=== PATIENT | female | born 1970 | race Caucasian/White ===

== ENCOUNTER 2024-03-05 06:31 | Outpatient (OUT) | payer OTHER, SELFPAY ==
--- NOTE | 2024-03-05 06:43 | MM_ITS ---
Patient Name: NAIMA HERNANDEZ MR#: [id number] : 1970 Exam Date: 03/05/2024 Ordering Doctor: DR REDDY ALBA . RADIOLOGY REPORT PROCEDURE: MM TOMOSYNTHESIS SCREENING BI COMPARISON: MG MAMM SCREEN 3D RONEN CAD, 11/05/2021. MAMMO RONEN SCREEN, 07/12/2020. MG MAMM SCREEN RONEN W CAD, 05/14/2019. MG MAMM RONEN DIAG W CAD DIG, 05/12/2013. INDICATIONS: Screening Calculator Name NCI Breast Cancer Risk Assessment Tool 5 Year Breast Cancer Risk 1.80% Lifetime Breast Cancer Risk 13.50% Personal Breast Cancer No Personal Ovarian Cancer No Treatments None Family Cancers None LOCATION: [facility] BREAST COMPOSITION: There are scattered areas of fibroglandular density. FINDINGS: DIAGNOSTIC CATEGORY 1--NEGATIVE. RIGHT BREAST: No significant suspicious finding. No significant change has occurred. LEFT BREAST: No significant suspicious finding. No significant change has occurred. RECOMMENDATIONS: ROUTINE MAMMOGRAM AND CLINICAL EVALUATION IN 12 MONTHS. PLEASE NOTE: A NORMAL MAMMOGRAM DOES NOT EXCLUDE THE POSSIBILITY OF BREAST CANCER. A CLINICALLY SUSPICIOUS PALPABLE LUMP SHOULD BE BIOPSIED. Dictated by: Vikas Negron M.D. on 03/05/2024 at 11:03 Approved by: Vikas Negron M.D. on 03/05/2024 at 11:04
--- NOTE | 2024-03-05 06:43 | XR_ITS ---
The [address] [address] Patient Name: NAIMA HERNANDEZ MRN: [id number] date: 1970 Sex: F Assigned Patient Location: [facility] Current Patient Location: [facility] Accession/Order Number: [id number] Exam Date: 03/05/2024 07:00 Report Date: 03/05/2024 07:37 At the request of: REDDY ALBA Procedure: XR DEXA axial skeleton EXAMINATION: XR DEXA axial skeleton HISTORY: Menopausal, Osteoporosis Screening COMPARISON: No relevant comparison available. TECHNIQUE: Dual-energy X-ray absorptiometry (DXA) was performed. FINDINGS: SPINE ANALYSIS: Average bone mineral density is 1.257 g/cm2. T-score (standard deviation relative to young adult mean): 0.6 . HIP ANALYSIS: Lowest bone mineral density is within the right femoral neck, 0.853 g/cm2. T-score (standard deviation relative to young adult mean): -1.3 . XR/XR DEXA axial skeleton IMPRESSION: World Health Organization Classification: Osteopenia - Moderate Fracture Risk FRAX: Cannot be calculated. Pharmacologic treatment recommendations * No uniform recommendation applies to all patients. Management plans must be individualized. * Consider initiating pharmacologic treatment in postmenopausal women and men >= 50 years of age who have the following: Primary fracture prevention: * T-score <= - 2.5 at the femoral neck, total hip, lumbar spine, 33% radius (some uncertainty with existing data) by DXA. * Low bone mass (osteopenia: T-score between - 1.0 and - 2.5) at the femoral neck or total hip by DXA with a 10-year hip fracture risk >= 3% or a 10-year major osteoporosis-related fracture risk >= 20% (i.e., clinical vertebral, hip, forearm, or proximal humerus) based on the [place]-adapted FRAXregistered model. Secondary fracture prevention: * Fracture of the hip or vertebra regardless of BMD [4, 5]. * Fracture of proximal humerus, pelvis, or distal forearm in persons with low bone mass (osteopenia: T-score between - 1.0 and - 2.5). The decision to treat should be individualized in persons with a fracture of the proximal humerus, pelvis, or distal forearm who do not have osteopenia or low BMD [12, 13]. Marian MS, Grecia SL, Praveen KL, Jill EM, Nghia KG, AJ, Libra ES. The clinician's guide to prevention and treatment of osteoporosis. Osteoporos Int. 2021;33(10):6543-0347. doi: 10.1007/g74975-423-96773-f. Epub 2021Aug 23. Erratum in: Osteoporos Int. 2021Nov 22;: PMID: [id number]; PMCID: [id number]. Electronically authenticated by: MILA STARKS Date: 03/05/2024 07:37
[2024-03-05 07:16] LABS: Alanine Aminotransferase 153 U/L (14-59); Albumin Globulin Ratio 1.1; Albumin Level 3.9 g/dL (3.4-5.0); Alkaline Phosphatase 102 U/L (46-116); Anion Gap 14.3; Aspartate Amino Transferase 98 U/L (15-37); BUN Creatinine Ratio 13.3; Bilirubin Total 0.4 mg/dL (0.2-1.0); Calcium 8.4 mg/dL (8.5-10.1); Carbon Dioxide 29.7 mmol/L (21.0-32.0); Chloride 105 mmol/L (98-107); Chol HDL Ratio 4.5; Cholesterol 232 mg/dL (<=200); Estimated GFR (African America >60 (>=60 mL/min/1.73m^2); Estimated GFR (Non-African Ame 59 (>=60 mL/min/1.73m^2); Globulin 3.6 g/dL; Glucose 112 mg/dL (74-106); HDL Cholesterol 51 mg/dL (40-60); Sodium 145 mmol/L (136-145); Total Protein 7.5 g/dL (6.4-8.2); Triglycerides 296 mg/dL (<=150); VLDL CHOLESTEROL 59.2 mg/dL
== END 2024-03-05 06:32 | disposition home or self-care (01) ==
LOC: MAMMO 06:31
PROVIDERS: PCP Family Medicine; Visit Provider Family Medicine
DX: Z12.31 Encounter for screening mammogram for malignant neoplasm of breast (principal); N95.1 Menopausal and female climacteric states; Z13.820 Encounter for screening for osteoporosis; Z09 Encounter for follow-up examination after completed treatment for conditions other than malignant neoplasm; R73.02 Impaired glucose tolerance (oral); I10 Essential (primary) hypertension; E78.2 Mixed hyperlipidemia; M85.80 Other specified disorders of bone density and structure, unspecified site
CPT/HCPCS: 36415; 77063; 77067; 77080; 80053; 80061

== ENCOUNTER 2024-03-29 20:45 | Outpatient (REF) | payer OTHER, SELFPAY ==
--- OUTSIDE RECORDS SUMMARY | 2024-03-29 20:50 | XMS_ITS | CCD ---
Author Organization [facility] Care Team Providers Care Manager Assembly Name Role Phone ANJALI, DR BLAKELY Admitting Unavailable HEMEYER, DR BLAKELY Attending Unavailable HEMEYER, DR BLAKELY Consulting Unavailable HEMEYER, DR BLAKELY Primary Care Unavailable HEMEYER, DR BLAKELY Admitting Unavailable HEMEYER, DR BLAKELY Attending Unavailable HEMEYER, DR BLAKELY Consulting Unavailable HEMEYER, DR BLAKELY Primary Care Unavailable HEMEYER, DR BLAKELY Primary Care Unavailable HEMEYER, DR BLAKELY Admitting Unavailable HEMEYER, DR BLAKELY Attending Unavailable HEMEYER, DR BLAKELY Consulting Unavailable MONTRELL WU Consulting Unavailable HEMEYER, DR BLAKELY Primary Care Unavailable KARASIK, DR MOORE Attending Unavailable KARASIK, DR MOORE Admitting Unavailable KARASIK, DR MOORE Consulting Unavailable KARASIK, DR MOORE Admitting Unavailable HEMEYER, DR BLAKELY Primary Care Unavailable KARASIK, DR MOORE Attending Unavailable KARASIK, DR MOORE Consulting Unavailable WEST, DR MONTRELL Auguste Consulting Unavailable Ernie Fuller Unavailable Enrique Alba Primary Care Unavailable Ernie Fuller Attending UnavailErnie Moreno Admitting Unavailabl Ben Gooden Unavailable Elyse Floresght E Primary Care Provider UnavailTaylor Nava RD Unavailable [phone] RADHA ABDUL Referring UnavailTAYLOR Nava Attending Unavailable GIANNA, RONAK E Primary Care Unavailable RADHA ABDUL Attending Unavailabl MIKE Rogers Referring Unavailable GIANNA, RONAK E Primary Care Unavailable MARIAJOSE ASHER Attending Unavailable ELYSE FLORESGHT E Primary Care Unavailable Enrique Alba MD Primary Care Provider ENRIQUE ALBA Attending Unavailable HEMEYER, EDWARD J Attending Unavailable ENRIQUE ALBA Attending Unavailable ENRIQUE ALBA Attending Unavailable SERENA HARRIS Attending Unavailable ENRIQUE ALBA Referring Unavailable ASTRID LORENZANA Attending Unavailable ENRIQUE ALBA Referring Unavailable ASTRID LORENZANA Attending Unavailable ENRIQUE ALBA Referring Unavailable SERENA HARRIS Attending Unavailable ENRIQUE ALBA Referring Unavailable ENRIQUE ALBA Attending Unavailable NGHIA VENTURA Attending Unavailable ENRIQUE ALBA Referring Unavailable ENRIQUE ALBA Attending Unavailable Allergies Allergy Classification Reported Allergen(s) Allergy Type Date of Onset Reaction(s) Facility (12 sources) DULoxetine Drug Allergy 2 [facility] (7 sources) metFORMIN Drug Allergy 4 GI intolerance [facility] Work Phone: Medications Current Medications Medication Drug Class(es) Dates Sig (Normalized) Sig (Original) [id number] 200 actuat albuterol 0.09 mg/actuat metered dose inhaler (14 sources) beta2-Adrenergic Agonist Start: 05-14-2023 take 2 puff(s) by inhalation every six hours for wheezing albuterol HFA (ProAir HFA) 90 mcg/act inhaler Indications: Bronchitis Inhale 2 puffs every 6 (six) hours if needed for wheezing 18 g 3 05/14/2023 Active Start: 09-26-2017 take 2 puff(s) by in halation every six hours as needed albuterol HFA (PROVENTIL HFA, VENTOLIN HFA) 90 mcg/actuation inhaler Inhale 2 Puffs as instructed every 6 hours as needed. 0 09/26/2017 Active Comment on above: Inhale 2 Puffs as in structed every 6 hours as needed. diclofenac sodium 0.03 mg/mg topical gel (12 sources) Nonsteroidal Anti-inflammatory Drug Start: 07-24-19 diclofenac sodium 3 % gel Apply 1 application topically every 6 (six) hours. 07/23/2021 Active fenofibrate 160 mg oral tablet (10 sources) Peroxisome Proliferator Receptor alpha Agonist Start: 03-15-20 24 End: 09-12-19 25 take 1 tablet by mouth once daily fenofibrate (Triglide) 160 MG tablet Indications: Mixed hyperlipidemia (CMS/HCC) Take 1 tablet (160 mg) by mouth Daily 90 tablet 1 03/15/2024 09/11/2024 Active Start: 03-11-2024 End: 03-15-2024 take 1 capsule by mouth once daily Fenofibrate 150 MG capsule Indications: Mixed dyslipidemia (CMS/HCC) Take 150 mg by mouth Daily 30 capsule 03/11/2024 03/15/2024 Discontinued (Formulary change) Start: 01-29-2023 End: 02-25-2024 take 1 tablet by mouth in the morning fenofibrate (Tricor) 145 MG tablet Indications: Mixed hyperlipidemia (CMS/HCC) Take 1 tablet (145 mg) by mouth in the morning. 90 tablet 1 01/29/2023 02/25/2024 Discontinued (Therapy completed) fluconazole 150 mg oral tablet (2 sources) Azole Antifungal Start: 03-29-2024 End: 03-29-2024 take 1 tablet by mouth once fluconazole (Diflucan) 150 MG tablet Indications: Yeast infection of the skin Take 1 tablet (150 mg) by mouth 1 (one) time for 1 dose 1 tablet 03/29/2024 03/29/2024 Active melatonin 10 mg oral tablet (12 sources) take 1 tablet by mouth at bedtime melatonin 10 MG tablet Take 1 tablet by mouth at bedtime. Active 24 hr metFORMIN hydrochloride 500 mg extended release oral tablet (7 sources) Biguanide Start: 03-11-2024 End: 04-10-2024 take 1 tablet by mouth every twenty-four hours at mealtime metFORMIN XR (Glucophage-XR) 500 MG 24 hr tablet Indications: Pre-diabetes Take 1 tablet (500 mg) by mouth in the evening. Take with meals Do not crush, chew, or split. 30 tablet 03/11/2024 04/10/2024 Active rOPINIRole 0.5 mg oral tablet (14 sources) Nonergot Dopamine Agonist Start: 09-15-2023 End: 03-11-2024 rOPINIRole (Requip) 0.5 MG tablet Indications: Restless Leg Syndrome One tablet at bedtime 90 tablet 1 03/11/2024 Active Completed/Discontinued Medications Medication Drug Class(es) Dates Sig (Normalized) Sig (Original) escitalopram 5 mg oral tablet (3 sources) Serotonin Reuptake Inhibitor Start: 12-25-2023 End: 02-25-2024 take 1 tablet by mouth once daily escitalopram (Lexapro) 5 MG tablet Indications: Recurrent major depressive disorder, in partial remission (HCC) (CMS/HCC) Take 1 tablet (5 mg) by mouth Daily 30 tablet 12/25/2023 02/25/2024 Discontinued (Therapy completed) gabapentin 300 mg oral capsule (6 sources) Anti-epileptic Agent Start: 08-19-2023 End: 02-25-2024 take 1 capsule by mouth at bedtime gabapentin (Neurontin) 300 MG capsule Indications: Acute left-sided back pain with sciatica Take 1 capsule (300 mg) by mouth at bedtime 90 capsule 1 08/19/2023 02/25/2024 Discontinued Start: 07-23-2023 End: 02-25-2024 gabapentin (Neurontin) 100 M G capsule Indications: Acute left-sided back pain with sciatica 2 capsules three times daily as needed for pain 180 capsule 1 07/23/2023 02/25/2024 Discontinued liothyronine sodium 0.005 mg oral tablet (1 source) l-Triiodothyronine End: 08-01-2022 take 1 tablet by mouth once daily liothyronine (CYTOMEL) 5 mcg tablet Take 5 mcg by mouth once daily. 0 08/01/2022 Discontinued Comment on above: Take 5 mcg by mouth once daily. meloxicam 15 mg oral tablet (6 sources) Nonsteroidal Anti-inflammatory Drug Start: 08-01-2022 End: 02-25-2024 take 1 tablet by mouth once daily meloxicam (MOBIC) 15 mg tablet Indications: Erosive osteoarthritis of both hands Take 1 tablet by mouth once daily. 30 tablet 2 08/01/2022 10/30/2022 Start: 10-14-2019 End: 08-01-2022 take 1 tablet by mouth once daily meloxicam (MOBIC) 7.5 mg tablet Take 1 tablet by mouth once daily. Stop all other anti-inflammatories 30 tablet 0 10/14/2019 08/01/2022 Discontinued (Changing Therapy/Dosage Form) Comment on above: Take 1 tablet by barrington th once daily. Take 1 tablet by barrington th once daily. Stop all other anti-inflammatories metaxalone 800 mg oral tablet (1 source) End: 08-01-2022 metaxalone (METAXALL) 800 mg tablet Take 800 mg by mouth as needed. 0 08/01/2022 Discontinued Comment on above: Take 800 mg by mouth as needed. Problems Active Problems Problem Classification Problem Date Documented Date Episodic/Chronic Administrative/social admission (2 sources) Advance directive discussed with patient; 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: [Other specified counseling] 02-19-2024 Episodic Diabetes mellitus without complication (20 sources) Impaired glucose tolerance (oral); 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: [Impaired glucose tolerance] Onset: 10-12-2021 09-17-2022 Episodic Disorders of lipid metabolism (20 sources) Mixed hyperlipidemia; 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: [Mixed hyperlipidemia] Onset: 03-29-2021 Chronic Essential hypertension (19 sources) Essential (primary) hypertension; 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: [Hypertensive disorder] Onset: 10-12-2021 Chronic Genitourinary symptoms and ill-defined conditions (20 sources) Urge incontinence of urine; 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: [Urge incontinence] Onset: 09-17-2022 09-17-2022 Chronic Immunizations and screening for infectious disease (1 source) Encounter for screening for human papillomavirus (HPV); 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: [ENC SCREENING HUMAN PAPILLOMAVIRUS] Onset: 11-05-2021 Episodic Malaise and fatigue (12 sources) Fatigue; 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: [Chronic fatigue, unspecified] Onset: 09-17-2022 09-17-2022 Chronic Menopausal disorders (2 sources) Menopausal syndrome; 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: [Menopausal and female climacteric states] 02-26-2024 Chronic Miscellaneous mental health disorders (12 sources) Insomnia disorder related to another mental disorder; 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: [Insomnia due to other mental disorder] Onset: 09-17-2022 09-17-2022 Chronic Mood disorders (12 sources) Recurrent major depression in partial remission; 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: [Major depressive disorder, recurrent, in partial remission] Onset: 09-17-2022 09-17-2022 Chronic Mycoses (2 sources) Candidiasis of skin; 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: [Candidiasis of skin and nail] 03-29-2024 Episodic Osteoarthritis (20 sources) Osteoarthritis of joint of bilateral hands; 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: [Erosive (osteo)arthritis] Onset: 09-17-2022 Chronic Other aftercare (3 sources) 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; 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: [long term (current) use of non-steroidal anti-inflammatories (NSAID)] Episodic Other connective tissue disease (3 sources) History of total knee arthroplasty; 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: [Presence of unspecified artificial knee joint] Onset: 11-27-2012 11-27-2012 Chronic Other diseases of bladder and urethra (12 sources) Overactive bladder; 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: [Overactive bladder] Onset: 09-17-2022 09-17-2022 Chronic Other female genital disorders (1 source) Other specified noninflammatory disorders of vagina; 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: [OTH SPEC NONINFLAMMATORY D/O VAGINA] Onset: 11-05-2021 Episodic Other hereditary and degenerative nervous system conditions (14 sources) Restless legs; 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: [Restless legs syndrome] Onset: 08-14-2023 08-14-2023 Chronic Other liver diseases (1 source) Inflammatory liver disease, unspecified; 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: [INFLAMMATORY LIVER DISEASE UNS] Onset: 10-18-2021 Chronic Other liver diseases (17 sources) Fatty (change of) liver, not elsewhere classified; 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: [Other chronic nonalcoholic liver disease] Onset: 10-18-2021 Chronic Other liver diseases (5 sources) Steatosis of liver; 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: [Fatty (change of) liver, not elsewhere classified] Chronic Other liver diseases (12 sources) Inflammatory disease of liver; 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: [Inflammatory liver disease, unspecified] Onset: 09-17-2022 09-17-2022 Chronic Other liver diseases (3 sources) Elevated liver enzymes level; 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: [Abnormal levels of other serum enzymes] Episodic Other liver diseases (3 sources) Abnormal levels of other serum enzymes; 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: [Abnormal levels of other serum enzymes] Onset: 02-20-2022 Episodic Other nervous system disorders (12 sources) Chronic pain; 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: [Other chronic pain] Onset: 09-17-2022 09-17-2022 Chronic Other nutritional; endocrine; and metabolic disorders (2 sources) Obesity; 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: [Obesity, unspecified] Chronic Other nutritional; endocrine; and metabolic disorders (1 source) Severe obesity; 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: [Morbid (severe) obesity due to excess calories] Chronic Other nutritional; endocrine; and metabolic disorders (14 sources) Morbid obesity; 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: [Morbid (severe) obesity due to excess calories] Onset: 09-17-2022 09-17-2022 Chronic Other nutritional; endocrine; and metabolic disorders (14 sources) Body mass index 40+ - severely obese; 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: [Body mass index (BMI) 45.0-49.9, adult] Onset: 05-14-2023 05-14-2023 Chronic Other screening for suspected conditions (not mental disorders or infectious disease) (13 sources) Encounter for screening mammogram for malignant neoplasm of breast; 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: [Encounter for screening for malignant neoplasm of cervix] Onset: 11-01-2021 Episodic Residual codes; unclassified (12 sources) Dependence on enabling machine or device; 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: [Dependence on other enabling machines and devices] Onset: 09-17-2022 09-17-2022 Chronic Residual codes; unclassified (12 sources) Obstructive sleep apnea syndrome; 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: [Obstructive sleep apnea (adult) (pediatric)] Onset: 09-17-2022 09-17-2022 Chronic Residual codes; unclassified (1 source) Acquired absence of other specified parts of digestive tract; 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: [ACQ ABSENCE OTH PART DIGESTV TRACT] Onset: 10-18-2021 Episodic Unclassified (1 source) New Patient Onset: 10-30-2022 Past or Other Problems Problem Classification Problem Date Documented Da te Episodic/Chronic Other female genital disorders (12 sources) Pain in female genitalia on intercourse; 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: [Unspecified dyspareunia] Onset: 09-17-2022 Resolved: 02-25-2024 09-17-2022 Chronic Other female genital disorders (12 sources) Disorder of female genital system; 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: [Unspecified condition associated with female genital organs and menstrual cycle] Onset: 09-17-2022 Resolved: 12-11-2023 12-11-2023 Episodic Other nervous system disorders (12 sources) Left-sided piriformis syndrome; 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: [Lesion of sciatic nerve, left lower limb] Onset: 09-17-2022 Resolved: 02-25-2024 09-17-2022 Chronic Other non-traumatic joint disorders (3 sources) Pain in right knee; 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: [Pain in joint, lower leg] Onset: 08-26-2012 08-26-2012 Episodic Residual codes; unclassified (12 sources) Sleep disorder; 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: [Sleep disorder, unspecified] Onset: 09-17-2022 09-17-2022 Episodic Thyroid disorders (12 sources) Sick-euthyroid syndrome; 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: [Sick-euthyroid syndrome] Onset: 09-17-2022 09-17-2022 Episodic Results Test Name Value Interpretation Reference Range Facility ALL LIPID PROFILE (FASTING)o n 03-05-2024 CHOL HDL RATIO 4.5 [facility] Comment on above: 3.3 - 4.4 LOW RISK 4.4 - 7.1 AVERAGE RISK 7.1 - 11.0 MODERATE RISK >11.0 HIGH RISK Cholesterol [Mass/Vol] 232 mg/dL High NINF - 200 mg/dL [facility] Cholesterol in HDL [Mass/Vol] 51 mg/dL 40 - 60 mg/dL [facility] Comment on above: > or =60 mg/dl - LOW CARDIOVASCULAR RISK <40 mg/dl - HIGH CARDIOVASCULAR RISK Magnesium [Mass/Vol] 122 mg/dL [facility] Comment on above: <100 mg/dl OPTIMAL 100-129 mg/dl NEAR OR ABOVE OPTIMAL 130-159 mg/dl BORDERLINE HIGH 160-189 mg/dl HIGH >190 mg/dl VERY HIGH Magnesium [Mass/Vol] 59.2 mg/dL [facility] Triglyceride [Mass/Vol] 296 mg/dL High NINF - 150 mg/dL [facility] CMP (CMP) (FOR REMOTE FH C USE)on 03-05-2024 Albumin [Mass/Vol] 3.9 g/dL 3.4 - 5.0 g/dL [facility] ALBUMIN GLOBULIN RATIO 1.1 [facility] ALP [Catalytic activity/Vol] 102 U/L 46 - 116 U/L [facility] ALT [Catalytic activity/Vol] 153 U/L High 14 - 59 U/L [facility] Anion gap [Moles/Vol] 14.3 mmol/L [facility] AST [Catalytic activity/Vol] 98 U/L High 15 - 37 U/L [facility] Bilirubin [Mass/Vol] 0.4 mg/dL 0.2 - 1.0 mg/dL [facility] Calcium [Mass/Vol] 8.4 mg/dL Low 8.5 - 10. 1 mg/dL [facility] Chloride [Moles/Vol] 105 mmol/L 98 - 107 mmol/L [facility] CO2 [Moles/Vol] 29.7 mmol/L 21.0 - 32.0 mmol/L [facility] Creatinine [Mass/Vol] 0.98 mg/dL 0.55 - 1.02 mg/dL [facility] GFR/1.73 sq M.predicted CKD-EPI (S/P/Bld) [Vol rate/Area] >60 >=60 mL/min/1.73m 2 [facility] Globulin (S) [Mass/Vol] 3.6 g/dL [facility] Glucose [Mass/Vol] 112 mg/dL High 74 - 106 mg/dL [facility] Potassium [Moles/Vol] 4 mmol/L 3.5 - 5.1 mmol/L [facility] Protein [Mass/Vol] 7.5 g/dL 6.4 - 8.2 g/dL [facility] Sodium [Moles/Vol] 145 mmol/L 136 - 145 mmol/L [facility] TBH EGFR-NON AF BANGLADESHI 59 Low >=60 mL/min/1.73m 2 [facility] Urea nitrogen [Mass/Vol] 13 mg/dL 7.0 - 18.0 mg/dL [facility] Urea nitrogen/Creatinine [Mass ratio] 13.3 mg/mg [facility] No Panel Informationon 03-05 Interpretation and review of laboratory results Abnormal [facility] CNOVon 10-30-2022 CNOV Office Visit (GASTAV ) NAIMA RIOS ([id number]) 1970 F Date Time Provider Department 10/30/22 1:00 PM RADHA ABDUL During your visit today, we recorded the following information about you: Weight Height 120.2 kg 1.6 m Radha Richey MD 10/30/2022 2:34 PM Signed [facility]atology Clinic Mindy Richey MD, FACG, FAASLD Director, [facility] Hepatology [facility] Consult Requested By: Mike Saeed [id number] [facility] [id number] for evaluation of her fatty liver .. Thank you Dr Alba I will share my finding via in basket HPI: Follows with Dr Spears 52 yo lady with partner she has been with a BMI> 46 for years she had a fibroscan 01/2022 showing fatty liver unsure of scarring never had a liver biopsy she has abnormal liver enzymes she has dyslipidemia she has no CAD has not seen nutritonist liver US IMPRESSION: 1 liver is prominent in size measuring 18 cm. There is diffuse increased echogenicity of liver consistent with fatty infiltration of the liver. 2. Absent gallbladder. 3. The remainder the right upper quadrant was unremarkable. Electronically authenticated by: MONTRELL WU Date: 2021-10-16 07:39 never used to drink alcohol GENERAL REVIEW OF SYSTEMS: GENERAL: No unexplained weight changes or fevers. HEENT: Negative for severe headaches, negative for changes in hearing or vision. NECK: Negative for lumps, masses or pain. RESPIRATORY: Negative for coughing, wheezing or significant dyspnea. CARDIOVASCULAR: Negative for chest pain or heart palpitations. GASTROINTESTINAL: Negative for rectal bleeding or black tarry stools. GENITOURINARY: Negative for dysuria or urinary incontinence. MUSCULOSKELETAL: Negative for unexplained joint pains, dislocations or fractures. NEUROLOGIC: Negative for unexplained weakness or vertigo. SKIN: Negative for new lesions or rashes. ENDOCRINE: Negative for cold or heat intolerance . has a CPAP No family history on file. PAST MEDICAL HISTORY Diagnosis Date Bilateral knee pain 08/26/2012 OA BMI 40.0-44.9, adult (HCC) BMI 42 Mixed hyperlipidemia Hyperlipidemia PAST SURGICAL HISTORY Procedure Laterality Date ARTHRS KNE SURG W/MENISCECTOMY MED/LAT W/SHVG Bilateral DELIVERY ONLY , low transverse COLONOSCOPY FLX DX W/COLLJ SPEC WHEN PFRMD Colonoscopy EGD EXTRACTION, ERUPTED TOOTH OR EXPOSED ROOT (ELEVATION AND/OR FORCEPS REMOVAL) Social History Tobacco Use Smoking status: Never Smokeless tobacco: Never Substance Use Topics Alcohol use: No Drug use: No Current Outpatient Medications on File Prior to Visit Medication Sig albuterol HFA (PROVENTIL HFA, VENTOLIN HFA) 90 mcg/actuation inhaler Inhale 2 Puffs as instructed every 6 hours as needed. meloxicam (MOBIC) 15 mg tablet Take 1 tablet by mouth once daily. No current facility-administered medications on file prior to visit. albuterol HFA (PROVENTIL HFA, VENTOLIN HFA) 90 mcg/actuation inhaler Inhale 2 Puffs as instructed every 6 hours as needed. meloxicam (MOBIC) 15 mg tablet Take 1 tablet by mouth once daily. PHYSICAL EXAMINATION: Ht 5' 3 (1.60m) Wt 265 lb (120.2kg) LMP 03/09/2013 BMI 46.95 kg/(m2). General: well appearing no distress HEENT negative no icterus Lungs CTA ronen COR rrm- Abdomen benign Extremities no edema no spiders no palmar erythema WASHER CARCASS no asterixis , a+0 X3 Glucose Date Value Ref Range Status 03/31/2013 157 (H) 65 - 100 mg/dL Final CRP Date Value Ref Range Status 10/14/2019 0.6 <0.9 mg/dL Final TG 230 HDL 50 ast /alt 36/50 Fibroscan done 01/2022 A/p: Dear Dr Alba Naima is a 52 yo lady she has abnormal liver tests, fatty liver, and a bmi> 45, YOLI we discussed need for : nutriional referral start GLP1RA/ Wegovy start statins exercise 300 min a week plus 3 days a week strenuous patient to discuss the above with Dr Alba rtc 4-7m Radha Richey MD Consider seeing me at [facility] on a Thank you again for your kind referral. Please feel free to contact me if I can be of further assistance to you {I spent 45 minutes in the visit, with more than 50% of the total dayl-vu-sbfu time of the visit in counseling / coordination of care. Referring Provider: MIKE SAEED [[id number]] Allergies As of Date: 10/30/2022 (No Known Allergies) Date Reviewed: 10/30/2022 Reviewed by: RIVER Stuart - Fully Assessed Reason for Visit: New Patient [172] Cmt: Consult for fatty liver Primary Visit Diagnosis:Fatty liver [K76.0] Other Visit Diagnosis:Class 3 severe obesity due to excess calories in adult, unspecified BMI, unspecified whether serious comorbidity present (HCC) [E66.01] Order(s):CELIAC SCREEN WITH REFLEX [SQCELSCR] Order #: [id number] FUTURE HEPATITIS A ANTIBODY, IGG [SQAHAVG] Order #: [id number] FUTURE (more content not included)... Normal [facility] CNOVon 08-01-2022 CNOV Office Visit (VONNIEUAV ) NAIMA RIOS ([id number]) 1970 F Date Time Provider Department 08/01/22 3:00 PM MARIAJOSE ASHER During your visit today, we recorded the following information about you: Pulse Blood pressure 101/minute 177/81 Mariajose Asher MD 08/01/2022 3:52 PM Signed Rheumatology Outpatient Clinic Date of Service: 08/01/2022 Patient: Naima Rios Medical Record: [id number] Primary Care Physician: Ronak Flores Last Rheumatology visit: None at [facility] History of Present Illness Naima Rios is a 51 year old White female who presents on 08/01/2022 for an in-person visit for evaluation of New Patient (Arthritis in hands ) and Joint Pain. She is currently taking meloxicam. Naima is RF negative - 9 (10/14/2019). Her most recent ARTIE was negative (10/14/2019). HISTORY OF PRESENT ILLNESS Patient presents for evaluation of joint pain in several different joints. She states that she is have problems with the DIP joints of several of the fingers most active in her left second DIP joint. She has also had problems with her feet particular her right second and third toe have flared to the point where she thought she had a gout attack on 1 occasion in terms just to be a osteoarthritis flareup. She has some left hip pain and bilateral shoulder pain. She has had bilateral knee replacements due to her osteoarthritis. She is seen orthopedic surgery Dr. Romo in 2019 did labs that were all normal and noncontributory for her arthritis assessment. She also underwent hand x-rays that show erosive changes of osteoarthritis in the DIP joints. He had recommended occupational therapy which gave her slight improvement. She also initiated meloxicam at 7.5 mg orally once each day. She has tried this in combination with topical Voltaren gel and feels the gel has provided little additional benefit. She feels she does best when she is on consistent meloxicam. Her family doctor states that he is not comfortable with the risks associated with chronic NSAID use and recommends intermittent use. Patient feels that intermittent use is ineffective and painful. Patient-Entered Data PAIN EVALUATION 07/29/2022 0726 08/01/2022 1452 Pain Level: 7 8 Pain Location: Finger Hand-Left hands, shoulders, left hip, Description: Stiffness Stabbing;Stiffness;Ac shanelle Duration Units: Months Years Frequency: Continuous Continuous Intervention/Comfort measure: Medication;Massage;Th erapeutic techniques-CPRP Medication;Relaxation ;Heat;Exercise;Massag e Comments: Fingers, toes, left hip, shoulders -- PROMIS Assessments PROMIS Assessments 07/29/2022 Physical Health Percentile 15 % Pain Score 2 Pain Interference Percentile 5 % Fatigue Percentile 46 % Physical Function Percentile 21 % RAPID 3 [place] Activities of Daily Living 07/29/2022 7:33 AM Dress self? With SOME difficulty Get in and out of bed? With SOME difficulty Walk outdoors? With SOME difficulty Wash and dry body? With SOME difficulty Get in and out of car? With SOME difficulty RAPID 3 Disease Activity Weighed Score Levels: 0 - 1: Near Remission 1.3 - 2.0: Low Severity 2.3 - 4.0: Moderate Severity 4.3 - 10.0: High Severity RAPID-3 Weighed Score 07/29/2022 RAPID 3 Weighed Score 5.22 (High Severity (HS)) Review of Systems Review of Systems CONSTITUTION: Negative for: Fever and Recent weight change HEENT: Negative for: Nosebleeds, Mouth sores, Trouble swallowing and Dry mouth RESPIRATORY: Positive for: Shortness of breath Negative for: Cough and Pain with breathing GASTROINTESTINAL: Negative for: Melena, Diarrhea, Heartburn and Abdominal pain MUSCULOSKELETAL: Positive for: Arthralgias, Myalgias, Muscle weakness, Joint swelling and Morning Joint Stiffness NEUROLOGICAL: Positive for: Headaches Negative for: Numbness and Memory loss SKIN: Negative for: Rash, Skin changes, Hair loss and Nail changes EYES: Negative for: Eye pain, Eye redness, Eye dryness and visual disturbance CARDIOVASCULAR: Negative for: Chest pain and Leg swelling GENITOURINARY: Negative for: Dysuria and Hematuria HEMATOLOGIC/LYMPHATIC : Negative for: Swollen glandsAll other reviewed and negative other than HPI. Past Medical History PAST MEDICAL HISTORY Diagnosis Date Bilateral knee pain 08/26/2012 OA BMI 40.0-44.9, adult (HCC) BMI 42 Mixed hyperlipidemia Hyperlipidemia Past Surgical History PAST SURGICAL HISTORY Procedure Laterality Date DELIVERY ONLY , low transverse COLONOSCOP W/ OR W/O [facility] SPEC Colonoscopy EGD EXTRACTION, ERUPTED TOOTH OR EXPOSED ROOT (ELEVATION AND/OR FORCEPS REMOVAL) KNEE SCOPE,MENISECTOMY,MED OR LAT Bilateral Family History No family history on file. Social History Social History Tobacco Use Smoking status: Never Smokeless tobacco: Never Substance Use Topics Alcohol use: No Drug use: No C (more content not included)... Normal [facility] Ammoniaon 02-20-2022 Ammonia (P) [Moles/Vol] 19 umol/L Normal 11-35 [facility] Comment on above: Order Comment: Reaso n for Exam Elevated liver enzymes;Fatty liver Result Comment: PERF ORMED BY: [place] [address] PATHOLOGIST JOINT CUTTER DAGMAR CANO M.D. Performed By: #### C BC, CMP, AMM, ADAL, PT, LIPID #### [address] Complete Blood Count Auto Di ffon 02-20-2022 Basophils (Bld) [#/Vol] 0.0 10*3/uL Normal 0.0-0.2 [facility] Comment on above: Order Comment: Reaso n for Exam Elevated liver enzymes;Fatty liver Result Comment: PERF ORMED BY: [place] [address] PATHOLOGIST JOINT CUTTER DAGMAR CANO M.D. Performed By: #### C BC, CMP, AMM, ADAL, PT, LIPID #### [place] [address] [place] Basophils/100 WBC (Bld) 0.4 % Normal . [facility] Comment on above: Order Comment: Reaso n for Exam Elevated liver enzymes;Fatty liver Performed By: #### C BC, CMP, AMM, ADAL, PT, LIPID #### [facility] [address] [place] [address] [place] Eosinophils (Bld) [#/Vol] 0.1 10*3/uL Normal 0.0-0.45 [facility] Comment on above: Order Comment: Reaso n for Exam Elevated liver enzymes;Fatty liver Performed By: #### C BC, CMP, AMM, ADAL, PT, LIPID #### [facility] [address] Eosinophils/100 WBC (Bld) 1.1 % Normal . [facility] Comment on above: Order Comment: Reaso n for Exam Elevated liver enzymes;Fatty liver Performed By: #### C BC, CMP, AMM, ADAL, PT, LIPID #### [address] Erythrocyte distribution width (RBC) [Ratio] 14.6 % Normal 11.9-15.3 [facility] Comment on above: Order Comment: Reaso n for Exam Elevated liver enzymes;Fatty liver Performed By: #### C BC, CMP, AMM, ADAL, PT, LIPID #### [address] Hematocrit (Bld) [Volume fraction] 45.3 % Normal 34.0-46.4 [facility] Comment on above: Order Comment: Reaso n for Exam Elevated liver enzymes;Fatty liver Performed By: #### C BC, CMP, AMM, ADAL, PT, LIPID #### [address] Hemoglobin (Bld) [Mass/Vol] 15.2 g/dL Normal 11.8-15.4 [facility] Comment on above: Order Comment: Reaso n for Exam Elevated liver enzymes;Fatty liver Performed By: #### C BC, CMP, AMM, ADAL, PT, LIPID #### [place] [address] [place] Lymphocytes (Bld) [#/Vol] 1.6 10*3/uL Normal 1.00-4.8 [facility] Comment on above: Order Comment: Reaso n for Exam Elevated liver enzymes;Fatty liver Performed By: #### C BC, CMP, AMM, ADAL, PT, LIPID #### [place] [address] [place] Lymphocytes/100 WBC (Bld) 26.9 % Normal . [facility] Comment on above: Order Comment: Reaso n for Exam Elevated liver enzymes;Fatty liver Performed By: #### C BC, CMP, AMM, ADAL, PT, LIPID #### [facility] [address] MCH (RBC) [Entitic mass] 27.3 pg Normal 24.7-34.3 [facility] Comment on above: Order Comment: Reaso n for Exam Elevated liver enzymes;Fatty liver Performed By: #### C BC, CMP, AMM, ADAL, PT, LIPID #### [facility] [address] MCV (RBC) [Entitic vol] 81.5 fL Normal 80-100 [facility] Comment on above: Order Comment: Reaso n for Exam Elevated liver enzymes;Fatty liver Performed By: #### C BC, CMP, AMM, ADAL, PT, LIPID #### [address] Mean Corpuscular HGB Conc 33.5 g/dL Normal 32.0-35.0 [facility] Comment on above: Order Comment: Reaso n for Exam Elevated liver enzymes;Fatty liver Performed By: #### C BC, CMP, AMM, ADAL, PT, LIPID #### [address] Monocytes (Bld) [#/Vol] 0.4 10*3/uL Normal 0.0-0.8 [facility] Comment on above: Order Comment: Reaso n for Exam Elevated liver enzymes;Fatty liver Performed By: #### C BC, CMP, AMM, ADAL, PT, LIPID #### [facility] [address] [place] [address] [place] Monocytes/100 WBC (Bld) 6.3 % Normal . [facility] Comment on above: Order Comment: Reaso n for Exam Elevated liver enzymes;Fatty liver Performed By: #### C BC, CMP, AMM, ADAL, PT, LIPID #### [facility] [address] [place] [address] [place] Neutrophils (Bld) [#/Vol] 3.9 10*3/uL Normal 1.8-7.7 [facility] Comment on above: Order Comment: Reaso n for Exam Elevated liver enzymes;Fatty liver Performed By: #### C BC, CMP, AMM, ADAL, PT, LIPID #### [facility] [address] Neutrophils/100 WBC (Bld) 65.3 % Normal . [facility] Comment on above: Order Comment: Reaso n for Exam Elevated liver enzymes;Fatty liver Performed By: #### C BC, CMP, AMM, ADAL, PT, LIPID #### [facility] [address] [place] [address] [place] Nucleated RBC/100 WBC (Bld) [Ratio] 0.2 % Normal 0-0.5 [facility] Comment on above: Order Comment: Reaso n for Exam Elevated liver enzymes;Fatty liver Performed By: #### C BC, CMP, AMM, ADAL, PT, LIPID #### [facility] [address] Platelet mean volume (Bld) [Entitic vol] 8.2 fL Normal 6.3-10.7 [facility] Comment on above: Order Comment: Reaso n for Exam Elevated liver enzymes;Fatty liver Performed By: #### C BC, CMP, AMM, ADAL, PT, LIPID #### [facility] [address] [place] [address] [place] Platelets (Bld) [#/Vol] 282 10*3/uL Normal 150-450 [facility] Comment on above: Order Comment: Reaso n for Exam Elevated liver enzymes;Fatty liver Performed By: #### C BC, CMP, AMM, ADAL, PT, LIPID #### [facility] [address] [place] [address] [place] RBC (Bld) [#/Vol] 5.56 10*6/uL High 3.60-5.00 [facility] Comment on above: Order Comment: Reaso n for Exam Elevated liver enzymes;Fatty liver Performed By: #### C BC, CMP, AMM, ADAL, PT, LIPID #### [facility] [address] WBC (Bld) [#/Vol] 5.9 10*3/uL Normal 4.5-11.0 [facility] Comment on above: Order Comment: Reaso n for Exam Elevated liver enzymes;Fatty liver Performed By: #### C BC, CMP, AMM, ADAL, PT, LIPID #### [facility] [address] Comprehensive Metabolic Pane grace 02-20-2022 Albumin [Mass/Vol] 4.4 g/dL Normal 3.2-5.5 [facility] Comment on above: Order Comment: Reaso n for Exam Elevated liver enzymes;Fatty liver Performed By: #### C BC, CMP, AMM, ADAL, PT, LIPID #### [facility] [address] Albumin/Globulin [Mass ratio] 1.6 {ratio} Normal [facility] Comment on above: Order Comment: Reaso n for Exam Elevated liver enzymes;Fatty liver Performed By: #### C BC, CMP, AMM, ADAL, PT, LIPID #### [facility] [address] ALP [Catalytic activity/Vol] 75 U/L Normal 32-92 [facility] Comment on above: Order Comment: Reaso n for Exam Elevated liver enzymes;Fatty liver Performed By: #### C BC, CMP, AMM, ADAL, PT, LIPID #### [facility] [address] [place] [address] ALT [Catalytic activity/Vol] 71 U/L High 10-60 [facility] Comment on above: Order Comment: Reaso n for Exam Elevated liver enzymes;Fatty liver Performed By: #### C BC, CMP, AMM, ADAL, PT, LIPID #### [facility] [address] [place] [address] Anion gap [Moles/Vol] 11.4 mmol/L Normal 6.0-15.0 [facility] Comment on above: Order Comment: Reaso n for Exam Elevated liver enzymes;Fatty liver Performed By: #### C BC, CMP, AMM, ADAL, PT, LIPID #### [facility] [address] [place] [address] [place] AST [Catalytic activity/Vol] 51 U/L High 10-42 [facility] Comment on above: Order Comment: Reaso n for Exam Elevated liver enzymes;Fatty liver Performed By: #### C BC, CMP, AMM, ADAL, PT, LIPID #### [facility] [address] Bilirubin [Mass/Vol] 0.7 mg/dL Normal 0.3-1.2 [facility] Comment on above: Order Comment: Reaso n for Exam Elevated liver enzymes;Fatty liver Performed By: #### C BC, CMP, AMM, ADAL, PT, LIPID #### [facility] [address] Calcium [Mass/Vol] 9.3 mg/dL Normal 8.2-10.2 [facility] Comment on above: Order Comment: Reaso n for Exam Elevated liver enzymes;Fatty liver Performed By: #### C BC, CMP, AMM, ADAL, PT, LIPID #### [facility] [address] [place] [address] [place] Chloride [Moles/Vol] 102 mmol/L Normal 95-114 [facility] Comment on above: Order Comment: Reaso n for Exam Elevated liver enzymes;Fatty liver Performed By: #### C BC, CMP, AMM, ADAL, PT, LIPID #### [facility] [address] [place] [address] [place] CO2 [Moles/Vol] 25.6 mmol/L Normal 22.0-30.0 [facility] Comment on above: Order Comment: Reaso n for Exam Elevated liver enzymes;Fatty liver Performed By: #### C BC, CMP, AMM, ADAL, PT, LIPID #### [facility] [address] Creatinine [Mass/Vol] 0.78 mg/dL Normal 0.44-1.03 [facility] Comment on above: Order Comment: Reaso n for Exam Elevated liver enzymes;Fatty liver Performed By: #### C BC, CMP, AMM, ADAL, PT, LIPID #### [facility] [address] [place] [address] [place] Estimated GFR ( Daphne > 60 Normal [facility] Comment on above: Order Comment: Reaso n for Exam Elevated liver enzymes;Fatty liver Result Comment: GFR estimated reference range: According to KDOQI guidelines, <60 ml/min/1.73m2 is sufficient to diagnose a patient with chronic kidney disease. Performed By: #### C BC, CMP, AMM, ADAL, PT, LIPID #### [facility] [address] Estimated GFR (Non- Am > 60 Normal [facility] Comment on above: Order Comment: Reaso n for Exam Elevated liver enzymes;Fatty liver Performed By: #### C BC, CMP, AMM, ADAL, PT, LIPID #### [facility] [address] Globulin (S) [Mass/Vol] 2.7 g/dL Normal [facility] Comment on above: Order Comment: Reaso n for Exam Elevated liver enzymes;Fatty liver Performed By: #### C BC, CMP, AMM, ADAL, PT, LIPID #### [facility] [address] Glucose [Mass/Vol] 96 mg/dL Normal 70-100 [facility] Comment on above: Order Comment: Reaso n for Exam Elevated liver enzymes;Fatty liver Result Comment: [place] om Glucose Reference Range is dependent on time and content of last meal. Glucose of more than 200 mg/dL in a nonstressed, ambulatory subject supports the diagnosis of Diabetes Mellitus. ADA recommended reference range Performed By: #### C BC, CMP, AMM, ADAL, PT, LIPID #### [facility] [address] [place] [address] [place] Potassium [Moles/Vol] 4.0 mmol/L Normal 3.5-5.1 [facility] Comment on above: Order Comment: Reaso n for Exam Elevated liver enzymes;Fatty liver Performed By: #### C BC, CMP, AMM, ADAL, PT, LIPID #### [facility] [address] [place] [address] [place] Protein [Mass/Vol] 7.1 g/dL Normal 6.1-7.9 [facility] Comment on above: Order Comment: Reaso n for Exam Elevated liver enzymes;Fatty liver Performed By: #### C BC, CMP, AMM, ADAL, PT, LIPID #### [facility] [address] Sodium [Moles/Vol] 135 mmol/L Low 136-146 [facility] Comment on above: Order Comment: Reaso n for Exam Elevated liver enzymes;Fatty liver Performed By: #### C BC, CMP, AMM, ADAL, PT, LIPID #### [facility] [address] Urea nitrogen [Mass/Vol] 11 mg/dL Normal 9-23 [facility] Comment on above: Order Comment: Reaso n for Exam Elevated liver enzymes;Fatty liver Performed By: #### C BC, CMP, AMM, ADAL, PT, LIPID #### [facility] [address] Ferritinon 02-20-2022 Ferritin [Mass/Vol] 127.6 ng/mL Normal 11-306.8 [facility] Comment on above: Order Comment: Reaso n for Exam Elevated liver enzymes;Fatty liver Performed By: #### C BC, CMP, AMM, ADAL, PT, LIPID #### [facility] [address] [place] [id number] [facility] Lipid Panelon 02-20-2022 Cholesterol [Mass/Vol] 226 mg/dL High 140-200 [facility] Comment on above: Order Comment: Reaso n for Exam Elevated liver enzymes;Fatty liver Result Comment: Chol less than 200 mg/dl low risk Chol 201-239 mg/dl borderline risk Chol 240 mg/dl and greater high risk Performed By: #### C BC, CMP, AMM, ADAL, PT, LIPID #### [facility] [address] [place] [id number] [facility] Cholesterol in HDL [Mass/Vol] 50 mg/dL Normal 35-85 [facility] Comment on above: Order Comment: Reaso n for Exam Elevated liver enzymes;Fatty liver Result Comment: HDL CHOL ATP-III CLASSIFICATION Cardiovascular Risk HDL > or equal to 60 mg/dL LOW HDL < 40 mg/dL HIGH Performed By: #### C BC, CMP, AMM, ADAL, PT, LIPID #### [facility] [address] Cholesterol.total/C holesterol in HDL [Mass ratio] 4.5 {ratio} Normal <5.0 [facility] Comment on above: Order Comment: Reaso n for Exam Elevated liver enzymes;Fatty liver Result Comment: PERF ORMED BY: [place] [address] PATHOLOGIST JOINT CUTTER DAGMAR CANO M.D. Performed By: #### C BC, CMP, AMM, ADAL, PT, LIPID #### [address] LDL Cholesterol,Calcula john paul 138 mg/dL High 0-100 [facility] Comment on above: Order Comment: Reaso n for Exam Elevated liver enzymes;Fatty liver Result Comment: LDL ATP III CLASSIFICATION LDL less than 100 mg/dL Optimal LDL 100-129 mg/dL Near or above optimal LDL 130-159 mg/dL Borderline high LDL 160-189 mg/dL High LDL greater than 189 mg/dL Very high Performed By: #### C BC, CMP, AMM, ADAL, PT, LIPID #### [address] Triglyceride w/Reflex 188 mg/dL High 35-149 [facility] Comment on above: Order Comment: Reaso n for Exam Elevated liver enzymes;Fatty liver Result Comment: TRIG ATP III CLASSIFICATION TRIG less than 150 mg/dL Normal TRIG 150-199 mg/dL Borderline high TRIG 200-500 mg/dL High TRIG greater than 500 mg/dL Very high Standard traceable to the Center for Disease Conrtrol and Prevention (CDC) test method. Performed By: #### C BC, CMP, AMM, ADAL, PT, LIPID #### [facility] [address] VLDL CHOLESTEROL 37 mg/dL Normal [facility] Comment on above: Order Comment: Reaso n for Exam Elevated liver enzymes;Fatty liver Performed By: #### C BC, CMP, AMM, ADAL, PT, LIPID #### [facility] [address] Prothrombin Time INRon 02-20 INR Coag (PPP) [Relative time] 1.1 {INR} Normal [facility] Comment on above: Order Comment: Reaso n for Exam Elevated liver enzymes;Fatty liver Result Comment: INR Therapeutic Range A) Pre- and Peroperative OAT started two weeks before surgery. NOT HIP SURGERY: 1.5 - 2.5 HIP SURGERY: 2 - 3 B) Primary and secondary prevention of venous THROMBOSIS: 2 - 3 C) Active venous thrombosis, pulmonary embolism and prevention of recurrent venous thrombosis: 2 - 3 D) Prevention of arterial thromboembolism including patients with mechanical heart valves: 3 - 4.5 PERFORMED BY: [place] [address] PATHOLOGIST JOINT CUTTER DAGMAR CANO M.D. Performed By: #### C BC, CMP, AMM, ADAL, PT, LIPID #### [facility] [address] [place] [address] PT Coag (PPP) [Time] 12.1 s Normal 9.0-12.9 [facility] Comment on above: Order Comment: Reaso n for Exam Elevated liver enzymes;Fatty liver Performed By: #### C BC, CMP, AMM, ADAL, PT, LIPID #### [facility] [address] [place] [address] MG MAMM SCREEN 3D RONEN CADon 11-05-2021 MG MAMM SCREEN 3D RONEN CAD Patient: NAIMA RIOS Exam Date: 11/05/2021 : 1970 Gender:F Ordering : DR OSCAR NAVARRO . Admission #: [id number] Family : Order #: [id number] CLICK HERE TO VIEW EXAM RADIOLOGY REPORT PROCEDURE: MAMMOGRAM SCREENING 3D BILATERAL CAD COMPARISON: MG MAMM SCREEN RONEN W CAD, 05/14/2019. MAMMO RONEN SCREEN, 07/12/2020. INDICATIONS: Screening mammography Calculator Name NCI Breast Cancer Risk Assessment Tool 5 Year Breast Cancer Risk 1.60% Lifetime Breast Cancer Risk 14.00% Personal Breast Cancer No Personal Ovarian Cancer No Treatments None Family Cancers None LOCATION: [facility] BREAST COMPOSITION: Scattered areas fibroglandular density. FINDINGS: DIAGNOSTIC CATEGORY 2--BENIGN FINDING. NO CHANGE FROM COMPARISON. Scattered benign-appearing calcifications are present. Scattered benign-appearing lymph nodes are present. RIGHT BREAST: No significant suspicious finding. LEFT BREAST: No significant suspicious finding. RECOMMENDATIONS: ROUTINE MAMMOGRAM AND CLINICAL EVALUATION IN 12 MONTHS. PLEASE NOTE: A NORMAL MAMMOGRAM DOES NOT EXCLUDE THE POSSIBILITY OF BREAST CANCER. A CLINICALLY SUSPICIOUS PALPABLE LUMP SHOULD BE BIOPSIED. Dictated by: Montrell Romeo MD on 11/05/2021 at 10:40 Approved by: Montrell Romeo MD on 11/05/2021 at 10:43 Normal [facility] PAP ACOG PANEL 2: 30 to 65on 11-05-2021 . . Normal [facility] Comment on above: Result Comment: Perf ormed at: WB Performed By: #### [id number] #### [facility] [address] [place] [address] Dr. Peg Shelby Age Gdln ACOG Testing 30-65 Normal [facility] Comment on above: Performed By: #### [id number] #### [facility] [address] [place] [address] [address] Peg Shelby DIAGNOSIS: Comment Normal [facility] Comment on above: Result Comment: NEGA TIVE FOR INTRAEPITHELIAL LESION OR MALIGNANCY. Performed at: WB Performed By: #### [id number] #### [facility] [address] [place] [address] Dr. Peg Shelby HPV Aptima Negative Normal Negative [facility] Comment on above: Result Comment: This nucleic acid amplification test detects fourteen high-risk HPV types (16,18,31,33,35,39,45,51,52,56,58,59,66,68) without differentiation. Performed at: =G Performed By: #### [id number] #### [facility] [address] [place] [address] Dr. Peg Shelby Methodology: Comment Normal [facility] Comment on above: Result Comment: This liquid based ThinPrep(R) pap test was screened with the use of an image guided system. Performed at: WB Performed By: #### [id number] #### [facility] [address] [place] [address] Dr. Peg Shelby Note: Comment Normal [facility] Comment on above: Result Comment: The Pap smear is a screening test designed to aid in the detection of premalignant and malignant conditions of the uterine cervix. It is not a diagnostic procedure and should not be used as the sole means of detecting cervical cancer. Both false-positive and false-negative reports do occur. . Performed at: WB Performed By: #### [id number] #### [facility] [address] [place] [address] [address] Peg Shelby Performed by: Comment Normal [facility] Comment on above: Result Comment: Janey Gonzalez, Earth Moving Machine Operator (ASCP) Performed at: WB Performed By: #### [id number] #### [facility] [address] [place] [address] Dr. Peg Shelby Specimen adequacy: Comment Normal [facility] Comment on above: Result Comment: Sati sfactory for evaluation. Endocervical and/or squamous metaplastic cells (endocervical component) are present. Performed at: WB Performed By: #### [id number] #### [facility] [address] [place] [address] Dr. Peg Shelby VAGINITIS/VAGINOSIS DNA PROB Saul 11-02-2021 Sandhya species Negative Normal Negative [facility] Comment on above: Performed By: #### V AGINT #### [facility] [address] [place] [address] Dr. Peg Shelby Gardnerella vaginalis Positive Abnormal Negative [facility] Comment on above: Performed By: #### V AGINT #### [facility] [address] [place] [address] Dr. Peg Shelby Trichomonas vaginalis Negative Normal Negative [facility] Comment on above: Performed By: #### V AGINT #### [facility] [address] [place] [address] Dr. Peg Shelby US SINGLE QUAD RT UPPERon US SINGLE QUAD RT UPPER EXAM: Ultrasound of the right upper quadrant HISTORY: Essential hypertension. Abnormal lab values. COMPARISON: None. TECHNIQUE: Grayscale and color imaging was performed FINDINGS: The pancreas appears normal. Scanning of the liver demonstrates mild increased echogenicity of liver. The liver is prominent in size measuring 18 cm. Color-flow is noted in the portal and hepatic veins. Common bile duct measures 3 mm. Right kidney measures 11.5 x 5.5 x 4.8 cm. No solid renal cortical masses or hydronephrosis is noted. The gallbladder is absent. No fluid is noted in the right upper quadrant. IMPRESSION: 1 liver is prominent in size measuring 18 cm. There is diffuse increased echogenicity of liver consistent with fatty infiltration of the liver. 2. Absent gallbladder. 3. The remainder the right upper quadrant was unremarkable. Electronically authenticated by: MONTRELL UW Date: 2021-10-16 07:39 Normal [facility] LIPID PROFILEon 10-11-2021 CHOL-HDL RATIO NORM SEE BELOW Normal [facility] Comment on above: Result Comment: 3.3 - 4.4 LOW RISK 4.4 - 7.1 AVERAGE RISK 7.1 - 11.0 MODERATE RISK >11.0 HIGH RISK Performed By: #### L IPID, CMP #### [facility] [address] [place] [address] Dr. Peg Shelby Cholesterol [Mass/Vol] 235 mg/dL Critically high <=200 [facility] Comment on above: Performed By: #### L IPID, CMP #### [facility] [address] [place] [address] [address] Peg Shelby Cholesterol in HDL [Mass/Vol] 42 mg/dL Normal 40-60 [facility] Comment on above: Performed By: #### L IPID, CMP #### [facility] [address] [place] [address] [address] Peg Shelby Cholesterol in LDL [Mass/Vol] 139.8 mg/dL Normal [facility] Comment on above: Performed By: #### L IPID, CMP #### [facility] [address] [place] [address] [address] Peg Shelby Cholesterol.total/C holesterol in HDL [Mass ratio] 5.6 {ratio} Normal [facility] Comment on above: Performed By: #### L IPID, CMP #### [facility] [address] [place] [address] [address] Peg Shelby HDL NORMAL > or = 60 mg/dl - LO W CARDIOVASCULAR RISK <40 mg/dl - HIGH CARDIOVASCULAR RISK Normal [facility] Comment on above: Performed By: #### L IPID, CMP #### [facility] [address] [place] [address] [address] Peg Shelby LDL CALC NORMAL SEE BELOW Normal [facility] Comment on above: Result Comment: <100 mg/dl OPTIMAL 100 - 129 mg/dl NEAR OR ABOVE OPTIMAL 130 - 159 mg/dl BORDERLINE HIGH 160 - 189 mg/dl HIGH >190 mg/dl VERY HIGH Performed By: #### L IPID, CMP #### [facility] [address] [place] [address] Dr. Peg Shelby Triglyceride [Mass/Vol] 266 mg/dL Critically high <=150 [facility] Comment on above: Performed By: #### L IPID, CMP #### [facility] [address] [place] [address] Dr. Peg Shelby VLDL CALC 53.2 mg/dL Normal [facility] Comment on above: Performed By: #### L IPID, CMP #### [facility] [address] [place] [address] Dr. Peg Shelby PROF 14(COMP METB)on 022 Albumin [Mass/Vol] 3.9 g/dL Normal 3.4-5.0 [facility] Comment on above: Performed By: #### L IPID, CMP #### [facility] [address] [place] [address] Dr. Peg Shelby Albumin/Globulin [Mass ratio] 1.1 {ratio} Normal [facility] Comment on above: Performed By: #### L IPID, CMP #### [facility] [address] [place] [address] Dr. Peg Shelby ALP [Catalytic activity/Vol] 90 U/L Normal 46-116 [facility] Comment on above: Performed By: #### L IPID, CMP #### [facility] [address] [place] [address] Dr. Peg Shelby ALT [Catalytic activity/Vol] 131 U/L Critically high 14-59 [facility] Comment on above: Performed By: #### L IPID, CMP #### [facility] [address] [place] [address] Dr. Peg Shelby Anion gap [Moles/Vol] 10.7 mmol/L Normal [facility] Comment on above: Performed By: #### L IPID, CMP #### [facility] [address] [place] [address] Dr. Peg Shelby AST [Catalytic activity/Vol] 78 U/L Critically high 15-37 [facility] Comment on above: Performed By: #### L IPID, CMP #### [facility] [address] [place] [address] Dr. Peg Shelby Bilirubin [Mass/Vol] 0.5 mg/dL Normal 0.2-1.0 [facility] Comment on above: Performed By: #### L IPID, CMP #### [facility] [address] [place] [address] Dr. Peg Shelby Calcium [Mass/Vol] 8.6 mg/dL Normal 8.5-10.1 [facility] Comment on above: Performed By: #### L IPID, CMP #### [facility] [address] [place] [address] Dr. Peg Shelby Chloride [Moles/Vol] 104 mmol/L Normal 98-107 [facility] Comment on above: Performed By: #### L IPID, CMP #### [facility] [address] [place] [address] Dr. Peg Shelby CO2 [Moles/Vol] 29.5 mmol/L Normal 21.0-32.0 [facility] Comment on above: Performed By: #### L IPID, CMP #### [facility] [address] [place] [address] Dr. Peg Shelby Creatinine [Mass/Vol] 0.83 mg/dL Normal 0.55-1.02 [facility] Comment on above: Performed By: #### L IPID, CMP #### [facility] [address] [address] [address] Peg Shelby EGFR-AF BANGLADESHI >60 Normal >=60 [facility] Comment on above: Performed By: #### L IPID, CMP #### [facility] [address] [address] [address] Peg Shelby EGFR-NON AF BANGLADESHI >60 Normal >=60 [facility] Comment on above: Performed By: #### L IPID, CMP #### [facility] [address] [address] [address] Peg Shelby Globulin (S) [Mass/Vol] 3.4 g/dL Normal [facility] Comment on above: Performed By: #### L IPID, CMP #### [facility] [address] [place] [address] Dr. Peg Shelby Glucose [Mass/Vol] 108 mg/dL Critically high 74-106 [facility] Comment on above: Performed By: #### L IPID, CMP #### [facility] [address] [address] [address] Peg Shelby Potassium [Moles/Vol] 4.2 mmol/L Normal 3.5-5.1 [facility] Comment on above: Performed By: #### L IPID, CMP #### [facility] [address] [place] [address] Dr. Peg Shelby Protein [Mass/Vol] 7.3 g/dL Normal 6.4-8.2 [facility] Comment on above: Performed By: #### L IPID, CMP #### [facility] [address] [place] [address] Dr. Peg Shelby Sodium [Moles/Vol] 140 mmol/L Normal 136-145 [facility] Comment on above: Performed By: #### L IPID, CMP #### [facility] [address] [place] [address] Dr. Peg Shelby Urea nitrogen [Mass/Vol] 14.0 mg/dL Normal 7.0-18.0 [facility] Comment on above: Performed By: #### L IPID, CMP #### [facility] [address] [address] [address] Peg Shelby Urea nitrogen/Creatinine [Mass ratio] 16.9 mg/mg Normal [facility] Comment on above: Performed By: #### L IPID, CMP #### [facility] [address] [address] [address] Peg Shelby LIPID PROFILEon 03-20-2021 CHOL-HDL RATIO NORM SEE BELOW Normal [facility] Comment on above: Result Comment: 3.3 - 4.4 LOW RISK 4.4 - 7.1 AVERAGE RISK 7.1 - 11.0 MODERATE RISK >11.0 HIGH RISK Performed By: #### C MP, LIPID #### [facility] [address] [address] [address] Peg Shelby Cholesterol [Mass/Vol] 245 mg/dL Critically high <=200 [facility] Comment on above: Performed By: #### C MP, LIPID #### [facility] [address] [address] [address] Peg Shelby Cholesterol in HDL [Mass/Vol] 42 mg/dL Normal [facility] Comment on above: Performed By: #### C MP, LIPID #### [facility] [address] [address] [address] Peg Shelby Cholesterol in LDL [Mass/Vol] 144.8 mg/dL Normal [facility] Comment on above: Performed By: #### C MP, LIPID #### [facility] [address] [address] [address] Peg Shelby Cholesterol.total/C holesterol in HDL [Mass ratio] 5.8 {ratio} Normal [facility] Comment on above: Performed By: #### C MP, LIPID #### [facility] [address] [address] [address] Peg Shelby HDL NORMAL > or = 60 mg/dl - LO W CARDIOVASCULAR RISK <40 mg/dl - HIGH CARDIOVASCULAR RISK Normal [facility] Comment on above: Performed By: #### C MP, LIPID #### [facility] [address] [address] [address] Peg Shelby LDL CALC NORMAL SEE BELOW Normal [facility] Comment on above: Result Comment: <100 mg/dl OPTIMAL 100 - 129 mg/dl NEAR OR ABOVE OPTIMAL 130 - 159 mg/dl BORDERLINE HIGH 160 - 189 mg/dl HIGH >190 mg/dl VERY HIGH Performed By: #### C MP, LIPID #### [facility] [address] [place] [address] Dr. Peg Shelby Triglyceride [Mass/Vol] 291 mg/dL Critically high <=150 [facility] Comment on above: Performed By: #### C MP, LIPID #### [facility] [address] [place] [address] Dr. Peg Shelby VLDL CALC 58.2 mg/dL Normal [facility] Comment on above: Performed By: #### C MP, LIPID #### [facility] [address] [place] [address] Dr. Peg Shelby PROF 14(COMP METB)on 021 Albumin [Mass/Vol] 4.0 g/dL Normal 3.5-5.0 [facility] Comment on above: Performed By: #### C MP, LIPID #### [facility] [address] [place] [address] Dr. Peg Shelby Albumin/Globulin [Mass ratio] 1.1 {ratio} Normal [facility] Comment on above: Performed By: #### C MP, LIPID #### [facility] [address] [place] [address] Dr. Peg Shelby ALP [Catalytic activity/Vol] 88 U/L Normal 38-126 [facility] Comment on above: Performed By: #### C MP, LIPID #### [facility] [address] [place] [address] Dr. Peg Shelby ALT [Catalytic activity/Vol] 112 U/L Critically high 9-52 [facility] Comment on above: Performed By: #### C MP, LIPID #### [facility] [address] [place] [address] Dr. Peg Shelby Anion gap [Moles/Vol] 12.5 mmol/L Normal [facility] Comment on above: Performed By: #### C MP, LIPID #### [facility] [address] [address] [address] Peg Shelby AST [Catalytic activity/Vol] 52 U/L Critically high 14-36 [facility] Comment on above: Performed By: #### C MP, LIPID #### [facility] [address] [place] [address] Dr. Peg Shelby Bilirubin [Mass/Vol] 0.5 mg/dL Normal 0.2-1.3 [facility] Comment on above: Performed By: #### C MP, LIPID #### [facility] [address] [place] [address] Dr. Peg Shelby Calcium [Mass/Vol] 8.9 mg/dL Normal 8.4-10.2 [facility] Comment on above: Performed By: #### C MP, LIPID #### [facility] [address] [place] [address] Dr. Peg Shelby Chloride [Moles/Vol] 104 mmol/L Normal 98-107 [facility] Comment on above: Performed By: #### C MP, LIPID #### [facility] [address] [place] [address] Dr. Peg Shelby CO2 [Moles/Vol] 30.5 mmol/L Critically high 22.0-30.0 [facility] Comment on above: Performed By: #### C MP, LIPID #### [facility] [address] [place] [address] Dr. Peg Shelby Creatinine [Mass/Vol] 0.82 mg/dL Normal 0.52-1.04 [facility] Comment on above: Performed By: #### C MP, LIPID #### [facility] [address] [place] [address] Dr. Peg Shelby EGFR-AF BANGLADESHI >60 Normal >=60 [facility] Comment on above: Performed By: #### C MP, LIPID #### [facility] [address] [place] [address] Dr. Peg Shelby EGFR-NON AF BANGLADESHI >60 Normal >=60 [facility] Comment on above: Performed By: #### C MP, LIPID #### [facility] [address] [place] [address] Dr. Peg Shelby Globulin (S) [Mass/Vol] 3.7 g/dL Normal [facility] Comment on above: Performed By: #### C MP, LIPID #### [facility] [address] [place] [address] Dr. Peg Shelby Glucose [Mass/Vol] 118 mg/dL Critically high 74-106 [facility] Comment on above: Performed By: #### C MP, LIPID #### [facility] [address] [place] [address] Dr. Peg Shelby Potassium [Moles/Vol] 4.0 mmol/L Normal 3.4-5.0 [facility] Comment on above: Performed By: #### C MP, LIPID #### [facility] [address] [place] [address] Dr. Peg Shelby Protein [Mass/Vol] 7.7 g/dL Normal 6.1-8.2 [facility] Comment on above: Performed By: #### C MP, LIPID #### [facility] [address] [place] [address] Dr. Peg Shelby Sodium [Moles/Vol] 143 mmol/L Normal 137-145 [facility] Comment on above: Performed By: #### C MP, LIPID #### [facility] [address] [place] [address] Dr. Peg Shelby Urea nitrogen [Mass/Vol] 13.0 mg/dL Normal 7.0-17.0 [facility] Comment on above: Performed By: #### C MP, LIPID #### [facility] [address] [place] [address] Dr. Peg Shelby Urea nitrogen/Creatinine [Mass ratio] 15.9 mg/mg Normal [facility] Comment on above: Performed By: #### C MP, LIPID #### [facility] [address] [place] [address] Dr. Peg Shelby 2019 Novel Coronavirus (CoVI D-19), LUCINDA LCon 12-23-2019 SARS-CoV-2, LUCINDA (COVID-19) LC Detected Abnormal Not Detected [facility] Comment on above: Order Comment: [id number] Results Called To July at Dr. Alba's By JOSUE And Read Back For Confirmation On 12/23/2019 11:38:22 EDT. Result Comment: This test was developed and its performance characteristics determined by [employer]. This test has not been FDA cleared or approved. This test has been authorized by FDA under an Emergency Use Authorization (EUA). This test is only authorized for the duration of time the declaration that circumstances exist justifying the authorization of the emergency use of in vitro diagnostic tests for detection of SARS-CoV-2 virus and/or diagnosis of COVID-19 infection under section 564(b)(1) of the Act, 21 U.S.C. 360bbb-3(b)(1), unless the authorization is terminated or revoked sooner. When diagnostic testing is negative, the possibility of a false negative result should be considered in the context of a patient's recent exposures and the presence of clinical signs and symptoms consistent with COVID-19. An individual without symptoms of COVID-19 and who is not shedding SARS-CoV-2 virus would expect to have a negative (not detected) result in this assay. Performed At: [facility] [address] [place] [address] [place] [id number] Kenna Bach MD Ph:[phone] Performed By: #### [id number] #### [facility] (DEFAULT) [address] [place] [address] Coding Summaryon 12-22-2019 Coding Summary CODING DATE: 12/22/2019 [facility] STATUS: Home PAYOR: Commercial Insurance ADMIT DX: REASON FOR VISIT DX: G44.83 Primary cough headache R43.0 Anosmia R43.2 [employer] FINAL DX: PRINCIPAL: G44.83 Primary cough headache SECONDARY: R43.0 Anosmia R43.2 Par[employer]ia R50.9 Fever, unspecified PYMT PROC APC STAT DESCRIPTION DOCTOR NAME DATE NOTE: The code number assigned matches the documented diagnosis and / or procedure in the patient's chart. However, the narrative phrase printed from the coding software may appear abbreviated, or result in slightly different terminology. Coded By: Sheryl Lovett Date Saved: 12/22/2019 01:57 pm Normal [facility] Consent Formson 12-22-2019 Consent Forms [id number] [facility] Vital Signs Date Time Vital Sign Value Performing Clinician Facility 03-29-2024 11:40-0500 Body mass index (BMI) [Ratio] 36.34 kg/m2 Janey RILEY Work Phone: [facility] 03-29-2024 11:40-0500 Body weight 93.04 kg Janey Savage PA Work Phone: [facility] 03-29-2024 11:40-0500 Diastolic blood pressure 90 mm[Hg] Janey Savage PA Work Phone: [facility] 03-29-2024 11:40-0500 Systolic blood pressure 138 mm[Hg] Janey Savage PA Work Phone: [facility] 03-11-2024 14:26-0500 Body height 160 cm Enrique Alba MD Work Phone: [facility] 03-11-2024 14:26-0500 Body mass index (BMI) [Ratio] 49.6 kg/m2 Enrique Alba MD Work Phone: [facility] 03-11-2024 14:26-0500 Body weight 127.01 kg Enrique Alba MD Work Phone: [facility] 02-25-2024 15:35-0400 Body height 160 cm Enrique Alba MD Work Phone: [facility] 02-25-2024 15:35-0400 Body mass index (BMI) [Ratio] 49.6 kg/m2 Enrique Alba MD Work Phone: [facility] 02-25-2024 15:35-0400 Body weight 127.01 kg Enrique Alba MD Work Phone: [facility] 02-25-2024 15:35-0400 Diastolic blood pressure 78 mm[Hg] Enrique Alba MD Work Phone: [facility] 02-25-2024 15:35-0400 Heart rate 97 /min Enrique Alba MD Work Phone: [facility] 02-25-2024 15:35-0400 SaO2% (BldA) [Mass fraction] 99 % Enrique Alba MD Work Phone: [facility] 02-25-2024 15:35-0400 Systolic blood pressure 132 mm[Hg] Enrique Alba MD Work Phone: [facility] 12-05-2022 14:03-0400 Body height [address] Work Phone: [facility] 12-05-2022 14:03-0400 Body weight 117.[address] Work Phone: [facility] 10-30-2022 13:20-0400 Body height 160 cm Radha Rios MD Work Phone: [facility] 10-30-2022 13:20-0400 Body weight 120.2 kg Radha Rios MD Work Phone: [facility] 08-01-2022 14:50-0400 Diastolic blood pressure 81 mm[Hg] Mariajose Asher MD Work Phone: [facility] 08-01-2022 14:50-0400 Heart rate 101 /min Mariajose Asher MD Work Phone: [facility] 08-01-2022 14:50-0400 Systolic blood pressure 177 mm[Hg] Mariajose Asher MD Work Phone: [facility] 05-07-2022 14:00-0500 Body height 160.02 cm Ernie Fuller Other [facility] Other 05-07-2022 14:00-0500 Body mass index (BMI) [Ratio] 46.05 kg/m2 Ernie Fuller Other [facility] Other 05-07-2022 14:00-0500 Body weight 117.94 kg Ernie Fuller Other [facility] Other 05-07-2022 14:00-0500 Diastolic blood pressure 109 mm[Hg] Ernie Fuller Other [facility] Other 05-07-2022 14:00-0500 Systolic blood pressure 172 mm[Hg] Ernie Fuller Other [facility] Other 01-30-2022 10:45-0400 Body height 160.02 cm Ernie Fuller Other [facility] Other 01-30-2022 10:45-0400 Body mass index (BMI) [Ratio] 47.29 kg/m2 Ernie Fuller Other [facility] Other 01-30-2022 10:45-0400 Body weight 121.11 kg Ernie Fuller Other [facility] Other Encounters Encounter Date Encounter Type Care Provider Facility Start: 03-29-2024 End: 03-29-2024 Bamboo flowsheet Janey RILEY Work Phone: [facility] Start: 03-29-2024 End: 03-29-2024 Bamboo flowsheet Janey RILEY Work Phone: [facility] Start: 03-29-2024 End: 03-29-2024 Patient encounter procedure Janey RILEY Work Phone: [facility] Work Phone: Start: 03-29-2024 End: 03-29-2024 Periodic preventive med est patient 40-64yrs Janey RILEY Work Phone: [facility] Comment on above: Well woman exam with routine gynecological exam; Yeast infection of the skin Start: 03-13-2024 End: 03-15-2024 Refnedra Alba MD Work Phone: [facility] Comment on above: Mixed dyslipidemia ( CMS/HCC) Start: 03-12-2024 End: 03-13-2024 Refill Enrique Alba MD Work Phone: [facility] Comment on above: Mixed dyslipidemia ( CMS/HCC) Start: 03-11-2024 End: 03-11-2024 Office outpatient visit 25 minutes Enrique Alba MD Work Phone: [facility] Comment on above: Pre-diabetes (Primar y Dx); Restless leg syndrome; Mixed dyslipidemia (CMS/HCC) Start: 03-11-2024 End: 03-11-2024 ambulatory ENRIQUE ALBA Not Available Start: 03-11-2024 End: 03-11-2024 Bamboo flowsheet Enrique Alba MD Work Phone: [facility] Start: 03-11-2024 End: 03-11-2024 Bamboo flowsheet Enrique Alba MD Work Phone: [facility] Start: 03-05-2024 End: 03-05-2024 Clinisync Result Encounter Enrique Alba MD Work Phone: [facility] Unsolicited Start: 03-05-2024 End: 03-05-2024 Clinisync Result Encounter Enrique Alba MD Work Phone: [facility] Unsolicited Start: 02-25-2024 End: 02-25-2024 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 Enrique Alba MD Work Phone: [facility] Work Phone: Start: 02-25-2024 End: 02-25-2024 Periodic preventive med est patient 40-64yrs Enrique Alba MD Work Phone: [facility] Comment on above: Encounter for wellne ss examination in adult (Primary Dx); Advance directive discussed with patient; Morbid obesity (CMS/HCC); Adult BMI 45.0-49.9 kg/sq m (CMS/HCC); Glucose intolerance (impaired glucose tolerance); Mixed hyperlipidemia (CMS/HCC); Primary hypertension (CMS/HCC); Menopausal and female climacteric states; Osteoporosis screening; Encounter for follow-up examination after completed treatment for conditions other than malignant neoplasm; Screening mammogram for breast cancer Start: 02-25-2024 End: 02-26-2024 ambulatory ENRIQUE ALBA Not Available Start: 02-25-2024 End: 02-25-2024 Bamboo flowsoral Alba MD Work Phone: [facility] Start: 02-25-2024 End: 02-25-2024 Bamboo flowsoral Alba MD Work Phone: [facility] Start: 12-16-2023 End: 12-16-2023 ambulatory ENRIQUE ALBA Not Available Start: 07-14-2023 End: 07-14-2023 ambulatory ENRIQUE ALBA Not Available Start: 05-14-2023 End: 05-14-2023 ambulatory ENRIQUE ALBA Not Available Start: 04-08-2023 End: 04-08-2023 ambulatory SERENA HARRIS Not Available Start: 04-04-2023 End: 04-04-2023 ambulatory ASTRID LORENZANA Not Available Start: 04-02-2023 End: 04-02-2023 ambulatory ASTRID VERDUZCOY Not Available Start: 03-28-2023 End: 03-28-2023 ambulatory SERENA HARRIS Not Available Start: 03-27-2023 End: 03-27-2023 ambulatory ENRIQUE ALBA Not Available Start: 03-25-2023 End: 03-25-2023 ambulatory NGHIA VENTURA Not Available Start: 12-05-2022 End: 12-05-[address] Work Phone: [facility] Therapy Comment on above: Fatty liver Start: 12-05-2022 End: 12-05-2022 Telemedicine consultation with patient Taylor Gee RD Work Phone: [facility] Start: 10-30-2022 End: 10-30-2022 ambulatory RADHA RIOS Facility:[facility] Start: 10-30-2022 End: 10-30-2022 Patient encounter procedure Radha Rios MD Work Phone: Gastroenterology Comment on above: Fatty liver (Primary Dx); Class 3 severe obesity due to excess calories in adult, unspecified BMI, unspecified whether serious comorbidity present (HCC) Start: 08-01-2022 End: 08-01-2022 ambulatory MARIAJOSE ASHER Facility:[facility] Start: 08-01-2022 End: 08-01-2022 Patient encounter procedure Mariajose Asher MD Work Phone: Rheumatology Comment on above: 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); Primary osteoarthritis involving multiple joints; NSAID long-term use Start: 06-17-2022 End: 06-17-2022 ambulatory Ben Li Other [facility] Other Start: 06-17-2022 Telephone encounter Ben Henry [employer] Start: 05-07-2022 End: 05-07-2022 ambulatory Ernie Fuller Other [facility] Other Start: 05-07-2022 Office outpatient vi sit 25 minutes Ernie Fuller [facility] Start: 02-20-2022 End: 02-20-2022 ambulatory Enrique Alba Facility:[facility] Start: 01-30-2022 End: 01-30-2022 ambulatory Ernie Fuller Other [facility] Other Start: 01-30-2022 Office outpatient ne w 45 minutes Ernie Fluler [facility] Start: 11-05-2021 End: 11-06-[address] OSCAR NAVARRO Facility:[facility] Start: 11-01-2021 End: 11-01-[address] ENRIQUE ALBA Facility:[facility] Start: 10-16-2021 End: 10-17-[address] ENRIQUE ALBA Facility:[facility] Start: 10-11-2021 End: 10-12-[address] ENRIQUE ALBA Facility:[facility] Start: 03-20-2021 End: 03-21-[address] ENRIQUE ALBA Facility:[facility] Procedures Date Procedure Procedure Detail Performing Clinician Start: 03-05-2024 ALL LIPID PROFILE (FASTING) Enrique Alba MD Work Phone: Start: 03-05-2024 [facility] CMP (CMP) (FOR REMOTE [facility] USE) Enrique Alba MD Work Phone: Start: 03-05-2024 Mammography Enrique Alba MD Work Phone: Start: 11-01-2022 Microscopic observation [Identifier] in Cervix by Cyto stain Janey RILEY Work Phone: Start: 09-17-2022 History of operative procedure on knee Status post bilateral knee replacements Enrique Alba MD Work Phone: Start: 11-05-2021 Mammography Enrique Alba MD Work Phone: Start: 07-12-2020 Mammography Taylor Gerard MORGAN Work Phone: Plan of Treatment Date Care Activity Detail Author Start: 09-18-2026 Screening for malign ant neoplasm of colon [facility] Start: 11-01-2025 Screening for malign ant neoplasm of cervix [facility] Start: 04-04-2025 End: 04-04-2025 Patient encounter procedure 04/04/2025 3:00 PM EST Office Visit [facility] [address] [place] [address] Janey Savage PA [address] [address] [facility] Start: 03-05-2025 Screening for malign ant neoplasm of breast Mammogram [facility] Start: 03-29-2024 End: 03-29-2024 Patient encounter procedure [facility] Comment on above: Arrived Start: 03-18-2024 Screening for malign ant neoplasm of cervix [facility] Start: 02-26-2024 End: 02-25-2025 Comprehensive metabolic 2000 panel - Serum or Plasma Comprehensive metabolic panel Lab Routine Glucose intolerance (impaired glucose tolerance) Primary hypertension (CMS/HCC) Expected: 02/26/2024 (Approximate), Expires: 02/25/2025 [facility] Work Phone: Comment on above: Expected: 02/26/2024 (Approximate), Expires: 02/25/2025 Start: 02-26-2024 End: 04-27-2025 DBT Breast - bilateral screening Bilateral screening mammogram with tomosynthesis Imaging Routine Screening mammogram for breast cancer Expected: 02/26/2024 (Approximate), Expires: 04/27/2025 [facility] Comment on above: Expected: 02/26/2024 (Approximate), Expires: 04/27/2025 Start: 02-26-2024 End: 02-25-2025 DXA Skeletal system Views for bone density DEXA bone density Imaging Routine Menopausal and female climacteric states Osteoporosis screening Encounter for follow-up examination after completed treatment for conditions other than malignant neoplasm Expected: 02/26/2024 (Approximate), Expires: 02/25/2025 [facility] Comment on above: Expected: 02/26/2024 (Approximate), Expires: 02/25/2025 Start: 02-26-2024 End: 02-25-2025 Lipid 1996 panel - Serum or Plasma Lipid panel Lab Routine Mixed hyperlipidemia (CMS/HCC) Expected: 02/26/2024 (Approximate), Expires: 02/25/2025 [facility] Comment on above: Expected: 02/26/2024 (Approximate), Expires: 02/25/2025 Start: 02-25-2024 End: 02-25-2024 Patient encounter procedure 02/25/2024 3:30 PM EDT Office Visit [facility] [address] [facility] [address] [place] [id number] Enrique Alba MD [address] [facility] 100 [place] [address] (Fax) Encounter for wellness examination in adult; Advance directive discussed with patient; Morbid obesity (CMS/HCC); Adult BMI 45.0-49.9 kg/sq m (CMS/HCC) [facility] Comment on above: Encounter for wellne ss examination in adult; Advance directive discussed with patient; Morbid obesity (CMS/HCC); Adult BMI 45.0-49.9 kg/sq m (CMS/HCC) Start: 12-27-2022 Influenza vaccination INFLUENZA (#1) [facility] Start: 11-05-2022 Screening for malign ant neoplasm of breast Mammogram [facility] Start: 10-30-2022 End: 12-30-2022 CELIAC SCREEN WITH REFLEX CELIAC SCREEN WITH REFLEX Lab Routine Fatty liver Expected: 10/30/2022, Expires: 12/30/2022 [facility] Work Phone: Comment on above: Expected: 10/30/2022 , Expires: 12/30/2022 Start: 10-30-2022 End: 12-30-2022 Comprehensive metabolic 2000 panel - Serum or Plasma COMP METABOLIC PANEL Lab Routine Fatty liver Expected: 10/30/2022, Expires: 12/30/2022 [facility] Work Phone: Comment on above: Expected: 10/30/2022 , Expires: 12/30/2022 Start: 10-30-2022 End: 12-30-2022 HEPATITIS A ANTIBODY, IGG HEPATITIS A ANTIBODY, IGG Lab Routine Fatty liver Expected: 10/30/2022, Expires: 12/30/2022 [facility] Work Phone: Comment on above: Expected: 10/30/2022 , Expires: 12/30/2022 Start: 04-28-2022 DEPRESSION ASSESSMENT DEPRESSION ASS ESSMENT [facility] Start: 07-12-2021 Mammography MAMMOGRAM [facility] Start: 2020 SHINGRIX VACCINE (1 of 2) SHINGRIX VACCINE (1 of 2) [facility] Start: 03-31-2016 DIABETES SCREEN DIABETES SCREEN [facility] Start: 09-25-2015 COLOGUARD (FIT-DNA) COLOGUARD (FIT-D NA) [facility] Start: 09-25-2015 Colonoscopy COLONOSCOPY [facility] Start: 09-25-2015 COLORECTAL CANCER SCREENING COLORECTAL CANCER SCREENING [facility] Start: 09-25-[address] COLONOGRAPHY [facility] Start: 09-25-2015 FECAL OCCULT BLOOD FECAL OCCULT BLOO D [facility] Start: 09-25-2015 LIPID SCREEN LIPID SCREEN [facility] Start: 09-25-2015 SIGMOIDOSCOPY SIGMOIDOSCOPY [facility] Start: 2010 Mammography MAMMOGRAM [facility] Start: 2000 HPV TESTING HPV TESTING [facility] Start: 09-25-1991 PAP TESTING PAP TESTING [facility] Start: 09-25-1991 Screening for malign ant neoplasm of cervix Pap Smear [facility] Start: 1989 Urine microalbumin profile DTAP,TDAP,TD (1 - Tdap) [facility] Start: 1988 HEPATITIS C SCREENING HEPATITIS C SC REENING [facility] Start: 1988 HIV SCREENING HIV SCREENING [facility] Start: 1970 HEPATITIS B (1 of 3 - 3-dose series) HEPATITIS B (1 of 3 - 3-dose series) [facility] Start: 1970 Screening for malign ant neoplasm of colon [facility] THIN PREP TIS PAP AN D HR HPV DNA THIN PREP TIS PAP AND HR HPV DNA Pathology and Cytology Routine Well woman exam with routine gynecological exam Ordered: 03/29/2024 [facility] Work Phone: Comment on above: Ordered: 03/29/2024 [facility] Immunizations Immunization Date Immunization Notes Care Provider Wilfredo ismmons 01-05-2024 influenza, injectabl e, madin franci canine kidney, preservative free Enrique Alba MD Work Phone: [facility] 01-20-2023 Influenza, injectabl e, Madin Franci Canine Kidney, preservative free, quadrivalent Enrique Alba MD Work Phone: [facility] 01-15-2022 Influenza, injectabl e, Madin Franci Canine Kidney, preservative free, quadrivalent Enrique Alba MD Work Phone: [facility] 01-15-2022 SARS-COV-2 (COVID-19 ) vaccine, mRNA, spike protein, LNP, bivalent, preservative free, 30 mcg/0.3 mL dose, joyce-sucrose formulation Enrique Alba MD Work Phone: [facility] 02-10-2021 zoster vaccine recombinant Enrique Alba MD Work Phone: [facility] 01-27-2021 influenza, injectabl e, quadrivalent, preservative free Enrique Alba MD Work Phone: [facility] 12-02-2020 zoster vaccine recombinant Enrique Alba MD Work Phone: [facility] 02-02-2020 influenza, injectabl e, quadrivalent, preservative free Enrique Alba MD Work Phone: [facility] 02-01-2020 influenza, high dose seasonal, preservative-free Enrique Alba MD Work Phone: [facility] 01-30-2019 influenza, injectabl e, quadrivalent, preservative free Enrique Alba MD Work Phone: [facility] 01-21-2019 Influenza, injectabl e, Madin Nora Canine Kidney, preservative free, quadrivalent Enrique Alba MD Work Phone: [facility] 01-22-2018 Influenza, injectabl e, Madin Nora Canine Kidney, quadrivalent with preservative Enrique Alba MD Work Phone: [facility] 01-21-2018 influenza, injectabl e, quadrivalent, preservative free Enrique Alba MD Work Phone: [facility] 01-28-2017 influenza, injectabl e, quadrivalent, preservative free Enrique Alba MD Work Phone: [facility] 01-18-2017 influenza, seasonal, injectable, preservative free Enrique Alba MD Work Phone: [facility] 03-17-2016 influenza, injectabl e, quadrivalent, preservative free Enrique Alba MD Work Phone: [facility] 02-18-2015 influenza, seasonal, injectable, preservative free Enrique Alba MD Work Phone: [facility] 01-09-2015 influenza, injectabl e, quadrivalent, preservative free Enrique Alba MD Work Phone: [facility] 03-17-2013 influenza virus vacc ine, whole virus Enrique Alba MD Work Phone: [facility] Healthcare Payers Date Payer Category Payer Unknown [id number] 2022 Private Health Insurance [id number] 2022 Unknown [id number] 2.16.8 [id number] 2022 Self-pay 1970 Unknown [id number] 2.16.84 [id number] 1970 Unknown [id number] 2.16.84 [id number] 1970 Unknown [id number] 2.16.84 0.1.007395.3.579.2.593 1970 Unknown [id number] 2.16.84 0.1.381417.3.579.2.593 1970 Unknown [id number] 2.16.84 0.1.497609.3.579.2.593 1970 Unknown [id number] 2.16.84 0.1.559774.3.579.2.1259 1970 Unknown [id number] 2.16.84 0.1.933930.3.579.2.1259 1970 Unknown [id number] 2.16.84 0.1.444377.3.579.2.1259 1970 Unknown [id number] 2.16.84 0.1.930853.3.579.2.1259 1970 Unknown [id number] 2.16.84 0.1.615988.3.579.2.1259 1970 Unknown [id number] 2.16.840 .[id number] 1970 Unknown [id number] 2.16.840 .1.846685.3.579.2.1259 1970 Unknown [id number] 2.16.840 .1.047868.3.579.2.9 1970 Unknown [id number] 2.16.840 .1.873964.3.579.2.9 1970 Unknown [id number] 2.16.840 .1.324200.3.579.2.1258 1970 Unknown [id number] 2.16.840 .[id number] 1959 Unknown [id number] Unknown [id number] 2.16.8 [id number] Social History Date Type Detail Facility Unknown if ever smoked [employer] Other Start: 10-30-2022 End: 12-15-2023 Sex Assigned At [facility] Start: 10-16-2012 End: 09-19-2022 Tobacco smoking status NHIS Never smoked tobacco [facility] Work Phone: Start: 10-16-2012 End: 09-19-2022 Tobacco use and exposure Smokeless tobacco non-user [facility] Work Phone: Start: 11-08-2019 End: 10-30-2022 Alcohol intake Current non-drinker of alcohol (finding) [facility] Start: 1970 Sex Assigned At Not on file [facility] Start: 10-30-2022 End: 12-15-2023 History of Social function [facility] Adult Depression Screening Assessment 2 [facility] Start: 12-16-2023 End: 03-29-2024 Alcoholic beverage intake Lifetime non-drinker (finding) [facility] Within the last year , have you been afraid of your partner or ex-partner? No [facility] Are you now , , , , never or living with a partner? [facility] How often to you hav e a drink containing alcohol? Never [facility] Do you feel stress - tense, restless, nervous, or anxious, or unable to sleep at night because your mind is troubled all the time - these days [OSQ] Very much [facility] (I/We) worried wheth er (my/our) food would run out before (I/we) got money to buy more. Never true [facility] Start: 11-13-2022 Education 21 [facility] Start: 11-13-2022 Alcohol Comment Caffeine intak e: 2-3 cups per day [facility] Medical Equipment Procedure Code Equipment Code Equipment Origin al Text Equipment Identifier Dates Simplex P Bone Cement Radiopaque Full Dose Individual Pack - [id number] Start: 10-27-2012 Simplex P Bone Cement Radiopaque Full Dose Individual Pack - [id number] Start: 03-30-2013 Comp Fem 4 Lt Kn Cr Ivan Trthln - [id number] Start: 10-27-2012 Ins Tib 3 9mm Kn X3 Cr Trthln - [id number] Start: 03-30-2013 Comp Pat 10mm 32 mm Asym Trthln - [id number] Start: 10-27-2012 Comp Pat 10mm 32 mm Asym Trthln - [id number] Start: 03-30-2013 Baseplt Tib Trth ln 4 Prim - [id number] Start: 10-27-2012 Baseplt Tib Trth ln 3 Prim - [id number] Start: 03-30-2013 Clinical Notes 01-30-2022 to 03-29-2024 OSVALDO Wilks - 03/29/2024 11:00 AM Bhumi Alba MD - 03/11/2024 2:30 PM Bhumi Alba MD - 02/25/2024 3:[address] - 12/05/2022 2:02 PM EDT Note Date & Type Note Facility 03-29-2024 History of Present illness Narrative Reason for Appointment: Patient ID: Naima Rios is a 53 y.o. female who presents for Well Women Visit Patient presents today for Annual Exam. MEDICATIONS Current Outpatient Medications Medication Instructions albuterol HFA (ProAir HFA) 90 mcg/act inhaler 2 puffs, Inhalation, Every 6 hours PRN diclofenac sodium 3 % gel 1 application , Every 6 hours fenofibrate (TRIGLIDE) 160 mg, Oral, Daily melatonin 10 MG tablet 1 tablet, Nightly metFORMIN XR (GLUCOPHAGE-XR) 500 mg, Oral, Daily with evening meal, Do not crush, chew, or split. rOPINIRole (Requip) 0.5 MG tablet One tablet at bedtime ALLERGIES Allergies Allergen Reactions Duloxetine Hcl Other Reaction(s): severe drowsiness Metformin GI intolerance PROBLEMS Active Ambulatory Problems Diagnosis Date Noted Arthritis of left hand 09/17/2022 Arthritis of right hand 09/17/2022 Chronic fatigue 09/17/2022 Dependence on other enabling machine 09/17/2022 ESS (euthyroid sick syndrome) 09/17/2022 Fatty liver disease, nonalcoholic 09/17/2022 Glucose intolerance (impaired glucose tolerance) 09/17/2022 Hepatitis 09/17/2022 HTN (hypertension) ([facility]) 09/17/2022 Insomnia due to other mental disorder 09/17/2022 Mixed dyslipidemia ([facility]) 09/17/2022 Morbid obesity ([facility]) 09/17/2022 Obstructive sleep apnea hypopnea, moderate 09/17/2022 Osteoarthritis of joint of toe of right foot 09/17/2022 Other chronic pain 09/17/2022 Overactive bladder 09/17/2022 Primary osteoarthritis, right hand 09/17/2022 Recurrent major depressive disorder, in partial remission (HCC) ([facility]) 09/17/2022 Sleep disorder 09/17/2022 Status post bilateral knee replacements 09/17/2022 Enuresis 09/17/2022 Urinary incontinence 09/17/2022 Adult BMI 45.0-49.9 kg/sq m ([facility]) 05/14/2023 Restless leg syndrome 08/14/2023 Pre-diabetes 03/20/2024 Resolved Ambulatory Problems Diagnosis Date Noted Gynecological disease 09/17/2022 Pain in female genitalia on intercourse 09/17/2022 Piriformis syndrome of left side 09/17/2022 Past Medical History: Diagnosis Date Anxiety Arthritis Back problem Bladder infection Chest wall abscess COVID-19 11/2019 Depression (CMS/[facility]) Kidney stones Knee problem Migraine headache (CMS/[facility]) Moderate single current episode of major depressive disorder (HCC) (CMS/[facility]) Obesity PMB (postmenopausal bleeding) Post-acute sequelae of COVID-19 ([facility]) Sprain of left ankle Swelling Varicella Vision impairment HISTORY PAST MEDICAL HISTORY SOCIAL HISTORY Past Medical History: Diagnosis Date Anxiety Arthritis Back problem Bladder infection Chest wall abscess COVID-19 11/2019 Depression (CMS/HCC) ESS (euthyroid sick syndrome) HTN (hypertension) ([facility]/HCC) Kidney stones Knee problem Migraine headache (CMS/[facility]) Moderate single current episode of major depressive disorder (HCC) ([facility]) Obesity Piriformis syndrome of left side 09/17/2022 PMB (postmenopausal bleeding) Post-acute sequelae of COVID-19 ([facility]) Sprain of left ankle torn tendons 1998 and 1994 Swelling leg and foot Varicella Vision impairment Social History Tobacco Use Smoking status: Never Smokeless tobacco: Never Vaping Use Vaping status: Never Used Substance Use Topics Alcohol use: Never Comment: Caffeine intake: 2-3 cups per day Drug use: Never FAMILY HISTORY Family History Adopted: Yes Problem Relation Name Age of Onset Cancer Mother Angélica Garcia SURGICAL HISTORY Past Surgical History: Procedure Laterality Date SECTION, LOW TRANSVERSE 2006 CHOLECYSTECTOMY CYST REMOVAL chest DILATION AND CURETTAGE 04/06/2018 JOINT REPLACEMENT OTHER SURGICAL HISTORY bilateral arthroscopy [place] LAP,CHOLECYSTECTOMY 2016 TOTAL KNEE ARTHROPLASTY Bilateral 2014 WISDOM TOOTH EXTRACTION 1993 x4 REVIEW OF SYSTEMS Review of Systems: Review of Systems Constitutional: Negative. HENT: Negative. Eyes: Negative. Respiratory: Negative. Cardiovascular: Negative. Gastrointestinal: Negative. Genitourinary: Negative. Musculoskeletal: Negative. Skin: Negative. Neurological: Negative. All other systems reviewed and are negative. Hematological: Negative. Endocrine: Negative. Allergic/Immunologic: Negative. OBJECTIVE Objective: Physical Exam Constitutional: Appearance: Normal appearance. She is well-developed. Genitourinary: Vulva normal. Breasts: Breasts are soft. Right: Normal. Left: Normal. Cardiovascular: Rate and Rhythm: Normal rate and regular rhythm. Pulmonary: Effort: Pulmonary effort is normal. Breath sounds: Normal breath sounds. Abdominal: General: Bowel sounds are normal. There is no distension. Palpations: Abdomen is soft. Tenderness: There is no abdominal tenderness. There is no guarding or rebound. Musculoskeletal: General: No swelling. Normal range of motion. Right lower leg: No edema. Left lower leg: No edema. Neurological: Mental Status: She is alert and oriented to person, place, and time. Skin: General: Skin is warm and dry. Psychiatric: Mood and Affect: Mood normal. Behavior: Behavior normal. Vitals and nursing note reviewed. Exam conducted with a emr analyst present. Vitals: Estimated body mass index is 36.34 kg/m as calculated from the following: Height as of 24: 5' 3 . Weight as of this encounter: 205 lb 1.9 oz. BP: 138/90 No LMP recorded. Patient is postmenopausal. ASSESSMENT & PLAN ICD-10-CM 1. Well woman exam with routine gynecological exam Z01.419 THIN PREP TIS PAP AND HR HPV DNA Annual: Patient presents today for an annual exam. Patient states she is doing well and has complaints of hot flashes, night sweats, mood swings and rash under breasts. Rx for diflucan faxed to pharmacy. Pt given samples of veozah, if desires will call office to have script faxed to pharmacy- reviewed las with pt. Pap was obtained without difficulty and patient given mammogram order to have scheduled/obtained. No orders of the defined types were placed in this encounter. Follow Up: Patient is to return in one year for annual unless needed otherwise. Documented by Vangie Pringle LPN on behalf of: OSVALDO Wilks documented in this encounter [facility] 03-11-2024 History of Present illness Narrative Images from the original note were not included. Patient ID: Naima Rios is a 53 y.o. female who presents for: Review Results: Patient is here in the office today to review recent labs or diagnostic imaging with Dr Nathaniel Alba per his request. Based on the results they will also review treatment options. Please see labs dated March 05 2024. Review of Systems Constitutional: Negative for chills and fever. Respiratory: Negative for cough, shortness of breath and wheezing. Cardiovascular: Negative for chest pain and palpitations. Gastrointestinal: Negative for abdominal pain. Genitourinary: Negative for frequency and urgency. Objective The patient is pleasant and in no acute distress The patient does not appear to have a gross neurologic deficit. The patient has good eye contact and clear speech Visit Vitals Ht 5' 3 Wt 280 lb BMI 49.60 kg/m OB Status Postmenopausal Smoking Status Never BSA 2.38 m Allergies Allergen Reactions Duloxetine Hcl Other Reaction(s): severe drowsiness Current Outpatient Medications on File Prior to Visit Medication Sig Dispense Refill albuterol HFA (ProAir HFA) 90 mcg/act inhaler Inhale 2 puffs every 6 (six) hours if needed for wheezing 18 g 3 diclofenac sodium 3 % gel Apply 1 application topically every 6 (six) hours. melatonin 10 MG tablet Take 1 tablet by mouth at bedtime. rOPINIRole (Requip) 0.5 MG tablet One tablet at bedtime 90 tablet 1 No current facility-administered medications on file prior to visit. 1. Restless leg syndrome New, chronic problem. We discussed the problem in his pathology. We discussed the importance of stretching in the evening some time. We discussed medication options. In prescribing a new medication consideration of the following encompasses moderate decision making: the current prescriptions and supplements, the current allergies and medication intolerances, the current medical conditions, and potential drug interactions. Risks, benefits, and reason for starting their medication were discussed. The patient was given a chance to ask questions today and all questions were answered. The patient is to contact us if any other questions arise or if any problems occur with the adjustment in their medication. - rOPINIRole (Requip) 0.5 MG tablet; One tablet at bedtime Dispense: 90 tablet; Refill: 1 2. Pre-diabetes (Primary) New, chronic problem. This is progressed from just insulin resistance. She has previously tried regular release metformin and had significant diarrhea with it. We discussed the importance of lifestyle changes. We discussed that we are going to start some low-dose sustained release metformin which frequently we will not cause the diarrhea. She will call me back in about 3 weeks with an update. Otherwise we may want to consider pioglitazone. - metFORMIN XR (Glucophage-XR) 500 MG 24 hr tablet; Take 1 tablet (500 mg) by mouth in the evening. Take with meals Do not crush, chew, or split. Dispense: 30 tablet; Refill: 0 3. Mixed dyslipidemia (CMS/HCC) Chronic problem that has failed lifestyle modifications. We should be treating this is it has worsened. I did send in fenofibrate 150 mg. In the next phone note you can see the pharmacy called back and stated this was not covered but the 160 mg tablet was covered which is the exact opposite of what the electronic health record noted when I was prescribing. A new prescription for the 160 mg was sent. documented in this encounter [facility] 02-25-2024 History of Present illness Narrative Images from the original note were not included. Patient ID: Naima Rios is a 53 y.o. female who presents for: See Scanned Wellness packet Advance Directive/Living Will: No Health Care Power of Almond Paste Mixer: No Review of Systems Constitutional: Positive for appetite change. Negative for chills, fever and unexpected weight change. Breasts: Negative for breast mass and breast discharge. Respiratory: Negative for cough, shortness of breath and wheezing. Cardiovascular: Positive for leg swelling. Negative for chest pain and palpitations. Gastrointestinal: Negative for abdominal pain, constipation and diarrhea. Genitourinary: Negative for frequency and urgency. Neurological: Negative for light-headedness and headaches. Psychiatric/Behavioral: Positive for sleep disturbance. Negative for behavioral problems. The patient is not nervous/anxious. Objective The patient is pleasant and in no acute distress. The head is normocephalic and atraumatic. Both eyes appear grossly normal without obvious lid pathology or icterus. Both ears hearing is grossly intact. The neck is supple and trachea is midline. No masses are appreciated. The anterior cervical lymphatics demonstrates shoddy bilateral nontender lymphadenopathy. There is no supraclavicular lymphadenopathy. The heart is regular rate and rhythm without S3, S4. No murmur. The patient has normal respiratory pattern. The breath sounds are symmetrical without evidence of rhonchi or rales. No wheezing. The skin is warm and dry. The lower extremities have trace edema. Neurologic screening exam is nonfocal. The patient is alert. There is no overt gross evidence of cognitive impairment The patient has good eye contact and speech is clear. Appropriate affect. Visit Vitals BP 132/78 Pulse 97 Ht 5' 3 Wt 280 lb SpO2 99% BMI 49.60 kg/m OB Status Postmenopausal Smoking Status Never BSA 2.38 m Allergies Allergen Reactions Duloxetine Hcl Other Reaction(s): severe drowsiness Current Outpatient Medications on File Prior to Visit Medication Sig Dispense Refill albuterol HFA (ProAir HFA) 90 mcg/act inhaler Inhale 2 puffs every 6 (six) hours if needed for wheezing 18 g 3 diclofenac sodium 3 % gel Apply 1 application topically every 6 (six) hours. melatonin 10 MG tablet Take 1 tablet by mouth at bedtime. rOPINIRole (Requip) 0.5 MG tablet One tablet at bedtime 90 tablet 1 [DISCONTINUED] escitalopram (Lexapro) 5 MG tablet Take 1 tablet (5 mg) by mouth Daily 30 tablet 0 [DISCONTINUED] fenofibrate (Tricor) 145 MG tablet Take 1 tablet (145 mg) by mouth in the morning. 90 tablet 1 [DISCONTINUED] gabapentin (Neurontin) 100 MG capsule 2 capsules three times daily as needed for pain (Patient not taking: Reported on 02/25/2024) 180 capsule 1 [DISCONTINUED] gabapentin (Neurontin) 300 MG capsule Take 1 capsule (300 mg) by mouth at bedtime (Patient not taking: Reported on 02/25/2024) 90 capsule 1 [DISCONTINUED] meloxicam (Mobic) 15 MG tablet Take 15 mg by mouth in the morning. (Patient not taking: Reported on 02/25/2024) No current facility-administered medications on file prior to visit. 1. Encounter for wellness examination in adult (Primary) I have reviewed the patients PMShx, medications, and reconciled the problem list. Health maintenance and risk was reviewed and discussed. I also reviewed and discussed as appropriate; immunizations, colon cancer screening, breast and cervical cancer screening, recommended and any current lab evaluation. All items were brought up to date unless declined by the patient. 2. Advance directive discussed with patient Patient voluntarily agreed to discuss advance care planning at today's wellness visit. We discussed that an advance directive is a legal document that only goes into effect if the patient is incapacitated and unable to speak for themselves. This would help us to decide what care the patient would want. We discussed emergency treatments to keep the patient alive such as CPR, ventilator use and concept of comfort. We discussed how patients could make their wishes known through a living will, durable power of deputy commonwealth's attorney for healthcare, or other advanced directives. We discussed telling [place] people about their advance and a copy will be kept in the EHR. I discussed that they should also make me an emergency contact in their cell phone, and/or notify their POA that I have a copy of the advanced directives. 3. Morbid obesity (CMS/[facility]) We discussed some options medication assistance for her. She had side effects from metformin. Ultimately she is going to consider pioglitazone and will contact us back if she is interested. 4. Adult BMI 45.0-49.9 kg/sq m (CMS/HCC) Defines the morbid obesity 5. Glucose intolerance (impaired glucose tolerance) - Comprehensive metabolic panel; Future - Comprehensive metabolic panel 6. Mixed hyperlipidemia (CMS/HCC) - Lipid panel; Future - Lipid panel 7. Primary hypertension (CMS/HCC) Chronic problem, stable, to goal - Comprehensive metabolic panel; Future - Comprehensive metabolic panel 8. Menopausal and female climacteric states Her menopause was over 10 years ago. She has never had DEXA scan. She has some family history of osteoporosis. - DEXA bone density; Future 9. Osteoporosis screening - DEXA bone density; Future 10. Encounter for follow-up examination after completed treatment for conditions other than malignant neoplasm Encounter condition is her prolonged menopausal state. - DEXA bone density; Future 11. Screening mammogram for breast cancer - Bilateral screening mammogram with tomosynthesis; Future documented in this encounter [facility] 12-05-2022 Note HNO ID: [id number] Author: Taylor Gee RD Service: ? Author Type: Registered Dietitian Type: Progress Notes Filed: 12/05/2022 2:43 PM Note Text: [facility] Nutrition Therapy: Virtual Consult - Initial Assessment I have communicated my name and active licensure. The patient?s identity and physical location were verified at the time of this visit. Either the patient or their legal customer loyalty representative has been informed of the risks and benefits of -- and alternatives to -- treatment through a remote evaluation and consents to proceed with the evaluation remotely. Nutrition Diagnosis: Overweight/obesity, related to, excess energy intake and physical inactivity, as evidenced by BMI above normative standard for age and gender. RECOMMENDED MALNUTRITION DIAGNOSIS: NO MALNUTRITION IDENTIFIED NUTRITION CARE PLAN Nutrition Intervention 12/05/2022: Modify type and quantity of foods with meals and snacks Continue to follow high protein, low carbohydrate, moderate fat eating pattern. Aim for: -up to 30g carb per meal and up to 15g carb per snack -15-30g protein per meal and 5-10g protein per snack 3. Choose whole grain starches with at least 2-3g fiber per serving-diet or lite wheat bread, crackers, popcorn 4. Continue to include vegetables with lunch, dinner and snacks as desired 5. Consider protein shake as meal replacement or snack *Choose protein shake with <200 calories, at least 15g protein, <10g carbohydrate: -Premier Protein, Orgain Clean Protein, Slimfast High Protein, Atkins, [employer] Core Power, [employer] Nutrition Plan 6. Choose lean protein sources most often: Avoid-salami, sausage, pepperoni, bologna, hot dogs 7. Aim for at least 64 ounces of Zero calorie fluids per day -Aim for 2-3 cups coffee/day-try to flavor to only half AND half Exercise Goal: Start going to the gym M,W, F-walk on treadmill or bike for 30 minutes + 30 minutes on strength training machines. Nutrition Monitoring AND Evaluation: 1-2lb weight loss per week Need for Follow up: 4-5 months on same day as Dr. Rios Patient presents with fatty liver for nutrition assessment to support weight loss. PMH:dyslipidemia, YOLI on CPAP. Previous weight loss:high protein, low carb diet-lost 30lbs, but slowly regained. Started Metformin and statin 11/14/22. Stopped eating white potato, rice, pasta. Has lost 10lbs on home scale. Diet recall reveals strong compliance with high protein , low carb eating pattern; good intake of fruit, vegetables; choosing lean protein sources most often. Fluid intake is adequate. Physical activity level is inadequate to support health and weight loss. Patient's symptoms are: Weight Concerns: obesity Diet History: Wakes at 4:30am Breakfast - 7-7:30a-2 eggs +/- 1 sl diet/lite white bread Snack - 10am-salami + cheese or fruit or none Lunch - [id number] w/ chicken/ham, makenzie, onion, pepper FF ranch or meat loaf + applesauce Snack - work-sugar free pudding or fruit; home-chips w/ cheese or popcorn Dinner - meat loaf/hamburger/chicken/steak/shr imp + veg +/- sweet potato/SF baked beans Snack - carb smart ice cream; sugar free popsice/fudgesicle Beverages - coffee w/ SF cream, water, coke zero Alcohol- none Vitamins/Supplements - see med list Dislikes fish Activity: Activities of Daily Living: Active <25% of the day. 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 Resting Metabolic Rate: 1783 Malnutrition Screening Significant unintentional weight loss? No Eating less than 75% of usual intake for more than 2 weeks? No Potential Signs of Inflammation: no identifiable sources Education Materials Provided: Portion Plate Placemat READINESS TO LEARN Cognitive ability: Alert and oriented Motivation to learn: Interested Family support: Unable to assess - Family not present Instruction provided to: Patient Patient learns best by: Verbal Instruction Demonstration Factors affecting learning: None Physical limitations affecting learning: None Referred by: Anibal THOMPSON Billing Type: Initial Assess/15 min 2 units SIGNATURE: Taylor Gee RD PATIENT NAME: Naima Rios DATE: 12/05/2022 TIME: 2:05 PM PAGER: [phone] [facility] 12-05-2022 History of Present illness Narrative [facility] Nutrition Therapy: Virtual Consult - Initial Assessment I have communicated my name and active licensure. The patient s identity and physical location were verified at the time of this visit. Either the patient or their legal customer loyalty representative has been informed of the risks and benefits of -- and alternatives to -- treatment through a remote evaluation and consents to proceed with the evaluation remotely. Nutrition Diagnosis: Overweight/obesity, related to, excess energy intake and physical inactivity, as evidenced by BMI above normative standard for age and gender. RECOMMENDED MALNUTRITION DIAGNOSIS: NO MALNUTRITION IDENTIFIED NUTRITION CARE PLAN Nutrition Intervention 12/05/2022: Modify type and quantity of foods with meals and snacks Continue to follow high protein, low carbohydrate, moderate fat eating pattern. Aim for: -up to 30g carb per meal and up to 15g carb per snack -15-30g protein per meal and 5-10g protein per snack 3. Choose whole grain starches with at least 2-3g fiber per serving-diet or lite wheat bread, crackers, popcorn 4. Continue to include vegetables with lunch, dinner and snacks as desired 5. Consider protein shake as meal replacement or snack *Choose protein shake with <200 calories, at least 15g protein, <10g carbohydrate: -Premier Protein, Orgain Clean Protein, Slimfast High Protein, Atkins, [employer] Core Power, [employer] Nutrition Plan 6. Choose lean protein sources most often: Avoid-salami, sausage, pepperoni, bologna, hot dogs 7. Aim for at least 64 ounces of Zero calorie fluids per day -Aim for 2-3 cups coffee/day-try to flavor to only half & half Exercise Goal: Start going to the gym M,W, F-walk on treadmill or bike for 30 minutes + 30 minutes on strength training machines. Nutrition Monitoring & Evaluation: 1-2lb weight loss per week Need for Follow up: 4-5 months on same day as Dr. Rios Patient presents with fatty liver for nutrition assessment to support weight loss. PMH:dyslipidemia, YOLI on CPAP. Previous weight loss:high protein, low carb diet-lost 30lbs, but slowly regained. Started Metformin and statin 11/14/22. Stopped eating white potato, rice, pasta. Has lost 10lbs on home scale. Diet recall reveals strong compliance with high protein , low carb eating pattern; good intake of fruit, vegetables; choosing lean protein sources most often. Fluid intake is adequate. Physical activity level is inadequate to support health and weight loss. Patient's symptoms are: Weight Concerns: obesity Diet History: Wakes at 4:30am Breakfast - 7-7:30a-2 eggs +/- 1 sl diet/lite white bread Snack - 10am-salami + cheese or fruit or none Lunch - [id number] w/ chicken/ham, makenzie, onion, pepper FF ranch or meat loaf + applesauce Snack - work-sugar free pudding or fruit; home-chips w/ cheese or popcorn Dinner - meat loaf/hamburger/chicken/steak/shr imp + veg +/- sweet potato/SF baked beans Snack - carb smart ice cream; sugar free popsice/fudgesicle Beverages - coffee w/ SF cream, water, coke zero Alcohol- none Vitamins/Supplements - see med list Dislikes fish Activity: Activities of Daily Living: Active <25% of the day. 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 Resting Metabolic Rate: 1783 Malnutrition Screening Significant unintentional weight loss? No Eating less than 75% of usual intake for more than 2 weeks? No Potential Signs of Inflammation: no identifiable sources Education Materials Provided: Portion Plate Placemat READINESS TO LEARN Cognitive ability: Alert and oriented Motivation to learn: Interested Family support: Unable to assess - Family not present Instruction provided to: Patient Patient learns best by: Verbal Instruction Demonstration Factors affecting learning: None Physical limitations affecting learning: None Referred by: Anibal Rios MNT Billing Type: Initial Assess/15 min 2 units SIGNATURE: Taylor Gee RD PATIENT NAME: Naima Rios DATE: 12/05/2022 TIME: 2:05 PM PAGER: [phone] documented in this encounter [facility] 10-30-2022 Note HNO ID: [id number] Author: Radha Rios MD Service: ? Author Type: Physician Type: Progress Notes Filed: 10/30/2022 2:34 PM Note Text: Hepatology Clinic Mindy Richey MD, FACG, FAASLD Director, [facility] Hepatology [facility] Consult Requested By: Mike Saeed [address] [facility] [id number] for evaluation of her fatty liver .. Thank you Dr Alba I will share my finding via in basket HPI: Follows with Dr Spears 52 yo lady with partner she has been with a BMI> 46 for years she had a fibroscan 01/2022 showing fatty liver unsure of scarring never had a liver biopsy she has abnormal liver enzymes she has dyslipidemia she has no CAD has not seen nutritonist liver US IMPRESSION: 1 liver is prominent in size measuring 18 cm. There is diffuse increased echogenicity of liver consistent with fatty infiltration of the liver. 2. Absent gallbladder. 3. The remainder the right upper quadrant was unremarkable. Electronically authenticated by: MONTRELL WU Date: 2021-10-16 07:39 never used to drink alcohol GENERAL REVIEW OF SYSTEMS: GENERAL: No unexplained weight changes or fevers. HEENT: Negative for severe headaches, negative for changes in hearing or vision. NECK: Negative for lumps, masses or pain. RESPIRATORY: Negative for coughing, wheezing or significant dyspnea. CARDIOVASCULAR: Negative for chest pain or heart palpitations. GASTROINTESTINAL: Negative for rectal bleeding or black tarry stools. GENITOURINARY: Negative for dysuria or urinary incontinence. MUSCULOSKELETAL: Negative for unexplained joint pains, dislocations or fractures. NEUROLOGIC: Negative for unexplained weakness or vertigo. SKIN: Negative for new lesions or rashes. ENDOCRINE: Negative for cold or heat intolerance . has a CPAP No family history on file. PAST MEDICAL HISTORY Diagnosis Date Bilateral knee pain 08/26/2012 OA BMI 40.0-44.9, adult (HCC) BMI 42 Mixed hyperlipidemia Hyperlipidemia PAST SURGICAL HISTORY Procedure Laterality Date ARTHRS KNE SURG W/MENISCECTOMY MED/LAT W/SHVG Bilateral DELIVERY ONLY , low transverse COLONOSCOPY FLX DX W/COLLJ SPEC WHEN PFRMD Colonoscopy EGD EXTRACTION, ERUPTED TOOTH OR EXPOSED ROOT (ELEVATION AND/OR FORCEPS REMOVAL) Social History Tobacco Use Smoking status: Never Smokeless tobacco: Never Substance Use Topics Alcohol use: No Drug use: No Current Outpatient Medications on File Prior to Visit Medication Sig albuterol HFA (PROVENTIL HFA, VENTOLIN HFA) 90 mcg/actuation inhaler Inhale 2 Puffs as instructed every 6 hours as needed. meloxicam (MOBIC) 15 mg tablet Take 1 tablet by mouth once daily. No current facility-administered medications on file prior to visit. albuterol HFA (PROVENTIL HFA, VENTOLIN HFA) 90 mcg/actuation inhaler Inhale 2 Puffs as instructed every 6 hours as needed. meloxicam (MOBIC) 15 mg tablet Take 1 tablet by mouth once daily. PHYSICAL EXAMINATION: Ht 5' 3 (1.60m) Wt 265 lb (120.2kg) LMP 03/09/2013 BMI 46.95 kg/(m2). General: well appearing no distress HEENT negative no icterus Lungs CTA ronen COR rrm- Abdomen benign Extremities no edema no spiders no palmar erythema WASHER CARCASS no asterixis , a+0 X3 Glucose Date Value Ref Range Status 03/31/2013 157 (H) 65 - 100 mg/dL Final CRP Date Value Ref Range Status 10/14/2019 0.6 <0.9 mg/dL Final TG 230 HDL 50 ast /alt 36/50 Fibroscan done 01/2022 A/p: Dear Dr Alba Naima is a 52 yo lady she has abnormal liver tests, fatty liver, and a bmi> 45, YOLI we discussed need for : nutriional referral start GLP1RA/ Wegovy start statins exercise 300 min a week plus 3 days a week strenuous patient to discuss the above with Dr Alba rtc 4-7m Radha Richey MD Consider seeing me at main on a Thank you again for your kind referral. Please feel free to contact me if I can be of further assistance to you {I spent 45 minutes in the visit, with more than 50% of the total preu-wz-jwij time of the visit in counseling / coordination of care. [facility] 10-30-2022 History of Present illness Narrative Images from the original note were not included. Hepatology Clinic Mindy Richey MD, FACG, FAASLD Director, [facility] Hepatology [facility] Consult Requested By: Mike Saeed [address] [facility] [id number] for evaluation of her fatty liver .. Thank you Dr Alba I will share my finding via in basket HPI: Follows with Dr Spears 52 yo lady with partner she has been with a BMI> 46 for years she had a fibroscan 01/2022 showing fatty liver unsure of scarring never had a liver biopsy she has abnormal liver enzymes she has dyslipidemia she has no CAD has not seen nutritonist liver US IMPRESSION: 1 liver is prominent in size measuring 18 cm. There is diffuse increased echogenicity of liver consistent with fatty infiltration of the liver. 2. Absent gallbladder. 3. The remainder the right upper quadrant was unremarkable. Electronically authenticated by: MONTRELL WU Date: 2021-10-16 07:39 never used to drink alcohol GENERAL REVIEW OF SYSTEMS: GENERAL: No unexplained weight changes or fevers. HEENT: Negative for severe headaches, negative for changes in hearing or vision. NECK: Negative for lumps, masses or pain. RESPIRATORY: Negative for coughing, wheezing or significant dyspnea. CARDIOVASCULAR: Negative for chest pain or heart palpitations. GASTROINTESTINAL: Negative for rectal bleeding or black tarry stools. GENITOURINARY: Negative for dysuria or urinary incontinence. MUSCULOSKELETAL: Negative for unexplained joint pains, dislocations or fractures. NEUROLOGIC: Negative for unexplained weakness or vertigo. SKIN: Negative for new lesions or rashes. ENDOCRINE: Negative for cold or heat intolerance . has a CPAP No family history on file. PAST MEDICAL HISTORY Diagnosis Date Bilateral knee pain 08/26/2012 OA BMI 40.0-44.9, adult (HCC) BMI 42 Mixed hyperlipidemia Hyperlipidemia PAST SURGICAL HISTORY Procedure Laterality Date ARTHRS KNE SURG W/MENISCECTOMY MED/LAT W/SHVG Bilateral DELIVERY ONLY , low transverse COLONOSCOPY FLX DX W/COLLJ SPEC WHEN PFRMD Colonoscopy EGD EXTRACTION, ERUPTED TOOTH OR EXPOSED ROOT (ELEVATION AND/OR FORCEPS REMOVAL) Social History Tobacco Use Smoking status: Never Smokeless tobacco: Never Substance Use Topics Alcohol use: No Drug use: No Current Outpatient Medications on File Prior to Visit Medication Sig albuterol HFA (PROVENTIL HFA, VENTOLIN HFA) 90 mcg/actuation inhaler Inhale 2 Puffs as instructed every 6 hours as needed. meloxicam (MOBIC) 15 mg tablet Take 1 tablet by mouth once daily. No current facility-administered medications on file prior to visit. albuterol HFA (PROVENTIL HFA, VENTOLIN HFA) 90 mcg/actuation inhaler Inhale 2 Puffs as instructed every 6 hours as needed. meloxicam (MOBIC) 15 mg tablet Take 1 tablet by mouth once daily. PHYSICAL EXAMINATION: Ht 5' 3 (1.60m) Wt 265 lb (120.2kg) LMP 03/09/2013 BMI 46.95 kg/(m^2). General: well appearing no distress HEENT negative no icterus Lungs CTA ronen COR rrm- Abdomen benign Extremities no edema no spiders no palmar erythema WASHER CARCASS no asterixis , a+0 X3 Glucose Date Value Ref Range Status 03/31/2013 157 (H) 65 - 100 mg/dL Final CRP Date Value Ref Range Status 10/14/2019 0.6 <0.9 mg/dL Final TG 230 HDL 50 ast /alt 36/50 Fibroscan done 01/2022 A/p: Dear Dr Alba Naima is a 52 yo lady she has abnormal liver tests, fatty liver, and a bmi> 45, YOLI we discussed need for : nutriional referral start GLP1RA/ Wegovy start statins exercise 300 min a week plus 3 days a week strenuous patient to discuss the above with Dr Alba rtc 4-7m Radha Richey MD Consider seeing me at [facility] on a Thank you again for your kind referral. Please feel free to contact me if I can be of further assistance to you {I spent 45 minutes in the visit, with more than 50% of the total qiaz-sw-wogr time of the visit in counseling / coordination of care. documented in this encounter [facility] 08-01-2022 Note HNO ID: [id number] Author: Mariajose Asher MD Service: ? Author Type: Physician Type: Progress Notes Filed: 08/01/2022 3:52 PM Note Text: Rheumatology Outpatient Clinic Date of Service: 08/01/2022 Patient: Naima Rios Medical Record: [id number] Primary Care Physician: Ronak Flores Last Rheumatology visit: None at [facility] History of Present Illness Naima Rios is a 51 year old White female who presents on 08/01/2022 for an in-person visit for evaluation of New Patient (Arthritis in hands ) and Joint Pain. She is currently taking meloxicam. Naima is RF negative - 9 (10/14/2019). Her most recent ARTIE was negative (10/14/2019). HISTORY OF PRESENT ILLNESS Patient presents for evaluation of joint pain in several different joints. She states that she is have problems with the DIP joints of several of the fingers most active in her left second DIP joint. She has also had problems with her feet particular her right second and third toe have flared to the point where she thought she had a gout attack on 1 occasion in terms just to be a osteoarthritis flareup. She has some left hip pain and bilateral shoulder pain. She has had bilateral knee replacements due to her osteoarthritis. She is seen orthopedic surgery Dr. Romo in 2019 did labs that were all normal and noncontributory for her arthritis assessment. She also underwent hand x-rays that show erosive changes of osteoarthritis in the DIP joints. He had recommended occupational therapy which gave her slight improvement. She also initiated meloxicam at 7.5 mg orally once each day. She has tried this in combination with topical Voltaren gel and feels the gel has provided little additional benefit. She feels she does best when she is on consistent meloxicam. Her family doctor states that he is not comfortable with the risks associated with chronic NSAID use and recommends intermittent use. Patient feels that intermittent use is ineffective and painful. Patient-Entered Data PAIN EVALUATION 07/29/2022 0726 08/01/2022 1452 Pain Level: 7 8 Pain Location: Finger Hand-Left hands, shoulders, left hip, Description: Stiffness Stabbing;Stiffness;Aching Duration Units: Months Years Frequency: Continuous Continuous Intervention/Comfort measure: Medication;Massage;Therapeutic techniques-CPRP Medication;Relaxation;Heat;Exerc ise;Massage Comments: Fingers, toes, left hip, shoulders -- PROMIS Assessments PROMIS Assessments 07/29/2022 Physical Health Percentile 15 % Pain Score 2 Pain Interference Percentile 5 % Fatigue Percentile 46 % Physical Function Percentile 21 % RAPID 3 [place] Activities of Daily Living 07/29/2022 7:33 AM Dress self? With SOME difficulty Get in and out of bed? With SOME difficulty Walk outdoors? With SOME difficulty Wash and dry body? With SOME difficulty Get in and out of car? With SOME difficulty RAPID 3 Disease Activity Weighed Score Levels: 0 - 1: Near Remission 1.3 - 2.0: Low Severity 2.3 - 4.0: Moderate Severity 4.3 - 10.0: High Severity RAPID-3 Weighed Score 07/29/2022 RAPID 3 Weighed Score 5.22 (High Severity (HS)) Review of Systems Review of Systems CONSTITUTION: Negative for: Fever and Recent weight change HEENT: Negative for: Nosebleeds, Mouth sores, Trouble swallowing and Dry mouth RESPIRATORY: Positive for: Shortness of breath Negative for: Cough and Pain with breathing GASTROINTESTINAL: Negative for: Melena, Diarrhea, Heartburn and Abdominal pain MUSCULOSKELETAL: Positive for: Arthralgias, Myalgias, Muscle weakness, Joint swelling and Morning Joint Stiffness NEUROLOGICAL: Positive for: Headaches Negative for: Numbness and Memory loss SKIN: Negative for: Rash, Skin changes, Hair loss and Nail changes EYES: Negative for: Eye pain, Eye redness, Eye dryness and visual disturbance CARDIOVASCULAR: Negative for: Chest pain and Leg swelling GENITOURINARY: Negative for: Dysuria and Hematuria HEMATOLOGIC/LYMPHATIC: Negative for: Swollen glandsAll other reviewed and negative other than HPI. Past Medical History PAST MEDICAL HISTORY Diagnosis Date Bilateral knee pain 08/26/2012 OA BMI 40.0-44.9, adult (HCC) BMI 42 Mixed hyperlipidemia Hyperlipidemia Past Surgical History PAST SURGICAL HISTORY Procedure Laterality Date DELIVERY ONLY , low transverse COLONOSCOP W/ OR W/O [facility] SPEC Colonoscopy EGD EXTRACTION, ERUPTED TOOTH OR EXPOSED ROOT (ELEVATION AND/OR FORCEPS REMOVAL) KNEE SCOPE,MENISECTOMY,MED OR LAT Bilateral Family History No family history on file. Social History Social History Tobacco Use Smoking status: Never Smokeless tobacco: Never Substance Use Topics Alcohol use: No Drug use: No Current Medications Current Outpatient Medications Medication Sig liothyronine (CYTOMEL) 5 mcg tablet Take 5 mcg by mouth once daily. metaxalone (METAXALL) 800 mg tablet Take 800 mg by mouth as needed. meloxicam (more content not included)... [facility] 08-01-2022 History of Present illness Narrative Images from the original note were not included. Rheumatology Outpatient Clinic Date of Service: 08/01/2022 Patient: Naima Rios Medical Record: [id number] Primary Care Physician: Ronak Flores Last Rheumatology visit: None at [facility] History of Present Illness Naima Rios is a 51 year old White female who presents on 08/01/2022 for an in-person visit for evaluation of New Patient (Arthritis in hands ) and Joint Pain. She is currently taking meloxicam. Naima is RF negative - 9 (10/14/2019). Her most recent ARTIE was negative (10/14/2019). HISTORY OF PRESENT ILLNESS Patient presents for evaluation of joint pain in several different joints. She states that she is have problems with the DIP joints of several of the fingers most active in her left second DIP joint. She has also had problems with her feet particular her right second and third toe have flared to the point where she thought she had a gout attack on 1 occasion in terms just to be a osteoarthritis flareup. She has some left hip pain and bilateral shoulder pain. She has had bilateral knee replacements due to her osteoarthritis. She is seen orthopedic surgery Dr. Romo in 2019 did labs that were all normal and noncontributory for her arthritis assessment. She also underwent hand x-rays that show erosive changes of osteoarthritis in the DIP joints. He had recommended occupational therapy which gave her slight improvement. She also initiated meloxicam at 7.5 mg orally once each day. She has tried this in combination with topical Voltaren gel and feels the gel has provided little additional benefit. She feels she does best when she is on consistent meloxicam. Her family doctor states that he is not comfortable with the risks associated with chronic NSAID use and recommends intermittent use. Patient feels that intermittent use is ineffective and painful. Patient-Entered Data PAIN EVALUATION 07/29/2022 0726 08/01/2022 1452 Pain Level: 7 8 Pain Location: Finger Hand-Left hands, shoulders, left hip, Description: Stiffness Stabbing;Stiffness;Aching Duration Units: Months Years Frequency: Continuous Continuous Intervention/Comfort measure: Medication;Massage;Therapeutic techniques-CPRP Medication;Relaxation;Heat;Exerc ise;Massage Comments: Fingers, toes, left hip, shoulders -- PROMIS Assessments PROMIS Assessments 07/29/2022 Physical Health Percentile 15 % Pain Score 2 Pain Interference Percentile 5 % Fatigue Percentile 46 % Physical Function Percentile 21 % RAPID 3 [place] Activities of Daily Living 07/29/2022 7:33 AM Dress self? With SOME difficulty Get in and out of bed? With SOME difficulty Walk outdoors? With SOME difficulty Wash and dry body? With SOME difficulty Get in and out of car? With SOME difficulty RAPID 3 Disease Activity Weighed Score Levels: 0 - 1: Near Remission 1.3 - 2.0: Low Severity 2.3 - 4.0: Moderate Severity 4.3 - 10.0: High Severity RAPID-3 Weighed Score 07/29/2022 RAPID 3 Weighed Score 5.22 (High Severity (HS)) Review of Systems Review of Systems CONSTITUTION: Negative for: Fever and Recent weight change HEENT: Negative for: Nosebleeds, Mouth sores, Trouble swallowing and Dry mouth RESPIRATORY: Positive for: Shortness of breath Negative for: Cough and Pain with breathing GASTROINTESTINAL: Negative for: Melena, Diarrhea, Heartburn and Abdominal pain MUSCULOSKELETAL: Positive for: Arthralgias, Myalgias, Muscle weakness, Joint swelling and Morning Joint Stiffness NEUROLOGICAL: Positive for: Headaches Negative for: Numbness and Memory loss SKIN: Negative for: Rash, Skin changes, Hair loss and Nail changes EYES: Negative for: Eye pain, Eye redness, Eye dryness and visual disturbance CARDIOVASCULAR: Negative for: Chest pain and Leg swelling GENITOURINARY: Negative for: Dysuria and Hematuria HEMATOLOGIC/LYMPHATIC: Negative for: Swollen glandsAll other reviewed and negative other than HPI. Past Medical History PAST MEDICAL HISTORY Diagnosis Date Bilateral knee pain 08/26/2012 OA BMI 40.0-44.9, adult (HCC) BMI 42 Mixed hyperlipidemia Hyperlipidemia Past Surgical History PAST SURGICAL HISTORY Procedure Laterality Date DELIVERY ONLY , low transverse COLONOSCOP W/ OR W/O [facility] SPEC Colonoscopy EGD EXTRACTION, ERUPTED TOOTH OR EXPOSED ROOT (ELEVATION AND/OR FORCEPS REMOVAL) KNEE SCOPE,MENISECTOMY,MED OR LAT Bilateral Family History No family history on file. Social History Social History Tobacco Use Smoking status: Never Smokeless tobacco: Never Substance Use Topics Alcohol use: No Drug use: No Current Medications Current Outpatient Medications Medication Sig liothyronine (CYTOMEL) 5 mcg tablet Take 5 mcg by mouth once daily. metaxalone (METAXALL) 800 mg tablet Take 800 mg by mouth as needed. meloxicam (MOBIC) 15 mg tablet Take 1 tablet by mouth once daily. No current facility-administered medications for this visit. Labs CBC Latest Ref Rng & Units 03/31/2013 03/30/2013 03/30/2013 03/19/2013 WBC 3.70 - 11.00 k/uL 8.75 12.32(H) 5.11 5.41 HEMOGLOBIN 11.5 - 15.5 g/dL 11.7 13.9 9.5(L) 13.5 HEMATOCRIT 36.0 - 46.0 % 37.0 42.3 29.6(L) 41.6 PLATELETS 150 - 400 k/uL 145(L) 225 169 255 ABS NEUT (ANC) 1.45 - 7.50 k/uL - - - 3.65 ABS LYMPH 1.00 - 4.00 k/uL - - - 1.30 CMP Latest Ref Rng & Units 03/31/2013 03/30/2013 03/19/2013 10/28/2012 SODIUM 132 - 148 mmol/L 136 135 139 139 POTASSIUM 3.5 - 5.0 mmol/L 4.3 4.3 3.7 4.0 CHLORIDE 98 - 110 mmol/L 102 101 102 105 CO2 23 - 32 mmol/L 22(L) 19(L) 23 23 GLUCOSE 65 - 100 mg/dL 157(H) 108(H) 98 123(H) BUN 8 - 25 mg/dL 10 11 11 10 CREATININE 0.70 - 1.40 mg/dL 0.72 0.73 0.68(L) 0.69(L) CALCIUM, TOTAL 8.5 - 10.5 mg/dL 8.6 8.8 9.2 8.2(L) Uric Acid Latest Ref Rng & Units 10/14/2019 URIC ACID 2.5 - 6.6 mg/dL 5.8 ESR, WSR Latest Ref Rng & Units 10/14/2019 WSR 0 - 20 mm/hr 5 CRP Latest Ref Rng & Units 10/14/2019 CRP <0.9 mg/dL 0.6 RF and CCP Latest Ref Rng & Units 10/14/2019 RHEUMATOID FACTOR <16 IU/mL <10 Antibodies Latest Ref Rng & Units 10/14/2019 ARTIE BY EIA OD Ratio 0.3 ARTIE BY EIA, QUAL Negative Negative Imaging Last XR Hand/Finger - Impression Only XR HAND GENERAL 3V PA/LAT/OBL BILAT Exam End: 10/09/2019 8:17 AM (Final result) Impression: IMPRESSION: 1. There are small erosions in the distal ends of second and third digits on the RIGHT hand in the second digit of the LEFT hand. 2. There is narrowing of all interphalangeal joints. Retail Helper: MARJ Transcribe Date/Time: Oct 10 2019 10:51A... Last MRI Hand - Impression Only No resulted procedures found. Last XR Chest - Impression Only No resulted procedures found. Last XR Cervical Spine - Impression Only No resulted procedures found. Health Maintenance Current Immunizations Never Reviewed Name Date COVID-19 vaccine, bivalent ([employer]) 01/15/2022 COVID-19 vaccine, monovalent ([employer]) 07/27/2021 , 03/08/2021 , 08/04/2020 Physical Exam GENERAL APPEARANCE: Well groomed. Alert and oriented x 3. In no distress. VITAL SIGNS: BP 177/81 Pulse 101 LMP 03/09/2013 SKIN: No rash, thickening, nodules, discoloration. EYES: PERRL, EOMI. No inflammation seen. HENT: External examination and palpation of the ears and nose normal. Lips, teeth, and gums normal. Oropharynx and tongue normal. No lesions or exudate. NECK: No mass or asymmetry. RESPIRATORY: Normal respiratory effort. Clear to auscultation and percussion. CARDIOVASCULAR: Heart RRR without gallop, murmur, or rub. No bruits across chest or neck. EXTREMITIES: Normal and equal pulses in all 4 extremities. No edema. ABDOMEN: BS normal. No bruits, No tenderness, mass, or hepatosplenomegaly. NEUROLOGIC: Sensory exam normal. MUSCULOSKELETAL EXAMINATION: Soft tissue tender points: None Motor exam: Normal 5+/5+ muscle strength. Normal bulk and tone. Cervical spine: No visible abnormalities. Full ROM. No tenderness to palpation. Thoracic spine: No visible abnormalities. No tenderness to palpation. Lumbar spine: No visible abnormalities. Full ROM. No tenderness to palpation. Joint Exam 08/01/2022 Right Left Glenohumeral Tender Tender DIP 2 Tender Tender DIP 3 Tender Tender DIP 4 Tender Tender DIP 5 Tender Tender MTP 1 Tender MTP 2 Tender The following joints were examined and normal: Left Sternoclavicular, Right Sternoclavicular, Left Acromioclavicular, Right Acromioclavicular, Left Elbow, Right Elbow, Left Wrist, Right Wrist, Left MCP 1, Right MCP 1, Left MCP 2, Right MCP 2, Left MCP 3, Right MCP 3, Left MCP 4, Right MCP 4, Left MCP 5, Right MCP 5, Left IP, Right IP, Left PIP 2, Right PIP 2, Left PIP 3, Right PIP 3, Left PIP 4, Right PIP 4, Left PIP 5, Right PIP 5, Left Knee, Right Knee, Left Ankle, Right Ankle, Left MTP 1, Left MTP 2, Left MTP 3, Right MTP 3, Left MTP 4, Right MTP 4, Left MTP 5, Right MTP 5 Joint Exam Data (across time) Joint Exam 08/01/2022 Total Tender 2 Total Swollen 0 Heberden's nodes diffusely across all DIP joints. Impression Diagnoses: (M15.4) Erosive osteoarthritis of both hands (primary encounter diagnosis) (M15.9) Primary osteoarthritis involving multiple joints (Z79.1) NSAID long-term use Plan Orders this visit: Office Visit on 08/01/22 meloxicam (MOBIC) 15 mg tablet After full rheumatic examination evaluation I believe the patient has osteoarthritis with particularly erosive osteoarthritis involving the DIP joints of several of her fingers. I discussed differences between osteoarthritis and inflammatory arthritis such as rheumatoid arthritis. I also discussed the particular kind of erosive osteoarthritis that she has in her DIP joints is unique and difficult to treat. I reviewed her labs and x-rays from 2019 and I do not feel any reassessment of these would be fruitful. I discussed concepts of treatment and they are quite limited. Certainly chronic NSAID use can provide benefit long-term at but it does not provide a change in the outcome of the arthritis over time. I described to the patient the significant concern for risk of kidney disease, liver disease, coronary artery disease as well as peptic ulcer disease with the use of these meds. She fully understands these risks. We will monitor her with meloxicam and she will bump it to 15 mg once daily. I recommend we monitor labs roughly every 6 months. I sent in a supply of meloxicam 15 mg for a 30-day amount and 2 refills. She will reach out if she prefers a 90-day refill if the 15 mg meloxicam is satisfactory. Return in about 6 months (around 01/31/2023). I spent a total of 45 minutes on the date of the service which included preparing to see the patient, [id number] patient care, completing clinical documentation, obtaining and/or reviewing separately obtained history, performing a medically appropriate examination, counseling and educating the patient/family/caregiver, ordering medications, tests, or procedures, independently interpreting results (not separately reported), and communicating results to the patient/family/caregiver. Medical Decision Making: Problems: Moderate: 1+ chronic illnesses with change Data: Unique test result(s) reviewed: 3+ Risk: Moderate: Moderate risk from testing/treatment Medical Decision Making Level: 4 - Moderate Mariajose Asher MD Rheumatology Date: August 01, 2022 Time: 3:09 PM documented in this encounter [facility] 05-07-2022 Evaluation note Encounter Date Diagnosis Assessment Notes Apr, Fatty liver (ICD-10 - K76.0) LABS PATIENT ENCOURAGED WEIGHT LOSS. REFERRAL TO WEIGHT LOSS CLINIC WITH DR. LI. Apr, Elevated liver enzymes (ICD-10 - R74.8) [facility] Other 10-05-2022 Evaluation note* Encounter Date Diagnosis Assessment Notes Treatment Notes Treatment Clinical Notes Jan, Elevated liver enzymes (ICD-10 - R74.8) patient states this is usually a little elevated but this time it had tripeled we will order some testing at this time. Jan, Fatty liver (ICD-10 - K76.0) will order testing at this time encouraged weight loss with the patient patient to start vitamin e and milk thistle OTC [facility] Other Evaluation noteNo [employer] Other Evaluation note* Diagnosis Erosive osteoarthritis of both hands- Primary Primary osteoarthritis involving multiple joints NSAID long-term use Encounter for long-term (current) use of non-steroidal anti-inflammatories [facility] Diagnosis Fatty liver- Primary Other chronic nonalcoholic liver disease Class 3 severe obesity due to excess calories in adult, unspecified BMI, unspecified whether serious comorbidity present (HCC) documented [facility] this [facility]* Diagnosis Fatty liver Other chronic nonalcoholic liver disease documented in this encounter [facility] note* Diagnosis Encounter for wellness examination in adult- Primary Advance directive discussed with patient Morbid obesity (CMS/HCC) Morbid obesity Adult BMI 45.0-49.9 kg/sq m (CMS/HCC) Glucose intolerance (impaired glucose tolerance) Impaired glucose tolerance test Mixed hyperlipidemia (CMS/HCC) Mixed hyperlipidemia Primary hypertension (CMS/HCC) Unspecified essential hypertension Menopausal and female climacteric states Osteoporosis screening Special screening for osteoporosis Encounter for follow-up examination after completed treatment for conditions other than malignant neoplasm Screening mammogram for breast cancer [facility] Diagnosis Mixed dyslipidemia (CMS/HCC) [facility] Diagnosis Pre-diabetes- Primary Other abnormal glucose Restless leg syndrome Restless legs syndrome (RLS) Mixed dyslipidemia (CMS/HCC) [facility] Diagnosis Well woman exam with routine gynecological exam Routine gynecological examination Yeast infection of the skin Candidiasis of skin and nails [facility] - Reported* Type Description Date Medical History Unspecified essential hypertensi on Medical History Hypercholesterolemia Medical History Depression with anxiety Surgical History C/Section 2005 Surgical History Bilateral knee replacement 2012 Surgical History cholecystectomy Surgical History wisdom teeth Surgical History cyst removal Hospitalization History See past surgical hx [facility] Other Reason for visit NarrativePT HERE REQ OF DR. ALBA FOR ELEVATED LIVER ENZYMES, (referral note received)[facility] Other Summary Purpose Family History No Family History Records FoundNo Family History Records FoundNo Family History Records FoundNo Family History Records FoundNo Family History Records Found Advance Directives No Advanced Directives Records FoundNo Advanced Directives Records FoundNo Advanced Directives Records FoundNo Advanced Directives Records FoundNo Advanced Directives Records Found Reason for Referral Specialty Diagnoses / Procedures Referred By Contac t Referred To Contact Nutrition Diagnoses Fatty liver Procedures CONSULT TO NUTRITION THERAPY MEDICAL NUTRITION ASSMT&IVNTJ INDIV EACH 15 ND MEDICAL NUTRITION ASSMT&IVNTJ INDIV EACH 15 ND MEDICAL NUTRITION ASSMT&IVNTJ INDIV EACH 15 ND MEDICAL NUTRITION ASSMT&IVNTJ INDIV EACH 15 ND Radha Abdul MD [address] [address] Referral ID Status Reason Start Date Expiration Date Visits Requested Visits Authorized [id number] Authorized PCP Requested Referral 10/30/2022 01/28/2023 1 1 Additional Source Comments INFORMATION SOURCE (unrecogn ized section and content) DATE CREATED AUTHOR 12/24/2019 [facility] DATE CREATED AUTHOR AUTHOR'S ORGANIZ ATION 11/14/2021 [facility] DATE CREATED AUTHOR AUTHOR'S ORGANIZ ATION 03/07/2022 [facility] DATE CREATED AUTHOR AUTHOR'S ORGANIZ ATION 12/06/2022 [facility] DATE CREATED AUTHOR AUTHOR'S ORGANIZ ATION 03/14/2024 [facility] EPIC REASON FOR VISIT (unrecogniz ed section and content) Reason Comments New Patient Arthritis in hands Joint Pain Reason Comments New Patient Consult for fatty li kathy Specialty Diagnoses / Procedures Referred By Contact Referred To Contact Gastroenterology / GASTROENTEROLOGY Diagnoses Encounter for follow-up examination after completed treatment for conditions other than malignant neoplasm Fatty liver Procedures OFFICE/OUTPATIENT ESTABLISHED MOD MDM 30-39 MIN NEW DDI PATIENT Mike Saeed, DO [address] [place] [address] Radha Abdul MD [address] [place] [id number] Referral ID Status Reason Start Date Expiration Date Visits Re quested Visits Authorized [id number] Denied 10/30/2022 04/27/2023 1 0 Reason Comments Patient Education Assessment Specialty Diagnoses / Procedures Referred By Contac t Referred To Contact Nutrition Diagnoses Fatty liver Procedures CONSULT TO NUTRITION THERAPY MEDICAL NUTRITION ASSMT&IVNTJ INDIV EACH 15 ND MEDICAL NUTRITION ASSMT&IVNTJ INDIV EACH 15 ND MEDICAL NUTRITION ASSMT&IVNTJ INDIV EACH 15 ND MEDICAL NUTRITION ASSMT&IVNTJ INDIV EACH 15 ND Radha Abdul MD [address] [place] [address] Referral ID Status Reason Start Date Expiration Date V isits Requested Visits Authorized [id number] Closed PCP Requested Referral 10/30/2022 01/28/2023 1 1 Reason Comments Annual Exam Reason Comments Med Change Request Reason Comments Results Reason Comments Well Women Visit Source Comments (unrecognize d section and content) In the event this informatio n is protected by the Federal Confidentiality of Alcohol and Drug Abuse Patient Records regulations: The Federal rules restrict any use of the information to criminally investigate or prosecute any alcohol or drug abuse patient.[facility] the event this information is protected by the Federal Confidentiality of Alcohol and Drug Abuse Patient Records regulations: The Federal rules restrict any use of the information to criminally investigate or prosecute any alcohol or drug abuse patient.[facility] the event this information is protected by the Federal Confidentiality of Alcohol and Drug Abuse Patient Records regulations: The Federal rules restrict any use of the information to criminally investigate or prosecute any alcohol or drug abuse patient.[facility] Care Teams (unrecognized sec tion and content) Manager Assembly Relationship Specialty Start Date End Date Ronak Flores PCP - General Internal Medicine 08/26/12 Manager Assembly Relationship Specialty Start Date End Date Ronak Flores PCP - General Internal Medicine 08/26/12 Manager Assembly Relationship Specialty Start Date End Date Ronak Flores PCP - General Internal Medicine 08/26/[address] [place] [address] Registered Dietitian Nutrition 12/05/22 Manager Assembly Relationship Specialty Start Date End Date Enrique Alba MD (Fax) PCP - General Family Medicine 09/16/22 Manager Assembly Relationship Specialty Start Date End Date Enrique Alba MD (Fax) PCP - General Family Medicine 09/16/22 Manager Assembly Relationship Specialty Start Date End Date Enrique Alba MD (Fax) PCP - General Family [facility] 09/16/22 Manager Assembly Relationship Specialty Start Date End Date Enrique Alba MD (Fax) PCP - General Family [facility] 09/16/22 Manager Assembly Relationship Specialty Start Date End Date Enrique Alba MD (Fax) PCP - General Family [facility] 09/16/22 Manager Assembly Relationship Specialty Start Date End Date Enrique Alba MD (Fax) PCP [facility] Family [facility] 09/16/22 FOR RECORDS PERTAINING TO PATIENTS WHO ARE OR HAVE BEEN ENROLLED IN A CHEMICAL DEPENDENCY/SUBSTANCEABUSE PROGRAM, SOME INFORMATION MAY BE OMITTED. This clinical summary was aggregated from multiple sources. Caution should be exercised in using it in the provision of clinical care. This summary normalizes information from multiple sources, and as a consequence, information in this document may materially change the coding, format and clinical context of patient data. In addition, data may be omitted in some cases. CLINICAL DECISIONS SHOULD BE BASED ON THE PRIMARY CLINICAL RECORDS. [email or web address]. provides no warranty or guarantee of the accuracy or completeness of information in this document.
== END 2024-03-29 20:46 | disposition home or self-care (01) ==
LOC: LAB 20:45
PROVIDERS: PCP Family Medicine; Visit Provider Physician Assistant
DX: Z01.419 Encounter for gynecological examination (general) (routine) without abnormal findings (principal)
CPT/HCPCS: 87624; 88175

== ENCOUNTER 2024-09-03 07:55 | Outpatient (OUT) | payer OTHER, SELFPAY | END 2024-09-03 07:56 | disposition home or self-care (01) | LOC: CARD 07:57 | PROVIDERS: PCP Family Medicine; Visit Provider Family Medicine | DX: R00.2 Palpitations (principal); R00.0 Tachycardia, unspecified | CPT/HCPCS: 93242 ==

== ENCOUNTER 2024-10-27 07:08 | Outpatient (OUT) | payer OTHER, SELFPAY ==
--- OUTSIDE RECORDS SUMMARY | 2024-10-27 07:12 | XMS_ITS | Encounter Summary ---
Author Organization [facility] Address [address] [place] [address] Care Team Providers Care Hand Crown Pouncer Name Role Phone Mark Ronak Valentino Primary Care Provider Taylor Mejia RD Unavailable Source Comments In the event this information is protected by the Federal Confidentiality of Alcohol and Drug AbusePatient Records regulations: The Federal rules restrict any use of the information to criminally investigate or prosecute any alcohol or drug abuse patient.[facility] Encounter Details Date Type Department Care Team (Late st Contact Info) Description 05/18/2013 Patient Msg Medical Records [address] [place] [address] Provider, Cc RE: Appointment Cancellation Request Social History Tobacco Use Types Packs/Day Years Used Date Smoking Tobacco: Never Smokeless Tobacco: Never Alcohol Use Standard Drinks/Week Comments No 0 (1 standard drink = 0.6 oz pur e alcohol) Comments No Sex and Gender Information Value Date Recorded Sex Assigned at Not on file Legal Sex Female 8:03 AM EST Gender Identity Not on file Sexual Orientation Not on file documented as of this encounter Plan of Treatment Not on file documented as of this encounter Visit Diagnoses Not on filedocumented in this encounter Care Teams Hand Crown Pouncer Relationship Specialty Start Date End Date Ronak Flores PCP - General Internal Medicine 08/26/[address] [place] [address] [place] [id number] Registered Dietitian Nutrition 12/05/22 documented as of this encounter
--- OUTSIDE RECORDS SUMMARY | 2024-10-27 07:12 | XMS_ITS | Encounter Summary ---
Author Organization [facility] Address [address] [place] [address] Care Team Providers Care Train Attendant Name Role Phone Enrique Burgos MD Primary Care Provider Encounter Details Date Type Department Care Team (Late st Contact Info) Description 04/09/2023 Orders Only [facility] [address] [place] [address] Enrique Burgos MD [address] [place] [address] [address] [place] [address] Social History Tobacco Use Types Packs/Day Years Used Date Smoking Tobacco: Never Smokeless Tobacco: Never Alcohol Use Standard Drinks/Week Comments Never 0 (1 standard drink = 0.6 oz pure alcohol) Caffeine intake: 2-3 cups per day Humiliation, Afraid, Rape, and Kick questionnair e Answer Date Recorded Within the last year, have y ou been afraid of your partner or ex-partner? No 09/18/2022 Within the last year, have y ou been humiliated or emotionally abused in other ways by your partner or ex-partner? No Within the last year, have y ou been kicked, hit, slapped, or otherwise physically hurt by your partner or ex-partner? No 09/18/2022 Within the last year, have y ou been raped or forced to have any kind of sexual activity by your partner or ex-partner? No 09/18/2022 Social Connection and Isolat ion Panel [NHANES] Answer Date Recorded In a typical week, how many times do you talk on the phone with family, friends, or neighbors? Three times a week 09/18/2022 How often do you get togethe r with friends or relatives? Once a week 09/18/2022 How often do you attend [facility] or evangelical services? More than 4 times per year 09/18/2022 Do you belong to any clubs o r organizations such as spiritism groups, unions, fraternal or athletic groups, or school groups? No 09/18/2022 How often do you attend meet ings of the clubs or organizations you belong to? Never 09/18/2022 Are you , , di vorced, , never , or living with a partner? 09/18/2022 AUDIT-C Answer Date Recorded Q1: How often do you have a drink containing alcohol? Never 09/18/2022 Q2: How many drinks containi ng alcohol do you have on a typical day when you are drinking? Patient does not drink Q3: How often do you have si x or more drinks on one occasion? Never 09/18/2022 Overall Financial Resource Strain (CARDIA) Answe r Date Recorded How hard is it for you to pa y for the very basics like food, housing, medical care, and heating? Not hard at all 09/18/2022 PHQ-2 Answer Date Recorded Patient Health Questionnaire-2 Score 0 11/14/2022 [facility] - Occupational Stress Questionnaire Answer Date Recorded Do you feel stress - tense, restless, nervous, or anxious, or unable to sleep at night because your mind is troubled all the time - these days? Very much 09/18/2022 Exercise Vital Sign Answer Date Recorde d On average, how many days pe r week do you engage in moderate to strenuous exercise (like a brisk walk)? 3 days 09/18/2022 On average, how many minutes do you engage in exercise at this level? 30 min 09/18/2022 Hunger Vital Sign Answer Date Recorded Within the past 12 months, y ou worried that your food would run out before you got the money to buy more. Never true 09/19/19 23 Within the past 12 months, t he food you bought just didn't last and you didn't have money to get more. Never true 09/18/2022 PRAPARE - Transportation Answer Date Re corded In the past 12 months, has l ack of transportation kept you from medical appointments or from getting medications? No 08/27 In the past 12 months, has l ack of transportation kept you from meetings, work, or from getting things needed for daily living? No 09/18/2022 Housing Stability Vital Sign Answer Jules e Recorded In the last 12 months, was t here a time when you were not able to pay the mortgage or rent on time? No 09/18/2022 In the last 12 months, how many places have you lived? 1 09/18/2022 In the last 12 months, was t here a time when you did not have a steady place to sleep or slept in a halfway (including now)? No 09/18/2022 Education Answer Date Recorded What is the highest level of school you have completed or the highest degree you have received? 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 No / Unsure 04/01/2023 12:29 PM EST documented as of this encounter Plan of Treatment Upcoming Encounters Date Type Department Care Team (Late st Contact Info) Description 04/04/2025 3:00 PM EST Office Visit [facility] [address] [place] [address] Jnaey Savage PA [address] [place] [address] documented as of this encounter Visit Diagnoses Not on filedocumented in this encounter Care Teams Train Attendant Relationship Specialty Start Date End Date Enrique Burgos MD PCP - General Family Medicine 09/16/22 documented as of this encounter
--- OUTSIDE RECORDS SUMMARY | 2024-10-27 07:12 | XMS_ITS | Encounter Summary ---
Author Organization [facility] Address [address] [place] [address] Care Team Providers Care Prototype Special Build Name Role Phone Enrique Burgos MD Primary Care Provider Encounter Details Date Type Department Care Team (Late st Contact Info) Description 01/28/2023 Abstract [facility] [address] [place] [address] Enrique Burgos MD [address] [place] [address] [address] [place] [address] Social History Tobacco Use Types Packs/Day Years [...] week 09/18/2022 How often do you attend [facility] or anabaptism services? More than 4 times per year 09/18/2022 Do you belong to any clubs o r organizations such as lutheran groups, unions, fraternal or athletic groups, or [...] Recorded Patient Health Questionnaire-2 Score 0 11/14/2022 [facility] - Occupational Stress [...] place to sleep or slept in a long term (including now)? 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 No / Unsure 01/28/2023 9:37 AM EDT documented as of this encounter Plan of Treatment Upcoming Encounters Date Type Department Care Team (Late st Contact Info) Description 04/04/2025 3:00 PM EST Office Visit [facility] [address] [facility] [address] Jaeny Savage PA [address] [place] [address] documented as of this encounter Visit Diagnoses Not on filedocumented in this encounter Care Teams Prototype Special Build Relationship Specialty Start Date End Date Enrique Burgos MD PCP - General Family Medicine 09/16/22 documented as of this encounter
--- OUTSIDE RECORDS SUMMARY | 2024-10-27 07:12 | XMS_ITS | Clinical Summary ---
Author Organization [facility] Address [address] [place] [address] Care Team Providers Care Cane Loader Name Role Phone Enrique Burgos MD Primary Care Provider Allergies Active Allergy Reactions Criticality Noted Date Comments Duloxetine Hcl 10/15/2021 Other Reaction(s): severe drowsiness Metformin GI intolerance 03/11/2024 Medications diclofenac sodium 3 % gel Apply 1 application topically every 6 (six) hours. 2 Active melatonin 10 MG tablet Take 1 tablet by mouth at bedtime. Active albuterol HFA (ProAir HFA) 90 mcg/act inhalerIndicatio ns:Bronchitis Inhale 2 puffs every 6 (six) hours if needed for wheezing 18 g 3 4 Active metFORMIN XR (Glucophage-XR) 750 MG 24 hr tabletIndication s:Pre-diabetes Take 1 tablet (750 mg) by mouth in the morning and 1 tablet (750 mg) before bedtime. Do not crush, chew, or split.. 60 tablet 5 Active Additional Information Patient not taking.Reported on 09/01/2024 gabapentin (Neurontin) 300 MG capsuleIndicatio ns:Restless leg syndrome Take 1 capsule (300 mg) by mouth at bedtime 90 capsule 1 5 01/30/20 25 Active rOPINIRole (Requip) 0.5 MG tabletIndication s:Restless Leg Syndrome One tablet at bedtime 90 tablet 1 Active fenofibrate (Triglide) 160 MG tabletIndication s:Mixed dyslipidemia Take 1 tablet (160 mg) by mouth Daily 90 tablet 1 5 01/30/20 25 Active Active Problems Problem Noted Date Diagnosed Date Menopausal symptoms 05/12/2024 Hot flashes 05/12/2024 Pre-diabetes 03/20/2024 Restless leg syndrome 08/14/2023 Adult BMI 45.0-49.9 kg/sq m 05/14/2023 Arthritis of left hand 09/17/2022 Arthritis of right hand 09/17/2022 Chronic fatigue 09/17/2022 Dependence on other enabling machine 09/17/2022 ESS (euthyroid sick syndrome) 09/17/2022 Fatty liver disease, nonalcoholic 09/17/2022 Hepatitis 09/17/2022 HTN (hypertension) 09/17/2022 Insomnia due to other mental disorder 09/17/2022 Mixed dyslipidemia 09/17/2022 Morbid obesity 09/17/2022 Obstructive sleep apnea hypopnea, moderate 09/17 Osteoarthritis of joint of toe of right foot Other chronic pain 09/17/2022 Overactive bladder 09/17/2022 Primary osteoarthritis, right hand 09/17/2022 Recurrent major depressive disorder, in partial remission 09/17/2022 Sleep disorder 09/17/2022 Status post bilateral knee replacements 09/18/19 Enuresis 09/17/2022 Urinary incontinence 09/17/2022 Resolved Problems Problem Noted Date Diagnosed Date Resolved Date Glucose intolerance (impaire d glucose tolerance) 09/17/2022 08/02/2024 Gynecological disease 09/17/20222023 Pain in female genitalia on intercourse 09/17/2022 02/25/2024 Piriformis syndrome of left side 09/17/2022 02/25/2024 Encounters Date Type Department Care Team Description 09/01/2024 1:45 PM EDT Office Visit [facility] [address] [place] [address] Enrique Burgos MD Palpitations (Primary Dx); Tachycardia 09/01/2024 Bamboo flowsheet [facility] [address] [place] [address] Enrique Burgos MD 09/01/2024 Travel 08/31/2024 Travel 08/16/2024 Orders Only [facility] [address] [facility] [address] [place] [address] Rachel Imelda, MA Screening mammogram for breast cancer; Menopausal and female climacteric states; Osteoporosis screening; Encounter for follow-up examination after completed treatment for conditions other than malignant neoplasm 08/02/2024 3:30 PM EDT Office Visit [facility] [address] [facility] [address] [place] [address] Enrique Burgos MD Restless leg syndrome (Primary Dx); Other chronic pain; Insomnia due to other mental disorder; Recurrent major depressive disorder, in partial remission ; Primary hypertension ; Mixed dyslipidemia ; Pre-diabetes; Morbid obesity ([facility]); Adult BMI 45.0-49.9 kg/sq m ([facility]) 08/02/2024 Bamboo flowsheet [facility] [address] [place] [place] [address] [place] [address] Enrique Burgos MD 08/02/2024 Travel 07/28/2024 Telephone [facility] [address] [facility] [address] [place] [address] Rachel July, MA Care Coordination from Last 3 Months Immunizations Immunization Administration Dates Next Due Influenza Whole 03/17/2013 Influenza, High Dose Seasona l, Preservative Free 02/01/2020 Influenza, Injectable, MDCK, preservative free 01/05/2024 Influenza, injectable, MDCK, preservative free, quadrivalent 01/20/2023,01/15/2022,01/21/2019 Influenza, injectable, MDCK, quadrivalent 01/22/2018 Influenza, injectable, quadr ivalent, preservative free 01/27/2021,02/02/2020,01/30/2019,2017,01/28/2017,03/17/2016,01/09/2015 Influenza, seasonal, injecta ble, preservative free 01/18/2017,02/18/2015 SARS-COV-2 (COVID-19) vaccin e, mRNA, spike protein, LNP, bivalent, preservative free, 30 mcg/0.3 mL dose, joyce-sucrose formulation 01/15/2022 Zoster, Recombinant 02/10/2021,12/02/2020 Family History * Patient is adopted Medical History Relation Name Comments Cancer Mother Angélica Garcia Relation Name Status Comments Daughter Alive Father Alive Mother Angélica Garcia Social History Tobacco Use Types Packs/Day Years Used Date Smoking Tobacco: Never Smokeless Tobacco: Never Tobacco Cessation:Counseling Given: Yes Alcohol Use Standard Drinks/Week Comments Never 0 (1 standard drink = 0.6 oz pure alcohol) Caffeine intake: 2-3 cups per day B1300 Health Literacy Answer Date Recor ded How often do you need to hav e someone help you when you read instructions, pamphlets, or other written material from your doctor or pharmacy? Never 12/15/2023 Humiliation, Afraid, Rape, and Kick questionnair e [...] the phone with family, friends, or neighbors? Once a week 12/15/2023 How often do you get togethe r with friends or relatives? Once a week 12/15/2023 How often do you attend chur ch or gnosticist services? More than 4 times per year 12/15/2023 Do you belong to any clubs o r organizations such as confucianism groups, unions, fraternal or athletic groups, or school groups? No 12/15/2023 How often do you attend meet ings of the clubs or organizations you belong to? Never 12/15/2023 Are you , , di vorced, , never , or living with a partner? 12/15/2023 AUDIT-C Answer Date Recorded Q1: How often do you have a drink containing alcohol? Never 12/15/2023 Q2: How many drinks containi ng alcohol do you have on a typical day when you are drinking? Patient does not drink Q3: How often do you have si x or more drinks on one occasion? Never 12/15/2023 Overall Financial Resource Strain (CARDIA) Answe r Date Recorded How hard is it for you to pa y for the very basics like food, housing, medical care, and heating? Not hard at all 12/15/2023 PHQ-2 Answer Date Recorded Patient Health Questionnaire-2 Score 0 08/02/2024 [facility] - Occupational Stress Questionnaire Answer Date Recorded Do you feel stress - tense, restless, nervous, or anxious, or unable to sleep at night because your mind is troubled all the time - these days? Very much 12/15/2023 Exercise Vital Sign Answer Date Recorde d On average, how many days pe r week do you engage in moderate to strenuous exercise (like a brisk walk)? 0 days 12/15/2023 On average, how many minutes do you engage in exercise at this level? 0 min 12/15/2023 Hunger Vital Sign Answer Date Recorded Within the past 12 months, y ou worried that your food would run out before you got the money to buy more. Never true 12/15/19 24 Within the past 12 months, t he food you bought just didn't last and you didn't have money to get more. Never true 12/15/2023 PRAPARE - Transportation Answer Date Re corded In the past 12 months, has l ack of transportation kept you from medical appointments or from getting medications? No 11/26 In the past 12 months, has l ack of transportation kept you from meetings, work, or from getting things needed for daily living? No 12/15/2023 Housing Stability Vital Sign Answer Jules e [...] place to sleep or slept in a retirement (including now)? No 09/18/2022 Housing Stability Vital Sign Answer Jules e Recorded In the last 12 months, was t here a time when you were not able to pay the mortgage or rent on time? No 12/15/2023 In the past 12 months, how m any times have you moved where you were living? 0 12/15/2023 At any time in the past 12 m [facility], were you homeless or living in a retirement (including now)? 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 Not on file Not on file Not on file Last Filed Vital Signs Vital Sign Reading Time Taken Comments Blood Pressure 136/80 08/02/2024 3:24 PM EDT Pulse 77 09/01/2024 1:28 PM EDT Temperature 36.2 C (97.2 F) 06/15/2024 6:15 PM EST Respiratory Rate - - Oxygen Saturation 97% 09/01/2024 1:28 PM EDT Inhaled Oxygen Concentration - - Weight 125 kg (275 lb) 09/01/2024 1:28 PM EDT Height 160 cm (5' 3 ) 09/01/2024 1:28 PM EDT Body Mass Index 48.71 09/01/2024 1:28 PM EDT Plan of Treatment Upcoming Encounters Date Type Department Care Team (Late st Contact Info) Description 04/04/2025 3:00 PM EST Office Visit [facility] [address] [phone] Janey Savage PA [address] [facility] [address] [address] Health Maintenance Due Date Last Done Comments CT Colonography 1970 Colonoscopy 1970 FIT 1970 FOBT 1970 Sigmoidoscopy 1970 HPV/Cotest 03/18/2024 03/18/2019 Influenza Vaccine (#1) 2024 , 01/20/2023, 01/15/2022, Additional history exists Mammogram 03/05/2025 03/05/2024, 0704/2021, 07/12/2020, Additional history exists Colorectal Cancer Screening 09/18/2026 FIT-DNA 09/18/2026 09/19/2023 Cervical Cancer Screening 03/29/2027 Pap Smear 03/29/2027 03/29/2024, 11/01/2022 Procedures Procedure Name Priority Date/Time Associated Diagnosis Comments PAP SMEAR Routine 03/29/2024 12:00 AM EST MM TOMOSYNTHESIS SCREENING BI 03/05/2024 11:04 AM EST LAB COLOGUARD COLON CANCER SCREEN Routine 09/19/2023 12:30 PM EDT Screening for colon cancer THINPREP TIS PAP REFLEX HPV MRNA E6/E7 (80436) Routine 03/18/2019 from Last 3 Months or Most Recently Relevant to Health Maintenance Results * Pap Smear (03/29/2024 12:00 AM EST) Swab Cervical swab / Unknown Bonilla Nurse [facility] CYTOLOGY ORDERABLES Final Result EXTERNAL LAB * MM TOMOSYNTHESIS SCREENING BI (03/05/2024 11:04 AM EST) Anatomical Region Laterality Modality Other 03/05/2024 11:0 4 AM EST Narrative 03/05/2024 11:05 [place] [address] Mammography Report Signed Patient: Naima Hernandez MR#: [id number] : 1970 Acct:[id number] Age/Sex: 53 / F ADM Date: 03/05/24 Loc: MAMMO Attending Dr: ENRIQUE BURGOS Ordering Physician: ENRIQUE BURGOS Results: Date of Service: 03/05/24 Follow Up: Procedure(s): MM tomosynthesis screening BI Accession Number(s): [id number] cc: ENRIQUE BURGOS Patient Name: NAIMA HERNANDEZ MR#: [id number] : 1970 Exam Date: 03/05/2024 Ordering Doctor: DR ENRIQUE BURGOS . RADIOLOGY REPORT PROCEDURE: MM TOMOSYNTHESIS SCREENING BI COMPARISON: MG MAMM SCREEN 3D RONEN CAD, 11/05/2021. MAMMO RONEN SCREEN, 07/12/2020. MG MAMM SCREEN RONEN W CAD, 05/14/2019. MG MAMM RONEN DIAG W CAD DIG, 05/12/2013. INDICATIONS: Screening Calculator Name NCI Breast Cancer Risk Assessment Tool 5 Year Breast Cancer Risk 1.80% Lifetime Breast Cancer Risk 13.50% Personal Breast Cancer No Personal Ovarian Cancer No Treatments None Family Cancers None LOCATION: [facility] BREAST COMPOSITION: There are scattered areas of fibroglandular density. FINDINGS: DIAGNOSTIC CATEGORY 1--NEGATIVE. RIGHT BREAST: No significant suspicious finding. No significant change has occurred. LEFT BREAST: No significant suspicious finding. No significant change has occurred. RECOMMENDATIONS: ROUTINE MAMMOGRAM AND CLINICAL EVALUATION IN 12 MONTHS. PLEASE NOTE: A NORMAL MAMMOGRAM DOES NOT EXCLUDE THE POSSIBILITY OF BREAST CANCER. A CLINICALLY SUSPICIOUS PALPABLE LUMP SHOULD BE BIOPSIED. Dictated by: Vikas Negron M.D. on 03/05/2024 at 11:03 Approved by: Vikas Negron M.D. on 03/05/2024 at 11:04 Dictated By: Vikas Negron M.D. Signed By: 03/05/24 1105 DD/ 1104 TD/TT: Insulation Professional: Procedure Note Radiology, Radiologist, MD - 03/05/2024 [place] [address] Mammography Report Signed Patient: Naima Hernandez MMR#: [id number] : 1970Acct:[id number] Age/Sex: 53 / FADM Date: 03/05/24 Loc: MAMMO Attending Dr: ENRIQUE BURGOS Ordering Physician: ENRIQUE BURGOSResults: Date of Service: 03/05/24Follow Up: Procedure(s): MM tomosynthesis screening BI Accession Number(s): [id number] cc: ENRIQUE BURGOS Patient Name: NAIMA HERNANDEZ MR#: [id number] : 1970 Exam Date: 03/05/2024 Ordering Doctor: DR ENRIQUE BURGOS . RADIOLOGY REPORT PROCEDURE: MM TOMOSYNTHESIS SCREENING BI COMPARISON: MG MAMM SCREEN 3D RONEN CAD, 11/05/2021. MAMMO RONEN SCREEN, 07/12/2020. MG MAMM SCREEN RONEN W CAD, 05/14/2019. MG MAMM RONEN DIAG W CADDIG, 05/12/2013. INDICATIONS: Screening Calculator Name NCI Breast Cancer Risk Assessment Tool 5 Year Breast Cancer Risk 1.80% Lifetime Breast Cancer Risk 13.50% Personal Breast Cancer No Personal Ovarian Cancer No Treatments None Family Cancers None LOCATION: [facility] BREAST COMPOSITION: There are scattered areas of fibroglandulardensity. FINDINGS: DIAGNOSTIC CATEGORY 1--NEGATIVE. RIGHT BREAST: No significant suspicious finding. No significant changehas occurred. LEFT BREAST: No significant suspicious finding. No significant changehas occurred. RECOMMENDATIONS: ROUTINE MAMMOGRAM AND CLINICAL EVALUATION IN 12 MONTHS. PLEASE NOTE: A NORMAL MAMMOGRAM DOES NOT EXCLUDE THE POSSIBILITY OFBREAST CANCER. A CLINICALLY SUSPICIOUS PALPABLE LUMP SHOULD BE BIOPSIED. Dictated by: Vikas Negron M.D. on 03/05/2024 at 11:03 Approved by: Vikas Negron M.D. on 03/05/2024 at 11:04 Dictated By: Vikas Negron M.D. Signed By:03/05/24 1105 DD/ 03 TD/TT: Insulation Professional: Enrique Burgos MD [facility] Final Resu lt * Cologuard® colon cancer screening (09/19/2023 12:30 PM EDT) NONINV COLON CA DNA+OCC BLD SCRN STL-IMP Negative Negative 09/25/2023 9:11 AM EDT [facility] (CLIA #:[id number]) Comment: NEGATIVE TEST RESULT. A negative Cologuard result indicates a low likelihood that a colorectal cancer (CRC) or advanced adenoma (adenomatous polyps with more advanced pre-malignant features) is present. The chance that a person with a negative Cologuard test has a colorectal cancer is less than 1 in 1500 (negative predictive value >99.9%) or has an advanced adenoma is less than 5.3% (negative predictive value 94.7%). These data are based on a prospective cross-sectional study of 10,000 individuals at average risk for colorectal cancer who were screened with both Cologuard and colonoscopy. (Jonel Boyd al, N Engl J Med 2014;370(14):7422-8289) The normal value (reference range) for this assay is negative. COLOGUARD RE-SCREENING RECOMMENDATION: Periodic colorectal cancer screening is an important part of preventive healthcare for asymptomatic individuals at average risk for colorectal cancer. Following a negative Cologuard result, the [place] Cancer Society and U.S. Multi-Society Task Force screening guidelines recommend a Cologuard re-screening interval of 3 years. References: [place] Cancer Society Guideline for Colorectal Cancer Screening: https://www.cancer.org/cancer/xipcs-bujinz-skyxlx/psddigcvc-ryxbwipem-ygxxlye/ac s-rec ommendations.html.; Dave DK, [place] CR, Hernesto FelizK, Colorectal Cancer Screening: Recommendations for Physicians and Patients from the U.S. Multi-Society Task Force on Colorectal Cancer Screening , Am J Gastroenterology 2017; 112:2757-4568. TEST DESCRIPTION: Composite algorithmic analysis of stool DNA-biomarkers with hemoglobin immunoassay. Quantitative values of individual biomarkers are not reportable and are not associated with individual biomarker result reference ranges. Cologuard is intended for colorectal cancer screening of adults of either sex, 45 years or older, who are at average-risk for colorectal cancer (CRC). Cologuard has been approved for use by the U.S. FDA. The performance of Cologuard was established in a cross sectional study of average-risk adults aged 50-84. Cologuard performance in patients ages 45 to 49 years was estimated by sub-group analysis of near-age groups. Colonoscopies performed for a positive result may find as the most clinically significant lesion: colorectal cancer [4.0%], advanced adenoma (including sessile serrated polyps greater than or equal to 1cm diameter) [20%] or non- advanced adenoma [31%]; or no colorectal neoplasia [45%]. These estimates are derived from a prospective cross-sectional screening study of 10,000 individuals at average risk for colorectal cancer who were screened with both Cologuard and colonoscopy. (Jonel Boyd al, N Engl J Med 2014;370(14):1205-6174.) Cologuard may produce a false negative or false positive result (no colorectal cancer or precancerous polyp present at colonoscopy follow up). A negative Cologuard test result does not guarantee the absence of CRC or advanced adenoma (pre-cancer). The current Cologuard screening interval is every 3 years. ([place] Cancer Society and U.S. Multi-Society Task Force). Cologuard performance data in a 10,000 patient pivotal study using colonoscopy as the reference method can be accessed at the following location: www.[facility]/results. Additional description of the Cologuard test process, warnings and precautions can be found at www.[employer]. Stool specimen (specimen) 09/19/2023 12:30 PM EDT 09/20/2023 7:56 AM EDT Enrique Burgos MD LAB MOLECULAR DIAGNOSTICS OR DERABLES Final Result [facility] (CLIA #:[id number]) [address] [address], * THINPREP TIS PAP REFLEX HPV MRNA E6/E7 (16376) (03/18/2019) CLINICAL INFORMATION: None given [facility] LMP: SUNIL [facility] PRE[facility]. PAP: 02/25/18 [facility]. BX: None given [facility] SOURCE: Cervix, Endocervix [facility] STATEMENT OF ADEQUACY: SEE COMMENT [facility] Comment: Satisfactory for evaluation. Endocervical/transformation zone component present. INTERPRETATION /RESULT: Negative for intraepithelial lesion or malignancy. [facility] COMMENT: This Pap test has been evaluated with computer assisted technology. [facility] CYTOTECHNOLOGI ST: SEE COMMENT [facility] Comment: [facility], CT(ASCP) CT screening location: [facility], [address] [place] [address]. COMMENT SEE COMMENT [facility] Comment: EXPLANATORY NOTE: The Pap is a screening test for cervical cancer. It is not a diagnostic test and is subject to false negative and false positive results. It is most reliable when a satisfactory sample, regularly obtained, is submitted with relevant clinical findings and history, and when the Pap result is evaluated along with historic and current clinical information. 03/18/2019 Pat Alfred DO [facility] Final Resul t Performing Organization Address City/State/[facility] Co de Phone Number [facility] from Last 3 Months or Most Recently Relevant to Health Maintenance Insurance [employer] Care Teams Cane Loader Relationship Specialty Start Date End Date Enrique Burgos MD PCP - General Family Medicine 09/16/22
--- OUTSIDE RECORDS SUMMARY | 2024-10-27 07:12 | XMS_ITS | Encounter Summary ---
Author Organization [facility] Address [address] [place] [address] Care Team Providers Care Process Mold Technician Name Role Phone Enrique Burgos MD Primary Care Provider [phone] Encounter Details Date Type Department Care Team (Late st Contact Info) Description 08/16/2024 Orders Only [facility] [address] [place] [address] RachelJuly, Screening mammogram for breast cancer; Menopausal and female climacteric states; Osteoporosis screening; Encounter for follow-up examination after completed treatment for conditions other than malignant neoplasm Social History Tobacco Use Types Packs/Day Years [...] 12/15/2023 How often do you attend chur or hindu services? More than 4 times per year 12/15/2023 Do you belong to any clubs o r organizations such as yazidism groups, unions, fraternal or athletic groups, or [...] Recorded Patient Health Questionnaire-2 Score 0 08/02/2024 [facility] - Occupational Stress Questionnaire Answer Date [...] place to sleep or slept in a usp (including now)? No 09/18/2022 Housing Stability Vital Sign Answer Jules e Recorded In the last 12 months, was t here a time when you were not able to pay the mortgage or rent on time? No 12/15/2023 In the past 12 months, how m any times have you moved where you were living? 0 12/15/2023 At any time in the past 12 m [facility], were you homeless or living in a usp (including now)? 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 Not on file Not on file Not on file documented as of this encounter Plan of Treatment Upcoming Encounters Date Type Department Care Team (Late st Contact Info) Description 04/04/2025 3:00 PM EST Office Visit [facility] [address] [place] [address] Janey Savage PA [address] [place] [address] documented as of this encounter Visit Diagnoses Diagnosis Screening mammogram for breast cancer Menopausal and female climacteric states Osteoporosis screening Special screening for osteoporosis Encounter for follow-up examination after completed treatment for conditions other than malignant neoplasm documented in this encounter Care Teams Process Mold Technician Relationship Specialty Start Date End Date Enrique Burgos MD (Fax) PCP - General Family Medicine 09/16/22 documented as of this encounter
--- OUTSIDE RECORDS SUMMARY | 2024-10-27 07:12 | XMS_ITS | Encounter Summary ---
Author Organization [facility] Address [address] [place] [address] Care Team Providers Care Geothermal Hvac Technician Name Role Phone Enrique Burgos MD Primary Care Provider Reason for Visit * Reason Comments Med Refill Encounter Details Date Type Department Care Team (Late st Contact Info) Description 01/05/2023 Refill [facility] [address] [place] [address] Enrique Burgos MD [address] [place] [address] [address] [place] [address] Glucose intolerance (impaired glucose tolerance) Social History Tobacco Use Types Packs/Day Years [...] week 09/18/2022 How often do you attend chur or church services? More than 4 times per year 09/18/2022 Do you belong to any clubs o r organizations such as taoism groups, unions, fraternal or athletic groups, or [...] Recorded Patient Health Questionnaire-2 Score 0 11/14/2022 [facility] - Occupational Stress [...] place to sleep or slept in a residential (including now)? 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 [place] [address] documented as of this encounter Visit Diagnoses Diagnosis Glucose intolerance (impaired glucose tolerance) Impaired glucose tolerance test documented in this encounter Care Teams Geothermal Hvac Technician Relationship Specialty Start Date End Date Enrique Burgos MD PCP - General Family Medicine 09/16/22 documented as of this encounter
--- OUTSIDE RECORDS SUMMARY | 2024-10-27 07:12 | XMS_ITS | Clinical Summary ---
Author Organization [facility] tem Address [id number] [address] [place] [address] Care Team Providers Care Frame Bender Name Role Phone Enrique Burgos MD Primary Care Provider [phone] Social History Tobacco Use Types Packs/Day Years Used Date Smoking Tobacco: Never Assessed Childcare Answer Date Recorded Childcare Unknown 05/22/2020 Employment Answer Date Recorded Employment Unknown 05/22/2020 Purpose - Life Answer Date Recorded Purpose and direction in life Unknown Comments No Sex and Gender Information Value Date Recorded Sex Assigned at Not on file Legal Sex Female 6:35 PM EDT Gender Identity Not on file Sexual Orientation Not on file Last Filed Vital Signs Vital Sign Reading Time Taken Comments Blood Pressure - - Pulse - - Temperature - - Respiratory Rate - - Oxygen Saturation - - Inhaled Oxygen Concentration - - Weight 120.2 kg (265 lb) 07/12/2020 7:54 AM EDT Height 160 cm (5' 3 ) 07/12/2020 7:54 AM EDT Body Mass Index 46.94 07/12/2020 7:54 AM EDT Plan of Treatment Health Maintenance Due Date Last Done Comments Depression Screening 1982 Tobacco Screening 1982 Adult BMI Screening 1988 DTaP,Tdap and Td Vaccines (1 - Tdap) 1989 Pap Smear 09/25/1991 Zoster (Shingles) Vaccine (1 of 2) 2020 Influenza Vaccine 12/27/2024 Medical Devices Not on file Insurance [id number] Care Teams Frame Bender Relationship Specialty Start Date End Date Enrique Burgos MD PCP - General Family Medicine 07/12/20
--- OUTSIDE RECORDS SUMMARY | 2024-10-27 07:13 | XMS_ITS | Encounter Summary ---
Author Organization [facility] Address [address] [place] [address] Care Team Providers Care Transistor Tester Name Role Phone Enrique Burgos MD Primary Care Provider [phone] Encounter Details Date Type Department Care Team (Late st Contact Info) Description 03/23/2024 Orders Only [facility] OB [address] [place] [address] Charisse Elmore LPN [address] [facility] [address] [facility] [id number] Social History Tobacco Use Types Packs/Day Years [...] How often do you attend chur or tenriism services? More than 4 times per year 12/15/2023 Do you belong to any clubs o r organizations such as roman catholic groups, unions, fraternal or athletic groups, or [...] Recorded Patient Health Questionnaire-2 Score 0 11/14/2022 [facility] - Occupational Stress Questionnaire Answer Date [...] in a halfway (including now)? No 09/18/2022 Housing Stability Vital Sign Answer Jules e Recorded In the last 12 months, was t here a time when you were not able to pay the mortgage or rent on time? No 12/15/2023 In the past 12 months, how m any times have you moved where you were living? 0 12/15/2023 At any time in the past 12 m [facility], were you homeless or living in a halfway (including now)? 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 file Not on file Not on file documented as of this encounter Plan of Treatment Upcoming Encounters Date Type Department Care Team (Late st Contact Info) Description 04/04/2025 3:00 PM EST Office Visit [facility] [address] [place] [address] Janey Savage PA [address] [place] [address] documented as of this encounter Procedures Procedure Name Priority Date/Time Associated Diagnosis Comments PAP SMEAR Routine 03/29/2024 12:00 AM EST PAP SMEAR Routine 11/01/2022 12:00 AM EDT documented in this encounter Results * Pap Smear (03/29/2024 12:00 AM EST) Swab Cervical swab / Unknown Bonilla Nurse [facility] Ob LAB CYTOLOGY ORDERABLES Final Result Performing Organization Address [facility] Co de Phone Number EXTERNAL LAB * Pap Smear (11/01/2022 12:00 AM EDT) Swab Cervical swab / Unknown Bonilla Nurse [facility] Ob LAB CYTOLOGY ORDERABLES Final Result EXTERNAL LAB documented in this encounter Visit Diagnoses Not on filedocumented in this encounter Care Teams Transistor Tester Relationship Specialty Start Date End Date Enrique Burgos MD PCP - General Family Medicine 09/16/22 documented as of this encounter
--- OUTSIDE RECORDS SUMMARY | 2024-10-27 07:13 | XMS_ITS | Encounter Summary ---
Author Organization [facility] Address [address] [place] [address] Care Team Providers Care Quality Assurance Tester Name Role Phone Mark, Ronak E Primary Care Provider Taylor Mejia RD Unavailable [phone] Source Comments In the event this information is protected by the Federal Confidentiality of Alcohol and Drug AbusePatient Records regulations: The Federal rules restrict any use of the information to criminally investigate or prosecute any alcohol or drug abuse patient.[facility] Encounter Details Date Type Department Care Team (Late st Contact Info) Description 10/30/2022 Patient Msg Urology [address] [place] [address] Provider, Ccf REMINDER TO SCHEDULE APPOINTMENT Social History Tobacco Use Types Packs/Day Years Used Date Smoking Tobacco: Never Smokeless Tobacco: Never Alcohol Use Standard Drinks/Week Comments No 0 (1 standard drink = 0.6 oz pur e alcohol) PHQ-2 Answer Date Recorded PHQ-2 score 2 07/29/2022 Area Deprivation Index Answer Date Luis rded National Score (1-100), lower number is lower ri sk 87 10/30/2022 State Score (1-10), lower number is lower risk 8 10/30/2022 Data from: https://www.neighborhoodatlas.[facility].edu/. Last address used for calculation [address] [facility] 10/30/2022 Comments No Sex and Gender Information Value Date Recorded Sex Assigned at Not on file Legal Sex Female 8:03 AM EST Gender Identity Not on file Sexual Orientation Not on file documented as of this encounter Plan of Treatment Not on file documented as of this encounter Visit Diagnoses Not on filedocumented in this encounter Care Teams Quality Assurance Tester Relationship Specialty Start Date End Date Ronak Flores PCP - General Internal Medicine 08/26/[address] [place] [id number] Registered Dietitian Nutrition 12/05/22 documented as of this encounter
--- OUTSIDE RECORDS SUMMARY | 2024-10-27 07:13 | XMS_ITS | Encounter Summary ---
Author Organization [facility] Address [address] [place] [address] Care Team Providers Care Dental Assistant Name Role Phone Enrique Burgos MD Primary Care Provider [phone] Encounter Details Date Type Department Care Team (Late st Contact Info) Description 03/08/2024 Orders Only [facility] CI FM [address] [place] [address] Enrique Burgos MD [address] [facility] [address] [place] [address] Social History Tobacco Use Types Packs/Day Years [...] How often do you attend chur or catholic services? More than 4 times per year 12/15/2023 Do you belong to any clubs o r organizations such as latter-day groups, unions, fraternal or athletic groups, or [...] Recorded Patient Health Questionnaire-2 Score 0 11/14/2022 [facility] - Occupational Stress Questionnaire Answer Date [...] place to sleep or slept in a snf (including now)? No 09/18/2022 Housing Stability Vital Sign Answer Jules e Recorded In the last 12 months, was t here a time when you were not able to pay the mortgage or rent on time? No 12/15/2023 In the past 12 months, how m any times have you moved where you were living? 0 12/15/2023 At any time in the past 12 m [facility], were you homeless or living in a snf (including now)? 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
--- OUTSIDE RECORDS SUMMARY | 2024-10-27 07:13 | XMS_ITS | Encounter Summary ---
Author Organization [facility] Address [address] [place] [address] Care Team Providers Care Straddle Truck Operator Name Role Phone Enrique Alba MD Primary Care Provider [phone] Encounter Details Date Type Department Care Team (Late st Contact Info) Description 03/05/2024 Clinisync Result Encounter [facility] External Department Unsolicited Enrique Alba MD [address] [place] [address] Social History Tobacco Use Types Packs/Day Years [...] How often do you attend chur or yazidi services? More than 4 times per year 12/15/2023 Do you belong to any clubs o r organizations such as mu-ism groups, unions, fraternal or athletic groups, or [...] Recorded Patient Health Questionnaire-2 Score 0 11/14/2022 [facility] - Occupational Stress [...] place to sleep or slept in a chcf (including now)? No 09/18/2022 Housing Stability Vital Sign Answer Jules e Recorded In the last 12 months, was t here a time when you were not able to pay the mortgage or rent on time? No 12/15/2023 In the past 12 months, how m any times have you moved where you were living? 0 12/15/2023 At any time in the past 12 m [facility], were you homeless or living in a chcf (including now)? 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 on file Not on file Not on file documented as of this encounter Plan of Treatment Upcoming Encounters Date Type Department Care Team (Late st Contact Info) Description 04/04/2025 3:00 PM EST Office Visit [facility] B[facility] OB [address] [place] [address] [place] [phone] Janey Savage PA [address] [place] [address] [place] [address] documented as of this encounter Procedures Procedure Name Priority Date/Time Associated Diagnosis Comments MM TOMOSYNTHESIS SCREENING BI 03/05/2024 11:04 AM EST documented in this encounter Results * MM TOMOSYNTHESIS SCREENING BI (03/05/2024 11:04 AM EST) Anatomical Region Laterality Modality Other 03/05/2024 11:0 4 AM EST Narrative 03/05/2024 11:05 AM EST The [address] [address] Mammography Report Signed Patient: Naima Hernandez MR#: [id number] : 1970 Acct:[id number] Age/Sex: 53 / F ADM Date: 03/05/24 Loc: MAMMO Attending Dr: ENRIQUE ALBA Ordering Physician: ENRIQUE ALBA Results: Date of Service: 03/05/24 Follow Up: Procedure(s): MM tomosynthesis screening BI Accession Number(s): [id number] cc: ENRIQUE ALBA Patient Name: NAIMA HERNANDEZ MR#: [id number] : 1970 Exam Date: 03/05/2024 Ordering Doctor: DR ENRIQUE ALBA . RADIOLOGY REPORT PROCEDURE: MM TOMOSYNTHESIS SCREENING [...] Treatments None Family Cancers None LOCATION: The [facility] BREAST COMPOSITION: There are scattered areas of [...] Signed By: 03/05/24 1105 DD/ 1104 TD/TT: Oral And Maxillofacial Pathologist: Procedure Note Radiology, Radiologist, MD - 03/05/2024 [place] [address] Mammography Report Signed Patient: Naima Hernandez MMR#: [id number] : 1970Acct:[id number] Age/Sex: 53 / FADM Date: 03/05/24 Loc: MAMMO Attending Dr: ENRIQUE ALBA Ordering Physician: ENRIQUE ALBAResults: Date of Service: 03/05/24Follow Up: Procedure(s): MM tomosynthesis screening BI Accession Number(s): [id number] cc: ENRIQUE ALBA Patient Name: NAIMA HERNANDEZ MR#: [id number] : 1970 Exam Date: 03/05/2024 Ordering Doctor: DR ENRIQUE ALBA . RADIOLOGY REPORT PROCEDURE: MM TOMOSYNTHESIS SCREENING [...] Treatments None Family Cancers None LOCATION: The [facility] BREAST COMPOSITION: There are scattered areas of [...] Vikas Negron M.D. Signed By:03/05/24 1105 DD/ 1104 TD/TT: Oral And Maxillofacial Pathologist: us Enrique Alba MD [facility] Final Resu lt documented in this encounter Visit Diagnoses Not on filedocumented in this encounter Care Teams Straddle Truck Operator Relationship Specialty Start Date End Date Enrique Alba MD PCP - General Family Medicine 09/16/22 documented as of this encounter
--- OUTSIDE RECORDS SUMMARY | 2024-10-27 07:13 | XMS_ITS | Encounter Summary ---
Author Organization [facility] Address [address] [place] [address] Care Team Providers Care Buggy Loader Name Role Phone Enrique Burgso MD Primary Care Provider Encounter Details Date Type Department Care Team (Late st Contact Info) Description 03/09/2024 Abstract [facility] FM [address] [facility] [address] [place] [address] Enrique Burgos MD [address] [facility] [address] [place] [address] Social History Tobacco Use Types Packs/Day Years [...] How often do you attend chur or holiness services? 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 file Not on file Not on file documented as of this encounter Plan of Treatment Upcoming Encounters Date Type Department Care Team (Late st Contact Info) Description 04/04/2025 3:00 PM EST Office Visit [facility] B[facility] OB [address] [facility] [place] [address] Janey Savage PA [address] [facility] [place] [address] documented as of this encounter Visit Diagnoses Not on filedocumented in this encounter Care Teams Buggy Loader Relationship Specialty Start Date End Date Enrique Burgos MD PCP - General Family Medicine 09/16/22 documented as of this encounter
--- OUTSIDE RECORDS SUMMARY | 2024-10-27 07:13 | XMS_ITS | Encounter Summary ---
Author Organization [facility] Address [address] [place] [address] Care Team Providers Care Helper Animal Laboratory Name Role Phone Enrique Alba MD Primary Care Provider [phone] Encounter Details Date Type Department Care Team (Late st Contact Info) Description 03/05/2024 Clinisync Result Encounter [facility] External Department Unsolicited Enrique Alba MD [address] [place] [address] Social History Tobacco Use Types Packs/Day Years [...] How often do you attend chur or muslim services? More than 4 times per year 12/15/2023 Do you belong to any clubs o r organizations such as confucianist groups, unions, fraternal or athletic groups, or [...] Recorded Patient Health Questionnaire-2 Score 0 11/14/2022 [facility] Occup[facility] ional Health - Occupational [...] place to sleep or slept in a group home (including now)? No 09/18/2022 Housing Stability Vital Sign Answer Jules e Recorded In the last 12 months, was t here a time when you were not able to pay the mortgage or rent on time? No 12/15/2023 In the past 12 months, how m any times have you moved where you were living? 0 12/15/2023 At any time in the past 12 m [facility], were you homeless or living in a group home (including now)? 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 Not on file Not on file Not on file documented as of this encounter Plan of Treatment Upcoming Encounters Date Type Department Care Team (Late st Contact Info) Description 04/04/2025 3:00 PM EST Office Visit [facility] OB [address] [place] [address] [place] [phone] Janey Savage PA [address] [place] [address] [address] [place] [id number] documented as of this encounter Procedures Procedure Name Priority Date/Time Associated Diagnosis Comments XR DEXA AXIAL SKELETON 03/05/2024 7:37 AM EST documented in this encounter Results * XR DEXA AXIAL SKELETON (03/05/2024 7:37 AM EST) Anatomical Region Laterality Modality Other 03/05/2024 7:37 AM EST Narrative 03/05/2024 7:39 AM EST [address] [address] XRay Report Signed Patient: Naima Hernandez MR#: [id number] : 1970 Acct:[id number] Age/Sex: 53 / F ADM Date: 03/05/24 Loc: MAMMO Attending Dr: ENRIQUE ALBA Ordering Physician: ENRIQUE ALBA Date of Service: 03/05/24 Procedure(s): XR DEXA axial skeleton Accession Number(s): [id number] cc: ENRIQUE ALBA [address] [address] Patient Name: NAIMA HERNANDEZ MRN: [id number] date: 1970 Sex: F Assigned Patient Location: MAMMO Current Patient Location: MAMMO Accession/Order Number: [id number] Exam Date: 03/05/2024 07:00 Report Date: 03/05/2024 07:37 At the request of: ENRIQUE ALBA Procedure: XR DEXA axial skeleton EXAMINATION: XR DEXA axial skeleton HISTORY: Menopausal, Osteoporosis Screening COMPARISON: No relevant comparison available. TECHNIQUE: Dual-energy X-ray absorptiometry (DXA) was performed. FINDINGS: SPINE ANALYSIS: Average bone mineral density is 1.257 g/cm2. T-score (standard deviation relative to young adult mean): 0.6 . HIP ANALYSIS: Lowest bone mineral density is within the right femoral neck, 0.853 g/cm2. T-score (standard deviation relative to young adult mean): -1.3 . XR/XR DEXA axial skeleton IMPRESSION: World Health Organization Classification: Osteopenia - Moderate Fracture Risk FRAX: Cannot be calculated. Pharmacologic treatment recommendations * No uniform recommendation applies to all patients. Management plans must be individualized. * Consider initiating pharmacologic treatment in postmenopausal women and men >= 50 years of age who have the following: Primary fracture prevention: * T-score <= - 2.5 at the femoral neck, total hip, lumbar spine, 33% radius (some uncertainty with existing data) by DXA. * Low bone mass (osteopenia: T-score between - 1.0 and - 2.5) at the femoral neck or total hip by DXA with a 10-year hip fracture risk >= 3% or a 10-year major osteoporosis-related fracture risk >= 20% (i.e., clinical vertebral, hip, forearm, or proximal humerus) based on the US-adapted FRAXregistered model. Secondary fracture prevention: * Fracture of the hip or vertebra regardless of BMD [4, 5]. * Fracture of proximal humerus, pelvis, or distal forearm in persons with low bone mass (osteopenia: T-score between - 1.0 and - 2.5). The decision to treat should be individualized in persons with a fracture of the proximal humerus, pelvis, or distal forearm who do not have osteopenia or low BMD [12, 13]. Marian MS, Grecia SL, Praveen KL, Jill EM, Nghia KG, AJ, Libra ES. The clinician's guide to prevention and treatment of osteoporosis. Osteoporos Int. 2021;33(10):4215-7793. doi: 10.1007/v18571-280-14376-i. Epub 2021Aug 23. Erratum in: Osteoporos Int. 2021Nov 22;: PMID: 07226828; PMCID: [id number]. Electronically authenticated by: VIKAS NEGRON Date: 03/05/2024 07:37 Dictated By: Vikas Negron M.D. Signed By: 03/05/24 0739 DD/ TD/TT: Bookseamer Blindstitch: Procedure Note Radiology, Radiologist, - 03/05/[address] [address] XRay Report Signed Patient: Naima Hernandez MMR#: [id number] : 1970Acct:[id number] Age/Sex: 53 / FADM Date: 03/05/24 Loc: MAMMO Attending Dr: ENRIQUE ALBA Ordering Physician: ENRIQUE ALBA Date of Service: 03/05/24 Procedure(s): XR DEXA axial skeleton Accession Number(s): [id number] cc: ENRIQUE ALBA [address] [address] Patient Name: NAIMA HERNANDEZ MRN: [id number] date: 1970 Sex: F Assigned Patient Location: MAMMO Current Patient Location: [facility] Accession/Order Number: [id number] Exam Date: 03/05/2024 07:00 Report Date: 03/05/2024 07:37 At the request of: ENRIQUE ALBA Procedure: XR DEXA axial skeleton EXAMINATION: XR DEXA axial skeleton HISTORY: Menopausal, Osteoporosis Screening COMPARISON: No relevant comparison available. TECHNIQUE: Dual-energy X-ray absorptiometry (DXA) was performed. FINDINGS: SPINE ANALYSIS: Average bone mineral density is 1.257 g/cm2. T-score (standard deviation relative to young adult mean): 0.6 . HIP ANALYSIS: Lowest bone mineral density is within the right femoral neck, 0.853 g/cm2. T-score (standard deviation relative to young adult mean): -1.3 . XR/XR DEXA axial skeleton IMPRESSION: World Health Organization Classification: Osteopenia - Moderate FractureRisk FRAX: Cannot be calculated. Pharmacologic treatment recommendations * No uniform recommendation applies to all patients. Management plans mustbe individualized. * Consider initiating pharmacologic treatment in postmenopausal women andmen >= 50 years of age who have the following: Primary fracture prevention: * T-score <= - 2.5 at the femoral neck, total hip, lumbar spine, 33%radius (some uncertainty with existing data) by DXA. * Low bone mass (osteopenia: T-score between - 1.0 and - 2.5) at thefemoral neck or total hip by DXA with a 10-year hip fracture risk >= 3% or [id number] major osteoporosis-related fracture risk >= 20% (i.e., clinical vertebral, hip, forearm, or proximal humerus) based on the US-adapted FRAXregisteredmodel. Secondary fracture prevention: * Fracture of the hip or vertebra regardless of BMD [4, 5]. * Fracture of proximal humerus, pelvis, or distal forearm in persons withlow bone mass (osteopenia: T-score between - 1.0 and - 2.5). The decision totreat should be individualized in persons with a fracture of the proximalhumerus, pelvis, or distal forearm who do not have osteopenia or low BMD [12, 13]. Marian MS, Grecia SL, Praveen KL, Jill EM, Nghia KG, AJ,Libra ES. The clinician's guide to prevention and treatment of osteoporosis.Osteoporos Int. 2021;33(10):0804-4192. doi: 10.1007/s16292-820-26644-t. Ep. Erratum in: Osteoporos Int. 2021Nov 22;: PMID: 51532841; PMCID: [id number]. Electronically authenticated by: VIKAS NEGRON Date: 03/05/2024 07:37 Dictated By: Vikas Negron M.D. Signed By:03/05/2439 DD/ TD/TT: Bookseamer Blindstitch: Enrique Alba MD [facility] Final Resu lt documented in this encounter Visit Diagnoses Not on filedocumented in this encounter Care Teams Helper Animal Laboratory Relationship Specialty Start Date End Date Enrique Alba MD PCP - General Family Medicine 09/16/22 documented as of this encounter
--- OUTSIDE RECORDS SUMMARY | 2024-10-27 07:13 | XMS_ITS | Encounter Summary ---
Author Organization [facility] Address [address] [place] [address] Care Team Providers Care Relay Worker Name Role Phone Enrique Burgos MD Primary Care Provider Encounter Details Date Type Department Care Team (Late st Contact Info) Description 12/25/2023 Orders Only [facility] [address] [place] [address] Enrique Burgos MD 112 [facility] [address] [place] [address] Social History Tobacco Use Types Packs/Day Years [...] How often do you attend chur or temple services? More than 4 times per year 12/15/2023 Do you belong to any clubs o r organizations such as druze groups, unions, fraternal or athletic groups, or [...] Recorded Patient Health Questionnaire-2 Score 0 11/14/2022 [facility] - Occupational Stress Questionnaire Answer Date [...] place to sleep or slept in a fdc (including now)? No 09/18/2022 Housing Stability Vital [...] time in the past 12 m [facility], were you homeless or living in a fdc (including now)? 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
--- OUTSIDE RECORDS SUMMARY | 2024-10-27 07:13 | XMS_ITS | Clinical Summary ---
Author Organization [facility] Address [address] [place] [address] Care Team Providers Care Transfer Operator Name Role Phone Ronak Flores Primary Care Provider Taylor Mejia RD Unavailable Allergies No known active allergies Medications albuterol HFA (PROVENTIL HFA, VENTOLIN HFA) 90 mcg/actuation inhaler Inhale 2 Puffs as instructed every 6 hours as needed. 8 Active Active Problems Problem Noted Date Diagnosed Date S/P total knee arthroplasty 11/27/2012 Bilateral knee pain 08/26/2012 Social History Tobacco Use Types Packs/Day Years Used Date Smoking Tobacco: Never Smokeless Tobacco: Never Tobacco Cessation:Counseling Given: Not Answered Alcohol Use Standard Drinks/Week Comments No 0 (1 standard drink = 0.6 oz pur e alcohol) PHQ-2 Answer Date Recorded PHQ-2 score 2 07/29/2022 Area Deprivation Index Answer Date Luis rded National Score (1-100), lower number is lower ri sk 87 10/30/2022 State Score (1-10), lower number is lower risk 8 10/30/2022 Data from: https://www.neighborhoodatlas.[facility].edu/. Last address used for calculation [address] [place] [address] 10/30/2022 Comments No Sex and Gender Information Value Date Recorded Sex Assigned at Not on file Legal Sex Female 8:03 AM EST Gender Identity Not on file Sexual Orientation Not on file Last Filed Vital Signs Vital Sign Reading Time Taken Comments Blood Pressure 177/81 08/01/2022 2:50 PM EDT Pulse 101 08/01/2022 2:50 PM EDT Temperature 36.4 C (97.5 F) 04/01/2013 1:45 PM EST Respiratory Rate 18 04/01/2013 1:45 PM EST Oxygen Saturation 97% 04/01/2013 1:45 PM EST Inhaled Oxygen Concentration - - Weight 117.9 kg (260 lb) 12/05/2022 2:03 PM EDT Height 160 cm (5' 3 ) 12/05/2022 2:03 PM EDT Body Mass Index 46.06 12/05/2022 2:03 PM EDT Plan of Treatment Health Maintenance Due Date Last Done Comments Anxiety Screening 1988 Depression Screening 1988 HIV Screening 1988 Hepatitis C Screening 1988 DTaP,Tdap,Td Vaccine (1 - Tdap) 1989 Hepatitis B Vaccine (1 of 3 - 19+ 3-dose series) 1989 Cervical Cancer Screening 09/25/1991 CT Colonography 09/25/2015 Cologuard (FIT-DNA) 09/25/2015 Colonoscopy 09/25/2015 Colorectal Cancer Screening 09/25/2015 Fecal Occult Blood 09/25/2015 Lipid Screening 09/25/2015 Sigmoidoscopy 09/25/2015 Diabetes Screening 03/31/2016 03/31/2013, 1 05/31/2012, 03/19/2013, Additional history exists Pneumococcal Vaccine: 50+ (1 of 1 - PCV) 2020 Mammogram Screening 07/12/2021 07/12/2020 Covid-19 Vaccine ( - 2023-2 5 season) 2023 01/15/2022, 07/27/2021, 03/08/2021, Additional history exists Influenza Vaccine (Season Ended) 2024 01/15/2022, 01/27/2021, 02/02/2020, Additional history exists Shingrix Vaccine Completed 02/10/2021, 12/02/2020 Medical Devices Implanted Type Area Licensed Practical Vocational Nurse Device Identifier Shelf Expiration Date Model / Serial / Lot Simplex P Bone Cement Radiopaque Full Dose Individual Pack - [id number] Implanted:Qty: 1 on 10/27/2012 at [facility] Cement / Put[employer] 02/25/2015 [id number] / / [id number] Simplex P Bone Cement Radiopaque Full Dose Individual Pack - [id number] Implanted:Qty: 1 on 10/27/2012 at [facility] [employer]ement / [employer] 01/25/2014 [id number] / / [id number] Simplex P Bone Cement Radiopaque Full Dose Individual Pack - [id number] Implanted:Qty: 2 on 03/30/2013 at [facility] Cement / Put[employer] 06/26/2015 [id number] / / [id number] Ins Tib 4 13mm Kn X3 Cr Trthln - [id number] Implanted:Qty: 1 on 10/27/2012 at [facility] Joint - Knee [employer] 02/25/2017 [id number] / / [id number] Comp Fem 4 Lt Kn Cr Ivan Trthln - [id number] Implanted:Qty: 1 on 10/27/2012 at [facility] - Knee [employer] 05/20/2017 [id number] / / [id number] Comp Fem 4 Rt Kn Cr Ivan Trthln - [id number] Implanted:Qty: 1 on 03/30/2013 at [facility] Knee [employer] [employer] 11/03/2017 [id number] / / [id number] Ins Tib 3 9mm Kn X3 Cr Trthln - [id number] Implanted:Qty: 1 on 03/30/2013 at [facility] - Knee [employer] [employer] 02/23/2018 [id number] / / [id number] Comp Pat 10mm 32mm Asym Trthln - [id number] Implanted:Qty: 1 on 10/27/2012 at [facility] - Patella [employer] 09/01/2017 [id number] / / [id number] Comp Pat 10mm 32mm Asym Trthln - [id number] Implanted:Qty: 1 on 03/30/2013 at [facility] - [place] [employer] 12/30/2017 [id number] / / [id number] Baseplt Tib Trthln 4 Prim - [id number] Implanted:Qty: 1 on 10/27/2012 at [facility] Plate [employer] 08/03/2017 [id number] / / [id number] Baseplt Tib Trthln 3 Prim - [id number] Implanted:Qty: 1 on 03/30/2013 at [facility] 03/10/2018 [id number] / / [id number] Procedures Procedure Name Priority Date/Time Associated Diagnosis Comments BASIC METABOLIC PANEL Routine 03/31/2013 10:32 PM EST from Last 3 Months or Most Recently Relevant to Health Maintenance Results * (ABNORMAL) BASIC METABOLIC PNL (03/31/2013 10:32 PM EST) Glucose 157(H) 65 - 100 mg/dL [facility] BUN 10 8 - 25 mg/dL [facility] Creatinine 0.72 0.70 - 1.40 mg/dL [facility] Sodium 136 132 - 148 mmol/L [facility] Potassium 4.3 3.5 - 5.0 mmol/L [facility] Chloride 102 98 - 110 mmol/L [facility] CO2 22(L) 23 - 32 mmol/L [facility] Anion Gap 12 0 - 15 mmol/L [facility] Calcium 8.6 8.5 - 10.5 mg/dL [facility] Blood specimen (specimen) BLOOD SPECIMEN / Unknown 03/31/2013 10:32 PM EST 03/31/2013 10:33 PM EST Carlton Denny MD LABORATORY Final Result [facility] [address] [place] [address] from Last 3 Months or Most Recently Relevant to Health Maintenance [place] [address] [address] Care Teams Transfer Operator Relationship Specialty Start Date End Date Ronak Flores PCP - General Internal Medicine 08/26/[address] [place] [id number] Registered Dietitian Nutrition 12/05/22
--- OUTSIDE RECORDS SUMMARY | 2024-10-27 07:13 | XMS_ITS | Encounter Summary ---
Author Organization [facility] Address [address] [place] [address] Care Team Providers Care Engine Turner Name Role Phone Enrique Burgos MD Primary Care Provider Encounter Details Date Type Department Care Team (Late st Contact Info) Description 11/03/2023 Orders Only [facility] [address] [place] [address] Enrique Burgos MD [address] [facility] [address] [place] [address] Social History Tobacco Use Types Packs/Day Years [...] How often do you attend chur or mu-ism services? More than 4 times per year 09/18/2022 Do you belong to any clubs o r organizations such as congregational groups, unions, fraternal or athletic groups, or [...] Recorded Patient Health Questionnaire-2 Score 0 11/14[facility]2022 [facility] Answer Date [...] place to sleep or slept in a mcc (including now)? 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
--- OUTSIDE RECORDS SUMMARY | 2024-10-27 07:13 | XMS_ITS | Encounter Summary ---
Author Organization [facility] Address [address] [place] [address] Care Team Providers Care Build Manager Name Role Phone Mark, Ronak E Primary Care Provider Taylor Mejia RD Unavailable Source Comments In the event this information is protected by the Federal Confidentiality of Alcohol and Drug AbusePatient Records regulations: The Federal rules restrict any use of the information to criminally investigate or prosecute any alcohol or drug abuse patient.[facility] Encounter Details Date Type Department Care Team (Late st Contact Info) Description 12/05/2022 Patient Msg Nutrition Therapy [address] [place], [place] [id number] Provider, [facility] Nutrition Summary Social History Tobacco Use Types Packs/Day Years [...] is lower risk 8 10/30/2022 Data from: https://www.neighborhoodatlas.medicine.[facility].edu/. Last address used for calculation [address] 10/30/2022 Comments No Sex and Gender Information Value Date Recorded Sex Assigned at Not on file Legal Sex Female 8:03 AM EST Gender Identity Not on file Sexual Orientation Not on file documented as of this encounter Plan of Treatment Not on file documented as of this encounter Visit Diagnoses Not on filedocumented in this encounter Care Teams Build Manager Relationship Specialty Start Date End Date Ronak Flores PCP - General Internal Medicine 08/26/[address] [place] [address] Registered Dietitian Nutrition 12/05/22 documented as of this encounter
--- OUTSIDE RECORDS SUMMARY | 2024-10-27 07:13 | XMS_ITS | Encounter Summary ---
Author Organization [facility] Address [address] [place] [address] Care Team Providers Care Casing Tier Name Role Phone Enrique Burgos MD Primary Care Provider Encounter Details Date Type Department Care Team (Late st Contact Info) Description 03/02/2024 Orders Only [facility] [address] [place] [address] RachelJuly, Menopausal and female climacteric states; Osteoporosis screening; Encounter for follow-up examination after completed treatment for conditions other than malignant neoplasm; Screening mammogram for breast cancer Social History Tobacco Use Types Packs/Day Years [...] How often do you attend chur or congregation services? More than 4 times per year 12/15/2023 Do you belong to any clubs o r organizations such as temple groups, unions, fraternal or athletic groups, or [...] Recorded Patient Health Questionnaire-2 Score 0 11/14/2022 [facility] - Occupational Stress Questionnaire Answer Date [...] place to sleep or slept in a fci (including now)? No 09/18/2022 Housing Stability Vital Sign Answer Jules e Recorded In the last 12 months, was t here a time when you were not able to pay the mortgage or rent on time? No 12/15/2023 In the past 12 months, how m any times have you moved where you were living? 0 12/15/2023 At any time in the past 12 m [facility], were you homeless or living in a fci (including now)? 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 [address] documented as of this encounter Visit Diagnoses Diagnosis Menopausal and female climacteric states Osteoporosis screening Special screening for osteoporosis Encounter for follow-up examination after completed treatment for conditions other than malignant neoplasm Screening mammogram for breast cancer documented in this encounter Care Teams Casing Tier Relationship Specialty Start Date End Date Enrique Burgos MD (Fax) PCP - General Family Medicine 09/16/22 documented as of this encounter
--- OUTSIDE RECORDS SUMMARY | 2024-10-27 07:26 | XMS_ITS | CCD ---
Author Organization [facility] Care Team Providers Care Washer Hand Name Role Phone ANJALI, DR BLAKELY Admitting [...] UnavailErnie Moreno Admitting Unavailabl Ben Gooden Unavailable Pollo Florest E Primary Care Provider UnavailTaylor Nava RD Unavailable [phone] RADHA ABDUL Referring UnavailTAYLOR Nava Attending Unavailable ELYSE FLORESGHT E Primary Care Unavailable RADHA ABDUL Attending Unavailabl MIKE Rogers Referring Unavailable ELYSE FLORESGHT E Primary Care Unavailable MARIAJOSE ASHER Attending Unavailable ELYSE FLORESGHT E Primary Care Unavailable Enrique Alba MD Primary Care Provider [phone] Enrique Alba MD Primary Care Provider LUIS EDUARDO LEVINE Attending Unavailable LUIS EDUARDO LEVINE Referring Unavailable ENRIQUE ALBA Attending Unavailable ENRIQUE ALBA Attending Unavailable ENRIQUE ALBA Attending Unavailable ENRIQUE ALBA Attending Unavailable ENRIQUE ALBA Attending Unavailable AJNEY DAVIS Attending Unavailable ENRIQUE ALBA Attending Unavailable BEATRIZ RANKIN Attending Unavailable BEATRIZ RANKIN Referring Unavailable Allergies Allergy Classification Reported Allergen(s) Allergy Type Date of Onset Reaction(s) Facility (20 sources) DULoxetine Drug Allergy 2 [facility] Healthcare (20 sources) metFORMIN Drug Allergy 4 GI intolerance [facility] Work Phone: Medications Current Medications Medication Drug Class(es) Dates Sig (Normalized) Sig (Original) [id number] 200 actuat albuterol 0.09 mg/actuat metered dose inhaler (20 sources) beta2-Adrenergic Agonist Start: 05-14-2023 take 2 [...] in structed every 6 hours as needed. citalopram 10 mg oral tablet (3 sources) Serotonin Reuptake Inhibitor Start: 5 take 1 tablet by mouth once daily citalopram (CeleXA) 10 MG tablet Indications: Hot flashes , Menopausal symptoms Take 1 tablet (10 mg) by mouth Daily 30 tablet 3 05/12/2024 Active diclofenac sodium 0.03 mg/mg topical gel (20 sources) Nonsteroidal Anti-inflammatory Drug Start: 2 diclofenac sodium 3 % gel Apply 1 application topically every 6 (six) hours. 07/23/2021 Active fenofibrate 160 mg oral tablet (20 sources) Peroxisome Proliferator Receptor alpha Agonist Start: End: take 1 tablet by mouth once daily fenofibrate (Triglide) 160 MG tablet Indications: Mixed dyslipidemia (CMS/HCC) Take 1 tablet (160 mg) by mouth Daily 90 tablet 1 08/02/2024 01/29/2025 Active Start: 03-11-2024 End: 03-15-2024 take 1 [...] tablet 1 01/29/2023 02/25/2024 Discontinued (Therapy completed) Fezolinetant (Veozah) 45 MG tablet (5 sources) Start: 07-21-2024 End: 09-01-2024 take 1 tablet by mouth once daily Fezolinetant (Veozah) 45 MG tablet Indications: Hot flashes , Menopausal symptoms Take 45 mg by mouth Daily 30 tablet 1 07/21/2024 09/01/2024 Active Start: 07-21-2024 End: 08-20-2024 take 1 tablet by mouth once daily Fezolinetant (Veozah) 45 MG tablet Indications: Hot flashes , Menopausal symptoms Take 45 mg by mouth Daily 30 tablet 1 07/21/2024 08/20/2024 Active gabapentin 300 mg oral capsule (17 sources) Anti-epileptic Agent Start: 08-02-2024 End: 01-29-2025 take 1 capsule by mouth at bedtime gabapentin (Neurontin) 300 MG capsule Indications: Restless leg syndrome Take 1 capsule (300 mg) by mouth at bedtime 90 capsule 1 08/02/2024 01/29/2025 Active Start: 08-19-2023 End: 02-25-2024 take 1 capsule [...] pain 180 capsule 1 07/23/2023 02/25/2024 Discontinued levoFLOXacin 750 mg oral tablet (2 sources) Quinolone Antimicrobial Start: 04-05-2024 End: 04-12-2024 take 1 tablet by mouth once daily levoFLOXacin (Levaquin) 750 MG tablet Indications: Acute non-recurrent pansinusitis Take 1 tablet (750 mg) by mouth Daily for 7 days 7 tablet 04/05/2024 04/12/2024 Active magnesium oxide 400 mg oral tablet (6 sources) Start: 04-16-2024 End: 07-15-2024 take 1 tablet by mouth once daily magnesium oxide (Mag-Ox) 400 MG tablet Indications: Hot flashes Take 1 tablet (400 mg) by mouth Daily 30 tablet 2 04/16/2024 07/15/2024 Active melatonin 10 mg oral tablet (20 sources) take 1 tablet by mouth at bedtime melatonin 10 MG tablet Take 1 tablet by mouth at bedtime. Active 24 hr metFORMIN hydrochloride 750 mg extended release oral tablet (20 sources) Biguanide Start: 05-13-2024 take 1 tablet by mouth every twenty-four hours in the morning metFORMIN XR (Glucophage-XR) 750 MG 24 hr tablet Indications: Pre-diabetes Take 1 tablet (750 mg) by mouth in the morning and 1 tablet (750 mg) before bedtime. Do not crush, chew, or split.. 60 tablet 05/13/2024 Active Start: 03-11-2024 End: 04-30-2024 take 1 tablet by mouth every twenty-four hours in the morning metFORMIN XR (Glucophage-XR) 500 MG 24 hr tablet Indications: Pre-diabetes Take 1 tablet (500 mg) by mouth in the morning and 1 tablet (500 mg) in the evening. Take with meals. Do not crush, chew, or split.. 60 tablet 03/31/2024 04/30/2024 Active Start: 07-14-2023 End: 12-16-2023 take 1 tablet by mouth in the morning metFORMIN (Glucophage) 500 MG tablet Indications: Glucose intolerance (impaired glucose tolerance) Take 1 tablet (500 mg) by mouth in the morning and 1 tablet (500 mg) in the evening. Take before meals. 60 tablet 07/14/2023 12/16/2023 Discontinued (Therapy completed) Start: 07-14-2023 End: 12-16-2023 take 1 tablet by mouth in the morning metFORMIN (Glucophage) 850 MG tablet Indications: Glucose intolerance (impaired glucose tolerance) Take 1 tablet (850 mg) by mouth in the morning and 1 tablet (850 mg) in the evening. Take before meals. 60 tablet 07/14/2023 12/16/2023 Discontinued (Therapy completed) Start: 01-29-2023 End: 12-16-2023 take 1 tablet by mouth in the morning metFORMIN (Glucophage) 1000 MG tablet Indications: Glucose intolerance (impaired glucose tolerance) Take 1 tablet (1,000 mg) by mouth in the morning and 1 tablet (1,000 mg) in the evening. Take with meals. 180 tablet 1 01/29/2023 12/16/2023 Discontinued (Therapy completed) methylPREDNISolone (5 sources) Corticosteroid Start: 06-15-2024 End: 06-22-2024 methylPREDNISolone (Medrol Dospak) 4 MG tablets Indications: Left foot pain Follow schedule on package instructions 21 tablet 06/15/2024 06/22/2024 Active Start: 04-17-2024 End: 04-24-2024 methylPREDNISolone (Medrol D ospak) 4 MG tablets Indications: Acute pain of left knee Take as directed on package. 21 tablet 04/17/2024 04/24/2024 Active rOPINIRole 0.5 mg oral tablet (20 sources) Nonergot Dopamine Agonist Start: 09-15-2023 End: 08-02-2024 rOPINIRole (Requip) 0.5 MG tablet Indications: Restless Leg Syndrome One tablet at bedtime 90 tablet 1 08/02/2024 Active 24 hr venlafaxine 37.5 mg extended release oral capsule (9 sources) Serotonin and Norepinephrine Reuptake Inhibitor Start: 11-03-2023 End: 01-15-2024 take 1 capsule by mouth once daily venlafaxine XR (Effexor XR) 37.5 MG 24 hr capsule Indications: Recurrent major depressive disorder, in partial remission (HCC) (CMS/HCC) Take 1 capsule (37.5 mg) by mouth Daily Do not crush or chew. 30 capsule 12/16/2023 12/25/2023 Discontinued (Side effects) Start: 11-03-2023 End: 12-16-2023 take 1 tablet by mouth every twenty-four hours at mealtime venlafaxine XR (Effexor XR) 150 MG 24 hr tablet Indications: Recurrent major depressive disorder, in partial remission (HCC) (CMS/HCC) Take 1 tablet (150 mg) by mouth in the morning. Take with meals. Do not crush, chew, or split.. 30 tablet 11/03/2023 12/16/2023 Discontinued (Dose adjustment) Completed/Discontinued Medications Medication Drug Class(es) Dates Sig (Normalized) Sig (Original) escitalopram 5 mg oral tablet (4 sources) Serotonin Reuptake Inhibitor Start: 12-25-2023 End: 02-25-2024 take 1 tablet by mouth once daily escitalopram (Lexapro) 5 MG tablet Indications: Recurrent major depressive disorder, in partial remission (HCC) (CMS/HCC) Take 1 tablet (5 mg) by mouth Daily 30 tablet 12/25/2023 02/25/2024 Discontinued (Therapy completed) fluconazole 150 mg oral tablet (4 sources) Azole Antifungal Start: 03-29-2024 End: 04-05-2024 take 1 tablet by mouth once fluconazole (Diflucan) 150 MG tablet Indications: Yeast infection of the skin Take 1 tablet (150 mg) by mouth 1 (one) time for 1 dose 1 tablet 03/29/2024 04/05/2024 Discontinued (Therapy completed) liothyronine sodium 0.005 mg oral tablet (1 source) l-Triiodothyronine End: 08-01-2022 take 1 tablet by mouth once daily liothyronine (CYTOMEL) 5 mcg tablet Take 5 mcg by mouth once daily. 0 08/01/2022 Discontinued Comment on above: Take 5 mcg by mouth once daily. meloxicam 15 mg oral tablet (9 sources) Nonsteroidal Anti-inflammatory Drug Start: 08-01-2022 End: [...] Take 800 mg by mouth as needed. Veozah 45 MG tablet (2 sources) Start: 08-18-2024 End: 09-01-2024 take 1 tablet by mouth once daily Veozah 45 MG tablet Take 1 tablet by mouth Daily 08/18/2024 09/01/2024 Discontinued (Therapy completed) Problems Active Problems Problem Classification Problem Date Documented Date Episodic/Chronic Administrative/social admission (2 sources) Advance directive discussed with patient; 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: [Other specified counseling] 02-19-2024 Episodic Cardiac dysrhythmias (8 sources) Palpitations; 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: [Tachycardia] 09-01-2024 Episodic Disorders of lipid metabolism (20 sources) Mixed hyperlipidemia; 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: [Mixed hyperlipidemia] Onset: 03-29-2021 Chronic Essential hypertension (20 sources) Essential (primary) hypertension; 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: [Hypertensive disorder] Onset: 10-12-2021 Chronic Genitourinary symptoms and ill-defined conditions (20 sources) Urge incontinence of urine; 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: [Urge incontinence] Onset: 09-17-2022 09-17-2022 Chronic Immunizations and screening for infectious disease (1 source) Encounter for screening for human papillomavirus (HPV); 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: [ENC SCREENING HUMAN PAPILLOMAVIRUS] Onset: 11-05-2021 Episodic Malaise and fatigue (20 sources) Fatigue; 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: [Chronic fatigue, unspecified] Onset: 09-17-2022 09-17-2022 Chronic Menopausal disorders (11 sources) Menopausal syndrome; 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: [Menopausal and female climacteric states] Onset: 01-15-2025 10-31-2024 Chronic Miscellaneous mental health disorders (20 sources) Insomnia disorder related to another mental disorder; 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: [Insomnia due to other mental disorder] Onset: 09-17-2022 09-17-2022 Chronic Mood disorders (20 sources) Recurrent major depression in partial remission; 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: [Major depressive disorder, recurrent, in partial remission] Onset: 09-17-2022 09-17-2022 Chronic Mycoses (2 sources) Candidiasis of skin; 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: [Candidiasis of skin and nail] 03-29-2024 Episodic Osteoarthritis (20 sources) Osteoarthritis of joint of bilateral hands; 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: [Erosive (osteo)arthritis] Onset: 09-17-2022 Chronic Other aftercare (3 sources) 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; 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: [senior care (current) use of non-steroidal anti-inflammatories (NSAID)] Episodic Other connective tissue disease (3 sources) History of total knee arthroplasty; 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: [Presence of unspecified artificial knee joint] Onset: 11-27-2012 11-27-2012 Chronic Other connective tissue disease (2 sources) Pain in left foot; 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: [Pain in left foot] 06-15-2024 Episodic Other diseases of bladder and urethra (20 sources) Overactive bladder; 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: [Overactive bladder] Onset: 09-17-2022 09-17-2022 Chronic Other female genital disorders (1 source) Other specified noninflammatory disorders of vagina; 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: [OTH SPEC NONINFLAMMATORY D/O VAGINA] Onset: 11-05-2021 Episodic Other hereditary and degenerative nervous system conditions (20 sources) Restless legs; 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: [Restless legs syndrome] Onset: 08-14-2023 08-14-2023 Chronic Other liver diseases (1 source) Inflammatory liver disease, unspecified; 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: [INFLAMMATORY LIVER DISEASE UNS] Onset: 10-18-2021 Chronic Other liver diseases (20 sources) Fatty (change of) liver, not elsewhere classified; 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: [Other chronic nonalcoholic liver disease] Onset: 10-18-2021 Chronic Other liver diseases (5 sources) Steatosis of liver; 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: [Fatty (change of) liver, not elsewhere classified] Chronic Other liver diseases (20 sources) Inflammatory disease of liver; 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: [Inflammatory liver disease, unspecified] Onset: 09-17-2022 09-17-2022 Chronic Other liver diseases (3 sources) Elevated liver enzymes level; 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: [Abnormal levels of other serum enzymes] Episodic Other liver diseases (3 sources) Abnormal levels of other serum enzymes; 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: [Abnormal levels of other serum enzymes] Onset: 02-20-2022 Episodic Other nervous system disorders (20 sources) Chronic pain; 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: [Other chronic pain] Onset: 09-17-2022 09-17-2022 Chronic Other non-traumatic joint disorders (2 sources) Pain in left knee; 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: [Pain in joint, lower leg] 04-17-2024 Episodic Other nutritional; endocrine; and metabolic disorders (2 sources) Obesity; 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: [Obesity, unspecified] Chronic Other nutritional; endocrine; and metabolic disorders (1 source) Severe obesity; 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: [Morbid (severe) obesity due to excess calories] Chronic Other nutritional; endocrine; and metabolic disorders (20 sources) Morbid obesity; 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: [Morbid (severe) obesity due to excess calories] Onset: 09-17-2022 09-17-2022 Chronic Other nutritional; endocrine; and metabolic disorders (20 sources) Body mass index 40+ - severely obese; 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: [Body mass index (BMI) 45.0-49.9, adult] Onset: 05-14-2023 05-14-2023 Chronic Other screening for suspected conditions (not mental disorders or infectious disease) (13 sources) Encounter for screening mammogram for malignant neoplasm of breast; 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: [Encounter for screening for malignant neoplasm of cervix] Onset: 11-01-2021 Episodic Other upper respiratory infections (2 sources) Acute pansinusitis; 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: [Acute pansinusitis, unspecified] 04-05-2024 Episodic Residual codes; unclassified (20 sources) Dependence on enabling machine or device; 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: [Dependence on other enabling machines and devices] Onset: 09-17-2022 09-17-2022 Chronic Residual codes; unclassified (20 sources) Obstructive sleep apnea syndrome; 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: [Obstructive sleep apnea (adult) (pediatric)] Onset: 09-17-2022 09-17-2022 Chronic Residual codes; unclassified (1 source) Acquired absence of other specified parts of digestive tract; 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: [ACQ ABSENCE OTH PART DIGESTV TRACT] Onset: 10-18-2021 Episodic Sprains and strains (2 sources) Strain of foot; 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: [Strain of unspecified muscle and tendon at ankle and foot level, left foot, initial encounter] 06-15-2024 Episodic Unclassified (1 source) New Patient Onset: 10-30-2022 Past or Other Problems Problem Classification Problem Date Documented Da te Episodic/Chronic Diabetes mellitus without complication (20 sources) Impaired glucose tolerance (oral); 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: [Impaired glucose tolerance] Onset: 10-12-2021 Resolved: 08-02-2024 09-17-2022 Episodic Other female genital disorders (20 sources) Pain in female genitalia on intercourse; 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: [Unspecified dyspareunia] Onset: 09-17-2022 Resolved: 02-25-2024 09-17-2022 Chronic Other female genital disorders (20 sources) Disorder of female genital system; 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: [Unspecified condition associated with female genital organs and menstrual cycle] Onset: 09-17-2022 Resolved: 12-11-2023 12-11-2023 Episodic Other nervous system disorders (20 sources) Left-sided piriformis syndrome; 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: [Lesion of sciatic nerve, left lower limb] Onset: 09-17-2022 Resolved: 02-25-2024 09-17-2022 Chronic Other non-traumatic joint disorders (3 sources) Pain in right knee; 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: [Pain in joint, lower leg] Onset: 08-26-2012 08-26-2012 Episodic Residual codes; unclassified (20 sources) Sleep disorder; 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: [Sleep disorder, unspecified] Onset: 09-17-2022 09-17-2022 Episodic Residual codes; unclassified (9 sources) Flushing; 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: [Flushing] Onset: 05-12-2024 05-12-2024 Episodic Thyroid disorders (20 sources) Sick-euthyroid syndrome; 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: [Sick-euthyroid syndrome] Onset: 09-17-2022 09-17-2022 Episodic Results Test Name Value Interpretation Reference Range Facility XR Foot - left 3 [facility] EXAM: XR FOOT 3+ VIE WS LEFT HISTORY: Pain FINDINGS: There is slight narrowing of the 1st metatarsophalangeal articulation. Tarsometatarsal alignment is normal. There is mild flattening of the arch and slight midfoot arthrosis. There is a tiny plantar calcaneal enthesophyte. Slight hammertoe deformities are seen IMPRESSION: Mild flattening of the arch and slight midfoot arthrosis Small plantar calcaneal enthesophyte . Electronically Signed:Electronically signed by DA PORTER MD at 16-Jun-2024 09:39:44 AM [facility] Da Porter MD - 06/16/2024 EXAM: XR FOOT 3+ VIEWS LEFT HISTORY: [...] enthesophyte . Electronically Signed:Electronically signed by DA PORTER MD at 16-Jun-2024 09:39:44 AM [facility] XR Foot - left 3 ViewsOrdere d By: Da Porter on 06-16-2024 [facility] [employer] Work Phone: XR FOOT 3+ VIEWS LEFTon 05-29 XR FOOT 3+ VIEWS LEFT EXAM: XR FOOT 3+ VIEWS LEFT HISTORY: [...] enthesophyte . Electronically Signed:Electronically signed by DA PORTER MD at 16-Jun-2024 09:39:44 AM [facility] Normal Not Available XR Foot - left 3 [facility] Radiology Study observation (narrative) [facility] [employer] XR Knee - left 3 [facility] XR KNEE 3 VIEWS LEFT Reason for [...] signed and approved by the interpreting Radiologist. IMAGING Messi Carballo MD - 04/19/2024 XR KNEE 3 VIEWS LEFT Reason for [...] signed and approved by the interpreting Radiologist. [facility] XR Knee - left 3 ViewsOrdere d By: Messi Carballo on 04-19-2024 [facility] Work Phone: XR KNEE 3 VIEWS LEFTon 04-17 XR KNEE 3 VIEWS LEFT XR KNEE 3 VIEWS LEFT Reason for [...] signed and approved by the interpreting Radiologist. Normal Not Available XR Knee - left 3 [facility] Radiology Study observation (narrative) [facility] IGP,APTIMA HPV,AGE GDLNon AGE GDLN ACOG TESTING Note . [facility] Comment on above: TESTS RESULT FLAG UN ITS REF RANGE LAB Clinician Provided Cytology Information Source.............Cervix;Endocervix No. of containers..01 ThinPrep Vial Age Algo ACOG Annabelle... 3065 01 FLAG LEGEND: L-Low Normal,H-High Normal,LL-Alert Low,HH-Alert High <-Panic Low,>-Panic High,A-Abnormal,AA-Critical Abnormal Performed at: 01 =[address] [address] Grace Ramos MD, HPV APTIMA Negative Negative [facility] Comment on above: This nucleic acid am plification test detects fourteen high- risk HPV types (16,18,31,33,35,39,45,51,52,56,58,59,66,68) without differentiation. Performed at: =[address] [id number] Track Worker: Grace Ramos MD, Phone: [phone] Performed at: [address] [id number] Track Worker: Grace Ramos MD, Phone: [phone] IGP, APTIMA HPV, RFX 16/18,45 Note . [facility] Comment on above: TESTS RESULT FLAG UN ITS REF RANGE LAB DIAGNOSIS: 02 NEGATIVE FOR INTRAEPITHELIAL LESION OR MALIGNANCY. Specimen adequacy: 02 Satisfactory for evaluation. Endocervical and/or squamous metaplastic cells (endocervical component) are present. Performed by: Nathalia Ellis, [employer] Developer (ASCP) . 02 Note: Note 02 The Pap smear is a screening test designed to aid in the detection of premalignant and malignant conditions of the uterine cervix. It is not a diagnostic procedure and should not be used as the sole means of detecting cervical cancer. Both false-positive and false-negative reports do occur. Test Methodology: Note 02 This liquid based ThinPrep(R) pap test was screened with the use of an image guided system. HPV Genotype Reflex Note 02 Criteria not met, HPV Genotype not performed. FLAG LEGEND: L-Low Normal,H-High Normal,LL-Alert Low,HH-Alert High <-Panic Low,>-Panic High,A-Abnormal,AA-Critical Abnormal Performed at: [address] [address] Grace Ramos MD, BRUSH-SPATULA CERVIX ENDOCERVIX [facility] ALL LIPID PROFILE (FASTING)o n 03-05-2024 CHOL HDL RATIO 4.5 [facility] Comment on above: 3.3 - 4.4 LOW RISK 4.4 - 7.1 AVERAGE RISK 7.1 - 11.0 MODERATE RISK >11.0 HIGH RISK Cholesterol [Mass/Vol] 232 mg/dL High NINF - 200 mg/dL [facility] Cholesterol in HDL [Mass/Vol] 51 mg/dL 40 - 60 mg/dL [facility] Comment on above: > or =60 mg/dl - LOW CARDIOVASCULAR RISK <40 mg/dl - HIGH CARDIOVASCULAR RISK Magnesium [Mass/Vol] 122 mg/dL [facility] Comment on above: <100 mg/dl OPTIMAL 100-129 mg/dl NEAR OR ABOVE OPTIMAL 130-159 mg/dl BORDERLINE HIGH 160-189 mg/dl HIGH >190 mg/dl VERY HIGH Magnesium [Mass/Vol] 59.2 mg/dL [facility] Triglyceride [Mass/Vol] 296 mg/dL High NINF - 150 mg/dL [facility] CMP (CMP) (FOR REMOTE FH C USE)on 03-05-2024 Albumin [Mass/Vol] 3.9 g/dL 3.4 - 5.0 g/dL [facility] ALBUMIN GLOBULIN RATIO 1.1 [facility] ALP [Catalytic activity/Vol] 102 U/L 46 - 116 U/L [facility] ALT [Catalytic activity/Vol] 153 U/L High 14 - 59 U/L [facility] Anion gap [Moles/Vol] 14.3 mmol/L [facility] AST [Catalytic activity/Vol] 98 U/L High 15 - 37 U/L [facility] Bilirubin [Mass/Vol] 0.4 mg/dL 0.2 - 1.0 mg/dL [facility] Calcium [Mass/Vol] 8.4 mg/dL Low 8.5 - 10. 1 mg/dL [facility] Chloride [Moles/Vol] 105 mmol/L 98 - 107 mmol/L [facility] CO2 [Moles/Vol] 29.7 mmol/L 21.0 - 32.0 mmol/L [facility] Creatinine [Mass/Vol] 0.98 mg/dL 0.55 - 1.02 mg/dL [facility] GFR/1.73 sq M.predicted CKD-EPI (S/P/Bld) [Vol rate/Area] >60 >=60 mL/min/1.73m 2 [facility] Globulin (S) [Mass/Vol] 3.6 g/dL [facility] Glucose [Mass/Vol] 112 mg/dL High 74 - 106 mg/dL [facility] Potassium [Moles/Vol] 4 mmol/L 3.5 - 5.1 mmol/L [facility] Protein [Mass/Vol] 7.5 g/dL 6.4 - 8.2 g/dL [facility] Sodium [Moles/Vol] 145 mmol/L 136 - 145 mmol/L [facility] TBH EGFR-NON AF CHINESE 59 Low >=60 mL/min/1.73m 2 [facility] Urea nitrogen [Mass/Vol] 13 mg/dL 7.0 - 18.0 mg/dL [facility] Urea nitrogen/Creatinine [Mass ratio] 13.3 mg/mg [facility] No Panel Informationon 03-05 Interpretation and review of laboratory results Abnormal [facility] CNOVon 10-30-2022 CNOV Office Visit (GASTAV ) NAIMA RIOS ([id number]) 1970 F Date Time Provider Department 10/30/22 1:00 PM RADHA ABDUL During your visit today, we recorded the following information about you: Weight Height 120.2 kg 1.6 m Radha Richey MD 10/30/2022 2:34 PM Signed [facility] Mindy Richey MD, FACG, FAASLD Director, [facility] Hepatology [facility] Consult Requested By: Mike Saeed [address] [facility] [id number] for evaluation of her fatty liver .. [...] distress HEENT negative no icterus Lungs CTA enmanuel COR rrm- Abdomen benign Extremities no edema no spiders no palmar erythema [employer] no asterixis , a+0 X3 Glucose Date [...] with more than 50% of the total [id number] time of the visit in counseling / coordination of care. Referring Provider: MIKE SAEED [[id number]] Allergies As of Date: 10/30/2022 (No Known Allergies) Date Reviewed: 10/30/2022 Reviewed by: RIVER Stuart - Fully Assessed Reason for Visit: New Patient [172] Cmt: Consult for fatty liver Primary Visit Diagnosis:Fatty liver [K76.0] Other Visit Diagnosis:Class 3 severe obesity due to excess calories in adult, unspecified BMI, unspecified whether serious comorbidity present (HCC) [E66.01] Order(s):CELIAC SCREEN WITH REFLEX [SQCELSCR] Order #: [id number] FUTURE HEPATITIS A ANTIBODY, IGG [SQAHAVG] Order #: [id number] FUTURE (more content not included)... Normal [facility] CNOVon 08-01-2022 CNOV Office Visit (RHEMIGELV ) NAIMA RIOS ([id number]) 1970 F Date Time Provider Department 08/01/22 3:00 PM MARIAJOSE ASHER During your visit today, we recorded the following information about you: Pulse Blood pressure 101/minute 177/81 Mariajose Asher MD 08/01/2022 3:52 PM Signed [facility]ology Outpatient [facility] Date of Service: 08/01/2022 Patient: Naima Rois Medical Record: [id number] Primary Care Physician: Zeferino Flores Last Rheumatology visit: None at [facility] [...] Hand-Left hands, shoulders, left hip, Description: Stiffness Stabbing;Stiffness;Achi ng Duration Units: Months Years Frequency: Continuous Continuous Intervention/Comfort measure: Medication;Massage;Ther apeutic techniques-CPRP Medication;Relaxation;H eat;Exercise;Massage Comments: Fingers, toes, left hip, shoulders -- [...] , low transverse COLONOSCOP W/ OR W/O [facility] SPEC Colonoscopy EGD EXTRACTION, ERUPTED TOOTH OR EXPOSED ROOT (ELEVATION AND/OR FORCEPS REMOVAL) KNEE SCOPE,MENISECTOMY,MED OR LAT Bilateral Family History No family history on file. Social History Social History Tobacco Use Smoking status: Never Smokeless tobacco: Never Substance Use Topics Alcohol use: No Drug use: No C (more content not included)... Normal [facility] Ammoniaon 02-20-2022 Ammonia (P) [Moles/Vol] 19 umol/L Normal 11-35 [facility] Comment on above: Order Comment: Reaso n for Exam Elevated liver enzymes;Fatty liver Result Comment: PERF ORMED BY: [place] [address] PATHOLOGIST ELECTRICAL SERVICE TECHNICIAN DAGMAR CANO M.D. Performed By: #### C BC, CMP, AMM, ADAL, PT, LIPID #### [place] [id number] [place] Complete Blood Count Auto Di ffon 02-20-2022 Basophils (Bld) [#/Vol] 0.0 10*3/uL Normal 0.0-0.2 [facility] Comment on above: Order Comment: Reaso n for Exam Elevated liver enzymes;Fatty liver Result Comment: PERF ORMED BY: [place] [address] PATHOLOGIST ELECTRICAL SERVICE TECHNICIAN DAGMAR CANO M.D. Performed By: #### C BC, CMP, AMM, ADAL, PT, LIPID #### [facility] [address] Basophils/100 WBC (Bld) 0.4 % Normal . [facility] Comment on above: Order Comment: Reaso n for Exam Elevated liver enzymes;Fatty liver Performed By: #### C BC, CMP, AMM, ADAL, PT, LIPID #### [address] Eosinophils (Bld) [#/Vol] 0.1 10*3/uL Normal 0.0-0.45 [facility] Comment on above: Order Comment: Reaso n for Exam Elevated liver enzymes;Fatty liver Performed By: #### C BC, CMP, AMM, ADAL, PT, LIPID #### [address] Eosinophils/100 WBC (Bld) 1.1 % Normal . [facility] Comment on above: Order Comment: Reaso n for Exam Elevated liver enzymes;Fatty liver Performed By: #### C BC, CMP, AMM, ADAL, PT, LIPID #### [address] Erythrocyte distribution width (RBC) [Ratio] 14.6 % Normal 11.9-15.3 [facility] Comment on above: Order Comment: Reaso n for Exam Elevated liver enzymes;Fatty liver Performed By: #### C BC, CMP, AMM, ADAL, PT, LIPID #### [address] Hematocrit (Bld) [Volume fraction] 45.3 % Normal 34.0-46.4 [facility] Comment on above: Order Comment: Reaso n for Exam Elevated liver enzymes;Fatty liver Performed By: #### C BC, CMP, AMM, ADAL, PT, LIPID #### [facility] [address] Hemoglobin (Bld) [Mass/Vol] 15.2 g/dL Normal 11.8-15.4 [facility] Comment on above: Order Comment: Reaso n for Exam Elevated liver enzymes;Fatty liver Performed By: #### C BC, CMP, AMM, ADAL, PT, LIPID #### [facility] [address] Lymphocytes (Bld) [#/Vol] 1.6 10*3/uL Normal 1.00-4.8 [facility] Comment on above: Order Comment: Reaso n for Exam Elevated liver enzymes;Fatty liver Performed By: #### C BC, CMP, AMM, ADAL, PT, LIPID #### [facility] [address] Lymphocytes/100 WBC (Bld) 26.9 % Normal . [facility] Comment on above: Order Comment: Reaso n for Exam Elevated liver enzymes;Fatty liver Performed By: #### C BC, CMP, AMM, ADAL, PT, LIPID #### [facility] [address] MCH (RBC) [Entitic mass] 27.3 pg Normal 24.7-34.3 [facility] Comment on above: Order Comment: Reaso n for Exam Elevated liver enzymes;Fatty liver Performed By: #### C BC, CMP, AMM, ADAL, PT, LIPID #### [facility] [address] MCV (RBC) [Entitic vol] 81.5 fL Normal 80-100 [facility] Comment on above: Order Comment: Reaso n for Exam Elevated liver enzymes;Fatty liver Performed By: #### C BC, CMP, AMM, ADLA, PT, LIPID #### [facility] [address] Mean Corpuscular HGB Conc 33.5 g/dL Normal 32.0-35.0 [facility] Comment on above: Order Comment: Reaso n for Exam Elevated liver enzymes;Fatty liver Performed By: #### C BC, CMP, AMM, ADAL, PT, LIPID #### [facility] [address] Monocytes (Bld) [#/Vol] 0.4 10*3/uL Normal 0.0-0.8 [facility] Comment on above: Order Comment: Reaso n for Exam Elevated liver enzymes;Fatty liver Performed By: #### C BC, CMP, AMM, ADAL, PT, LIPID #### [facility] [address] [place] [address] [place] Monocytes/100 WBC (Bld) 6.3 % Normal . [facility] Comment on above: Order Comment: Reaso n for Exam Elevated liver enzymes;Fatty liver Performed By: #### C BC, CMP, AMM, ADAL, PT, LIPID #### [facility] [address] [place] [address] [place] Neutrophils (Bld) [#/Vol] 3.9 10*3/uL Normal 1.8-7.7 [facility] Comment on above: Order Comment: Reaso n for Exam Elevated liver enzymes;Fatty liver Performed By: #### C BC, CMP, AMM, ADAL, PT, LIPID #### [address] Neutrophils/100 WBC (Bld) 65.3 % Normal . [facility] Comment on above: Order Comment: Reaso n for Exam Elevated liver enzymes;Fatty liver Performed By: #### C BC, CMP, AMM, ADAL, PT, LIPID #### [facility] [address] [place] [address] [place] Nucleated RBC/100 WBC (Bld) [Ratio] 0.2 % Normal 0-0.5 [facility] Comment on above: Order Comment: Reaso n for Exam Elevated liver enzymes;Fatty liver Performed By: #### C BC, CMP, AMM, ADAL, PT, LIPID #### [facility] [address] [place] [address] [place] Platelet mean volume (Bld) [Entitic vol] 8.2 fL Normal 6.3-10.7 [facility] Comment on above: Order Comment: Reaso n for Exam Elevated liver enzymes;Fatty liver Performed By: #### C BC, CMP, AMM, ADAL, PT, LIPID #### [facility] [address] Platelets (Bld) [#/Vol] 282 10*3/uL Normal 150-450 [facility] Comment on above: Order Comment: Reaso n for Exam Elevated liver enzymes;Fatty liver Performed By: #### C BC, CMP, AMM, ADAL, PT, LIPID #### [facility] [address] RBC (Bld) [#/Vol] 5.56 10*6/uL High 3.60-5.00 [facility] Comment on above: Order Comment: Reaso n for Exam Elevated liver enzymes;Fatty liver Performed By: #### C BC, CMP, AMM, ADAL, PT, LIPID #### [facility] [address] [place] [address] WBC (Bld) [#/Vol] 5.9 10*3/uL Normal 4.5-11.0 [facility] Comment on above: Order Comment: Reaso n for Exam Elevated liver enzymes;Fatty liver Performed By: #### C BC, CMP, AMM, ADAL, PT, LIPID #### [facility] [address] [place] [address] Comprehensive Metabolic Pane grace 02-20-2022 Albumin [Mass/Vol] 4.4 g/dL Normal 3.2-5.5 [facility] Comment on above: Order Comment: Reaso n for Exam Elevated liver enzymes;Fatty liver Performed By: #### C BC, CMP, AMM, ADAL, PT, LIPID #### [facility] [address] Albumin/Globulin [Mass ratio] 1.6 {ratio} Normal [facility] Comment on above: Order Comment: Reaso n for Exam Elevated liver enzymes;Fatty liver Performed By: #### C BC, CMP, AMM, ADAL, PT, LIPID #### [facility] [address] [place] [address] [place] ALP [Catalytic activity/Vol] 75 U/L Normal 32-92 [facility] Comment on above: Order Comment: Reaso n for Exam Elevated liver enzymes;Fatty liver Performed By: #### C BC, CMP, AMM, ADAL, PT, LIPID #### [facility] [address] [place] [address] [place] ALT [Catalytic activity/Vol] 71 U/L High 10-60 [facility] Comment on above: Order Comment: Reaso n for Exam Elevated liver enzymes;Fatty liver Performed By: #### C BC, CMP, AMM, ADAL, PT, LIPID #### [facility] [address] Anion gap [Moles/Vol] 11.4 mmol/L Normal 6.0-15.0 [facility] Comment on above: Order Comment: Reaso n for Exam Elevated liver enzymes;Fatty liver Performed By: #### C BC, CMP, AMM, ADAL, PT, LIPID #### [facility] [address] [place] [address] [place] AST [Catalytic activity/Vol] 51 U/L High 10-42 [facility] Comment on above: Order Comment: Reaso n for Exam Elevated liver enzymes;Fatty liver Performed By: #### C BC, CMP, AMM, ADAL, PT, LIPID #### [facility] [address] [place] [id number] [place] Bilirubin [Mass/Vol] 0.7 mg/dL Normal 0.3-1.2 [facility] Comment on above: Order Comment: Reaso n for Exam Elevated liver enzymes;Fatty liver Performed By: #### C BC, CMP, AMM, ADAL, PT, LIPID #### [facility] [address] [place] [id number] [place] Calcium [Mass/Vol] 9.3 mg/dL Normal 8.2-10.2 [facility] Comment on above: Order Comment: Reaso n for Exam Elevated liver enzymes;Fatty liver Performed By: #### C BC, CMP, AMM, ADAL, PT, LIPID #### [facility] [address] Chloride [Moles/Vol] 102 mmol/L Normal 95-114 [facility] Comment on above: Order Comment: Reaso n for Exam Elevated liver enzymes;Fatty liver Performed By: #### C BC, CMP, AMM, ADAL, PT, LIPID #### [facility] [address] CO2 [Moles/Vol] 25.6 mmol/L Normal 22.0-30.0 [facility] Comment on above: Order Comment: Reaso n for Exam Elevated liver enzymes;Fatty liver Performed By: #### C BC, CMP, AMM, ADAL, PT, LIPID #### [address] Creatinine [Mass/Vol] 0.78 mg/dL Normal 0.44-1.03 [facility] Comment on above: Order Comment: Reaso n for Exam Elevated liver enzymes;Fatty liver Performed By: #### C BC, CMP, AMM, ADLA, PT, LIPID #### [address] Estimated GFR ( Daphne > 60 [facility] Comment on above: Order Comment: Reaso n for Exam Elevated liver enzymes;Fatty liver Result Comment: GFR estimated reference range: According to KDOQI guidelines, <60 ml/min/1.73m2 is sufficient to diagnose a patient with chronic kidney disease. Performed By: #### C BC, CMP, AMM, ADAL, PT, LIPID #### [facility] [address] [place] [address] Estimated GFR (Non- Am > 60 Normal [facility] Comment on above: Order Comment: Reaso n for Exam Elevated liver enzymes;Fatty liver Performed By: #### C BC, CMP, AMM, ADAL, PT, LIPID #### [facility] [address] [place] [address] Globulin (S) [Mass/Vol] 2.7 g/dL Normal [facility] Comment on above: Order Comment: Reaso n for Exam Elevated liver enzymes;Fatty liver Performed By: #### C BC, CMP, AMM, ADAL, PT, LIPID #### [facility] [address] Glucose [Mass/Vol] 96 mg/dL Normal 70-100 [facility] Comment on above: Order Comment: Reaso n for Exam Elevated liver enzymes;Fatty liver Result Comment: [facility] Glucose Reference Range is dependent on time and content of last meal. Glucose of more than 200 mg/dL in a nonstressed, ambulatory subject supports the diagnosis of Diabetes Mellitus. ADA recommended reference range Performed By: #### C BC, CMP, AMM, ADAL, PT, LIPID #### [facility] [address] Potassium [Moles/Vol] 4.0 mmol/L Normal 3.5-5.1 [facility] Comment on above: Order Comment: Reaso n for Exam Elevated liver enzymes;Fatty liver Performed By: #### C BC, CMP, AMM, ADAL, PT, LIPID #### [facility] [address] Protein [Mass/Vol] 7.1 g/dL Normal 6.1-7.9 [facility] Comment on above: Order Comment: Reaso n for Exam Elevated liver enzymes;Fatty liver Performed By: #### C BC, CMP, AMM, ADAL, PT, LIPID #### [facility] [address] Sodium [Moles/Vol] 135 mmol/L Low 136-146 [facility] Comment on above: Order Comment: Reaso n for Exam Elevated liver enzymes;Fatty liver Performed By: #### C BC, CMP, AMM, ADAL, PT, LIPID #### [facility] [address] [place] [address] [place] Urea nitrogen [Mass/Vol] 11 mg/dL Normal 9-23 [facility] Comment on above: Order Comment: Reaso n for Exam Elevated liver enzymes;Fatty liver Performed By: #### C BC, CMP, AMM, ADAL, PT, LIPID #### [facility] [address] [place] [id number] [place] Ferritinon 02-20-2022 Ferritin [Mass/Vol] 127.6 ng/mL Normal 11-306.8 [facility] Comment on above: Order Comment: Reaso n for Exam Elevated liver enzymes;Fatty liver Performed By: #### C BC, CMP, AMM, ADAL, PT, LIPID #### [facility] [address] Lipid Panelon 02-20-2022 Cholesterol [Mass/Vol] 226 mg/dL High 140-200 [facility] Comment on above: Order Comment: Reaso n for Exam Elevated liver enzymes;Fatty liver Result Comment: Chol less than 200 mg/dl low risk Chol 201-239 mg/dl borderline risk Chol 240 mg/dl and greater high risk Performed By: #### C BC, CMP, AMM, ADAL, PT, LIPID #### [facility] [address] Cholesterol in HDL [Mass/Vol] 50 mg/dL Normal 35-85 [facility] Comment on above: Order Comment: Reaso n for Exam Elevated liver enzymes;Fatty liver Result Comment: HDL CHOL ATP-III CLASSIFICATION Cardiovascular Risk HDL > or equal to 60 mg/dL LOW HDL < 40 mg/dL HIGH Performed By: #### C BC, CMP, AMM, ADAL, PT, LIPID #### [facility] [address] Cholesterol.total/C holesterol in HDL [Mass ratio] 4.5 {ratio} Normal <5.0 [facility] Comment on above: Order Comment: Reaso n for Exam Elevated liver enzymes;Fatty liver Result Comment: PERF ORMED BY: [place] [address] PATHOLOGIST ELECTRICAL SERVICE TECHNICIAN DAGMAR CANO M.D. Performed By: #### C BC, CMP, AMM, ADAL, PT, LIPID #### [facility] [address] [place] [address] [place] LDL Cholesterol,Calcula john paul 138 mg/dL High 0-100 [facility] Comment on above: Order Comment: Reaso n for Exam Elevated liver enzymes;Fatty liver Result Comment: LDL ATP III CLASSIFICATION LDL less than 100 mg/dL Optimal LDL 100-129 mg/dL Near or above optimal LDL 130-159 mg/dL Borderline high LDL 160-189 mg/dL High LDL greater than 189 mg/dL Very high Performed By: #### C BC, CMP, AMM, ADAL, PT, LIPID #### [address] Triglyceride w/Reflex 188 mg/dL High 35-149 [facility] Comment on above: Order Comment: Reaso n [...] BC, CMP, AMM, ADAL, PT, LIPID #### [address] VLDL CHOLESTEROL 37 mg/dL Normal [facility] Comment on above: Order Comment: Reaso n for Exam Elevated liver enzymes;Fatty liver Performed By: #### C BC, CMP, AMM, ADAL, PT, LIPID #### [address] Prothrombin Time INRon 02-20 INR Coag (PPP) [Relative time] 1.1 {INR} Normal [facility] Comment on above: Order Comment: Reaso n [...] heart valves: 3 - 4.5 PERFORMED BY: [place] [address] PATHOLOGIST ELECTRICAL SERVICE TECHNICIAN DAGMAR CANO M.D. Performed By: #### C BC, CMP, AMM, ADAL, PT, LIPID #### [address] PT Coag (PPP) [Time] 12.1 s Normal 9.0-12.9 [facility] Comment on above: Order Comment: Reaso n for Exam Elevated liver enzymes;Fatty liver Performed By: #### C BC, CMP, AMM, ADAL, PT, LIPID #### [facility] [address] [place] [id number] [facility] MG MAMM SCREEN 3D ENMANEUL CADon 11-05-2021 MG MAMM SCREEN 3D ENMANUEL CAD Patient: NAIMA RIOS Exam Date: 11/05/2021 : 1970 Gender:F Ordering : DR OSCAR NAVARRO . Admission #: [id number] Family : Order #: [id number] CLICK HERE TO VIEW EXAM RADIOLOGY REPORT PROCEDURE: MAMMOGRAM SCREENING 3D BILATERAL CAD COMPARISON: MG MAMM SCREEN ENMANUEL W CAD, 05/14/2019. MAMMO ENMANUEL SCREEN, 07/12/2020. INDICATIONS: Screening mammography Calculator Name NCI Breast Cancer Risk Assessment Tool 5 Year Breast Cancer Risk 1.60% Lifetime Breast Cancer Risk 14.00% Personal Breast Cancer No Personal Ovarian Cancer No Treatments None Family Cancers None LOCATION: [facility] BREAST COMPOSITION: Scattered areas fibroglandular density. FINDINGS: [...] Romeo MD on 11/05/2021 at 10:43 Normal [facility] PAP ACOG PANEL 2: 30 to 65on 11-05-2021 . . Normal [facility] Comment on above: Result Comment: Perf ormed at: WB Performed By: #### [id number] #### [facility] [address] [place] [address] [address] Peg Shelby Age Gdln ACOG Testing 30-65 Normal [facility] Comment on above: Performed By: #### [id number] #### [facility] [address] [place] [address] Dr. Peg Shelby DIAGNOSIS: Comment Normal [facility] Comment on above: Result Comment: NEGA TIVE FOR INTRAEPITHELIAL LESION OR MALIGNANCY. Performed at: WB Performed By: #### [id number] #### [facility] [address] [place] [address] Dr. Peg Shelby HPV Aptima Negative Normal Negative [facility] Comment on above: Result Comment: This nucleic acid amplification test detects fourteen high-risk HPV types (16,18,31,33,35,39,45,51,52,56,58,59,66,68) without differentiation. Performed at: =G Performed By: #### [id number] #### [facility] [address] [place] [address] Dr. Peg Shelby Methodology: Comment Normal [facility] Comment on above: Result Comment: This liquid based ThinPrep(R) pap test was screened with the use of an image guided system. Performed at: WB Performed By: #### [id number] #### [facility] [address] [place] [address] Dr. Peg Shelby Note: Comment Normal [facility] Comment on above: Result Comment: The Pap smear is a screening test designed to aid in the detection of premalignant and malignant conditions of the uterine cervix. It is not a diagnostic procedure and should not be used as the sole means of detecting cervical cancer. Both false-positive and false-negative reports do occur. . Performed at: WB Performed By: #### [id number] #### [facility] [address] [place] [address] Dr. Peg Shelby Performed by: Comment Normal [facility] Comment on above: Result Comment: Janey Gonzalez, [employer] Hrms Developer (ASCP) Performed at: WB Performed By: #### [id number] #### [facility] [address] [place] [address] Dr. Peg Shelby Specimen adequacy: Comment Normal [facility] Comment on above: Result Comment: Sati sfactory for evaluation. Endocervical and/or squamous metaplastic cells (endocervical component) are present. Performed at: WB Performed By: #### [id number] #### [facility] [address] [place] [address] [address] Peg Shelby VAGINITIS/VAGINOSIS DNA PROB Saul 11-02-2021 Sandhya species Negative Normal Negative [facility] Comment on above: Performed By: #### V AGINT #### [facility] [address] [place] [address] [address] Peg Shelby Gardnerella vaginalis Positive Abnormal Negative [facility] Comment on above: Performed By: #### V AGINT #### [facility] [address] [place] [address] [address] Peg Shelby Trichomonas vaginalis Negative Normal Negative [facility] Comment on above: Performed By: #### V AGINT #### [facility] [address] [place] [address] [address] Peg Shelby US SINGLE QUAD RT [...] authenticated by: MONTRELL WU Date: 2021-10-16 07:39 Normal [facility] LIPID PROFILEon 10-11-2021 CHOL-HDL RATIO NORM SEE BELOW Normal [facility] Comment on above: Result Comment: 3.3 - 4.4 LOW RISK 4.4 - 7.1 AVERAGE RISK 7.1 - 11.0 MODERATE RISK >11.0 HIGH RISK Performed By: #### L IPID, CMP #### [facility] [address] [place] [address] [address] Peg Shelby Cholesterol [Mass/Vol] 235 mg/dL Critically high <=200 [facility] Comment on above: Performed By: #### L IPID, CMP #### [facility] [address] [place] [address] [address] Peg Shelby Cholesterol in HDL [Mass/Vol] 42 mg/dL Normal 40-60 [facility] Comment on above: Performed By: #### L IPID, CMP #### [facility] [address] [place] [address] [address] Peg Shelby Cholesterol in LDL [Mass/Vol] 139.8 mg/dL Normal [facility] Comment on above: Performed By: #### L IPID, CMP #### [facility] [address] [place] [address] [address] Peg Shelby Cholesterol.total/C holesterol in HDL [Mass ratio] 5.6 {ratio} Normal [facility] Comment on above: Performed By: #### L IPID, CMP #### [facility] [address] [place] [address] [address] Peg Shelby HDL NORMAL > or = 60 mg/dl - LO W CARDIOVASCULAR RISK <40 mg/dl - HIGH CARDIOVASCULAR RISK Normal [facility] Comment on above: Performed By: #### L IPID, CMP #### [facility] [address] [place] [address] [address] Peg Shelby LDL CALC NORMAL SEE BELOW Normal [facility] Comment on above: Result Comment: <100 mg/dl OPTIMAL 100 - 129 mg/dl NEAR OR ABOVE OPTIMAL 130 - 159 mg/dl BORDERLINE HIGH 160 - 189 mg/dl HIGH >190 mg/dl VERY HIGH Performed By: #### L IPID, CMP #### [facility] [address] [place] [address] [address] Peg Shelby Triglyceride [Mass/Vol] 266 mg/dL Critically high <=150 [facility] Comment on above: Performed By: #### L IPID, CMP #### [facility] [address] [place] [address] [address] Peg Shelby VLDL CALC 53.2 mg/dL Normal [facility] Comment on above: Performed By: #### L IPID, CMP #### [facility] [address] [place] [address] [address] Peg Shelby PROF 14(COMP METB)on 022 Albumin [Mass/Vol] 3.9 g/dL Normal 3.4-5.0 [facility] Comment on above: Performed By: #### L IPID, CMP #### [facility] [address] [place] [address] [address] Peg Shelby Albumin/Globulin [Mass ratio] 1.1 {ratio} Normal [facility] Comment on above: Performed By: #### L IPID, CMP #### [facility] [address] [place] [address] Dr. Peg Shelby ALP [Catalytic activity/Vol] 90 U/L Normal 46-116 [facility] Comment on above: Performed By: #### L IPID, CMP #### [facility] [address] [place] [address] Dr. Peg Shelby ALT [Catalytic activity/Vol] 131 U/L Critically high 14-59 [facility] Comment on above: Performed By: #### L IPID, CMP #### [facility] [address] [place] [address] Dr. Peg Shelby Anion gap [Moles/Vol] 10.7 mmol/L Normal [facility] Comment on above: Performed By: #### L IPID, CMP #### [facility] [address] [place] [address] [address] Peg Shelby AST [Catalytic activity/Vol] 78 U/L Critically high 15-37 [facility] Comment on above: Performed By: #### L IPID, CMP #### [facility] [address] [place] [address] [address] Peg Shelby Bilirubin [Mass/Vol] 0.5 mg/dL Normal 0.2-1.0 [facility] Comment on above: Performed By: #### L IPID, CMP #### [facility] [address] [place] [address] Dr. Peg Shelby Calcium [Mass/Vol] 8.6 mg/dL Normal 8.5-10.1 [facility] Comment on above: Performed By: #### L IPID, CMP #### [facility] Laboratory [address] [place] [address] Dr. Peg Shelby Chloride [Moles/Vol] 104 mmol/L Normal 98-107 [facility] Comment on above: Performed By: #### L IPID, CMP #### [facility] [address] [place] [address] Dr. Peg Shelby CO2 [Moles/Vol] 29.5 mmol/L Normal 21.0-32.0 [facility] Comment on above: Performed By: #### L IPID, CMP #### [facility] [address] [place] [address] Dr. Peg Shelby Creatinine [Mass/Vol] 0.83 mg/dL Normal 0.55-1.02 [facility] Comment on above: Performed By: #### L IPID, CMP #### [facility] [address] [place] [address] Dr. Peg Shelby EGFR-AF CHINESE >60 Normal >=60 [facility] Comment on above: Performed By: #### L IPID, CMP #### [facility] [address] [place] [address] Dr. Peg Shelby EGFR-NON AF CHINESE >60 Normal >=60 [facility] Comment on above: Performed By: #### L IPID, CMP #### [facility] [address] [place] [address] Dr. Peg Shelby Globulin (S) [Mass/Vol] 3.4 g/dL Normal [facility] Comment on above: Performed By: #### L IPID, CMP #### [facility] [address] [place] [address] Dr. Peg Shelby Glucose [Mass/Vol] 108 mg/dL Critically high 74-106 [facility] Comment on above: Performed By: #### L IPID, CMP #### [facility] [address] [place] [address] Dr. Peg Shelby Potassium [Moles/Vol] 4.2 mmol/L Normal 3.5-5.1 [facility] Comment on above: Performed By: #### L IPID, CMP #### [facility] [address] [place] [address] Dr. Peg Shelby Protein [Mass/Vol] 7.3 g/dL Normal 6.4-8.2 [facility] Comment on above: Performed By: #### L IPID, CMP #### [facility] [address] [place] [address] Dr. Peg Shelby Sodium [Moles/Vol] 140 mmol/L Normal 136-145 [facility] Comment on above: Performed By: #### L IPID, CMP #### [facility] [address] [place] [address] Dr. Peg Shelby Urea nitrogen [Mass/Vol] 14.0 mg/dL Normal 7.0-18.0 [facility] Comment on above: Performed By: #### L IPID, CMP #### [facility] [address] [place] [address] Dr. Peg Shelby Urea nitrogen/Creatinine [Mass ratio] 16.9 mg/mg Normal [facility] Comment on above: Performed By: #### L IPID, CMP #### [facility] [address] [place] [address] Dr. Peg Shelby LIPID PROFILEon 03-20-2021 CHOL-HDL RATIO NORM SEE BELOW Normal [facility] Comment on above: Result Comment: 3.3 - 4.4 LOW RISK 4.4 - 7.1 AVERAGE RISK 7.1 - 11.0 MODERATE RISK >11.0 HIGH RISK Performed By: #### C MP, LIPID #### [facility] [address] [place] [address] Dr. Peg Shelby Cholesterol [Mass/Vol] 245 mg/dL Critically high <=200 [facility] Comment on above: Performed By: #### C MP, LIPID #### [facility] [address] [place] [address] Dr. Peg Shelby Cholesterol in HDL [Mass/Vol] 42 mg/dL Normal [facility] Comment on above: Performed By: #### C MP, LIPID #### [facility] [address] [address] [address] Peg Shelby Cholesterol in LDL [Mass/Vol] 144.8 mg/dL Normal [facility] Comment on above: Performed By: #### C MP, LIPID #### [facility] [address] [address] [address] Peg Shelby Cholesterol.total/C holesterol in HDL [Mass ratio] 5.8 {ratio} Normal [facility] Comment on above: Performed By: #### C MP, LIPID #### [facility] [address] [address] [address] Peg Shelby HDL NORMAL > or = 60 mg/dl - LO W CARDIOVASCULAR RISK <40 mg/dl - HIGH CARDIOVASCULAR RISK Normal [facility] Comment on above: Performed By: #### C MP, LIPID #### [facility] [address] [address] [address] Peg Shelby LDL CALC NORMAL SEE BELOW Normal [facility] Comment on above: Result Comment: <100 mg/dl OPTIMAL 100 - 129 mg/dl NEAR OR ABOVE OPTIMAL 130 - 159 mg/dl BORDERLINE HIGH 160 - 189 mg/dl HIGH >190 mg/dl VERY HIGH Performed By: #### C MP, LIPID #### [facility] [address] [place] [address] Dr. Peg Shelby Triglyceride [Mass/Vol] 291 mg/dL Critically high <=150 [facility] Comment on above: Performed By: #### C MP, LIPID #### [facility] [address] [address] [address] Peg Shelby VLDL CALC 58.2 mg/dL Normal [facility] Comment on above: Performed By: #### C MP, LIPID #### [facility] [address] [place] [address] Dr. Peg Shebly PROF 14(COMP METB)on 021 Albumin [Mass/Vol] 4.0 g/dL Normal 3.5-5.0 [facility] Comment on above: Performed By: #### C MP, LIPID #### [facility] [address] [address] [address] Peg Shelby Albumin/Globulin [Mass ratio] 1.1 {ratio} Normal [facility] Comment on above: Performed By: #### C MP, LIPID #### [facility] [address] [address] [address] Peg Shelby ALP [Catalytic activity/Vol] 88 U/L Normal 38-126 [facility] Comment on above: Performed By: #### C MP, LIPID #### [facility] [address] [place] [address] Dr. Peg Shelby ALT [Catalytic activity/Vol] 112 U/L Critically high 9-52 [facility] Comment on above: Performed By: #### C MP, LIPID #### [facility] [address] [place] [address] Dr. Peg Shelby Anion gap [Moles/Vol] 12.5 mmol/L Normal [facility] Comment on above: Performed By: #### C MP, LIPID #### [facility] [address] [place] [address] Dr. Peg Shelby AST [Catalytic activity/Vol] 52 U/L Critically high 14-36 [facility] Comment on above: Performed By: #### C MP, LIPID #### [facility] [address] [place] [address] Dr. Peg Shelby Bilirubin [Mass/Vol] 0.5 mg/dL Normal 0.2-1.3 [facility] Comment on above: Performed By: #### C MP, LIPID #### [facility] [address] [place] [address] Dr. Peg Shelby Calcium [Mass/Vol] 8.9 mg/dL Normal 8.4-10.2 [facility] Comment on above: Performed By: #### C MP, LIPID #### [facility] [address] [place] [address] Dr. Peg Shelby Chloride [Moles/Vol] 104 mmol/L Normal 98-107 [facility] Comment on above: Performed By: #### C MP, LIPID #### [facility] [address] [place] [address] Dr. Peg Shelby CO2 [Moles/Vol] 30.5 mmol/L Critically high 22.0-30.0 [facility] Comment on above: Performed By: #### C MP, LIPID #### [facility] [address] [place] [address] Dr. Peg Shelby Creatinine [Mass/Vol] 0.82 mg/dL Normal 0.52-1.04 [facility] Comment on above: Performed By: #### C MP, LIPID #### [facility] [address] [address] [address] Peg Shelby EGFR-AF CHINESE >60 Normal >=60 [facility] Comment on above: Performed By: #### C MP, LIPID #### [facility] [address] [place] [address] Dr. Peg Shelby EGFR-NON AF CHINESE >60 Normal >=60 [facility] Comment on above: Performed By: #### C MP, LIPID #### [facility] [address] [address] [address] Peg Shelby Globulin (S) [Mass/Vol] 3.7 g/dL Normal [facility] Comment on above: Performed By: #### C MP, LIPID #### [facility] [address] [address] [address] Peg Shelby Glucose [Mass/Vol] 118 mg/dL Critically high 74-106 [facility] Comment on above: Performed By: #### C MP, LIPID #### [facility] [address] [address] [address] Peg Shelby Potassium [Moles/Vol] 4.0 mmol/L Normal 3.4-5.0 [facility] Comment on above: Performed By: #### C MP, LIPID #### [facility] [address] [address] [address] Peg Shelby Protein [Mass/Vol] 7.7 g/dL Normal 6.1-8.2 [facility] Comment on above: Performed By: #### C MP, LIPID #### [facility] [address] [place] [address] Dr. Peg Shelby Sodium [Moles/Vol] 143 mmol/L Normal 137-145 [facility] Comment on above: Performed By: #### C MP, LIPID #### [facility] [address] [address] [address] Peg Shelby Urea nitrogen [Mass/Vol] 13.0 mg/dL Normal 7.0-17.0 [facility] Comment on above: Performed By: #### C MP, LIPID #### [facility] [address] [address] [address] Peg Shelby Urea nitrogen/Creatinine [Mass ratio] 15.9 mg/mg Normal [facility] Comment on above: Performed By: #### C MP, LIPID #### [facility] [address] [address] [address] Peg Shelby 2019 Novel Coronavirus (CoVI D-19), LUCINDA LCon 12-23-2019 SARS-CoV-2, LUCINDA (COVID-19) LC Detected Abnormal Not Detected [facility] Comment on above: Order Comment: [id number] Results Called To July at Dr. Alba's By JOSUE And Read Back For Confirmation On 12/23/2019 11:38:22 EDT. Result Comment: This test was developed and its performance characteristics determined by [employer]. This test has not been FDA cleared [...] detected) result in this assay. Performed At: [facility] [address] [place] [id number] Kenna Bach MD Ph:[phone] Performed By: #### [id number] #### [facility] (DEFAULT) [address] [place], [place] [id number] Coding Summaryon 12-22-2019 Coding Summary CODING DATE: 020 [facility] STATUS: Home PAYOR: Commercial Insurance ADMIT DX: [...] Sheryl Lovett Date Saved: 12/22/2019 01:57 pm [facility] Consent Formson 12-22-2019 Consent Forms [id number] TGTIFF [facility] Vital Signs Date Time Vital Sign Value Performing Clinician Facility 09-01-2024 13:28-0400 Body height 160 cm Enrique Alba MD Work Phone: [facility] 09-01-2024 13:28-0400 Body mass index (BMI) [Ratio] 48.71 kg/m2 Enrique Alba MD Work Phone: [facility] 09-01-2024 13:28-040 Body weight 124.74 kg Enrique Alba MD Work Phone: [facility] 09-01-2024 13:28-040 Heart rate 77 /min Enrique Alba MD Work Phone: [facility] 09-01-2024 13:28-0400 SaO2% (BldA) [Mass fraction] 97 % Enrique Alba MD Work Phone: [facility] 08-02-2024 15:24-0400 Body height 160 cm Enrique Alba MD Work Phone: [facility] 08-02-2024 15:24-0400 Body mass index (BMI) [Ratio] 48.71 kg/m2 Enrique Alba MD Work Phone: [facility] 08-02-2024 15:24-0400 Body weight 124.74 kg Enrique Alba MD Work Phone: [facility] 08-02-2024 15:24-0400 Diastolic blood pressure 80 mm[Hg] Enirque Alba MD Work Phone: [facility] 08-02-2024 15:24-0400 Heart rate 90 /min Enrique Alba MD Work Phone: [facility] 08-02-2024 15:24-0400 SaO2% (BldA) [Mass fraction] 97 % Enrique Alba MD Work Phone: [facility] 08-02-2024 15:24-0400 Systolic blood pressure 136 mm[Hg] Enrique Alba MD Work Phone: [facility] 06-15-2024 18:15-0500 Body temperature 97.2 [degF] Luis Eduardo Levine [employer] Work Phone: [facility] 06-15-2024 18:15-0500 Diastolic blood pressure 90 mm[Hg] Luis Eduardoregi Levine [employer] FI[employer] SPECIALIST Work Phone: [facility] 06-15-2024 18:15-0500 Heart rate 88 /min Luis Eduardo Levine [employer] FI[employer] SPECIALIST Work Phone: [facility] 06-15-2024 18:15-0500 SaO2% (BldA) [Mass fraction] 98 % Luis Eduardo Julián [employer] FI[employer]IST Work Phone: [facility] 06-15-2024 18:15-0500 Systolic blood pressure 138 mm[Hg] Luis Eduardo Levine [employer] FI[employer] SPECIALIST Work Phone: [facility] 04-17-2024 10:20-0500 Body mass index (BMI) [Ratio] 48.86 kg/m2 Beatriz Rankin [employer] FI[employer]IST Work Phone: [facility] 04-17-2024 10:20-0500 Body temperature 97.59 [degF] Beatriz Rankin [employer] FI[employer] SPECIALIST Work Phone: [facility] 04-17-2024 10:20-0500 Body weight 125.1 kg Beatriz Rankin [employer] FI[employer] SPECIALIST Work Phone: [facility] 04-17-2024 10:20-0500 Diastolic blood pressure 84 mm[Hg] Beatriz Rankin [employer] FI[employer]IST Work Phone: [facility] 04-17-2024 10:20-0500 Heart rate 100 /min Beatriz Rankin [employer] FI[employer] SPECIALIST Work Phone: [facility] 04-17-2024 10:20-0500 SaO2% (BldA) [Mass fraction] 97 % Beatriz Rankin [employer] FI[employer] SPECIALIST Work Phone: [facility] 04-17-2024 10:20-0500 Systolic blood pressure 138 mm[Hg] Beatriz Rankin [employer] FI[employer] SPECIALIST Work Phone: [facility] 04-05-2024 13:48-0500 Body height 160 cm Enrique Alba MD Work Phone: [facility] 04-05-2024 13:48-0500 Body mass index (BMI) [Ratio] 36.31 kg/m2 Enrique Alba MD Work Phone: [facility] 04-05-2024 13:48-0500 Body weight 92.99 kg Enrique Alba MD Work Phone: [facility] 04-05-2024 13:48-0500 Heart rate 93 /min Enrique Alba MD Work Phone: [facility] 04-05-2024 13:48-0500 SaO2% (BldA) [Mass fraction] 95 % Enrique Alba MD Work Phone: [facility] 03-29-2024 11:40-0500 Body mass index (BMI) [Ratio] 36.34 kg/m2 Janey Schenectady PA Work Phone: [facility] 03-29-2024 11:40-0500 Body weight 93.04 kg Janey Trejoey PA Work Phone: [facility] 03-29-2024 11:40-0500 Diastolic blood pressure 90 mm[Hg] Janey Davis PA Work Phone: [facility] 03-29-2024 11:40-0500 Systolic blood pressure 138 mm[Hg] Janey Davis PA Work Phone: [facility] 03-11-2024 14:26-0500 Body height 160 cm Enrique Alba MD Work Phone: [facility] 03-11-2024 14:26-0500 Body mass index (BMI) [Ratio] 49.6 kg/m2 Enrique Alba MD Work Phone: [facility] 03-11-2024 14:26-0500 Body weight 127.01 kg Enrique Alba MD Work Phone: [facility] 02-25-2024 15:35-0400 Body height 160 cm Enrique Alba MD Work Phone: [facility] 02-25-2024 15:35-0400 Body mass index (BMI) [Ratio] 49.6 kg/m2 Enrique Alba MD Work Phone: [facility] 02-25-2024 15:35-0400 Body weight 127.01 kg Enrique Alba MD Work Phone: [facility] 02-25-2024 15:35-0400 Diastolic blood pressure 78 mm[Hg] Enrique Alba MD Work Phone: [facility] 02-25-2024 15:35-0400 Heart rate 97 /min Enrique Alba MD Work Phone: [facility] 02-25-2024 15:35-0400 SaO2% (BldA) [Mass fraction] 99 % Enrique Alba MD Work Phone: [facility] 02-25-2024 15:35-0400 Systolic blood pressure 132 mm[Hg] Enrique Alba MD Work Phone: [facility] 12-16-2023 16:24-0400 Body height 160 cm Enrique Alba MD Work Phone: [facility] 12-16-2023 16:24-0400 Body mass index (BMI) [Ratio] 46.06 kg/m2 Enrique Alba MD Work Phone: [facility] 12-16-2023 16:24-0400 Body weight 117.94 kg Enrique Alba MD Work Phone: [facility] 12-05-2022 14:03-0400 Body height 160 cm Taylor [...] Body height 160.02 cm Ernie Fuller Other [facility] 05-07-2022 14:00-0500 Body mass index (BMI) [Ratio] 46.05 kg/m2 Ernie Fuller Other [facility] 05-07-2022 14:00-0500 Body weight 117.94 kg Ernie Fuller Other [facility] 05-07-2022 14:00-0500 Diastolic blood pressure 109 mm[Hg] Ernie Fuller Other [facility] 05-07-2022 14:00-0500 Systolic blood pressure 172 mm[Hg] Ernie uFller Other [facility] Other 01-30-2022 10:45-0400 Body height 160.02 cm Ernie Fuller Other [facility] Other 01-30-2022 10:45-0400 Body mass index (BMI) [Ratio] 47.29 kg/m2 Ernie Fuller Other [facility] Other 01-30-2022 10:45-0400 Body weight 121.11 kg Ernie Fuller Other [facility] Other Encounters Encounter Date Encounter Type Care Provider Facility Start: 09-01-2024 End: 09-01-2024 Bamboo flowsoral Alba MD Work Phone: [facility] Start: 09-01-2024 End: 09-01-2024 Bamboo flowsheet Enrique Alba MD Work Phone: [facility] Start: 09-01-2024 End: 09-01-2024 Office outpatient visit 25 minutes Enrique Alba MD Work Phone: [facility] Comment on above: Palpitations (Primar y Dx); Tachycardia Start: 09-01-2024 End: 09-01-2024 ambulatory ENRIQUE ALBA Not Available Start: 08-02-2024 End: 08-02-2024 Office outpatient visit 25 minutes Enrique Alba MD Work Phone: [facility] Comment on above: Restless leg syndrom e (Primary Dx); Other chronic pain; Insomnia due to other mental disorder; Recurrent major depressive disorder, in partial remission (HCC) ([facility]); Primary hypertension ([facility]); Mixed dyslipidemia ([facility]); Pre-diabetes; Morbid obesity ([facility]); Adult BMI 45.0-49.9 kg/sq m ([facility]/HCC) Start: 08-02-2024 End: 08-02-2024 ambulatory ENRIQUE ALBA Not Available Start: 08-02-2024 End: 08-02-2024 Bamboo flowsheet Enrique Alba MD Work Phone: [facility] Start: 08-02-2024 End: 08-02-2024 Bamboo flowsheet Enrique Alba MD Work Phone: [facility] Start: 06-16-2024 End: 06-16-2024 Telephone encounter Luis Eduardo Levine [employer]IST Work Phone: [facility] Start: 06-15-2024 End: 06-15-2024 Office outpatient visit 25 minutes Luis Eduardo Levine [employer]IST Work Phone: [facility] Comment on above: Left foot pain (Prim bennie Dx); Strain of left foot, initial encounter Start: 06-15-2024 End: 06-15-2024 ambulatory LUIS EDUARDO LEVINE Not Available Start: 05-09-2024 End: 05-11-2024 Refill Enrique Alba MD Work Phone: [facility] Comment on above: Pre-diabetes Start: 04-17-2024 End: 04-17-2024 ambulatory BEATRIZ RANKIN Not Available Start: 04-17-2024 End: 04-17-2024 Office outpatient visit 25 minutes Beatriz Rankin [employer]IST Work Phone: [facility] Comment on above: Acute pain of left k nee (Primary Dx) Start: 04-05-2024 End: 04-05-2024 Bamboo flowsheet Enrique Alba MD Work Phone: [facility] Start: 04-05-2024 End: 04-05-2024 Bamboo flowsheet Enrique Alba MD Work Phone: [facility] Start: 04-05-2024 End: 04-05-2024 ambulatory ENRIQUE ALBA Not Available Start: 04-05-2024 End: 04-05-2024 Office outpatient visit 15 minutes Enrique Alba MD Work Phone: [facility] Comment on above: Acute non-recurrent pansinusitis (Primary Dx) Start: 03-31-2024 End: 03-31-2024 Orders Only Enrique Alba MD Work Phone: [facility] Comment on above: Pre-diabetes Start: 03-29-2024 End: 03-29-2024 Bamboo flowsheet Janey RILEY Work Phone: [facility] Start: 03-29-2024 End: 04-03-2024 Bamboo flowsheet Janey RILEY Work Phone: [facility] Start: 03-29-2024 End: 04-03-2024 Clinisync Result Encounter Generic External Data Provider [facility] External Department Unsolicited Start: 03-29-2024 End: 03-29-2024 Patient encounter procedure Janey RILEY Work Phone: [facility] Work Phone: Start: 03-29-2024 End: 03-29-2024 Periodic preventive med est patient 40-64yrs Janey RILEY Work Phone: [facility] Comment on above: Well woman exam with routine gynecological exam; Yeast infection of the skin Start: 03-29-2024 End: 03-29-2024 ambulatory JANEY DAVIS Not Available Start: 03-13-2024 End: 03-15-2024 Refill Enrique Alba MD Work Phone: [facility] [...] Not Available Start: 02-25-2024 End: 02-25-2024 Bamboo flowsheet Enrique Alba MD Work Phone: [facility] Start: 02-25-2024 End: 02-25-2024 Bamboo flowsheet Enrique Alba MD Work Phone: [facility] Start: 12-25-2023 End: 12-25-2023 Telephone encounter Enrique Alba MD Work Phone: [facility] Start: 12-16-2023 End: 12-16-2023 ambulatory ENRIQUE ALBA Not Available Start: 12-16-2023 End: 12-16-2023 Office outpatient visit 15 minutes Enrique Alba MD Work Phone: [facility] Comment on above: Insomnia due to othe r mental disorder; Recurrent major depressive disorder, in partial remission (HCC) (CMS/HCC); Morbid obesity (CMS/HCC); Adult BMI 45.0-49.9 kg/sq m (CMS/HCC) Start: 12-05-2022 End: 12-05-[address] Work Phone: Nutrition Therapy Comment on above: Fatty liver Start: 12-05-2022 End: 12-05-2022 Telemedicine consultation with patient Taylor Gee RD Work Phone: [facility] Start: 10-30-2022 End: 10-30-2022 ambulatory RADHA RIOS Facility:[facility] Start: 10-30-2022 End: 10-30-2022 Patient encounter procedure Radha Rios MD Work Phone: Gastroenterology Comment on above: Fatty liver (Primary Dx); Class 3 severe obesity due to excess calories in adult, unspecified BMI, unspecified whether serious comorbidity present (HCC) Start: 08-01-2022 End: 08-01-2022 ambulatory MARIAJOSE ASHER Facility:[facility] Start: 08-01-2022 End: 08-01-2022 Patient encounter procedure Mariajose Asher MD Work Phone: Rheumatology Comment on above: 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); Primary osteoarthritis involving multiple joints; NSAID long-term use Start: 06-17-2022 End: 06-17-2022 ambulatory Ben Li Other [facility] Other Start: 06-17-2022 Telephone encounter Ben Henry [facility] Start: 05-07-2022 End: 05-07-2022 ambulatory Ernie Fuller Other [facility] Other Start: 05-07-2022 Office outpatient vi sit 25 minutes Ernie Fuller [facility] Start: 02-20-2022 End: 02-20-2022 ambulatory Enrique Alba Facility:[facility] Start: 01-30-2022 End: 01-30-2022 ambulatory Ernie Fuller Other [facility] Other Start: 01-30-2022 Office outpatient ne w 45 minutes Ernie Fuller [facility] Start: 11-05-2021 End: 11-06-[address] OSCAR NAVARRO Facility:[facility] Start: 11-01-2021 End: 11-01-[address] ENRIQUE ALBA Facility:[facility] Start: 10-16-2021 End: 10-17-[address] ENRIQUE ALBA Facility:[facility] Start: 10-11-2021 End: 10-12-[address] ENRIQUE ALBA Facility:[facility] Start: 03-20-2021 End: 03-21-[address] ENRIQUE ALBA Facility:[facility] Procedures Date Procedure Procedure Detail Performing Clinician Start: 04-17-2024 Radiologic examination knee 3 views Beatriz Rankin [employer] Work Phone: Start: 03-29-2024 IGP,APTIMA HPV,AGE GDLN Janey RILEY Work Phone: Start: 03-29-2024 Microscopic observation [Identifier] in Cervix by Cyto stain Enrique Alba MD Work Phone: Start: 03-05-2024 ALL LIPID PROFILE (FASTING) Enrique Alba MD Work Phone: Start: 03-05-2024 [facility] CMP (CMP) (FOR [facility] USE) Enrique Alba MD Work Phone: Start: 03-05-2024 Mammography Enrique Alba MD Work Phone: Start: 11-01-2022 Microscopic observation [Identifier] in Cervix by Cyto stain Janey RILEY Work Phone: Start: 09-17-2022 History of operative procedure on knee Status post bilateral knee replacements Enrique Alba MD Work Phone: Start: 11-05-2021 Mammography Enrique Alba MD Work Phone: Start: 07-12-[address] Work Phone: Plan of Treatment Date Care Activity Detail Author Start: 03-29-2027 Screening for malign ant neoplasm of cervix [facility] Start: 09-18-2026 Screening for malign ant neoplasm of colon [facility] Start: 11-01-2025 Screening for malign ant neoplasm of cervix [facility] Start: 04-04-2025 End: 04-04-2025 Patient encounter procedure 04/04/2025 3:00 PM EST Office Visit [facility] [address] [place] [address] Janey Davis PA [address] [place] [place] [address] [facility] Start: 03-05-2025 Screening for malign ant neoplasm of breast Mammogram [facility] Start: 09-01-2024 End: 09-01-2025 Holter monitor study Holter monitor Imaging Routine Palpitations Tachycardia Expected: 09/01/2024 (Approximate), Expires: 09/01/2025 [facility] Work Phone: Comment on above: Expected: 09/01/2024 (Approximate), Expires: 09/01/2025 Start: 09-01-2024 End: 09-01-2024 Patient encounter procedure 09/01/2024 1:45 PM EDT Office Visit [facility] [address] [place] [address] Enrique Alba MD [address] [place] [address] Arrived [facility] Comment on above: Arrived Start: 08-02-2024 End: 08-02-2024 Patient encounter procedure 08/02/2024 3:30 PM EDT Office Visit [facility] [address] [place] [address] Enrique Alba MD [address] [place] [address] Primary hypertension (CMS/HCC); Mixed dyslipidemia (CMS/HCC); Pre-diabetes; Glucose intolerance (impaired glucose tolerance); Recurrent major depressive disorder, in partial remission (HCC) (CMS/HCC); Insomnia due to other mental disorder; Morbid obesity (CMS/HCC); Adult BMI 45.0-49.9 kg/sq m (CMS/HCC) [facility] Comment on above: Primary hypertension (CMS/HCC); Mixed dyslipidemia (CMS/HCC); Pre-diabetes; Glucose intolerance (impaired glucose tolerance); Recurrent major depressive disorder, in partial remission (HCC) (CMS/HCC); Insomnia due to other mental disorder; Morbid obesity (CMS/HCC); Adult BMI 45.0-49.9 kg/sq m (CMS/HCC) Start: 08-02-2024 End: 08-02-2025 CBC W Auto Differential panel - Blood CBC and differential Lab Routine Restless leg syndrome Expected: 08/02/2024 (Approximate), Expires: 08/02/2025 [facility] Work Phone: Comment on above: Expected: 08/02/2024 (Approximate), Expires: 08/02/2025 Start: 08-02-2024 End: 08-02-2025 Iron and Iron binding capacity panel - Serum or Plasma Iron and TIBC Lab Routine Restless leg syndrome Expected: 08/02/2024 (Approximate), Expires: 08/02/2025 [facility] Comment on above: Expected: 08/02/2024 (Approximate), Expires: 08/02/2025 Start: 03-29-2024 End: 03-29-2024 Patient encounter procedure [facility] Comment on above: Arrived Start: 03-18-2024 Screening for malign ant neoplasm of cervix [facility] Start: 02-26-2024 End: 02-25-2025 Comprehensive metabolic 2000 panel - Serum or Plasma Comprehensive metabolic panel Lab Routine Glucose intolerance (impaired glucose tolerance) Primary hypertension (CMS/HCC) Expected: 02/26/2024 (Approximate), Expires: 02/25/2025 [facility] Work Phone: Comment on above: Expected: 02/26/2024 (Approximate), Expires: 02/25/2025 Start: 02-26-2024 End: 04-27-2025 DBT Breast - bilateral screening Bilateral screening mammogram with tomosynthesis Imaging Routine Screening mammogram for breast cancer Expected: 02/26/2024 (Approximate), Expires: 04/27/2025 [facility] Comment on above: Expected: 02/26/2024 (Approximate), Expires: 04/27/2025 Start: 02-26-2024 End: 02-25-2025 DXA Skeletal system Views for bone density DEXA bone density Imaging Routine Menopausal and female climacteric states Osteoporosis screening Encounter for follow-up examination after completed treatment for conditions other than malignant neoplasm Expected: 02/26/2024 (Approximate), Expires: 02/25/2025 [facility] Comment on above: Expected: 02/26/2024 (Approximate), Expires: 02/25/2025 Start: 02-26-2024 End: 02-25-2025 Lipid 1996 panel - Serum or Plasma Lipid panel Lab Routine Mixed hyperlipidemia (CMS/HCC) Expected: 02/26/2024 (Approximate), Expires: 02/25/2025 [facility] Comment on above: Expected: 02/26/2024 (Approximate), Expires: 02/25/2025 Start: 02-25-2024 End: 02-25-2024 Patient encounter procedure 02/25/2024 3:30 PM EDT Office Visit [facility] [address] [facility] [address] [place] [address] Enrique Alba MD [address] [facility] [address] [place] [address] Encounter for wellness examination in adult; Advance directive discussed with patient; Morbid obesity (CMS/HCC); Adult BMI 45.0-49.9 kg/sq m (CMS/HCC) [facility] Comment on above: Encounter for wellne ss examination in adult; Advance directive discussed with patient; Morbid obesity (CMS/HCC); Adult BMI 45.0-49.9 kg/sq m (CMS/HCC) Start: 12-28-2023 Influenza vaccination Influenza Vacc ine (#1) [facility] Start: 12-27-2022 Influenza vaccination INFLUENZA (#1) [facility] Start: 11-05-2022 Screening for malign ant neoplasm of breast Mammogram [facility] Start: 10-30-2022 End: 12-30-2022 CELIAC SCREEN WITH REFLEX CELIAC SCREEN WITH REFLEX Lab Routine Fatty liver Expected: 10/30/2022, Expires: 12/30/2022 [facility] Work Phone: Comment on above: Expected: 10/30/2022 , Expires: 12/30/2022 Start: 10-30-2022 End: 12-30-2022 Comprehensive metabolic 2000 panel - Serum or Plasma COMP METABOLIC PANEL Lab Routine Fatty liver Expected: 10/30/2022, Expires: 12/30/2022 [facility] Work Phone: Comment on above: Expected: 10/30/2022 , Expires: 12/30/2022 Start: 10-30-2022 End: 12-30-2022 HEPATITIS A ANTIBODY, IGG HEPATITIS A ANTIBODY, IGG Lab Routine Fatty liver Expected: 10/30/2022, Expires: 12/30/2022 [facility] Work Phone: Comment on above: Expected: 10/30/2022 , Expires: 12/30/2022 Start: 04-28-2022 DEPRESSION ASSESSMENT DEPRESSION ASS ESSMENT [facility] Start: 07-12-2021 Mammography MAMMOGRAM [facility] Start: 2020 SHINGRIX VACCINE (1 of 2) SHINGRIX VACCINE (1 of 2) [facility] Start: 03-31-2016 DIABETES SCREEN DIABETES SCREEN [facility] Start: 09-25-2015 COLOGUARD (FIT-DNA) COLOGUARD (FIT-D NA) [facility] Start: 09-25-2015 Colonoscopy COLONOSCOPY [facility] Start: 09-25-2015 COLORECTAL CANCER SCREENING COLORECTAL CANCER SCREENING [facility] Start: 09-25-[address] COLONOGRAPHY [facility] Start: 09-25-2015 FECAL OCCULT BLOOD FECAL OCCULT BLOO D [facility] Start: 09-25-2015 LIPID SCREEN LIPID SCREEN [facility] Start: 09-25-2015 SIGMOIDOSCOPY SIGMOIDOSCOPY [facility] Start: 2010 Mammography MAMMOGRAM [facility] Start: 2000 HPV TESTING HPV TESTING [facility] Start: 09-25-1991 PAP TESTING PAP TESTING [facility] Start: 09-25-1991 Screening for malign ant neoplasm of cervix Pap Smear [facility] Start: 1989 Urine microalbumin profile DTAP,TDAP,TD (1 - Tdap) [facility] Start: 1988 HEPATITIS C SCREENING HEPATITIS C SC MARISELNING [facility] Start: 1988 HIV SCREENING HIV SCREENING [facility] Start: 1970 HEPATITIS B (1 of 3 - 3-dose series) HEPATITIS B (1 of 3 - 3-dose series) [facility] Start: 1970 Screening for malign ant neoplasm of colon [facility] THIN PREP TIS PAP AN D HR HPV DNA THIN PREP TIS PAP AND HR HPV DNA Pathology and Cytology Routine Well woman exam with routine gynecological exam Ordered: 03/29/2024 [facility] Work Phone: Comment on above: Ordered: 03/29/2024 [facility] Immunizations Immunization Date Immunization Notes Care Provider Wilfredo simmons 01-05-2024 influenza, injectabl e, madin francesca canine kidney, preservative free Enrique Alba MD Work Phone: [facility] 01-20-2023 Influenza, injectabl e, Madin Francesca Canine Kidney, preservative free, quadrivalent Enrique Alba MD Work Phone: [facility] 01-20-2023 influenza virus vacc ine, unspecified formulation Enrique Alba MD Work Phone: [facility] 01-15-2022 Influenza, injectabl e, Madin Francesca Canine Kidney, preservative free, quadrivalent Enrique Alba MD Work Phone: [facility] 01-15-2022 SARS-COV-2 (COVID-19 ) vaccine, mRNA, spike protein, LNP, bivalent, preservative free, 30 mcg/0.3 mL dose, joyce-sucrose formulation Enrique Alba MD Work Phone: [facility] 02-10-2021 zoster vaccine recombinant Enrique Alba MD Work Phone: [facility] 01-27-2021 influenza, injectabl e, quadrivalent, preservative free Enrique Alba MD Work Phone: [facility] 12-02-2020 zoster vaccine recombinant Enrique Alba MD Work Phone: [facility] 02-02-2020 influenza, injectabl e, quadrivalent, preservative free Enrique Alba MD Work Phone: [facility] 02-01-2020 influenza, high dose seasonal, preservative-free Enrique Alba MD Work Phone: [facility] 01-30-2019 influenza, injectabl e, quadrivalent, preservative free Enrique Alba MD Work Phone: [facility] 01-21-2019 Influenza, injectabl e, Madin Francesca Canine Kidney, preservative free, quadrivalent Enrique Alba MD Work Phone: [facility] 01-22-2018 Influenza, injectabl e, Madin Francesca Canine Kidney, quadrivalent with preservative Enrique Alba MD Work Phone: [facility] 01-21-2018 influenza, injectabl e, quadrivalent, preservative free Enrique Alba MD Work Phone: [facility] 01-28-2017 influenza, injectabl e, quadrivalent, preservative free Enrique Alba MD Work Phone: [facility] 01-18-2017 influenza, seasonal, injectable, preservative free Enrique Alba MD Work Phone: [facility] 03-17-2016 influenza, injectabl e, quadrivalent, preservative free Enrique Alba MD Work Phone: [facility] 02-18-2015 influenza, seasonal, injectable, preservative free Enrique Alba MD Work Phone: [facility] 01-09-2015 influenza, injectabl e, quadrivalent, preservative free Enrique Alba MD Work Phone: [facility] 03-17-2013 influenza virus vacc ine, whole virus Enrique Alba MD Work Phone: [facility] Payers Date Payer Category Payer Unknown [employer] [id number] 2022-Present [phone] [address] [address] [place] [address] [id number] 2022 Unknown [id number] 2022 Private Health Insurance [id number] 2022 Unknown [id number] [id number] 2022 Self-pay 1970 Unknown [id number] 2.16.840.1.374778.3.579. 2.593 1970 Unknown [id number] 2.16.840.1.412998.3.579. 2.59 1970 Unknown [id number] 2.16.840.1.188273.3.579. 2. 1970 Unknown [id number] 2.16.840.1.861976.3.579. 2.59 1970 Unknown [id number] 2.16.840.1.573858.3.579. 2. 1970 Unknown [id number] 2.16.840.1.363946.3.579. 2.1258 1970 Unknown [id number] 2.16840.1.420587.3.579. 2.1258 1970 Unknown [id number] 2.840.1.047450.3.579. 2.1258 1970 Unknown [id number] 2.840.1.696046.3.579. 2.1258 1970 Unknown [id number] 2.16840.1.398346.3.579. 2.1258 1970 Unknown [id number] 2.16840.1.503149.3.579. 2.1258 1970 Unknown [id number] 2.16840.1.732596.3.579. 2.1258 1970 Unknown [id number] 2.16840.1.222796.3.579. 2.1258 1970 Unknown [id number] 2.16.840.1.269778.3.579. 2.1258 1970 Unknown [id number] 2.16.840.1.750828.3.579. 2.1258 1970 Unknown [id number] 2.16.840.1.274179.3.579. 2.125 1959 Unknown [id number] Unknown [id number] 2.16.840.1.340455.3.579. 2.531 Social History Date Type Detail Facility Unknown if ever smoked [facility] Start: 10-30-2022 End: 12-15-2023 Sex Assigned [...] Sex Assigned At Not on file [facility] Start: 10-30-2022 End: 12-15-2023 History of Social function [facility] Adult Depression Screening Assessment 2 [facility] Start: 12-16-2023 End: 09-01-2024 Alcoholic beverage intake Lifetime non-drinker (finding) [facility] [...] [OSQ] Very much [facility] (I/We) worried kevyn er (my/our) food would run out before (I/we) got money to buy more. Never true [facility] Start: 11-13-2022 Education 21 [facility] Start: 11-13-2022 Alcohol Comment Caffeine intak e: 2-3 cups per day [facility] Medical Equipment Procedure Code Equipment Code Equipment Origin al Text Equipment Identifier Dates Simplex P Bone Cement Radiopaque Full Dose Individual Pack - [id number] Start: 10-27-2012 Simplex P Bone Cement Radiopaque Full Dose Individual Pack - [id number] Start: 03-30-2013 Comp Fem 4 Lt Kn Cr Ivan Trthln - [id number] Start: 10-27-2012 Ins Tib 3 9mm Kn X3 Cr Trthln - [id number] Start: 03-30-2013 Comp Pat 10mm 32 mm Asym Trthln - [id number] Start: 10-27-2012 Comp Pat 10mm 32 mm Asym Trthln - [id number] Start: 03-30-2013 Baseplt Tib Trth ln 4 Prim - [id number] Start: 10-27-2012 Baseplt Tib Trth ln 3 Prim - [id number] Start: 03-30-2013 Clinical Notes 01-30-2022 to 09-01-2024 Enrique Alba MD - 09/01/2024 1:45 PM Tigist Alba MD - 08/02/2024 3:30 PM EDTTelephone Encounter - Luis Eduardo Levine NP - 06/16/2024 3:00 PM OSVALDO Argueta - 03/29/2024 11:00 AM EST Note Date & Type Note Facility 09-01-2024 History of Present illness Narrative Images from the original note were not included. Patient ID: Naima Rios is a 53 y.o. female who presents for: Palpitations Patient complains of palpitations and shortness of breath. The symptoms are mild, occur intermittent , and last 10-15 minutes per episode. Cardiac risk factors include: dyslipidemia, hypertension, obesity (BMI >= 30 kg/m2), and sedentary lifestyle. Aggravating factors: started at [employer] [facility] [employer] and intermittently she has it while she is at work . Alleviating factors: none. Associated symptoms: she calls it stopping breathing , she describes it as taking a huge breath every once in a while. Her description sounds like air hunger . She also notes that she has tract her heart rate in sometimes when she feels the palpitations it is beating at about 130 beats per minute. No specific complaints of chest pain or diaphoresis. She does have a history of getting an albuterol inhaler due to some bronchitis and wheezing. She even tried that when she was feeling short of breath it did not improve her breathing. GI review of systems is negative. Objective The patient is pleasant and in no acute distress. The neck is supple and trachea is midline. No masses are appreciated. The heart is regular rate and rhythm without S3, S4. No murmur. The patient has normal respiratory pattern. The breath sounds are symmetrical without evidence of rhonchi or rales. No wheezing. The skin is warm and dry. The lower extremities have trace edema. The patient has good eye contact and speech is clear. Appropriate affect. Visit Vitals Pulse 77 Ht 5' 3 Wt 275 lb SpO2 97% BMI 48.71 kg/m OB Status Postmenopausal Smoking Status Never BSA 2.36 m Allergies Allergen Reactions Duloxetine Hcl Other Reaction(s): severe drowsiness Metformin GI intolerance Current Outpatient Medications on File Prior to Visit Medication Sig Dispense Refill albuterol HFA (ProAir HFA) 90 mcg/act inhaler Inhale 2 puffs every 6 (six) hours if needed for wheezing 18 g 3 diclofenac sodium 3 % gel Apply 1 application topically every 6 (six) hours. fenofibrate (Triglide) 160 MG tablet Take 1 tablet (160 mg) by mouth Daily 90 tablet 1 Fezolinetant (Veozah) 45 MG tablet Take 45 mg by mouth Daily 30 tablet 1 gabapentin (Neurontin) 300 MG capsule Take 1 capsule (300 mg) by mouth at bedtime 90 capsule 1 melatonin 10 MG tablet Take 1 tablet by mouth at bedtime. rOPINIRole (Requip) 0.5 MG tablet One tablet at bedtime 90 tablet 1 [DISCONTINUED] Veozah 45 MG tablet Take 1 tablet by mouth Daily metFORMIN XR (Glucophage-XR) 750 MG 24 hr tablet Take 1 tablet (750 mg) by mouth in the morning and 1 tablet (750 mg) before bedtime. Do not crush, chew, or split.. (Patient not taking: Reported on 09/01/2024) 60 tablet 0 No current facility-administered medications on file prior to visit. 1. Palpitations (Primary) Newer problem that has been going on since No cause is established today. The 1st thing we will be to evaluate a rhythm based problem with Holter monitoring. I did discuss with the patient and she may ultimately need some stress testing and/or an echocardiogram. I have asked her to start taking an 81 mg enteric-coated aspirin daily until we arrive at a diagnosis and treatment plan, In case of the possibility of coronary artery disease. We also discussed signs and symptoms to present to the emergency room. - Holter monitor; Future - Holter monitor 2. Tachycardia As above - Holter monitor; Future - Holter monitor documented in this encounter [facility] 08-02-2024 History of Present illness Narrative Images from the original note were not included. Patient ID: Naima Rios is a 53 y.o. female who presents for: Hypertension Patient is here for follow-up of elevated blood pressure. She is not exercising and is adherent to a low-salt diet. Blood pressure is not checking bp at home. Cardiac symptoms: headaches . Patient denies chest pain, dyspnea, irregular heart beat, lower extremity edema, and palpitations. Cardiovascular risk factors: dyslipidemia, hypertension, obesity (BMI >= 30 kg/m2), and sedentary lifestyle. Use of agents associated with hypertension: none. History of target organ damage: none. Hyperlipidemia Pt who presents for follow-up of dyslipidemia. A repeat fasting lipid profile was not done. The patient does not use medications that may worsen dyslipidemias (corticosteroids, progestins, anabolic steroids, diuretics, beta-blockers, amiodarone, cyclosporine, olanzapine). Exercise: rarely. Insulin Resistance: Pt is on Metformin for her/his glucose intolerance and/or insulin resistance and has been for many years. She/He denies any side effects and will be in need of a refill today. Anxiety Patient is here for evaluation of anxiety. He/She has the following anxiety symptoms: difficulty concentrating, feelings of losing control, insomnia, irritable. Onset of symptoms was approximately several years ago. Symptoms have been stable since that time. He/She denies current suicidal and homicidal ideation. Family history significant for no psychiatric illness.Possible organic causes contributing are: none. Previous treatment includes medication none right now . He/She complains of the following medication side effects: none. Sleep Disorder: Onset of symptoms has been several years. How many hours of sleep is patient getting on average night: 5-6 How long does it take patient to get to sleep each night: 30 minutes Does he/she have trouble falling asleep: no Does he/she have trouble maintaining sleep: no Does patient have good sleep hygiene: yes Review of Systems Constitutional: Negative for activity change and fatigue. Respiratory: Negative for cough, shortness of breath and wheezing. Cardiovascular: Negative for chest pain, palpitations and leg swelling. Neurological: Negative for light-headedness and headaches. Objective Appearance: Well-groomed, in no acute distress Abnormal body movements: None Affect: Appropriate and appears to be full range Attention: Good Attitude: Cooperative Degree of awareness of surroundings: Grossly within normal limits Impulse control: Appears to be good Insight: Appears to be good Fund of knowledge; adequate Judgment: Appears to be adequate Perceptual disorders: No perceptual disorders noted Psychomotor activity: Within normal range Speech: Clear, normal variability and rate Thought content: Unremarkable Visit Vitals BP 136/80 Pulse 90 Ht 5' 3 Wt 275 lb SpO2 97% BMI 48.71 kg/m OB Status Postmenopausal Smoking Status Never BSA 2.36 m Allergies Allergen Reactions Duloxetine Hcl Other Reaction(s): severe drowsiness Metformin GI intolerance Current Outpatient Medications on File Prior to Visit Medication Sig Dispense Refill albuterol HFA (ProAir HFA) 90 mcg/act inhaler Inhale 2 puffs every 6 (six) hours if needed for wheezing 18 g 3 diclofenac sodium 3 % gel Apply 1 application topically every 6 (six) hours. Fezolinetant (Veozah) 45 MG tablet Take 45 mg by mouth Daily 30 tablet 1 melatonin 10 MG tablet Take 1 tablet by mouth at bedtime. [DISCONTINUED] fenofibrate (Triglide) 160 MG tablet Take 1 tablet (160 mg) by mouth Daily 90 tablet 1 [DISCONTINUED] rOPINIRole (Requip) 0.5 MG tablet One tablet at bedtime 90 tablet 1 metFORMIN XR (Glucophage-XR) 750 MG 24 hr tablet Take 1 tablet (750 mg) by mouth in the morning and 1 tablet (750 mg) before bedtime. Do not crush, chew, or split.. (Patient not taking: Reported on 08/02/2024) 60 tablet 0 No current facility-administered medications on file prior to visit. 1. Restless leg syndrome (Primary) Chronic problem that is worsening with symptoms. She is describing that is worsening in the evenings by the time she gets home. It then feels like she has to move around and she just can not get comfortable in it interferes with her ability to fall asleep. She does get it when she is stuck sitting for prolonged like the time such as in a vehicle. She also specifically notes when she has used gabapentin for her chronic pain it does tend to help. We discussed increasing the ropinirole or adding the gabapentin back in. Since she has a component of chronic pain I would consider the gabapentin since it has also helped with her sleep previously. In prescribing a renewal to their current medication, consideration of the following encompasses moderate decision making; the current prescriptions and supplements, the current allergies and medication intolerances, current medical conditions, and potential drug interactions. Any changes to risks, benefits, and reason for renewing their current medication due to the above were discussed. The patient was given a chance to ask questions today and all questions were answered. The patient is to contact us if any other questions arise or if any problems occur. (Utilizing the original 1994/1996 guidelines or the 2020 office/outpatient code guidelines for selecting the level of E/M service, In both sets of guidelines, prescription drug management appears in the moderate medical decision making (MDM) row. Neither the original guidelines nor the new guidelines state that a new prescription or change is needed in order to credit prescription drug management) - gabapentin (Neurontin) 300 MG capsule; Take 1 capsule (300 mg) by mouth at bedtime Dispense: 90 capsule; Refill: 1 - rOPINIRole (Requip) 0.5 MG tablet; One tablet at bedtime Dispense: 90 tablet; Refill: 1 - CBC and differential; Future - Iron and TIBC; Future - CBC and differential - Iron and TIBC 2. Other chronic pain As above 3. Insomnia due to other mental disorder As above 4. Recurrent major depressive disorder, in partial remission (HCC) (CMS/HCC) Chronic problem that is stable. She is off of her medications. She admits she is in struggling a little bit but her daughters ill and does not have a diagnosis yet and it is hard not to worry about her illness. Permission giving. I agree for right now we can sort of hold off on the medications and try and get her sleep better which may help. 5. Primary hypertension (CMS/HCC) Chronic problem, stable, to goal off of medications. 6. Mixed dyslipidemia (CMS/HCC) Renew prescription - fenofibrate (Triglide) 160 MG tablet; Take 1 tablet (160 mg) by mouth Daily Dispense: 90 tablet; Refill: 1 7. Pre-diabetes Encouraged avoidance of sugar and simple carbohydrates. Discussed and she could do some walking since she has had her surgery and everything is healing and/or bicycle and this would also potentially help her stress and depression anxiety. 8. Morbid obesity ([facility]) Lifestyle changes as note 9. Adult BMI 45.0-49.9 kg/sq m ([facility]) Defines a morbid obesity documented in this encounter [facility] 06-16-2024 Miscellaneous Notes Please notify patient that negative for acute fracture. Mild flattening of her arch. Does report small plantar enthesophyte which is a bony growth AKA heel spur. This is doubtful to be the cause of her pain. Follow up with PCP as she may need a Podiatry referral. Thanks. FINDINGS: There is slight narrowing of the 1st metatarsophalangeal articulation. Tarsometatarsal alignment is normal. There is mild flattening of the arch and slight midfoot arthrosis. There is a tiny plantar calcaneal enthesophyte. Slight hammertoe deformities are seen IMPRESSION: Mild flattening of the arch and slight midfoot arthrosis Small plantar calcaneal enthesophyte documented in this encounter [facility] 06-16-2024 Telephone encounter Note Please notify patient that negative for acute fracture. Mild flattening of her arch. Does report small plantar enthesophyte which is a bony growth AKA heel spur. This is doubtful to be the cause of her pain. Follow up with PCP as she may need a Podiatry referral. Thanks. FINDINGS: There is slight narrowing of the 1st metatarsophalangeal articulation. Tarsometatarsal alignment is normal. There is mild flattening of the arch and slight midfoot arthrosis. There is a tiny plantar calcaneal enthesophyte. Slight hammertoe deformities are seen IMPRESSION: Mild flattening of the arch and slight midfoot arthrosis Small plantar calcaneal enthesophyte [facility] 06-15-2024 History of Present illness Narrative HPI: Historian of HPI: patient and significant other Naima Rios is a 53 y.o. female who presents today to the Urgent Care with the following complaints and denials due left foot pain which has been off and on for a few months. Pt states I would put a brace on it and the pressure would feel better, but the last two days the pain has been horrible. I have a hard bump on the top of my foot. Even just touching my foot hurts. C/O Denies Symptom Comments [x] [] swelling [x] [] ecchymosis [x] [] erythema [] [x] tingling [] [x] numbness [x] [] Pain [] [x] Weakness [] [x] Decreased ROM [] [x] Trauma Additional Comments: pt has taken tylenol, motrin OTC medication without relief Pt denies heat application to the affected area Pt denies cold application to the affected area ROS: A complete system ROS was performed and negative aside from the pertinent positives noted in the HPI and PE. Visit Vitals BP 138/90 Pulse 88 Temp 97.2 F (Temporal) SpO2 98% OB Status Postmenopausal Smoking Status Never Physical Exam Vitals reviewed. Constitutional: General: She is not in acute distress. Appearance: Normal appearance. HENT: Head: Normocephalic and atraumatic. Nose: Nose normal. Mouth/Throat: Mouth: Mucous membranes are moist. Pharynx: Oropharynx is clear. Eyes: Extraocular Movements: Extraocular movements intact. Conjunctiva/sclera: Conjunctivae normal. Pupils: Pupils are equal, round, and reactive to light. Cardiovascular: Rate and Rhythm: Normal rate and regular rhythm. Pulses: Normal pulses. Heart sounds: Normal heart sounds. Pulmonary: Effort: Pulmonary effort is normal. No respiratory distress. Breath sounds: No wheezing, rhonchi or rales. Musculoskeletal: Left foot: Decreased range of motion. Normal capillary refill. Swelling and tenderness present. Normal pulse. Skin: General: Skin is warm and dry. Capillary Refill: Capillary refill takes less than 2 seconds. Findings: No rash. Neurological: General: No focal deficit present. Mental Status: She is alert and oriented to person, place, and time. Psychiatric: Mood and Affect: Mood normal. 1. Left foot pain (Primary) Presents today for evaluation of left foot pain. This has been ongoing for several months with no injury or known cause. She reports pain is located on top of foot and does not radiate. She does have a foot brace that usually helps, but over this past weekend the pain got worse . There is mild swelling. No open areas. Obtain x ray. She is aware we will call with results. - XR foot 3+ views left; Future - methylPREDNISolone (Medrol Dospak) 4 MG tablets; Follow schedule on package instructions Dispense: 21 tablet; Refill: 0 2. Strain of left foot, initial encounter Dx and tx discussed. RICE protocol. Complete full course of Medrol dose pack and follow up with PCP if no improvement in symptoms for further evaluation. FINDINGS: There is slight narrowing of the 1st metatarsophalangeal articulation. Tarsometatarsal alignment is normal. There is mild flattening of the arch and slight midfoot arthrosis. There is a tiny plantar calcaneal enthesophyte. Slight hammertoe deformities are seen IMPRESSION: Mild flattening of the arch and slight midfoot arthrosis Small plantar calcaneal enthesophyte See telephone encounter. documented in this encounter [facility] 04-17-2024 History of Present illness Narrative HPI: Historian of HPI: patient is present Naima Rios is a 53 y.o. female who presents today to the Urgent Care with the following complaints and denials due left knee pain which has been present for 1 month(s). Pt states that her left knee has been hurting for a couple of weeks. Pt states that her knee locked up the other day. Pt states that she had her left knee replaced back in 2012. Pt denies falling, hitting, or having any type of trauma to the knee. C/O Denies Symptom Comments [x] [] swelling [] [x] ecchymosis [] [x] erythema [] [x] tingling [] [x] numbness [x] [] Pain radiation Down left leg [x] [] Weakness [x] [] Decreased ROM Stairs [] [x] Trauma Additional Comments: pt has taken Tylenol OTC medication without relief Pt admits to cold application to the affected area Pt denies heat application to the affected area Visit Vitals BP 138/84 (BP Location: Left arm, Patient Position: Sitting, BP Cuff Size: Large adult) Pulse 100 Temp 97.6 F (Temporal) Wt 275 lb 12.8 oz SpO2 97% BMI 48.86 kg/m OB Status Postmenopausal Smoking Status Never BSA 2.36 m ROS: A complete system ROS was performed and negative aside from the pertinent positives noted in the HPI and PE. Physical Exam Constitutional: Appearance: Normal appearance. HENT: Head: Normocephalic. Eyes: Pupils: Pupils are equal, round, and reactive to light. Cardiovascular: Rate and Rhythm: Normal rate. Pulmonary: Effort: Pulmonary effort is normal. Musculoskeletal: Left knee: Effusion present. No erythema. Decreased range of motion. Tenderness present. Skin: General: Skin is warm and dry. Neurological: Mental Status: She is alert and oriented to person, place, and time. Psychiatric: Mood and Affect: Mood normal. Assessment/Plan 1. Acute pain of left knee (Primary) Reviewed prelim x-ray results with patient. Advised we will call with final read when available. Patient will start Medrol Dosepak as directed. Continue with ice to the area. May use compression as needed. Follow with PCP Friday. - XR knee 3 views left - methylPREDNISolone (Medrol Dospak) 4 MG tablets; Take as directed on package. Dispense: 21 tablet; Refill: 0 Follow up if symptoms worsen or fail to improve. Beatriz Rankin NP documented in this encounter [facility] 04-05-2024 History of Present illness Narrative Images from the original note were not included. Patient ID: Naima Rios is a 53 y.o. female who presents for: Upper Respiratory Infection Patient complains of symptoms of a URI. Symptoms include bilateral ear pressure/pain, nasal congestion, non productive cough, sore throat, vertigo, and wheezing. Onset of symptoms was 1 week ago, and has been gradually worsening since that time. Treatment to date: none. Covid test at home negative. Review of Systems Constitutional: Negative for chills and fever. Respiratory: Positive for cough and wheezing. Negative for shortness of breath. Cardiovascular: Negative for chest pain and palpitations. Gastrointestinal: Negative for abdominal pain. Genitourinary: Negative for frequency and urgency. Objective In general the patient is pleasant and in no acute distress. Bilateral ears, canals are within normal limits. Right TM is transparent and somewhat retracted. Left TM is transparent and somewhat retracted. No fluid layer. Bilateral nares demonstrate inflamed mucosa. Oropharynx has moist mucosa there is no specific evidence of thrush. There is mild erythema of the pharynx. Shoddy bilateral anterior cervical adenopathy. No signs of respiratory distress. Patient is speaking full sentences. There are symmetrical breath sounds. No rhonchi or rales are appreciated. No wheezes. Skin is warm and dry Visit Vitals Pulse 93 Ht 5' 3 Wt 205 lb SpO2 95% BMI 36.31 kg/m OB Status Postmenopausal Smoking Status Never BSA 2.03 m Allergies Allergen Reactions Duloxetine Hcl Other Reaction(s): severe drowsiness Metformin GI intolerance Current Outpatient Medications on File Prior to Visit Medication Sig Dispense Refill albuterol HFA (ProAir HFA) 90 mcg/act inhaler Inhale 2 puffs every 6 (six) hours if needed for wheezing 18 g 3 diclofenac sodium 3 % gel Apply 1 application topically every 6 (six) hours. fenofibrate (Triglide) 160 MG tablet Take 1 tablet (160 mg) by mouth Daily 90 tablet 1 melatonin 10 MG tablet Take 1 tablet by mouth at bedtime. metFORMIN XR (Glucophage-XR) 500 MG 24 hr tablet Take 1 tablet (500 mg) by mouth in the morning and 1 tablet (500 mg) in the evening. Take with meals. Do not crush, chew, or split.. 60 tablet 0 rOPINIRole (Requip) 0.5 MG tablet One tablet at bedtime 90 tablet 1 [DISCONTINUED] fluconazole (Diflucan) 150 MG tablet Take 1 tablet (150 mg) by mouth 1 (one) time for 1 dose 1 tablet 0 [DISCONTINUED] metFORMIN XR (Glucophage-XR) 500 MG 24 hr tablet Take 1 tablet (500 mg) by mouth in the evening. Take with meals Do not crush, chew, or split. 30 tablet 0 No current facility-administered medications on file prior to visit. 1. Acute non-recurrent pansinusitis (Primary) Acute problem that has been going on for several weeks. We did discuss the health advisory the mycoplasma is significantly in the area. We have mutually agreed to empirically treat with levofloxacin. In prescribing a new medication consideration of [...] with the adjustment in their medication. - levoFLOXacin (Levaquin) 750 MG tablet; Take 1 tablet (750 mg) by mouth Daily for 7 days Dispense: 7 tablet; Refill: 0 documented in this encounter [facility] 03-29-2024 History of Present illness Narrative Reason [...] glucose tolerance) 09/17/2022 Hepatitis 09/17/2022 HTN (hypertension) (CMS/HCC) 09/17/2022 Insomnia due to other mental disorder 09/17/2022 Mixed dyslipidemia (CMS/HCC) 09/17/2022 Morbid obesity ([facility]) 09/17/2022 Obstructive sleep apnea hypopnea, moderate 09/17/2022 Osteoarthritis of joint of toe of right foot 09/17/2022 Other chronic pain 09/17/2022 Overactive bladder 09/17/2022 Primary osteoarthritis, right hand 09/17/2022 Recurrent major depressive disorder, in partial remission (HCC) ([facility]) 09/17/2022 Sleep disorder 09/17/2022 Status post bilateral knee replacements 09/17/2022 Enuresis 09/17/2022 Urinary incontinence 09/17/2022 Adult BMI 45.0-49.9 kg/sq m ([facility]) 05/14/2023 Restless leg syndrome 08/14/2023 Pre-diabetes 03/20/2024 Resolved Ambulatory Problems Diagnosis Date Noted Gynecological disease 09/17/2022 Pain in female genitalia on intercourse 09/17/2022 Piriformis syndrome of left side 09/17/2022 Past Medical History: Diagnosis Date Anxiety Arthritis Back problem Bladder infection Chest wall abscess COVID-19 11/2019 Depression ([facility]) Kidney stones Knee problem Migraine headache ([facility]) Moderate single current episode of major depressive disorder (HCC) ([facility]) Obesity PMB (postmenopausal bleeding) Post-acute sequelae of COVID-19 ([facility]) Sprain of left ankle Swelling Varicella Vision impairment HISTORY PAST MEDICAL HISTORY SOCIAL HISTORY Past Medical History: Diagnosis Date Anxiety Arthritis Back problem Bladder infection Chest wall abscess COVID-19 11/2019 Depression ([facility]) ESS (euthyroid sick syndrome) HTN (hypertension) ([facility]) Kidney stones Knee problem Migraine headache ([facility]) Moderate single current episode of major depressive disorder (HCC) ([facility]) Obesity Piriformis syndrome of left side 09/17/2022 [...] JOINT REPLACEMENT OTHER SURGICAL HISTORY bilateral arthroscopy AL LAP,CHOLECYSTECTOMY 2016 TOTAL KNEE ARTHROPLASTY Bilateral 2014 [...] nursing note reviewed. Exam conducted with a kosher dietary service manager present. Vitals: Estimated body mass index is 36.34 kg/m as calculated from the following: Height as of 03/11/24: 5' 3 . Weight as of this [...] of: OSVALDO Wilks documented in this encounter [facility] 03-11-2024 History of Present illness Narrative Images [...] mg was sent. documented in this encounter [facility] 02-25-2024 History of Present illness Narrative Images from the original note were not included. Patient ID: Naima Rios is a 53 y.o. female who presents for: See Scanned Wellness packet Advance Directive/Living Will: No Health Care Power of Risk And Insurance Manager: No Review of Systems Constitutional: Positive for [...] through a living will, durable power of state attorney for healthcare, or other advanced directives. We discussed telling [facility] people about their advance and a copy will be kept in the EHR. I discussed that they should also make me an emergency contact in their cell phone, and/or notify their POA that I have a copy of the advanced directives. 3. Morbid obesity (CMS/HCC) We discussed some options medication assistance for [...] with tomosynthesis; Future documented in this encounter [facility] 12-25-2023 Telephone encounter Note Rx sent [facility] 12-25-2023 Miscellaneous Notes Rx sent documented in this encounter [facility] 12-16-2023 History of Present illness Narrative Images from the original note were not included. Patient ID: Naima Rios is a 53 y.o. female who presents for: Anxiety Patient is here for evaluation of anxiety. He/She has the following anxiety symptoms: difficulty concentrating, feelings of losing control, insomnia, irritable. Onset of symptoms was approximately several years ago. Symptoms have been unchanged since that time. He/She denies current suicidal and homicidal ideation. Family history significant for no psychiatric illness.Possible organic causes contributing are: none. Previous treatment includes medication Effexor. He/She complains of the following medication side effects: drowsiness. Review of Systems Constitutional: Negative for appetite change and fatigue. Psychiatric/Behavioral: Positive for sleep disturbance. Negative for agitation, behavioral problems and suicidal ideas. The patient is nervous/anxious. Objective Appearance: Well-groomed, in no acute distress Abnormal body movements: None Affect: Appropriate and appears to be full range Attention: Good Attitude: Cooperative Degree of awareness of surroundings: Grossly within normal limits Impulse control: Appears to be good Insight: Appears to be good Fund of knowledge; adequate Judgment: Appears to be adequate Perceptual disorders: No perceptual disorders noted Psychomotor activity: Within normal range Speech: Clear, normal variability and rate Thought content: Unremarkable Visit Vitals Ht 5' 3 Wt 260 lb BMI 46.06 kg/m OB Status Postmenopausal Smoking Status Never BSA 2.29 m Allergies Allergen Reactions Duloxetine Hcl Other Reaction(s): severe drowsiness Current Outpatient Medications on File Prior to Visit Medication Sig Dispense Refill albuterol HFA (ProAir HFA) 90 mcg/act inhaler Inhale 2 puffs every 6 (six) hours if needed for wheezing 18 g 3 diclofenac sodium 3 % gel Apply 1 application topically every 6 (six) hours. fenofibrate (Tricor) 145 MG tablet Take 1 tablet (145 mg) by mouth in the morning. 90 tablet 1 gabapentin (Neurontin) 100 MG capsule 2 capsules three times daily as needed for pain 180 capsule 1 gabapentin (Neurontin) 300 MG capsule Take 1 capsule (300 mg) by mouth at bedtime 90 capsule 1 melatonin 10 MG tablet Take 1 tablet by mouth at bedtime. rOPINIRole (Requip) 0.5 MG tablet One tablet at bedtime 90 tablet 1 venlafaxine XR (Effexor XR) 37.5 MG 24 hr capsule Take 37.5 mg by mouth Daily Do not crush or chew. meloxicam (Mobic) 15 MG tablet Take 15 mg by mouth in the morning. venlafaxine XR (Effexor XR) 150 MG 24 hr tablet Take 1 tablet (150 mg) by mouth in the morning. Take with meals. Do not crush, chew, or split.. (Patient not taking: Reported on 12/16/2023) 30 tablet 0 [DISCONTINUED] metFORMIN (Glucophage) 1000 MG tablet Take 1 tablet (1,000 mg) by mouth in the morning and 1 tablet (1,000 mg) in the evening. Take with meals. 180 tablet 1 [DISCONTINUED] metFORMIN (Glucophage) 500 MG tablet Take 1 tablet (500 mg) by mouth in the morning and 1 tablet (500 mg) in the evening. Take before meals. 60 tablet 0 [DISCONTINUED] metFORMIN (Glucophage) 850 MG tablet Take 1 tablet (850 mg) by mouth in the morning and 1 tablet (850 mg) in the evening. Take before meals. 60 tablet 0 [DISCONTINUED] venlafaxine XR (Effexor XR) 37.5 MG 24 hr capsule Titrate from 1 tablet in the morning daily for 2 weeks, to 2 tablets daily in the morning for 2 more weeks. Do not crush or chew. 45 capsule 0 No current facility-administered medications on file prior to visit. 1. Insomnia due to other mental disorder Chronic problem that is stable. The gabapentin overall helps. The ropinirole over helps with the restless legs which then improves her sleep. 2. Recurrent major depressive disorder, in partial remission (HCC) (CMS/HCC) Chronic problem, stable, overall doing well. In prescribing a renewal to their current medication, consideration of the following encompasses moderate decision making; the current prescriptions and supplements, the current allergies and medication intolerances, current medical conditions, and potential drug interactions. Any changes to risks, benefits, and reason for renewing their current medication due to the above were discussed. The patient was given a chance to ask questions today and all questions were answered. The patient is to contact us if any other questions arise or if any problems occur. (Utilizing the original guidelines or the 2020 office/outpatient code guidelines for selecting the level of E/M service, In both sets of guidelines, prescription drug management appears in the moderate medical decision making (MDM) row. Neither the original guidelines nor the new guidelines state that a new prescription or change is needed in order to credit prescription drug management) - venlafaxine XR (Effexor XR) 37.5 MG 24 hr capsule; Take 1 capsule (37.5 mg) by mouth Daily Do not crush or chew. Dispense: 30 capsule; Refill: 0 3. Morbid obesity (CMS/HCC) 4. Adult BMI 45.0-49.9 kg/sq m (CMS/HCC) documented in this encounter [facility] 12-05-2022 Note HNO ID: [id number] Author: Taylor Gee RD Service: ? Author Type: Registered Dietitian Type: Progress Notes Filed: 12/05/2022 2:43 PM Note Text: [facility] Nutrition Therapy: Virtual Consult - Initial Assessment I have communicated my name and active licensure. The patient?s identity and physical location were verified at the time of this visit. Either the patient or their legal help desk representative has been informed of the risks [...] Slimfast High Protein, Atkins, Fairlife Core Power, 1DayMakeover Nutrition Plan 6. Choose lean protein sources [...] cheese or fruit or none Lunch - [id number] w/ chicken/ham, makenzie, onion, pepper FF ranch or meat loaf + applesauce Snack - work-sugar free pudding or fruit; home-chips w/ cheese or popcorn Dinner - meat loaf/hamburger/chicken/steak/magali mp + veg +/- sweet potato/SF baked beans [...] affecting learning: None Referred by: Anibal Rios MNMelisa Billing Type: Initial Assess/15 min 2 units SIGNATURE: Taylor Gee RD PATIENT NAME: Naima Rios DATE: 12/05/2022 TIME: 2:05 PM PAGER: [phone] [facility] 12-05-2022 History of Present illness Narrative [facility] Nutrition Therapy: Virtual Consult - Initial Assessment I have communicated my name and active licensure. The patient s identity and physical location were verified at the time of this visit. Either the patient or their legal help desk representative has been informed of the risks [...] Slimfast High Protein, Atkins, Fairlife Core Power, 1DayMakeover Nutrition Plan 6. Choose lean protein sources [...] cheese or fruit or none Lunch - [id number] w/ chicken/ham, makenzie, onion, pepper FF ranch or meat loaf + applesauce Snack - work-sugar free pudding or fruit; home-chips w/ cheese or popcorn Dinner - meat loaf/hamburger/chicken/steak/magali mp + veg +/- sweet potato/SF baked beans [...] Rios DATE: 12/05/2022 TIME: 2:05 PM PAGER: [phone] documented in this encounter [facility] 10-30-2022 Note HNO ID: [id number] Author: Radha Rios MD Service: ? Author Type: Physician Type: Progress Notes Filed: 10/30/2022 2:34 PM Note Text: Hepatology Clinic Mindy Richey MD, FACG, FAASLD Director, [facility] Hepatology [facility] Consult Requested By: Mkie Saeed [id number] [facility] [id number] for evaluation of her fatty liver .. 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 Please feel free to contact me if I can be of further assistance to you {I spent 45 minutes in the visit, with more than 50% of the total [id number] time of the visit in counseling / coordination of care. [facility] 10-30-2022 History of Present illness Narrative Images from the original note were not included. Hepatology Clinic Mindy Richey MD, FACG, FAASLD Director, [facility] Hepatology [facility] Consult Requested By: Mike Saeed [id number] [facility] [id number] for evaluation of her fatty liver .. 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 Please feel free to contact me if I can be of further assistance to you {I spent 45 minutes in the visit, with more than 50% of the total [id number] time of the visit in counseling / coordination of care. documented in this encounter [facility] 08-01-2022 Note HNO ID: [id number] Author: Mariajose Asher MD Service: ? Author Type: Physician Type: Progress Notes Filed: 08/01/2022 3:52 PM Note Text: Rheumatology Outpatient Clinic Date of Service: 08/01/2022 Patient: Naima Rios Medical Record: [id number] Primary Care Physician: Zeferino Flores Last Rheumatology visit: [facility] at [facility] [...] Frequency: Continuous Continuous Intervention/Comfort measure: Medication;Massage;Therapeutic techniques-CPRP Medication;Relaxation;Heat;Exerci se;Massage Comments: Fingers, toes, left hip, shoulders -- PROMIS Assessments PROMIS Assessments 07/29/2022 Physical Health Percentile 15 % Pain Score 2 Pain Interference Percentile 5 % Fatigue Percentile 46 % Physical Function Percentile 21 % 3 [place] Activities of Daily Living 07/29/2022 [...] , low transverse COLONOSCOP W/ OR W/O [facility] SPEC Colonoscopy EGD EXTRACTION, ERUPTED TOOTH OR [...] as needed. meloxicam (more content not included)... [facility] 08-01-2022 History of Present illness Narrative Images from the original note were not included. Rheumatology Outpatient Clinic Date of Service: 08/01/2022 Patient: Naima Rios Medical Record: [id number] Primary Care Physician: Zeferino Flores Last Rheumatology visit: None at Barney [...] Frequency: Continuous Continuous Intervention/Comfort measure: Medication;Massage;Therapeutic techniques-CPRP Medication;Relaxation;Heat;Exerci se;Massage Comments: Fingers, toes, left hip, shoulders -- [...] , low transverse COLONOSCOP W/ OR W/O [facility] SPEC Colonoscopy EGD EXTRACTION, ERUPTED TOOTH OR [...] There is narrowing of all interphalangeal joints. Automatic Mold Sander: MARJ Transcribe Date/Time: Oct 10 2019 10:51A... Last MRI Hand - Impression Only No resulted procedures found. Last XR Chest - Impression Only No resulted procedures found. Last XR Cervical Spine - Impression Only No resulted procedures found. Health Maintenance Current Immunizations Never Reviewed Name Date COVID-19 vaccine, bivalent (P[employer]ER[employer]ION[employer]ek [employer]ore) 01/15/2022 COVID-19 vaccine, monovalent (PFIZER-BIONTECH) 07/27/2021 , 03/08/2021 , 08/04/2020 Physical Exam [...] which included preparing to see the patient, urbo-ej-ixss patient care, completing clinical documentation, obtaining and/or [...] Apr, Elevated liver enzymes (ICD-10 - R74.8) Whistle Other 10-05-2022 Evaluation note* Encounter Date Diagnosis [...] start vitamin e and milk thistle OTC Whistle Other Evaluation noteNo InformationNort [employer] Other Evaluation note* Diagnosis Erosive osteoarthritis of both hands- Primary Primary osteoarthritis involving multiple joints NSAID long-term use Encounter for long-term (current) use of non-steroidal anti-inflammatories documented in this [facility] Diagnosis Fatty liver- Primary Other chronic nonalcoholic liver disease Class 3 severe obesity due to excess calories in adult, unspecified BMI, unspecified whether serious comorbidity present (HCC) [facility] Diagnosis Fatty liver Other chronic nonalcoholic liver disease [facility] Encounter for wellness examination in adult- Primary Advance directive discussed with patient Morbid obesity ([facility]/HCC) Morbid obesity Adult BMI 45.0-49.9 kg/sq m ([facility]/HCC) Glucose intolerance (impaired glucose tolerance) Impaired glucose tolerance test Mixed hyperlipidemia ([facility]/HCC) Mixed hyperlipidemia Primary hypertension ([facility]/HCC) Unspecified essential hypertension Menopausal and female climacteric states Osteoporosis screening Special screening for osteoporosis Encounter for follow-up examination after completed treatment for conditions other than malignant neoplasm Screening mammogram for breast cancer documented in this encounter [facility]* Diagnosis Mixed dyslipidemia ([facility]/HCC) [facility] Diagnosis Pre-diabetes- Primary Other abnormal glucose Restless leg syndrome Restless legs syndrome (RLS) Mixed dyslipidemia ([facility]/HCC) documented in this encounter [facility]* Diagnosis Well woman exam with routine gynecological exam Routine gynecological examination Yeast infection of the skin Candidiasis of skin and nails documented in this encounter [facility]* Diagnosis Pre-diabetes Other abnormal glucose documented in this encounter [facility]* Diagnosis Acute non-recurrent pansinusitis- Primary documented in this encounter [facility]* Diagnosis Insomnia due to other mental disorder Recurrent major depressive disorder, in partial remission (HCC) ([facility]) Morbid obesity ([facility]) Morbid obesity Adult BMI 45.0-49.9 kg/sq m ([facility]) documented in this encounter [facility]* Diagnosis Recurrent major depressive disorder, in partial remission (HCC) ([facility])- Primary [facility] Diagnosis Acute pain of left knee- Primary [facility] Diagnosis Pre-diabetes Other abnormal glucose [facility] Diagnosis Left foot pain- Primary Pain in soft tissues of limb Strain of left foot, initial encounter Left foot pain Pain in soft tissues of limb [facility] Diagnosis Restless leg syndrome- Primary Restless legs syndrome (RLS) Other chronic pain Insomnia due to other mental disorder Recurrent major depressive disorder, in partial remission (HCC) ([facility]) Primary hypertension ([facility]/HCC) Unspecified essential hypertension Mixed dyslipidemia ([facility]/HCC) Pre-diabetes Other abnormal glucose Morbid obesity (CMS/HCC) Morbid obesity Adult BMI 45.0-49.9 kg/sq m (CMS/HCC) [facility] Diagnosis Palpitations- Primary Tachycardia Unspecified tachycardia [facility] - Reported* Type Description Date Medical History Unspecified essential hypertensi on Medical History Hypercholesterolemia Medical History Depression with anxiety Surgical History C/Section 2006 Surgical History Bilateral knee replacement 2012 Surgical History cholecystectomy Surgical History wisdom teeth Surgical History cyst removal Hospitalization History See past surgical hx Whistle Other Reason for visit NarrativePT HERE REQ OF DR. ALBA FOR ELEVATED LIVER ENZYMES, (referral note received)Whistle Other Summary Purpose Family History No Family [...] THERAPY MEDICAL NUTRITION ASSMT&IVNTJ INDIV EACH 15 [place] MEDICAL NUTRITION ASSMT&IVNTJ INDIV EACH 15 [place] MED[place] N[place] ASS[place]&IVNTJ INDIV EACH 15 [place] ASS[place]&IVNTJ INDIV EACH 15 [place] Radha Abdul MD [address] [place] [address] Referral ID Status Reason Start Date Expiration Date Visits Requested Visits Authorized [id number] Authorized PCP Requested Referral 10/30/2022 01/28/2023 1 1 Additional Source Comments INFORMATION SOURCE (unrecogn ized section and content) DATE CREATED AUTHOR 12/24/2019 [facility] DATE CREATED AUTHOR AUTHOR'S ORGANIZ ATION [facility] DATE CREATED AUTHOR AUTHOR'S ORGANIZ ATION 03/07/2022 [facility] DATE CREATED AUTHOR AUTHOR'S ORGANIZ ATION 12/06/2022 [facility] DATE CREATED AUTHOR AUTHOR'S ORGANIZ ATION 09/04/2024 [facility] EPIC REASON FOR VISIT (unrecogniz ed section and content) Reason Comments New Patient Arthritis in hands Joint Pain Reason Comments New Patient Consult for fatty li kathy Specialty Diagnoses / Procedures Referred By Contact Referred To Contact Gastroenterology / GASTROENTEROLOGY Diagnoses Encounter for follow-up examination after completed treatment for conditions other than malignant neoplasm Fatty liver Procedures OFFICE/OUTPATIENT ESTABLISHED MOD [facility] 30-39 MIN NEW DDI PATIENT Mike SaeedDO [address] [place] [address] Radha Abdul MD [address] [place] [id number] Referral ID Status Reason Start Date Expiration Date Visits Re quested Visits Authorized [id number] Denied 10/30/2022 04/27/2023 1 0 Reason Comments Patient Education Assessment Specialty Diagnoses / Procedures Referred By Contac t Referred To Contact Nutrition Diagnoses Fatty liver Procedures CONSULT TO NUTRITION THERAPY MEDICAL NUTRITION ASSMT&IVNTJ INDIV EACH 15 [place] MEDICAL NUTRITION ASSMT&IVNTJ INDIV EACH 15 [place] MEDICAL NUTRITION ASSMT&IVNTJ INDIV EACH 15 [place] MEDICAL NUTRITION ASSMT&IVNTJ INDIV EACH 15 [place] Radha Abdul MD [address] [place] [address] Referral ID Status Reason Start Date Expiration Date V isits Requested Visits Authorized [id number] Closed PCP Requested Referral 10/30/2022 01/28/2023 1 1 Reason Comments Annual Exam Reason Comments Med Change Request Reason Comments Results Reason Comments Well Women Visit Reason Comments URI Reason Comments Anxiety Reason Comments Med Refill Reason Comments Hypertension Hyperlipidemia Anxiety Sleeping Problem Reason Comments Palpitations Source Comments (unrecognize d section and content) [...] Care Teams (unrecognized sec tion and content) Washer Hand Relationship Specialty Start Date End Date Zeferino Flores PCP - General Internal Medicine 08/26/12 Washer Hand Relationship Specialty Start Date End Date Zeferino Flores PCP - General Internal Medicine 08/26/12 Washer Hand Relationship Specialty Start Date End Date Zeferino Flores PCP - General Internal Medicine 08/26/[address] [facility] [address] [place] [address] Registered Dietitian Nutrition 12/05/22 Washer Hand Relationship Specialty Start Date End Date Enrique Alba MD (Fax) PCP - General Family Medicine 09/16/22 Washer Hand Relationship Specialty Start Date End Date Enrique Alba MD (Fax) PCP - General Family Medicine 09/16/22 Washer Hand Relationship Specialty Start Date End Date Enrique Alba MD (Fax) PCP - General Family Medicine 09/16/22 Washer Hand Relationship Specialty Start Date End Date Enrique Alba MD (Fax) PCP - General Family Medicine 09/16/22 Washer Hand Relationship Specialty Start Date End Date Enrique Alba MD (Fax) PCP - General Family Medicine 09/16/22 Washer Hand Relationship Specialty Start Date End Date Enrique Alba MD (Fax) PCP - General Family Medicine 09/16/22 Washer Hand Relationship Specialty Start Date End Date Enrique Alba MD (Fax) PCP - General Family Medicine 09/16/22 Washer Hand Relationship Specialty Start Date End Date Enrique Alba MD (Fax) PCP - General Family Medicine 09/16/22 Washer Hand Relationship Specialty Start Date End Date Enrique Alba MD [address] [place] [address] PCP - General Family Medicine 09/16/22 Washer Hand Relationship Specialty Start Date End Date Enrique Alba MD [address] [place] [address] PCP - General Family Medicine 09/16/22 Washer Hand Relationship Specialty Start Date End Date Enrique Alba MD (Fax) PCP - General Family Medicine 09/16/22 Washer Hand Relationship Specialty Start Date End Date Enrique Alba MD (Fax) PCP - General Family Medicine 09/16/22 Washer Hand Relationship Specialty Start Date End Date Enrique Alba MD (Fax) PCP - General Family Medicine 09/16/22 Washer Hand Relationship Specialty Start Date End Date Enrique Alba MD (Fax) PCP - General Family [facility] 09/16/22 Washer Hand Relationship Specialty Start Date End Date Enrique Alba MD (Fax) PCP - [facility] Family Medicine 09/16/22 FOR RECORDS PERTAINING TO PATIENTS WHO [...] BE BASED ON THE PRIMARY CLINICAL RECORDS. [facility]. provides no warranty or guarantee of the accuracy or completeness of information in this document.
[2024-10-27 07:48] LABS: Hematocrit 43.9 % (36.0-48.0); Hemoglobin 14.8 g/dL (12.0-16.0); Immature Granulocytes Abs Auto 0.02 10^3/uL (0.00-0.03); Immature Granulocytes Pct Auto 0.4 % (0.0-0.5); Lymphocytes Absolute Auto 1.4 10^3/uL (1.2-3.8); Mean Corpuscular HGB Conc 33.7 g/dL (29.9-35.2); Mean Corpuscular Hemoglobin 28.1 pg (26.7-34.0); Mean Corpuscular Volume 83.3 fL (81.0-99.0); Platelet Count 199 10^3/uL (150-450); Red Blood Count 5.27 10^6/uL (4.20-5.40); White Blood Count 5.1 10^3/uL (4.0-11.0)
[2024-10-27 08:34] LABS: Iron 65.0 ug/dL (50.0-170.0); Percent Iron Saturation 21.7 %; Total Iron Binding Capacity 299.0 ug/dL (250.0-450.0)
== END 2024-10-27 07:09 | disposition home or self-care (01) ==
LOC: LAB 07:10
PROVIDERS: PCP Family Medicine; Visit Provider Family Medicine
DX: G25.81 Restless legs syndrome (principal)
CPT/HCPCS: 36415; 83540; 83550; 85025

== ENCOUNTER 2024-10-30 08:06 | Outpatient (OUT) | payer OTHER, SELFPAY ==
--- OUTSIDE RECORDS SUMMARY | 2024-10-30 08:11 | XMS_ITS | Encounter Summary ---
Author Organization [facility] Address [address] [place] [address] Care Team Providers Care Route Contractor Name Role Phone Enrique Burgos MD Primary Care Provider Encounter Details Date Type Department Care Team (Late st Contact Info) Description 03/02/2024 Orders Only [facility] [address] [place] [address] RachelJuly, Menopausal and female climacteric states; Osteoporosis [...] How often do you attend chur or voodoo services? More than 4 times per year 12/15/2023 Do you belong to any clubs o r organizations such as episcopal groups, unions, fraternal or athletic groups, or [...] Recorded Patient Health Questionnaire-2 Score 0 11/14/2022 [facility] Health - Occupational Stress Questionnaire Answer Date [...] place to sleep or slept in a senior care (including now)? No 09/18/2022 Housing Stability Vital Sign Answer Jules e Recorded In the last 12 months, was t here a time when you were not able to pay the mortgage or rent on time? No 12/15/2023 In the past 12 months, how m any times have you moved where you were living? 0 12/15/2023 At any time in the past 12 m [facility], were you homeless or living in a senior care (including now)? 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 file Not on file Not on file documented as of this encounter Plan of Treatment Upcoming Encounters Date Type Department Care Team (Late st Contact Info) Description 04/04/2025 3:00 PM EST Office Visit [facility] [address] [place] [address] Janey Savage PA [address] [place] [address] documented as of this encounter Visit Diagnoses Diagnosis Menopausal and female climacteric states Osteoporosis screening Special screening for osteoporosis Encounter for follow-up examination after completed treatment for conditions other than malignant neoplasm Screening mammogram for breast cancer documented in this encounter Care Teams Route Contractor Relationship Specialty Start Date End Date Enrique Burgos MD (Fax) PCP - General Family Medicine 09/16/22 documented as of this encounter
--- OUTSIDE RECORDS SUMMARY | 2024-10-30 08:11 | XMS_ITS | Encounter Summary ---
Author Organization [facility] Address [address] [place] [address] Care Team Providers Care Protocol Manager Name Role Phone Enrique Burgos MD Primary Care Provider [phone] Reason for Visit * Reason Comments Med Refill Encounter Details Date Type Department Care Team (Late st Contact Info) Description 01/05/2023 Refill [facility] [address] [place] [address] Enrique Burgos MD [address] [place] [address] [address] [place] [address] Glucose intolerance (impaired glucose tolerance) Social History [...] any clubs o r organizations such as shinto groups, unions, fraternal or athletic groups, or [...] Recorded Patient Health Questionnaire-2 Score 0 11/14/2022 [facility] ional Health - Occupational [...] place to sleep or slept in a intermediate (including now)? 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 on file Not on file Not on file documented as of this encounter Plan of Treatment Upcoming Encounters Date Type Department Care Team (Late st Contact Info) Description 04/04/2025 3:00 PM EST Office Visit [facility] [address] [facility] [facility] [address] Janey Savage PA [address] [facility] [place] [address] documented as of this encounter Visit Diagnoses Diagnosis Glucose intolerance (impaired glucose tolerance) Impaired glucose tolerance test documented in this encounter Care Teams Protocol Manager Relationship Specialty Start Date End Date Enrique Burgos MD PCP - General Family Medicine 09/16/22 documented as of this encounter
--- OUTSIDE RECORDS SUMMARY | 2024-10-30 08:11 | XMS_ITS | Clinical Summary ---
Author Organization [facility] Address [address] [place] [address] Care Team Providers Care Medical Research Assistant Name Role Phone Enrique Alba MD Primary Care Provider Allergies Active Allergy [...] Encounters Date Type Department Care Team Description 10/27/2024 Telephone [facility] [address] [place] [address] Enrique Alba MD Care Coordination 10/27/2024 Orders Only [facility] [address] [place] [address] Enrique Alba MD 10/27/2024 Clinisync Result Encounter NOMS External Department Unsolicited Enrique Alba MD 09/01/2024 1:45 PM EDT Office Visit [facility] [address] [place] [address] Enrique Alba MD Palpitations (Primary Dx); Tachycardia 09/01/2024 Bamboo flowsheet [facility] [address] [place] [address] Enrique Alba MD 09/01/2024 Travel 08/31/2024 Travel 08/16/2024 Orders Only [facility] [address] [place] [address] Imelda Ramos, MA Screening mammogram for breast cancer; Menopausal and female climacteric states; Osteoporosis screening; Encounter for follow-up examination after completed treatment for conditions other than malignant neoplasm 08/02/2024 3:30 PM EDT Office Visit [facility] [address] [place] [address] Enrique Alba MD Restless leg syndrome (Primary Dx); Other chronic pain; Insomnia due to other mental disorder; Recurrent major depressive disorder, in partial remission ; Primary hypertension ; Mixed dyslipidemia ; Pre-diabetes; Morbid obesity ([facility]); Adult BMI 45.0-49.9 kg/sq m ([facility]) 08/02/2024 Bamboo flowsheet [facility] [address] [place] [address] Enrique Alba MD 08/02/2024 Travel from Last 3 Months Immunizations Immunization Administration [...] often do you attend chur ch or restorationism services? More than 4 times per year 12/15/2023 Do you belong to any clubs o r organizations such as sikhism groups, unions, fraternal or athletic groups, or [...] Recorded Patient Health Questionnaire-2 Score 0 08/02/2024 [facility] - [...] medical appointments or from getting medications? No 08/1 12/2023 In the past 12 months, has l [...] place to sleep or slept in a long-term (including now)? No 09/18/2022 Housing Stability Vital Sign Answer Jules e Recorded In the last 12 months, was t here a time when you were not able to pay the mortgage or rent on time? No 12/15/2023 In the past 12 months, how m any times have you moved where you were living? 0 12/15/2023 At any time in the past 12 m [facility], were you homeless or living in a long-term (including now)? 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 on file Not on file Not [...] EST Office Visit [facility] [address] [place] [address] Janey Savage PA [address] [facility] [address] [place], [place] [id number] Health Maintenance Due Date Last Done Comments CT Colonography 1970 Colonoscopy 1970 FIT 1970 FOBT 1970 Sigmoidoscopy 1970 HPV/Cotest 03/18/2024 03/18/2019 Influenza Vaccine (#1) 2024 , 01/20/2023, 01/15/2022, Additional history exists Mammogram 03/05/2025 03/05/2024, 10/26, 07/12/2020, Additional history exists Colorectal Cancer Screening 09/18/2026 FIT-DNA 09/18/2026 09/19/2023 Cervical Cancer Screening 03/29/2027 Pap Smear 03/29/2027 03/29/2024, 11/01/2022 Procedures Procedure Name Priority Date/Time Associated Diagnosis Comments HOLTER MONITOR Routine 10/27/2024 10:53 AM EDT Palpitations Tachycardia METRO IRON AND TIBC Routine 10/27/2024 7 :21 AM EDT ALL CBC WITH AUTO DIFF Routine 7:21 AM EDT PAP SMEAR Routine 03/29/2024 12:00 AM EST MM TOMOSYNTHESIS SCREENING BI 03/05/2024 11:04 AM EST LAB COLOGUARD COLON CANCER SCREEN Routine 09/19/2023 12:30 PM EDT Screening for colon cancer THINPREP TIS PAP REFLEX HPV MRNA E6/E7 (17939) Routine 03/18/2019 from Last 3 Months or Most Recently Relevant to Health Maintenance Results * Holter monitor (10/27/2024 10:53 AM EDT) us Enrique Alba MD CV CARDIAC SERVICES PROCEDUR ES Final Result [facility] [place] [address], * METRO IRON AND TIBC (10/27/2024 7:21 AM EDT) TBH IRON 65.0 50.0 - 170.0 ug/dL TBH TBH TOTAL IRON BINDING CAPACITY 299.0 250.0 - 450.0 ug/dL TBH TBH PERCENT IRON SATURATION 21.7 % TBH 10/27/2024 7:21 AM EDT 10/27/2024 7:37 AM EDT Narrative [facility] - 10/27/2024 8:36 AM EDT Enrique Alba MD CLINISYNC Final Result [facility] TB * ALL CBC WITH AUTO DIFF (10/27/2024 7:21 AM EDT) TBH WBC 5.1 4.0 - 11.0 10 3/uL TBH TBH RBC 5.27 4.20 - 5.40 10 6/uL TBH TBH HGB 14.8 12.0 - 16.0 g/dL TBH TBH HCT 43.9 36.0 - 48.0 % TBH TBH MCV 83.3 81.0 - 99.0 fL TBH TBH MCH 28.1 26.7 - 34.0 pg TBH TBH MCHC 33.7 29.9 - 35.2 g/dL TBH TBH RDW 13.7 11.0 - 15.0 % TBH TBH PLT 199 150 - 450 10 3/uL TBH TBH MPV 10.0 9.5 - 13.5 fL TBH NEUTROPHILS PERCENT AUTO 64.7 43.0 - 75.0 % TBH LYMPHOCYTES PERCENT AUTO 26.3 20.5 - 60.0 % TBH MONOCYTES PERCENT AUTO 6.2 1.7 - 12.0 % TBH TBH EO % 1.8 0.9 - 7.0 % TBH BASOPHILS PERCENT AUTO 0.6 0.2 - 2.0 % TBH IMMATURE GRANULOCYTES PCT AUTO 0.4 0.0 - 0.5 % TBH NEUTROPHILS ABSOLUTE AUTO 3.3 1.4 - 6.5 10 3/uL TBH LYMPHOCYTES ABSOLUTE AUTO 1.4 1.2 - 3.8 10 3/uL TBH MONOCYTES ABSOLUTE AUTO 0.3 0.3 - 0.8 10 3/uL TBH TBH EO # 0.1 0.0 - 0.7 10 3/uL TBH BASOPHILS ABSOLUTE AUTO 0.0 0.0 - 0.1 10 3/uL TBH IMMATURE GRANULOCYTES ABS AUTO 0.02 0.00 - 0.03 10 3/uL TBH 10/27/2024 7:21 AM EDT 10/27/2024 7:37 AM EDT Narrative CLINISYNC - 10/27/2024 7:50 AM EDT Enrique Alba MD CLINISYNC Final Result Performing Organization Address City/[facility] Co de Phone Number CLINISYNC TBH * Pap Smear (03/29/2024 12:00 AM EST) Swab Cervical swab / Unknown Bonilla Page [facility] Ob LAB CYTOLOGY ORDERABLES Final Result Performing Organization Address City/[facility] Co de Phone Number EXTERNAL LAB * MM TOMOSYNTHESIS SCREENING BI (03/05/2024 11:04 AM EST) Anatomical Region Laterality Modality Other 03/05/2024 11:0 4 AM EST Narrative 03/05/2024 11:05 AM EST [address] [address] Mammography Report Signed Patient: Naima Rios MR#: [id number] : 1970 Acct:[id number] Age/Sex: 53 / F ADM Date: 03/05/24 Loc: MAMMO Attending Dr: ENRIQUE ALBA Ordering Physician: ENRIQUE ALBA Results: Date of Service: 03/05/24 Follow Up: Procedure(s): MM tomosynthesis screening BI Accession Number(s): [id number] cc: ENRIQUE ALBA Patient Name: NAIMA RIOS MR#: [id number] : 1970 Exam Date: 03/05/2024 Ordering Doctor: DR ENRIQUE ALBA . RADIOLOGY REPORT PROCEDURE: MM TOMOSYNTHESIS SCREENING BI COMPARISON: MG MAMM SCREEN 3D RONEN CAD, 11/05/2021. MAMMO RONEN SCREEN, 07/12/2020. MG MAMM SCREEN RONEN W CAD, 05/14/2019. MG MAMM RONEN DIAG W CAD DIG, 05/12/2013. INDICATIONS: Screening Calculator Name [facility] Breast Cancer Risk Assessment Tool 5 Year Breast Cancer Risk 1.80% Lifetime Breast Cancer Risk 13.50% Personal Breast Cancer No Personal Ovarian Cancer No Treatments None Family Cancers None LOCATION: [facility] BREAST COMPOSITION: There are scattered areas of [...] Signed By: 03/05/24 1105 DD/ 1104 TD/TT: Cash Register Servicer: Procedure Note Radiology, Radiologist, MD - 03/05/2024 [facility] [place] [id number] Mammography Report Signed Patient: Naima Rios MMR#: [id number] : 1970Acct:[id number] Age/Sex: 53 / FADM Date: 03/05/24 Loc: MAMMO Attending Dr: ENRIQUE ALBA Ordering Physician: ENRIQUE ALBAResults: Date of Service: 03/05/24Follow Up: Procedure(s): MM tomosynthesis screening BI Accession Number(s): [id number] cc: ENRIQUE ALBA Patient Name: NAIMA RIOS MR#: [id number] : 1970 Exam Date: 03/05/2024 Ordering Doctor: [...] Treatments None Family Cancers None LOCATION: [facility] BREAST COMPOSITION: There are scattered areas of [...] M.D. Signed By:03/05/24 1105 DD/ 1104 TD/TT: Cash Register Servicer: Enrique Alba MD CLINISYNC IMAGING Final Resu lt * Cologuard® colon cancer screening (09/19/2023 12:30 PM EDT) NONINV COLON CA DNA+OCC BLD SCRN STL-IMP Negative Negative 09/25/2023 9:11 AM EDT [facility] (CLIA #:[id number]) Comment: NEGATIVE TEST RESULT. A negative Cologuard [...] (Jonel Boyd al, N Engl J Med 2014;370(14):2679-3214) The normal value (reference range) for this assay is negative. COLOGUARD RE-SCREENING RECOMMENDATION: Periodic colorectal cancer screening is an important part of preventive healthcare for asymptomatic individuals at average risk for colorectal cancer. Following a negative Cologuard result, the [place] [employer] and U.S. Multi-Society Task Force screening guidelines recommend a Cologuard re-screening interval of 3 years. References: [place] [employer] Guideline for Colorectal Cancer Screening: https://www.cancer.org/cancer/ogmgn-jlpjrj-qemink/gzizwbkwj-oiwvnfizd-olueuzc/ac s-rec ommendations.html.; Dave MENDOSA, [place] MARK, Hernesto FelizK, Colorectal Cancer Screening: Recommendations for Physicians and Patients from the U.S. Multi-Society Task Force on Colorectal Cancer Screening , Am J Gastroenterology 2017; 112:7227-2110. TEST DESCRIPTION: Composite algorithmic analysis of stool [...] screened with both Cologuard and colonoscopy. (Jonel Welch et al, N Engl J Med 2014;370(14):0976-1312.) Cologuard may produce a false negative or false positive result (no colorectal cancer or precancerous polyp present at colonoscopy follow up). A negative Cologuard test result does not guarantee the absence of CRC or advanced adenoma (pre-cancer). The current Cologuard screening interval is every 3 years. ([place] [employer] Society and U.S. Multi-Society Task Force). Cologuard performance data in a 10,000 patient pivotal study using colonoscopy as the reference method can be accessed at the following location: www.[facility]/results. Additional description of the Cologuard test process, warnings and precautions can be found at www.[facility]MedBook[facility].Innohat. Stool specimen (specimen) 09/19/2023 12:30 PM EDT 09/20/2023 7:56 AM EDT Enrique Alba MD LAB MOLECULAR DIAGNOSTICS OR DERABLES Final Result [facility] (CLIA #:[id number]) [address] [place] [address], * THINPREP TIS PAP REFLEX HPV MRNA E6/E7 (70911) (03/18/2019) CLINICAL INFORMATION: None given [facility] [...] LAB Comment: [facility], CT(ASCP) CT screening location: [facility], [address] [place] [address], [place] [address]. COMMENT SEE COMMENT [facility] EXTERNAL [...] with historic and current clinical information. 03/18/2019 us Pat Alfred DO [facility] Final Resul t [facility] EX[facility] from Last 3 Months or Most Recently Relevant to Health Maintenance Insurance [employer] Care Teams Medical Research Assistant Relationship Specialty Start Date End Date Enrique Alba MD (Fax) PCP - General Family Medicine 09/16/22
--- OUTSIDE RECORDS SUMMARY | 2024-10-30 08:11 | XMS_ITS | Encounter Summary ---
Author Organization [facility] Address [address] [place] [address] Care Team Providers Care Claim Approver Name Role Phone Enrique Burgos MD Primary Care Provider [phone] Encounter Details Date Type Department Care Team (Late st Contact Info) Description 10/27/2024 Clinisync Result Encounter NOMS External Department Unsolicited Enrique Burgos MD [address] [place] [address] Social History Tobacco Use Types Packs/Day Years [...] How often do you attend chur or baptism services? More than 4 times per year 12/15/2023 Do you belong to any clubs o r organizations such as christian groups, unions, fraternal or athletic groups, or [...] Recorded Patient Health Questionnaire-2 Score 0 08/02/2024 [facility] Occupat ional Health - [...] to sleep or slept in a senior living (including now)? No 09/18/2022 Housing Stability Vital Sign Answer Jules e Recorded In the last 12 months, was t here a time when you were not able to pay the mortgage or rent on time? No 12/15/2023 In the past 12 months, how m any times have you moved where you were living? 0 12/15/2023 At any time in the past 12 m [facility], were you homeless or living in a senior living (including now)? 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 Not on file Not on file documented as of this encounter Plan of Treatment Upcoming Encounters Date Type Department Care Team (Late st Contact Info) Description 04/04/2025 3:00 PM EST Office Visit [facility] OB [address] [place] [address] [place] [address] Janey Savage PA [address] [place] [address] [place] [address] documented as of this encounter Procedures Procedure Name Priority Date/Time Associated Diagnosis Comments METRO IRON AND TIBC Routine 10/27/2024 7 :21 AM EDT ALL CBC WITH AUTO DIFF Routine 10/27/2024 7:21 AM EDT documented in this encounter Results * METRO IRON AND TIBC (10/27/2024 7:21 AM EDT) TBH IRON 65.0 50.0 - 170.0 ug/dL TBH TBH TOTAL IRON BINDING CAPACITY 299.0 250.0 - 450.0 ug/dL TBH TBH PERCENT IRON SATURATION 21.7 % TBH 10/27/2024 7:21 AM EDT 10/27/2024 7:37 AM EDT Narrative CLINISYNC - 10/27/2024 8:36 AM EDT Enrique Burgos MD CLINISYNC Final Result [facility] * ALL CBC WITH AUTO DIFF (10/27/2024 [...] CLINISYNC - 10/27/2024 7:50 AM EDT Enrique Burgos MD [facility] documented in this encounter Visit Diagnoses Not on filedocumented in this encounter Care Teams Claim Approver Relationship Specialty Start Date End Date Enrique Burgos MD PCP - General Family Medicine 09/16/22 documented as of this encounter
--- OUTSIDE RECORDS SUMMARY | 2024-10-30 08:11 | XMS_ITS | Encounter Summary ---
Author Organization [facility] Address [address] [place] [address] Care Team Providers Care Vending Mechanic Name Role Phone Enrique Burgos MD Primary Care Provider Encounter Details Date Type Department Care Team (Late st Contact Info) Description 01/28/2023 Abstract [facility] FM [address] [place] [address] Enrique Burgos MD [address] [place] [address] [address] [place] [address] Social History Tobacco Use Types [...] week 09/18/2022 How often do you attend [facility] or restorationism services? More than 4 times [...] Recorded Patient Health Questionnaire-2 Score 0 11/14/2022 [facility] Occupat ional Health - Occupational Stress [...] in a retirement (including now)? No 09/18/2022 Education Answer Date [...] [address] [place] [address] Janey Savage PA [address] [place] [address] documented as of this encounter Visit Diagnoses Not on filedocumented in this encounter Care Teams Vending Mechanic Relationship Specialty Start Date End Date Enrique Burgos MD PCP - General Family Medicine 09/16/22 documented as of this encounter
--- OUTSIDE RECORDS SUMMARY | 2024-10-30 08:11 | XMS_ITS | Encounter Summary ---
Author Organization [facility] Address [address] [place] [address] Care Team Providers Care Chief Technical Officer Name Role Phone Enrique Burgos MD Primary Care Provider Encounter Details Date Type Department Care Team (Late st Contact Info) Description 03/09/2024 Abstract [facility] [address] [facility] [address] [place] [address] Enrique Burgos MD [address] [facility] [address] [place] [address] Social History Tobacco Use Types Packs/Day Years [...] How often do you attend chur or adventist services? More than 4 times per year 12/15/2023 Do you belong to any clubs o r organizations such as rastafarian groups, unions, fraternal or athletic groups, or [...] Recorded Patient Health Questionnaire-2 Score 0 11/14/2022 [facility] ion[facility] Health - Occupational Stress Questionnaire Answer Date [...] place to sleep or slept in a jail (including now)? No 09/18/2022 Housing Stability Vital Sign Answer Jules e Recorded In the last 12 months, was t here a time when you were not able to pay the mortgage or rent on time? No 12/15/2023 In the past 12 months, how m any times have you moved where you were living? 0 12/15/2023 At any time in the past 12 m [facility], were you homeless or living in a jail (including now)? 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
--- OUTSIDE RECORDS SUMMARY | 2024-10-30 08:11 | XMS_ITS | Encounter Summary ---
Author Organization [facility] Address [address] [place] [address] Care Team Providers Care Fish And Wildlife Warden Name Role Phone Enrique Burgos MD Primary Care Provider [phone] Encounter Details Date Type Department Care Team (Late st Contact Info) Description 04/09/2023 Orders Only [facility] FM [address] [place] [address] Enrique Burgos MD [address] [place] [address] [address] [place] [address] Social History Tobacco Use Types Packs/Day Years [...] 09/18/2022 How often do you attend [facility] or sikhism services? More than 4 times per year 09/18/2022 Do you belong to any clubs o r organizations such as uatsdin groups, unions, fraternal or athletic groups, or [...] Recorded Patient Health Questionnaire-2 Score 0 11/14/2022 [facility] of Occupat ional Health - Occupational Stress [...] a senior care (including now)? 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
--- OUTSIDE RECORDS SUMMARY | 2024-10-30 08:11 | XMS_ITS | Encounter Summary ---
Author Organization [facility] Address [address] [place] [address] Care Team Providers Care Resource Room Teacher Name Role Phone Mark, Ronak E Primary Care Provider Taylor Mejia RD Unavailable Source Comments In the event this information is protected by the Federal Confidentiality of Alcohol and Drug AbusePatient Records regulations: The Federal rules restrict any use of the information to criminally investigate or prosecute any alcohol or drug abuse patient.[facility] Encounter Details Date Type Department Care Team (Late st Contact Info) Description 10/30/2022 Patient Msg Urology [address] [place] [address] Provider, Ccf REMINDER TO SCHEDULE [...] is lower risk 8 10/30/2022 Data from: https://www.neighborhoodatlas.[facility].edu/. Last address used for calculation [address] [facility] 10/30/2022 Comments No Sex and Gender Information Value Date Recorded Sex Assigned at Not on file Legal Sex Female 8:03 AM EST Gender Identity Not on file Sexual Orientation Not on file documented as of this encounter Plan of Treatment Not on file documented as of this encounter Visit Diagnoses Not on filedocumented in this encounter Care Teams Resource Room Teacher Relationship Specialty Start Date End Date Ronak Flores PCP - General Internal Medicine 08/26/[address] [place] [id number] Registered Dietitian Nutrition 12/05/22 documented as of this encounter
--- OUTSIDE RECORDS SUMMARY | 2024-10-30 08:11 | XMS_ITS | Encounter Summary ---
Author Organization [facility] Address [address] [place] [address] Care Team Providers Care Scrum Master Name Role Phone Enrique Burgos MD Primary Care Provider Encounter Details Date Type Department Care Team (Late st Contact Info) Description 10/27/2024 Orders Only [facility] [address] [place] [address] Enrique Burgos MD [address] [facility] [address] [place] [address] Social History Tobacco Use Types Packs/Day Years [...] How often do you attend chur or roman catholic services? More than 4 times per year 12/15/2023 Do you belong to any clubs o r organizations such as sabianist groups, unions, fraternal or athletic groups, or [...] Recorded Patient Health Questionnaire-2 Score 0 08/02/2024 [facility] of Occupat ionmo Health - Occupational Stress [...] place to sleep or slept in a alf (including now)? No 09/18/2022 Housing Stability Vital Sign Answer Jules e Recorded In the last 12 months, was t here a time when you were not able to pay the mortgage or rent on time? No 12/15/2023 In the past 12 months, how m any times have you moved where you were living? 0 12/15/2023 At any time in the past 12 m [facility], were you homeless or living in a alf (including now)? 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
--- OUTSIDE RECORDS SUMMARY | 2024-10-30 08:11 | XMS_ITS | Encounter Summary ---
Author Organization [facility] Address [address] [place] [address] Care Team Providers Care Work Order Clerk Name Role Phone Mark, Ronak E Primary Care Provider Taylor Mejia RD Unavailable Source Comments In the event this information is protected by the Federal Confidentiality of Alcohol and Drug AbusePatient Records regulations: The Federal rules restrict any use of the information to criminally investigate or prosecute any alcohol or drug abuse patient.[facility] Encounter Details Date Type Department Care Team (Late st Contact Info) Description 12/05/2022 Patient Msg Nutrition Therapy [address] [place], [place] [id number] Provider, Ccf Nutrition Summary Social History Tobacco [...] is lower risk 8 10/30/2022 Data from: https://www.neighborhoodatlas.medicine.[facility].edu/. Last address used for calculation [address] [facility] 10/30/2022 Comments No Sex and Gender Information Value Date Recorded Sex Assigned at Not on file Legal Sex Female 8:03 AM EST Gender Identity Not on file Sexual Orientation Not on file documented as of this encounter Plan of Treatment Not on file documented as of this encounter Visit Diagnoses Not on filedocumented in this encounter Care Teams Work Order Clerk Relationship Specialty Start Date End Date Ronak Flores PCP - General Internal Medicine 08/26/[address] [place] [address] Registered Dietitian Nutrition 12/05/22 documented as of this encounter
--- OUTSIDE RECORDS SUMMARY | 2024-10-30 08:11 | XMS_ITS | Encounter Summary ---
Author Organization [facility] Address [address] [place] [address] Care Team Providers Care Graphic Designer Name Role Phone Enrique Burgos MD Primary Care Provider [phone] Reason for Referral * Imaging (Routine) - Authorized Specialty Diagnoses / Procedures Referred By Contac t Referred To Contact Diagnoses Anginal equivalent Sinus tachycardia Multifocal PVCs with pairing Status post bilateral knee replacements Limited mobility Other chronic pain Morbid obesity (CMS-HCC) Mixed dyslipidemia Primary hypertension Procedures STRESS TEST Enrique Wilcox MD 112 [facility] 100 [place] [address] Phone: tel: fax: Referral ID Status Reason Start Date Expiration Date V isits Requested Visits Authorized [id number] Authorized 10/27/2024 04/25/2025 1 1 Reason for Visit * Reason Onset Date Comments Care Coordination 10/27/2024 Encounter Details Date Type Department Care Team (Late st Contact Info) Description 10/27/2024 Telephone [facility] [address] [facility] [address] [place] [address] Enrique Burgos MD 112 [facility] 100 [place] [address] (Fax) Care Coordination Social History Tobacco Use Types Packs/Day Years [...] How often do you attend chur or pentecostalism services? More than 4 times per year [...] Recorded Patient Health Questionnaire-2 Score 0 08/02/2024 [facility] [place] of Occupat ional Health - Occupational Stress [...] place to sleep or slept in a custodial (including now)? No 09/18/2022 Housing Stability Vital Sign Answer Jules e Recorded In the last 12 months, was t here a time when you were not able to pay the mortgage or rent on time? No 12/15/2023 In the past 12 months, how m any times have you moved where you were living? 0 12/15/2023 At any time in the past 12 m [facility], were you homeless or living in a custodial (including now)? 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 He/She knows to contact office with any further questions. * Telephone Encounter - Enrique Burgos MD - 10/27/2024 12:29 PM EDT Patient with primary complaint of dyspnea intermittently, I suspect this is an anginal equivalent. She also notes palpitations and occasionally her watch records her heart rate greater than 130 beatsper minute. She is also fatigued. I reviewed the Holter report as well as the raw data itself. She does have episodes of sinus tachycardia. She had 9 triggered events the majority of those were sinus tachycardia. She also has multifocal PVCs and at least 1 documented multifocal couplet. There were some PACs noted also. Cardiac risk factors include: dyslipidemia, hypertension, Morbid obesity (BMI >= 48.7 kg/m2), and sedentary lifestyle. She has bilateral knee replacements limiting her mobility along with the chronic pain, the obesity,and the sedentary lifestyle preventing standard treadmill testing. Recommend Continue aspirin Lexiscan stress test documented in this encounter Plan of Treatment Upcoming Encounters Date Type Department Care Team (Late st Contact Info) Description 04/04/2025 3:00 PM EST Office Visit [facility] OB [address] [place] [address] [place] [address] Janey Savage PA [address] [facility] [place] [address] Scheduled Orders Name Type Priority Associated Diagnoses Orde r Schedule STRESS TEST LEXISCAN Imaging Routine Anginal equivalent Sinus tachycardia Multifocal PVCs with pairing Status post bilateral knee replacements Limited mobility Other chronic pain Morbid obesity (CMS-HCC) Mixed dyslipidemia Primary hypertension Expected: 10/27/2024 (Approximate), Expires: 10/27/2025 documented as of this encounter Visit Diagnoses Diagnosis Anginal equivalent- Primary Sinus tachycardia Other specified cardiac dysrhythmias Multifocal PVCs with pairing Status post bilateral knee replacements Limited mobility Other chronic pain Morbid obesity (CMS-HCC) Morbid obesity Mixed dyslipidemia Primary hypertension Unspecified essential hypertension documented in this encounter Care Teams Graphic Designer Relationship Specialty Start Date End Date Enrique Burgos MD (Fax) PCP - General Family Medicine 09/16/22 documented as of this encounter
--- OUTSIDE RECORDS SUMMARY | 2024-10-30 08:11 | XMS_ITS | Encounter Summary ---
Author Organization [facility] Address [address] [place] [address] Care Team Providers Care Legal Clerk Name Role Phone Enrique Alba MD Primary Care Provider [phone] Encounter Details Date Type Department Care Team (Late st Contact Info) Description 03/05/2024 Clinisync Result Encounter [facility] External Department Unsolicited Enrique Alba MD [address] [place] [address] Social History Tobacco Use Types Packs/Day Years [...] How often do you attend chur or scientologist services? More than 4 times per year 12/15/2023 Do you belong to any clubs o r organizations such as restorationist groups, unions, fraternal or athletic groups, or [...] Recorded Patient Health Questionnaire-2 Score 0 11/14/2022 [facility] of Occupat ional Health - [...] place to sleep or slept in a longterm (including now)? No 09/18/2022 Housing Stability Vital Sign Answer Jules e Recorded In the last 12 months, was t here a time when you were not able to pay the mortgage or rent on time? No 12/15/2023 In the past 12 months, how m any times have you moved where you were living? 0 12/15/2023 At any time in the past 12 m [facility], were you homeless or living in a longterm (including now)? 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 Not on file Not on file documented as of this encounter Plan of Treatment Upcoming Encounters Date Type Department Care Team (Late st Contact Info) Description 04/04/2025 3:00 PM EST Office Visit [facility] OB [address] [place] [address] [place] [phone] Janey Savage PA [address] [place] [address] [place] [address] documented as of this encounter Procedures Procedure Name Priority Date/Time Associated Diagnosis Comments MM TOMOSYNTHESIS SCREENING BI 03/05/2024 11:04 AM EST documented in this encounter Results * MM TOMOSYNTHESIS SCREENING BI (03/05/2024 11:04 AM EST) Anatomical Region Laterality Modality Other 03/05/2024 11:0 4 AM EST Narrative 03/05/2024 11:05 AM EST The [address] [address] Mammography Report Signed Patient: Naima Hernandez MR#: [id number] : 1970 Acct:[id number] Age/Sex: 53 / F ADM Date: 03/05/24 Loc: MAMMO Attending Dr: ENRIQUE ALBA Ordering Physician: ENRIQUE ALBA Results: Date of Service: 03/05/24 Follow Up: Procedure(s): MM tomosynthesis screening BI Accession Number(s): [id number] cc: ENRIQUE ALBA Patient Name: NAIMA HERNANDEZ MR#: [id number] : 1970 Exam Date: 03/05/2024 Ordering Doctor: [...] Treatments None Family Cancers None LOCATION: [facility] BREAST COMPOSITION: There are scattered areas [...] Signed By: 03/05/24 1105 DD/ 1104 TD/TT: Capacity Planning Manager: Procedure Note Radiology, Radiologist, MD - 03/05/2024 [place] [address] Mammography Report Signed Patient: Naima Hernandez MMR#: [id number] : 1970Acct:[id number] Age/Sex: 53 / FADM Date: 03/05/24 Loc: MAMMO Attending Dr: ENRIQUE ALBA Ordering Physician: ENRIQUE ALBAResults: Date of Service: 03/05/24Follow Up: Procedure(s): MM tomosynthesis screening BI Accession Number(s): [id number] cc: ENRIQUE ALBA Patient Name: NAIMA HERNANDEZ MR#: [id number] : 1970 Exam Date: 03/05/2024 Ordering Doctor: [...] Treatments None Family Cancers None LOCATION: [facility] BREAST COMPOSITION: There are scattered areas [...] M.D. Signed By:03/05/24 1105 DD/ 1104 TD/TT: Capacity Planning Manager: us Enrique Alba MD [facility] Final Resu lt documented in this encounter Visit Diagnoses Not on filedocumented in this encounter Care Teams Legal Clerk Relationship Specialty Start Date End Date Enrique Alba MD PCP - General Family Medicine 09/16/22 documented as of this encounter
--- OUTSIDE RECORDS SUMMARY | 2024-10-30 08:11 | XMS_ITS | Encounter Summary ---
Author Organization [facility] Address [address] [place] [address] Care Team Providers Care Director Business Development Name Role Phone Enrique Burgos MD Primary Care Provider Encounter Details Date Type Department Care Team (Late st Contact Info) Description 03/08/2024 Orders Only [facility] FM [address] [place] [address] Enrique Burgos MD 112 [facility] [address] [place] [address] Social History Tobacco Use Types Packs/Day Years [...] How often do you attend chur or christian services? More than 4 times per year 12/15/2023 Do you belong to any clubs o r organizations such as denominational groups, unions, fraternal or athletic groups, or [...] [facility] of Occupat ionok Health - Occupational Stress Questionnaire Answer Date [...] in a mcc (including now)? No 09/18/2022 Housing Stability Vital Sign Answer Jules e Recorded In the last 12 months, was t here a time when you were not able to pay the mortgage or rent on time? No 12/15/2023 In the past 12 months, how m any times have you moved where you were living? 0 12/15/2023 At any time in the past 12 m [facility], were you homeless or living in a mcc (including now)? 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
--- OUTSIDE RECORDS SUMMARY | 2024-10-30 08:11 | XMS_ITS | Encounter Summary ---
Author Organization [facility] Address [address] [place] [address] Care Team Providers Care Cash Register Operator Name Role Phone Mark Ronak Valentino Primary Care Provider Taylor Mejia RD Unavailable Source Comments In the event this information is protected by the Federal Confidentiality of Alcohol and Drug AbusePatient Records regulations: The Federal rules restrict any use of the information to criminally investigate or prosecute any alcohol or drug abuse patient.[facility] Encounter Details Date Type Department Care Team (Late st Contact Info) Description 05/18/2013 Patient Msg Medical Records [address] [place] [address] Provider, Cc RE: Appointment Cancellation Request Social [...] on filedocumented in this encounter Care Teams Cash Register Operator Relationship Specialty Start Date End Date Ronak Flores PCP - General Internal Medicine 08/26/[address] [place] [address] [place] [phone] Registered Dietitian Nutrition 12/05/22 documented as of this encounter
--- OUTSIDE RECORDS SUMMARY | 2024-10-30 08:11 | XMS_ITS | Encounter Summary ---
Author Organization [facility] Address [address] [place] [address] Care Team Providers Care Casing Builder Name Role Phone Enrique Burgos MD Primary Care Provider [phone] Encounter Details Date Type Department Care Team (Late st Contact Info) Description 08/16/2024 Orders Only [facility] [address] [place] [address] RachelJuly, Screening mammogram for breast cancer; Menopausal [...] How often do you attend chur or mormon services? More than 4 times per year 12/15/2023 Do you belong to any clubs o r organizations such as hinduism groups, unions, fraternal or athletic groups, or [...] Recorded Patient Health Questionnaire-2 Score 0 08/02/2024 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 Not on file Not on file Not on file documented as of this encounter Plan of Treatment Upcoming Encounters Date Type Department Care Team (Late st Contact Info) Description 04/04/2025 3:00 PM EST Office Visit [facility] OB [address] [place] [address] Janey Savage PA 102 [facility] [place] [address] documented as of this encounter Visit Diagnoses Diagnosis Screening mammogram for breast cancer Menopausal and female climacteric states Osteoporosis screening Special screening for osteoporosis Encounter for follow-up examination after completed treatment for conditions other than malignant neoplasm documented in this encounter Care Teams Casing Builder Relationship Specialty Start Date End Date Enrique Burgos MD (Fax) PCP - General Family Medicine 09/16/22 documented as of this encounter
--- OUTSIDE RECORDS SUMMARY | 2024-10-30 08:11 | XMS_ITS | Encounter Summary ---
Author Organization [facility] Address [address] [place] [address] Care Team Providers Care Sustainability Project Coordinator Name Role Phone Enrique Burgos MD Primary Care Provider [phone] Encounter Details Date Type Department Care Team (Late st Contact Info) Description 03/23/2024 Orders Only [facility] OB [address] [place] [address] Charisse Elmore LPN [address] [facility] [address] [facility] [place] [id number] Social History Tobacco Use Types Packs/Day Years [...] How often do you attend chur or caodaism services? More than 4 times per year 12/15/2023 Do you belong to any clubs o r organizations such as restoration groups, unions, fraternal or athletic groups, or [...] Questionnaire-2 Score 0 11/14/2022 [facility] - Occupational Stress Questionnaire Answer Date [...] a long term (including now)? No 09/18/2022 Housing Stability Vital [...] time in the past 12 m [facility], were you homeless or living in a long term (including now)? 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 file Not on file Not on file documented as of this encounter Plan of Treatment Upcoming Encounters Date Type Department Care Team (Late st Contact Info) Description 04/04/2025 3:00 PM EST Office Visit [facility] OB [address] [place] [address] Janey Savage PA [address] [facility] [place] [address] documented as of this encounter Procedures Procedure Name Priority Date/Time Associated Diagnosis Comments PAP SMEAR Routine 03/29/2024 12:00 AM EST PAP SMEAR Routine 11/01/2022 12:00 AM EDT documented in this encounter Results * Pap Smear (03/29/2024 12:00 AM EST) Swab Cervical swab / Unknown Bonilla Nurse [facility] Ob LAB CYTOLOGY ORDERABLES Final Result Performing Organization Address [facility] Co de Phone Number EXTERNAL LAB * Pap Smear (11/01/2022 12:00 AM EDT) Swab Cervical swab / Unknown Bonilla Nurse [facility] Ob LAB CYTOLOGY ORDERABLES Final Result EXTERNAL LAB documented in this encounter Visit Diagnoses Not on filedocumented in this encounter Care Teams Sustainability Project Coordinator Relationship Specialty Start Date End Date Enrique Burgos MD PCP - General Family Medicine 09/16/22 documented as of this encounter
--- OUTSIDE RECORDS SUMMARY | 2024-10-30 08:11 | XMS_ITS | Encounter Summary ---
Author Organization [facility] Address [address] [place] [address] Care Team Providers Care Structural Steel Engineer Name Role Phone Enrique Burgos MD Primary Care Provider Encounter Details Date Type Department Care Team (Late st Contact Info) Description 12/25/2023 Orders Only [facility] [address] [place] [address] Enrique Burgos MD 112 [facility] [address] [place] [address] Social History Tobacco Use Types Packs/Day Years [...] How often do you attend chur or worship services? More than 4 times per year [...] Health Questionnaire-2 Score 0 11/14/2022 [facility] of Occupat ionak Health - Occupational Stress Questionnaire Answer Date [...] place to sleep or slept in a fpc (including now)? No 09/18/2022 Housing Stability Vital [...] were you homeless or living in a fpc (including now)? 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
--- OUTSIDE RECORDS SUMMARY | 2024-10-30 08:11 | XMS_ITS | Clinical Summary ---
Author Organization [employer] tem Address [id number] [address] [place] [address] Care Team Providers Care Payroll Tax Specialist Name Role Phone Enrique Burgos MD Primary Care Provider [phone] Social History Tobacco Use Types Packs/Day Years [...] 12/27/2024 [employer] Not on file Insurance [id number] PLAN Care Teams Payroll Tax Specialist Relationship Specialty Start Date End Date Enrique Burgos MD PCP - General Family Medicine 07/12/20
--- OUTSIDE RECORDS SUMMARY | 2024-10-30 08:11 | XMS_ITS | Clinical Summary ---
Author Organization [facility] Address [address] [place] [address] Care Team Providers Care Legal Support Manager Name Role Phone Ronak Flores Primary Care Provider Taylor Mejia RD Unavailable [phone] Allergies No known active allergies Medications albuterol [...] is lower risk 8 10/30/2022 Data from: https://[email or web address].edu/. Last address used for calculation [address] [place] [address] 10/30/2022 Comments No Sex and Gender Information [...] 07/27/2021, 03/08/2021, Additional history exists Influenza Vaccine (#1) 2024 , 01/27/2021, 02/02/2020, Additional history exists Shingrix Vaccine Completed 02/10/2021, 12/02/2020 Medical Devices Implanted Type Area Tunnel Elastic Operator Chainstitch Device Identifier Shelf Expiration Date Model / Serial / Lot Simplex P Bone Cement Radiopaque Full Dose Individual Pack - [id number] Implanted:Qty: 1 on 10/27/2012 at [facility] Cement / Putty [employer] 02/25/2015 [id number] / / [id number] Simplex P Bone Cement Radiopaque Full Dose Individual Pack - [id number] Implanted:Qty: 1 on 10/27/2012 at [facility] Cement / Putty [employer] 01/25/2014 [id number] / / [id number] Simplex P Bone Cement Radiopaque Full Dose Individual Pack - [id number] Implanted:Qty: 2 on 03/30/2013 at [facility] Cement / Putty [employer] 06/26/2015 [id number] / / [id number] Ins Tib 4 13mm Kn X3 Cr Trthln - [id number] Implanted:Qty: 1 on 10/27/2012 at [facility] Joint - Knee [employer] 02/25/2017 [id number] / / [id number] Comp Fem 4 Lt Kn Cr Ivan Trthln - [id number] Implanted:Qty: 1 on 10/27/2012 at [facility] Joint - Knee [employer] [employer] 05/20/2017 [id number] / / [id number] Comp Fem 4 Rt Kn Cr Ivan Trthln - [id number] Implanted:Qty: 1 on 03/30/2013 at [facility] Joint - Knee [employer] [employer] 11/03/2017 [id number] / / [id number] Ins Tib 3 9mm Kn X3 Cr Trthln - [id number] Implanted:Qty: 1 on 03/30/2013 at [facility] Joint - Knee [employer] [employer] 02/23/2018 [id number] / / [id number] Comp Pat 10mm 32mm Asym Trthln - [id number] Implanted:Qty: 1 on 10/27/2012 at [facility] Joint - Patella [employer] 09/01/2017 [id number] / / [id number] Comp Pat 10mm 32mm Asym Trthln - [id number] Implanted:Qty: 1 on 03/30/2013 at [facility] Joint - Patella [employer] 12/30/2017 [id number] / / [id number] Baseplt Tib Trthln 4 Prim - [id number] Implanted:Qty: 1 on 10/27/2012 at [facility] Plate [employer] 08/03/2017 [id number] / / [id number] Baseplt Tib Trthln 3 Prim - [id number] Implanted:Qty: 1 on 03/30/2013 at [facility] [employer] 03/10/2018 [id number] / / [id number] Procedures Procedure Name Priority Date/Time Associated Diagnosis Comments BASIC METABOLIC PANEL Routine 03/31/2013 10:32 PM EST from Last 3 Months or Most Recently Relevant to Health Maintenance Results * (ABNORMAL) BASIC METABOLIC PNL (03/31/2013 10:32 PM EST) Glucose 157(H) 65 - 100 mg/dL [facility] BUN 10 8 - 25 mg/dL [facility] Creatinine 0.72 0.70 - 1.40 mg/dL [facility] Sodium 136 132 - 148 mmol/L [facility] Potassium 4.3 3.5 - 5.0 mmol/L [facility] Chloride 102 98 - 110 mmol/L [facility] CO2 22(L) 23 - 32 mmol/L [facility] Anion Gap 12 0 - 15 mmol/L [facility] Calcium 8.6 8.5 - 10.5 mg/dL [facility] Blood specimen (specimen) BLOOD SPECIMEN / Unknown 03/31/2013 10:32 PM EST 03/31/2013 10:33 PM EST Carlton Denny MD LABORATORY Final Result [facility] [address] [place] [address] from Last 3 Months or Most Recently Relevant to Health Maintenance [place] [place] [address] Care Teams Legal Support Manager Relationship Specialty Start Date End Date Ronak Flores PCP - General Internal Medicine 08/26/[address] [place] [phone] Registered Dietitian Nutrition 12/05/22
--- OUTSIDE RECORDS SUMMARY | 2024-10-30 08:11 | XMS_ITS | Encounter Summary ---
Author Organization [facility] Address [address] [place] [address] Care Team Providers Care Fire Control System Installer Name Role Phone Enrique Alba MD Primary Care Provider [phone] Encounter Details Date Type Department Care Team (Late st Contact Info) Description 03/05/2024 Clinisync Result Encounter [facility] External Department Unsolicited Enrique Alba MD [address] [place] [address] Social History Tobacco Use Types Packs/Day Years [...] How often do you attend chur or mandaen services? More than 4 times per year 12/15/2023 Do you belong to any clubs o r organizations such as zoroastrianism groups, unions, fraternal or athletic groups, or [...] Recorded Patient Health Questionnaire-2 Score 0 11/14/2022 [facility] - Occupational [...] any time in the past 12 m [facility], were you homeless or living in a [...] PM EST Office Visit [facility] [address] [place] [address] [place] [id number] Janey Savage PA [address] [place] [address] Dr [place] [id number] documented as of this encounter Procedures Procedure Name Priority Date/Time Associated Diagnosis Comments XR DEXA AXIAL SKELETON 03/05/2024 7:37 AM EST documented in this encounter Results * XR DEXA AXIAL SKELETON (03/05/2024 7:37 AM EST) Anatomical Region Laterality Modality Other 03/05/2024 7:37 AM EST Narrative 03/05/2024 7:39 AM EST [address] [address] XRay Report Signed Patient: Naima Hernandez MR#: [id number] : 1970 Acct:[id number] Age/Sex: 53 / F ADM Date: 03/05/24 Loc: MAMMO Attending Dr: ENRIQUE ALBA Ordering Physician: ENRIQUE ALBA Date of Service: 03/05/24 Procedure(s): XR DEXA axial skeleton Accession Number(s): [id number] cc: ENRIQUE ALBA [address] [address] Patient Name: NAIMA HERNANDEZ MRN: [id number] date: 1970 Sex: F Assigned Patient Location: MAMMO Current Patient Location: MAMMO Accession/Order Number: [id number] Exam Date: 03/05/2024 07:00 Report Date: 03/05/2024 [...] prevention and treatment of osteoporosis. Osteoporos Int. 2021;33(10):0805-7844. doi: 10.1007/l97335-181-63043-b. Epub 2021Aug 23. Erratum in: Osteoporos Int. 2021Nov 22;: PMID: [id number]; PMCID: [id number]. Electronically authenticated by: VIKAS NEGRON Date: 03/05/2024 07:37 Dictated By: Vikas Negron M.D. Signed By: 03/05/24 0739 DD/ TD/TT: Retail Store Assistant: Procedure Note Radiology, Radiologist, - 03/05/[address] [address] XRay Report Signed Patient: Naima Hernandez MMR#: [id number] : 1970Acct:[id number] Age/Sex: 53 / FADM Date: 03/05/24 Loc: MAMMO Attending Dr: ENRIQUE ALBA Ordering Physician: ENRIQUE ALBA Date of Service: 03/05/24 Procedure(s): XR DEXA axial skeleton Accession Number(s): [id number] cc: ENRIQUE ALBA [address] [address] Patient Name: NAIMA HERNANDEZ MRN: [id number] date: 1970 Sex: F Assigned Patient Location: MAMMO Current Patient Location: [facility] Accession/Order Number: [id number] Exam Date: 03/05/2024 07:00 Report Date: 03/05/2024 [...] 10-year hip fracture risk >= 3% or [id number] major osteoporosis-related fracture risk >= 20% (i.e., [...] to prevention and treatment of osteoporosis.Osteoporos Int. 2021;33(10):1808-0050. doi: 10.1007/t36567-838-87446-y. Ep. Erratum in: Osteoporos Int. 2021Nov 22;: PMID: [id number]; PMCID: [id number]. Electronically authenticated by: VIKAS NEGRON Date: 03/05/2024 07:37 Dictated By: Vikas Negron M.D. Signed By:03/05/2439 DD/ TD/TT: Retail Store Assistant: Enrique Alba MD [facility] Final Resu lt documented in this encounter Visit Diagnoses Not on filedocumented in this encounter Care Teams Fire Control System Installer Relationship Specialty Start Date End Date Enrique Alba MD PCP - General Family Medicine 09/16/22 documented as of this encounter
--- OUTSIDE RECORDS SUMMARY | 2024-10-30 08:12 | XMS_ITS | Encounter Summary ---
Author Organization [facility] Address [address] [place] [address] Care Team Providers Care Branch Examiner Name Role Phone Enrique Burgos MD Primary Care Provider Encounter Details Date Type Department Care Team (Late st Contact Info) Description 11/03/2023 Orders Only [facility] [address] [place] [address] Enrique Burgos MD [address] [facility] [address] [place] [address] Social History Tobacco Use Types Packs/Day Years [...] How often do you attend chur or pentecostal services? More than 4 times per year [...] Recorded Patient Health Questionnaire-2 Score 0 [facility] Answer Date [...] place to sleep or slept in a [facility] (including now)? No 09/18/2022 Education Answer Date [...] EST Office Visit [facility] [address] [facility] [place] [address] Janey Savage PA [address] [facility] [place] [address] documented as of this encounter Visit Diagnoses Not on filedocumented in this encounter Care Teams Branch Examiner Relationship Specialty Start Date End Date Enrique Burgos MD PCP - General Family Medicine 09/16/22 documented as of this encounter
--- OUTSIDE RECORDS SUMMARY | 2024-10-30 08:12 | XMS_ITS | CCD ---
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 Name Role Phone ANJALI, DR BLAKELY Admitting [...] MONTRELL [employer] Unavailable Ernie Fuller Unavailable [phone] Enrique Alba Primary Care Unavailable Ernie Fuller Attending UnavailErnie Moreno Admitting Unavailabl Ben Gooden Unavailable Pollo Florest E Primary Care Provider UnavailTaylor Nava RD Unavailable [phone] RADHA ABDUL Referring UnavailTAYLOR Nava Attending Unavailable ELYSE FLORESGHT E Primary Care Unavailable RADHA ABDUL Attending Unavailabl MIKE Rogers Referring Unavailable ELYSE FLORESGHT E Primary Care Unavailable MARIAJOSE ASHER Attending Unavailable ELYSE FLORESGHT E Primary Care Unavailable Enrique Alba MD Primary Care Provider Enrique Alba MD Primary Care Provider LUIS EDUARDO LEVINE Attending Unavailable LUIS EDUARDO LEVNIE Referring Unavailable ENRIQUE ALBA Attending Unavailable ENRIQUE ALBA Attending Unavailable ENRIQUE ALBA Attending Unavailable ENRIQUE ALBA Attending Unavailable ENRIQUE ALBA Attending Unavailable JANEY DAVIS Attending Unavailable ENRIQUE ALBA Attending Unavailable BEATRIZ RANKIN Attending Unavailable BEATRIZ RANKIN Referring Unavailable Allergies Allergy Classification Reported Allergen(s) Allergy Type Date of Onset Reaction(s) Facility (20 sources) DULoxetine Drug Allergy 2 [facility] (20 sources) metFORMIN Drug Allergy 4 GI intolerance [facility] Work Phone: Medications Current Medications Medication Drug Class(es) Dates Sig (Normalized) Sig (Original) [id number] 200 actuat albuterol 0.09 mg/actuat metered dose [...] (Triglide) 160 MG tablet Indications: Mixed dyslipidemia Take 1 tablet (160 mg) by [...] 08/20/2024 Active gabapentin 300 mg oral capsule (18 sources) Anti-epileptic Agent Start: 08-02-2024 End: 01-29-2025 [...] unspecified] Onset: 09-17-2022 09-17-2022 Chronic Menopausal disorders (12 sources) Menopausal syndrome; 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: [Menopausal and female climacteric states] Onset: 05-12-2024 02-26-2024 Chronic Miscellaneous mental health disorders (20 sources) [...] Onset: 09-17-2022 09-17-2022 Episodic Residual codes; unclassified (10 sources) Flushing; 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: [Flushing] Onset: 05-12-2024 05-12-2024 Episodic Thyroid disorders (20 sources) Sick-euthyroid syndrome; 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: [Sick-euthyroid syndrome] Onset: 09-17-2022 09-17-2022 Episodic Results Test Name Value Interpretation Reference Range Facility ALL CBC WITH AUTO DIFFon BASOPHILS ABSOLUTE AUTO 0 [facility] Basophils/100 WBC (Bld) 0.6 % 0.2 - 2.0 % [facility] Eosinophils/100 WBC (Bld) 1.8 % 0.9 - 7.0 % [facility] Erythrocyte distribution width (RBC) [Ratio] 13.7 % 11.0 - 15.0 % [facility] Hematocrit (Bld) [Volume fraction] 43.9 % 36.0 - 48.0 % [facility] Hemoglobin (Bld) [Mass/Vol] 14.8 g/dL 12.0 - 16.0 g/dL [facility] IMMATURE GRANULOCYTES ABS AUTO 0.02 [facility] Immature granulocytes/100 WBC (Bld) 0.4 % 0.0 - 0.5 % [facility] LYMPHOCYTES ABSOLUTE AUTO 1.4 [facility] Lymphocytes/100 WBC (Bld) 26.3 % 20.5 - 60.0 % [facility] MCH (RBC) [Entitic mass] 28.1 pg 26.7 - 34.0 pg [facility] MCHC (RBC) [Mass/Vol] 33.7 g/dL 29.9 - 35.2 g/dL [facility] MCV (RBC) [Entitic vol] 83.3 fL 81.0 - 99.0 fL [facility] MONOCYTES ABSOLUTE AUTO 0.3 [facility] Monocytes/100 WBC (Bld) 6.2 % 1.7 - 12.0 % [facility] NEUTROPHILS ABSOLUTE AUTO 3.3 [facility] Neutrophils/100 WBC (Bld) 64.7 % 43.0 - 75.0 % [facility] Platelet mean volume (Bld) [Entitic vol] 10 fL 9.5 - 13.5 fL [facility] EO # 0.1 [facility] PLT 199 [facility] RBC 5.27 [facility] WBC 5.1 [facility] XR Foot - left 3 [employer] EXAM: [...] DA PORTER MD at 16-Jun-2024 09:39:44 AM [facility] IMAGING Da Porter MD - 06/16/2024 EXAM: [...] DA PORTER MD at 16-Jun-2024 09:39:44 AM [employer] [facility] [employer] XR Foot - left 3 ViewsOrdere d By: Da Porter on 06-16-2024 [facility] [employer] Work Phone: XR FOOT 3+ VIEWS LEFTon [...] DA PORTER MD at 16-Jun-2024 09:39:44 AM [employer] Normal Not Available XR Foot - left 3 [facility] Radiology Study observation (narrative) [facility] [employer] XR Knee - left 3 [employer] XR [...] signed and approved by the interpreting Radiologist. Messi Donohue MD - 04/19/2024 XR KNEE 3 VIEWS [...] signed and approved by the interpreting Radiologist. [facility] XR Knee - left 3 ViewsOrdere d By: Messi Carballo on 04-19-2024 [facility] Work Phone: XR KNEE 3 VIEWS LEFTon [...] left 3 [facility] Radiology Study observation (narrative) [facility] IGP,APTIMA HPV,AGE GDLNon AGE GDLN ACOG TESTING Note . [facility] Comment on above: TESTS RESULT FLAG UN ITS REF RANGE LAB Clinician Provided Cytology Information Source.............Cervix;Endocervix No. of containers..01 ThinPrep Vial Age Algo ACOG Annabelle... FLAG LEGEND: L-Low Normal,H-High Normal,LL-Alert Low,HH-Alert High <-Panic Low,>-Panic High,A-Abnormal,AA-Critical Abnormal Performed at: 01 =[address] [address] Grace Ramos MD, HPV APTIMA Negative Negative [facility] Comment on above: This nucleic acid am plification test detects fourteen high- risk HPV types (16,18,31,33,35,39,45,51,52,56,58,59,66,68) without differentiation. Performed at: =[address] [id number] Pit Shoveler: Grace Ramos MD, Phone: [phone] Performed at: [address] [id number] Pit Shoveler: Grace Ramos MD, Phone: [phone] IGP, APTIMA HPV, RFX 16/18,45 Note . [facility] Comment on above: TESTS RESULT FLAG UN ITS REF RANGE LAB DIAGNOSIS: 02 NEGATIVE FOR INTRAEPITHELIAL LESION OR MALIGNANCY. Specimen adequacy: 02 Satisfactory for evaluation. Endocervical and/or squamous metaplastic cells (endocervical component) are present. Performed by: Nathalia Ellis, Arboriculture Teacher (ASCP) . 02 Note: Note 02 The [...] <-Panic Low,>-Panic High,A-Abnormal,AA-Critical Abnormal Performed at: 02 [facility] [address] [place] [address] Grace Ramos MD, BRUSH-SPATULA CERVIX ENDOCERVIX [facility] ALL LIPID PROFILE (FASTING)o n 03-05-2024 CHOL HDL RATIO 4.5 [facility] Comment on above: 3.3 - 4.4 LOW RISK 4.4 - 7.1 AVERAGE RISK 7.1 - 11.0 MODERATE RISK >11.0 HIGH RISK Cholesterol [Mass/Vol] 232 mg/dL High NINF - 200 mg/dL [facility] Cholesterol in HDL [Mass/Vol] 51 mg/dL 40 - 60 mg/dL [facility] Comment on above: > or =60 mg/dl - LOW CARDIOVASCULAR RISK <40 mg/dl - HIGH CARDIOVASCULAR RISK Magnesium [Mass/Vol] 122 mg/dL [facility] Comment on above: <100 mg/dl OPTIMAL 100-129 mg/dl NEAR OR ABOVE OPTIMAL 130-159 mg/dl BORDERLINE HIGH 160-189 mg/dl HIGH >190 mg/dl VERY HIGH Magnesium [Mass/Vol] 59.2 mg/dL [facility] Triglyceride [Mass/Vol] 296 mg/dL High NINF - 150 mg/dL [facility] CMP (CMP) (FOR REMOTE FH C USE)on 03-05-2024 Albumin [Mass/Vol] 3.9 g/dL 3.4 - 5.0 g/dL [facility] ALBUMIN GLOBULIN RATIO 1.1 [facility] ALP [Catalytic activity/Vol] 102 U/L 46 - 116 U/L [facility] ALT [Catalytic activity/Vol] 153 U/L High 14 - 59 U/L [facility] Anion gap [Moles/Vol] 14.3 mmol/L [facility] AST [Catalytic activity/Vol] 98 U/L High 15 - 37 U/L [facility] Bilirubin [Mass/Vol] 0.4 mg/dL 0.2 - 1.0 mg/dL [facility] Calcium [Mass/Vol] 8.4 mg/dL Low 8.5 - 10. 1 mg/dL [facility] Chloride [Moles/Vol] 105 mmol/L 98 - 107 mmol/L [facility] CO2 [Moles/Vol] 29.7 mmol/L 21.0 - 32.0 mmol/L [facility] Creatinine [Mass/Vol] 0.98 mg/dL 0.55 - 1.02 mg/dL [facility] GFR/1.73 sq M.predicted CKD-EPI (S/P/Bld) [Vol rate/Area] >60 >=60 mL/min/1.73m 2 [facility] Globulin (S) [Mass/Vol] 3.6 g/dL [facility] Glucose [Mass/Vol] 112 mg/dL High 74 - 106 mg/dL [facility] Potassium [Moles/Vol] 4 mmol/L 3.5 - 5.1 mmol/L [facility] Protein [Mass/Vol] 7.5 g/dL 6.4 - 8.2 g/dL [facility] Sodium [Moles/Vol] 145 mmol/L 136 - 145 mmol/L [facility] TBH EGFR-NON AF TAIWANESE 59 Low >=60 mL/min/1.73m 2 [facility] Urea nitrogen [Mass/Vol] 13 mg/dL 7.0 - 18.0 mg/dL [facility] Urea nitrogen/Creatinine [Mass ratio] 13.3 mg/mg [facility] No Panel Informationon 03-05 Interpretation and review of laboratory results Abnormal [facility] CNOVon 10-30-2022 CNOV Office Visit (GASTAV ) NAIMA RIOS ([id number]) 1970 F Date Time Provider Department 10/30/22 1:00 PM RADHA ABDUL During your visit today, we recorded the following information about you: Weight Height 120.2 kg 1.6 m Radha Richey MD 10/30/2022 2:34 PM Signed [facility] Mindy Richey MD, FACG, FAASLD Director, [facility] Hep[facility] Consult Requested By: Mike Saeed [address] [facility] [address] for evaluation of her fatty liver .. 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 Referring Provider: MIKE SAEED [[id number]] Allergies As of Date: 10/30/2022 (No Known Allergies) Date Reviewed: 10/30/2022 Reviewed by: RIVER Stuart - Fully Assessed Reason for Visit: New Patient [172] Cmt: Consult for fatty liver Primary Visit Diagnosis:Fatty liver [K76.0] Other Visit Diagnosis:Class 3 severe obesity due to excess calories in adult, unspecified BMI, unspecified whether serious comorbidity present (HCC) [E66.01] Order(s):CELIAC SCREEN WITH REFLEX [SQCELSCR] Order #: [id number] FUTURE HEPATITIS A ANTIBODY, IGG [SQAHAVG] Order #: [id number] FUTURE (more content not included)... Normal [facility] CNOVon 08-01-2022 CNOV Office Visit (VIDAL ) NAIMA RIOS ([id number]) 1970 F Date Time Provider Department 08/01/22 3:00 PM MARIAJOSE ASHER During your visit today, we recorded the following information about you: Pulse Blood pressure 101/minute 177/81 Mariajose Asher MD 08/01/2022 3:52 PM Signed Rheumatology Outpatient Clinic Date of Service: 08/01/2022 Patient: Naima Rios Medical Record: [id number] Primary Care Physician: Zeferino Flores Last Rheumatology visit: None at [facility] History of Present Illness Naima Rios is [...] 46 % Physical Function Percentile 21 % [place] Activities of Daily Living 07/29/2022 7:33 [...] , low transverse COLONOSCOP W/ OR W/O [facility] SPEC Colonoscopy EGD EXTRACTION, ERUPTED TOOTH OR EXPOSED ROOT (ELEVATION AND/OR FORCEPS REMOVAL) KNEE SCOPE,MENISECTOMY,MED OR LAT Bilateral Family History No family history on file. Social History Social History Tobacco Use Smoking status: Never Smokeless tobacco: Never Substance Use Topics Alcohol use: No Drug use: No C (more content not included)... Normal [facility] Ammoniaon 02-20-2022 Ammonia (P) [Moles/Vol] 19 umol/L Normal 11-35 [facility] Comment on above: Order Comment: Reaso n for Exam Elevated liver enzymes;Fatty liver Result Comment: PERF ORMED BY: [place] [address] PATHOLOGIST BIODIESEL OPERATIONS MANAGER DAGMAR CANO M.D. Performed By: #### C BC, CMP, AMM, ADAL, PT, LIPID #### [address] Complete Blood Count Auto Di ffon 02-20-2022 Basophils (Bld) [#/Vol] 0.0 10*3/uL Normal 0.0-0.2 [facility] Comment on above: Order Comment: Reaso n for Exam Elevated liver enzymes;Fatty liver Result Comment: PERF ORMED BY: [place] [address] PATHOLOGIST BIODIESEL OPERATIONS MANAGER DAGMAR CANO M.D. Performed By: #### C BC, CMP, AMM, ADAL, PT, LIPID #### [address] Basophils/100 WBC (Bld) 0.4 % Normal . [facility] Comment on above: Order Comment: Reaso n for Exam Elevated liver enzymes;Fatty liver Performed By: #### C BC, CMP, AMM, ADAL, PT, LIPID #### [facility] [address] Eosinophils (Bld) [#/Vol] 0.1 10*3/uL Normal 0.0-0.45 [facility] Comment on above: Order Comment: Reaso n for Exam Elevated liver enzymes;Fatty liver Performed By: #### C BC, CMP, AMM, ADAL, PT, LIPID #### [address] Eosinophils/100 WBC (Bld) 1.1 % Normal . [facility] Comment on above: Order Comment: Reaso n for Exam Elevated liver enzymes;Fatty liver Performed By: #### C BC, CMP, AMM, ADAL, PT, LIPID #### [address] Erythrocyte distribution width (RBC) [Ratio] 14.6 % Normal 11.9-15.3 [facility] Comment on above: Order Comment: Reaso n for Exam Elevated liver enzymes;Fatty liver Performed By: #### C BC, CMP, AMM, ADAL, PT, LIPID #### [address] Hematocrit (Bld) [Volume fraction] 45.3 % Normal 34.0-46.4 [facility] Comment on above: Order Comment: Reaso n for Exam Elevated liver enzymes;Fatty liver Performed By: #### C BC, CMP, AMM, ADAL, PT, LIPID #### [address] Hemoglobin (Bld) [Mass/Vol] 15.2 g/dL Normal 11.8-15.4 [facility] Comment on above: Order Comment: Reaso n for Exam Elevated liver enzymes;Fatty liver Performed By: #### C BC, CMP, AMM, ADAL, PT, LIPID #### [address] Lymphocytes (Bld) [#/Vol] 1.6 10*3/uL Normal 1.00-4.8 [facility] Comment on above: Order Comment: Reaso n for Exam Elevated liver enzymes;Fatty liver Performed By: #### C BC, CMP, AMM, ADAL, PT, LIPID #### [address] Lymphocytes/100 WBC (Bld) 26.9 % Normal . [facility] Comment on above: Order Comment: Reaso n for Exam Elevated liver enzymes;Fatty liver Performed By: #### C BC, CMP, AMM, ADAL, PT, LIPID #### [address] MCH (RBC) [Entitic mass] 27.3 pg Normal 24.7-34.3 [facility] Comment on above: Order Comment: Reaso n for Exam Elevated liver enzymes;Fatty liver Performed By: #### C BC, CMP, AMM, ADAL, PT, LIPID #### [address] MCV (RBC) [Entitic vol] 81.5 fL Normal 80-100 [facility] Comment on above: Order Comment: Reaso n for Exam Elevated liver enzymes;Fatty liver Performed By: #### C BC, CMP, AMM, ADAL, PT, LIPID #### [address] Mean Corpuscular HGB Conc 33.5 g/dL Normal 32.0-35.0 [facility] Comment on above: Order Comment: Reaso n for Exam Elevated liver enzymes;Fatty liver Performed By: #### C BC, CMP, AMM, ADAL, PT, LIPID #### [address] Monocytes (Bld) [#/Vol] 0.4 10*3/uL Normal 0.0-0.8 [facility] Comment on above: Order Comment: Reaso n for Exam Elevated liver enzymes;Fatty liver Performed By: #### C BC, CMP, AMM, ADAL, PT, LIPID #### [facility] [address] [place] [address] [place] Monocytes/100 WBC (Bld) 6.3 % Normal . [facility] Comment on above: Order Comment: Reaso n for Exam Elevated liver enzymes;Fatty liver Performed By: #### C BC, CMP, AMM, ADAL, PT, LIPID #### [facility] [address] [place] [address] [place] Neutrophils (Bld) [#/Vol] 3.9 10*3/uL Normal 1.8-7.7 [facility] Comment on above: Order Comment: Reaso n for Exam Elevated liver enzymes;Fatty liver Performed By: #### C BC, CMP, AMM, ADAL, PT, LIPID #### [facility] [address] [place] [address] [place] Neutrophils/100 WBC (Bld) 65.3 % Normal . [facility] Comment on above: Order Comment: Reaso n for Exam Elevated liver enzymes;Fatty liver Performed By: #### C BC, CMP, AMM, ADAL, PT, LIPID #### [facility] [address] [place] [address] [place] Nucleated RBC/100 WBC (Bld) [Ratio] 0.2 % Normal 0-0.5 [facility] Comment on above: Order Comment: Reaso n for Exam Elevated liver enzymes;Fatty liver Performed By: #### C BC, CMP, AMM, ADAL, PT, LIPID #### [facility] [address] [place] [address] [place] Platelet mean volume (Bld) [Entitic vol] 8.2 fL Normal 6.3-10.7 [facility] Comment on above: Order Comment: Reaso n for Exam Elevated liver enzymes;Fatty liver Performed By: #### C BC, CMP, AMM, ADAL, PT, LIPID #### [facility] [address] [place] [address] [place] Platelets (Bld) [#/Vol] 282 10*3/uL Normal 150-450 [facility] Comment on above: Order Comment: Reaso n for Exam Elevated liver enzymes;Fatty liver Performed By: #### C BC, CMP, AMM, ADAL, PT, LIPID #### [facility] [address] RBC (Bld) [#/Vol] 5.56 10*6/uL High 3.60-5.00 [facility] Comment on above: Order Comment: Reaso n for Exam Elevated liver enzymes;Fatty liver Performed By: #### C BC, CMP, AMM, ADAL, PT, LIPID #### [facility] [address] WBC (Bld) [#/Vol] 5.9 10*3/uL Normal 4.5-11.0 [facility] Comment on above: Order Comment: Reaso n for Exam Elevated liver enzymes;Fatty liver Performed By: #### C BC, CMP, AMM, ADAL, PT, LIPID #### [facility] [address] Comprehensive Metabolic Pane grace 02-20-2022 Albumin [Mass/Vol] 4.4 g/dL Normal 3.2-5.5 [facility] Comment on above: Order Comment: Reaso n for Exam Elevated liver enzymes;Fatty liver Performed By: #### C BC, CMP, AMM, ADAL, PT, LIPID #### [facility] [address] Albumin/Globulin [Mass ratio] 1.6 {ratio} Normal [facility] Comment on above: Order Comment: Reaso n for Exam Elevated liver enzymes;Fatty liver Performed By: #### C BC, CMP, AMM, ADAL, PT, LIPID #### [facility] [address] ALP [Catalytic activity/Vol] 75 U/L Normal 32-92 [facility] Comment on above: Order Comment: Reaso n for Exam Elevated liver enzymes;Fatty liver Performed By: #### C BC, CMP, AMM, ADAL, PT, LIPID #### [facility] [address] [place] [id number] [place] ALT [Catalytic activity/Vol] 71 U/L High 10-60 [facility] Comment on above: Order Comment: Reaso n for Exam Elevated liver enzymes;Fatty liver Performed By: #### C BC, CMP, AMM, ADAL, PT, LIPID #### [facility] [address] [place] [id number] [place] Anion gap [Moles/Vol] 11.4 mmol/L Normal 6.0-15.0 [facility] Comment on above: Order Comment: Reaso n for Exam Elevated liver enzymes;Fatty liver Performed By: #### C BC, CMP, AMM, ADAL, PT, LIPID #### [facility] [address] AST [Catalytic activity/Vol] 51 U/L High 10-42 [facility] Comment on above: Order Comment: Reaso n for Exam Elevated liver enzymes;Fatty liver Performed By: #### C BC, CMP, AMM, ADAL, PT, LIPID #### [facility] [address] [place] [address] [place] Bilirubin [Mass/Vol] 0.7 mg/dL Normal 0.3-1.2 [facility] Comment on above: Order Comment: Reaso n for Exam Elevated liver enzymes;Fatty liver Performed By: #### C BC, CMP, AMM, ADAL, PT, LIPID #### [facility] [address] [place] [address] [place] Calcium [Mass/Vol] 9.3 mg/dL Normal 8.2-10.2 [facility] Comment on above: Order Comment: Reaso n for Exam Elevated liver enzymes;Fatty liver Performed By: #### C BC, CMP, AMM, ADAL, PT, LIPID #### [facility] [address] [place] [id number] [place] Chloride [Moles/Vol] 102 mmol/L Normal 95-114 [facility] Comment on above: Order Comment: Reaso n for Exam Elevated liver enzymes;Fatty liver Performed By: #### C BC, CMP, AMM, ADAL, PT, LIPID #### [facility] [address] [place] [address] CO2 [Moles/Vol] 25.6 mmol/L Normal 22.0-30.0 [facility] Comment on above: Order Comment: Reaso n for Exam Elevated liver enzymes;Fatty liver Performed By: #### C BC, CMP, AMM, ADAL, PT, LIPID #### [address] Creatinine [Mass/Vol] 0.78 mg/dL Normal 0.44-1.03 [facility] Comment on above: Order Comment: Reaso n for Exam Elevated liver enzymes;Fatty liver Performed By: #### C BC, CMP, AMM, ADAL, PT, LIPID #### [address] Estimated GFR ( Daphne > 60 [facility] Comment on above: Order Comment: Reaso n for Exam Elevated liver enzymes;Fatty liver Result Comment: GFR estimated reference range: According to KDOQI guidelines, <60 ml/min/1.73m2 is sufficient to diagnose a patient with chronic kidney disease. Performed By: #### C BC, CMP, AMM, ADAL, PT, LIPID #### [facility] [address] [place] [address] Estimated GFR (Non- Am > 60 Normal [facility] Comment on above: Order Comment: Reaso n for Exam Elevated liver enzymes;Fatty liver Performed By: #### C BC, CMP, AMM, ADAL, PT, LIPID #### [facility] [address] [place] [address] Globulin (S) [Mass/Vol] 2.7 g/dL Normal [facility] Comment on above: Order Comment: Reaso n for Exam Elevated liver enzymes;Fatty liver Performed By: #### C BC, CMP, AMM, ADAL, PT, LIPID #### [address] Glucose [Mass/Vol] 96 mg/dL Normal 70-100 [facility] Comment on above: Order Comment: Reaso n for Exam Elevated liver enzymes;Fatty liver Result Comment: Varney om Glucose Reference Range is dependent on time and content of last meal. Glucose of more than 200 mg/dL in a nonstressed, ambulatory subject supports the diagnosis of Diabetes Mellitus. ADA recommended reference range Performed By: #### C BC, CMP, AMM, ADAL, PT, LIPID #### [facility] [address] Potassium [Moles/Vol] 4.0 mmol/L Normal 3.5-5.1 [facility] Comment on above: Order Comment: Reaso n for Exam Elevated liver enzymes;Fatty liver Performed By: #### C BC, CMP, AMM, ADAL, PT, LIPID #### [facility] [address] Protein [Mass/Vol] 7.1 g/dL Normal 6.1-7.9 [facility] Comment on above: Order Comment: Reaso n for Exam Elevated liver enzymes;Fatty liver Performed By: #### C BC, CMP, AMM, ADAL, PT, LIPID #### [facility] [address] Sodium [Moles/Vol] 135 mmol/L Low 136-146 [facility] Comment on above: Order Comment: Reaso n for Exam Elevated liver enzymes;Fatty liver Performed By: #### C BC, CMP, AMM, ADAL, PT, LIPID #### [facility] [address] Urea nitrogen [Mass/Vol] 11 mg/dL Normal 9-23 [facility] Comment on above: Order Comment: Reaso n for Exam Elevated liver enzymes;Fatty liver Performed By: #### C BC, CMP, AMM, ADAL, PT, LIPID #### [facility] [address] [place] [id number] [facility] Ferritinon 02-20-2022 Ferritin [Mass/Vol] 127.6 ng/mL Normal 11-306.8 [facility] Comment on above: Order Comment: Reaso n for Exam Elevated liver enzymes;Fatty liver Performed By: #### C BC, CMP, AMM, ADAL, PT, LIPID #### [facility] [address] Lipid Panelon 02-20-2022 Cholesterol [Mass/Vol] 226 mg/dL High 140-200 [facility] Comment on above: Order Comment: Reaso n for Exam Elevated liver enzymes;Fatty liver Result Comment: Chol less than 200 mg/dl low risk Chol 201-239 mg/dl borderline risk Chol 240 mg/dl and greater high risk Performed By: #### C BC, CMP, AMM, ADAL, PT, LIPID #### [facility] [address] [place] [address] [place] Cholesterol in HDL [Mass/Vol] 50 mg/dL Normal 35-85 [facility] Comment on above: Order Comment: Reaso n for Exam Elevated liver enzymes;Fatty liver Result Comment: HDL CHOL ATP-III CLASSIFICATION Cardiovascular Risk HDL > or equal to 60 mg/dL LOW HDL < 40 mg/dL HIGH Performed By: #### C BC, CMP, AMM, ADAL, PT, LIPID #### [facility] [address] [address] Cholesterol.total/C holesterol in HDL [Mass ratio] 4.5 {ratio} Normal <5.0 [facility] Comment on above: Order Comment: Reaso n for Exam Elevated liver enzymes;Fatty liver Result Comment: PERF ORMED BY: [place] [address] PATHOLOGIST BIODIESEL OPERATIONS MANAGER DAGMAR CANO M.D. Performed By: #### C BC, CMP, AMM, ADAL, PT, LIPID #### [facility] [address] LDL Cholesterol,Calcula john paul 138 mg/dL High 0-100 [facility] Comment on above: Order Comment: Reaso n for Exam Elevated liver enzymes;Fatty liver Result Comment: LDL ATP III CLASSIFICATION LDL less than 100 mg/dL Optimal LDL 100-129 mg/dL Near or above optimal LDL 130-159 mg/dL Borderline high LDL 160-189 mg/dL High LDL greater than 189 mg/dL Very high Performed By: #### C BC, CMP, AMM, ADAL, PT, LIPID #### [facility] [address] [place] [address] [place] Triglyceride w/Reflex 188 mg/dL High 35-149 [facility] Comment on above: Order Comment: Reaso n [...] BC, CMP, AMM, ADAL, PT, LIPID #### [facility] [address] [place] [address] VLDL CHOLESTEROL 37 mg/dL Normal [facility] Comment on above: Order Comment: Reaso n for Exam Elevated liver enzymes;Fatty liver Performed By: #### C BC, CMP, AMM, ADAL, PT, LIPID #### [address] Prothrombin Time INRon 02-20 INR Coag (PPP) [Relative time] 1.1 {INR} Normal [facility] Comment on above: Order Comment: Reaso n [...] heart valves: 3 - 4.5 PERFORMED BY: [place] [address] PATHOLOGIST BIODIESEL OPERATIONS MANAGER DAGMAR CANO M.D. Performed By: #### C BC, CMP, AMM, ADAL, PT, LIPID #### [address] PT Coag (PPP) [Time] 12.1 s Normal 9.0-12.9 [facility] Comment on above: Order Comment: Reaso n for Exam Elevated liver enzymes;Fatty liver Performed By: #### C BC, CMP, AMM, ADAL, PT, LIPID #### [address] MG MAMM SCREEN 3D ENMANUEL CADon 11-05-2021 MG MAMM SCREEN 3D ENMANUEL CAD Patient: NAIMA RIOS Exam Date: 11/05/2021 : 1970 Gender:F Ordering : DR OSCAR NAVARRO . Admission #: [id number] Family : Order #: [id number] CLICK HERE TO VIEW EXAM RADIOLOGY REPORT PROCEDURE: MAMMOGRAM SCREENING 3D BILATERAL CAD COMPARISON: MG MAMM SCREEN ENMANUEL W CAD, 05/14/2019. MAMMO ENMANUEL SCREEN, 07/12/2020. INDICATIONS: Screening mammography Calculator Name NCI Breast Cancer Risk Assessment Tool 5 Year Breast Cancer Risk 1.60% Lifetime Breast Cancer Risk 14.00% Personal Breast Cancer No Personal Ovarian Cancer No Treatments None Family Cancers None LOCATION: [facility] BREAST COMPOSITION: Scattered areas fibroglandular density. [...] Romeo MD on 11/05/2021 at 10:43 Normal [facility] PAP ACOG PANEL 2: 30 to 65on 11-05-2021 . . Normal [facility] Comment on above: Result Comment: Perf ormed at: WB Performed By: #### [id number] #### [facility] [address] [address] [address] Peg Shelby Age Gdln ACOG Testing 30-65 Normal [facility] Comment on above: Performed By: #### [id number] #### [facility] [address] [address] [address] Peg Shelby DIAGNOSIS: Comment Normal [facility] Comment on above: Result Comment: NEGA TIVE FOR INTRAEPITHELIAL LESION OR MALIGNANCY. Performed at: WB Performed By: #### [id number] #### [facility] [address] [address] [address] Peg Shelby HPV Aptima Negative Normal Negative [facility] Comment on above: Result Comment: This nucleic acid amplification test detects fourteen high-risk HPV types (16,18,31,33,35,39,45,51,52,56,58,59,66,68) without differentiation. Performed at: =G Performed By: #### [id number] #### [facility] [address] [place] [address] Dr. Peg Shelby Methodology: Comment Normal [facility] Comment on above: Result Comment: This liquid based ThinPrep(R) pap test was screened with the use of an image guided system. Performed at: WB Performed By: #### [id number] #### [facility] [address] [place] [address] Dr. Peg Shelby Note: Comment Normal [facility] Comment on above: Result Comment: The Pap smear is a screening test designed to aid in the detection of premalignant and malignant conditions of the uterine cervix. It is not a diagnostic procedure and should not be used as the sole means of detecting cervical cancer. Both false-positive and false-negative reports do occur. . Performed at: WB Performed By: #### [id number] #### [facility] [address] [place] [address] Dr. Peg Shelby Performed by: Comment Normal [facility] Comment on above: Result Comment: Janey Gonzalez, Arboriculture Teacher (ASCP) Performed at: WB Performed By: #### [id number] #### [facility] [address] [place] [address] Dr. Peg Shelby Specimen adequacy: Comment Normal [facility] Comment on above: Result Comment: Sati sfactory for evaluation. Endocervical and/or squamous metaplastic cells (endocervical component) are present. Performed at: WB Performed By: #### 4 [id number] #### [facility] [address] [place] [address] Dr. Peg Shelby VAGINITIS/VAGINOSIS DNA PROB Saul 11-02-2021 Sandhya species Negative Normal Negative [facility] Comment on above: Performed By: #### V AGINT #### [facility] [address] [place], [place] [id number] Dr. Peg Shelby Gardnerella vaginalis Positive Abnormal Negative [facility] Comment on above: Performed By: #### V AGINT #### [facility] [address] [address] [address] Peg Shelby Trichomonas vaginalis Negative Normal Negative [facility] Comment on above: Performed By: #### V AGINT #### [facility] [address] [address] [address] Peg Shelby US SINGLE QUAD RT [...] by: MONTRELL WU Date: 2021-10-16 07:39 Normal [facility] LIPID PROFILEon 10-11-2021 CHOL-HDL RATIO NORM SEE BELOW Normal [facility] Comment on above: Result Comment: 3.3 - 4.4 LOW RISK 4.4 - 7.1 AVERAGE RISK 7.1 - 11.0 MODERATE RISK >11.0 HIGH RISK Performed By: #### L IPID, CMP #### [facility] [address] [address] [address] Peg Shelby Cholesterol [Mass/Vol] 235 mg/dL Critically high <=[address] [facility] Comment on above: Performed By: #### L IPID, CMP #### [facility] [address] [address] [address] Peg Shelby Cholesterol in HDL [Mass/Vol] 42 mg/dL Normal 40-60 [facility] Comment on above: Performed By: #### L IPID, CMP #### [facility] [address] [address] [address] Peg Shelby Cholesterol in LDL [Mass/Vol] 139.8 mg/dL Normal [facility] Comment on above: Performed By: #### L IPID, CMP #### [facility] [address] [address] [address] Peg Shelby Cholesterol.total/C holesterol in HDL [Mass ratio] 5.6 {ratio} Normal [facility] Comment on above: Performed By: #### L IPID, CMP #### [facility] [address] [address] [address] Peg Shelby HDL NORMAL > or = 60 mg/dl - LO W CARDIOVASCULAR RISK <40 mg/dl - HIGH CARDIOVASCULAR RISK Normal [facility] Comment on above: Performed By: #### L IPID, CMP #### [facility] [address] [address] [address] Peg Shelby LDL CALC NORMAL SEE BELOW Normal [facility] Comment on above: Result Comment: <100 mg/dl OPTIMAL 100 - 129 mg/dl NEAR OR ABOVE OPTIMAL 130 - 159 mg/dl BORDERLINE HIGH 160 - 189 mg/dl HIGH >190 mg/dl VERY HIGH Performed By: #### L IPID, CMP #### [facility] [address] [place] [address] Dr. Peg Shelby Triglyceride [Mass/Vol] 266 mg/dL Critically high <=[address] [facility] Comment on above: Performed By: #### L IPID, CMP #### [facility] [address] [address] [address] Peg Shelby VLDL CALC 53.2 mg/dL Normal [facility] Comment on above: Performed By: #### L IPID, CMP #### [facility] [address] [place] [address] Dr. Peg Shelby PROF 14(COMP METB)on 022 Albumin [Mass/Vol] 3.9 g/dL Normal 3.4-5.0 [facility] Comment on above: Performed By: #### L IPID, CMP #### [facility] [address] [address] [address] Peg Shelby Albumin/Globulin [Mass ratio] 1.1 {ratio} Normal [facility] Comment on above: Performed By: #### L IPID, CMP #### [facility] [address] [address] [address] Peg Shelby ALP [Catalytic activity/Vol] 90 U/L Normal 46-116 [facility] Comment on above: Performed By: #### L IPID, CMP #### [facility] [address] [address] [address] Peg Shelby ALT [Catalytic activity/Vol] 131 U/L Critically high 14-59 [facility] Comment on above: Performed By: #### L IPID, CMP #### [facility] [address] [address] [address] Peg Shelby Anion gap [Moles/Vol] 10.7 mmol/L Normal [facility] Comment on above: Performed By: #### L IPID, CMP #### [facility] [address] [address] [address] Peg Shelby AST [Catalytic activity/Vol] 78 U/L Critically high 15-37 [facility] Comment on above: Performed By: #### L IPID, CMP #### [facility] [address] [address] [address] Peg Shelby Bilirubin [Mass/Vol] 0.5 mg/dL Normal 0.2-1.0 [facility] Comment on above: Performed By: #### L IPID, CMP #### [facility] [address] [address] [address] Peg Shelby Calcium [Mass/Vol] 8.6 mg/dL Normal 8.5-10.1 [facility] Comment on above: Performed By: #### L IPID, CMP #### [facility] [address] [address] [address] Peg Shelby Chloride [Moles/Vol] 104 mmol/L Normal 98-107 [facility] Comment on above: Performed By: #### L IPID, CMP #### [facility] [address] [address] [address] Peg Shelby CO2 [Moles/Vol] 29.5 mmol/L Normal 21.0-32.0 [facility] Comment on above: Performed By: #### L IPID, CMP #### [facility] [address] [address] [address] Peg Shelby Creatinine [Mass/Vol] 0.83 mg/dL Normal 0.55-1.02 [facility] Comment on above: Performed By: #### L IPID, CMP #### [facility] [address] [address] [address] Peg Shelby EGFR-AF TAIWANESE >60 Normal >=60 [facility] Comment on above: Performed By: #### L IPID, CMP #### [facility] [address] [address] [address] Peg Shelby EGFR-NON AF TAIWANESE >60 Normal >=60 [facility] Comment on above: Performed By: #### L IPID, CMP #### [facility] [address] [address] [address] Peg Shelby Globulin (S) [Mass/Vol] 3.4 g/dL Normal [facility] Comment on above: Performed By: #### L IPID, CMP #### [facility] [address] [address] [address] Peg Shelby Glucose [Mass/Vol] 108 mg/dL Critically high 74-106 [facility] Comment on above: Performed By: #### L IPID, CMP #### [facility] [address] [address] [address] Peg Shelby Potassium [Moles/Vol] 4.2 mmol/L Normal 3.5-5.1 [facility] Comment on above: Performed By: #### L IPID, CMP #### [facility] [address] [address] [address] Peg Shelby Protein [Mass/Vol] 7.3 g/dL Normal 6.4-8.2 [facility] Comment on above: Performed By: #### L IPID, CMP #### [facility] [address] [address] [address] Peg Shelby Sodium [Moles/Vol] 140 mmol/L Normal 136-145 [facility] Comment on above: Performed By: #### L IPID, CMP #### [facility] [address] [address] [address] Peg Shelby Urea nitrogen [Mass/Vol] 14.0 mg/dL Normal 7.0-18.0 [facility] Comment on above: Performed By: #### L IPID, CMP #### [facility] [address] [address] [address] Peg Shelby Urea nitrogen/Creatinine [Mass ratio] 16.9 mg/mg Normal [facility] Comment on above: Performed By: #### L IPID, CMP #### [facility] [address] [place] [address] Dr. Peg Shelby LIPID PROFILEon 03-20-2021 CHOL-HDL RATIO NORM SEE BELOW Normal [facility] Comment on above: Result Comment: 3.3 - 4.4 LOW RISK 4.4 - 7.1 AVERAGE RISK 7.1 - 11.0 MODERATE RISK >11.0 HIGH RISK Performed By: #### C MP, LIPID #### [facility] [address] [place] [address] Dr. Peg Shelby Cholesterol [Mass/Vol] 245 mg/dL Critically high <=200 [facility] Comment on above: Performed By: #### C MP, LIPID #### [facility] [address] [place] [address] Dr. Peg Shelby Cholesterol in HDL [Mass/Vol] 42 mg/dL Normal [facility] Comment on above: Performed By: #### C MP, LIPID #### [facility] [address] [place] [address] Dr. Peg Shelby Cholesterol in LDL [Mass/Vol] 144.8 mg/dL Normal [facility] Comment on above: Performed By: #### C MP, LIPID #### [facility] [address] [place] [address] Dr. Peg Shelby Cholesterol.total/C holesterol in HDL [Mass ratio] 5.8 {ratio} Normal [facility] Comment on above: Performed By: #### C MP, LIPID #### [facility] [address] [address] [address] Peg Sehlby HDL NORMAL > or = 60 mg/dl - LO W CARDIOVASCULAR RISK <40 mg/dl - HIGH CARDIOVASCULAR RISK Normal [facility] Comment on above: Performed By: #### C MP, LIPID #### [facility] [address] [address] [address] Peg Shelby LDL CALC NORMAL SEE BELOW Normal [facility] Comment on above: Result Comment: <100 mg/dl OPTIMAL 100 - 129 mg/dl NEAR OR ABOVE OPTIMAL 130 - 159 mg/dl BORDERLINE HIGH 160 - 189 mg/dl HIGH >190 mg/dl VERY HIGH Performed By: #### C MP, LIPID #### [facility] [address] [address] [address] Peg Shelby Triglyceride [Mass/Vol] 291 mg/dL Critically high <=150 [facility] Comment on above: Performed By: #### C MP, LIPID #### [facility] [address] [address] [address] Peg Shelby VLDL CALC 58.2 mg/dL Normal [facility] Comment on above: Performed By: #### C MP, LIPID #### [facility] [address] [address] [address] Peg Shelby PROF 14(COMP METB)on 021 Albumin [Mass/Vol] 4.0 g/dL Normal 3.5-5.0 [facility] Comment on above: Performed By: #### C MP, LIPID #### [facility] [address] [address] [address] Peg Shelby Albumin/Globulin [Mass ratio] 1.1 {ratio} Normal [facility] Comment on above: Performed By: #### C MP, LIPID #### [facility] [address] [address] [address] Peg Shelby ALP [Catalytic activity/Vol] 88 U/L Normal 38-126 [facility] Comment on above: Performed By: #### C MP, LIPID #### [facility] [address] [address] [address] Peg Shelby ALT [Catalytic activity/Vol] 112 U/L Critically high 9-52 [facility] Comment on above: Performed By: #### C MP, LIPID #### [facility] [address] [address] [address] Peg Shelby Anion gap [Moles/Vol] 12.5 mmol/L Normal [facility] Comment on above: Performed By: #### C MP, LIPID #### [facility] [address] [address] [address] Peg Shelby AST [Catalytic activity/Vol] 52 U/L Critically high 14-36 [facility] Comment on above: Performed By: #### C MP, LIPID #### [facility] [address] [address] [address] Peg Shelby Bilirubin [Mass/Vol] 0.5 mg/dL Normal 0.2-1.3 [facility] Comment on above: Performed By: #### C MP, LIPID #### [facility] [address] [address] [address] Peg Shelby Calcium [Mass/Vol] 8.9 mg/dL Normal 8.4-10.2 [facility] Comment on above: Performed By: #### C MP, LIPID #### [facility] [address] [address] [address] Peg Shelby Chloride [Moles/Vol] 104 mmol/L Normal 98-107 [facility] Comment on above: Performed By: #### C MP, LIPID #### [facility] [address] [address] [address] Peg Shelby CO2 [Moles/Vol] 30.5 mmol/L Critically high 22.0-30.0 [facility] Comment on above: Performed By: #### C MP, LIPID #### [facility] [address] [address] [address] Peg Shelby Creatinine [Mass/Vol] 0.82 mg/dL Normal 0.52-1.04 [facility] Comment on above: Performed By: #### C MP, LIPID #### [facility] [address] [address] [address] Peg Shelby EGFR-AF TAIWANESE >60 Normal >=60 [facility] Comment on above: Performed By: #### C MP, LIPID #### [facility] [address] [address] [address] Peg Shelby EGFR-NON AF TAIWANESE >60 Normal >=60 [facility] Comment on above: Performed By: #### C MP, LIPID #### [facility] [address] [address] [address] Peg Shelby Globulin (S) [Mass/Vol] 3.7 g/dL Normal [facility] Comment on above: Performed By: #### C MP, LIPID #### [facility] [address] [place] [address] Dr. Peg Shelby Glucose [Mass/Vol] 118 mg/dL Critically high 74-106 [facility] Comment on above: Performed By: #### C MP, LIPID #### [facility] [address] [address] [address] Peg Shelby Potassium [Moles/Vol] 4.0 mmol/L Normal 3.4-5.0 [facility] Comment on above: Performed By: #### C MP, LIPID #### [facility] [address] [address] [address] Peg Shelby Protein [Mass/Vol] 7.7 g/dL Normal 6.1-8.2 [facility] Comment on above: Performed By: #### C MP, LIPID #### [facility] [address] [address] [address] Peg Shelby Sodium [Moles/Vol] 143 mmol/L Normal 137-145 [facility] Comment on above: Performed By: #### C MP, LIPID #### [facility] [address] [address] [address] Peg Shelby Urea nitrogen [Mass/Vol] 13.0 mg/dL Normal 7.0-17.0 [facility] Comment on above: Performed By: #### C MP, LIPID #### [facility] [address] [place], [place] [address] Dr. Peg Shelby Urea nitrogen/Creatinine [Mass ratio] 15.9 mg/mg Normal [facility] Comment on above: Performed By: #### C MP, LIPID #### [facility] [address] [place], [place] [address] Dr. Peg Shelby 2019 Novel Coronavirus (CoVI D-19), LUCINDA LCon 12-23-2019 SARS-CoV-2, LUCINDA (COVID-19) LC Detected Abnormal Not Detected [facility] Comment on above: Order Comment: [id number] Results Called To Imelda at Dr. Alba's By JOSUE And Read Back For Confirmation On 12/23/2019 11:38:22 EDT. Result Comment: This test was developed and its performance characteristics determined by [employer]. This test has not been FDA cleared [...] detected) result in this assay. Performed At: [facility] [address] [facility], [place] [id number] Kenna Bach MD Ph:[phone] Performed By: #### 6 [id number] #### [facility] (DEFAULT) [address] [place] [address] Coding Summaryon 12-22-2019 Coding Summary CODING DATE: 020 FINAL [facility] STATUS: Home PAYOR: Commercial Insurance ADMIT [...] Sheryl Lovett Date Saved: 12/22/2019 01:57 pm [facility] Consent Formson 12-22-2019 Consent Forms [id number] [facility] Vital Signs Date Time Vital Sign Value Performing Clinician Facility 09-01-2024 13:28-0400 Body height 160 cm Enrique Alba MD Work Phone: [facility] 09-01-2024 13:28-0400 Body mass index (BMI) [Ratio] 48.71 kg/m2 Enrique Alba MD Work Phone: [facility] 09-01-2024 13:28-0400 Body weight 124.74 kg Enrique Alba MD Work Phone: [facility] 09-01-2024 13:28-0400 Heart rate 77 /min Enrique Alba MD Work Phone: [facility] 09-01-2024 13:28-0400 SaO2% (BldA) [Mass fraction] 97 % Enrique Alba MD Work Phone: [facility] 08-02-2024 15:24-0400 Body height 160 cm Enrique Alba MD Work Phone: [facility] 08-02-2024 15:24-0400 Body mass index (BMI) [Ratio] 48.71 kg/m2 Enrique Alba MD Work Phone: [facility] 08-02-2024 15:24-0400 Body weight 124.74 kg Enrique Alba MD Work Phone: [facility] 08-02-2024 15:24-0400 Diastolic blood pressure 80 mm[Hg] Enrique Alba MD Work Phone: [facility] 08-02-2024 15:24-0400 Heart rate 90 /min Enrique Alba MD Work Phone: [facility] 08-02-2024 15:24-0400 SaO2% (BldA) [Mass fraction] 97 % Enrique Alba MD Work Phone: [facility] 08-02-2024 15:24-0400 Systolic blood pressure 136 mm[Hg] Enrique Alba MD Work Phone: [facility] 06-15-2024 18:15-0500 Body temperature 97.2 [degF] Luis Eduardo Julián FAMILY SERVICES WORKER Work Phone: [facility] 06-15-2024 18:15-0500 Diastolic blood pressure 90 mm[Hg] Luis Eduardo Levine FAMILY SERVICES WORKER Work Phone: [facility] 06-15-2024 18:15-0500 Heart rate 88 /min Luis Eduardo Levine FAMILY SERVICES WORKER Work Phone: [facility] 06-15-2024 18:15-0500 SaO2% (BldA) [Mass fraction] 98 % Luis Eduardo Levine FAMILY SERVICES WORKER Work Phone: [facility] 06-15-2024 18:15-0500 Systolic blood pressure 138 mm[Hg] Luis Eduardo Julián FAMILY SERVICES WORKER Work Phone: [facility] 04-17-2024 10:20-0500 Body mass index (BMI) [Ratio] 48.86 kg/m2 Beatriz Rankin FAMILY SERVICES WORKER Work Phone: [facility] 04-17-2024 10:20-0500 Body temperature 97.59 [degF] Beatriz Rankin FAMILY SERVICES WORKER Work Phone: [facility] 04-17-2024 10:20-0500 Body weight 125.1 kg Beatriz Rankin FAMILY SERVICES WORKER Work Phone: [facility] 04-17-2024 10:20-0500 Diastolic blood pressure 84 mm[Hg] Beatriz Rankin FAMILY SERVICES WORKER Work Phone: [facility] 04-17-2024 10:20-0500 Heart rate 100 /min Beatriz Rankin FAMILY SERVICES WORKER Work Phone: [facility] 04-17-2024 10:20-0500 SaO2% (BldA) [Mass fraction] 97 % Beatriz Rankin FAMILY SERVICES WORKER Work Phone: [facility] 04-17-2024 10:20-0500 Systolic blood pressure 138 mm[Hg] Beatriz Rankin FAMILY SERVICES WORKER Work Phone: [facility] 04-05-2024 13:48-0500 Body height 160 cm Enrique Alba MD Work Phone: [facility] 04-05-2024 13:48-0500 Body mass index (BMI) [Ratio] 36.31 kg/m2 Enrique Alba MD Work Phone: [facility] 04-05-2024 13:48-0500 Body weight 92.99 kg Enrique Alba MD Work Phone: [facility] 04-05-2024 13:48-0500 Heart rate 93 /min Enrique Alba MD Work Phone: [facility] 04-05-2024 13:48-0500 SaO2% (BldA) [Mass fraction] 95 % Enrique Alba MD Work Phone: [facility] 03-29-2024 11:40-0500 Body mass index (BMI) [Ratio] 36.34 kg/m2 Janey RILEY Work Phone: [facility] 03-29-2024 11:40-0500 Body weight 93.04 kg Janey RILEY Work Phone: [facility] 03-29-2024 11:40-0500 Diastolic blood pressure 90 mm[Hg] Janey RILEY Work Phone: [facility] 03-29-2024 11:40-0500 Systolic blood pressure 138 mm[Hg] Janey RILEY Work Phone: [facility] 03-11-2024 14:26-0500 Body height 160 cm Enrique Alba MD Work Phone: [facility] 03-11-2024 14:26-0500 Body mass index (BMI) [Ratio] 49.6 kg/m2 Enrique Alba MD Work Phone: [facility] 03-11-2024 14:26-0500 Body weight 127.01 kg Enrique Alba MD Work Phone: [facility] 02-25-2024 15:35-0400 Body height 160 cm Enrique Alba MD Work Phone: [facility] 02-25-2024 15:35-0400 Body mass index (BMI) [Ratio] 49.6 kg/m2 Enrique Alba MD Work Phone: [facility] 02-25-2024 15:35-0400 Body weight 127.01 kg Enrique Alba MD Work Phone: [facility] 02-25-2024 15:35-0400 Diastolic blood pressure 78 mm[Hg] Enrique Alba MD Work Phone: [facility] 02-25-2024 15:35-0400 Heart rate 97 /min Enrique Alba MD Work Phone: [facility] 02-25-2024 15:35-0400 SaO2% (BldA) [Mass fraction] 99 % Enrique Alba MD Work Phone: [facility] 02-25-2024 15:35-0400 Systolic blood pressure 132 mm[Hg] Enrique Alba MD Work Phone: [facility] 12-16-2023 16:24-0400 Body height 160 cm Enrique Alba MD Work Phone: [facility] 12-16-2023 16:24-0400 Body mass index (BMI) [Ratio] 46.06 kg/m2 Enrique Alba MD Work Phone: [facility] 12-16-2023 16:24-0400 Body weight 117.94 kg Enrique lAba MD Work Phone: [facility] 12-05-2022 14:03-0400 Body height [address] Work Phone: [facility] 12-05-2022 14:03-0400 Body weight 117.[address] Work Phone: [facility] 10-30-2022 13:20-0400 Body height 160 cm Radha Rios MD Work Phone: [facility] 10-30-2022 13:20-0400 Body weight 120.2 kg Radha Rios MD Work Phone: [facility] 08-01-2022 14:50-0400 Diastolic blood pressure 81 mm[Hg] Mariajose Asher MD Work Phone: [facility] 08-01-2022 14:50-0400 Heart rate 101 /min Mariajose Asher MD Work Phone: [facility] 08-01-2022 14:50-0400 Systolic blood pressure 177 mm[Hg] Mariajose Asher MD Work Phone: [facility] 05-07-2022 14:00-0500 Body height 160.02 cm Ernie Fuller Other [facility] Other 05-07-2022 14:00-0500 Body mass index (BMI) [Ratio] 46.05 kg/m2 Ernie Fuller Other [facility] Other 05-07-2022 14:00-0500 Body weight 117.94 kg Ernie Fuller Other [facility] Other 05-07-2022 14:00-0500 Diastolic blood pressure 109 mm[Hg] Ernie Fuller Other [facility] Other 05-07-2022 14:00-0500 Systolic blood pressure 172 mm[Hg] Ernie Fuller Other [facility] Other 01-30-2022 10:45-0400 Body height 160.02 cm Ernie Fuller Other [facility] Other 01-30-2022 10:45-0400 Body mass index (BMI) [Ratio] 47.29 kg/m2 Ernie Fuller Other [facility] Other 01-30-2022 10:45-0400 Body weight 121.11 kg Ernie Fuller Other [facility] Other Encounters Encounter Date Encounter Type Care Provider Facility Start: 10-27-2024 End: 10-27-2024 Clinisync Result Encounter Enrique Alba MD Work Phone: [facility] Unsolicited Start: 10-27-2024 End: 10-27-2024 Clinisync Result Encounter Enrique Alba MD Work Phone: [facility] Unsolicited Start: 09-01-2024 End: 09-01-2024 Bamboo flowsheet Enrique [...] major depressive disorder, in partial remission (HCC) ([facility]); Primary hypertension ([facility]); Mixed dyslipidemia ([facility]); Pre-diabetes; Morbid obesity ([facility]); Adult BMI 45.0-49.9 kg/sq m ([facility]/HCC) Start: 08-02-2024 End: 08-02-2024 ambulatory ENRIQUE ALBA Not Available Start: 08-02-2024 End: 08-02-2024 Bamboo flowsheet Enrique Alba MD Work Phone: [facility] Start: 08-02-2024 End: 08-02-2024 Bamboo flowsheet Enrique Alba MD Work Phone: [facility] Start: 06-16-2024 End: 06-16-2024 Telephone encounter Luis Eduardo Levine FAMILY SERVICES WORKER Work Phone: [facility] Start: 06-15-2024 End: 06-15-2024 Office outpatient visit 25 minutes Luis Eduardo Levine FAMILY SERVICES WORKER Work Phone: [facility] Comment on [...] Office outpatient visit 25 minutes Beatriz Rankin FAMILY SERVICES WORKER Work Phone: [facility] Comment on [...] Taylor Gee RD Work Phone: [facility] Start: 10-30-2022 End: 10-30-2022 ambulatory RADHA RIOS Facility:[facility] Start: 10-30-2022 End: 10-30-2022 Patient encounter procedure Radha Rios MD Work Phone: Gastroenterology Comment on above: Fatty liver (Primary Dx); Class 3 severe obesity due to excess calories in adult, unspecified BMI, unspecified whether serious comorbidity present (HCC) Start: 08-01-2022 End: 08-01-2022 ambulatory MARIAJOSE ASHER Facility:[facility] Start: 08-01-2022 End: 08-01-2022 Patient encounter procedure Mariajose Asher MD Work Phone: Rheumatology Comment on above: 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); Primary osteoarthritis involving multiple joints; NSAID long-term use Start: 06-17-2022 End: 06-17-2022 ambulatory Ben Li Other [facility] Other Start: 06-17-2022 Telephone encounter Ben Henry [facility] [employer] Operators Supervisor Start: 05-07-2022 End: 05-07-2022 ambulatory Ernie Fuller Other [facility] Other Start: 05-07-2022 Office outpatient vi sit 25 minutes Ernie Fuller [facility] Start: 02-20-2022 End: 02-20-2022 ambulatory Enrique Alba Facility:[facility] Start: 01-30-2022 End: 01-30-2022 ambulatory Ernie Fuller Other [facility] Other Start: 01-30-2022 Office outpatient ne w [...] Date Procedure Procedure Detail Performing Clinician Start: 10-27-2024 ALL CBC WITH AUTO DIFF Edward J Hemeyer MD Work Phone: Start: 04-17-2024 Radiologic examination knee 3 views Beatriz Rankin FAMILY SERVICES WORKER Work Phone: Start: 03-29-2024 IGP,APTIMA HPV,AGE GDLN Janey RILEY Work Phone: Start: 03-29-2024 Microscopic observation [Identifier] in Cervix by Cyto stain Enrique Alba MD Work Phone: Start: 03-05-2024 ALL LIPID PROFILE (FASTING) Enrique Alba MD Work Phone: Start: 03-05-2024 [facility] CMP (CMP) (FOR REMOTE [facility] USE) Enrique Alba MD Work Phone: [...] Screening for malign ant neoplasm of cervix [facility] Start: 09-18-2026 Screening for malign ant neoplasm of colon [facility] Start: 11-01-2025 Screening for malign ant neoplasm of cervix [facility] Start: 04-04-2025 End: 04-04-2025 Patient encounter procedure 04/04/2025 3:00 PM EST Office Visit [facility] [address] [place] [address] Janey Davis PA [address] [place] [address] [facility] Start: 03-05-2025 Screening for malign ant neoplasm of breast Mammogram [facility] Start: 12-27-2024 Influenza vaccination Influenza Vacc ine (#1) [facility] Start: 09-01-2024 End: 09-01-2025 Holter monitor study Holter monitor Imaging Routine Palpitations Tachycardia Expected: 09/01/2024 (Approximate), Expires: 09/01/2025 [facility] Work Phone: Comment on above: Expected: 09/01/2024 (Approximate), Expires: 09/01/2025 Start: 09-01-2024 End: 09-01-2024 Patient encounter procedure 09/01/2024 1:45 PM EDT Office Visit [facility] [address] [place] [address] Enrique Alba MD [address] [place] [address] (Fax) Arrived [facility] Comment on above: Arrived Start: 08-02-2024 End: 08-02-2024 Patient encounter procedure 08/02/2024 3:30 PM EDT Office Visit [facility] [address] [place] [address] Enrique Alba MD [address] [place] [address] (Fax) Primary hypertension ([facility]/HCC); Mixed dyslipidemia (CMS/HCC); Pre-diabetes; Glucose intolerance (impaired [...] leg syndrome Expected: 08/02/2024 (Approximate), Expires: 08/02/2025 [facility] Work Phone: Comment on above: Expected: 08/02/2024 (Approximate), Expires: 08/02/2025 Start: 08-02-2024 End: 08-02-2025 Iron and Iron binding capacity panel - Serum or Plasma Iron and TIBC Lab Routine Restless leg syndrome Expected: 08/02/2024 (Approximate), Expires: 08/02/2025 [facility] Comment on above: Expected: 08/02/2024 (Approximate), Expires: 08/02/2025 Start: 03-29-2024 End: 03-29-2024 Patient encounter procedure [facility] Comment on above: Arrived Start: 03-18-2024 Screening for malign ant neoplasm of cervix [facility] Start: 02-26-2024 End: 02-25-2025 Comprehensive metabolic 2000 panel - Serum or Plasma Comprehensive metabolic panel Lab Routine Glucose intolerance (impaired glucose tolerance) Primary hypertension ([facility]) Expected: 02/26/2024 (Approximate), Expires: 02/25/2025 [facility] Work Phone: Comment on above: Expected: 02/26/2024 (Approximate), Expires: 02/25/2025 Start: 02-26-2024 End: 04-27-2025 DBT Breast - bilateral screening Bilateral screening mammogram with tomosynthesis Imaging Routine Screening mammogram for breast cancer Expected: 02/26/2024 (Approximate), Expires: 04/27/2025 [facility] Comment on above: Expected: 02/26/2024 (Approximate), Expires: 04/27/2025 Start: 02-26-2024 End: 02-25-2025 DXA Skeletal system Views for bone density DEXA bone density Imaging Routine Menopausal and female climacteric states Osteoporosis screening Encounter for follow-up examination after completed treatment for conditions other than malignant neoplasm Expected: 02/26/2024 (Approximate), Expires: 02/25/2025 [facility] Comment on above: Expected: 02/26/2024 (Approximate), Expires: 02/25/2025 Start: 02-26-2024 End: 02-25-2025 Lipid 1996 panel - Serum or Plasma Lipid panel Lab Routine Mixed hyperlipidemia (CMS/HCC) Expected: 02/26/2024 (Approximate), Expires: 02/25/2025 [facility] Comment on above: Expected: 02/26/2024 (Approximate), Expires: 02/25/2025 Start: 02-25-2024 End: 02-25-2024 Patient encounter procedure 02/25/2024 3:30 PM EDT Office Visit [facility] [address] [place] [address] Enrique Alba MD [address] [facility] [address] [place] [address] Encounter for wellness examination in adult; Advance directive discussed with patient; Morbid obesity (CMS/HCC); Adult BMI 45.0-49.9 kg/sq m (CMS/HCC) [facility] Comment on above: Encounter for wellne ss examination in adult; Advance directive discussed with patient; Morbid obesity (CMS/HCC); Adult BMI 45.0-49.9 kg/sq m (CMS/HCC) Start: 12-28-2023 Influenza vaccination Influenza Vacc ine (#1) [facility] Start: 12-27-2022 Influenza vaccination INFLUENZA (#1) [facility] Start: 11-05-2022 Screening for malign ant neoplasm of breast Mammogram [facility] Start: 10-30-2022 End: 12-30-2022 CELIAC SCREEN WITH REFLEX CELIAC SCREEN WITH REFLEX Lab Routine Fatty liver Expected: 10/30/2022, Expires: 12/30/2022 [facility] Work Phone: Comment on above: Expected: 10/30/2022 , Expires: 12/30/2022 Start: 10-30-2022 End: 12-30-2022 Comprehensive metabolic 2000 panel - Serum or Plasma COMP METABOLIC PANEL Lab Routine Fatty liver Expected: 10/30/2022, Expires: 12/30/2022 [facility] Work Phone: Comment on above: Expected: 10/30/2022 , Expires: 12/30/2022 Start: 10-30-2022 End: 12-30-2022 HEPATITIS A ANTIBODY, IGG HEPATITIS A ANTIBODY, IGG Lab Routine Fatty liver Expected: 10/30/2022, Expires: 12/30/2022 [facility] Work Phone: Comment on above: Expected: 10/30/2022 , Expires: 12/30/2022 Start: 04-28-2022 DEPRESSION ASSESSMENT DEPRESSION ASS ESSMENT [facility] Start: 07-12-2021 Mammography MAMMOGRAM [facility] Start: 2020 SHINGRIX VACCINE (1 of 2) SHINGRIX VACCINE (1 of 2) [facility] Start: 03-31-2016 DIABETES SCREEN DIABETES SCREEN [facility] Start: 09-25-2015 COLOGUARD (FIT-DNA) COLOGUARD (FIT-D NA) [facility] Start: 09-25-2015 Colonoscopy COLONOSCOPY [facility] Start: 09-25-2015 COLORECTAL CANCER SCREENING COLORECTAL CANCER SCREENING [facility] Start: 09-25-[address] COLONOGRAPHY [facility] Start: 09-25-2015 FECAL OCCULT BLOOD FECAL OCCULT BLOO D [facility] Start: 09-25-2015 LIPID SCREEN LIPID SCREEN [facility] Start: 09-25-2015 SIGMOIDOSCOPY SIGMOIDOSCOPY [facility] Start: 2010 Mammography MAMMOGRAM [facility] Start: 2000 HPV TESTING HPV TESTING [facility] Start: 09-25-1991 PAP TESTING PAP TESTING [facility] Start: 09-25-1991 Screening for malign ant neoplasm of cervix Pap Smear [facility] Start: 1989 Urine microalbumin profile DTAP,TDAP,TD (1 - Tdap) [facility] Start: 1988 HEPATITIS C SCREENING HEPATITIS C SC REENING [facility] Start: 1988 HIV SCREENING HIV SCREENING [facility] Start: 1970 HEPATITIS B (1 of 3 - 3-dose series) HEPATITIS B (1 of 3 - 3-dose series) [facility] Start: 1970 Screening for malign ant neoplasm of colon [facility] THIN PREP TIS PAP AN D HR HPV DNA THIN PREP TIS PAP AND HR HPV DNA Pathology and Cytology Routine Well woman exam with routine gynecological exam Ordered: 03/29/2024 [facility] Work Phone: Comment on above: Ordered: 03/29/2024 [facility] Immunizations Immunization Date Immunization Notes Care Provider Wilfredo simmons 01-05-2024 influenza, injectabl e, madin francesca canine kidney, preservative free Enrique Alba MD Work Phone: [facility] 01-05-2024 influenza virus vacc ine, unspecified formulation Enrique Alba MD Work Phone: [facility] 01-20-2023 Influenza, injectabl e, Madin Peebles Canine Kidney, preservative free, quadrivalent Ernique Alba MD Work Phone: [facility] 01-20-2023 influenza virus vacc ine, unspecified formulation Enrique Alba MD Work Phone: [facility] 01-15-2022 Influenza, injectabl e, Madin Francesca Canine Kidney, preservative free, quadrivalent Enrique Alba MD Work Phone: [facility] 01-15-2022 SARS-COV-2 (COVID-19 ) vaccine, mRNA, spike protein, LNP, bivalent, preservative free, 30 mcg/0.3 mL dose, joyce-sucrose formulation Enrique Alba MD Work Phone: [facility] 02-10-2021 zoster vaccine recombinant Enrique Alba MD Work Phone: [facility] 01-27-2021 influenza, injectabl e, quadrivalent, preservative free Enrique Alba MD Work Phone: [facility] 12-02-2020 zoster vaccine recombinant Enrique Alba MD Work Phone: [facility] 02-02-2020 influenza, injectabl e, quadrivalent, preservative free Enrique Alba MD Work Phone: [facility] 02-01-2020 influenza, high dose seasonal, preservative-free Enrique Alba MD Work Phone: [facility] 01-30-2019 influenza, injectabl e, quadrivalent, preservative free Enrique Alba MD Work Phone: [facility] 01-21-2019 Influenza, injectabl e, Madin Francesca Canine Kidney, preservative free, quadrivalent Enrique Alba MD Work Phone: [facility] 01-22-2018 Influenza, injectabl e, Madin Francesca Canine Kidney, quadrivalent with preservative Enrique Alba MD Work Phone: [facility] 01-21-2018 influenza, injectabl e, quadrivalent, preservative free Enrique Alba MD Work Phone: [facility] 01-28-2017 influenza, injectabl e, quadrivalent, preservative free Enrique Alba MD Work Phone: [facility] 01-18-2017 influenza, seasonal, injectable, preservative free Enrique Alba MD Work Phone: [facility] 03-17-2016 influenza, injectabl e, quadrivalent, preservative free Enrique Alba MD Work Phone: [facility] 02-18-2015 influenza, seasonal, injectable, preservative free Enrique Alba MD Work Phone: [facility] 01-09-2015 influenza, injectabl e, quadrivalent, preservative free Enrique Alba MD Work Phone: [facility] 03-17-2013 influenza virus vacc ine, whole virus Enrique Alba MD Work Phone: [facility] Payers Date Payer Category Payer Unknown [employer] [id number] 2022-Present [phone] [address] [address] [place] [address] [id number] 2022 Unknown [id number] 2022 Private Health Insurance [id number] 2022 Unknown [id number] 2022 Self-pay 1970 Unknown [id number] 2.16.840.1.759094.3.579. 2.593 1970 Unknown [id number] 2.16.840.1.043904.3.579. 2.59 1970 Unknown [id number] 2.16.840.1.241445.3.579. 2.59 1970 Unknown [id number] 2.16.840.1.841473.3.579. 2. 1970 Unknown [id number] 2.16.840.1.906122.3.579. 2. 1970 Unknown [id number] 2.16.840.1.059914.3.579. 2.1258 1970 Unknown [id number] 2.16.840.1.373586.3.579. 2.1258 1970 Unknown [id number] 2.16.840.1.195684.3.579. 2.1258 1970 Unknown [id number] 2.16.840.1.564220.3.579. 2.1258 1970 Unknown [id number] 2.16.840.1.642230.3.579. 2.1258 1970 Unknown [id number] 2.16.840.1.146576.3.579. 2.1258 1970 Unknown [id number] 2.16.840.1.194521.3.579. 2.1258 1970 Unknown [id number] 2.16.840.1.580384.3.579. 2.1258 1970 Unknown [id number] 2.16.840.1.301875.3.579. 2.1259 1970 Unknown [id number] 2.16.840.1.506607.3.579. 2.1259 1970 Unknown [id number] 2.16.840.1.895466.3.579. 2.1259 1959 Unknown [id number] Unknown [id number] 2.16.840.1.898343.3.579. 2.531 Social History Date Type Detail Facility Unknown if ever smoked [facility] Other Start: 10-30-2022 End: 12-15-2023 Sex Assigned At [facility] Start: 10-16-2012 End: 09-19-2022 Tobacco smoking status HIIS Never smoked tobacco [facility] Work Phone: Start: 10-16-2012 End: 09-19-2022 Tobacco use and exposure Smokeless tobacco non-user [facility] Work Phone: Start: 11-08-2019 End: 10-30-2022 Alcohol intake Current non-drinker of alcohol (finding) [facility] Start: 1970 Sex Assigned At Not on file [facility] Start: 10-30-2022 End: 12-15-2023 History of Social function [facility] Adult Depression Screening Assessment 2 [facility] Start: 12-16-2023 End: 09-01-2024 Alcoholic beverage intake [...] Cement Radiopaque Full Dose Individual Pack - [id number] Start: 10-27-2012 Simplex P Bone Cement Radiopaque Full Dose Individual Pack - [id number] Start: 03-30-2013 Comp Fem 4 Lt Kn Cr Ivan Trthln - [id number] Start: 10-27-2012 Ins Tib 3 9mm Kn X3 Cr Trthln - [id number] Start: 03-30-2013 Comp Pat 10mm 32 mm Asym Trthln - [id number] Start: 10-27-2012 Comp Pat 10mm 32 mm Asym Trthln - [id number] Start: 03-30-2013 Baseplt Tib Trth ln 4 Prim - [id number] Start: 10-27-2012 Baseplt Tib Trth ln 3 Prim - [id number] Start: 03-30-2013 Clinical Notes 01-30-2022 to 09-01-2024 Enrique Alba MD - 09/01/2024 1:45 PM Tigist Alba MD - 08/02/2024 3:30 PM EDTTelephone Encounter - Luis Eduardo Levine NP - 06/16/2024 3:00 PM OSVALDO Argueta - 03/29/2024 11:00 AM EST Ginny Date & Type Note Facility 09-01-2024 History [...] lifestyle. Aggravating factors: started [facility] and intermittently she has it while she [...] problem that has been going on since [facility] No cause is established today. The 1st [...] - Holter monitor documented in this encounter [facility] 08-02-2024 History of Present illness Narrative Images [...] stress and depression anxiety. 8. Morbid obesity (CMS/HCC) Lifestyle changes as note 9. Adult BMI 45.0-49.9 kg/sq m (CMS/HCC) Defines a morbid obesity documented in this encounter [facility] 06-16-2024 Miscellaneous Notes Please notify patient that [...] plantar calcaneal enthesophyte documented in this encounter [facility] 06-16-2024 Telephone encounter Note Please notify patient [...] midfoot arthrosis Small plantar calcaneal enthesophyte [facility] 06-15-2024 History of Present illness Narrative [...] See telephone encounter. documented in this encounter [facility] 04-17-2024 History of Present illness Narrative HPI: [...] Beatriz Rankin NP documented in this encounter [facility] 04-05-2024 History of Present illness Narrative Images [...] tablet; Refill: 0 documented in this encounter [facility] 03-29-2024 History of Present illness Narrative Reason [...] glucose tolerance) 09/17/2022 Hepatitis 09/17/2022 HTN (hypertension) ([facility]/HCC) 09/17/2022 Insomnia due to other mental disorder 09/17/2022 Mixed dyslipidemia ([facility]/HCC) 09/17/2022 Morbid obesity ([facility]/HCC) 09/17/2022 Obstructive sleep apnea hypopnea, moderate 09/17/2022 Osteoarthritis of joint of toe of right foot 09/17/2022 Other chronic pain 09/17/2022 Overactive bladder 09/17/2022 Primary osteoarthritis, right hand 09/17/2022 Recurrent major depressive disorder, in partial remission (HCC) ([facility]) 09/17/2022 Sleep disorder 09/17/2022 Status post bilateral knee replacements 09/17/2022 Enuresis 09/17/2022 Urinary incontinence 09/17/2022 Adult BMI 45.0-49.9 kg/sq m ([facility]) 05/14/2023 Restless leg syndrome 08/14/2023 Pre-diabetes 03/20/2024 Resolved Ambulatory Problems Diagnosis Date Noted Gynecological disease 09/17/2022 Pain in female genitalia on intercourse 09/17/2022 Piriformis syndrome of left side 09/17/2022 Past Medical History: Diagnosis Date Anxiety Arthritis Back problem Bladder infection Chest wall abscess COVID-19 11/2019 Depression (CMS/HCC) Kidney stones Knee problem Migraine headache ([facility]) Moderate single current episode of major depressive disorder (HCC) ([facility]/HCC) Obesity PMB (postmenopausal bleeding) Post-acute sequelae of COVID-19 ([facility]) Sprain of left ankle Swelling Varicella Vision impairment HISTORY PAST MEDICAL HISTORY SOCIAL HISTORY Past Medical History: Diagnosis Date Anxiety Arthritis Back problem Bladder infection Chest wall abscess COVID-19 11/2019 Depression ([facility]/HCC) ESS (euthyroid sick syndrome) HTN (hypertension) ([facility]) Kidney stones Knee problem Migraine headache ([facility]/HCC) Moderate single current episode of major depressive disorder (HCC) ([facility]/HCC) Obesity Piriformis syndrome of left side 09/17/2022 [...] JOINT REPLACEMENT OTHER SURGICAL HISTORY bilateral arthroscopy [place] LAP,CHOLECYSTECTOMY 2016 TOTAL KNEE ARTHROPLASTY Bilateral 2014 [...] nursing note reviewed. Exam conducted with a engagement executive present. Vitals: Estimated body mass index is [...] of: OSVALDO Wilks documented in this encounter [facility] 03-11-2024 History of Present illness Narrative Images [...] mg was sent. documented in this encounter [facility] 02-25-2024 History of Present illness Narrative Images from the original note were not included. Patient ID: Naima Rios is a 53 y.o. female who presents for: See Scanned Wellness packet Advance Directive/Living Will: No Health Care Power of Business Analyst Consultant: No Review of Systems Constitutional: Positive for [...] through a living will, durable power of erisa attorney for healthcare, or other advanced directives. [...] with tomosynthesis; Future documented in this encounter [facility] 12-25-2023 Telephone encounter Note Rx sent [facility] 12-25-2023 Miscellaneous Notes Rx sent documented in this encounter [facility] 12-16-2023 History of Present illness Narrative Images [...] major depressive disorder, in partial remission (HCC) ([facility]) Chronic problem, stable, overall doing well. In [...] 30 capsule; Refill: 0 3. Morbid obesity ([facility]) 4. Adult BMI 45.0-49.9 kg/sq m ([facility]) documented in this encounter [facility] 12-05-2022 Note HNO ID: [id number] Author: Taylor Gee RD Service: ? Author Type: Registered Dietitian Type: Progress Notes Filed: 12/05/2022 2:43 PM Note Text: [facility] Nutrition Therapy: Virtual Consult - Initial Assessment I have communicated my name and active licensure. The patient?s identity and physical location were verified at the time of this visit. Either the patient or their legal sales representative rural power has been informed of the risks and [...] cheese or fruit or none Lunch - [id number] w/ chicken/ham, makenzie, onion, pepper FF ranch [...] Rios DATE: 12/05/2022 TIME: 2:05 PM PAGER: [phone] [facility] 12-05-2022 History of Present illness Narrative [facility] Nutrition Therapy: Virtual Consult - Initial Assessment I have communicated my name and active licensure. The patient s identity and physical location were verified at the time of this visit. Either the patient or their legal sales representative rural power has been informed of the risks and [...] cheese or fruit or none Lunch - [id number] w/ chicken/ham, makenzie, onion, pepper FF ranch [...] Rios DATE: 12/05/2022 TIME: 2:05 PM PAGER: [phone] documented in this encounter [facility] 10-30-2022 Note HNO ID: [id number] Author: Radha Rios MD Service: ? Author Type: Physician Type: Progress Notes Filed: 10/30/2022 2:34 PM Note Text: Hepatology Clinic Mindy Richey MD, FACG, FAASLD Director, [facility] Hepatology [facility] Consult Requested By: Mike David Saeed [address] [facility] [id number] for evaluation of her fatty liver .. 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 Please feel free to contact me if I can be of further assistance to you {I spent 45 minutes in the visit, with more than 50% of the total lcsc-iv-muss time of the visit in counseling / coordination of care. [facility] 10-30-2022 History of Present illness Narrative Images from the original note were not included. Hepatology Clinic Mindy Richey MD, FACG, FAASLD Director, [facility] Hepatology [facility] Consult Requested By: Mike Saeed [address] [facility] [address] for evaluation of her fatty liver .. 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 , a+0 X3 Glucose Date Value Ref Range Status 03/31/2013 157 (H) 65 - 100 mg/dL Final CRP Date Value Ref Range Status 10/14/2019 0.6 <0.9 mg/dL Final TG 230 HDL 50 ast /alt 36/50 Fibroscan done 01/2022 A/p: Dear Dr Anjali Holden is a 52 yo lady she has abnormal liver tests, fatty liver, and a bmi> 45, YOLI we discussed need for : nutriional referral start GLP1RA/ Wegovy start statins exercise 300 min a week plus 3 days a week strenuous patient to discuss the above with Dr Alba rtc 4-7m Radha Richey MD Consider seeing me at [facility] on a Thank you again for your kind referral. Please feel free to contact me if I can be of further assistance to you {I spent 45 minutes in the visit, with more than 50% of the total bjdc-pz-thpp time of the visit in counseling / coordination of care. documented in this encounter [facility] 08-01-2022 Note HNO ID: [id number] Author: Mariajose Asher MD Service: ? Author Type: Physician Type: Progress Notes Filed: 08/01/2022 3:52 PM Note Text: Rheumatology Outpatient Clinic Date of Service: 08/01/2022 Patient: Naima Rios Medical Record: [id number] Primary Care Physician: Zeferino Flores Last Rheumatology visit: None at [facility] History of Present Illness Naima Rios is [...] , low transverse COLONOSCOP W/ OR W/O [facility] SPEC Colonoscopy EGD EXTRACTION, ERUPTED TOOTH OR [...] as needed. meloxicam (more content not included)... [facility] 08-01-2022 History of Present illness Narrative Images from the original note were not included. Rheumatology Outpatient Clinic Date of Service: 08/01/2022 Patient: Naima Rios Medical Record: [id number] Primary Care Physician: Zeferino Flores Last Rheumatology visit: None at [facility] History of Present Illness Naima Rios is [...] , low transverse COLONOSCOP W/ OR W/O [facility] SPEC Colonoscopy EGD EXTRACTION, ERUPTED TOOTH OR [...] There is narrowing of all interphalangeal joints. Woodworking Machine Offbearer: MARJ Transcribe Date/Time: Oct 10 2019 10:51A... Last MRI Hand - Impression Only No resulted procedures found. Last XR Chest - Impression Only No resulted procedures found. Last XR Cervical Spine - Impression Only No resulted procedures found. Health Maintenance Current Immunizations Never Reviewed Name Date COVID-19 vaccine, bivalent ([employer]) 01/15/2022 COVID-19 vaccine, monovalent ([employer]) 07/27/2021 , 03/08/2021 , 08/04/2020 Physical Exam [...] which included preparing to see the patient, ibto-pf-wgmu patient care, completing clinical documentation, obtaining and/or [...] Time: 3:09 PM documented in this encounter [facility] 05-07-2022 Evaluation note Encounter Date Diagnosis Assessment Notes Apr, Fatty liver (ICD-10 - K76.0) LABS PATIENT ENCOURAGED WEIGHT LOSS. REFERRAL TO WEIGHT LOSS CLINIC WITH DR. LI. Apr, Elevated liver enzymes (ICD-10 - R74.8) [facility] Other 10-05-2022 Evaluation note* Encounter Date Diagnosis [...] start vitamin e and milk thistle OTC [facility] Other Evaluation noteNo InformationNortTask Messenger Other Evaluation note* Diagnosis Erosive osteoarthritis of both hands- Primary Primary osteoarthritis involving multiple joints NSAID long-term use Encounter for long-term (current) use of non-steroidal anti-inflammatories [facility] Fatty liver- Primary Other chronic nonalcoholic liver disease Class 3 severe obesity due to excess calories in adult, unspecified BMI, unspecified whether serious comorbidity present (HCC) [facility] Diagnosis Fatty liver Other chronic nonalcoholic liver disease [facility] Diagnosis Encounter for wellness examination in [...] for breast cancer documented in this encounter [facility]* Diagnosis Mixed dyslipidemia (CMS/HCC) documented in this encounter [facility]* Diagnosis Pre-diabetes- Primary Other abnormal glucose Restless leg syndrome Restless legs syndrome (RLS) Mixed dyslipidemia (CMS/HCC) documented in this encounter [facility] Healthcare[facility] note* Diagnosis Well woman exam with routine gynecological exam Routine gynecological examination Yeast infection of the skin Candidiasis of skin and nails documented in this encounter [facility] HealthcareEvaluation note* Diagnosis Pre-diabetes Other abnormal glucose documented in this encounter [facility]Evaluation note* Diagnosis Acute non-recurrent pansinusitis- Primary documented in this encounter [facility] note* Diagnosis Insomnia due to other mental disorder Recurrent major depressive disorder, in partial remission (HCC) (CMS/HCC) Morbid obesity (CMS/HCC) Morbid obesity Adult BMI 45.0-49.9 kg/sq m (CMS/HCC) documented in this encounter [facility] HealthcareEvaluation note* Diagnosis Recurrent major depressive disorder, in partial remission (HCC) (CMS/HCC)- Primary documented in this encounter [facility] HealthcareEvaluation note* Diagnosis Acute pain of left knee- Primary documented in this encounter [facility] note* Diagnosis Pre-diabetes Other abnormal glucose [...] depressive disorder, in partial remission (HCC) (CMS/HCC) Primary hypertension (CMS/HCC) Unspecified essential hypertension Mixed dyslipidemia (CMS/HCC) Pre-diabetes Other abnormal glucose Morbid obesity (CMS/HCC) [...] removal Hospitalization History See past surgical hx [facility] Other Reason for visit NarrativePT HERE REQ OF DR. ALBA FOR ELEVATED LIVER ENZYMES, (referral note received)[facility] Other Summary Purpose Family History No Family [...] THERAPY MEDICAL NUTRITION ASSMT&IVNTJ INDIV EACH 15 [place] MEDICAL NUTRITION ASSMT&IVNTJ INDIV EACH 15 [place] MEDICAL NUTRITION ASSMT&IVNTJ INDIV EACH 15 [place] MEDICAL NUTRITION ASSMT&IVNTJ INDIV EACH 15 [place] Radha Abdul MD [address] [facility] [address] [place] [address] Referral ID Status Reason Start Date Expiration Date Visits Requested Visits Authorized [id number] Authorized PCP Requested Referral 10/30/2022 01/28/2023 1 1 Additional Source Comments INFORMATION SOURCE (unrecogn ized section and content) DATE CREATED AUTHOR 12/24/2019 [facility] DATE CREATED AUTHOR AUTHOR'S ORGANIZ ATION 11/14/2021 [facility] DATE CREATED AUTHOR AUTHOR'S ORGANIZ ATION 03/07/2022 [facility] DATE CREATED AUTHOR AUTHOR'S ORGANIZ ATION 12/06/2022 [facility] DATE CREATED AUTHOR AUTHOR'S ORGANIZ ATION 09/04/2024 [facility] EPIC REASON FOR VISIT (unrecogniz ed section and content) Reason Comments New Patient Arthritis in hands Joint Pain Reason Comments New Patient Consult for fatty li kahty Specialty Diagnoses / Procedures Referred By Contact Referred To Contact Gastroenterology / GASTROENTEROLOGY Diagnoses Encounter for follow-up examination after completed treatment for conditions other than malignant neoplasm Fatty liver Procedures OFFICE/OUTPATIENT ESTABLISHED MOD MDM 30-39 MIN NEW DDI PATIENT Mike Saeed DO [address] [place] [id number] Radha Abdul MD [address] [place] [id number] Referral ID Status Reason Start Date Expiration Date Visits Re quested Visits Authorized [id number] Denied 10/30/2022 04/27/2023 1 0 Reason Comments Patient Education Assessment Specialty Diagnoses / Procedures Referred By Contac t Referred To Contact Nutrition Diagnoses Fatty liver Procedures CONSULT TO NUTRITION THERAPY MEDICAL NUTRITION ASSMT&IVNTJ INDIV EACH 15 KS MEDICAL NUTRITION ASSMT&IVNTJ INDIV EACH 15 [place] MEDICAL NUTRITION ASSMT&IVNTJ INDIV EACH 15 [place] MEDICAL NUTRITION ASSMT&IVNTJ INDIV EACH 15 [place] Radha Abdul MD [address] [place] [address] Referral ID Status Reason Start Date Expiration Date V isits Requested Visits Authorized [id number] Closed PCP Requested Referral 10/30/2022 01/28/2023 1 [...] or prosecute any alcohol or drug abuse patient.[facility] the event this information is protected by the Federal Confidentiality of Alcohol and Drug Abuse Patient Records regulations: The Federal rules restrict any use of the information to criminally investigate or prosecute any alcohol or drug abuse patient.[facility] the event this information is protected by the Federal Confidentiality of Alcohol and Drug Abuse Patient Records regulations: The Federal rules restrict any use of the information to criminally investigate or prosecute any alcohol or drug abuse patient.[facility] Care Teams (unrecognized sec tion and content) High School Band Teacher Relationship Specialty Start Date End Date Zeferino Flores PCP - General Internal Medicine 08/26/12 High School Band Teacher Relationship Specialty Start Date End Date Zeferino Flores PCP - General Internal Medicine 08/26/12 High School Band Teacher Relationship Specialty Start Date End Date Zeferino Flores PCP - General Internal Medicine 08/26/[address] [facility] [address] [place] [address] Registered Dietitian Nutrition 12/05/22 High School Band Teacher Relationship Specialty Start Date End Date Enrique Alba MD (Fax) PCP - General Family Medicine 09/16/22 High School Band Teacher Relationship Specialty Start Date End Date Enrique Alba MD (Fax) PCP - General Family Medicine 09/16/22 High School Band Teacher Relationship Specialty Start Date End Date Enrique Alba MD (Fax) PCP - General Family Medicine 09/16/22 High School Band Teacher Relationship Specialty Start Date End Date Enrique Alba MD (Fax) PCP - General Family Medicine 09/16/22 High School Band Teacher Relationship Specialty Start Date End Date Enrique Alba MD (Fax) PCP - General Family Medicine 09/16/22 High School Band Teacher Relationship Specialty Start Date End Date Enrique Alba MD (Fax) PCP - General Family Medicine 09/16/22 High School Band Teacher Relationship Specialty Start Date End Date Enrique Alba MD (Fax) PCP - General Family Medicine 09/16/22 High School Band Teacher Relationship Specialty Start Date End Date Enrique Alba MD (Fax) PCP - General Family Medicine 09/16/22 High School Band Teacher Relationship Specialty Start Date End Date Enrique Alba MD [address] [place] [address] PCP - General Family Medicine 09/16/22 High School Band Teacher Relationship Specialty Start Date End Date Enrique Alba MD [address] [place] [address] PCP - General Family Medicine 09/16/22 High School Band Teacher Relationship Specialty Start Date End Date Enrique Alba MD (Fax) PCP - General Family Medicine 09/16/22 High School Band Teacher Relationship Specialty Start Date End Date Enrique Alba MD (Fax) PCP - General Family Medicine 09/16/22 High School Band Teacher Relationship Specialty Start Date End Date Enrique Alba MD (Fax) PCP - General Family Medicine 09/16/22 High School Band Teacher Relationship Specialty Start Date End Date Enrique Alba MD (Fax) PCP - General Family Medicine 09/16/22 High School Band Teacher Relationship Specialty Start Date End Date Enrique Alba MD (Fax) PCP - General Family Medicine 09/16/22 High School Band Teacher Relationship Specialty Start Date End Date Enrique Alba MD (Fax) PCP - General Family Medicine 09/16/22 FOR RECORDS PERTAINING TO [...] BE BASED ON THE PRIMARY CLINICAL RECORDS. [facility]. provides no warranty or guarantee of the accuracy or completeness of information in this document.
== END 2024-10-30 08:07 | disposition home or self-care (01) ==
PROVIDERS: PCP Family Medicine
DX: E66.9 Obesity, unspecified (principal)
CPT/HCPCS: 36415; 83036

== ENCOUNTER 2024-11-03 07:30 | Outpatient (OUT) | payer OTHER, SELFPAY ==
--- OUTSIDE RECORDS SUMMARY | 2024-09-01 13:22 | XMS_ITS ---
Author Name Auto Generated Organization [facility] Care Team Providers Care Autocad Draftsman Name Role Phone LUIS EDUARDO LEVINE Attending Unavailable LUIS EDUARDO LEVINE Referring Unavailable REDDY ALBA Attending Unavailable REDDY ALBA Attending Unavailable REDDY ALBA Attending Unavailable REDDY ALBA Attending Unavailable REDDY ABLA Attending Unavailable BENITA DAVIS Attending Unavailable REDDY ALBA Attending Unavailable DEMARCUS RANKIN Attending Unavailable DEMARCUS RANKIN Referring Unavailable PROBLEMS No Problem Records Found PROCEDURES No Procedure Records Found RESULTS XR FOOT 3+ VIEWS LEFT Observed: 06/15/19 25 6:34 PM Status: F Source: [facility] EXAM: XR FOOT 3+ VIEWS LEFT HISTORY: Pain FINDINGS: There is slight narrowing of the 1st metatarsophalangeal articulation. Tarsometatarsal alignment is normal. There is mild flattening of the arch and slight midfoot arthrosis. There is a tiny plantar calcaneal enthesophyte. Slight hammertoe deformities are seen IMPRESSION: Mild flattening of the arch and slight midfoot arthrosis Small plantar calcaneal enthesophyte . Electronically Signed:Electronically signed by DA VAUGHN MD at 16-Jun-2024 09:39:44 AM [facility] XR KNEE 3 VIEWS LEFT Observed: 4 12:00 AM Status: F Source: [facility] XR KNEE 3 VIEWS LEFT Reason for exam: Left knee pain anterior/medial for two weeks, no injury Views: 3 Findings: A total knee arthroplasty shows normal alignment. There is no evidence of fracture and no abnormal lucency around the hardware. No bone lesions are identified. IMPRESSION: Unremarkable postop appearance. Dictated on: 04/19/2024 1:30 PM This report has been electronically signed and approved by the interpreting Radiologist. ALLERGIES No Allergies Records Found ENCOUNTERS ADMIT/DISCHARGE ACCOUNT NUMBER ADMITTING ENCOUNTER CLASS LOCATION SOURCE 09/01/2024/ 5 [id number] Ambulatory Building:[address] [facility] 08/02/2024/ 5 [id number] Ambulatory Building:[address] [facility] 06/15/2024/ 5 [id number] Ambulatory Building:[facility] 06/15/2024/ 5 [id number] Ambulatory Building:[facility] S SWS [facility] 04/17/2024/ 4 [id number] Ambulatory Building:[facility] 04/17/2024/ 4 [id number] Ambulatory Building:[facility] 04/05/2024/ 4 [id number] Ambulatory Building:[facility] [id number] [facility] 03/29/2024/ 4 [id number] Ambulatory Building:[facility] S BCP OB [facility] 03/11/2024/ 4 [id number] Ambulatory Building:[facility] [id number] [facility] 02/25/2024/ 4 [id number] Ambulatory Building:[facility] [id number] [facility] 12/16/2023/ 4 [id number] Ambulatory Building:[facility] [id number] [facility] PAYERS ENCOUNTER GUARANTOR PAYER SUBSCRIBER SOURCE 09/01/2024 NAIMA CHRIS: [place] [id number]: (HP) Primary Insurance:HEALTH SCOPEPolicy Number: [id number] e Date:2023-04-28 RACHELE CHRIS: [id number] [place] [id number] [facility] 08/02/2024 NAIMA [place]RIS: [place] [address]Odi: (HP) Primary Insurance:HEALTH SCOPEPolicy Number: [id number] e Date:2023-04-28 RACHELE CHRIS: [id number] [place] [address] [facility] 06/15/2024 NAIMA CHRIS: [place] [address]Fqy: (HP) Primary Insurance:HEALTH SCOPEPolicy Number: [id number] e Date:2023-04-28 RACHELE CHRIS: [id number] [place] [address] [facility] 06/15/2024 NAIMA CHRIS: [place] [address]Irp: (HP) Primary Insurance:HEALTH SCOPEPolicy Number: [id number] e Date:2023-04-28 RACHELE CHRIS: [id number] [place] [address] [facility] 04/17/2024 NAIMA CHRIS: [place] [address]Hfw: (HP) Primary Insurance:HEALTH SCOPEPolicy Number: [id number] e Date:2023-04-28 RACHELE CHRIS: [id number] [place] [address] [facility] 04/17/2024 NAIMA [place]RIS: [place] [address]Fvz: (HP) Primary Insurance:HEALTH SCOPEPolicy Number: [id number] e Date:2023-04-28 RACHELE CHRIS: [id number] [place] [address] [facility] 04/05/2024 NAIMA [place]RIS: [place] [address]Pum: (HP) Primary Insurance:HEALTH SCOPEPolicy Number: [id number] e Date:2023-04-28 RACHELE CHRIS: [id number] [place] [address] [facility] 03/29/2024 NAIMA [place]RIS: [place] [address]Mbr: (HP) Primary Insurance:HEALTH SCOPEPolicy Number: [id number] e Date:2023-04-28 RACHELE CHRIS: [id number] [place] [address] [facility] 03/11/2024 NAIMA [place]RIS: [place] [address]Uip: (HP) Primary Insurance:HEALTH SCOPEPolicy Number: [id number] e Date:2023-04-28 RACHELE CHRIS: [id number] [place] [address] [facility] 02/25/2024 NAIMA ALLENB: [place] [address]Uzt: (HP) Primary Insurance:HEALTH SCOPEPolicy Number: [id number] e Date:2023-04-28 RACHELE ALLENB: [id number] [place] [address] [facility] 12/16/2023 NAIMA [place]RIS: [place] [address]Cis: (HP) Primary Insurance:HEALTH SCOPEPolicy Number: [id number] Date:2022-08-26 RACHELE CHRIS: [id number] [place] [address] [facility] EP[facility]
--- NOTE | 2024-11-03 06:45 | NM_ITS ---
Patient Name: NAIMA HERNANDEZ MR#: [id number] : 1970 Exam Date: 11/03/2024 Ordering Doctor: DR REDDY ALBA . RADIOLOGY REPORT PROCEDURE: NM KIMBERLYN PERF SPECT REST STR COMPARISON: None. INDICATIONS: ANGINAL EQUIVALENT, SINUS TACHYCARDIA, MULTIFOCAL PVC'S TECHNIQUE: Exam Description: Stress/Rest two-day protocol gated SPECT Rest Imagin.8 mCi Tc-99m Cardiolite IV on 11/03/2024 Stress Imaging 25.5 mCi Tc-99m Cardiolite IV on 11/04/2024 Exercise Protocol: 0.4 mg Lexiscan given IV Heart Rate (bpm): Rest: 100 Max: 110 PMHR: 66 Blood Pressure: Rest: 146/80 Max: 146/86 Symptoms: Rest and peak stress ECG findings were pending, and the exercise portion of the study was pending per attending physician [facility]. For more details, please see separate cardiac stress test report. FINDINGS: QUALITY OF STUDY: Good PERFUSION DEFECT: LOCATION: N/A SIZE: N/A SEVERITY: N/A TYPE: N/A WALL MOTION: Normal wall motion LV SIZE: 108 mL. TID / TCD: 1.0 LVEF: Calculated EF 57%. SUMMARY: Myocardial perfusion imaging study is normal CONCLUSION: 1. Myocardial perfusion study is normal with soft tissue attenuation 2. Global left ventricular systolic function is normal 3. No evidence of significant transient ischemic dilatation Dictated by: Vianney Johnston M.D. on 11/04/2024 at 16:10 Approved by: Vianney Johnston M.D. on 11/04/2024 at 16:13
== END 2024-11-03 07:31 | disposition home or self-care (01) ==
LOC: NM 07:30
PROVIDERS: PCP Family Medicine; Visit Provider Family Medicine
DX: I20.89 Other forms of angina pectoris (principal); R00.0 Tachycardia, unspecified; I49.3 Ventricular premature depolarization; Z96.653 Presence of artificial knee joint, bilateral; Z74.09 Other reduced mobility; G89.29 Other chronic pain; E66.01 Morbid (severe) obesity due to excess calories; E78.2 Mixed hyperlipidemia; I10 Essential (primary) hypertension
CPT/HCPCS: 78452; A9500

== ENCOUNTER 2024-11-04 08:44 | Outpatient (OUT) | payer OTHER, SELFPAY ==
--- OUTSIDE RECORDS SUMMARY | 2024-11-04 08:47 | XMS_ITS | Encounter Summary ---
Author Organization [facility] Address [address] [place] [address] Care Team Providers Care Crocheter Hand Name Role Phone Enrique Burgos MD Primary Care Provider [phone] Encounter Details Date Type Department Care Team (Late st Contact Info) Description 03/09/2024 Abstract [facility] [address] 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
--- OUTSIDE RECORDS SUMMARY | 2024-11-04 08:47 | XMS_ITS | Encounter Summary ---
Author Organization [facility] Address [address] [place] [address] Care Team Providers Care Seismograph Supervisor Name Role Phone Enrique Burgos MD Primary Care Provider Encounter Details Date Type Department Care Team (Late st Contact Info) Description 04/09/2023 Orders Only [facility] FM [address] [place] [address] Enrique Burgos MD [address] [place] [address] [address] [place] [address] Social History Tobacco Use Types Packs/Day Years [...] week 09/18/2022 How often do you attend [facility] or cheondoism services? More than 4 times per year [...] Recorded Patient Health Questionnaire-2 Score 0 11/14/2022 [facility] Occup[facility] ional Health - Occupational [...] Office Visit [facility] [address] [place] [address] Janey Savage PA [address] [facility] [place] [address] documented as of this encounter Visit Diagnoses Not on filedocumented in this encounter Care Teams Seismograph Supervisor Relationship Specialty Start Date End Date Enrique Burgos MD PCP - General Family Medicine 09/16/22 documented as of this encounter
--- OUTSIDE RECORDS SUMMARY | 2024-11-04 08:47 | XMS_ITS | Encounter Summary ---
Author Organization [facility] Address [address] [place] [address] Care Team Providers Care Mica Miner Name Role Phone Enrique Burgos MD Primary Care Provider Encounter Details Date Type Department Care Team (Late st Contact Info) Description 03/02/2024 Orders Only [facility] [address] [place] [address] RachelJuly, Menopausal and female climacteric states; Osteoporosis [...] Recorded Patient Health Questionnaire-2 Score 0 11/14/2022 [facility] - Occupational Stress [...] time in the past 12 m [facility], were you homeless or living in a [...] Date 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, 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 Not on file Not on file documented as of this encounter Plan of Treatment Upcoming Encounters Date Type Department Care Team (Late st Contact Info) Description 04/04/2025 3:00 PM EST Office Visit [facility] [address] [place] [address] Janey Savage PA [address] [facility] [address] documented as of this encounter Visit Diagnoses Diagnosis Menopausal and female climacteric states Osteoporosis screening Special screening for osteoporosis Encounter for follow-up examination after completed treatment for conditions other than malignant neoplasm Screening mammogram for breast cancer documented in this encounter Care Teams Mica Miner Relationship Specialty Start Date End Date Enrique Burgos MD (Fax) PCP - General Family Medicine 09/16/22 documented as of this encounter
--- OUTSIDE RECORDS SUMMARY | 2024-11-04 08:47 | XMS_ITS | Encounter Summary ---
Author Organization [facility] Address [address] [place] [address] Care Team Providers Care Digital Court Reporter Name Role Phone Enrique Burgos MD Primary Care Provider [phone] Reason for Visit * Reason Comments Med Refill Encounter Details Date Type Department Care Team (Late st Contact Info) Description 01/05/2023 Refill [facility] [address] [place] [address] Enrique Burgos MD [address] [place] [address] [address] [place] [address] Glucose intolerance (impaired glucose tolerance) Social History [...] How often do you attend chur or judaism services? More than 4 times per year 09/18/2022 Do you belong to any clubs o r organizations such as buddhist groups, unions, fraternal or athletic groups, or [...] Patient Health Questionnaire-2 Score 0 11/14/2022 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 Not on file Not on file documented as of this encounter Plan of Treatment Upcoming Encounters Date Type Department Care Team (Late st Contact Info) Description 04/04/2025 3:00 PM EST Office Visit [facility] [address] [facility] [place] [address] Janey Savage PA [address] [facility] [place] [address] documented as of this encounter Visit Diagnoses Diagnosis Glucose intolerance (impaired glucose tolerance) Impaired glucose tolerance test documented in this encounter Care Teams Digital Court Reporter Relationship Specialty Start Date End Date Enrique Burgos MD PCP - General Family Medicine 09/16/22 documented as of this encounter
--- OUTSIDE RECORDS SUMMARY | 2024-11-04 08:47 | XMS_ITS | Encounter Summary ---
Author Organization [facility] Address [address] [place] [address] Care Team Providers Care Glaze Supervisor Name Role Phone Enrique Burgos MD Primary Care Provider [phone] Encounter Details Date Type Department Care Team (Late st Contact Info) Description 10/30/2024 Clinisync Result Encounter [facility] External Department Unsolicited Provider, Generic External Data Social History Tobacco Use Types Packs/Day Years [...] Recorded Patient Health Questionnaire-2 Score 0 08/02/2024 [facility] - Occupational Stress Questionnaire Answer Date [...] place to sleep or slept in a assisted (including now)? No 09/18/2022 Housing Stability Vital Sign Answer Jules e Recorded In the last 12 months, was t here a time when you were not able to pay the mortgage or rent on time? No 12/15/2023 In the past 12 months, how m any times have you moved where you were living? 0 12/15/2023 At any time in the past 12 m [facility], were you homeless or living in a assisted (including now)? 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 Not on file Not on file documented as of this encounter Plan of Treatment Upcoming Encounters Date Type Department Care Team (Late st Contact Info) Description 04/04/2025 3:00 PM EST Office Visit [facility] [address] [facility] [place] [address] Janey Savage PA [address] [facility] [place] [address] documented as of this encounter Procedures Procedure Name Priority Date/Time Associated Diagnosis Comments MLR HEMOGLOBIN A1C Routine 10/30/2024 8: 17 AM EDT documented in this encounter Results * (ABNORMAL) MLR HEMOGLOBIN A1C (10/30/2024 8:17 AM EDT) GLYCOHEMOGLOBIN A1C 7.4(H) 4.5 - 6.2 % TB Comment: ADA RECOMMENDED LIMIT 4.0 - 6.0 ADA THERAPEUTIC TARGET < 7.0 ACTION SUGGESTED > 7.0 ESTIMATED AVERAGE GLUCOSE 166 mg/dL TB 10/30/2024 8:17 AM EDT 10/30/2024 8:18 AM EDT Narrative [facility] - 10/30/2024 8:40 AM EDT us Generic External Data Provider [facility] documented in this encounter Visit Diagnoses Not on filedocumented in this encounter Care Teams Glaze Supervisor Relationship Specialty Start Date End Date Enrique Burgos MD PCP - General Family Medicine 09/16/22 documented as of this encounter
--- OUTSIDE RECORDS SUMMARY | 2024-11-04 08:47 | XMS_ITS | Encounter Summary ---
Author Organization [facility] Address [address] [place] [address] Care Team Providers Care Route Service Representative Name Role Phone Enrique Burgos MD Primary Care Provider Encounter Details Date Type Department Care Team (Late st Contact Info) Description 10/27/2024 Orders Only [facility] [address] [place] [address] Enrique Burgos MD 112 [facility] [address] [place] [address] Social History Tobacco Use Types Packs/Day Years [...] How often do you attend chur or hinduism services? More than 4 times per year 12/15/2023 Do you belong to any clubs o r organizations such as nondenominational groups, unions, fraternal or athletic groups, or [...] Recorded Patient Health Questionnaire-2 Score 0 08/02/2024 [facility] of Occupat ionid Health - Occupational Stress Questionnaire Answer Date [...] place to sleep or slept in a detention (including now)? No 09/18/2022 Housing Stability Vital Sign Answer Jules e Recorded In the last 12 months, was t here a time when you were not able to pay the mortgage or rent on time? No 12/15/2023 In the past 12 months, how m any times have you moved where you were living? 0 12/15/2023 At any time in the past 12 m [facility], were you homeless or living in a detention (including now)? 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
--- OUTSIDE RECORDS SUMMARY | 2024-11-04 08:47 | XMS_ITS | Encounter Summary ---
Author Organization [facility] Address [address] [place] [address] Care Team Providers Care Senior Hr Business Partner Name Role Phone Enrique Burgos MD Primary Care Provider Encounter Details Date Type Department Care Team (Late st Contact Info) Description 03/08/2024 Orders Only [facility] [address] [place] [address] Enrique Burgos MD 112 [facility] [address] [place] [address] Social History Tobacco Use Types Packs/Day Years [...] How often do you attend chur or yazdanism services? 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
--- OUTSIDE RECORDS SUMMARY | 2024-11-04 08:47 | XMS_ITS | Encounter Summary ---
Author Organization [facility] Address [address] [place] [address] Care Team Providers Care Die Designer Apprentice Name Role Phone Enrique Burgos MD Primary Care Provider [phone] Encounter Details Date Type Department Care Team (Late st Contact Info) Description 11/03/2023 Orders Only [facility] [address] [place] [address] Enrique Burgos MD 112 [facility] [address] [place] [address] Social History Tobacco Use Types Packs/Day Years [...] How often do you attend chur or sabianism services? More than 4 times per year 09/18/2022 Do you belong to any clubs o r organizations such as bahai groups, unions, fraternal or athletic groups, or [...] Recorded Patient Health Questionnaire-2 Score 0 11/14/2022 [facility] Questionnaire Answer Date [...] place to sleep or slept in a correction (including now)? 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 [address] documented as of this encounter Visit Diagnoses Not on filedocumented in this encounter Care Teams Die Designer Apprentice Relationship Specialty Start Date End Date Enrique Burgos MD PCP - General Family Medicine 09/16/22 documented as of this encounter
--- OUTSIDE RECORDS SUMMARY | 2024-11-04 08:47 | XMS_ITS | Encounter Summary ---
Author Organization [facility] Address [address] [place] [address] Care Team Providers Care Fruit Packer Name Role Phone Enrique Burgos MD Primary Care Provider Encounter Details Date Type Department Care Team (Late st Contact Info) Description 01/28/2023 Abstract [facility] FM [address] [place] [address] Enrique Burgos MD [address] [place] [address] [address] [place] [address] Social History Tobacco Use Types [...] week 09/18/2022 How often do you attend [facility]? 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
--- OUTSIDE RECORDS SUMMARY | 2024-11-04 08:47 | XMS_ITS | Encounter Summary ---
Author Organization [facility] Address [address] [place] [address] Care Team Providers Care Cable Tv Installer Name Role Phone Enrique Burgos MD Primary Care Provider [phone] Encounter Details Date Type Department Care Team (Late st Contact Info) Description 03/23/2024 Orders Only [facility] [address] [place] [address] Charisse Elmore LPN [address] [facility] [place] [place] [id number] Social History Tobacco Use Types Packs/Day Years [...] How often do you attend chur or nondenominational services? More than 4 times per year 12/15/2023 Do you belong to any clubs o r organizations such as yarsanism groups, unions, fraternal or athletic groups, or [...] Score 0 11/14/2022 [facility] - Occupational Stress Questionnaire Answer Date [...] place to sleep or slept in a [place] health care facility (including now)? No 09/18/2022 Housing Stability Vital Sign Answer Jules e Recorded In the last 12 months, was t here a time when you were not able to pay the mortgage or rent on time? No 12/15/2023 In the past 12 months, how m any times have you moved where you were living? 0 12/15/2023 At any time in the past 12 m [facility], were you homeless or living in a [place] health care facility (including now)? 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 file Not on file Not on file documented as of this encounter Plan of Treatment Upcoming Encounters Date Type Department Care Team (Late st Contact Info) Description 04/04/2025 3:00 PM EST Office Visit [facility] [address] [place] [address] Janey Savage PA [address] [facility] [place] [address] documented as of this encounter Procedures Procedure Name Priority Date/Time Associated Diagnosis Comments PAP SMEAR Routine 03/29/2024 12:00 AM EST PAP SMEAR Routine 11/01/2022 12:00 AM EDT documented in this encounter Results * Pap Smear (03/29/2024 12:00 AM EST) Swab Cervical swab / Unknown Bonilla Nurse [facility] Ob LAB CYTOLOGY ORDERABLES Final Result Performing Organization Address [facility] Co de Phone Number EXTERNAL LAB * Pap Smear (11/01/2022 12:00 AM EDT) Swab Cervical swab / Unknown Bonilla Nurse [facility] Ob LAB CYTOLOGY ORDERABLES Final Result EXTERNAL LAB documented in this encounter Visit Diagnoses Not on filedocumented in this encounter Care Teams Cable Tv Installer Relationship Specialty Start Date End Date Enrique Burgos MD PCP - General Family Medicine 09/16/22 documented as of this encounter
--- OUTSIDE RECORDS SUMMARY | 2024-11-04 08:47 | XMS_ITS | Encounter Summary ---
Author Organization [facility] Address [address] [place] [address] Care Team Providers Care Fitter Machinist Name Role Phone Enrique Burgos MD Primary Care Provider [phone] Encounter Details Date Type Department Care Team (Late st Contact Info) Description 08/16/2024 Orders Only [facility] [address] [place] [address] RachelJuly, Screening mammogram for breast cancer; Menopausal [...] Recorded Patient Health Questionnaire-2 Score 0 08/02/2024 [facility] of Occupat iontn Health - Occupational Stress Questionnaire Answer Date [...] any time in the past 12 m [facility], were you homeless or living in [...] 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, 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 Not on file Not on file documented as of this encounter Plan of Treatment Upcoming Encounters Date Type Department Care Team (Late st Contact Info) Description 04/04/2025 3:00 PM EST Office Visit [facility] OB [address] [place] [address] Janey Savage PA [address] [facility] [place] [address] documented as of this encounter Visit Diagnoses Diagnosis Screening mammogram for breast cancer Menopausal and female climacteric states Osteoporosis screening Special screening for osteoporosis Encounter for follow-up examination after completed treatment for conditions other than malignant neoplasm documented in this encounter Care Teams Fitter Machinist Relationship Specialty Start Date End Date Enrique Burgos MD (Fax) PCP - General Family Medicine 09/16/22 documented as of this encounter
--- OUTSIDE RECORDS SUMMARY | 2024-11-04 08:47 | XMS_ITS | Encounter Summary ---
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 Limited mobility Other chronic pain Morbid obesity (CMS-HCC) Mixed dyslipidemia Primary hypertension Procedures STRESS TEST Enrique Wilcox MD 112 [facility] [address] [place] [address] Phone: tel: fax: Referral ID Status Reason Start Date Expiration Date V isits Requested Visits Authorized [id number] Authorized 10/27/2024 04/25/2025 1 1 Reason for Visit * Reason Onset Date Comments Care Coordination 10/27/2024 Encounter Details Date Type Department Care Team (Late st Contact Info) Description 10/27/2024 Telephone [facility] FM [address] [facility] [address] [place] [address] Enrique Burgos MD 112 [facility] 100 [place] [address] (Fax) Care Coordination Social History Tobacco Use [...] How often do you attend chur or anabaptist services? More than 4 times per year 12/15/2023 Do you belong to any clubs o r organizations such as yarsani groups, unions, fraternal or athletic groups, or [...] Recorded Patient Health Questionnaire-2 Score 0 08/02/2024 [facility] [place] of Occupat ional Health - Occupational Stress [...] place to sleep or slept in a nursing home (including now)? No 09/18/2022 Housing Stability [...] any time in the past 12 m [facility], were you homeless or living in a nursing home (including now)? No 12/15/2023 Education Answer [...] PM EST Office Visit [facility] OB [address] [place] [address] [place] [address] Janey Savage PA [address] [facility] [place] [address] Scheduled Orders Name Type Priority Associated Diagnoses [...] hypertension documented in this encounter Care Teams Systems Consultant Relationship Specialty Start Date End Date Enrique Burgos MD (Fax) PCP - General Family Medicine 09/16/22 documented as of this encounter
--- OUTSIDE RECORDS SUMMARY | 2024-11-04 08:47 | XMS_ITS | Encounter Summary ---
Author Organization [facility] Address [address] [place] [address] Care Team Providers Care Derrick Engineer Name Role Phone Enrique Burgos MD Primary Care Provider Encounter Details Date Type Department Care Team (Late st Contact Info) Description 12/25/2023 Orders Only [facility] [address] [place] [address] Enrique Burgos MD 112 [facility] [address] [place] [address] Social History Tobacco Use Types Packs/Day Years [...] How often do you attend chur or anabaptism services? 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
--- OUTSIDE RECORDS SUMMARY | 2024-11-04 08:47 | XMS_ITS | Clinical Summary ---
Author Organization [facility] Address [address] [place] [address] Care Team Providers Care Wastewater Plant Operator Name Role Phone Enrique Burgos MD Primary [...] Encounters Date Type Department Care Team Description 10/30/2024 Clinisync Result Encounter [facility] External Department Unsolicited Provider, Generic External Data 10/27/2024 Telephone [facility] [address] [phone] Enrique Burgos MD Care Coordination 10/27/2024 Orders Only [facility] [address] [place] [address] Enrique Burgos MD 10/27/2024 Clinisync Result Encounter NOMS External Department Unsolicited Enrique Burgos MD 09/01/2024 1:45 PM EDT Office Visit [facility] [address] [place] [address] Enrique Burgos MD Palpitations (Primary Dx); Tachycardia 09/01/2024 Bamboo flowsheet [facility] [address] [place] [address] Enrique Burgos MD 09/01/2024 Travel 08/31/2024 Travel 08/16/2024 Orders Only [facility] [address] [place] [address] Rachel July, MA Screening mammogram for breast cancer; Menopausal and female climacteric states; Osteoporosis screening; Encounter for follow-up examination after completed treatment for conditions other than malignant neoplasm from Last 3 Months Immunizations Immunization Administration [...] any clubs o r organizations such as latter day groups, unions, fraternal or athletic groups, or [...] Recorded Patient Health Questionnaire-2 Score 0 08/02/2024 [facility] of Occupat ional Health - [...] any time in the past 12 m [facility], were you homeless or living in a [...] 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, 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 on file Not on file Not [...] EST Office Visit [facility] OB [address] [facility] [place] [address] Janey Savage PA [address] [facility] [place] [address] Health Maintenance Due Date Last Done Comments CT Colonography 1970 Colonoscopy 1970 FIT 1970 FOBT 1970 Sigmoidoscopy 1970 HPV/Cotest 03/18/2024 03/18/2019 Influenza Vaccine (#1) 2024 4, 01/20/2023, 01/15/2022, Additional history exists Mammogram 03/05/2025 03/05/2024, 10/26, 07/12/2020, Additional history exists Colorectal Cancer Screening 09/18/2026 FIT-DNA 09/18/2026 09/19/2023 Cervical Cancer Screening 03/29/2027 Pap Smear 03/29/2027 03/29/2024, 11/01/2022 Procedures Procedure Name Priority Date/Time Associated Diagnosis Comments MLR HEMOGLOBIN A1C Routine 10/30/2024 8: 17 AM EDT HOLTER MONITOR Routine 10/27/2024 10:53 AM EDT [...] THINPREP TIS PAP REFLEX HPV MRNA E6/E7 (59180) Routine 03/18/2019 from Last 3 Months or Most Recently Relevant to Health Maintenance Results * (ABNORMAL) MLR HEMOGLOBIN A1C (10/30/2024 [...] External Data Provider [facility] F inal Result [facility] * Holter monitor (10/27/2024 10:53 AM EDT) Enrique Burgos MD CV CARDIAC SERVICES PROCEDUR ES Final Result Performing Organization Address City/[facility]/ZIP Co de Phone Number [facility] [address] [place] [address], * METRO IRON AND TIBC (10/27/2024 7:21 AM EDT) [facility] IRON 65.0 50.0 - 170.0 ug/dL [facility] TOTAL IRON BINDING CAPACITY 299.0 250.0 - 450.0 ug/dL [facility] PERCENT IRON SATURATION 21.7 % [facility] 10/27/2024 7:21 AM EDT 10/27/2024 7:37 AM EDT Narrative [facility] - 10/27/2024 8:36 AM EDT Enrique Burgos MD [facility] Final Result Performing Organization Address [facility] Co de Phone Number [facility] * ALL CBC WITH AUTO DIFF (10/27/2024 [...] EDT Enrique Burgos MD [facility] Final Result Performing Organization Address City/[facility] Co de Phone Number [facility] TB * Pap Smear (03/29/2024 12:00 AM EST) Swab Cervical swab / Unknown Bonilla Page [facility] Ob LAB CYTOLOGY ORDERABLES Final Result Performing Organization Address City/State/[facility] Co de Phone Number EXTERNAL LAB * MM TOMOSYNTHESIS SCREENING BI (03/05/2024 11:04 AM EST) Anatomical Region Laterality Modality Other 03/05/2024 11:0 4 AM EST Narrative 03/05/2024 11:05 AM EST The [address] [address] Mammography Report Signed Patient: Naima Hernandez MR#: [id number] : 1970 Acct:[id number] Age/Sex: 53 / F ADM Date: 03/05/24 Loc: MAMMO Attending Dr: ENRIQUE BURGOS Ordering Physician: ENRIQUE BURGOS Results: Date of Service: 03/05/24 Follow Up: Procedure(s): MM tomosynthesis screening BI Accession Number(s): [id number] cc: ENRIQUE BURGOS Patient Name: NAIMA HERNANEDZ MR#: [id number] : 1970 Exam Date: 03/05/2024 Ordering Doctor: [...] Treatments None Family Cancers None LOCATION: The [facility] BREAST COMPOSITION: There are scattered areas [...] Signed By: 03/05/24 1105 DD/ 1104 TD/TT: Head Knitting Machine Fixer: Procedure Note Radiology, Radiologist, MD - 03/05/2024 [place] [address] Mammography Report Signed Patient: Naima Hernandez MMR#: [id number] : 1970Acct:[id number] Age/Sex: 53 / FADM Date: 03/05/24 Loc: MAMMO Attending Dr: ENRIQUE BURGOS Ordering Physician: ENRIQUE BURGOSResults: Date of Service: 03/05/24Follow Up: Procedure(s): MM tomosynthesis screening BI Accession Number(s): [id number] cc: ENRIQUE BURGOS Patient Name: NAIMA HERNANDEZ MR#: [id number] : 1970 Exam Date: 03/05/2024 Ordering Doctor: [...] Treatments None Family Cancers None LOCATION: [facility] BREAST COMPOSITION: There are scattered areas [...] M.D. Signed By:03/05/24 1105 DD/ 1104 TD/TT: Head Knitting Machine Fixer: Enrique Burgos MD [facility] IMAGING Final Resu lt * Cologuard?? colon cancer screening (09/19/2023 12:30 PM EDT) NONINV COLON CA DNA+OCC BLD SCRN STL-IMP Negative Negative 09/25/2023 9:11 AM EDT [facility] (CLIA #:[id number]) Comment: NEGATIVE TEST RESULT. A negative Cologuard [...] screened with both Cologuard and colonoscopy. (Jonel Vincent. et al, N Engl J Med 2014;370(14):7964-0628) The normal value (reference range) for this [...] Cancer Society Guideline for Colorectal Cancer Screening: https://www.cancer.org/cancer/nbqps-cdnikx-gtkirl/voyvcdwbj-srrwacebu-fnzgpdq/ac s-rec ommendations.html.; Dave MENDOSA, [place] MARK, Hernesto FelizK, Colorectal Cancer Screening: Recommendations for Physicians and Patients from the U.S. Multi-Society Task Force on Colorectal Cancer Screening , Am J Gastroenterology 2017; 112:0610-5563. TEST DESCRIPTION: Composite algorithmic analysis of stool [...] screened with both Cologuard and colonoscopy. (Jonel Vincent. et al, N Engl J Med 2014;370(14):7936-2108.) Cologuard may produce a false negative or [...] can be accessed at the following location: www.[employer]/results. Additional description of the Cologuard test process, warnings and precautions can be found at www.[employer].com. Stool specimen (specimen) 09/19/2023 12:30 PM EDT 09/20/2023 7:56 AM EDT Enrique Burgos MD LAB MOLECULAR DIAGNOSTICS OR DERABLES Final Result [facility] (CLIA #:[id number]) [place] [place] [address], * THINPREP TIS PAP REFLEX HPV MRNA E6/E7 (87217) (03/18/2019) CLINICAL INFORMATION: None given [facility] [...] LAB Comment: [facility], CT(ASCP) CT screening location: [facility], [address] [place] [address], [place] [address]. COMMENT SEE COMMENT [facility] LEG ACY EXTERNAL [...] LABS Final Resul t Performing Organization Address City/State/[facility] Co de Phone Number [facility] EXTERNAL LAB from Last 3 Months or Most Recently Relevant to Health Maintenance Insurance [employer] Care Teams Wastewater Plant Operator Relationship Specialty Start Date End Date Enrique Burgos MD (Fax) PCP - General Family Medicine 09/16/22
--- OUTSIDE RECORDS SUMMARY | 2024-11-04 08:47 | XMS_ITS | Encounter Summary ---
Author Organization [facility] Address [address] [place] [address] Care Team Providers Care Collections Assistant Name Role Phone Enrique Alba MD Primary Care Provider [phone]- [phone] Encounter Details Date Type Department Care Team (Late st Contact Info) Description 03/05/2024 Clinisync Result Encounter [facility] External Department Unsolicited Enrique Alba MD [address] [place] [address] Social History Tobacco Use Types Packs/Day Years [...] any clubs o r organizations such as sabianism groups, unions, fraternal or athletic groups, or [...] place to sleep or slept in a care home (including now)? No 09/18/2022 Housing Stability [...] any time in the past 12 m [facility], were you homeless or living in a care home (including now)? 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 Not on file Not on file documented as of this encounter Plan of Treatment Upcoming Encounters Date Type Department Care Team (Late st Contact Info) Description 04/04/2025 3:00 PM EST Office Visit [facility] [address] [place] [address] [place] [phone] Janey Savage PA [address] [place] [address] Dr [place] [id number] documented as of this encounter Procedures Procedure Name Priority Date/Time Associated Diagnosis Comments XR DEXA AXIAL SKELETON 03/05/2024 7:37 AM EST documented in this encounter Results * XR DEXA AXIAL SKELETON (03/05/2024 7:37 AM EST) Anatomical Region Laterality Modality Other 03/05/2024 7:37 AM EST Narrative 03/05/2024 7:39 AM EST [address] [address] XRay Report Signed Patient: Naima Hernandez MR#: [id number] : 1970 Acct:[id number] Age/Sex: 53 / F ADM Date: 03/05/24 Loc: MAMMO Attending Dr: ENRIQUE ALBA Ordering Physician: ENRIQUE ALBA Date of Service: 03/05/24 Procedure(s): XR DEXA axial skeleton Accession Number(s): [id number] cc: NERIQUE ALBA [address] [address] Patient Name: NAIMA HERNANDEZ MRN: [id number] date: 1970 Sex: F Assigned Patient Location: MAMMO Current Patient Location: MAMMO Accession/Order Number: [id number] Exam Date: 03/05/2024 07:00 Report Date: 03/05/2024 [...] prevention and treatment of osteoporosis. Osteoporos Int. 2021;33(10):6233-8979. doi: 10.1007/q83533-786-44850-h. Epub 2021Aug 23. Erratum in: Osteoporos Int. 2021Nov 22;: PMID: [id number]; PMCID: [id number]. Electronically authenticated by: VIKAS NEGRON Date: 03/05/2024 07:37 Dictated By: Vikas Negron M.D. Signed By: 03/05/24 0739 DD/ TD/TT: Layout Man: Procedure Note Radiology, Radiologist, - 03/05/[address] [address] XRay Report Signed Patient: Naima Hernandez MMR#: [id number] : 1970Acct:[id number] Age/Sex: 53 / FADM Date: 03/05/24 Loc: MAMMO Attending Dr: ENRQIUE ALBA Ordering Physician: ENRIQUE ALBA Date of Service: 03/05/24 Procedure(s): XR DEXA axial skeleton Accession Number(s): [id number] cc: ENRIQUE ALBA [address] [address] Patient Name: NAIMA HERNANDEZ MRN: [id number] date: 1970 Sex: F Assigned Patient Location: MAMMO Current Patient Location: [facility] Accession/Order Number: [id number] Exam Date: 03/05/2024 07:00 Report Date: 03/05/2024 [...] 10-year hip fracture risk >= 3% or [id number] major osteoporosis-related fracture risk >= 20% (i.e., [...] to prevention and treatment of osteoporosis.Osteoporos Int. 2021;33(10):7945-7897. doi: 10.1007/k58936-034-00069-h. Ep. Erratum in: Osteoporos Int. 2021Nov 22;: PMID: [id number]; PMCID: [id number]. Electronically authenticated by: VIKAS NEGRON Date: 03/05/2024 07:37 Dictated By: Vikas Negron M.D. Signed By:03/05/2439 DD/ TD/TT: Layout Man: Enrique Alba MD [facility] Final Resu lt documented in this encounter Visit Diagnoses Not on filedocumented in this encounter Care Teams Collections Assistant Relationship Specialty Start Date End Date Enrique Alba MD PCP - General Family Medicine 09/16/22 documented as of this encounter
--- OUTSIDE RECORDS SUMMARY | 2024-11-04 08:47 | XMS_ITS | Encounter Summary ---
Author Organization [facility] Address [address] [place] [address] Care Team Providers Care Parachute Panel Joiner Name Role Phone Enrique Alba MD Primary Care Provider [phone]- [phone] Encounter Details Date Type Department Care Team (Late st Contact Info) Description 03/05/2024 Clinisync Result Encounter [facility] External Department Unsolicited Enrique Alba MD [address] [place] [address] Social History Tobacco Use Types Packs/Day Years [...] How often do you attend chur or jewish services? More than 4 times per year [...] Recorded Patient Health Questionnaire-2 Score 0 11/14/2022 [facility] - Occupational [...] any time in the past 12 m 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 Not on file Not on file documented as of this encounter Plan of Treatment Upcoming Encounters Date Type Department Care Team (Late st Contact Info) Description 04/04/2025 3:00 PM EST Office Visit [facility] [address] [place] [address] [place] [phone] Janey Savage PA [address] [place] [address] [place] [address] documented as of this encounter Procedures Procedure Name Priority Date/Time Associated Diagnosis Comments MM TOMOSYNTHESIS SCREENING BI 03/05/2024 11:04 AM EST documented in this encounter Results * MM TOMOSYNTHESIS SCREENING BI (03/05/2024 11:04 AM EST) Anatomical Region Laterality Modality Other 03/05/2024 11:0 4 AM EST Narrative 03/05/2024 11:05 AM EST The [address] [address] Mammography Report Signed Patient: Naima Hernandez MR#: [id number] : 1970 Acct:[id number] Age/Sex: 53 / F ADM Date: 03/05/24 Loc: MAMMO Attending Dr: ENRIQUE ALBA Ordering Physician: ENRIQUE ALBA Results: Date of Service: 03/05/24 Follow Up: Procedure(s): MM tomosynthesis screening BI Accession Number(s): [id number] cc: ENRIQUE ALBA Patient Name: NAIMA HERNANDEZ MR#: [id number] : 1970 Exam Date: 03/05/2024 Ordering Doctor: [...] Treatments None Family Cancers None LOCATION: The [facility] BREAST COMPOSITION: There are scattered areas [...] Signed By: 03/05/24 1105 DD/ 1104 TD/TT: Burr Machine Operator: Procedure Note Radiology, Radiologist, MD - 03/05/2024 [place] [address] Mammography Report Signed Patient: Naima Hernandez MMR#: [id number] : 1970Acct:[id number] Age/Sex: 53 / FADM Date: 03/05/24 Loc: MAMMO Attending Dr: ENRIQUE ALBA Ordering Physician: ENRIQUE ALBAResults: Date of Service: 03/05/24Follow Up: Procedure(s): MM tomosynthesis screening BI Accession Number(s): [id number] cc: ENRIQUE ALBA Patient Name: NAIMA HERNANDEZ MR#: [id number] : 1970 Exam Date: 03/05/2024 Ordering Doctor: [...] Treatments None Family Cancers None LOCATION: The [facility] BREAST COMPOSITION: There are scattered areas [...] M.D. Signed By:03/05/24 1105 DD/ 1104 TD/TT: Burr Machine Operator: us Enrique Alba MD [facility] Final Resu lt documented in this encounter Visit Diagnoses Not on filedocumented in this encounter Care Teams Parachute Panel Joiner Relationship Specialty Start Date End Date Enrique Alba MD PCP - General Family Medicine 09/16/22 documented as of this encounter
--- OUTSIDE RECORDS SUMMARY | 2024-11-04 08:47 | XMS_ITS | Encounter Summary ---
Author Organization [facility] Address [address] [place] [address] Care Team Providers Care Boarder Hand Name Role Phone Enrique Burgos MD Primary Care Provider [phone]- [phone] Encounter Details Date Type Department Care Team (Late st Contact Info) Description 10/27/2024 Clinisync Result Encounter [facility] External Department Unsolicited Enrique Burgos MD [address] [place] [address] Social History Tobacco Use Types Packs/Day Years [...] How often do you attend chur or sikhism services? More than 4 times [...] Patient Health Questionnaire-2 Score 0 08/02/2024 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 Not on file Not on file documented as of this encounter Plan of Treatment Upcoming Encounters Date Type Department Care Team (Late st Contact Info) Description 04/04/2025 3:00 PM EST Office Visit [facility] [address] [place] [address] [place] [address] Janye Savage PA [address] [place] [address] [place] [address] documented as of this encounter Procedures Procedure [...] Enrique Burgos MD [facility] Final Result [facility] * ALL CBC WITH AUTO DIFF [...] EDT Enrique Burgos MD [facility] documented in this encounter Visit Diagnoses Not on filedocumented in this encounter Care Teams Boarder Hand Relationship Specialty Start Date End Date Enrique Burgos MD PCP - General Family Medicine 09/16/22 documented as of this encounter
--- OUTSIDE RECORDS SUMMARY | 2024-11-04 09:08 | XMS_ITS | CCD ---
Author Organization [facility] Care Team Providers Care Trap Operator Name Role Phone ANJALI, DR BLAKELY Admitting [...] MONTRELL [employer] Unavailable Ernie Fuller Unavailable [phone] Enrique Alba Primary Care Unavailable Ernie Fuller Attending UnavailErnie Moreno Admitting Unavailabl Ben Gooden Unavailable Pollo Florest E Primary Care Provider UnavailTaylor Nava RD Unavailable [phone] RADHA ABDUL Referring UnavailTAYLOR Nava Attending Unavailable ELYSE FLORESGHT E Primary Care Unavailable RADHA ABDUL Attending Unavailabl MIKE Rogers Referring Unavailable ELYSE FLORESGHT E Primary Care Unavailable MARIAJOSE ASHER Attending Unavailable ELYSE FLORESGHT E Primary Care Unavailable Enrique Alba MD Primary Care Provider [phone] Enrique Alba MD Primary Care Provider LUIS [...] Facility (20 sources) DULoxetine Drug Allergy 2 [facility] Healthcare (20 sources) metFORMIN Drug Allergy 4 GI intolerance [facility] Healthcare Work Phone: Medications Current Medications Medication Drug Class(es) Dates Sig (Normalized) Sig (Original) [id number] 200 actuat albuterol 0.09 mg/actuat metered dose [...] 08/20/2024 Active gabapentin 300 mg oral capsule (19 sources) Anti-epileptic Agent Start: 08-02-2024 End: 01-29-2025 [...] unspecified] Onset: 09-17-2022 09-17-2022 Chronic Menopausal disorders (13 sources) Menopausal syndrome; 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: [Menopausal and female [...] aftercare (3 sources) 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; 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: [FPC (current) use of non-steroidal anti-inflammatories (NSAID)] Episodic [...] Onset: 09-17-2022 09-17-2022 Episodic Residual codes; unclassified (11 sources) Flushing; 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: [Flushing] Onset: 05-12-2024 05-12-2024 Episodic Thyroid disorders (20 sources) Sick-euthyroid syndrome; 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: [Sick-euthyroid syndrome] Onset: 09-17-2022 09-17-2022 Episodic Results Test Name Value Interpretation Reference Range Facility [facility] HEMOGLOBIN A1Con 025 Glucose [Mass/Vol] 166 mg/dL [facility] HbA1c (Bld) [Mass fraction] 7.4 % High 4.5 - 6.2 % [facility] Comment on above: ADA RECOMMENDED LIMI T 4.0 - 6.0 ADA THERAPEUTIC TARGET < 7.0 ACTION SUGGESTED > 7.0 Interpretation and review of laboratory results Abnormal [facility] ALL CBC WITH AUTO DIFFon BASOPHILS ABSOLUTE AUTO 0 [facility] Basophils/100 WBC (Bld) 0.6 % 0.2 - 2.0 % [facility] Eosinophils/100 WBC (Bld) 1.8 % 0.9 - 7.0 % [facility] Erythrocyte distribution width (RBC) [Ratio] 13.7 % 11.0 - 15.0 % [facility] Hematocrit (Bld) [Volume fraction] 43.9 % 36.0 - 48.0 % [facility] Hemoglobin (Bld) [Mass/Vol] 14.8 g/dL 12.0 - 16.0 g/dL [facility] IMMATURE GRANULOCYTES ABS AUTO 0.02 [facility] Immature granulocytes/100 WBC (Bld) 0.4 % 0.0 - 0.5 % [facility] LYMPHOCYTES ABSOLUTE AUTO 1.4 [facility] Lymphocytes/100 WBC (Bld) 26.3 % 20.5 - 60.0 % [facility] MCH (RBC) [Entitic mass] 28.1 pg 26.7 - 34.0 pg [facility] MCHC (RBC) [Mass/Vol] 33.7 g/dL 29.9 - 35.2 g/dL [facility] MCV (RBC) [Entitic vol] 83.3 fL 81.0 - 99.0 fL [facility] MONOCYTES ABSOLUTE AUTO 0.3 [facility] Monocytes/100 WBC (Bld) 6.2 % 1.7 - 12.0 % [facility] NEUTROPHILS ABSOLUTE AUTO 3.3 [facility] Neutrophils/100 WBC (Bld) 64.7 % 43.0 - 75.0 % [facility] Platelet mean volume (Bld) [Entitic vol] 10 fL 9.5 - 13.5 fL [facility] EO # 0.1 [facility] PLT 199 [facility] RBC 5.27 [facility] WBC 5.1 [facility] XR Foot - left 3 Viewson [...] DA PORTER MD at 16-Jun-2024 09:39:44 AM [facility] Da Porter MD - 06/16/2024 EXAM: [...] DA PORTER MD at 16-Jun-2024 09:39:44 AM [facility] XR Foot - left 3 ViewsOrdere d By: Da Porter on 06-16-2024 [facility] Work Phone: XR FOOT 3+ VIEWS LEFTon [...] DA PORTER MD at 16-Jun-2024 09:39:44 AM [facility] Normal Not Available XR Foot - left 3 [facility] Study observation (narrative) [facility] XR Knee - left 3 [facility]son XR [...] signed and approved by the interpreting Radiologist. [facility] XR Knee - left 3 ViewsOrdere d By: Messi Carballo on 04-19-2024 [facility] Work Phone: XR KNEE 3 VIEWS [...] left 3 [facility] Study observation (narrative) [facility] IGP,APTIMA HPV,AGE GDLNon AGE GDLN ACOG TESTING Note . [facility] Comment on above: TESTS RESULT FLAG UN ITS REF RANGE LAB Clinician Provided Cytology Information Source.............Cervix;Endocervix No. of containers..01 ThinPrep Vial Age Algo ACOG Annabelle... 30-65 FLAG LEGEND: L-Low Normal,H-High Normal,LL-Alert Low,HH-Alert High <-Panic Low,>-Panic High,A-Abnormal,AA-Critical Abnormal Performed at: 01 =[address] [place] [address] Grace Ramos MD, HPV APTIMA Negative Negative [facility] Comment on above: This nucleic acid am plification test detects fourteen high- risk HPV types (16,18,31,33,35,39,45,51,52,56,58,59,66,68) without differentiation. Performed at: =[address] [id number] Paralegal Legal Secretary: Grace Ramos MD, Phone: [phone] Performed at: [address] [id number] Paralegal Legal Secretary: Grace Ramos MD, Phone: [phone] IGP, APTIMA HPV, RFX 16/18,45 Note . [facility] Comment on above: TESTS RESULT FLAG UN ITS REF RANGE LAB DIAGNOSIS: 02 NEGATIVE FOR INTRAEPITHELIAL LESION OR MALIGNANCY. Specimen adequacy: 02 Satisfactory for evaluation. Endocervical and/or squamous metaplastic cells (endocervical component) are present. Performed by: Nathalia Ellis, College Specialist (ASCP) . 02 Note: Note 02 The [...] <-Panic Low,>-Panic High,A-Abnormal,AA-Critical Abnormal Performed at: [address] [address] Grace Ramos MD, BRUSH-SPATULA CERVIX ENDOCERVIX [facility] ALL LIPID PROFILE (FASTING)o n 03-05-2024 CHOL HDL RATIO 4.5 [facility] Comment on above: 3.3 - 4.4 LOW RISK 4.4 - 7.1 AVERAGE RISK 7.1 - 11.0 MODERATE RISK >11.0 HIGH RISK Cholesterol [Mass/Vol] 232 mg/dL High NINF - 200 mg/dL [facility] Cholesterol in HDL [Mass/Vol] 51 mg/dL 40 - 60 mg/dL [facility] Comment on above: > or =60 mg/dl - LOW CARDIOVASCULAR RISK <40 mg/dl - HIGH CARDIOVASCULAR RISK Magnesium [Mass/Vol] 122 mg/dL [facility] Comment on above: <100 mg/dl OPTIMAL 100-129 mg/dl NEAR OR ABOVE OPTIMAL 130-159 mg/dl BORDERLINE HIGH 160-189 mg/dl HIGH >190 mg/dl VERY HIGH Magnesium [Mass/Vol] 59.2 mg/dL [facility] Triglyceride [Mass/Vol] 296 mg/dL High NINF - 150 mg/dL [facility]CF CMP (CMP) (FOR REMOTE FH C USE)on 03-05-2024 Albumin [Mass/Vol] 3.9 g/dL 3.4 - 5.0 g/dL [facility] ALBUMIN GLOBULIN RATIO 1.1 [facility] ALP [Catalytic activity/Vol] 102 U/L 46 - 116 U/L [facility] ALT [Catalytic activity/Vol] 153 U/L High 14 - 59 U/L [facility] Anion gap [Moles/Vol] 14.3 mmol/L [facility] AST [Catalytic activity/Vol] 98 U/L High 15 - 37 U/L [facility] Bilirubin [Mass/Vol] 0.4 mg/dL 0.2 - 1.0 mg/dL [facility] Calcium [Mass/Vol] 8.4 mg/dL Low 8.5 - 10. 1 mg/dL [facility] Chloride [Moles/Vol] 105 mmol/L 98 - 107 mmol/L [facility] CO2 [Moles/Vol] 29.7 mmol/L 21.0 - 32.0 mmol/L [facility] Creatinine [Mass/Vol] 0.98 mg/dL 0.55 - 1.02 mg/dL [facility] GFR/1.73 sq M.predicted CKD-EPI (S/P/Bld) [Vol rate/Area] >60 >=60 mL/min/1.73m 2 [facility] Globulin (S) [Mass/Vol] 3.6 g/dL [facility] Glucose [Mass/Vol] 112 mg/dL High 74 - 106 mg/dL [facility] Potassium [Moles/Vol] 4 mmol/L 3.5 - 5.1 mmol/L [facility] Protein [Mass/Vol] 7.5 g/dL 6.4 - 8.2 g/dL [facility] Sodium [Moles/Vol] 145 mmol/L 136 - 145 mmol/L [facility] TBH EGFR-NON AF BERMUDIAN 59 Low >=60 mL/min/1.73m 2 [facility] Urea nitrogen [Mass/Vol] 13 mg/dL 7.0 - 18.0 mg/dL [facility] Urea nitrogen/Creatinine [Mass ratio] 13.3 mg/mg [facility] No Panel Informationon 03-05 Interpretation and review of laboratory results Abnormal [facility] CNOVon 10-30-2022 CNOV Office Visit (GASTAV ) NAIMA RIOS ([id number]) 1970 F Date Time Provider Department 10/30/22 1:00 PM RADHA ABDUL During your visit today, we recorded the following information about you: Weight Height 120.2 kg 1.6 m Radha Richey MD 10/30/2022 2:34 PM Signed [facility] Mindy Richey MD, FACG, FAASLD Director, [facility] Hepatology [facility] Consult Requested By: Mike Saeed [address] [facility] [address] for evaluation of her fatty liver .. 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 Please feel free to contact me if I can be of further assistance to you {I spent 45 minutes in the visit, with more than 50% of the total [id number] time of the visit in counseling / coordination of care. Referring Provider: MIKE SAEED [[id number]] Allergies As of Date: 10/30/2022 (No Known Allergies) Date Reviewed: 10/30/2022 Reviewed by: RIVER Stuart - Fully Assessed Reason for Visit: New Patient [172] Cmt: Consult for fatty liver Primary Visit Diagnosis:Fatty liver [K76.0] Other Visit Diagnosis:Class 3 severe obesity due to excess calories in adult, unspecified BMI, unspecified whether serious comorbidity present (HCC) [E66.01] Order(s):CELIAC SCREEN WITH REFLEX [SQCELSCR] Order #: [id number] FUTURE HEPATITIS A ANTIBODY, IGG [SQAHAVG] Order #: [id number] FUTURE (more content not included)... Normal [facility] CNOVon 08-01-2022 CNOV Office Visit (RHEUAV ) NAIMA RIOS ([id number]) 1970 F Date Time Provider Department 08/01/22 3:00 PM MARIAJOSE ASHER During your visit today, we recorded the following information about you: Pulse Blood pressure 101/minute 177/81 Mariajose Asher MD 08/01/2022 3:52 PM Signed Rhe[facility]ology Outpatient Clinic Date of Service: 08/01/2022 Patient: Naima Rios Medical Record: [id number] Primary Care Physician: Zeferino Flores Last Rheumatology visit: None at [facility] History of Present Illness Naima Rios [...] , low transverse COLONOSCOP W/ OR W/O [facility] SPEC Colonoscopy EGD EXTRACTION, ERUPTED TOOTH OR EXPOSED ROOT (ELEVATION AND/OR FORCEPS REMOVAL) KNEE SCOPE,MENISECTOMY,MED OR LAT Bilateral Family History No family history on file. Social History Social History Tobacco Use Smoking status: Never Smokeless tobacco: Never Substance Use Topics Alcohol use: No Drug use: No C (more content not included)... Normal [facility] Ammoniaon 02-20-2022 Ammonia (P) [Moles/Vol] 19 umol/L Normal 11-[address] [facility] Comment on above: Order Comment: Reaso n for Exam Elevated liver enzymes;Fatty liver Result Comment: PERF ORMED BY: [address] [address] PATHOLOGIST STATION AGENT DAGMAR CANO M.D. Performed By: #### C BC, CMP, AMM, ADAL, PT, LIPID #### [address] [place] [address] [place] Complete Blood Count Auto Di ffon 02-20-2022 Basophils (Bld) [#/Vol] 0.0 10*3/uL Normal 0.0-0.[address] [facility] Comment on above: Order Comment: Reaso n for Exam Elevated liver enzymes;Fatty liver Result Comment: PERF ORMED BY: [place] [address] PATHOLOGIST STATION AGENT DAGMAR CANO M.D. Performed By: #### C BC, CMP, AMM, ADAL, PT, LIPID #### [address] Basophils/100 WBC (Bld) 0.4 % Normal . [facility] Comment on above: Order Comment: Reaso n for Exam Elevated liver enzymes;Fatty liver Performed By: #### C BC, CMP, AMM, ADAL, PT, LIPID #### [address] Eosinophils (Bld) [#/Vol] 0.1 10*3/uL Normal 0.0-0.[address] [facility] Comment on above: Order Comment: Reaso n for Exam Elevated liver enzymes;Fatty liver Performed By: #### C BC, CMP, AMM, ADAL, PT, LIPID #### [address] Eosinophils/100 WBC (Bld) 1.1 % Normal . [facility] Comment on above: Order Comment: Reaso n for Exam Elevated liver enzymes;Fatty liver Performed By: #### C BC, CMP, AMM, ADAL, PT, LIPID #### [address] Erythrocyte distribution width (RBC) [Ratio] 14.6 % Normal 11.9-15.[address] [facility] Comment on above: Order Comment: Reaso n for Exam Elevated liver enzymes;Fatty liver Performed By: #### C BC, CMP, AMM, ADAL, PT, LIPID #### [address] Hematocrit (Bld) [Volume fraction] 45.3 % Normal 34.0-46.[address] [facility] Comment on above: Order Comment: Reaso n for Exam Elevated liver enzymes;Fatty liver Performed By: #### C BC, CMP, AMM, ADAL, PT, LIPID #### [facility] [address] Hemoglobin (Bld) [Mass/Vol] 15.2 g/dL Normal 11.8-15.[address] [facility] Comment on above: Order Comment: Reaso n for Exam Elevated liver enzymes;Fatty liver Performed By: #### C BC, CMP, AMM, ADAL, PT, LIPID #### [address] Lymphocytes (Bld) [#/Vol] 1.6 10*3/uL Normal 1.00-4.[address] [facility] Comment on above: Order Comment: Reaso n for Exam Elevated liver enzymes;Fatty liver Performed By: #### C BC, CMP, AMM, ADAL, PT, LIPID #### [address] Lymphocytes/100 WBC (Bld) 26.9 % Normal . [facility] Comment on above: Order Comment: Reaso n for Exam Elevated liver enzymes;Fatty liver Performed By: #### C BC, CMP, AMM, ADAL, PT, LIPID #### [address] MCH (RBC) [Entitic mass] 27.3 pg Normal 24.7-34.[address] [facility] Comment on above: Order Comment: Reaso n for Exam Elevated liver enzymes;Fatty liver Performed By: #### C BC, CMP, AMM, ADAL, PT, LIPID #### [address] MCV (RBC) [Entitic vol] 81.5 fL Normal 80-[address] [facility] Comment on above: Order Comment: Reaso n for Exam Elevated liver enzymes;Fatty liver Performed By: #### C BC, CMP, AMM, ADAL, PT, LIPID #### [address] Mean Corpuscular HGB Conc 33.5 g/dL Normal 32.0-35.[address] [facility] Comment on above: Order Comment: Reaso n for Exam Elevated liver enzymes;Fatty liver Performed By: #### C BC, CMP, AMM, ADAL, PT, LIPID #### [facility] [address] Monocytes (Bld) [#/Vol] 0.4 10*3/uL Normal 0.0-0.[address] [facility] Comment on above: Order Comment: Reaso n for Exam Elevated liver enzymes;Fatty liver Performed By: #### C BC, CMP, AMM, ADAL, PT, LIPID #### [facility] [address] [place] [address] [place] Monocytes/100 WBC (Bld) 6.3 % Normal . [facility] Comment on above: Order Comment: Reaso n for Exam Elevated liver enzymes;Fatty liver Performed By: #### C BC, CMP, AMM, ADAL, PT, LIPID #### [place] [address] [place] Neutrophils (Bld) [#/Vol] 3.9 10*3/uL Normal 1.8-7.[address] [facility] Comment on above: Order Comment: Reaso n for Exam Elevated liver enzymes;Fatty liver Performed By: #### C BC, CMP, AMM, ADAL, PT, LIPID #### [address] Neutrophils/100 WBC (Bld) 65.3 % Normal . [facility] Comment on above: Order Comment: Reaso n for Exam Elevated liver enzymes;Fatty liver Performed By: #### C BC, CMP, AMM, ADAL, PT, LIPID #### [facility] [address] [place] [address] [place] Nucleated RBC/100 WBC (Bld) [Ratio] 0.2 % Normal 0-0.[address] [facility] Comment on above: Order Comment: Reaso n for Exam Elevated liver enzymes;Fatty liver Performed By: #### C BC, CMP, AMM, ADAL, PT, LIPID #### [place] [address] [place] Platelet mean volume (Bld) [Entitic vol] 8.2 fL Normal 6.3-10.[address] [facility] Comment on above: Order Comment: Reaso n for Exam Elevated liver enzymes;Fatty liver Performed By: #### C BC, CMP, AMM, ADAL, PT, LIPID #### [facility] [address] Platelets (Bld) [#/Vol] 282 10*3/uL Normal 150-[address] [facility] Comment on above: Order Comment: Reaso n for Exam Elevated liver enzymes;Fatty liver Performed By: #### C BC, CMP, AMM, ADAL, PT, LIPID #### [facility] [address] RBC (Bld) [#/Vol] 5.56 10*6/uL High 3.60-5.00 [facility] Comment on above: Order Comment: Reaso n for Exam Elevated liver enzymes;Fatty liver Performed By: #### C BC, CMP, AMM, ADAL, PT, LIPID #### [facility] [address] WBC (Bld) [#/Vol] 5.9 10*3/uL Normal 4.5-11.0 [facility] Comment on above: Order Comment: Reaso n for Exam Elevated liver enzymes;Fatty liver Performed By: #### C BC, CMP, AMM, ADAL, PT, LIPID #### [facility] [address] Comprehensive Metabolic Pane grace 02-20-2022 Albumin [Mass/Vol] 4.4 g/dL Normal 3.2-5.5 [facility] Comment on above: Order Comment: Reaso n for Exam Elevated liver enzymes;Fatty liver Performed By: #### C BC, CMP, AMM, ADAL, PT, LIPID #### [facility] [address] Albumin/Globulin [Mass ratio] 1.6 {ratio} Normal [facility] Comment on above: Order Comment: Reaso n for Exam Elevated liver enzymes;Fatty liver Performed By: #### C BC, CMP, AMM, ADAL, PT, LIPID #### [facility] [address] [place] [address] [place] ALP [Catalytic activity/Vol] 75 U/L Normal 32-[address] [facility] Comment on above: Order Comment: Reaso n for Exam Elevated liver enzymes;Fatty liver Performed By: #### C BC, CMP, AMM, ADAL, PT, LIPID #### [facility] [address] [place] [address] [place] ALT [Catalytic activity/Vol] 71 U/L High 10-[address] [facility] Comment on above: Order Comment: Reaso n for Exam Elevated liver enzymes;Fatty liver Performed By: #### C BC, CMP, AMM, ADAL, PT, LIPID #### [facility] [address] [place] [id number] [facility] Anion gap [Moles/Vol] 11.4 mmol/L Normal 6.0-15.[address] [facility] Comment on above: Order Comment: Reaso n for Exam Elevated liver enzymes;Fatty liver Performed By: #### C BC, CMP, AMM, ADAL, PT, LIPID #### [facility] [address] [place] [address] [place] AST [Catalytic activity/Vol] 51 U/L High 10-[address] [facility] Comment on above: Order Comment: Reaso n for Exam Elevated liver enzymes;Fatty liver Performed By: #### C BC, CMP, AMM, ADAL, PT, LIPID #### [facility] [address] [place] [id number] [place] Bilirubin [Mass/Vol] 0.7 mg/dL Normal 0.3-1.[address] [facility] Comment on above: Order Comment: Reaso n for Exam Elevated liver enzymes;Fatty liver Performed By: #### C BC, CMP, AMM, ADAL, PT, LIPID #### [facility] [address] [place] [address] [place] Calcium [Mass/Vol] 9.3 mg/dL Normal 8.2-10.2 [facility] Comment on above: Order Comment: Reaso n for Exam Elevated liver enzymes;Fatty liver Performed By: #### C BC, CMP, AMM, ADAL, PT, LIPID #### [facility] [address] Chloride [Moles/Vol] 102 mmol/L Normal 95-[address] [facility] Comment on above: Order Comment: Reaso n for Exam Elevated liver enzymes;Fatty liver Performed By: #### C BC, CMP, AMM, ADAL, PT, LIPID #### [facility] [address] CO2 [Moles/Vol] 25.6 mmol/L Normal 22.0-30.0 [facility] Comment on above: Order Comment: Reaso n for Exam Elevated liver enzymes;Fatty liver Performed By: #### C BC, CMP, AMM, ADAL, PT, LIPID #### [address] Creatinine [Mass/Vol] 0.78 mg/dL Normal 0.44-1.[address] [facility] Comment on above: Order Comment: Reaso n for Exam Elevated liver enzymes;Fatty liver Performed By: #### C BC, CMP, AMM, ADAL, PT, LIPID #### [address] Estimated GFR ( Daphne > 60 [facility] Comment on above: Order Comment: Reaso n for Exam Elevated liver enzymes;Fatty liver Result Comment: GFR estimated reference range: According to KDOQI guidelines, <60 ml/min/1.73m2 is sufficient to diagnose a patient with chronic kidney disease. Performed By: #### C BC, CMP, AMM, ADAL, PT, LIPID #### [facility] [address] Estimated GFR (Non- Am > [address] [facility] Comment on above: Order Comment: Reaso n for Exam Elevated liver enzymes;Fatty liver Performed By: #### C BC, CMP, AMM, ADAL, PT, LIPID #### [facility] [address] [place] [address] Globulin (S) [Mass/Vol] 2.7 g/dL Normal [facility] Comment on above: Order Comment: Reaso n for Exam Elevated liver enzymes;Fatty liver Performed By: #### C BC, CMP, AMM, ADAL, PT, LIPID #### [facility] [address] Glucose [Mass/Vol] 96 mg/dL Normal 70-100 [facility] Comment on above: Order Comment: Reaso n for Exam Elevated liver enzymes;Fatty liver Result Comment: [facility] Glucose Reference Range is dependent on time and content of last meal. Glucose of more than 200 mg/dL in a nonstressed, ambulatory subject supports the diagnosis of Diabetes Mellitus. ADA recommended reference range Performed By: #### C BC, CMP, AMM, ADAL, PT, LIPID #### [facility] [address] Potassium [Moles/Vol] 4.0 mmol/L Normal 3.5-5.[address] [facility] Comment on above: Order Comment: Reaso n for Exam Elevated liver enzymes;Fatty liver Performed By: #### C BC, CMP, AMM, ADAL, PT, LIPID #### [facility] [address] Protein [Mass/Vol] 7.1 g/dL Normal 6.1-7.9 [facility] Comment on above: Order Comment: Reaso n for Exam Elevated liver enzymes;Fatty liver Performed By: #### C BC, CMP, AMM, ADAL, PT, LIPID #### [facility] [address] Sodium [Moles/Vol] 135 mmol/L Low 136-146 [facility] Comment on above: Order Comment: Reaso n for Exam Elevated liver enzymes;Fatty liver Performed By: #### C BC, CMP, AMM, ADAL, PT, LIPID #### [facility] [address] [place] [address] [place] Urea nitrogen [Mass/Vol] 11 mg/dL Normal 9-[address] [facility] Comment on above: Order Comment: Reaso n for Exam Elevated liver enzymes;Fatty liver Performed By: #### C BC, CMP, AMM, ADAL, PT, LIPID #### [facility] [address] [place] [id number] [place] Ferritinon 02-20-2022 Ferritin [Mass/Vol] 127.6 ng/mL Normal 11-306.8 [facility] Comment on above: Order Comment: Reaso n for Exam Elevated liver enzymes;Fatty liver Performed By: #### C BC, CMP, AMM, ADAL, PT, LIPID #### [facility] [address] Lipid Panelon 02-20-2022 Cholesterol [Mass/Vol] 226 mg/dL High 140-[address] [facility] Comment on above: Order Comment: Reaso n for Exam Elevated liver enzymes;Fatty liver Result Comment: Chol less than 200 mg/dl low risk Chol 201-239 mg/dl borderline risk Chol 240 mg/dl and greater high risk Performed By: #### C BC, CMP, AMM, ADAL, PT, LIPID #### [facility] [address] Cholesterol in HDL [Mass/Vol] 50 mg/dL Normal 35-[address] [facility] Comment on above: Order Comment: Reaso n for Exam Elevated liver enzymes;Fatty liver Result Comment: HDL CHOL ATP-III CLASSIFICATION Cardiovascular Risk HDL > or equal to 60 mg/dL LOW HDL < 40 mg/dL HIGH Performed By: #### C BC, CMP, AMM, ADAL, PT, LIPID #### [facility] [address] Cholesterol.total/C holesterol in HDL [Mass ratio] 4.5 {ratio} Normal <5.[address] [facility] Comment on above: Order Comment: Reaso n for Exam Elevated liver enzymes;Fatty liver Result Comment: PERF ORMED BY: [place] [address] PATHOLOGIST STATION AGENT DAGMAR CANO M.D. Performed By: #### C BC, CMP, AMM, ADAL, PT, LIPID #### [facility] [address] LDL Cholesterol,Calcula john paul 138 mg/dL High 0-[address] [facility] Comment on above: Order Comment: Reaso n for Exam Elevated liver enzymes;Fatty liver Result Comment: LDL ATP III CLASSIFICATION LDL less than 100 mg/dL Optimal LDL 100-129 mg/dL Near or above optimal LDL 130-159 mg/dL Borderline high LDL 160-189 mg/dL High LDL greater than 189 mg/dL Very high Performed By: #### C BC, CMP, AMM, ADAL, PT, LIPID #### [address] Triglyceride w/Reflex 188 mg/dL High 35-[address] [facility] Comment on above: Order Comment: [...] BC, CMP, AMM, ADLA, PT, LIPID #### [address] VLDL CHOLESTEROL 37 mg/dL Normal [facility] Comment on above: Order Comment: Reaso n for Exam Elevated liver enzymes;Fatty liver Performed By: #### C BC, CMP, AMM, ADAL, PT, LIPID #### [address] Prothrombin Time INRon 02-20 INR Coag (PPP) [Relative time] 1.1 {INR} Normal [facility] Comment on above: Order Comment: [...] heart valves: 3 - 4.5 PERFORMED BY: [place] [address] PATHOLOGIST STATION AGENT DAGMAR CANO M.D. Performed By: #### C BC, CMP, AMM, ADAL, PT, LIPID #### [address] PT Coag (PPP) [Time] 12.1 s Normal 9.0-12.[address] [facility] Comment on above: Order Comment: Reaso n for Exam Elevated liver enzymes;Fatty liver Performed By: #### C BC, CMP, AMM, ADAL, PT, LIPID #### [facility] [address] [id number] [facility] MG MAMM SCREEN 3D ENMANUEL CADon 11-05-2021 MG MAMM SCREEN 3D ENMANUEL CAD Patient: NAIMA RIOS Exam Date: 11/05/2021 : 1970 Gender:F Ordering : DR OSCAR NAVARRO . Admission #: [id number] Family : Order #: [id number] CLICK HERE TO VIEW EXAM RADIOLOGY REPORT PROCEDURE: MAMMOGRAM SCREENING 3D BILATERAL CAD COMPARISON: MG MAMM SCREEN ENMANUEL W CAD, 05/14/2019. MAMMO ENMANUEL SCREEN, 07/12/2020. INDICATIONS: Screening mammography Calculator Name NCI Breast Cancer Risk Assessment Tool 5 Year Breast Cancer Risk 1.60% Lifetime Breast Cancer Risk 14.00% Personal Breast Cancer No Personal Ovarian Cancer No Treatments None Family Cancers None LOCATION: [facility] BREAST COMPOSITION: Scattered areas fibroglandular density. [...] Romeo MD on 11/05/2021 at 10:43 Normal [facility] PAP ACOG PANEL 2: 30 to 65on 11-05-2021 . . Normal [facility] Comment on above: Result Comment: Perf ormed at: WB Performed By: #### [id number] #### [facility] [address] [place] [address] Dr. Peg Shelby Age Gdln ACOG Testing 30-65 Normal [facility] Comment on above: Performed By: #### [id number] #### [facility] [address] [address] [address] Peg Shelby DIAGNOSIS: Comment Normal [facility] Comment on above: Result Comment: NEGA TIVE FOR INTRAEPITHELIAL LESION OR MALIGNANCY. Performed at: WB Performed By: #### [id number] #### [facility] [address] [address] [address] Peg Shelby HPV Aptima Negative Normal Negative [facility] Comment on above: Result Comment: This nucleic acid amplification test detects fourteen high-risk HPV types (16,18,31,33,35,39,45,51,52,56,58,59,66,68) without differentiation. Performed at: =G Performed By: #### [id number] #### [facility] [address] [place] [address] Dr. Peg Shelby Methodology: Comment Normal [facility] Comment on above: Result Comment: This liquid based ThinPrep(R) pap test was screened with the use of an image guided system. Performed at: WB Performed By: #### [id number] #### [facility] [address] [place] [address] Dr. Peg Shelby Note: Comment Normal [facility] Comment on above: Result Comment: The Pap smear is a screening test designed to aid in the detection of premalignant and malignant conditions of the uterine cervix. It is not a diagnostic procedure and should not be used as the sole means of detecting cervical cancer. Both false-positive and false-negative reports do occur. . Performed at: WB Performed By: #### [id number] #### [facility] [address] [place] [address] Dr. Peg Shelby Performed by: Comment Normal [facility] Comment on above: Result Comment: Janey Gonzalez, College Specialist (ASCP) Performed at: WB Performed By: #### [id number] #### [facility] [address] [place] [address] Dr. Peg Shelby Specimen adequacy: Comment Normal [facility] Comment on above: Result Comment: Sati sfactory for evaluation. Endocervical and/or squamous metaplastic cells (endocervical component) are present. Performed at: WB Performed By: #### [id number] #### [facility] [address] [address] [address] Peg Shelby VAGINITIS/VAGINOSIS DNA PROB Saul 11-02-2021 Sandhya species Negative Normal Negative [facility] Comment on above: Performed By: #### V AGINT #### [facility] [address] [address] [address] Peg Shelby Gardnerella vaginalis Positive Abnormal Negative [facility] Comment on above: Performed By: #### V AGINT #### [facility] [address] [address] [address] Peg Shelby Trichomonas vaginalis Negative Normal Negative [facility] Comment on above: Performed By: #### V AGINT #### [facility] [address] [address] [address] Peg Shelby US SINGLE QUAD RT [...] MONTRELL WU Date: 2021-10-16 07:39 Normal [facility] LIPID PROFILEon 10-11-2021 CHOL-HDL RATIO NORM SEE BELOW Normal [facility] Comment on above: Result Comment: 3.3 - 4.4 LOW RISK 4.4 - 7.1 AVERAGE RISK 7.1 - 11.0 MODERATE RISK >11.0 HIGH RISK Performed By: #### L IPID, CMP #### [facility] [address] [address] [address] Peg Shelby Cholesterol [Mass/Vol] 235 mg/dL Critically high <=200 [facility] Comment on above: Performed By: #### L IPID, CMP #### [facility] [address] [address] [address] Peg Shelby Cholesterol in HDL [Mass/Vol] 42 mg/dL Normal 40-60 [facility] Comment on above: Performed By: #### L IPID, CMP #### [facility] [address] [address] [address] Peg Shelby Cholesterol in LDL [Mass/Vol] 139.8 mg/dL Normal [facility] Comment on above: Performed By: #### L IPID, CMP #### [facility] [address] [address] [address] Peg Shelby Cholesterol.total/C holesterol in HDL [Mass ratio] 5.6 {ratio} Normal [facility] Comment on above: Performed By: #### L IPID, CMP #### [facility] [address] [address] [address] Peg Shelby HDL NORMAL > or = 60 mg/dl - LO W CARDIOVASCULAR RISK <40 mg/dl - HIGH CARDIOVASCULAR RISK Normal [facility] Comment on above: Performed By: #### L IPID, CMP #### [facility] [address] [address] [address] Peg Shelby LDL CALC NORMAL SEE BELOW Normal [facility] Comment on above: Result Comment: <100 mg/dl OPTIMAL 100 - 129 mg/dl NEAR OR ABOVE OPTIMAL 130 - 159 mg/dl BORDERLINE HIGH 160 - 189 mg/dl HIGH >190 mg/dl VERY HIGH Performed By: #### L IPID, CMP #### [facility] [address] [address] [address] Peg Shelby Triglyceride [Mass/Vol] 266 mg/dL Critically high <=150 [facility] Comment on above: Performed By: #### L IPID, CMP #### [facility] [address] [address] [address] Peg Shelby VLDL CALC 53.2 mg/dL Normal [facility] Comment on above: Performed By: #### L IPID, CMP #### [facility] [address] [address] [address] Peg Shelby PROF 14(COMP METB)on 022 Albumin [Mass/Vol] 3.9 g/dL Normal 3.4-5.0 [facility] Comment on above: Performed By: #### L IPID, CMP #### [facility] [address] [address] [address] Peg Shelby Albumin/Globulin [Mass ratio] 1.1 {ratio} Normal [facility] Comment on above: Performed By: #### L IPID, CMP #### [facility] [address] [place] [address] Dr. Peg Shelby ALP [Catalytic activity/Vol] 90 U/L Normal 46-116 [facility] Comment on above: Performed By: #### L IPID, CMP #### [facility] [address] [place] [address] Dr. Peg Shelby ALT [Catalytic activity/Vol] 131 U/L Critically high 14-59 [facility] Comment on above: Performed By: #### L IPID, CMP #### [facility] [address] [place] [address] Dr. Peg Shelby Anion gap [Moles/Vol] 10.7 mmol/L Normal [facility] Comment on above: Performed By: #### L IPID, CMP #### [facility] [address] [address] [address] Peg Shelby AST [Catalytic activity/Vol] 78 U/L Critically high 15-37 [facility] Comment on above: Performed By: #### L IPID, CMP #### [facility] [address] [place] [address] Dr. Peg Shelby Bilirubin [Mass/Vol] 0.5 mg/dL Normal 0.2-1.0 [facility] Comment on above: Performed By: #### L IPID, CMP #### [facility] [address] [place] [address] Dr. Peg Shelby Calcium [Mass/Vol] 8.6 mg/dL Normal 8.5-10.1 [facility] Comment on above: Performed By: #### L IPID, CMP #### [facility] [address] [place] [address] Dr. Peg Shelby Chloride [Moles/Vol] 104 mmol/L Normal 98-107 [facility] Comment on above: Performed By: #### L IPID, CMP #### [facility] [address] [place] [address] Dr. Peg Shelby CO2 [Moles/Vol] 29.5 mmol/L Normal 21.0-32.0 [facility] Comment on above: Performed By: #### L IPID, CMP #### [facility] [address] [place] [address] Dr. Peg Shelby Creatinine [Mass/Vol] 0.83 mg/dL Normal 0.55-1.02 [facility] Comment on above: Performed By: #### L IPID, CMP #### [facility] [address] [place] [address] Dr. Peg Shelby EGFR-AF BERMUDIAN >60 Normal >=60 [facility] Comment on above: Performed By: #### L IPID, CMP #### [facility] [address] [place] [address] Dr. Peg Shelby EGFR-NON AF BERMUDIAN >60 Normal >=60 [facility] Comment on above: Performed By: #### L IPID, CMP #### [facility] [address] [place] [address] Dr. Peg Shelby Globulin (S) [Mass/Vol] 3.4 g/dL Normal [facility] Comment on above: Performed By: #### L IPID, CMP #### [facility] [address] [place] [address] Dr. Peg Shelby Glucose [Mass/Vol] 108 mg/dL Critically high 74-[address] [facility] Comment on above: Performed By: #### L IPID, CMP #### [facility] [address] [place] [address] Dr. Peg Shelby Potassium [Moles/Vol] 4.2 mmol/L Normal 3.5-5.1 [facility] Comment on above: Performed By: #### L IPID, CMP #### [facility] [address] [place] [address] Dr. Peg Shelby Protein [Mass/Vol] 7.3 g/dL Normal 6.4-8.2 [facility] Comment on above: Performed By: #### L IPID, CMP #### [facility] [address] [place] [address] Dr. Peg Shelby Sodium [Moles/Vol] 140 mmol/L Normal 136-145 [facility] Comment on above: Performed By: #### L IPID, CMP #### [facility] [address] [place] [address] Dr. Peg Shelby Urea nitrogen [Mass/Vol] 14.0 mg/dL Normal 7.0-18.0 [facility] Comment on above: Performed By: #### L IPID, CMP #### [facility] [address] [place] [address] Dr. Pge Shelby Urea nitrogen/Creatinine [Mass ratio] 16.9 mg/mg Normal [facility] Comment on above: Performed By: #### L IPID, CMP #### [facility] [address] [place] [address] Dr. Peg Shelby LIPID PROFILEon 03-20-2021 CHOL-HDL RATIO NORM SEE BELOW Normal [facility] Comment on above: Result Comment: 3.3 - 4.4 LOW RISK 4.4 - 7.1 AVERAGE RISK 7.1 - 11.0 MODERATE RISK >11.0 HIGH RISK Performed By: #### C MP, LIPID #### [facility] [address] [place] [address] Dr. Peg Shelby Cholesterol [Mass/Vol] 245 mg/dL Critically high <=200 [facility] Comment on above: Performed By: #### C MP, LIPID #### [facility] [address] [place] [address] Dr. Peg Shelby Cholesterol in HDL [Mass/Vol] 42 mg/dL Normal [facility] Comment on above: Performed By: #### C MP, LIPID #### [facility] [address] [address] [address] Peg Shelby Cholesterol in LDL [Mass/Vol] 144.8 mg/dL Normal [facility] Comment on above: Performed By: #### C MP, LIPID #### [facility] [address] [address] [address] Peg Shelby Cholesterol.total/C holesterol in HDL [Mass ratio] 5.8 {ratio} Normal [facility] Comment on above: Performed By: #### C MP, LIPID #### [facility] [address] [address] [address] Peg Shelby HDL NORMAL > or = 60 mg/dl - LO W CARDIOVASCULAR RISK <40 mg/dl - HIGH CARDIOVASCULAR RISK Normal [facility] Comment on above: Performed By: #### C MP, LIPID #### [facility] [address] [address] [address] Peg Shelby LDL CALC NORMAL SEE BELOW Normal [facility] Comment on above: Result Comment: <100 mg/dl OPTIMAL 100 - 129 mg/dl NEAR OR ABOVE OPTIMAL 130 - 159 mg/dl BORDERLINE HIGH 160 - 189 mg/dl HIGH >190 mg/dl VERY HIGH Performed By: #### C MP, LIPID #### [facility] [address] [address] [address] Peg Shelby Triglyceride [Mass/Vol] 291 mg/dL Critically high <=150 [facility] Comment on above: Performed By: #### C MP, LIPID #### [facility] [address] [address] [address] Peg Shelby VLDL CALC 58.2 mg/dL Normal [facility] Comment on above: Performed By: #### C MP, LIPID #### [facility] [address] [address] [address] Peg Shelby PROF 14(COMP METB)on 021 Albumin [Mass/Vol] 4.0 g/dL Normal 3.5-5.0 [facility] Comment on above: Performed By: #### C MP, LIPID #### [facility] [address] [address] [address] Peg Shelby Albumin/Globulin [Mass ratio] 1.1 {ratio} Normal [facility] Comment on above: Performed By: #### C MP, LIPID #### [facility] [address] [address] [address] Peg Shelby ALP [Catalytic activity/Vol] 88 U/L Normal 38-126 [facility] Comment on above: Performed By: #### C MP, LIPID #### [facility] [address] [place] [address] Dr. Peg Shelby ALT [Catalytic activity/Vol] 112 U/L Critically high 9-52 [facility] Comment on above: Performed By: #### C MP, LIPID #### [facility] [address] [place] [address] Dr. Peg Shelby Anion gap [Moles/Vol] 12.5 mmol/L Normal [facility] Comment on above: Performed By: #### C MP, LIPID #### [facility] [address] [place] [address] Dr. Peg Shelby AST [Catalytic activity/Vol] 52 U/L Critically high 14-36 [facility] Comment on above: Performed By: #### C MP, LIPID #### [facility] [address] [place] [address] Dr. Peg Shelby Bilirubin [Mass/Vol] 0.5 mg/dL Normal 0.2-1.3 [facility] Comment on above: Performed By: #### C MP, LIPID #### [facility] [address] [place] [address] Dr. Peg Shelby Calcium [Mass/Vol] 8.9 mg/dL Normal 8.4-10.2 [facility] Comment on above: Performed By: #### C MP, LIPID #### [facility] [address] [place] [address] Dr. Peg Shelby Chloride [Moles/Vol] 104 mmol/L Normal 98-107 [facility] Comment on above: Performed By: #### C MP, LIPID #### [facility] [address] [address] [address] Peg Shelby CO2 [Moles/Vol] 30.5 mmol/L Critically high 22.0-30.0 [facility] Comment on above: Performed By: #### C MP, LIPID #### [facility] [address] [place] [address] Dr. Peg Shelby Creatinine [Mass/Vol] 0.82 mg/dL Normal 0.52-1.04 [facility] Comment on above: Performed By: #### C MP, LIPID #### [facility] [address] [place] [address] Dr. Peg Shelby EGFR-AF BERMUDIAN >60 Normal >=60 [facility] Comment on above: Performed By: #### C MP, LIPID #### [facility] [address] [place] [address] Dr. Peg Shelby EGFR-NON AF BERMUDIAN >60 Normal >=60 [facility] Comment on above: Performed By: #### C MP, LIPID #### [facility] [address] [place] [address] Dr. Peg Shelby Globulin (S) [Mass/Vol] 3.7 g/dL Normal [facility] Comment on above: Performed By: #### C MP, LIPID #### [facility] [address] [place] [address] Dr. Peg Shelby Glucose [Mass/Vol] 118 mg/dL Critically high 74-106 [facility] Comment on above: Performed By: #### C MP, LIPID #### [facility] [address] [place] [address] Dr. Peg Shelby Potassium [Moles/Vol] 4.0 mmol/L Normal 3.4-5.0 [facility] Comment on above: Performed By: #### C MP, LIPID #### [facility] [address] [place] [address] Dr. Peg Shelby Protein [Mass/Vol] 7.7 g/dL Normal 6.1-8.2 [facility] Comment on above: Performed By: #### C MP, LIPID #### [facility] [address] [place] [address] Dr. Peg Shelby Sodium [Moles/Vol] 143 mmol/L Normal 137-145 [facility] Comment on above: Performed By: #### C MP, LIPID #### [facility] [address] [address] [address] Peg Shelby Urea nitrogen [Mass/Vol] 13.0 mg/dL Normal 7.0-17.0 [facility] Comment on above: Performed By: #### C MP, LIPID #### [facility] [address] [address] [address] Peg Shelby Urea nitrogen/Creatinine [Mass ratio] 15.9 mg/mg Normal [facility] Comment on above: Performed By: #### C MP, LIPID #### [facility] [address] [address] [address] Peg Shelby 2019 Novel Coronavirus (CoVI D-19), LUCINDA LCon 12-23-2019 SARS-CoV-2, LUCINDA (COVID-19) LC Detected Abnormal Not Detected [facility] Comment on above: Order Comment: [id number] Results Called To July at Dr. Alba's By JOSUE And Read Back For Confirmation On 12/23/2019 11:38:22 EDT. Result Comment: This test was developed and its performance characteristics determined by [employer]. This test has not been FDA cleared [...] detected) result in this assay. Performed At: [facility] [address] [facility] [place] [id number] Kenna Bach MD Ph:[phone] Performed By: #### [id number] #### [facility] (DEFAULT) [address] [place] [id number] Coding Summaryon 12-22-2019 Coding Summary CODING DATE: [address] [facility] STATUS: Home PAYOR: Commercial Insurance [...] Sheryl Lovett Date Saved: 12/22/2019 01:57 pm [facility] Consent Formson 12-22-2019 Consent Forms [id number] [email or web address] [facility] Vital Signs Date Time Vital Sign Value Performing Clinician Facility 09-01-2024 13:28-0400 Body height 160 cm Enrique Alba MD Work Phone: [facility] 09-01-2024 13:28-0400 Body mass index (BMI) [Ratio] 48.71 kg/m2 Enrique Alba MD Work Phone: [facility] 09-01-2024 13:28-0400 Body weight 124.74 kg Enrique Alba MD Work Phone: [facility] 09-01-2024 13:28-0400 Heart rate 77 /min Enrique Alba MD Work Phone: [facility] 09-01-2024 13:28-0400 SaO2% (BldA) [Mass fraction] 97 % Enrique Alba MD Work Phone: [facility] 08-02-2024 15:24-0400 Body height 160 cm Enrique Alba MD Work Phone: [facility] 08-02-2024 15:24-0400 Body mass index (BMI) [Ratio] 48.71 kg/m2 Enrique Alba MD Work Phone: [facility] 08-02-2024 15:24-0400 Body weight 124.74 kg Enrique Alba MD Work Phone: [facility] 08-02-2024 15:24-0400 Diastolic blood pressure 80 mm[Hg] Enrique Alba MD Work Phone: [facility] 08-02-2024 15:24-0400 Heart rate 90 /min Enrique Alba MD Work Phone: [facility] 08-02-2024 15:24-0400 SaO2% (BldA) [Mass fraction] 97 % Enrique Alba MD Work Phone: [facility] 08-02-2024 15:24-0400 Systolic blood pressure 136 mm[Hg] Enrique Alba MD Work Phone: [facility] 06-15-2024 18:15-0500 Body temperature 97.2 [degF] Luis Eduardo Levine [employer] Work Phone: [facility] 06-15-2024 18:15-0500 Diastolic blood pressure 90 mm[Hg] Luis Eduardo Levine [employer] Work Phone: [facility] 06-15-2024 18:15-0500 Heart rate 88 /min Luis Eduardo Julián [employer] Work Phone: [facility] 06-15-2024 18:15-0500 SaO2% (BldA) [Mass fraction] 98 % Luis Eduardoregi Levine [employer] Work Phone: [facility] 06-15-2024 18:15-0500 Systolic blood pressure 138 mm[Hg] Luis Eduardo Julián [employer] Work Phone: [facility] 04-17-2024 10:20-0500 Body mass index (BMI) [Ratio] 48.86 kg/m2 Beatriz Rankin [employer] Work Phone: [facility] 04-17-2024 10:20-0500 Body temperature 97.59 [degF] Beatriz Rankin [employer] Work Phone: [facility] 04-17-2024 10:20-0500 Body weight 125.1 kg Beatriz Rankin [employer] Work Phone: [facility] 04-17-2024 10:20-0500 Diastolic blood pressure 84 mm[Hg] Beatriz Rankin [employer] Work Phone: [facility] 04-17-2024 10:20-0500 Heart rate 100 /min Beatriz Rankin [employer] Work Phone: [facility] 04-17-2024 10:20-0500 SaO2% (BldA) [Mass fraction] 97 % Beatriz Rankin [employer] Work Phone: [facility] 04-17-2024 10:20-0500 Systolic blood pressure 138 mm[Hg] Beatriz Rankin [employer] Work Phone: [facility] 04-05-2024 13:48-0500 Body height 160 cm Enrique Alba MD Work Phone: [facility] 04-05-2024 13:48-0500 Body mass index (BMI) [Ratio] 36.31 kg/m2 Enrique Alba MD Work Phone: [facility] 04-05-2024 13:48-0500 Body weight 92.99 kg Enrique Alba MD Work Phone: [facility] 04-05-2024 13:48-0500 Heart rate 93 /min Enrique Alba MD Work Phone: [facility] 04-05-2024 13:48-0500 SaO2% (BldA) [Mass fraction] 95 % Enrique Alba MD Work Phone: [facility] 03-29-2024 11:40-0500 Body mass index (BMI) [Ratio] 36.34 kg/m2 Janey Davis PA Work Phone: [facility] 03-29-2024 11:40-0500 Body weight 93.04 kg Janey Davis PA Work Phone: [facility] 03-29-2024 11:40-0500 Diastolic blood pressure 90 mm[Hg] Janey Davis PA Work Phone: [facility] 03-29-2024 11:40-0500 Systolic blood pressure 138 mm[Hg] Janey Davis PA Work Phone: [facility] 03-11-2024 14:26-0500 Body height 160 cm Enrique Alba MD Work Phone: [facility] 03-11-2024 14:26-0500 Body mass index (BMI) [Ratio] 49.6 kg/m2 Enrique Alba MD Work Phone: [facility] 03-11-2024 14:26-0500 Body weight 127.01 kg Enrique Alba MD Work Phone: [facility] 02-25-2024 15:35-0400 Body height 160 cm Enrique Alba MD Work Phone: [facility] 02-25-2024 15:35-0400 Body mass index (BMI) [Ratio] 49.6 kg/m2 Enrique Alba MD Work Phone: [facility] 02-25-2024 15:35-0400 Body weight 127.01 kg Enrique Alba MD Work Phone: [facility] 02-25-2024 15:35-0400 Diastolic blood pressure 78 mm[Hg] Enrique Alba MD Work Phone: [facility] 02-25-2024 15:35-0400 Heart rate 97 /min Enrique Alba MD Work Phone: [facility] 02-25-2024 15:35-0400 SaO2% (BldA) [Mass fraction] 99 % Enrique Alba MD Work Phone: [facility] 02-25-2024 15:35-0400 Systolic blood pressure 132 mm[Hg] Enrique Alba MD Work Phone: [facility] 12-16-2023 16:24-0400 Body height 160 cm Enrique Alba MD Work Phone: [facility] 12-16-2023 16:24-0400 Body mass index (BMI) [Ratio] 46.06 kg/m2 Enrique Alba MD Work Phone: [facility] 12-16-2023 16:24-0400 Body weight 117.94 kg Enrique Alba MD Work Phone: [facility] 12-05-2022 14:03-0400 Body height [address] Work Phone: [facility] 12-05-2022 14:03-0400 Body weight 117.[address] Work Phone: [facility] 10-30-2022 13:20-0400 Body height 160 cm Radha Rios MD Work Phone: [facility] 10-30-2022 13:20-0400 Body weight 120.2 kg Radha Rios MD Work Phone: [facility] 08-01-2022 14:50-0400 Diastolic blood pressure 81 mm[Hg] Mariajose Asher MD Work Phone: [facility] 08-01-2022 14:50-0400 Heart rate 101 /min Mariajose Asher MD Work Phone: [facility] 08-01-2022 14:50-0400 Systolic blood pressure 177 mm[Hg] Mariajose Asher MD Work Phone: [facility] 05-07-2022 14:00-0500 Body height 160.02 cm Ernie Fuller Other [employer] Other 05-07-2022 14:00-0500 Body mass index (BMI) [Ratio] 46.05 kg/m2 Ernie Fuller Other [employer] Other 05-07-2022 14:00-0500 Body weight 117.94 kg Ernie Fuller Other [employer] Other 05-07-2022 14:00-0500 Diastolic blood pressure 109 mm[Hg] Ernie Fuller Other [employer] Other 05-07-2022 14:00-0500 Systolic blood pressure 172 mm[Hg] Ernie Fuller Other [employer] Other 01-30-2022 10:45-0400 Body height 160.02 cm Ernie Fuller Other [employer] Other 01-30-2022 10:45-0400 Body mass index (BMI) [Ratio] 47.29 kg/m2 Ernie Fuller Other [employer] Other 01-30-2022 10:45-0400 Body weight 121.11 kg Ernie Fuller Other [employer] Other Encounters Encounter Date Encounter Type Care Provider Facility Start: 10-30-2024 End: 10-30-2024 Clinisync Result Encounter Generic External Data Provider [facility] External Department Unsolicited Start: 10-30-2024 End: 10-30-2024 Clinisync Result Encounter Generic External Data Provider [facility] External Department Unsolicited Start: 10-27-2024 End: [...] depressive disorder, in partial remission (HCC) (CMS/HCC); Primary hypertension (CMS/HCC); Mixed dyslipidemia (CMS/HCC); Pre-diabetes; Morbid obesity (CMS/HCC); Adult BMI 45.0-49.9 kg/sq m (CMS/HCC) Start: 08-02-2024 End: 08-02-2024 ambulatory ENRIQUE ALBA Not Available Start: 08-02-2024 End: 08-02-2024 Bamboo flowsheet Enrique Alba MD Work Phone: [facility] Start: 08-02-2024 End: 08-02-2024 Bamboo flowsheet Enrique Alba MD Work Phone: [facility] Start: 06-16-2024 End: 06-16-2024 Telephone encounter Luis Eduardo Levine [employer] Work Phone: [facility] Start: 06-15-2024 End: 06-15-2024 Office outpatient visit 25 minutes Luis Eduardo Levine [employer] Work Phone: [facility] Comment on [...] End: 04-17-2024 Office outpatient visit 25 minutes Beatrizhong Rankin [employer] Work Phone: [facility] Comment on [...] 03-29-2024 End: 03-29-2024 Patient encounter procedure Janey Davis PA Work Phone: [facility] Work Phone: Start: 03-29-2024 End: 03-29-2024 Periodic preventive med est patient 40-64yrs Janey Janette RILEY Work Phone: [facility] Comment on above: Well woman exam with routine gynecological exam; Yeast infection of the skin Start: 03-29-2024 End: 03-29-2024 ambulatory JANEY HAYDENEY Not Available Start: 03-13-2024 End: 03-15-2024 Refill [...] (CMS/HCC) Start: 12-05-2022 End: 12-05-2022 [address] Work Phone: Nutrition Therapy Comment on above: Fatty liver Start: 12-05-2022 End: 12-05-2022 Telemedicine consultation with patient Taylor Gee RD Work Phone: [facility] Start: 10-30-2022 End: 10-30-2022 ambulatory RADHA RIOS Facility:[facility] Start: 10-30-2022 End: 10-30-2022 Patient encounter procedure Radha Rios MD Work Phone: Gastroenterology Comment on above: Fatty liver (Primary Dx); Class 3 severe obesity due to excess calories in adult, unspecified BMI, unspecified whether serious comorbidity present (HCC) Start: 08-01-2022 End: 08-01-2022 ambulatory MARIAJOSE ASHER Facility:[facility] Start: 08-01-2022 End: 08-01-2022 Patient encounter procedure Mariajose Asher MD Work Phone: Rheumatology Comment on above: 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 Start: 01-30-2022 End: 01-30-2022 ambulatory Ernie Fuller Other [employer] Other Start: 01-30-2022 Office outpatient ne w [...] Date Procedure Procedure Detail Performing Clinician Start: 10-30-2024 MLR HEMOGLOBIN A1C Generic External Jules a Provider Start: 10-27-2024 ALL CBC WITH AUTO DIFF Enrique Alba MD Work Phone: Start: 04-17-2024 Radiologic examination knee 3 views Beatriz Rankin [employer] Work Phone: Start: 03-29-2024 IGP,APTIMA HPV,AGE GDLN Janey RILEY Work Phone: Start: 03-29-2024 Microscopic observation [Identifier] in Cervix by Cyto stain Enrique Alba MD Work Phone: Start: 03-05-2024 ALL LIPID PROFILE (FASTING) Enrique Alba MD Work Phone: Start: 03-05-2024 [facility] CMP (CMP) (FOR REMOTE [facility] USE) Enrique Alba MD Work Phone: Start: [...] Screening for malign ant neoplasm of cervix [facility] Start: 09-18-2026 Screening for malign ant neoplasm of colon [facility] Start: 11-01-2025 Screening for malign ant neoplasm of cervix [facility] Start: 04-04-2025 End: 04-04-2025 Patient encounter procedure 04/04/2025 3:00 PM EST Office Visit [facility] [address] [place] [address] Janey Davis PA [address] [place] [place] [address] [facility] Start: 03-05-2025 Screening for malign ant neoplasm of breast Mammogram [facility] Start: 12-27-2024 Influenza vaccination Influenza Vacc ine (#1) [facility] Start: 09-01-2024 End: 09-01-2025 Holter monitor study Holter monitor Imaging Routine Palpitations Tachycardia Expected: 09/01/2024 (Approximate), Expires: 09/01/2025 [facility] Work Phone: Comment on above: Expected: 09/01/2024 (Approximate), Expires: 09/01/2025 Start: 09-01-2024 End: 09-01-2024 Patient encounter procedure 09/01/2024 1:45 PM EDT Office Visit [facility] [address] [facility] [place] [address] Enrique Alba MD [address] [place] [address] (Fax) Arrived [facility] Comment on above: Arrived Start: 08-02-2024 End: 08-02-2024 Patient encounter procedure 08/02/2024 3:30 PM EDT Office Visit [facility] [address] [place] [address] Enrique Alba MD [address] [place] [address] Primary hypertension (CMS/HCC); Mixed dyslipidemia (CMS/HCC); Pre-diabetes; Glucose intolerance (impaired glucose tolerance); Recurrent major depressive disorder, in partial remission (HCC) (CMS/HCC); Insomnia due to other mental disorder; Morbid obesity (CMS/HCC); Adult BMI 45.0-49.9 kg/sq m (CMS/HCC) [facility] Comment on above: Primary [...] leg syndrome Expected: 08/02/2024 (Approximate), Expires: 08/02/2025 [facility] Work Phone: Comment on above: Expected: 08/02/2024 (Approximate), Expires: 08/02/2025 Start: 08-02-2024 End: 08-02-2025 Iron and Iron binding capacity panel - Serum or Plasma Iron and TIBC Lab Routine Restless leg syndrome Expected: 08/02/2024 (Approximate), Expires: 08/02/2025 [facility] Comment on above: Expected: 08/02/2024 (Approximate), Expires: 08/02/2025 Start: 03-29-2024 End: 03-29-2024 Patient encounter procedure [facility] Comment on above: Arrived Start: 03-18-2024 Screening for malign ant neoplasm of cervix [facility] Start: 02-26-2024 End: 02-25-2025 Comprehensive metabolic 2000 panel - Serum or Plasma Comprehensive metabolic panel Lab Routine Glucose intolerance (impaired glucose tolerance) Primary hypertension (CMS/HCC) Expected: 02/26/2024 (Approximate), Expires: 02/25/2025 [facility] Work Phone: Comment on above: Expected: 02/26/2024 (Approximate), Expires: 02/25/2025 Start: 02-26-2024 End: 04-27-2025 DBT Breast - bilateral screening Bilateral screening mammogram with tomosynthesis Imaging Routine Screening mammogram for breast cancer Expected: 02/26/2024 (Approximate), Expires: 04/27/2025 [facility] Comment on above: Expected: 02/26/2024 (Approximate), Expires: 04/27/2025 Start: 02-26-2024 End: 02-25-2025 DXA Skeletal system Views for bone density DEXA bone density Imaging Routine Menopausal and female climacteric states Osteoporosis screening Encounter for follow-up examination after completed treatment for conditions other than malignant neoplasm Expected: 02/26/2024 (Approximate), Expires: 02/25/2025 [facility] Comment on above: Expected: 02/26/2024 (Approximate), Expires: 02/25/2025 Start: 02-26-2024 End: 02-25-2025 Lipid 1996 panel - Serum or Plasma Lipid panel Lab Routine Mixed hyperlipidemia (CMS/HCC) Expected: 02/26/2024 (Approximate), Expires: 02/25/2025 [facility] Comment on above: Expected: 02/26/2024 (Approximate), Expires: 02/25/2025 Start: 02-25-2024 End: 02-25-2024 Patient encounter procedure 02/25/2024 3:30 PM EDT Office Visit [facility] [address] [address] Enrique Alba MD [address] [address] Encounter for wellness examination in adult; Advance directive discussed with patient; Morbid obesity (CMS/HCC); Adult BMI 45.0-49.9 kg/sq m (CMS/HCC) [facility] Comment on above: Encounter for wellne ss examination in adult; Advance directive discussed with patient; Morbid obesity (CMS/HCC); Adult BMI 45.0-49.9 kg/sq m (CMS/HCC) Start: 12-28-2023 Influenza vaccination Influenza Vacc ine (#1) [facility] Start: 12-27-2022 Influenza vaccination INFLUENZA (#1) [facility] Start: 11-05-2022 Screening for malign ant neoplasm of breast Mammogram [facility] Start: 10-30-2022 End: 12-30-2022 CELIAC SCREEN WITH REFLEX CELIAC SCREEN WITH REFLEX Lab Routine Fatty liver Expected: 10/30/2022, Expires: 12/30/2022 [facility] Work Phone: Comment on above: Expected: 10/30/2022 , Expires: 12/30/2022 Start: 10-30-2022 End: 12-30-2022 Comprehensive metabolic 2000 panel - Serum or Plasma COMP METABOLIC PANEL Lab Routine Fatty liver Expected: 10/30/2022, Expires: 12/30/2022 [facility] Work Phone: Comment on above: Expected: 10/30/2022 , Expires: 12/30/2022 Start: 10-30-2022 End: 12-30-2022 HEPATITIS A ANTIBODY, IGG HEPATITIS A ANTIBODY, IGG Lab Routine Fatty liver Expected: 10/30/2022, Expires: 12/30/2022 [facility] Work Phone: Comment on above: Expected: 10/30/2022 , Expires: 12/30/2022 Start: 04-28-2022 DEPRESSION ASSESSMENT DEPRESSION ASS ESSMENT [facility] Start: 07-12-2021 Mammography MAMMOGRAM [facility] Start: 2020 SHINGRIX VACCINE (1 of 2) SHINGRIX VACCINE (1 of 2) [facility] Start: 03-31-2016 DIABETES SCREEN DIABETES SCREEN [facility] Start: 09-25-2015 COLOGUARD (FIT-DNA) COLOGUARD (FIT-D NA) [facility] Start: 09-25-2015 Colonoscopy COLONOSCOPY [facility] Start: 09-25-2015 COLORECTAL CANCER SCREENING COLORECTAL CANCER SCREENING [facility] Start: 09-25-[address] COLONOGRAPHY [facility] Start: 09-25-2015 FECAL OCCULT BLOOD FECAL OCCULT BLOO D [facility] Start: 09-25-2015 LIPID SCREEN LIPID SCREEN [facility] Start: 09-25-2015 SIGMOIDOSCOPY SIGMOIDOSCOPY [facility] Start: 2010 Mammography MAMMOGRAM [facility] Start: 2000 HPV TESTING HPV TESTING [facility] Start: 09-25-1991 PAP TESTING PAP TESTING [facility] Start: 09-25-1991 Screening for malign ant neoplasm of cervix Pap Smear [facility] Start: 1989 Urine microalbumin profile DTAP,TDAP,TD (1 - Tdap) [facility] Start: 1988 HEPATITIS C SCREENING HEPATITIS C SC REENING [facility] Start: 1988 HIV SCREENING HIV SCREENING [facility] Start: 1970 HEPATITIS B (1 of 3 - 3-dose series) HEPATITIS B (1 of 3 - 3-dose series) [facility] Start: 1970 Screening for malign ant neoplasm of colon [facility] THIN PREP TIS PAP AN D HR HPV DNA THIN PREP TIS PAP AND HR HPV DNA Pathology and Cytology Routine Well woman exam with routine gynecological exam Ordered: 03/29/2024 [facility] Work Phone: Comment on above: Ordered: 03/29/2024 [facility] Immunizations Immunization Date Immunization Notes Care Provider Fa [facility] 01-05-2024 influenza, injectabl e, madin francesca canine kidney, preservative free Enrique Alba MD Work Phone: [facility] 01-05-2024 influenza virus vacc ine, unspecified formulation Enrique Alba MD Work Phone: [facility] 01-20-2023 Influenza, injectabl e, Madin Hudson Canine Kidney, preservative free, quadrivalent Enrique Alba MD Work Phone: [facility] 01-20-2023 influenza virus vacc ine, unspecified formulation Enrique Alba MD Work Phone: [facility] 01-15-2022 Influenza, injectabl e, Madin Francesca Canine Kidney, preservative free, quadrivalent Enrique Alba MD Work Phone: [facility] 01-15-2022 SARS-COV-2 (COVID-19 ) vaccine, mRNA, spike protein, LNP, bivalent, preservative free, 30 mcg/0.3 mL dose, joyce-sucrose formulation Enrique Alba MD Work Phone: [facility] 02-10-2021 zoster vaccine recombinant Enrique Alba MD Work Phone: [facility] 01-27-2021 influenza, injectabl e, quadrivalent, preservative free Enrique Alba MD Work Phone: [facility] 12-02-2020 zoster vaccine recombinant Enrique Alba MD Work Phone: [facility] 02-02-2020 influenza, injectabl e, quadrivalent, preservative free Enrique Alba MD Work Phone: [facility] 02-01-2020 influenza, high dose seasonal, preservative-free Enrique Alba MD Work Phone: [facility] 01-30-2019 influenza, injectabl e, quadrivalent, preservative free Enrique Alba MD Work Phone: [facility] 01-21-2019 Influenza, injectabl e, Madin Hudson Canine Kidney, preservative free, quadrivalent Enrique Alba MD Work Phone: [facility] 01-22-2018 Influenza, injectabl e, Madin Francesca Canine Kidney, quadrivalent with preservative Enrique Alba MD Work Phone: [facility] 01-21-2018 influenza, injectabl e, quadrivalent, preservative free Enrique Alba MD Work Phone: [facility] 01-28-2017 influenza, injectabl e, quadrivalent, preservative free Enrique Alba MD Work Phone: [facility] 01-18-2017 influenza, seasonal, injectable, preservative free Enrique Alba MD Work Phone: [facility] 03-17-2016 influenza, injectabl e, quadrivalent, preservative free Enrique Alba MD Work Phone: [facility] 02-18-2015 influenza, seasonal, injectable, preservative free Enrique Alba MD Work Phone: [facility] 01-09-2015 influenza, injectabl e, quadrivalent, preservative free Enrique Alba MD Work Phone: [facility] 03-17-2013 influenza virus vacc ine, whole virus Enrique Alba MD Work Phone: [facility] Payers Date Payer Category Payer Unknown [employer] [id number] 2022-Present [phone] [address] [address] [place] [address] [id number] 2022 Unknown [id number] 2022 Private Health Insurance [id number] 2022 Unknown [id number] 2022 Self-pay 1970 Unknown [id number] 2.16.840.1.624714.3.579. 2.593 1970 Unknown [id number] 2.16.840.1.029956.3.579. 2.593 1970 Unknown [id number] 2.16.840.1.590433.3.579. 2.593 1970 Unknown [id number] 2.16.840.1.034337.3.579. 2.593 1970 Unknown [id number] 2.16.840.1.946719.3.579. 2.593 1970 Unknown [id number] 2.16.840.1.667867.3.579. 2.1259 1970 Unknown [id number] 2.16.840.1.297642.3.579. 2.1259 1970 Unknown [id number] 2.16.840.1.153671.3.579. 2.1259 1970 Unknown [id number] 2.16.840.1.179146.3.579. 2.9 1970 Unknown [id number] 2.16.840.1.142758.3.579. 2.1258 1970 Unknown [id number] 2.16.840.1.348145.3.579. 2.1258 1970 Unknown [id number] 2.16.840.1.916751.3.579. 2.1258 1970 Unknown [id number] 2.16.840.1.483706.3.579. 2.1258 1970 Unknown [id number] 2.16.840.1.495887.3.579. 2.1258 1970 Unknown [id number] 2.16.840.1.987138.3.579. 2.1258 1970 Unknown [id number] 2.16.840.1.629253.3.579. 2.9 1959 Unknown [id number] Unknown [id number] 2.16.840.1.604112.3.579. 2.531 Social History Date Type Detail Facility Unknown if ever smoked [employer] Other Start: 10-30-2022 End: 12-15-2023 Sex Assigned At [facility] Start: 10-16-2012 End: 09-19-2022 Tobacco smoking status NHIS Never smoked tobacco [facility] Work Phone: Start: 10-16-2012 End: 09-19-2022 Tobacco use and exposure Smokeless tobacco non-user [facility] Work Phone: Start: 11-08-2019 End: 10-30-2022 Alcohol intake Current non-drinker of alcohol (finding) [facility] Start: 1970 Sex Assigned At Not on file [facility] Start: 10-30-2022 End: 12-15-2023 History of Social function [facility] Adult Depression Screening Assessment 2 [facility] Start: 12-16-2023 End: 09-01-2024 Alcoholic beverage [...] Cement Radiopaque Full Dose Individual Pack - [id number] Start: 10-27-2012 Simplex P Bone Cement Radiopaque Full Dose Individual Pack - [id number] Start: 03-30-2013 Comp Fem 4 Lt Kn Cr Ivan Trthln - [id number] Start: 10-27-2012 Ins Tib 3 9mm Kn X3 Cr Trthln - [id number] Start: 03-30-2013 Comp Pat 10mm 32 mm Asym Trthln - [id number] Start: 10-27-2012 Comp Pat 10mm 32 mm Asym Trthln - [id number] Start: 03-30-2013 Baseplt Tib Trth ln 4 Prim - [id number] Start: 10-27-2012 Baseplt Tib Trth ln 3 Prim - [id number] Start: 03-30-2013 Clinical Notes 01-30-2022 to [...] lifestyle. Aggravating factors: [facility] and intermittently she has it while she [...] - Holter monitor documented in this encounter [facility] 08-02-2024 History of Present illness Narrative [...] note 9. Adult BMI 45.0-49.9 kg/sq m ([facility]/HCC) Defines a morbid obesity documented in this encounter [facility] 06-16-2024 Miscellaneous Notes Please notify patient [...] plantar calcaneal enthesophyte documented in this encounter [facility] 06-16-2024 Telephone encounter Note Please notify [...] slight midfoot arthrosis Small plantar calcaneal enthesophyte [facility] 06-15-2024 History of Present illness Narrative [...] See telephone encounter. documented in this encounter [facility] 04-17-2024 History of Present illness Narrative [...] Beatriz Rankin NP documented in this encounter [facility] 04-05-2024 History of Present illness Narrative [...] tablet; Refill: 0 documented in this encounter [facility] 03-29-2024 History of Present illness Narrative [...] glucose tolerance) 09/17/2022 Hepatitis 09/17/2022 HTN (hypertension) ([facility] 09/17/2022 Insomnia due to other mental disorder 09/17/2022 Mixed dyslipidemia ([facility]) 09/17/2022 Morbid obesity ([facility]) 09/17/2022 Obstructive sleep apnea hypopnea, moderate 09/17/2022 Osteoarthritis of joint of toe of right foot 09/17/2022 Other chronic pain 09/17/2022 Overactive bladder 09/17/2022 Primary osteoarthritis, right hand 09/17/2022 Recurrent major depressive disorder, in partial remission (HCC) ([facility]) 09/17/2022 Sleep disorder 09/17/2022 Status post bilateral knee replacements 09/17/2022 Enuresis 09/17/2022 Urinary incontinence 09/17/2022 Adult BMI 45.0-49.9 kg/sq m ([facility]) 05/14/2023 Restless leg syndrome 08/14/2023 Pre-diabetes 03/20/2024 Resolved Ambulatory Problems Diagnosis Date Noted Gynecological disease 09/17/2022 Pain in female genitalia on intercourse 09/17/2022 Piriformis syndrome of left side 09/17/2022 Past Medical History: Diagnosis Date Anxiety Arthritis Back problem Bladder infection Chest wall abscess COVID-19 11/2019 Depression (CMS/HCC) Kidney stones Knee problem Migraine headache (CMS/HCC) Moderate single current episode of major depressive disorder (HCC) (CMS/HCC) Obesity PMB (postmenopausal bleeding) Post-acute sequelae of COVID-19 ([facility]) Sprain of left ankle Swelling Varicella Vision impairment HISTORY PAST MEDICAL HISTORY SOCIAL HISTORY Past Medical History: Diagnosis Date Anxiety Arthritis Back problem Bladder infection Chest wall abscess COVID-19 11/2019 Depression (CMS/HCC) ESS (euthyroid sick syndrome) HTN (hypertension) (CMS/HCC) Kidney stones Knee problem Migraine headache (CMS/HCC) Moderate single current episode of major depressive disorder (HCC) (CMS/HCC) Obesity Piriformis syndrome of left side 09/17/2022 [...] JOINT REPLACEMENT OTHER SURGICAL HISTORY bilateral arthroscopy [place] LAP,CHOLECYSTECTOMY 2016 TOTAL KNEE ARTHROPLASTY Bilateral 2014 [...] nursing note reviewed. Exam conducted with a mental telepathist present. Vitals: Estimated body mass index is [...] of: OSVALDO Wilks documented in this encounter [facility] 03-11-2024 History of Present illness Narrative [...] mg was sent. documented in this encounter [facility] 02-25-2024 History of Present illness Narrative Images from the original note were not included. Patient ID: Naima Rios is a 53 y.o. female who presents for: See Scanned Wellness packet Advance Directive/Living Will: No Health Care Power of Canvas Baster Jumpbasting: No Review of Systems Constitutional: Positive for [...] through a living will, durable power of claim attorney for healthcare, or other advanced directives. [...] with tomosynthesis; Future documented in this encounter [facility] 12-25-2023 Telephone encounter Note Rx sent [facility] 12-25-2023 Miscellaneous Notes Rx sent documented in this encounter [facility] 12-16-2023 History of Present illness Narrative [...] major depressive disorder, in partial remission (HCC) ([facility]) Chronic problem, stable, overall doing well. In [...] (CMS/HCC) 4. Adult BMI 45.0-49.9 kg/sq m ([facility]/HCC) documented in this encounter [facility] 12-05-2022 Note HNO ID: [id number] Author: Taylor Gee RD Service: ? Author Type: Registered Dietitian Type: Progress Notes Filed: 12/05/2022 2:43 PM Note Text: [facility] Nutrition Therapy: Virtual Consult - Initial Assessment I have communicated my name and active licensure. The patient?s identity and physical location were verified at the time of this visit. Either the patient or their legal medical billing representative has been informed of the risks [...] cheese or fruit or none Lunch - [id number] w/ chicken/ham, makenzie, onion, pepper FF ranch [...] Activity: Sedentary (Little or no exercise: <1x/week) -Previously-Jajim -Belongs to gym Anthropometrics: Height: Last 1 [...] Rios DATE: 12/05/2022 TIME: 2:05 PM PAGER: [phone] [facility] 12-05-2022 History of Present illness Narrative [facility] Nutrition Therapy: Virtual Consult - Initial Assessment I have communicated my name and active licensure. The patient s identity and physical location were verified at the time of this visit. Either the patient or their legal medical billing representative has been informed of the risks [...] cheese or fruit or none Lunch - [id number] w/ chicken/ham, makenzie, onion, pepper FF ranch [...] Rios DATE: 12/05/2022 TIME: 2:05 PM PAGER: [phone] documented in this encounter [facility] 10-30-2022 Note HNO ID: [id number] Author: Radha Rios MD Service: ? Author Type: Physician Type: Progress Notes Filed: 10/30/2022 2:34 PM Note Text: Hepatology Clinic Mindy Rcihey MD, FACG, FAASLD Director, [facility] Hepatology [facility] Consult Requested By: Mike Saeed [address] [facility] [id number] for evaluation of her fatty liver .. 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 Please feel free to contact me if I can be of further assistance to you {I spent 45 minutes in the visit, with more than 50% of the total xltv-jq-paww time of the visit in counseling / coordination of care. [facility] 10-30-2022 History of Present illness Narrative Images from the original note were not included. Hepatology Clinic Mindy Richey MD, FACG, FAASLD Director, [facility] Hepatology [facility] Consult Requested By: Mike Saeed [address] [facility] [id number] for evaluation of her fatty liver .. 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 Please feel free to contact me if I can be of further assistance to you {I spent 45 minutes in the visit, with more than 50% of the total dwnz-ly-zxlt time of the visit in counseling / coordination of care. documented in this encounter [facility] 08-01-2022 Note HNO ID: [id number] Author: Mariajose Asher MD Service: ? Author Type: Physician Type: Progress Notes Filed: 08/01/2022 3:52 PM Note Text: Rheumatology Outpatient Clinic Date of Service: 08/01/2022 Patient: Naima Rios Medical Record: [id number] Primary Care Physician: Zeferino Flores Last Rheumatology visit: None at [facility] History of Present Illness Naima Rios [...] , low transverse COLONOSCOP W/ OR W/O [facility] SPEC Colonoscopy EGD EXTRACTION, ERUPTED TOOTH [...] as needed. meloxicam (more content not included)... [facility] 08-01-2022 History of Present illness Narrative Images from the original note were not included. Rheumatology Outpatient Clinic Date of Service: 08/01/2022 Patient: Naima Rios Medical Record: [id number] Primary Care Physician: Zeferino Flores Last Rheumatology visit: None at [facility] History of Present Illness Naima Rios [...] , low transverse COLONOSCOP W/ OR W/O [facility] SPEC Colonoscopy EGD EXTRACTION, ERUPTED TOOTH [...] There is narrowing of all interphalangeal joints. 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 Last MRI Hand - Impression Only No resulted procedures found. Last XR Chest - Impression Only No resulted procedures found. Last XR Cervical Spine - Impression Only No resulted procedures found. Health Maintenance Current Immunizations Never Reviewed Name Date COVID-19 vaccine, bivalent (PFIZER-BIONTECH) 01/15/2022 COVID-19 vaccine, monovalent (PFIZER-BIONTECH) 07/27/2021 , [...] which included preparing to see the patient, [id number]-dg-[id number] patient care, completing clinical documentation, obtaining and/or [...] Time: 3:09 PM documented in this encounter [facility] 05-07-2022 Evaluation note Encounter Date Diagnosis Assessment Notes Apr, Fatty liver (ICD-10 - K76.0) LABS PATIENT ENCOURAGED WEIGHT LOSS. REFERRAL TO WEIGHT LOSS CLINIC WITH DR. LI. Apr, Elevated liver enzymes (ICD-10 - R74.8) [employer] Other 10-05-2022 Evaluation note* Encounter Date Diagnosis [...] start vitamin e and milk thistle OTC [employer] Other Evaluation noteNo [facility] [employer] Other Evaluation note* Diagnosis Erosive osteoarthritis of both hands- Primary Primary osteoarthritis involving multiple joints NSAID long-term use Encounter for long-term (current) use of non-steroidal anti-inflammatories [facility] Fatty liver- Primary Other chronic nonalcoholic liver disease Class 3 severe obesity due to excess calories in adult, unspecified BMI, unspecified whether serious comorbidity present (HCC) [facility] Fatty liver Other chronic nonalcoholic liver disease [facility] Encounter for wellness examination [...] for breast cancer documented in this encounter [facility]* Diagnosis Mixed dyslipidemia (CMS/HCC) documented in this encounter [facility]* Diagnosis Pre-diabetes- Primary Other abnormal glucose Restless leg syndrome Restless legs syndrome (RLS) Mixed dyslipidemia (CMS/HCC) documented in this encounter [facility]* Diagnosis Well woman exam with routine gynecological exam Routine gynecological examination Yeast infection of the skin Candidiasis of skin and nails documented in this encounter [facility]* Diagnosis Pre-diabetes Other abnormal glucose documented in this encounter [facility] note* Diagnosis Acute non-recurrent pansinusitis- Primary documented in this encounter [facility]* Diagnosis Insomnia due to other mental disorder Recurrent major depressive disorder, in partial remission (HCC) ([facility]) Morbid obesity ([facility]) Morbid obesity Adult BMI 45.0-49.9 kg/sq m ([facility]/HCC) documented [facility]* Diagnosis Recurrent major depressive disorder, in partial remission (HCC) ([facility])- Primary documented in this encounter [facility] [...] major depressive disorder, in partial remission (HCC) ([facility]) Primary hypertension ([facility]) Unspecified essential hypertension Mixed dyslipidemia ([facility]) Pre-diabetes Other abnormal glucose Morbid obesity ([facility]) Morbid obesity Adult BMI 45.0-49.9 kg/sq m ([facility]) documented in this encounter [facility]* Diagnosis Palpitations- Primary Tachycardia Unspecified tachycardia documented [facility] Narrative - Reported* Type Description Date Medical History Unspecified essential hypertensi on Medical History Hypercholesterolemia Medical History Depression with anxiety Surgical History C/Section 2005 Surgical History Bilateral knee replacement 2012 Surgical History cholecystectomy Surgical History wisdom teeth Surgical History cyst removal Hospitalization History See past surgical hx [employer] Other Reason for visit NarrativePT HERE REQ OF DR. ALBA FOR ELEVATED LIVER ENZYMES, (referral note received)[employer] Other Summary Purpose Family History No Family History Records FoundNo Family History Records FoundNo Family History Records FoundNo Family History Records FoundNo Family History Records Found Advance Directives No Advanced Directives Records FoundNo Advanced Directives Records FoundNo Advanced Directives Records FoundNo Advanced Directives Records FoundNo Advanced Directives Records Found Reason for Referral Specialty Diagnoses / Procedures Referred By Bessie t Referred To Contact Nutrition Diagnoses Fatty liver Procedures CONSULT TO NUTRITION THERAPY MEDICAL NUTRITION ASSMT&IVNTJ INDIV EACH [place] MEDICAL NUTRITION ASSMT&IVNTJ INDIV EACH [place] MEDICAL NUTRITION ASSMT&IVNTJ INDIV EACH [place] NUTRITION ASS[place]&IVNTJ INDIV EACH 15 [place] Radha Abdul MD [address] [place] [address] Referral ID Status Reason Start Date Expiration Date Visits Requested Visits Authorized [id number] Authorized PCP Requested Referral 10/30/2022 01/28/2023 1 1 Additional Source Comments INFORMATION SOURCE (unrecogn ized section and content) DATE CREATED AUTHOR 12/24/2019 [facility] DATE CREATED AUTHOR AUTHOR'S ORGANIZ ATION 11/14/2021 [facility] DATE CREATED AUTHOR AUTHOR'S ORGANIZ ATION 03/07/2022 [facility] DATE CREATED AUTHOR AUTHOR'S ORGANIZ ATION 12/06/2022 [facility] DATE CREATED AUTHOR AUTHOR'S ORGANIZ ATION 09/04/2024 [facility] Specialists EPIC REASON FOR VISIT [...] NEW DDI PATIENT Mike Saeed DO [address] [place] [id number] Radha Abdul MD [address] [place] [id number] Referral ID Status Reason Start Date Expiration Date Visits Re quested Visits Authorized [id number] Denied 10/30/2022 04/27/2023 1 0 Reason Comments [...] Radha Abdul MD [address] [place] [address] Referral ID Status Reason Start Date Expiration Date V isits Requested Visits Authorized [id number] Closed PCP Requested Referral 10/30/2022 01/28/2023 1 [...] or prosecute any alcohol or drug abuse patient.[facility] the event this information is protected by the Federal Confidentiality of Alcohol and Drug Abuse Patient Records regulations: The Federal rules restrict any use of the information to criminally investigate or prosecute any alcohol or drug abuse patient.[facility] the event this information is protected by the Federal Confidentiality of Alcohol and Drug Abuse Patient Records regulations: The Federal rules restrict any use of the information to criminally investigate or prosecute any alcohol or drug abuse patient.[facility] Care Teams (unrecognized sec tion and content) Trap Operator Relationship Specialty Start Date End Date Zeferino Flores PCP - General Internal Medicine 08/26/12 Trap Operator Relationship Specialty Start Date End Date Zeferino Flores PCP - General Internal Medicine 08/26/12 Trap Operator Relationship Specialty Start Date End Date Zeferino Flores PCP - General Internal Medicine 08/26/[address] [facility] [address] [place] [address] Registered Dietitian Nutrition 12/05/22 Trap Operator Relationship Specialty Start Date End Date Enrique Alba MD (Fax) PCP - General Family Medicine 09/16/22 Trap Operator Relationship Specialty Start Date End Date Enrique Alba MD (Fax) PCP - General Family Medicine 09/16/22 Trap Operator Relationship Specialty Start Date End Date Enrique Alba MD (Fax) PCP - General Family Medicine 09/16/22 Trap Operator Relationship Specialty Start Date End Date Enrique Alba MD (Fax) PCP - General Family Medicine 09/16/22 Trap Operator Relationship Specialty Start Date End Date Enrique Alba MD (Fax) PCP - General Family Medicine 09/16/22 Trap Operator Relationship Specialty Start Date End Date Enrique Alba MD (Fax) PCP - General Family Medicine 09/16/22 Trap Operator Relationship Specialty Start Date End Date Enrique Alba MD (Fax) PCP - General Family Medicine 09/16/22 Trap Operator Relationship Specialty Start Date End Date Enrique Alba MD (Fax) PCP - General Family Medicine 09/16/22 Trap Operator Relationship Specialty Start Date End Date Enrique Alba MD [address] [place] [address] PCP - General Family Medicine 09/16/22 Trap Operator Relationship Specialty Start Date End Date Enrique Alba MD [address] [place] [id number] PCP - General Family Medicine 09/16/22 Trap Operator Relationship Specialty Start Date End Date Enrique Alba MD (Fax) PCP - General Family Medicine 09/16/22 Trap Operator Relationship Specialty Start Date End Date Enrique Alba MD (Fax) PCP - General Family Medicine 09/16/22 Trap Operator Relationship Specialty Start Date End Date Enrique Alba MD (Fax) PCP - General Family Medicine 09/16/22 Trap Operator Relationship Specialty Start Date End Date Enrique Alba MD (Fax) PCP - General Family Medicine 09/16/22 Trap Operator Relationship Specialty Start Date End Date Enrique Alba MD (Fax) PCP - General Family Medicine 09/16/22 Trap Operator Relationship Specialty Start Date End Date Enrique Alba MD PCP - General Family Medicine 09/16/22 FOR [...] BE BASED ON THE PRIMARY CLINICAL RECORDS. [employer] [facility]. provides no warranty or guarantee of the accuracy or completeness of information in this document.
[2024-11-04] MEDS: REGADENOSON 0.4 MG/5 ML SYRINGE IV (09:40)
--- NOTE | 2024-11-04 09:42 | PC.NURSE ---
Nursing Note Cardiac Stress Test Reviewed: Medication, allergies and patient history reviewed. Stress Test: [x ] Patient tolerated stress test well. [ ] Patient unable to tolerate walking on treadmill. Switched to Lexiscan stress test. [x ] No chest pain noted per patient [ ] Chest pain that resolved prior to leaving stress lab. [ x] No dyspnea noted. [ ] Dyspnea that resolved prior to leaving stress lab. [ x] Patient left stress lab asymptomatic and hemodynamically stable. [ ] Patient taken to the Emergency Room due to non-resolving symptoms following stress test. [ ] Patient achieved target heart rate. [ ] Patient unable to achieve target heart rate. [ ] Aminophylline administered as reversal agent to Lexiscan (Regadenoson). [ ] Nitro administered. Nursing Comments:
--- NOTE | 2024-11-04 12:35 | PM.STRESS ---
Stress Test Stress Test Requesting physician: REDDY ALBA Procedure: Lexiscan pharmacological stress test General Information: Reason for Stress Test: [Shortness of breath, premature ventricular contractions, tachycardia] Cardiac History and Risk Factors: [AT, diabetes mellitus, dyslipidemia] Resting 12 - Lead Electrocardiogram: Normal sinus rhythm Normal ECG Stress Test: Protocol: [Lexiscan stress test] Exercise Capacity: [N/A] Blood Pressure Response: [Resting blood pressure was 150/70 with lowest blood pressure of 146/80] Rhythm: [Sinus, infrequent premature ventricular contractions and premature supraventricular contractions] ST - Response: [No significant ST-T wave abnormalities] Patient Response: [Shortness of breath after Lexiscan, resolved prior to leaving] Interpretation: 1. No ischemic EKG changes on Lexiscan pharmacological stress test 2. Infrequent ventricular and supraventricular contractions 3. Shortened ID interval after during recovery; consider a 30-day event monitor particularly given the arrhythmias 4. Nuclear images are to be read, interpreted, and reported separately
== END 2024-11-04 08:45 | disposition home or self-care (01) ==
LOC: CARD 08:45
PROVIDERS: PCP Family Medicine; Visit Provider Family Medicine
DX: I20.89 Other forms of angina pectoris (principal); R00.0 Tachycardia, unspecified; I49.3 Ventricular premature depolarization; Z96.653 Presence of artificial knee joint, bilateral; Z74.09 Other reduced mobility; G89.29 Other chronic pain; E66.01 Morbid (severe) obesity due to excess calories; E78.2 Mixed hyperlipidemia; I10 Essential (primary) hypertension
CPT/HCPCS: 93017; J2785

== ENCOUNTER 2024-11-30 14:15 | Outpatient (OUT) | payer OTHER, SELFPAY | END 2024-11-30 14:16 | disposition home or self-care (01) | LOC: CARD 14:16 | PROVIDERS: PCP Family Medicine; Visit Provider Family Medicine | DX: I20.89 Other forms of angina pectoris (principal); I49.3 Ventricular premature depolarization; R00.0 Tachycardia, unspecified; R00.2 Palpitations | CPT/HCPCS: 93270 ==

== ENCOUNTER 2025-03-07 07:18 | Outpatient (OUT) | payer OTHER, SELFPAY ==
--- OUTSIDE RECORDS SUMMARY | 2025-03-02 04:51 | XMS_ITS | Continuity of Care Document ---
Author Organization [facility] Address [address] [place] [id number] Phone Care Team Providers Care Admitting Coordinator Name Role Phone Maribeth Galvez APRN Primary Care Provider Maribeth Galvez APRN Attending Provider Care Teams Patient Care Team Team Status: Active Member Role/Relationship Status Dates Maribeth Galvez APRN REFRACTORY WORKER-C Primary Care Provider Active Visit Care Team Team Status: Inactive Member Role/Relationship Status Dates Maribeth Galvez APRN REFRACTORY WORKER-C Primary Care Provider Active Start: February 02, 2025 End: February 02, 2025Maribeth Galvez APRN REFRACTORY WORKER-CAttending ProviderActive Start: February 02, 2025 End: February 02, 2025 Patient Care Team Team Status: Inactive Member Role/Relationship Status Dates Maribeth Galvez APRN REFRACTORY WORKER-C Primary Care Provider Active Start: February End: March 02, 2025Maribeth Galvez APRN REFRACTORY WORKER-CAttending ProviderActive Start: March 02, 2025 End: March 02, 2025 Chief Complaint and Reason for Visit Chief Complaint Admit Date Est Care February 02, 2025 8: 46am 4 WK F/U March 02, 2025 8 :20am Reason for Visit Admit Date Depression with anxiety February 02 8:46am Hypercholesterolemia February 02, 2025 8 :46am Low back pain February 02, 2025 8: 46am Restless leg February 02, 2025 8: 46am Type 2 diabetes mellitus February 02 8:46am Anxiety March 02, 2025 8 :20am Type 2 diabetes mellitus March 02, 025 8:20am Allergies, Adverse Reactions, Alerts Allergen Type Severity Reaction Last Updated Verified Status No Known Allergies Allergy Unknown March 02, 2025 8:30amYesActive Social History Smoking Status Status Start Date End Date Date of Observa tion Never smoked tobacco (finding) February 02, 2025 9:00am Observation Status Observation Response Date of Response Legal Sex Female (finding) [facility] 1970 Family History Relationship Condition Age at Onset Recorded Date/T prema family member Adopted Unknown motherMalignant neoplasmUnknownDeceasedUnknown Problems Active Problems Problem Diagnosis/Recorded Date Onset Date Stat us Depression with anxiety February 02, 2025 7:47am Unkno wn Active Low back pain February 03, 2025 7:19pm Unknown Ac tive Fatty liver February 02, 2025 7:47am Unknown Act holden Type 2 diabetes mellitus February 03, 2025 7:14pm Unkn own Active Anxiety March 02, 2025 8:48am Unknown Ac tive Hypercholesterolemia February 02, 2025 7:47am Unknown Active Restless leg February 03, 2025 7:19pm Unknown Act holden Medications Medication Status Dose Units Route Directions Qty Days Refills S tart Date Stop Date End Date Reason(s) Instructions Adherence Lisinopril 20 mg tablet Active 20 MG PO Daily February 20, 2025 11:00pmComplies with drug therapyAtorvastatin 20 mg tablet Qybbeqtkvqow27LPJBPwrwc at bedtimeMarch 30, 2018 [facility] 7:58amhyperlipidemiaSertraline 100 mg gytyvvRmigmtjvahdy407RMCJYpwga at bedtime March 30, 2018 [facility] 20[facility] 7:59amLosartan 100 mg tablet Kgnlynkbpigs836ZLAHHvmhm at bedtimeMarch 30, 2018 12:00[facility] 2024 7:59amhtnDocusate Sodium (Colace) 100 mg iqcguvmRkkthevywcni819ENKNYjbpd daily as needed for xarjunpoeepe455Krauceip 10th, 2018 9:46[facility] 2024 7:58am Ibuprofen 600 mg byizugYkdpiwypqjlk941LGDWQ2J as needed for huqz054Byiatkvw 10th 2018 12:00amOctober 2024 7:59amBuspirone 5 mg zrxbdmXgghsf8PZNOEziga prttw16067Qksezsby 5th, 2025 12:00amAnxiety Anxiety disorder, unspecifiedComplies with drug therapyTirzepatide (Mounjaro) 2.5 mg/0.5 mL pen injectorActive2.5MGSUBCUTevery week2.5300March 02, 2025 12:00amType 2 diabetes mellitus Type 2 diabetes mellitus without complicationsfor 4 weeksComplies with drug therapyBlood-Glucose,Glove Turner And Former,Cont (Dexcom G7 Glove Turner And Former) miscActive0.Route10 March 02, 2025 12:00amCheck blood sugar dailyBlood-Glucose Sensor (Dexcom G6 Sensor) deviceActive0.Nyhrm34RhzavtspMarch 02, 2025 12:00amTo check blood sugar dailyRopinirole 1 mg hfmdpxSviugq0BFIVIhncv at bedtimeOct2024 11:00pm administer 1-3 hours before bedtimeComplies with drug therapyGabapentin 100 mg ltsilngIgaoaf037OWGSWfbfm times daily as neededOct2024 11:00pmComplies with drug therapySemaglutide (Ozempic) 0.25 mg or 0.5 mg(2 mg/1.5 mL) pen injectorDiscontinued0.25MGSUBCUTevery weekOct2024 11:00pmOct2024 7:15pmfor 4 weeksSertraline (Zoloft) 25 mg iaopumAbmseefdecei04RSFNYpqhl01 300October 2024 11:00pmMarch 02, 2025 8:48amAnxiety with depression Other specified anxiety disordersSemaglutide (Ozempic) 0.25 mg or 0.5 mg(2 mg/1.5 mL) pen injectorDiscontinued0.25MGSUBCUTevery week1.50Oct2024 7:14pmMarch 02, 2025 8:52amType 2 diabetes mellitus Type 2 diabetes mellitus without complicationsfor 4 weeks Immunizations Immunization Event Date Not Given Reason Dose Number Production Controller Lot Number Reason(s) Given Vaccine Information Statement (VIS) Detail Administration Location Influenza, seasonal, injectable, pf February [id number] [facility] Relevant Diagnostic Tests and/or Laboratory Data Laboratory Results Test Collection Date/Time Result Date/Time Result Interpretation Reference Range Result Comment Performing Site Bedside Hemoglobin A1c March 02, 2025 9:18am Novem 2024 9:19am 6.5 % Vital Signs Vital Reading Result Reference Range Collection Date/Time Height 63 [in_i] February 02, 2025 7:64heIyqxsz066.92 kgOctober 2024 7:54amBody Temperature 97.7 [degF]97.6-99.0October 2024 7:54amHeart Ipma288 /vfn75-180Oexkela 2024 7:54amOxygen saturation by Pulse xssmxuko75 %95-100Oct2024 7:54amBP Fyoepfld570 mm[Hg]100-140October 2024 7:54amBP Ywhenruvr49 mm[Hg] 60-100October 2024 7:54amBMI (Body Mass Index)47.9 kg/l8Lnutpon 2024 7:87yfZrsadq25 [in_i]March 02, 2025 8:50ltXtyzqs219.10 kgNovember 2024 8:27amHeart Wyky823 /pmy31-617Tyxlxwxv 5th, 2025 8:27amRespiratory rate14 /min 12-24Nov2024 8:27amOxygen saturation by Pulse bqitqfsl13 %95-100 March 02, 2025 8:27amBP Ojgprbfg874 mm[Hg]100-140Nov2024 8:27amBP Hzyppmcgd281 mm[Hg]60-100Nov2024 8:27amBMI (Body Mass Index)47.2 kg/h4Nisjnhsa2024 8:27am Advance Directives Advance Directive Response Recorded Date/ Time Advance Directives No February 4:41pm Insurance Providers Guarantor Javed Cuadra Address [address] [facility] [address]Ocxcgir Info.Home Phone: Payer Group Member ID Coverage Type Subscriber Relationship to Subscriber Effective Date Expiration Date [employer] Id: [id number] B Fleming , D Id: [id number] [address] [facility] [address] Home Phone: Encounters Encounter Location(s) Arrival/Admit Date Discharge/Departure Date Discharge/Departure Disposition Provider(s) Departed Physician/ Provider Office Visit -[facility] February 02, 2025 8:46am February 02, 2025 9:46am Discharged to home care or self care (routine discharge) Maribeth Galvez APRN CNP Departed Physician/ Provider Office Visit -[facility] March 02, 2025 8:20am March 02, 2025 9:47am Discharged to home care or self care (routine discharge) Maribeth Galvez APRN CNP Recent Diagnosis Onset Date Admit Date Depression with anxiety Unknown February 02, 2025 8:46am Hypercholesterolemia Unknown January 8:46am Low back pain Unknown February 02 8:46am Restless leg Unknown February 02 8:46am Type 2 diabetes mellitus Unknown February 02, 2025 8:46am Anxiety Unknown March 02 8:20am Type 2 diabetes mellitus Unknown 2024 8:20am Assessments Diagnosis Onset Date Resolution Status Admit Date Depression with anxiety acuteOctober 2024 8:46amHypercholesterolemiaacuteOctober 2024 8:46am Low back painacuteOctober 2024 8:46amRestless legacuteOctober 2024 8:46amType 2 diabetes mellitusacuteOctober 2024 8:46amAnxietyacuteNovember 2024 8:20amType 2 diabetes mellitusacuteNovember 2024 8:20am Plan of Treatment Author Maribeth Galvez [facility] InchoredOctober 2024 7:33ohO4t 7.4 Continue Ozempic ??Prior to your visit today we reviewed your chart and outlined the testing and treatment needed for your care. We discussed possible complications of diabetes including risk of heart disease, stroke, and kidney disease. Your goal is to keep your HgA1C below 7 (preferably <6.5) and your blood pressure less than 130/85 (and preferably < 120/80) and maintaining a healthy weight with a BMI less than 26. We are working together to achieve these goals with the following plan; healthier diet, understanding your medications, and your compliance. Barriers to these goals have been discussed. Patient is not suicidal or homicidal at this time. Discussed treatment options with patient today. It was decided in collaboration with the patient to start daily for management with sertraline depression/anxiety. Medication profile and possible SE reviewed with patient today. Patient to take medication as directed and prescribed. Do not skip/miss doses and do not stop abruptly. Patient is not interested in counseling at this time. Warning s/s reviewed with patient today. Patient to go immediately to the ER should patient experience any of these. Follow up in 4 weeks to assess symptoms and medication effectiveness. Patient verbalizes understanding and agrees to treatment plan. Will obtain labs and records. Continue Ropinirole. Beneficial for symptoms Uses Gabapentin as needed when has flare of back pain sciatica. Does not need refills today. Future Tests Future scheduled test information is unavailable Pending Tests Pending diagnostic test information is unavailable Future Visits Future appointment information is unavailable Future Procedures Future procedure information is unavailable Future Medications Future medication information is unavailable Patient Instructions Instruction Admit Date Low back pain in adults February 02 8:46am
--- OUTSIDE RECORDS SUMMARY | 2025-03-07 07:20 | XMS_ITS | Clinical Summary ---
Author Organization [facility] Address [address] [place] [address] Care Team Providers Care Azure Principal Solution Specialist Name Role Phone Maribeth Galvez NP Primary Care Provider [phone] Allergies Active AllergyReactionsCriticalityNoted DateCommentsDuloxetine HclUnknown 10/15/2021 Other Reaction(s): severe drowsiness MetforminGI qmnoopgadsb55/14/2024 Medications MedicationSigDispense QuantityRefillsLast FilledStart DateEnd DateStatus albuterol 90 mcg/actuation inhaler Inhale 2 puffs every 6 (six) hours if needed.09/26/2017Active sertraline (Zoloft) 25 mg tablet Take 25 mg by mouth in the morning.5Active gabapentin (Neurontin) 300 mg capsule Take 300 mg by mouth at bedtime.Active rOPINIRole (Requip) 1 mg tablet Take 1 mg by mouth at bedtime.Active Ozempic 0.25 mg or 0.5 mg (2 mg/3 mL) pen injector Inject 0.25 mg under the skin every 7 (seven) days.5Active lisinopril 20 mg tablet Indications:Primary hypertension,Diabetes mellitus type II, non insulin dependent (CMS/HCC)Take 1 tablet (20 mg) by mouth in the morning. 30 tablet 111ctive Active Problems ProblemNoted DateDiagnosed DateDepression with spnzccw9102/15/2025 Ofhrbbfsqisxripthiei93/21/2025Hot chbvqbo7905/12/2024Menopausal jlicdbvw64/15/2025 Pre-oqzcdutb69/23/2024estless leg /18/2024dult BMI 45.0-49.9 kg/sq m 05/14/2023rthritis of left hand05/23/2023Chronic bhbhfjl5809/17/2022ependence on other enabling faytaaq9009/17/20220354Vqmcjyis63/23/2023ESS (euthyroid sick syndrome) 09/17/2022Fatty liver disease, lkjvzmgdjenu26/23/4652Xjnfnramx20/23/2023HTN (hypertension)09/17/2022Insomnia due to other mental lyhkbtle98/23/2023Mixed zoyxmbcndjvh43/23/2023Morbid zlvmfoa0009/17/2022Obstructive sleep apnea hypopnea, ljtgiujz21/23/2023Osteoarthritis of joint of toe of right foot09/17/2022Other chronic pain09/17/2022Overactive kdywdfk4909/17/2022rimary osteoarthritis, right hand09/17/2022Recurrent major depressive disorder, in partial remission 09/17/2022Status post bilateral knee rxtwjpovmhih03/23/2023Sleep disorder 09/17/2022S/P total knee hrybhbgumgkw17/02/2013ilateral knee pain08/26/2012 Primary localized osteoarthrosis, lower leg02/06/2005 Encounters DateTypeDepartmentCare YxsvWrwhyicpqxt33/23/2025Orders Only [facility] [address] [place] [address] Glenny Brooke MA LVH (left ventricular hypertrophy) (Primary Dx); Shortness of rlupvy7402/16/2025 3:40 PM EDTOffice Visit [facility] [address] [place] [address] Leonides Gillette MD Shortness of breath (Primary Dx); Tachycardia; Primary hypertension; Diabetes mellitus type II, non insulin dependent (CMS/HCC)from Last 3 Months Family History * Patient is adopted Medical HistoryRelationNameCommentsNo Known ProblemsFatherNo Known Problems MotherRelationNameStatusCommentsFatherMother Social History Tobacco UseTypesPacks/DayYears UsedDateSmoking Tobacco: NeverSmokeless Tobacco: Never Tobacco Cessation:Counseling Given: Not Answered Alcohol UseStandard Drinks/WeekCommentsNot Currently0 (1 standard drink = 0.6 oz pure alcohol)CommentsUnknownSex and Gender InformationValueDate Recorded Sex Assigned at FujglKljxvq85/22/2025 1:53 PM EDTLegal DilCccdnc89/05/2025 2:36 PM EDTGender JzszlgkaYqyros82/22/2025 1:53 PM EDTSexual OrientationHeterosexual or Ljsdtnei06/22/2025 1:53 PM EDT Last Filed Vital Signs Vital SignReadingTime TakenCommentsBlood Lzkogrvm921/9902/16/2025 3:27 PM EDT Txyob872802/16/2025 3:27 PM EDTTemperature--Respiratory Rate--Oxygen Pujufbyjya27% 02/16/2025 3:27 PM EDTInhaled Oxygen Concentration--Rsgymz569 kg (270 lb) 02/16/2025 3:27 PM XPXWmrula924 cm (5' 3 )02/16/2025 3:27 PM EDTBody Mass Index 47.8302/16/2025 3:27 PM EDT Plan of Treatment DateTypeDepartmentCare Team (Latest Contact Info)Pztrrjqgqjl69/01/2025 9:00 AM ESTOffice Visit [facility] [address] [place] [address] Leonides Gillette MD [address] [place] [phone] Health MaintenanceDue DateLast DoneCommentsCT Gzaephurjudu62/30/1971Colonoscopy 1970Diabetes: Hemoglobin A1C1970FOBT1970Sigmoidoscopy 1970Diabetes: Retinopathy Yyaspkbkk02/30/1981Depression Screening 1982Diabetes: Urine Protein Rckuorbgd00/30/1990Hepatitis B Vaccines (1 of 3 - 19+ 3-dose series)1989Pneumococcal Vaccine: Pediatrics (0 to 5 Years) and At-Risk Patients (6 to 64 Years) (1 of 2 - PCV)1989Adult Tetanus 1992HPV/Qgdezv1709/24/20006825Yicdvchdq16/17/202303/3546OEP1409/18/2024 09/19/2023OVID-19 Vaccine ( season)/12/2023, 01/20/2023, 01/15/2022, Additional history existsInfluenza Vaccine (#1)/12/2023, 01/20/2023, 01/15/2022, Additional history existsColorectal Cancer Screening 09/18/2026FIT-DNA/ervical Cancer Crrkkzniz68/02/2027Pap Smear/05/2023Zoster GwoenuawNvftegcfw12/16/2021, 12/02/2020HIB VaccinesAged OutNo longer eligible based on patient's age to complete this topic HPV VaccinesAged OutNo longer eligible based on patient's age to complete this topicIPV VaccinesAged OutNo longer eligible based on patient's age to complete this topicMeningococcal B VaccineAged OutNo longer eligible based on patient's age to complete this topicMeningococcal VaccineAged OutNo longer eligible based on patient's age to complete this topicRotavirus VaccinesAged OutNo longer eligible based on patient's age to complete this topic Insurance Care Teams Team MemberRelationshipSpecialtyStart DateEnd Date Maribeth Galvez NP [address] [place] [address] [facility] - [facility] Xqtyecfw44/22/25
--- OUTSIDE RECORDS SUMMARY | 2025-03-07 07:20 | XMS_ITS | Clinical Summary ---
Author Organization [facility] Address [address] [place] [address] Care Team Providers Care Paper Supervisor Name Role Phone Enrique Alba MD Primary Care Provider Allergies Active AllergyReactionsCriticalityNoted DateCommentsDuloxetine Hcl10/15/2021 Other Reaction(s): severe drowsiness MetforminGI oaqitmbipgp04/14/2024 Medications MedicationSigDispense QuantityRefillsLast FilledStart DateEnd DateStatus diclofenac sodium 3 % gel Apply 1 application topically every 6 (six) hours.2Active melatonin 10 MG tablet Take 1 tablet by mouth at bedtime.Active albuterol HFA (ProAir HFA) 90 mcg/act inhaler Indications:BronchitisInhale 2 puffs every 6 (six) hours if needed for wheezing 18 g 4Active metFORMIN XR (Glucophage-XR) 750 MG 24 hr tablet Indications:Pre-diabetesTake 1 tablet (750 mg) by mouth in the morning and 1 tablet (750 mg) before bedtime. Do not crush, chew, or split.. 60 tablet 5Active Additional Information Patient not taking.Reported on 09/01/2024 gabapentin (Neurontin) 300 MG capsule Indications:Restless leg syndromeTake 1 capsule (300 mg) by mouth at bedtime 90 capsule 5Active fenofibrate (Triglide) 160 MG tablet Indications:Mixed dyslipidemiaTake 1 tablet (160 mg) by mouth Daily 90 tablet 104/07/2025Active gabapentin (Neurontin) 100 MG capsule Indications:Bilateral hip painTake 1 capsule (100 mg) by mouth 3 (three) times a day as needed (hip pain) 90 capsule 50506Active nebivolol (Bystolic) 5 MG tablet Indications:PalpitationsTake 1 tablet (5 mg) by mouth Daily 30 tablet 5Active rOPINIRole (Requip) 1 MG tablet Indications:Restless Leg SyndromeOne tablet at bedtime 90 tablet 5Active Ozempic, 0.25 or 0.5 MG/DOSE, 2 MG/3ML solution pen-injector INJECT 0.5 MG UNDER THE SKIN BTDEKF485Active lisinopril 20 MG tablet Take 20 mg by mouth in the morning.6Active sertraline (Zoloft) 25 MG tablet Take 25 mg by mouth in the morning.5Active Active Problems ProblemNoted DateDiagnosed DateMenopausal /15/2025Hot flashes 05/12/2024Pre-wtbyxfbu81/23/2024estless leg tnvhoanl63/18/2024dult BMI 45.0- 49.9 kg/sq m04Arthritis of left hand09/17/2022rthritis of right hand 09/17/2022hronic lwuiyqg8509/17/2022ependence on other enabling machine 09/17/2022ESS (euthyroid sick syndrome)09/17/2022Fatty liver disease, bodhpepuxoov64/23/6216Maxamslnc56/23/2023HTN (hypertension)09/17/2022Insomnia due to other mental /23/2023Mixed jzjaucedjbet44/23/2023Morbid obesity 09/17/2022Obstructive sleep apnea hypopnea, kedezkcc68/23/2023Osteoarthritis of joint of toe of right foot09/17/2022Other chronic pain09/17/2022Overactive xckdbdq6109/17/2022rimary osteoarthritis, right hand09/17/2022Recurrent major depressive disorder, in partial dlwjohnks24/23/2023Sleep /23/2023 Status post bilateral knee vitgjkjmoqcm49/23/7795Onszirwq22/23/2023Urinary hobmemfpsyvk89/23/2023 Resolved Problems ProblemNoted DateDiagnosed DateResolved DateGlucose intolerance (impaired glucose tolerance)/10/2024Gynecological ytmyyex03/ Pain in female genitalia on tnypkjdyvkn34/23/202310/iriformis syndrome of left side/ Encounters DateTypeDepartmentCare IufrWfmfyyrjzlh28/28/2025Orders Only [facility] [address] [facility] [address] [place] [address] Imelda Ramos MA 02/01/2025Telephone [facility] [address] [facility] [address] [place] [address] Fátima Burgos RN Bpwsmhp6601/27/2025Telephone [facility] [address] [place] [address] [place] [address] Nubia Martinez IA from Last 3 Months Immunizations ImmunizationAdministration DatesNext DueInfluenza Whole03/17/2013Influenza, High Dose Seasonal, Preservative Free02/01/2020Influenza, Injectable, MDCK, preservative free01/05/2024Influenza, injectable, MDCK, preservative free, taovspltyltc21/25/2023,01/15/2022,01/21/2019Influenza, injectable, MDCK, vxhrhiqsuldx34/27/2018Influenza, injectable, quadrivalent, preservative free 01/27/2021,02/02/2020,01/30/2019,01/21/2018,01/28/2017,03/17/2016,01/09/2015 Influenza, seasonal, injectable, preservative free01/18/2017,02/18/2015 SARS-COV-2 (COVID-19) vaccine, mRNA, spike protein, LNP, bivalent, preservative free, 30 mcg/0.3 mLdose, joyce-sucrose qvzsltqewcy11/20/2022Zoster, Recombinant 02/10/2021,12/02/2020 Family History * Patient is adopted Medical HistoryRelationNameCommentsCancerMotherMila Debra BeckmangsRelationNameStatus CommentsDaughterAliveFatherAliveMotherMila Debra BeckmangsDeceased Social History Tobacco UseTypesPacks/DayYears UsedDateSmoking Tobacco: NeverSmokeless Tobacco: Never Tobacco Cessation:Counseling Given: Yes Alcohol UseStandard Drinks/WeekCommentsNever0 (1 standard drink = 0.6 oz pure alcohol)Caffeine intake: 2-3 cups per [id number] Health LiteracyAnswerDate RecordedHow often do you need to have someone help you when you read instructions, pamphlets, or other written material from your doctor or pharmacy? Never12/15/2023Humiliation, Afraid, Rape, and Kick questionnaireAnswerDate RecordedWithin the last year, have you been afraid of your partner or ex-partner?No09/18/2022Within the last year, have you been humiliated or emotionally abused in other ways by your partner or ex-partner?No09/18/2022 Within the last year, have you been kicked, hit, slapped, or otherwise physically hurt by your partner or ex-partner?No09/18/2022Within the last year, have you been raped or forced to have any kind of sexual activity by your part ner or ex-partner?No09/18/2022Social Connection and Isolation PanelAnswerDate RecordedIn a typical week, how many times do you talk on the phone with family, friends, or neighbors?Once a week12/15/2023How often do you get together with friends or relatives?Once a week12/15/2023How often do you attend adventism or episcopalian services?More than 4 times per year12/15/2023o you belong to any clubs or organizations such as adventism groups, unions, fraternal or athletic desirae ups, or school groups?No12/15/2023How often do you attend meetings of the clubs or organizations you belong to?Never12/15/2023re you , , , , never , or living with a partner?Bazjmtx3212/15/2023 AUDIT-CAnswerDate RecordedQ1: How often do you have a drink containing alcohol? Never12/15/2023Q2: How many drinks containing alcohol do you have on a typical day when you are drinking?Patient does not drink12/15/2023Q3: How often do you have six or more drinks on one occasion?Never12/15/2023Overall Financial Resource Strain (CARDIA)AnswerDate RecordedHow hard is it for you to pay for the very basics like food, housing, medical care, and heating?Not hard at all 12/15/2023HQ-2AnswerDate RecordedPatient Health Questionnaire-2 Score0 08/02/2024[facility] Occupational Health - Occupational Stress QuestionnaireAnswerDate RecordedDo you feel stress - tense, restless, nervous, or anxious, or unable to sleep at night because yourmind is troubled all the time - these days?Very much12/15/2023Exercise Vital SignAnswerDate RecordedOn average, how many days per week do you engage in moderate to strenuous exercise (like a brisk walk)?0 days12/15/2023On average, how many minutes do you engage in exercise at this level?0 min12/15/2023Hunger Vital SignAnswerDate Recorded Within the past 12 months, you worried that your food would run out before you got the money to buymore.Never true12/15/2023Within the past 12 months, the food you bought just didn't last and you didn't have money to get more.Never true 12/15/2023RAPARE - TransportationAnswerDate RecordedIn the past 12 months, has lack of transportation kept you from medical appointments or from getting medications?No12/15/2023In the past 12 months, has lack of transportation kept you from meetings, work, or from getting things needed for daily living?No 12/15/2023Housing Stability Vital SignAnswerDate RecordedIn the last 12 months, was there a time when you were not able to pay the mortgage or rent on time?No 09/18/2022In the last 12 months, how many places have you lived?In the last 12 months, was there a time when you did not have a steady place to sleep or slept in ashelter (including now)?No09/18/2022Housing Stability Vital SignAnswerDate RecordedIn the last 12 months, was there a time when you were not able to pay the mortgage or rent on time?No12/15/2023In the past 12 months, how many times have you moved where you were living?t any time in the past 12 months, were you homeless or living in a jail (including now)?No 12/15/2023EducationAnswerDate RecordedWhat is the highest level of school you have completed or the highest degree you have received?Some college, no degree 11/13/2022CommentsNoSex and Gender InformationValueDate RecordedSex Assigned at BirthNot on fileLegal IsxAyvdsp46/15/2023 7:24 PM EDTGender Identity Not on fileSexual OrientationNot on fileOccupationIndustryJob Start DateJob End DateWorks, full timeNot on fileNot on fileNot on file Last Filed Vital Signs Vital SignReadingTime TakenCommentsBlood Zelslegn284/8004 3:24 PM EDT Qybsl209909/01/2024 1:28 PM VVNKsoodyszixx03.2 ??C (97.2 ??F)06/15/2024 6:15 PM ESTRespiratory Rate--Oxygen Dsngyjwwme92%09/01/2024 1:28 PM EDTInhaled Oxygen Concentration--Evzgge521 kg (275 lb)09/01/2024 1:28 PM OCZGmfxep080 cm (5' 3 ) 09/01/2024 1:28 PM EDTBody Mass Index48.71009/01/2024 1:28 PM EDT Plan of Treatment DateTypeDepartmentCare Team (Latest Contact Info)Xlacgwihqhe46/08/2025 3:00 PM ESTOffice Visit [facility] [address] [facility] [place] [phone] Janey Savage PA [address] [facility] [address] [place], [place] [phone] Health MaintenanceDue DateLast DoneCommentsCT Vnbizyshiknj62/30/1971Colonoscopy 1970FIT1970FOBT1970 0142Ouiypvfeinafc04/30/1971HPV/Yymsqn5003/18/2024 03/18/2019COVID-19 Vaccine ( season)/12/2023, 01/20/2023, 07/27/2021, Additional history existsInfluenza Vaccine (#1)509/12/2023, 01/20/2023, 01/15/2022, Additional history tglvdfUhbsabuym44/08/202511/11/2023, 11/05/2021, 07/12/2020, Additional history existsColorectal Cancer Screening 09/18/2026FIT-DNA/ervical Cancer Ltlhaenht67/02/2027Pap Smear, 3Pneumococcal Vaccine: Pediatrics (0 to 5 Years) and At-Risk Patients (6 to 64 Years)Aged OutNo longer eligible based on patient's age to complete this topic Procedures Procedure NamePriorityDate/TimeAssociated DiagnosisCommentsPAP SMEARRoutine 03/29/2024 12:00 AM ESTMM TOMOSYNTHESIS SCREENING BI03/05/2024 11:04 AM EST LAB COLOGUARD?? COLON CANCER OOBXECHronuci60/24/2024 12:30 PM EDT Screening for colon cancer THINPREP TIS PAP REFLEX HPV MRNA E6/E7 (97612)Bhezdme5903/18/2019 from Last 3 Months or Most Recently Relevant to Health Maintenance Results * Pap Smear (03/29/2024 12:00 AM EST)Specimen (Source)Anatomical Location / LateralityCollection Method / VolumeCollection TimeReceived TimeSwabCervical swab / Unknown Narrative Authorizing ProviderResult TypeResult StatusFazio Nurse [facility] ObLAB CYTOLOGY ORDERABLESFinal ResultPerforming OrganizationAddressCity/State/ZIP CodePhone Number EXTERNAL LAB * MM TOMOSYNTHESIS SCREENING BI (03/05/2024 11:04 AM EST)Anatomical Region LateralityModalityOtherSpecimen (Source)Anatomical Location / Laterality Collection Method / VolumeCollection TimeReceived Time03/05/2024 11:04 AM EST Narrative 03/05/2024 11:05 AM EST [facility] ?[address] ? [place] [address] ? Mammography Report ? Signed ? Patient: Naima Rios ? MR#: [id number] ?? : 1970 ?Acct:[id number] ?? Age/Sex: 53 / F ?ADM Date: 03/05/24 ?? Loc: MAMMO ? Attending Dr: ENRIQUE ALBA ? Ordering Physician: ENRIQUE ALBA ? Results: ? Date of Service: 03/05/24 ?Follow Up: ? Procedure(s): MM tomosynthesis screening BI ?? Accession Number(s): [id number] ? cc: ENRIQUE ALBA ? Patient Name: ? NAIMA RIOS ? MR#: [id number] ? : 1970 ? Exam Date: 03/05/2024 ?? Ordering Doctor: DR ENRIQUE ALBA . ? RADIOLOGY REPORT ? PROCEDURE: ? MM TOMOSYNTHESIS SCREENING BI ? COMPARISON: ? MG MAMM SCREEN 3D RONEN CAD, 11/05/2021. ??MAMMO RONEN SCREEN, ?? 07/12/2020. ??MG MAMM SCREEN RONEN W CAD, 05/14/2019. ??MG MAMM RONEN DIAG W CAD DIG, ?? 05/12/2013. ? INDICATIONS: ? Screening ? Calculator Name ? NCI Breast Cancer Risk Assessment Tool ?? 5 Year Breast Cancer Risk ? 1.80% ?? Lifetime Breast Cancer Risk ? 13.50% ?? Personal Breast Cancer ?No ?? Personal Ovarian Cancer ? No ?? Treatments ? None ?? Family Cancers ? None ? LOCATION: ? [facility] ? BREAST COMPOSITION: ? There are scattered areas of fibroglandular density. ? FINDINGS: ? DIAGNOSTIC CATEGORY 1--NEGATIVE. ? RIGHT BREAST: ??No significant suspicious finding. ??No significant change has ?? occurred. ? LEFT BREAST: ??No significant suspicious finding. ??No significant change has ?? occurred. ? RECOMMENDATIONS: ? ROUTINE MAMMOGRAM AND CLINICAL EVALUATION IN 12 MONTHS. ? PLEASE NOTE: ??A NORMAL MAMMOGRAM DOES NOT EXCLUDE THE POSSIBILITY OF BREAST ?? CANCER. ??A CLINICALLY SUSPICIOUS PALPABLE LUMP SHOULD BE BIOPSIED. ? Dictated by: Vikas Negron M.D. on 03/05/2024 at 11:03 ? Approved by: Vikas eNgron M.D. on 03/05/2024 at 11:04 ? Dictated By: ?Vikas Negron M.D. ? Signed By: ?03/05/24 1105 ? DD/ 1104 ? TD/TT: ? Bottom Finisher: Procedure Note Radiology, Radiologist, - 03/05/2024 [place] [address] Mammography Report Signed Patient: Naima Rios [facility]#: [id number] : 1970Acct:[id number] Age/Sex: 53 / FADM Date: 03/05/24 Loc: MAMMO Attending Dr: ENRIQUE ALBA Ordering Physician: ENRIQUE ALBAResults: Date of Service: 03/05/24Follow Up: Procedure(s): MM tomosynthesis screening BI Accession Number(s): [id number] cc: ENRIQUE ALBA Patient Name: NAIMA RIOS MR#: [id number] : 1970 Exam Date: 03/05/2024 Ordering Doctor: [...] None Family Cancers None LOCATION: [facility] BREAST COMPOSITION: There are scattered areas [...] M.D. Signed By:03/05/24 1105 DD/ 1104 TD/TT: Bottom Finisher: Authorizing ProviderResult TypeResult StatusEdellie Alba MDCLINISYNC IMAGING Final Result * Cologuard?? colon cancer screening (09/19/2023 12:30 PM EDT)ComponentValueRef RangeTest MethodAnalysis TimePerformed AtPathologist SignatureNONINV COLON CA DNA+OCC BLD SCRN STL-FFZIfnykzvcUfugujmh78/30/2024 9:11 AM EDTEXGraviton (CLIA #:[id number])Comment: NEGATIVE TEST RESULT. A negative Cologuard result indicates a low likelihood that a colorectal cancer (CRC) or advanced adenoma (adenomatous polyps with more advanced pre-malignant features) ??is present. The chance that a person with a negative Cologuard test has a colorectal cancer is less than 1in 1500 (negative predictive value >99.9%) or has an advanced adenoma is less than 5.3% (negative predictive value 94.7%). These data are based on a prospective cross-sectional study of 10,000individuals at average risk for colorectal cancer who were screened with both Cologuard and colonoscopy. (Jonel Welch et al, N Engl J Med 2014;370(14):4186-7736) The normal value (reference range) for this assay is negative. COLOGUARD RE-SCREENING RECOMMENDATION: Periodic colorectal cancer screening is an important part ofpreventive healthcare for asymptomatic individuals at average risk for colorectal cancer. ??Following a negative Cologuard result, the [place] Cancer Society and U.S. Multi-Society Task Force screening guidelines recommend a Cologuard re-screening interval of 3 years. References: [place] [employer] Society Guideline for Colorectal Cancer Screening: https://www.cancer.or g/cancer/rsmml-zijmkz-jgtojc/ijuvtkbst-fgqxcqire-qkcaphq/acs-recommendations.htm l.; Dave MENDOSA, [place] MARK, Hernesto FelizK, Colorectal Cancer Screening: Recommendations for Physicians and Patients from the U.S. Multi-Society Task Force on Colorectal Cancer Screening , Am J Gastroenterology 2017; 112:0975-0416. TEST DESCRIPTION: Composite algorithmic analysis of stool DNA-biomarkers with hemoglobin immunoassay. ?? Quantitative values of individual biomarkers are not reportable and are not associated with individual biomarker result reference ranges. Cologuard is intended for colorectal cancer screening ofadults of either sex, 45 years or older, [...] (Jonel Boyd al, N Engl J Med 2014;370(14):6179-2946.) Cologuard may produce a false negative or false positive result (no colorectal cancer or precancerous polyp present at colonoscopy follow up). A negative Cologuard test result does not guarantee the absence of CRC or advanced adenoma (pre-cancer). The current Cologuard screening interval is every 3 years. ([place] [employer] Society and U.S. Multi-Society Task Force). Cologuard performance data in a 10,000 patient pivotal study using colonoscopy as the reference method can be accessed at the following location: www.[employer]/results. Additional description of the Cologuard test process, warnings and precautions can be found at www.cologuard.com. Specimen (Source)Anatomical Location / LateralityCollection Method / Volume Collection TimeReceived TimeStool specimen (specimen)09/19/2023 12:30 PM EDT 09/20/2023 7:56 AM EDT Narrative Authorizing ProviderResult TypeResult StatusEnrique ENAMORADO [facility]NO[facility] ORDERABLESFinal ResultPerforming OrganizationAddressCity/State/ZIP CodePhone Number [facility] (CLIA #:[id number]) [place] [address], * THINPREP TIS PAP REFLEX HPV MRNA E6/E7 (49641) (03/18/2019)ComponentValueRef RangeTest MethodAnalysis TimePerformed AtPathologist SignatureCLINICAL INFORMATION:None givenNOMS LEGACY EXTERNAL LABLMP:MENONOMS [facility] EXTER[facility] LAB PREV. PAP:02/25/18[facility] EXTER[facility] LABPREV. BX:None givenNOMS LEGACY EXTERNAL LABSOURCE:Cervix, EndocervixNOMS LEGACY EXTERNAL LABSTATEMENT OF ADEQUACY:SEE COMMENTNOMS LEGACY EXTERNAL LABComment: Satisfactory for evaluation. Endocervical/transformation zone component present. INTERPRETATION/RESULT:Negative for intraepithelial lesion or malignancy.[facility] EXTER[facility] LABCOMMENT:This Pap test has been evaluated with computer assisted technology.[facility] LABCYTOTECHNOLOGIST:SEE COMMENTNOMS LEGACY EXTERNAL LABComment: DAO, CT(ASCP) CT screening location: [facility], [address] [place] [address], [place] [address]. COMMENTSEE COMMENTNOMS LEGACY EXTERNAL LABComment: EXPLANATORY NOTE: The Pap is a screening test for cervical cancer. It is not a diagnostic test and is subject to false negative and false positive results. It is most reliable when a satisfactory sample, regularly obtained, is submitted with relevant clinical findings and history, and when the Pap result is evaluated along with historic and current clinical information. Specimen (Source)Anatomical Location / LateralityCollection Method / Volume Collection TimeReceived Time03/18/2019 Narrative Authorizing ProviderResult TypeResult StatusKatalexandre BALLARD LABSFinal ResultPerforming OrganizationAddressCity/State/ZIP CodePhone Number [facility] from Last 3 Months or Most Recently Relevant to Health Maintenance Insurance Care Teams Team MemberRelationshipSpecialtyStart DateEnd Enrique Alba MD PCP - GeneralFamily Medicine09/16/22
--- OUTSIDE RECORDS SUMMARY | 2025-03-07 07:20 | XMS_ITS | Clinical Summary ---
Author Organization [employer] s [employer] Address [id number] [address] [place] [address] Care Team Providers Care Production Laborer Name Role Phone Enrique Burgos MD Primary Care Provider + [phone] Social History Tobacco UseTypesPacks/DayYears UsedDateSmoking Tobacco: Never AssessedChildcare AnswerDate JtqpyaogInuhdadmjTybalva52/25/2021EmploymentAnswerDate Recorded CvsgnocpzvBiixmyu32/25/2021Purpose - LifeAnswerDate RecordedPurpose and direction in tnauQmhnsrn80/25/2021CommentsNoSex and Gender Information ValueDate RecordedSex Assigned at BirthNot on fileLegal OnlNsvxgw64/04/2015 6:35 PM EDTGender IdentityNot on fileSexual OrientationNot on file Last Filed Vital Signs Vital SignReadingTime TakenCommentsBlood Pressure--Pulse--Temperature-- Respiratory Rate--Oxygen Saturation--Inhaled Oxygen Concentration--Pawacp553.2 kg (265 lb)07/12/2020 7:54 AM UJRJnidtu513 cm (5' 3 )07/12/2020 7:54 AM EDTBody Mass Index46.9407/12/2020 7:54 AM EDT Plan of Treatment Health MaintenanceDue DateLast DoneCommentsDepression Yelbtgfuf83/30/1983Tobacco Vcwfumyfn55/30/1983Adult BMI Kwmfbjqyk38/30/1989DTaP,Tdap and Td Vaccines (1 - Tdap)1989Pap Smear09/25/1991Zoster (Shingles) Vaccine (1 of 2)2020 Influenza Dydyous7312/27/2024 Medical Devices Not on file Insurance Care Teams Team MemberRelationshipSpecialtyStart DateEnd Enrique Burgos MD PCP - GeneralFamily Medicine07/12/20
--- OUTSIDE RECORDS SUMMARY | 2025-03-07 07:20 | XMS_ITS | Clinical Summary ---
Author Organization [facility] Address [address] [place] [address] Care Team Providers Care Senior Quality Assurance Analyst Name Role Phone Ronak Flores Primary Care Provider Taylor Mejia RD Unavailable Allergies No known active allergies Medications MedicationSigDispense QuantityRefillsLast FilledStart DateEnd DateStatus albuterol HFA (PROVENTIL HFA, VENTOLIN HFA) 90 mcg/actuation inhaler Inhale 2 Puffs as instructed every 6 hours as needed.09/26/2017Active Active Problems ProblemNoted DateDiagnosed DateS/P total knee /02/2013ilateral knee pain08/26/2012 Social History Tobacco UseTypesPacks/DayYears UsedDateSmoking Tobacco: NeverSmokeless Tobacco: Never Tobacco Cessation:Counseling Given: Not Answered Alcohol UseStandard Drinks/WeekCommentsNo0 (1 standard drink = 0.6 oz pure alcohol)PHQ-2AnswerDate RecordedPHQ-2 fzlua413rea Deprivation Index AnswerDate RecordedNational Score (1-100), lower number is lower risk87 10/30/2022State Score (1-10), lower number is lower fguw20610/30/2022ata from: https://www.neighborhoodatlas.medicine.[facility].edu/. Last address used for fa[address]10/30/2022CommentsNoSex and Gender InformationValueDate RecordedSex Assigned at BirthNot on fileLegal SexFemale 03/29/2012 8:03 AM ESTGender IdentityNot on fileSexual OrientationNot on file Last Filed Vital Signs Vital SignReadingTime TakenCommentsBlood Ghvkbxhv210/8104/09/2022 2:50 PM EDT Xzjph21932/06/2023 2:50 PM CWWKdeafmukcic90.4 ??C (97.5 ??F)04/01/2013 1:45 PM ESTRespiratory Jfin715406/02/2012 1:45 PM ESTOxygen Mmkakfmdfy74%04/01/2013 1:45 PM ESTInhaled Oxygen Concentration--Vfglmz632.9 kg (260 lb)12/05/2022 2:03 PM ESWZbdclh374 cm (5' 3 )12/05/2022 2:03 PM EDTBody Mass Index46.0612/05/2022 2:03 PM EDT Plan of Treatment Health MaintenanceDue DateLast DoneCommentsAnxiety Eezueziab96/30/1989Depression Jummpufmq84/30/1989HIV Bubobbpsb45/30/1989Hepatitis C Yunubofcz68/30/1989 DTaP,Tdap,Td Vaccine (1 - Tdap)1989Hepatitis B Vaccine (1 of 3 - 19+ 3- dose series)1989Cervical Cancer Yuchyxstm46/30/1992CT Colonography 09/25/2015Cologuard (FIT-DNA)09/25/20152703Aqfiutaxhub71/30/2016Colorectal Cancer Hbyqjbvvl08/30/2016Fecal Occult Blood09/25/2015Lipid Qyvbejwgu59/30/2016 Znemaczbfxtrv37/30/2016Diabetes Vierzpijy38, 03/30/2013, 03/19/2013, Additional history existsPneumococcal Vaccine: 50+ (1 of 1 - PCV) 2020Mammogram Njcogslxp24/ovid-19 Vaccine ( - 2024- season)509/, 07/27/2021, 03/08/2021, Additional history exists Influenza Vaccine (#1)509/, 01/27/2021, 02/02/2020, Additional history existsShingrix NtcomizYgaenesvg60/16/2021, 12/02/2020 Medical Devices ImplantedTypeAreaManufacturerDevice [facility] Expiration DateModel / Serial / LotSimplex P Bone Cement Radiopaque Full Dose Individual Pack - [id number] Implanted:Qty: 1 on 10/27/2012 at [facility] 02/25/[id number] / / [id number] P Bone Cement Radiopaque Full Dose Individual Pack - [id number] Implanted:Qty: 1 on 10/27/2012 at [facility] 01/25/[id number] / / [id number] P Bone Cement Radiopaque Full Dose Individual Pack - [id number] Implanted:Qty: 2 on 03/30/2013 at [facility] /[id number] / / [id number] Tib 4 13mm Kn X3 Cr Trthln - [id number] Implanted:Qty: 1 on 10/27/2012 at [facility] WYKLYDBANSZ46/31/[id number] / / [id number] Fem 4 Lt Kn Cr Ivan Trthln - [id number] Implanted:Qty: 1 on 10/27/2012 at [facility] NDJTZUHUVTK32/23/[id number] / / [id number] Fem 4 Rt Kn Cr Ivan Trthln - [id number] Implanted:Qty: 1 on 03/30/2013 at [facility] XCLKHPOVAUY58/09/[id number] / / [id number] Tib 3 9mm Kn X3 Cr Trthln - [id number] Implanted:Qty: 1 on 03/30/2013 at [facility] WWAYGSCTOFA77/29/[id number] / / MMPJMWComp Pat 10mm 32mm Asym Trthln - [id number] Implanted:Qty: 1 on 10/27/2012 at [facility] RQCFZTGGDMZ31/07/[id number] / / [id number] Pat 10mm 32mm Asym Trthln - [id number] Implanted:Qty: 1 [facility] 03/30/2013 [facility] VQXLAAUIAKV17/04/[id number] / / [id number] Tib Trthln 4 Prim - [id number] Implanted:Qty: 1 on 10/27/2012 at [facility] 08/03/[id number] / / HMKGABaseplt Tib Trthln 3 Prim - [id number] Implanted:Qty: 1 on 03/30/2013 at [facility] 03/10/[id number] / / [id number] Procedures Procedure NamePriorityDate/TimeAssociated DiagnosisCommentsBASIC METABOLIC PANEL Gaqjvox7703/31/2013 10:32 PM EST from Last 3 Months or Most Recently Relevant to Health Maintenance Results * (ABNORMAL) BASIC METABOLIC PNL (03/31/2013 10:32 PM EST)ComponentValueRef RangeTest MethodAnalysis TimePerformed AtPathologist PlmzpohhcWoqvyqj544(H)65 - 100 mg/dLLAKEHE[facility] LYTUXFATGJNEQ620 - 25 mg/dLLAKEHEALTH [facility]INT [facility] LABORATORYCreatinine0.720.70 - 1.40 mg/dLLAKEHEALTH [facility]IP[facility]INT [facility] LABORATORY Nulrte132307 - 148 mmol/LCTRIN[facility] LABORATORYPotassium4.33.5 - 5.0 mmol/LCTRINITY [facility] XQGOANKXUVXfhquyuh16781 - 110 mmol/LCTRINITY [facility] GDJOXKISUKYX935(L)23 - 32 mmol/LCTRIN[facility]ORY Anion Hun020 - 15 mmol/LCTRINITY [facility] LABORATORYCalcium8.68.5 - 10.5 mg/dLLAKEHEALTH [facility] LABORATORYSpecimen (Source)Anatomical Location / LateralityCollection Method / VolumeCollection TimeReceived TimeBlood specimen (specimen)BLOOD SPECIMEN / Vkjgxwn7003/31/2013 10:32 PM EST03/31/2013 10:33 PM EST Narrative Authorizing ProviderResult TypeResult StatusCarlton Denny MDLABORATORYFinal ResultPerforming OrganizationAddressCity/State/ZIP CodePhone Number [facility] [address] [place] [address] from Last 3 Months or Most Recently Relevant to Health Maintenance Insurance Care Teams Team MemberRelationshipSpecialtyStart DateEnd Date Ronak Flores PCP - GeneralInternal Medicine08/26/12 Taylor Gee, [place] [id number] [facility] [place], [place] [id number] Registered DietitianNutrition12/05/22
--- OUTSIDE RECORDS SUMMARY | 2025-03-07 07:20 | XMS_ITS | Encounter Summary ---
Author Organization [facility] Address [address] [place] [address] Care Team Providers Care Quilting Machine Operator Name Role Phone Enrique Alba MD Primary Care Provider [phone] Encounter Details DateTypeDepartmentCare Team (Latest Contact Info)Yortxdjzyvy98/08/2024Clinisync Result Encounter [facility] External Department Unsolicited Enrique Alba MD [address] [place] [address] Social History Tobacco UseTypesPacks/DayYears UsedDateSmoking Tobacco: NeverSmokeless Tobacco: NeverAlcohol UseStandard Drinks/WeekCommentsNever0 (1 standard drink = 0.6 oz pure alcohol)Caffeine intake: 2-3 cups per ukqV9703 Health LiteracyAnswerDate RecordedHow often do you need [...] sexual activity by your part ner or ex-partner?09/18/2022Social Connection and Isolation PanelAnswerDate RecordedIn a typical week, how many times do you talk on the phone with family, friends, or neighbors?Once a week12/15/2023How often do you get together with friends or relatives?Once a week12/15/2023How often do you attend mandaeism or tenriism services?More than 4 times per year12/15/2023o you belong to any clubs or organizations such as mandaeism groups, unions, fraCloudary or athletic desirae ups, or school groups?No12/15/2023How often do you attend meetings of the clubs or organizations you belong to?Never12/15/2023re you , , , , never , or living with a partner?Ybneoxe0712/15/2023 AUDIT-CAnswerDate RecordedQ1: How often do you have [...] at all 12/15/2023HQ-2AnswerDate RecordedPatient Health Questionnaire-2 Score0 08/02/2024[facility] [place] of Occupational Health - Occupational Stress QuestionnaireAnswerDate [...] steady place to sleep or slept in [facility] (including now)?No09/18/2022Housing Stability Vital SignAnswerDate RecordedIn the last 12 months, was there a time when you were not able to pay the mortgage or rent on time?No12/15/2023In the past 12 months, how many times have you moved where you were living?t any time in the past 12 months, were you homeless or living in a snf (including now)?No 12/15/2023EducationAnswerDate RecordedWhat is the highest level of school you have completed or the highest degree you have received?Some college, no degree 11/13/2022CommentsNoSex and Gender InformationValueDate RecordedSex Assigned at BirthNot on fileLegal KpjMxfxse45/15/2023 7:24 PM EDTGender Identity Not on fileSexual OrientationNot on fileOccupationIndustryJob Start DateJob End DateWorks, full timeNot on fileNot on fileNot on filedocumented as of this encounter Functional Status * Over the past 2 weeks, how often have you been bothered by any of the following problems?QuestionAnswerDate of AssessmentAuthorLittle interest or pleasure in doing thingsNot at all08/02/2024 3:27 PM Imelda Ann MA Feeling down, depressed, or hopelessNot at all08/02/2024 3:27 PM Imelda Ann MAPatient Health Questionnaire-2 Oqbki215 3:27 PM Imelda Ann MA documented as of this encounter Plan of Treatment DateTypeDepartmentCare Team (Latest Contact Info)Fpxxspqhiqd69/08/2025 3:00 PM ESTOffice Visit [facility] [place] OBRYAN [address] [address] Janey Savage PA [address] [place] [address] documented as of this encounter Procedures Procedure NamePriorityDate/TimeAssociated DiagnosisCommentsMM TOMOSYNTHESIS SCREENING BI03/05/2024 11:04 AM EST documented in this encounter Results * MM TOMOSYNTHESIS SCREENING BI (03/05/2024 11:04 AM EST)Anatomical Region LateralityModalityOtherSpecimen (Source)Anatomical Location / Laterality Collection Method / VolumeCollection TimeReceived Time03/05/2024 11:04 AM EST Narrative 03/05/2024 11:05 AM EST [facility] ?[address] ? [place] [address] ? Mammography Report ? Signed ? Patient: Hernandez,Naima M ? MR#: [id number] ?? : 1970 ?Acct:[id number] ?? Age/Sex: 53 / F ?ADM Date: 03/05/24 ?? Loc: MAMMO ? Attending Dr: ENRIQUE ALBA ? Ordering Physician: ANJALI,EDWARD ? Results: ? Date of Service: 03/05/24 ?Follow Up: ? Procedure(s): MM tomosynthesis screening BI ?? Accession Number(s): [id number] ? cc: ANJALI,ENRIQUE ? Patient Name: ? NAIMA HERNANDEZ ? MR#: [id number] ? : 1970 ? Exam Date: 03/05/2024 [...] Cancers ? None ? LOCATION: ? [facility] ? BREAST COMPOSITION: ? There are scattered [...] 03/05/2024 at 11:03 ? Approved by: Vikas Negron M.D. on 03/05/2024 at 11:04 ? Dictated By: ?Vikas Negron M.D. ? Signed By: ?24 1105 ? DD/ 1104 ? TD/TT: ? Drafter Civil (Cad): Procedure Note Radiology, Radiologist, MD - 03/05/2024 [facility] [place] [id number] Mammography Report Signed Patient: Naima Hernandez MMR#: [id number] : 1970Acct:[id number] Age/Sex: 53 / FADM Date: 03/05/24 Loc: MAMMO Attending Dr: ENRIQUE ALBA Ordering Physician: ENRIQUE ALBAResults: Date of Service: 03/05/24Follow Up: Procedure(s): MM tomosynthesis screening BI Accession Number(s): [id number] cc: ENRIQUE ALBA Patient Name: NAIMA HERNANDEZ MR#: [id number] : 1970 Exam Date: 03/05/2024 Ordering Doctor: [...] Family Cancers None LOCATION: [facility] BREAST COMPOSITION: There are scattered areas of [...] M.D. Signed By:03/05/24 1105 DD/ 1104 TD/TT: Drafter Civil (Cad): Authorizing ProviderResult TypeResult StatusEdellie Alba MDCLINISYNC IMAGING Final Result documented in this encounter Visit Diagnoses Not on filedocumented in this encounter Care Teams Team MemberRelationshipSpecialtyStart DateEnd Date Enrique Alba MD PCP - GeneralFamily Medicine09/16/22documented as of this encounter
--- OUTSIDE RECORDS SUMMARY | 2025-03-07 07:20 | XMS_ITS | Encounter Summary ---
Author Organization [facility] Address [address] [place] [address] Care Team Providers Care Medical Review Coordinator Name Role Phone Enrique Burgos MD Primary Care Provider [phone] Encounter Details DateTypeDepartmentCare Team (Latest Contact Info)Jbpribyvucf18/28/2025Orders Only [facility] [address] [address] Rachel, July, SENDY Social History Tobacco UseTypesPacks/DayYears UsedDateSmoking Tobacco: NeverSmokeless Tobacco: NeverAlcohol UseStandard Drinks/WeekCommentsNever0 (1 standard drink = 0.6 oz pure alcohol)Caffeine intake: 2-3 cups per ppaT6757 Health LiteracyAnswerDate RecordedHow often do you need [...] otherwise physically hurt by your partner or ex-partner?No3Within the last year, have you been raped or forced to have any kind of sexual activity by your part ner or ex-partner?09/18/2022Social Connection and Isolation PanelAnswerDate RecordedIn a typical week, how many times do you talk on the phone with family, friends, or neighbors?Once a week12/15/2023How often do you get together with friends or relatives?Once a week12/15/2023How often do you attend confucianist or anglican services?More than 4 times per year12/15/2023o you belong to any clubs or organizations such as confucianist groups, unions, fraScutum or athletic desirae ups, or school groups?No12/15/2023How often do you attend meetings of the clubs or organizations you belong to?Never12/15/2023re you , , , , never , or living with a partner?Ualonmj6312/15/2023 AUDIT-CAnswerDate RecordedQ1: How often do you have [...] at all 12/15/2023HQ-2AnswerDate RecordedPatient Health Questionnaire-2 Score0 08/02/2024[facility] [place] of Occupational Health - Occupational Stress QuestionnaireAnswerDate [...] steady place to sleep or slept in [facility] (including now)?No09/18/2022Housing Stability Vital SignAnswerDate RecordedIn the last 12 months, was there a time when you were not able to pay the mortgage or rent on time?No12/15/2023In the past 12 months, how many times have you moved where you were living?t any time in the past 12 months, were you homeless or living in a fci (including now)?No 12/15/2023EducationAnswerDate RecordedWhat is the highest level of school you have completed or the highest degree you have received?Some college, no degree 11/13/2022CommentsNoSex and Gender InformationValueDate RecordedSex Assigned at BirthNot on fileLegal EagEvbpfe65/15/2023 7:24 PM EDTGender Identity Not on fileSexual OrientationNot on fileOccupationIndustryJob Start DateJob End DateWorks, full timeNot on fileNot on fileNot on filedocumented as of this encounter Plan of Treatment DateTypeDepartmentCare Team (Latest Contact Info)Ixxcipweqom40/08/2025 3:00 PM ESTOffice Visit [facility] [place] BHAKTA [address] [place] [address] [place] [address] Janey Savage PA [address] [place] [address] documented as of this encounter Visit Diagnoses Not on filedocumented in this encounter Care Teams Team MemberRelationshipSpecialtyStart DateEnd Date Enrique Burgos MD PCP - GeneralFamily Medicine09/16/22documented as of this encounter
--- OUTSIDE RECORDS SUMMARY | 2025-03-07 07:20 | XMS_ITS | Encounter Summary ---
Author Organization [facility] Address [address] [place] [address] Care Team Providers Care Table Saw Operator Name Role Phone Enrique Alba MD Primary Care Provider [phone] Encounter Details DateTypeDepartmentCare Team (Latest Contact Info)Oxxxmejdlzc03/08/2024Clinisync Result Encounter [facility] External Department Unsolicited Enrique Alba MD [address] [place] [address] Social History Tobacco UseTypesPacks/DayYears UsedDateSmoking Tobacco: NeverSmokeless Tobacco: NeverAlcohol UseStandard Drinks/WeekCommentsNever0 (1 standard drink = 0.6 oz pure alcohol)Caffeine intake: 2-3 cups per ywjY0364 Health LiteracyAnswerDate RecordedHow often do you need [...] relatives?Once a week12/15/2023How often do you attend yazdanism or uatsdin services?More than 4 times per year12/15/2023o you belong to any clubs or organizations such as yazdanism groups, unions, fraPriceAdvice or athletic desirae ups, or school groups?No12/15/2023How often do you attend meetings of the clubs or organizations you belong to?Never12/15/2023re you , , , , never , or living with a partner?Gwzfxbt7412/15/2023 AUDIT-CAnswerDate RecordedQ1: How often do you have [...] at all 12/15/2023HQ-2AnswerDate RecordedPatient Health Questionnaire-2 Score0 08/02/2024[facility] [place] of Occupational Health - Occupational Stress QuestionnaireAnswerDate [...] steady place to sleep or slept in [facility] (including now)?No09/18/2022Housing Stability Vital SignAnswerDate RecordedIn the last 12 months, was there a time when you were not able to pay the mortgage or rent on time?No12/15/2023In the past 12 months, how many times have you moved where you were living?t any time in the past 12 months, were you homeless or living in a penitentiary (including now)?No 12/15/2023EducationAnswerDate RecordedWhat is the highest level of school you have completed or the highest degree you have received?Some college, no degree 11/13/2022CommentsNoSex and Gender InformationValueDate RecordedSex Assigned at BirthNot on fileLegal FymBgmpxw62/15/2023 7:24 PM EDTGender Identity Not on fileSexual [...] 3:27 PM Imelda Ann MAPatient Health Questionnaire-2 Whwen761 3:27 PM Imelda Ann MA documented as of this encounter Plan of Treatment DateTypeDepartmentCare Team (Latest Contact Info)Odjayhytmaj07/08/2025 3:00 PM ESTOffice Visit [facility] [place] OBGYKatrin [address] [address] Janey Savage PA [address] [place] [address] documented as of this encounter Procedures Procedure NamePriorityDate/TimeAssociated DiagnosisCommentsXR DEXA AXIAL FTURCJHM24/08/2024 7:37 AM EST documented in this encounter Results * XR DEXA AXIAL SKELETON (03/05/2024 7:37 AM EST)Anatomical RegionLaterality ModalityOtherSpecimen (Source)Anatomical Location / LateralityCollection Method / VolumeCollection TimeReceived Time03/05/2024 7:37 AM EST Narrative 03/05/2024 7:39 AM EST [facility] ?[address] ? [place] [address] ?XRay Report ? Signed ? Patient: Naima Hernandez ? MR#: [id number] ?? : 1970 ?Acct:[id number] ?? Age/Sex: 53 / F ?ADM Date: 03/05/24 ?? Loc: MAMMO ? Attending Dr: ENRIQUE ALBA ? Ordering Physician: ENRIQUE ALBA ?? Date of Service: 03/05/24 ?? Procedure(s): XR DEXA axial skeleton ?? Accession Number(s): [id number] ? cc: ENRIQUE ALBA ? [facility] ? [address] ? [place] [address] ? Patient Name: ?? NAIMA HERNANDEZ ? MRN: [facility]:[id number] ? date: 1970 ?Sex: F ?? Assigned Patient Location: MAMMO ?? Current Patient Location: MAMMO ?? Accession/Order Number: [id number] ?? Exam Date: 03/05/2024 ??07:00 ?Report Date: 03/05/2024 ??07:37 ? At the request of: ?? ENRIQUE ??DOMINGUEZYER ? Procedure: ??XR DEXA axial skeleton ? EXAMINATION: XR DEXA axial skeleton ? HISTORY: Menopausal, Osteoporosis Screening ? COMPARISON: No relevant comparison available. ? TECHNIQUE: Dual-energy X-ray absorptiometry (DXA) was performed. ? FINDINGS: ?? SPINE ANALYSIS: ?? Average bone mineral density is 1.257 g/cm2. ?? T-score (standard deviation relative to young adult mean): 0.6 . ? HIP ANALYSIS: ?? Lowest bone mineral density is within the right femoral neck, 0.853 g/cm2. ?? T-score (standard deviation relative to young adult mean): -1.3 . ? XR/XR DEXA axial skeleton ?? IMPRESSION: ? World Health Organization Classification: Osteopenia - Moderate Fracture Risk ?? FRAX: Cannot be calculated. ? Pharmacologic treatment recommendations ?? * No uniform recommendation applies to all patients. Management plans must be ?? individualized. ?? * Consider initiating pharmacologic treatment in postmenopausal women and men ?? >= 50 years of age who have the following: Primary fracture prevention: ?? * T-score <= - 2.5 at the femoral neck, total hip, lumbar spine, 33% radius (some uncertainty with existing data) by DXA. ?? * Low bone mass (osteopenia: T-score between - 1.0 and - 2.5) at the femoral ?? neck or total hip by DXA with a 10-year hip fracture risk >= 3% or a 10-year major osteoporosis-related fracture risk >= 20% (i.e., clinical vertebral, hip, ?? forearm, or proximal humerus) based on the US-adapted FRAXregistered model. ?? Secondary fracture prevention: ?? * Fracture of the hip or vertebra regardless of BMD [4, 5]. ?? * Fracture of proximal humerus, pelvis, or distal forearm in persons with low ?? bone mass (osteopenia: T-score between - 1.0 and - 2.5). The decision to treat ? should be individualized in persons with a fracture of the proximal humerus, ?? pelvis, or distal forearm who do not have osteopenia or low BMD [12, 13]. ?? Marian MS, Grecia SL, Praveen KL, Jill EM, Nghia KG, AJ, Libra ?? ES. ?? The clinician's guide to prevention and treatment of osteoporosis. Osteoporos ?? Int. 2021;33(10):0535-2514. doi: 10.1007/e46050-517-15664-q. Ep2021 ? 28. Erratum in: Osteoporos Int. 2021Nov 22;: PMID: 10316944; PMCID: ?? [id number]. ? Electronically authenticated by: VIKAS ??TEREZA ?? Date: 03/05/2024 ??07:37 ? Dictated By: ?Vikas Negron M.D. ? Signed By: ?03/05/2439 ? DD/ 0737 ? TD/TT: ? Parker: Procedure Note Radiology, Radiologist, - 03/05/2024 [facility] [place] [id number] XRay Report Signed Patient: Naima Hernandez MMR#: [id number] : 1970Acct:[id number] Age/Sex: 53 / FADM Date: 03/05/24 Loc: MAMMO Attending Dr: ENRIQUE ALBA Ordering Physician: ENRIQUE ALBA Date of Service: 03/05/24 Procedure(s): XR DEXA axial skeleton Accession Number(s): [id number] cc: ENRIQUE ALBA [facility] [place] [id number] Patient Name: NAIMA HERNANDEZ MRN: [facility]:[id number] date: 1970 Sex: F Assigned Patient Location: MAMMO Current Patient Location: MAMMO Accession/Order Number: [id number] Exam Date: 03/05/2024 07:00 Report Date: 03/05/2024 [...] 10-year hip fracture risk >= 3% or c65-ajja major osteoporosis-related fracture risk >= 20% (i.e., [...] to prevention and treatment of osteoporosis.Osteoporos Int. 2021;33(10):5877-5898. doi: 10.1007/m97284-159-44124-b. Epub . Erratum in: Osteoporos Int. 2021Nov 22;: PMID: 71074021; PMCID: [id number]. Electronically authenticated by: VIKAS NEGRON Date: 03/05/2024 07:37 Dictated By: Vikas Negron M.D. Signed By:03/05/24738 DD/ 6 TD/TT: Parker: Authorizing ProviderResult TypeResult Ayala Alba MDCLINISYNC IMAGING Final Result documented in this encounter Visit Diagnoses Not on filedocumented in this encounter Care Teams Team MemberRelationshipSpecialtyStart DateEnd Date Enrique Alba MD PCP - GeneralFamily Medicine09/16/22documented as of this encounter
--- OUTSIDE RECORDS SUMMARY | 2025-03-07 07:20 | XMS_ITS | Clinical Summary ---
Author Organization [facility] Address [address] [facility] [address] [place] [address] Care Team Providers Care Central Supply Tech Name Role Phone Unavailable Primary Care Provider Unavailabl e Source Comments The following information is NOT included in Care Everywhere downloads:Psychiatric notes, ECG results, Cardiac Rehab notes, Pulmonary Function notes, data from [employer] (includes but not limited toPregnancy data,audiograms, eye exams, pre-surgical evaluation notes, well-child exam data).[facility] Allergies No known active allergies Active Problems ProblemNoted DateDiagnosed DatePrimary localized osteoarthrosis, lower leg 02/06/2005Tear of medial cartilage or meniscus of knee, mqxhucv9102/06/2005 Social History Tobacco UseTypesPacks/DayYears UsedDateSmoking Tobacco: Never Assessed CommentsNoSex and Gender InformationValueDate RecordedSex Assigned at BirthNot on fileLegal AatHwykag41/04/2012 12:09 PM ESTGender IdentityNot on fileSexual OrientationNot on file Plan of Treatment Health MaintenanceDue DateLast HcbkLqktatstOaxjpksrqyx35/30/1971HIV Test 1985Hepatitis C Ehrdvzrw37/30/1989Tdap Czilfiz4309/24/1988Hepatitis A (HAV) Vaccine (optional start 19+ years)1989Hepatitis B (HBV) Vaccine (1 of 3 - 19+ 3-dose series)1989Tetanus (Td or Tdap) Umdixns1609/24/1989Pap Smear 09/25/19912811Uprbisnpzlj01/30/2011CRC Xjyjhnada59/30/2149Ywuekorshjp25/30/2016 Cologuard (Stool DNA)09/25/2015FIT09/25/2015Pneumococcal Vaccine(s) (50+ yrs) (1 of 1 - PCV)1Shingles (RZV) Vaccine (1 of 2)1COVID-19 Vaccine (1 - 2024- season)2024Influenza Vaccine (#1)2024 Insurance [facility] Address: [address] [place] [address]
--- OUTSIDE RECORDS SUMMARY | 2025-03-07 07:21 | XMS_ITS | CCD ---
Author Organization [facility] Care Team Providers Care Radiologist Name Role Phone ANJALI, DR BLAKELY Admitting [...] HEMEYER, DR BLAKELY Consulting Unavailable MONTRELL WU Unavailable HEMEYER, DR BLAKELY Primary Care Unavailable KARASIK, DR MOORE Attending Unavailable KARASIK, DR MOORE Admitting Unavailable KARASIK, DR MOORE Consulting Unavailable KARASIK, DR MOORE Admitting Unavailable HEMEYER, DR BLAKELY Primary Care Unavailable KARASIK, DR MOORE Attending Unavailable KARASIK, DR MOORE Consulting Unavailable WEST, DR MONTRELL Auguste Consulting Unavailable Ernie Fuller Unavailable [phone] Enrique Alba Primary Care Unavailable Ernie Fuller Attending UnavailErnie Moreno Admitting UnavailBen Sandhu Unavailable Zeferino Flores Primary Care Provider UnavailTaylor Puckett RD Unavailable [phone] RADHA ABDUL Referring UnavailTAYLOR Puckett Attending Unavailable ZEFERINO FLORES E Primary Care Unavailable RADHA ABDUL Attending UnavailMIKE Mayo Referring Unavailable JUNIE FLOREST E Primary Care Unavailable MARIAJOSE STALLWORTH Attending Unavailable ZEFERINO FLORES Primary Care Unavailable Enrique Alba MD Primary Care Provider [phone] Enrique Alba MD Primary Care Provider LUIS EDUARDO LEVINE Attending Unavailable LUIS EDUARDO LEVINE Referring Unavailable ENRIQUE ALBA Attending Unavailable ENRIQUE ALBA Attending Unavailable ENRIQUE ALBA Attending Unavailable ENRIQUE ALBA Attending Unavailable ENRIQUE ALBA Attending Unavailable JANEY SAVAGE Attending Unavailable ENRIQUE ALBA Attending Unavailable BEATRIZ CHAVIS Attending Unavailable BEATRIZ CHAVIS Referring Unavailable Maribeth Galvez APRN Primary Care Provider Maribeth Galvez APRN Attending Provider SOURAV SALDANA Attending Unavailable Maribeth Galvez APRN Primary Care Provider Maribeth Galvez APRN Attending Provider [phone] Allergies Allergy ClassificationReported Allergen(s)Allergy TypeDate of OnsetReaction(s) Facility (20 sources)DULoxetine; 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: [DULOXETINE HCL]Drug Tdltkvu86-07-9420CY[facility] (20 sources)metFORMIN; 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: [METFORMIN]Drug Vzfyklv19-57-9288IMNemours Foundation Work Phone: Medications Current Medications MedicationDrug Class(es)DatesSig (Normalized)Sig (Original)[id number] 200 actuat albuterol 0.09 mg/actuat metered dose inhaler (20 sources)beta2-Adrenergic AgonistStart: 62-20-1811efgs 2 puff(s) by inhalation every six hours for wheezingalbuterol HFA (ProAir HFA) 90 mcg/act inhaler Indications: Bronchitis Inhale 2 puffs every 6 (six) hours if needed for wheezing 18 g 3 05/14/2023 ActiveStart: 93-58-9101krir 2 puff(s) by inhalation every six hours as neededalbuterol HFA (PROVENTIL HFA, VENTOLIN HFA) 90 mcg/actuation inhaler Inhale 2 Puffs as instructed every 6 hours as needed. 0 09/26/2017 ActiveComment on above:Inhale 2 Puffs as instructed every 6 hours as needed.Blood-Glucose Sensor (Dexcom G6 Sensor) device (1 source)Start: 60-87-9455Cerjk-Glucose Sensor (Dexcom G6 Sensor) device Active 0 .Route 3 March 02, 2025 12:00am To check blood sugar dailyBlood- Glucose,Hotel Or Motel Manager,Cont (Dexcom G7 Hotel Or Motel Manager) misc (1 source)Start: 35-24-2430Csbyh-Glucose,Hotel Or Motel Manager,Cont (Dexcom G7 Hotel Or Motel Manager) misc Active 0 .Route 1 March 02, 2025 12:00am Check blood sugar dailybusPIRone hydrochloride 5 mg oral tablet (1 source)Start: 84-90-7497attg 1 tablet by mouth twice dailyBuspirone 5 mg tablet Active 5 MG PO Twice daily 60 30 March 02, 2025 12:00am Anxiety Anxietydisorder, unspecified Complies with drug therapycitalopram 10 mg oral tablet (3 sources)Serotonin Reuptake InhibitorStart: 68-76-6212sjim 1 tablet by mouth once dailycitalopram (CeleXA) 10 MG tablet Indications: Hot flashes , Menopausal symptoms Take 1 tablet (10 mg) by mouth Daily 30 tablet 3 05/12/2024 Active diclofenac sodium 0.03 mg/mg topical gel (20 sources)Nonsteroidal Anti-inflammatory DrugStart: 13-89-1473pzbqdpilhg sodium 3 % gel Apply 1 application topically every 6 (six) hours. 07/23/2021 Activefenofibrate 160 mg oral tablet (20 sources)Peroxisome Proliferator Receptor alpha AgonistStart: 03-15-2024 End: 36-19-8622wcjr 1 tablet by mouth once dailyfenofibrate (Triglide) 160 MG tablet Indications: Mixed dyslipidemia Take 1 tablet (160 mg) by mouth Daily 90 tablet 1 08/02/2024 01/29/2025 ActiveStart: 03-11-2024 End: 93-72-2521igff 1 capsule by mouth once dailyFenofibrate 150 MG capsule Indications: Mixed dyslipidemia (CMS/HCC) Take 150 mg by mouth Daily 30 capsule 03/11/2024 03/15/2024 Discontinued (Formulary change)Start: 01-29-2023 End: 09-36-9214jqgp 1 tablet by mouth in the morningfenofibrate (Tricor) 145 MG tablet Indications: Mixed hyperlipidemia (CMS/HCC) Take 1 tablet (145 mg) by mouth in the morning. 90 tablet 1 01/29/2023 02/25/2024 Discontinued (Therapy completed)Fezolinetant (Veozah) 45 MG tablet (5 sources)Start: 07-21-2024 End: 94-05-5951lwzy 1 tablet by mouth once dailyFezolinetant (Veozah) 45 MG tablet Indications: Hot flashes , Menopausal symptoms Take 45 mg by mouth Daily 30 tablet 1 07/21/2024 09/01/2024 ActiveStart: 07-21-2024 End: 99-63-6731djsl 1 tablet by mouth once dailyFezolinetant (Veozah) 45 MG tablet Indications: Hot flashes , Menopausal symptoms Take 45 mg by mouth Daily 30 tablet 1 07/21/2024 08/20/2024 Activegabapentin 100 mg oral capsule (20 sources)Anti-epileptic AgentStart: 11-09-2024 End: 11-85-4035sgso 1 capsule by mouth three times daily as neededGabapentin 100 mg capsule Active 100 MG PO Three times daily as needed February 01, 2025 11:00pm Complies with drug therapyStart: 08-02-2024 End: 17-84-7309jble 1 capsule by mouth at bedtimegabapentin (Neurontin) 300 MG capsule Indications: Restless leg syndrome Take 1 capsule (300 mg) bymouth at bedtime 90 capsule 1 08/02/2024 01/29/2025 ActiveStart: 08-19-2023 End: 54-42-6007mtbk 1 capsule by mouth at bedtimegabapentin (Neurontin) 300 MG capsule Indications: Acute left-sided back pain with sciatica Take 1 capsule (300 mg) by mouth at bedtime 90 capsule 1 08/19/2023 02/25/2024 Discontinued Start: 07-23-2023 End: 73-30-0362zhguwwrjzx (Neurontin) 100 MG capsule Indications: Acute left- sided back pain with sciatica 2 capsules three times daily as needed for pain 180 capsule 1 07/23/2023 02/25/2024 DiscontinuedlevoFLOXacin 750 mg oral tablet (2 sources)Quinolone AntimicrobialStart: 04-05-2024 End: 91-57-3957ucsq 1 tablet by mouth once dailylevoFLOXacin (Levaquin) 750 MG tablet Indications: Acute non-recurrent pansinusitis Take 1 tablet (750 mg) by mouth Daily for 7 days 7 tablet 04/05/2024 04/12/2024 Activelisinopril 20 mg oral tablet (1 source)Angiotensin Converting Enzyme InhibitorStart: 35-35-6272jhqn 1 tablet by mouth once dailyLisinopril 20 mg tablet Active 20 MG PO Daily February 20, 2025 11:00pm Complies with drug therapymagnesium oxide 400 mg oral tablet (6 sources)Start: 04-16-2024 End: 23-02-8069clfg 1 tablet by mouth once dailymagnesium oxide (Mag-Ox) 400 MG tablet Indications: Hot flashes Take 1 tablet (400 mg) by mouth Daily 30 tablet 2 04/16/2024 07/15/2024 Activemelatonin 10 mg oral tablet (20 sources)take 1 tablet by mouth at bedtimemelatonin 10 MG tablet Take 1 tablet by mouth at bedtime. Jihqdq31 hr metFORMIN hydrochloride 750 mg extended release oral tablet (20 sources)BiguanideStart: 11-39-4756pzhc 1 tablet by mouth every twenty-four hours in the morningmetFORMIN XR (Glucophage-XR) 750 MG 24 hr tablet Indications: Pre-diabetes Take 1 tablet (750 mg) by mouth in the morning and 1 tablet (750 mg) before bedtime. Do not crush, chew, or split.. 60 tablet 05/13/2024 ActiveStart: 03-11-2024 End: 04-42-8200shzm 1 tablet by mouth every twenty-four hours in the morning metFORMIN XR (Glucophage-XR) 500 MG 24 hr tablet Indications: Pre-diabetes Take 1 tablet (500 mg) by mouth in the morning and 1 tablet (500 mg) in the evening. Take with meals. Do not crush, chew, orsplit.. 60 tablet 03/31/2024 04/30/2024 ActiveStart: 07-14-2023 End: 60-83-4294cqne 1 tablet by mouth in the morningmetFORMIN (Glucophage) 500 MG tablet Indications: Glucose intolerance (impaired glucose tolerance) Take 1 tablet (500 mg) by mouth in the morning and 1 tablet (500 mg) in the evening. Take before meals. 60 tablet 07/14/2023 12/16/2023 Discontinued (Therapy completed)Start: 07-14-2023 End: 69-37-5994wxrq 1 tablet by mouth in the morningmetFORMIN (Glucophage) 850 MG tablet Indications: Glucose intolerance (impaired glucose tolerance) Take 1 tablet (850 mg) by mouth in the morning and 1 tablet (850 mg) in the evening. Take before meals. 60 tablet 07/14/2023 12/16/2023 Discontinued (Therapy completed)Start: 01-29-2023 End: 86-39-6063jmca 1 tablet by mouth in the morningmetFORMIN (Glucophage) 1000 MG tablet Indications: Glucose intolerance (impaired glucose tolerance)Take 1 tablet (1,000 mg) by mouth in the morning and 1 tablet (1,000 mg) in the evening. Take with meals. 180 tablet 1 01/29/2023 12/16/2023 Discontinued (Therapy completed)methylPREDNISolone (5 sources)CorticosteroidStart: 06-15-2024 End: 90-55-4609tgjfenNOYKKKEnskuq (Medrol Dospak) 4 MG tablets Indications: Left foot pain Follow schedule on package instructions 21 tablet 06/15/2024 06/22/2024 ActiveStart: 04-17-2024 End: 24-65-4959xuvdmgIBKEYWHtfyro (Medrol Dospak) 4 MG tablets Indications: Acute pain of left knee Take as directed on package. 21 tablet 04/17/2024 04/24/2024 Activenebivolol 5 mg oral tablet (1 source)Start: 11-09-2024 End: 85-56-1168dnur 1 tablet by mouth once dailynebivolol (Bystolic) 5 MG tablet Indications: Palpitations Take 1 tablet (5 mg) by mouth Daily 30 tablet 11/09/2024 12/09/2024 ActiverOPINIRole 1 mg oral tablet (20 sources)Nonergot Dopamine AgonistStart: 75-04-1185aeqh 1 tablet by mouth once daily at bedtimeRopinirole 1 mg tablet Active 1 MG PO Daily at bedtime February 01, 2025 11:00pm administer 1-3 hours before bedtime Complies with drug therapyStart: 50-41-9842fXWEESJcls (Requip) 1 MG tablet Indications: Restless Leg Syndrome One tablet at bedtime 30 tablet 11/09/2024 ActiveStart: 09-15-2023 End: 22-81-7656gBFSCDAwwx (Requip) 0.5 MG tablet Indications: Restless Leg Syndrome One tablet at bedtime 90 tablet 1 08/02/2024 ActiveTirzepatide (1 source)Start: 22-56-0460Owamcmjdgcp (Mounjaro) 2.5 mg/0.5 mL pen injector Active 2.5 MG SUBCUT every week 2.5 30 0 2024 12:00am Type 2 diabetes mellitus Type 2 diabetes mellitus without complications for 4 weeks Complies with drug nahnaiy48 hr venlafaxine 37.5 mg extended release oral capsule (9 sources)Serotonin and Norepinephrine Reuptake InhibitorStart: 11-03-2023 End: 19-78-6707ejrv 1 capsule by mouth once dailyvenlafaxine XR (Effexor XR) 37.5 MG 24 hr capsule Indications: Recurrent major depressive disorder,in partial remission (HCC) (CMS/HCC) Take 1 capsule (37.5 mg) by mouth Daily Do not crush or chew. 30 capsule 12/16/2023 12/25/2023 Discontinued (Side effects) Start: 11-03-2023 End: 25-78-5311tejc 1 tablet by mouth every twenty-four hours at mealtime venlafaxine XR (Effexor XR) 150 MG 24 hr tablet Indications: Recurrent major depressive disorder, in partial remission (HCC) (CMS/HCC) Take 1 tablet (150 mg) by mouth in the morning. Take with meals.Do not crush, chew, or split.. 30 tablet 11/03/2023 12/16/2023 Discontinued (Dose adjustment) Completed/Discontinued Medications MedicationDrug Class(es)DatesSig (Normalized)Sig (Original)atorvastatin 20 mg oral tablet (2 sources)HMG-CoA Reductase InhibitorStart: 03-30-2018 End: 42-17-5875upfm 1 tablet by mouth once daily at bedtimeAtorvastatin 20 mg tablet Discontinued 20 MG PO Daily at bedtime March 30, 2018 12:00am February 02, 2025 7:58am hyperlipidemiadocusate sodium 100 mg oral capsule (2 sources)Start: 04-06-2018 End: 01-05-6004yqaw 1 capsule by mouth twice daily as needed for constipation Docusate Sodium (Colace) 100 mg capsule Discontinued 100 MG PO Twice daily as needed for constipation 60 1 April 06, 2018 9:46am February 02, 2025 7:58am escitalopram 5 mg oral tablet (4 sources)Serotonin Reuptake InhibitorStart: 12-25-2023 End: 99-28-8424kboi 1 tablet by mouth once dailyescitalopram (Lexapro) 5 MG tablet Indications: Recurrent major depressive disorder, in partial remission (HCC) (CMS/HCC) Take 1 tablet (5 mg) by mouth Daily 30 tablet 12/25/2023 02/25/2024 Discontinued (Therapy completed)fluconazole 150 mg oral tablet (4 sources)Azole AntifungalStart: 03-29-2024 End: 25-74-1872hnqz 1 tablet by mouth oncefluconazole (Diflucan) 150 MG tablet Indications: Yeast infection of the skin Take 1 tablet (150 mg) by mouth 1 (one) time for 1 dose 1 tablet 03/29/2024 04/05/2024 Discontinued (Therapy completed) ibuprofen 600 mg oral tablet (2 sources)Nonsteroidal Anti-inflammatory DrugStart: 04-06-2018 End: 50-93-8295xelp 1 tablet by mouth every six hours as needed for pain Ibuprofen 600 mg tablet Discontinued 600 MG PO Q6H as needed for pain 30 April 06, 2018 12:00am February 02, 2025 7:59amliothyronine sodium 0.005 mg oral tablet (1 source)l-Triiodothyronine End: 26-03-7361jfgb 1 tablet by mouth once dailyliothyronine (CYTOMEL) 5 mcg tablet Take 5 mcg by mouth once daily. 0 08/01/2022 DiscontinuedComment on above:Take 5 mcg by mouth once daily.losartan potassium 100 mg oral tablet (2 sources)Angiotensin 2 Receptor BlockerStart: 03-30-2018 End: 97-79-3132obtg 1 tablet by mouth once daily at bedtimeLosartan 100 mg tablet Discontinued 100 MG PO Daily at bedtime March 30, 2018 12:00am February 02, 2025 7:59am htnmeloxicam 15 mg oral tablet (9 sources)Nonsteroidal Anti-inflammatory DrugStart: 08-01-2022 End: 87-11-6845nloc 1 tablet by mouth once dailymeloxicam (MOBIC) 15 mg tablet Indications: Erosive osteoarthritis of both hands Take 1 tablet by mouth once daily. 30 tablet 2 08/01/2022 10/30/2022 ExpiredStart: 10-14-2019 End: 83-81-7488ecth 1 tablet by mouth once dailymeloxicam (MOBIC) 7.5 mg tablet Take 1 tablet by mouth once daily. Stop all other anti-inflammatories 30 tablet 0 10/14/2019 08/01/2022 Discontinued (Changing Therapy/Dosage Form)Comment on above:Take 1 tablet by mouth once daily.Take 1 tablet by mouth once daily. Stop all other anti-inflammatoriesmetaxalone 800 mg oral tablet (1 source) End: 27-06-8409vighibqicj (METAXALL) 800 mg tablet Take 800 mg by mouth as needed. 0 08/01/2022 DiscontinuedComment on above:Take 800 mg by mouth as needed.0.25 mg, 0.5 mg dose 1.5 ml semaglutide 1.34 mg/ml pen injector (3 sources)Start: 02-02-2025 End: 41-43-9901Uzndsepeieu (Ozempic) 0.25 mg or 0.5 mg(2 mg/1.5 mL) pen injector Discontinued 0.25 MG SUBCUT everyweek 1.5 0 February 03, 2025 7:14pm March 02, 2025 8:52am Type 2 diabetes mellitus Type 2 diabetes mellitus without complications for 4 weekssertraline 25 mg oral tablet (4 sources)Serotonin Reuptake InhibitorStart: 02-02-2025 End: 50-24-1850ackf 1 tablet by mouth once dailySertraline (Zoloft) 25 mg tablet Discontinued 25 MG PO Daily 30 30 0 February 01, 2025 11:00pm March 02, 2025 8:48am Anxiety with depression Other specified anxiety disordersStart: 03-30-2018 End: 31-16-1068txcc 1 tablet by mouth once daily at bedtimeSertraline 100 mg tablet Discontinued 100 MG PO Daily at bedtime March 30, 2018 12:00am 2024 7:59amVeozah 45 MG tablet (2 sources)Start: 08-18-2024 End: 15-78-7882jjom 1 tablet by mouth once dailyVeozah 45 MG tablet Take 1 tablet by mouth Daily 08/18/2024 09/01/2024 Discontinued (Therapy completed) Problems Active Problems Problem ClassificationProblemDateDocumented DateEpisodic/Chronic Administrative/social admission (2 sources)Advance directive discussed with patient; 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: [Other specified counseling]21-72-0236NhpcjesgUiiphkc disorders (6 sources)Mixed anxiety and depressive disorder; 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: [Other specified anxiety disorders]86-55-1624JbrxatbVfixlnf dysrhythmias (11 sources)Palpitations; 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: [Tachycardia]Onset: EpisodicDiabetes mellitus without complication (5 sources)Type 2 diabetes mellitus without complications; 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: [Type 2 diabetes mellitus]Onset: 87-95-6361XxswcneNzsgppiws of lipid metabolism (20 sources)Mixed hyperlipidemia; 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: [Mixed hyperlipidemia]Onset: 94-11-8949MdvyajxSoiqdrijm hypertension (20 sources)Essential (primary) hypertension; 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: [Hypertensive disorder]Onset: 62-43-4187OzdcwddAclyrnkuoldcp symptoms and ill-defined conditions (20 sources)Urge incontinence of urine; 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: [Urge incontinence]Onset: 036373-11-4583LnknibaHcrblwlkamhxz and screening for infectious disease (1 source)Encounter for screening for human papillomavirus (HPV); 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: [ENC SCREENING HUMAN PAPILLOMAVIRUS]Onset: 59-84-0528MujrygwpCsijwdg and fatigue (20 sources)Fatigue; 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: [Chronic fatigue, unspecified]Onset: 521393-22-3735XirasjyUmewgwarcf disorders (17 sources)Menopausal syndrome; 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: [Menopausal and female climacteric states]Onset: 992571-87-3854IouzeoaYmkzgsofivnzg mental health disorders (20 sources)Insomnia disorder related to another mental disorder; 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: [Insomnia due to other mental disorder]Onset: 932502-31-4905WqmiehyIsnq disorders (20 sources)Recurrent major depression in partial remission; 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: [Major depressive disorder, recurrent, in partial remission]Onset: 09-17-2022 79-25-9962YbqaawhSwegnht (2 sources)Candidiasis of skin; 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: [Candidiasis of skin and nail] 68-11-6276ZkwdejrqUqddchlghvwrxq (20 sources)Osteoarthritis of joint of bilateral hands; 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: [Erosive (osteo)arthritis]Onset: 63-62-0384CnvdilbSvxww aftercare (3 sources)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; 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-inflammatories (NSAID)]EpisodicOther connective tissue disease (3 sources)History of total knee arthroplasty; 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: [Presence of unspecified artificial knee joint]Onset: 781580-86-6089QfrtgfmXcdev connective tissue disease (2 sources)Pain in left foot; 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: [Pain in left foot]06-15-2024 EpisodicOther diseases of bladder and urethra (20 sources)Overactive bladder; 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: [Overactive bladder]Onset: 266613-82-0361JbmtjeqWmahi female genital disorders (1 source)Other specified noninflammatory disorders of vagina; 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: [OTH SPEC NONINFLAMMATORY D/O VAGINA]Onset: 47-81-9849LphprvzcIvyvh hereditary and degenerative nervous system conditions (20 sources)Restless legs; 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: [Restless legs syndrome]Onset: 648293-45-9710NwxyhrnFtmdg liver diseases (1 source)Inflammatory liver disease, unspecified; 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: [INFLAMMATORY LIVER DISEASE UNS]Onset: 68-02-7820VskamphQacyy liver diseases (20 sources)Fatty (change of) liver, not elsewhere classified; 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: [Other chronic nonalcoholic liver disease]Onset: 72-35-5718AmbefzkEhlvp liver diseases (7 sources)Steatosis of liver; 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: [Fatty (change of) liver, not elsewhere classified]ChronicOther liver diseases (20 sources)Inflammatory disease of liver; 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: [Inflammatory liver disease, unspecified]Onset: 462229-77-6680YxwvvauQxzby liver diseases (3 sources)Elevated liver enzymes level; 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: [Abnormal levels of other serum enzymes]EpisodicOther liver diseases (3 sources)Abnormal levels of other serum enzymes; 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: [Abnormal levels of other serum enzymes]Onset: 26-09-5697PwtzowlsLjugm lower respiratory disease (2 sources)Shortness of breath; 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: [Shortness of breath]Onset: 76-27-7077LhsbgdjbVcvfy nervous system disorders (20 sources)Chronic pain; 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: [Other chronic pain]Onset: 09-17-2022 65-67-8762MpppcokLshvi non-traumatic joint disorders (2 sources)Pain in left knee; 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: [Pain in joint, lower leg]04-17-2024 EpisodicOther non-traumatic joint disorders (1 source)Hip pain; 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: [Pain in right hip]35-52-3703LonqvcjqOvfmu nutritional; endocrine; and metabolic disorders (2 sources)Obesity; 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: [Obesity, unspecified]ChronicOther nutritional; endocrine; and metabolic disorders (1 source)Severe obesity; 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: [Morbid (severe) obesity due to excess calories]ChronicOther nutritional; endocrine; and metabolic disorders (20 sources)Morbid obesity; 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: [Morbid (severe) obesity due to excess calories]Onset: 197598-07-9154IfuwezdBdixd nutritional; endocrine; and metabolic disorders (20 sources)Body mass index 40+ - severely obese; 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: [Body mass index (BMI) 45.0-49.9, adult]Onset: 421308-98-6137DzbpakkHkass screening for suspected conditions (not mental disorders or infectious disease) (13 sources)Encounter for screening mammogram for malignant neoplasm of breast; 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: [Encounter for screening for malignant neoplasm of cervix]Onset: 38-45-3913GtlnbltyCriva upper respiratory infections (2 sources)Acute pansinusitis; 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: [Acute pansinusitis, unspecified] 35-62-7596BvltzutmMtdbgtxq codes; unclassified (20 sources)Dependence on enabling machine or device; 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: [Dependence on other enabling machines and devices]Onset: hronic Residual codes; unclassified (20 sources)Obstructive sleep apnea syndrome; 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: [Obstructive sleep apnea (adult) (pediatric)]Onset: 685497-16-9301GsojjrwVtofffrd codes; unclassified (1 source)Acquired absence of other specified parts of digestive tract; 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: [ACQ ABSENCE OTH PART DIGESTV TRACT]Onset: 03-05-8999Kbxcmldy Spondylosis; intervertebral disc disorders; other back problems (2 sources)Low back pain; 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: [Low back pain]06-03-8423ZlpsylxbLzmpszm and strains (2 sources)Strain of foot; 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: [Strain of unspecified muscle and tendon at ankle and foot level, left foot, initial encounter]78-51-1948Lpvbuxcv Unclassified (1 source)New PatientOnset: 10-30-2022 Past or Other Problems Problem ClassificationProblemDateDocumented DateEpisodic/ChronicDiabetes mellitus without complication (20 sources)Impaired glucose tolerance (oral); 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: [Impaired glucose tolerance]Onset: 10-12-2021 Resolved: 344856-67-2059GvjevbyhRfdmx female genital disorders (20 sources)Pain in female genitalia on intercourse; 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: [Unspecified dyspareunia]Onset: 09-17-2022 Resolved: 927747-68-2109LooqdkaAylux female genital disorders (20 sources)Disorder of female genital system; 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: [Unspecified condition associated with female genital organs and menstrual cycle]Onset: 09-17-2022 Resolved: 601366-49-0625DagrnikhCrwkp nervous system disorders (20 sources)Left-sided piriformis syndrome; 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: [Lesion of sciatic nerve, left lower limb]Onset: 09-17-2022 Resolved: 297352-53-4007KkpcfzaQswpp non-traumatic joint disorders (3 sources)Pain in right knee; 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: [Pain in joint, lower leg]Onset: 523991-09-0730IspwxfhtNahhfkid codes; unclassified (20 sources)Sleep disorder; 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: [Sleep disorder, unspecified]Onset: 287319-12-1189ZbsgyckbRselwcdo codes; unclassified (15 sources)Flushing; 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: [Flushing]Onset: EpisodicThyroid disorders (20 sources)Sick-euthyroid syndrome; 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: [Sick-euthyroid syndrome] Onset: 598685-89-0767Bymwpzsm Results Test NameValueInterpretationReference HvtrvQofjhorlVvU7j HPLC (Bld) [Mass fraction]Ordered By: Maribeth Galvez on 84-07-9732VjL0t (Bld) [Mass fraction]6.5 %[facility]Office [facility] 59-17-8746Bitpsj- up [id number] Naima Hernandez 1970 F Date Provider Department Center 02/16/2025 245-SOURAV SALDANA [facility] Family History Adopted: Yes Problem Relation Age of Onset No Known Problems Mother No Known Problems Father Family Status - Relation Status Age at Mother Father Level of Service:39299 [place] OFFICE/OUTPATIENT NEW HIGH MDM 60 MINUTES Reason for Visit and Comments: New Patient [632] - Patient is here today to establish care with cardiology. Patient states she recently had a 30 day holter and a 72 hour holter, along with a stress test. Patient denies chest pain, Hypertension [624710] Hyperlipidemia [182] Shortness of Breath [] - Sob/duarte with and without activity Palpitations [] - Racing heart Fatigue [46] Dizziness [] - Dizziness/lightheaded with position changesNormalUniversity of Dallas Regional Medical CenterNM KIMBERLYN PERF SPECT REST STRon 85-90-6175[place]uu[place] [address] Nuclear Medicine Report Signed Patient: NAIMA HERNANDEZ MR#: [id number] : 1970 Acct:[id number] Age/Sex: 54 / F ADM Date: 11/03/24 Loc: NM Attending Dr: ENRIQUE ALBA Ordering Physician: ENRIQUE ALBA Date of Service: 11/03/24 Procedure(s): NM kimberlyn perf SPECT rest str Accession Number(s): [id number] cc: ENRIQUE ALBA Patient Name: NAIMA HERNANDEZ MR#: [id number] : 1970 Exam Date: 11/03/2024 Ordering Doctor: DR ENRIQUE ALBA . RADIOLOGY REPORT PROCEDURE: NM KIMBERLYN PERF SPECT REST STR COMPARISON: None. INDICATIONS: ANGINAL EQUIVALENT, SINUS TACHYCARDIA, MULTIFOCAL PVC'S TECHNIQUE: Exam Description: Stress/Rest two-day protocol gated SPECT Rest Imagin.8 mCi Tc-99m Cardiolite IV on 11/03/2024 Stress Imaging 25.5 mCi Tc-99m Cardiolite IV on 11/04/2024 Exercise Protocol: 0.4 mg Lexiscan given IV Heart Rate (bpm): Rest: 100 Max: 110 PMHR: 66 Blood Pressure: Rest: 146/80 Max: 146/86 Symptoms: Rest and peak stress ECG findings were pending, and the exercise portion of the study was pending per attending physician [facility]. For more details, please see separate cardiac stress test report. FINDINGS: QUALITY OF STUDY: Good PERFUSION DEFECT: LOCATION: N/A SIZE: N/A SEVERITY: N/A TYPE: N/A WALL MOTION: Normal wall motion LV SIZE: 108 mL. TID / TCD: 1.0 LVEF: Calculated EF 57%. SUMMARY: Myocardial perfusion imaging study is normal CONCLUSION: 1. Myocardial perfusion study is normal with soft tissue attenuation 2. Global left ventricular systolic function is normal 3. No evidence of significant transient ischemic dilatation Dictated by: Vianney Johnston M.D. on 11/04/2024 at 16:10 Approved by: Vianney Johnston M.D. on 11/04/2024 at 16:13 Dictated By: Vianney Johnston M.D. Signed By: 11/04/24 1615 DD/ 1614 TD/TT: Public Relations Professional:TBHRadiology, Radiologist, MD - 11/04/2024 [place] [address] Nuclear Medicine Report Signed Patient: NAIMA HERNANDEZ MR#: [id number] : 1970 Acct:[id number] Age/Sex: 54 / F ADM Date: 11/03/24 Loc: NM Attending Dr: ENRIQUE ALBA Ordering Physician: ENRIQUE ALBA Date of Service: 11/03/24 Procedure(s): NM kimberlyn perf SPECT rest str Accession Number(s): [id number] cc: ENRIQUE ALBA Patient Name: NAIMA HERNANDEZ MR#: [id number] : 1970 Exam Date: 11/03/2024 Ordering Doctor: DR ENRIQUE ALBA . RADIOLOGY REPORT PROCEDURE: NM KIMBERLYN PERF SPECT REST STR COMPARISON: None. INDICATIONS: ANGINAL EQUIVALENT, SINUS TACHYCARDIA, MULTIFOCAL PVC'S TECHNIQUE: Exam Description: Stress/Rest two-day protocol gated SPECT Rest Imagin.8 mCi Tc-99m Cardiolite IV on 11/03/2024 Stress Imaging 25.5 mCi Tc-99m Cardiolite IV on 11/04/2024 Exercise Protocol: 0.4 mg Lexiscan given IV Heart Rate (bpm): Rest: 100 Max: 110 PMHR: 66 Blood Pressure: Rest: 146/80 Max: 146/86 Symptoms: Rest and peak stress ECG findings were pending, and the exercise portion of the study was pending per attending physician [facility]. For more details, please see separate cardiac stress test report. FINDINGS: QUALITY OF STUDY: Good PERFUSION DEFECT: LOCATION: N/A SIZE: N/A SEVERITY: N/A TYPE: N/A WALL MOTION: Normal wall motion LV SIZE: 108 mL. TID / TCD: 1.0 LVEF: Calculated EF 57%. SUMMARY: Myocardial perfusion imaging study is normal CONCLUSION: 1. Myocardial perfusion study is normal with soft tissue attenuation 2. Global left ventricular systolic function is normal 3. No evidence of significant transient ischemic dilatation Dictated by: Vianney Johnston M.D. on 11/04/2024 at 16:10 Approved by: Vianney Johnston M.D. on 11/04/2024 at 16:13 Dictated By: Vianney Johnston M.D. Signed By: 11/04/24 1615 DD/ 13 TD/TT: Public Relations Professional: MARII [facility] HospitalRadiology Study observation (narrative)[facility] KIMBERLYN PERF SPECT REST STROrdered By: Radiologist Radiology on 75-72-5505FNQQCox [facility] Lawn Work Phone: MLR HEMOGLOBIN A1Con 09-58-8399Zewxnmf [Mass/Vol]166 mg/dLCox Walnut LawnHbA1c (Bld) [Mass fraction]7.4 %High4.5 - 6.2 %[facility] Walnut LawnComment on above:ADA RECOMMENDED LIMIT 4.0 - 6.0 ADA THERAPEUTIC TARGET < 7.0 ACTION SUGGESTED > 7.0 Interpretation and review of laboratory resultsAbnormalNOResearch Belton HospitalCLINISYNC [facility] LawnALL CBC WITH AUTO DIFFon 27-69-2195NJRNTXHXB ABSOLUTE HFSL2TKQXResearch Belton HospitalBasophils/100 WBC (Bld)0.6 %0.2 - 2.0 %NOMPhelps HealthEosinophils/100 WBC (Bld)1.8 %0.9 - 7.0 %[facility] Walnut LawnErythrocyte distribution width (RBC) [Ratio]13.7 %11.0 - 15.0 %[facility] LawnHematocrit (Bld) [Volume fraction]43.9 %36.0 - 48.0 %[facility] LawnHemoglobin (Bld) [Mass/Vol]14.8 g/dL12.0 - 16.0 g/dLCox Walnut LawnIMMATURE GRANULOCYTES ABS AUTO0.02NOResearch Belton HospitalImmature granulocytes/100 WBC (Bld)0.4 %0.0 - 0.5 %[facility] Wal[facility] LawnLYMPHOCYTES ABSOLUTE AUTO1.4NOResearch Belton HospitalLymphocytes/100 WBC (Bld)26.3 %20.5 - 60.0 %[facility] CenterH (RBC) [Entitic mass]28.1 pg26.7 - 34.0 pgSaint Mary's Health Center (RBC) [Mass/Vol]33.7 g/dL29.9 - 35.2 g/dLCox Walnut LawnMCV (RBC) [Entitic vol]83.3 fL 81.0 - 99.0 fLCox Walnut LawnMONOCYTES ABSOLUTE AUTO0.3[facility] Monocytes/100 WBC (Bld)6.2 %1.7 - 12.0 %[facility] LawnNEUTROPHILS ABSOLUTE AUTO 3.3NOMS Fort Hamilton HospitalNeutrophils/100 WBC (Bld)64.7 %43.0 - 75.0 %[facility] Platelet mean volume (Bld) [Entitic vol]10 fL9.5 - 13.5 fLCox Walnut LawnTB EO #0.1NOMS Fort Hamilton HospitalTB BLP148DSQZWashington University Medical Center RBC5.27NOWashington University Medical Center WBC5.1 [facility] LawnCLINISYNCNOMS HealthcareXR Foot - left 3 Viewson 06-09-7346SAUM: XR FOOT 3+ VIEWS LEFT HISTORY: Pain FINDINGS: There is slight narrowing of the 1st metatarsophalangeal articulation. Tarsometatarsal alignment isnormal. There is mild flattening of the arch and slight midfoot arthrosis. There is a tiny plantar calcaneal enthesophyte. Slight hammertoe deformities are seen IMPRESSION: Mild flattening of the arch and slight midfoot arthrosis Small plantar calcaneal enthesophyte . Electronically Signed:Electronically signed by DA PORTER MD at 16-Jun-2024 09:39:44 AM [facility] Da Vargas MD - 06/16/2024 EXAM: XR FOOT 3+ VIEWS LEFT HISTORY: Pain FINDINGS: There is slight narrowing of the 1st metatarsophalangeal articulation. Tarsometatarsal alignment isnormal. There is mild flattening of the arch and slight midfoot arthrosis. There is a tiny plantar calcaneal enthesophyte. Slight hammertoe deformities are seen IMPRESSION: Mild flattening of the arch and slight midfoot arthrosis Small plantar calcaneal enthesophyte . Electronically Signed:Electronically signed by DA PORTER MD at 16-Jun-2024 09:39:44 AM [facility] NOMS HealthcareXR Foot - left 3 ViewsOrdered By: Da Porter on 80-18-1713TSYCCox Walnut Lawn Work Phone: XR FOOT 3+ VIEWS LEFTon 81-15-0333SI FOOT 3+ VIEWS LEFTEXAM: XR FOOT 3+ VIEWS LEFT HISTORY: Pain FINDINGS: There is slight narrowing of the 1st metatarsophalangeal articulation. Tarsometatarsal alignment isnormal. There is mild flattening of the arch and slight midfoot arthrosis. There is a tiny plantar calcaneal enthesophyte. Slight hammertoe deformities are seen IMPRESSION: Mild flattening of the arch and slight midfoot arthrosis Small plantar calcaneal enthesophyte . Electronically Signed:Electronically signed by DA PORTER MD at 16-Jun-2024 09:39:44 AM [facility] TeleradiologyNormalNot AvailableXR Foot - left 3 Viewson 06-15-2024 Radiology Study observation (narrative)NOMS HealthcareXR Knee - left 3 Viewson 69-89-1623QQ KNEE 3 VIEWS LEFT Reason for exam: Left knee pain anterior/medial for two weeks, no injury Views: 3 Findings: A total knee arthroplasty shows normal alignment. There is no evidence of fracture and noabnormal lucency around the hardware. No bone lesions are identified. IMPRESSION: Unremarkable postop appearance. Dictated on: 04/19/2024 1:30 PM This report has been electronically signed and approved by the interpreting Radiologist. Messi Medrano MD - 04/19/2024 XR KNEE 3 VIEWS LEFT Reason for exam: Left knee pain anterior/medial for two weeks, no injury Views: 3 Findings: A total knee arthroplasty shows normal alignment. There is no evidence of fracture and noabnormal lucency around the hardware. No bone lesions are identified. IMPRESSION: Unremarkable postop appearance. Dictated on: 04/19/2024 1:30 PM This report has been electronically signed and approved by the interpreting Radiologist. [facility] HealthcareXR Knee - left 3 ViewsOrdered By: Messi Carballo on 35-43-2071SFIKCox Walnut Lawn Work Phone: XR KNEE 3 VIEWS LEFTon 19-33-8751EX KNEE 3 VIEWS LEFT XR KNEE 3 VIEWS LEFT Reason for exam: Left knee pain anterior/medial for two weeks, no injury Views: 3 Findings: A total knee arthroplasty shows normal alignment. There is no evidence of fracture and noabnormal lucency around the hardware. No bone lesions are identified. IMPRESSION: Unremarkable postop appearance. Dictated on: 04/19/2024 1:30 PM This report has been electronically signed and approved by the interpreting Radiologist.NormalNot AvailableXR Knee - left 3 Viewson 05-98-5710Woauctliw Study observation (narrative)NOEL NazarioIMA HPV,AGE GDLNon 04-03-2024 AGE GDLN ACOG TESTINGNote.[facility] HealthcareComment on above:TESTS RESULT FLAG UNITS REF RANGE LAB Clinician Provided Cytology Information Source.............Cervix;Endocervix No. of containers..01 ThinPrep Vial Age Algo ACOG Annabelle... FLAG LEGEND: L-Low Normal,H-High Normal,LL-Alert Low,HH-Alert High <-Panic Low,>-Panic High,A-Abnormal,AA-Critical Abnormal Performed at: 01 =[address] [address] Grace Ramos MD, HPV APTIMANegativeNegativeNOMS HealthcareComment on above:This nucleic acid amplification test detects fourteen high- risk HPV types (16,18,31,33,35,39,45,51,52,56,58,59,66,68) without differentiation. Performed at: =[address] [id number] Technician Automated Equipment: Grace Ramos MD, Phone: [phone] Performed at: [address] [id number] Technician Automated Equipment: Grace Ramos MD, Phone: [phone] IGP, APTIMA HPV, RFX 16/18,45Note.NOMS HealthcareComment on above:TESTS RESULT FLAG UNITS REF RANGE LAB DIAGNOSIS: 02 NEGATIVE FOR INTRAEPITHELIAL LESION OR MALIGNANCY. Specimen adequacy: 02 Satisfactory for evaluation. Endocervical and/or squamous metaplastic cells (endocervical component) are present. Performed by: Nathalia Ellis, Electrical Electronics Engineers (ASCP) . 02 Note: Note 02 The [...] High,A-Abnormal,AA-Critical Abnormal Performed at: 02 [address] [facility] [address] [address] Grace Ramos MD, BRUSH-SPATULA CERVIX ENDOCERVIX CLINISYNCNOUT HealthcareALL LIPID PROFILE (FASTING)on 00-56-2154LLRV HDL RATIO 4.5NOUT HealthcareComment on above:3.3 - 4.4 LOW RISK 4.4 - 7.1 AVERAGE RISK 7.1 - 11.0 MODERATE RISK >11.0 HIGH RISK Cholesterol [Mass/Vol]232 mg/dLHighNINF - 200 mg/dLNOResearch Belton HospitalCholesterol in HDL [Mass/Vol]51 mg/dL40 - 60 mg/dLNOUT HealthcareComment on above:> or =60 mg/dl - LOW CARDIOVASCULAR RISK <40 mg/dl - HIGH CARDIOVASCULAR RISK Magnesium [Mass/Vol]122 mg/dLNOUT HealthcareComment on above:<100 mg/dl OPTIMAL 100-129 mg/dl NEAR OR ABOVE OPTIMAL 130-159 mg/dl BORDERLINE HIGH 160-189 mg/dl HIGH >190 mg/dl VERY HIGH Magnesium [Mass/Vol]59.2 mg/dLNOUT HealthcareTriglyceride [Mass/Vol]296 mg/dL HighNINF - 150 mg/dLNOResearch Belton HospitalCCF CMP (CMP) (FOR REMOTE COUNTS INCLUDE [facility] AT THE [facility] USE)on 98-92-2435Ptiadye [Mass/Vol]3.9 g/dL3.4 - 5.0 g/dLNOUT HealthcareALBUMIN GLOBULIN RATIO1.1NOMS HealthcareALP [Catalytic activity/Vol]102 U/L46 - 116 U/L NOMS HealthcareALT [Catalytic activity/Vol]153 U/LHigh14 - 59 U/LNOMS Healthcare Anion gap [Moles/Vol]14.3 mmol/LNOMS HealthcareAST [Catalytic activity/Vol]98 U/LHigh15 - 37 U/LNOMS HealthcareBilirubin [Mass/Vol]0.4 mg/dL0.2 - 1.0 mg/dL [facility] HealthcareCalcium [Mass/Vol]8.4 mg/dLLow8.5 - 10.1 mg/dLNOUT Healthcare Chloride [Moles/Vol]105 mmol/L98 - 107 mmol/LNOMS HealthcareCO2 [Moles/Vol]29.7 mmol/L21.0 - 32.0 mmol/LNOMS HealthcareCreatinine [Mass/Vol]0.98 mg/dL0.55 - 1.02 mg/dLNOUT HealthcareGFR/1.73 sq M.predicted CKD-EPI (S/P/Bld) [Vol rate/Area]>60>=60 mL/min/1.73m 2NOMS HealthcareGlobulin (S) [Mass/Vol]3.6 g/dL [facility] HealthcareGlucose [Mass/Vol]112 mg/yUFakf62 - 106 mg/dLNOResearch Belton Hospital Potassium [Moles/Vol]4 mmol/L3.5 - 5.1 mmol/LNOMS HealthcareProtein [Mass/Vol] 7.5 g/dL6.4 - 8.2 g/dLNOResearch Belton HospitalSodium [Moles/Vol]145 mmol/L136 - 145 mmol/LNOMS HealthcareTBH EGFR-NON AF INZHTLNX08Mpn>=60 mL/min/1.73m 2NOMS HealthcareUrea nitrogen [Mass/Vol]13 mg/dL7.0 - 18.0 mg/dLNOResearch Belton HospitalUrea nitrogen/Creatinine [Mass ratio]13.3 mg/mgNOResearch Belton HospitalMM TOMOSYNTHESIS SCREENING BIon 79-34-8292[place] [address] Mammography Report Signed Patient: Naima Hernandez MR#: [id number] : 1970 Acct:[id number] Age/Sex: 53 / F ADM Date: 03/05/24 Loc: MAMMO Attending Dr: ENRIQUE ALBA Ordering Physician: ENRIQUE ALBA Results: Date of Service: 03/05/24 Follow Up: Procedure(s): MM tomosynthesis screening BI Accession Number(s): [id number] cc: ENRIQUE ALBA Patient Name: NAIMA HERNANDEZ MR#: [id number] : 1970 Exam Date: 03/05/2024 Ordering Doctor: DR ENRIQUE ALBA . RADIOLOGY REPORT PROCEDURE: MM TOMOSYNTHESIS SCREENING BI COMPARISON: MG MAMM SCREEN 3D ENMANUEL CAD, 11/05/2021. MAMMO ENMANUEL SCREEN, 07/12/2020. MG MAMM SCREEN ENMANUEL W CAD, 05/14/2019. MG MAMM ENMANUEL DIAG W CAD DIG, 05/12/2013. INDICATIONS: Screening Calculator Name NCI Breast Cancer Risk Assessment Tool 5 Year Breast Cancer Risk 1.80% Lifetime Breast Cancer Risk 13.50% Personal Breast Cancer No Personal Ovarian Cancer No Treatments None Family Cancers None LOCATION: [facility] BREAST COMPOSITION: There are scattered areas of [...] PALPABLE LUMP SHOULD BE BIOPSIED. Dictated by: Mila Starks M.D. on 03/05/2024 at 11:03 Approved by: Mila Starks M.D. on 03/05/2024 at 11:04 Dictated By: Mila Starks M.D. Signed By: 03/05/24 1105 DD/ 1104 TD/TT: Public Relations Professional:TBHRadiology, Radiologist, MD - 03/05/2024 [place] [address] Mammography Report Signed Patient: Naima Hernandez MR#: [id number] : 1970 Acct:[id number] Age/Sex: 53 / F ADM Date: 03/05/24 Loc: MAMMO Attending Dr: ENRIQUE ALBA Ordering Physician: ENRIQUE ALBA Results: Date of Service: 03/05/24 Follow Up: Procedure(s): MM tomosynthesis screening BI Accession Number(s): [id number] cc: ENRIQUE ALBA Patient Name: NAIMA HERNANDEZ MR#: [id number] : 1970 Exam Date: 03/05/2024 Ordering Doctor: DR ENRIQUE ALBA . RADIOLOGY REPORT PROCEDURE: MM TOMOSYNTHESIS SCREENING BI COMPARISON: MG MAMM SCREEN 3D ENMANUEL CAD, 11/05/2021. MAMMO ENMANUEL SCREEN, 07/12/2020. MG MAMM SCREEN ENMANUEL W CAD, 05/14/2019. MG MAMM ENMANUEL DIAG W CAD DIG, 05/12/2013. INDICATIONS: Screening Calculator Name NCI Breast Cancer Risk Assessment Tool 5 Year Breast Cancer Risk 1.80% Lifetime Breast Cancer Risk 13.50% Personal Breast Cancer No Personal Ovarian Cancer No Treatments None Family Cancers None LOCATION: [facility] BREAST COMPOSITION: There are scattered areas of [...] PALPABLE LUMP SHOULD BE BIOPSIED. Dictated by: Mila Starks M.D. on 03/05/2024 at 11:03 Approved by: Mila Starks M.D. on 03/05/2024 at 11:04 Dictated By: Mila Starks M.D. Signed By: 03/05/24 1105 DD/ 1104 TD/TT: Public Relations Professional: MARII [facility] HospitalRadiology Study observation (narrative)[facility] TOMOSYNTHESIS SCREENING BIOrdered By: Radiologist Radiology on 03-89-4035RSASCox Walnut Lawn Work Phone: No Panel Informationon 98-79-7870Ngeppxfmnjohgl and review of laboratory resultsAbnormalNOResearch Belton HospitalCLINISYNCNALLIANCEHEALTH [facility]ONCA [facility] [place] HealthcareXR DEXA AXIAL SKELETONon 62-80-8765L[address] [address] XRay Report Signed Patient: Naima Hernandez MR#: [id number] : 1970 Acct:[id number] Age/Sex: 53 / F ADM Date: 03/05/24 Loc: MAMMO Attending Dr: ENRIQUE ALBA Ordering Physician: ENRIQUE ALBA Date of Service: 03/05/24 Procedure(s): XR DEXA axial skeleton Accession Number(s): [id number] cc: ENRIQUE ALBA [address] [address] Patient Name: NAIMA HERNANDEZ MRN: [id number] date: 1970 Sex: F Assigned Patient Location: MAMMO Current Patient Location: [facility] Accession/Order Number: [id number] Exam Date: 03/05/2024 07:00 Report Date: 03/05/2024 [...] prevention and treatment of osteoporosis. Osteoporos Int. 2021;33(10):7337-1260. doi: 10.1007/a82598-934-75970-e. Epub 2021Aug 23. Erratum in: Osteoporos Int. 2021Nov 22;: PMID: 88033372; PMCID: [id number]. Electronically authenticated by: MILA STARKS Date: 03/05/2024 07:37 Dictated By: Mila Starks M.D. Signed By: 03/05/24 0739 DD/ 0737 TD/TT: Public Relations Professional:TBHRadiology, Radiologist, - 03/05/2024 [place] [address] XRay Report Signed Patient: Naima Hernandez MR#: [id number] : 1970 Acct:[id number] Age/Sex: 53 / F ADM Date: 03/05/24 Loc: MAMMO Attending Dr: ENRIQUE ALBA Ordering Physician: ENRIQUE ALBA Date of Service: 03/05/24 Procedure(s): XR DEXA axial skeleton Accession Number(s): [id number] cc: ENRIQUE ALBA [place] [address] Patient Name: NAIMA HERNANDEZ MRN: [facility]:[id number] date: 1970 Sex: F Assigned Patient Location: [facility] Current Patient Location: [facility] Accession/Order Number: [id number] Exam Date: 03/05/2024 07:00 Report Date: 03/05/2024 [...] prevention and treatment of osteoporosis. Osteoporos Int. 2021;33(10):9128-7839. doi: 10.1007/j40015-189-14997-u. Epub 2021Aug 23. Erratum in: Osteoporos Int. 2021Nov 22;: PMID: 26137099; PMCID: [id number]. Electronically authenticated by: MILA STARKS Date: 03/05/2024 07:37 Dictated By: Mila Starks M.D. Signed By: 03/05/24738 DD/ 6 TD/TT: Public Relations Professional: MARII HealthcareRadiology Study observation (narrative)Cox Walnut LawnXR DEXA AXIAL SKELETONOrdered By: Radiologist Radiology on 67-46-9962[facility] [place] Work Phone: cNOVon [phone] Visit (GASTAV) NAIMA HERNANDEZ ([id number]) 1970 F Date Time Provider Department 10/30/22 1:00 PM RADHA ABDUL During your visit today, we recorded the following information about you: Weight Height 120.2 kg 1.6 m Radha Richey MD 10/30/2022 2:34 PM Signed [facility] Mindy Richey MD, FACG, FAASLD Director, [facility] Consult Requested By: Mike Salgado [address] [facility] [address] for evaluation of her fatty liver .. 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 Please feel free to contact me if I can be of further assistance to you {I spent 45 minutes in the visit, with more than 50% of the total hpbw-jk-kxyq time of the visit in counseling / coordination of care. Referring Provider: MIKE SALGADO [[id number]] Allergies As of Date: 10/30/2022 (No Known Allergies) Date Reviewed: 10/30/2022 Reviewed by: RIVER Stuart - Fully Assessed Reason for Visit: New Patient [172] Cmt: Consult for fatty liver Primary Visit Diagnosis:Fatty liver [K76.0] Other Visit Diagnosis:Class 3 severe obesity due to excess calories in adult, unspecified BMI, unspecified whether serious comorbidity present (HCC) [E66.01] Order(s):CELIAC SCREEN WITH REFLEX [SQCELSCR] Order #: [id number] FUTURE HEPATITIS A ANTIBODY, IGG [SQAHAVG] Order #: [id number] FUTURE (more content not included)...NormalOur Lady of Mercy Hospital - AndersonOVon 36-22-9539OYITBicqfr Visit (RHEUAV) NAIMA HERNANDEZ ([id number]) 1970 F Date Time Provider Department 08/01/22 3:00 PM MARIAJOSE STALLWORTH During your visit today, we recorded the following information about you: Pulse Blood pressure 101/minute 177/81 Mariajose Stallworth MD 08/01/2022 3:52 PM Signed Rheumatology Outpatient Clinic Date of Service: 08/01/2022 Patient: Naima Hernandez Medical Record: [id number] Primary Care Physician: Zeferino Flores Last Rheumatology visit: None at [facility] History of Present Illness Naima Hernandez is a 51 year old White female [...] Frequency: Continuous Continuous Intervention/Comfort measure: Medication;Massage;Therapeutic techniques-CPRP Medication;Relaxation;Heat;Exercise;Massage Comments: Fingers, toes, left hip, shoulders -- [...] , low transverse COLONOSCOP W/ OR W/O [facility] SPEC Colonoscopy EGD EXTRACTION, ERUPTED TOOTH OR EXPOSED ROOT (ELEVATION AND/OR FORCEPS REMOVAL) KNEE SCOPE,MENISECTOMY,MED OR LAT Bilateral Family History No family history on file. Social History Social History Tobacco Use Smoking status: Never Smokeless tobacco: Never Substance Use Topics Alcohol use: No Drug use: No C (more content not included)...NormalMckitrick Hospital [place] clinicAmmoniaon 66-07-3804Ktrcfzh (P) [Moles/Vol]19 umol/JIypvdp64-60YewizcsqnCincinnati Va Medical CenterComment on above:Order Comment: Reason for Exam Elevated liver enzymes;Fatty liverResult Comment: PERFORMED BY: [place] [address] PATHOLOGIST MEAT PACKAGER DAGMAR CANO M.D.Performed By: #### CBC, CMP, AMM, ADAL, PT, LIPID #### [place] [address] USAComplete Blood Count Auto Diffon 07-06-8523Lagcelikr (Bld) [#/Vol]0.0 10*3/uLNormal0.0-0.2FSalem City HospitalComment on above:Order Comment: Reason for Exam Elevated liver enzymes;Fatty liverResult Comment: PERFORMED BY: [place] [address] PATHOLOGIST MEAT PACKAGER DAGMAR CANO M.D.Performed By: #### CBC, CMP, AMM, ADAL, PT, LIPID #### [facility] [address] [place] [address] USABasophils/100 WBC (Bld)0.4 %Normal.[facility] Va Medical CenterComment on above:Order Comment: Reason for Exam Elevated liver enzymes;Fatty liverPerformed By: #### CBC, CMP, AMM, ADAL, PT, LIPID #### [address] [address] USAEosinophils (Bld) [#/Vol]0.1 10*3/uLNormal0.0-0.45 [facility] Medical CenterComment on above:Order Comment: Reason for Exam Elevated liver enzymes;Fatty liverPerformed By: #### CBC, CMP, AMM, ADAL, PT, LIPID #### [facility] [address] [place] [address] USAEosinophils/100 WBC (Bld)1.1 %Normal.[facility] Va Medical CenterComment on above:Order Comment: Reason for Exam Elevated liver enzymes;Fatty liverPerformed By: #### CBC, CMP, AMM, ADAL, PT, LIPID #### [facility] [address] [place] [address] USAErythrocyte distribution width (RBC) [Ratio]14.6 %Normal 11.9-15.3FSalem City HospitalComment on above:Order Comment: Reason for Exam Elevated liver enzymes;Fatty liverPerformed By: #### CBC, CMP, AMM, ADAL, PT, LIPID #### [place] [address] USAHematocrit (Bld) [Volume fraction]45.3 %Brcrql22.0-46.4 [facility] Medical CenterComment on above:Order Comment: Reason for Exam Elevated liver enzymes;Fatty liverPerformed By: #### CBC, CMP, AMM, ADAL, PT, LIPID #### [place] [address] USAHemoglobin (Bld) [Mass/Vol]15.2 g/qRWvkyxo20.8-15.4 [facility] Medical CenterComment on above:Order Comment: Reason for Exam Elevated liver enzymes;Fatty liverPerformed By: #### CBC, CMP, AMM, ADAL, PT, LIPID #### [facility] [address] [place] [address] USALymphocytes (Bld) [#/Vol]1.6 10*3/uLNormal1.00-4.8 [facility] Medical CenterComment on above:Order Comment: Reason for Exam Elevated liver enzymes;Fatty liverPerformed By: #### CBC, CMP, AMM, ADAL, PT, LIPID #### [facility] [address] [place] [address] USALymphocytes/100 WBC (Bld)26.9 %Normal.[facility] Va Medical CenterComment on above:Order Comment: Reason for Exam Elevated liver enzymes;Fatty liverPerformed By: #### CBC, CMP, AMM, ADAL, PT, LIPID #### [facility] [address]H (RBC) [Entitic mass]27.3 vdNdepnj12.7-34.3FSalem City HospitalComment on above:Order Comment: Reason for Exam Elevated liver enzymes;Fatty liverPerformed By: #### CBC, CMP, AMM, ADAL, PT, LIPID #### [address]V (RBC) [Entitic vol]81.5 fHSgdloe43-574IhbiouiimCincinnati Va Medical CenterComment on above:Order Comment: Reason for Exam Elevated liver enzymes;Fatty liverPerformed By: #### CBC, CMP, AMM, ADAL, PT, LIPID #### [place] [address] USAMean Corpuscular HGB Conc33.5 g/eUMcryam53.0-35.0C[facility] CenterComment on above:Order Comment: Reason for Exam Elevated liver enzymes;Fatty liverPerformed By: #### CBC, CMP, AMM, ADAL, PT, LIPID #### [place] [address] USAMonocytes (Bld) [#/Vol]0.4 10*3/uLNormal0.0-0.8C[facility] Va Medical CenterComment on above:Order Comment: Reason for Exam Elevated liver enzymes;Fatty liverPerformed By: #### CBC, CMP, AMM, ADAL, PT, LIPID #### [place] [address] USAMonocytes/100 WBC (Bld)6.3 %Normal.[facility] Va Medical CenterComment on above:Order Comment: Reason for Exam Elevated liver enzymes;Fatty liverPerformed By: #### CBC, CMP, AMM, ADAL, PT, LIPID #### [facility] [address] [place] [id number] USANeutrophils (Bld) [#/Vol]3.9 10*3/uLNormal1.8-7.7FSalem City HospitalComment on above:Order Comment: Reason for Exam Elevated liver enzymes;Fatty liverPerformed By: #### CBC, CMP, AMM, ADAL, PT, LIPID #### [facility] [address] [place] [address] USANeutrophils/100 WBC (Bld)65.3 %Normal.[facility] Medical CenterComment on above:Order Comment: Reason for Exam Elevated liver enzymes;Fatty liverPerformed By: #### CBC, CMP, AMM, ADAL, PT, LIPID #### [facility] [address] [place] [address] USANucleated RBC/100 WBC (Bld) [Ratio]0.2 %Normal0-0.5 [facility] CenterComaspirus iron river hospital on above:Order Comment: Reason for Exam Elevated liver enzymes;Fatty liverPerformed By: #### CBC, CMP, AMM, ADAL, PT, LIPID #### [facility] [address] [place] [address] USAPlatelet mean volume (Bld) [Entitic vol]8.2 fLNormal 6.3-10.7FSalem City HospitalComaspirus iron river hospital on above:Order Comment: Reason for Exam Elevated liver enzymes;Fatty liverPerformed By: #### CBC, CMP, AMM, ADAL, PT, LIPID #### [facility] [address] [place] [address] USAPlatelets (Bld) [#/Vol]282 10*3/jRHjzryv045-418ZyixstlivCincinnati Va Medical CenterComaspirus iron river hospital on above:Order Comment: Reason for Exam Elevated liver enzymes;Fatty liverPerformed By: #### CBC, CMP, AMM, ADAL, PT, LIPID #### [facility] [address] [place] [address] USARBC (Bld) [#/Vol]5.56 10*6/uLHigh3.60-5.00C[facility] CenterComment on above:Order Comment: Reason for Exam Elevated liver enzymes;Fatty liverPerformed By: #### CBC, CMP, AMM, ADAL, PT, LIPID #### [facility] [address] [place] [address] USAWBC (Bld) [#/Vol]5.9 10*3/uLNormal4.5-11.0[facility] Medical CenterComment on above:Order Comment: Reason for Exam Elevated liver enzymes;Fatty liverPerformed By: #### CBC, CMP, AMM, ADAL, PT, LIPID #### [facility] [address] [place] [address] USAComprehensive Metabolic Panelon [id number] [Mass/Vol]4.4 g/dLNormal3.2-5.5FSalem City HospitalComment on above:Order Comment: Reason for Exam Elevated liver enzymes;Fatty liverPerformed By: #### CBC, CMP, AMM, ADAL, PT, LIPID #### [place] [address] USAAlbumin/Globulin [Mass ratio]1.6 {ratio}NormalCincinnati Va Medical CenterComment on above:Order Comment: Reason for Exam Elevated liver enzymes;Fatty liverPerformed By: #### CBC, CMP, AMM, ADAL, PT, LIPID #### [facility] [address] [place] [address] USAALP [Catalytic activity/Vol]75 U/EOqmdyq00-89EpiiyftgzCincinnati Va Medical CenterComment on above:Order Comment: Reason for Exam Elevated liver enzymes;Fatty liverPerformed By: #### CBC, CMP, AMM, ADAL, PT, LIPID #### [facility] [address] [place] [address] USAALT [Catalytic activity/Vol]71 U/PDqvr07-41MwtxrubcoCincinnati Va Medical CenterComment on above:Order Comment: Reason for Exam Elevated liver enzymes;Fatty liverPerformed By: #### CBC, CMP, AMM, ADAL, PT, LIPID #### [facility] [address] [place] [address] USAAnion gap [Moles/Vol]11.4 mmol/LNormal6.0-15.0C[facility] Medical CenterComment on above:Order Comment: Reason for Exam Elevated liver enzymes;Fatty liverPerformed By: #### CBC, CMP, AMM, ADAL, PT, LIPID #### [facility] [address] [place] [address] USAAST [Catalytic activity/Vol]51 U/MOwhj97-45CvwotvwpfCincinnati Va Medical CenterComment on above:Order Comment: Reason for Exam Elevated liver enzymes;Fatty liverPerformed By: #### CBC, CMP, AMM, ADAL, PT, LIPID #### [facility] [address] [place] [address] USABilirubin [Mass/Vol]0.7 mg/dLNormal0.3-1.2FSalem City HospitalComment on above:Order Comment: Reason for Exam Elevated liver enzymes;Fatty liverPerformed By: #### CBC, CMP, AMM, ADAL, PT, LIPID #### [facility] [address] [place] [address] USACalcium [Mass/Vol]9.3 mg/dLNormal8.2-10.2FSalem City HospitalComment on above:Order Comment: Reason for Exam Elevated liver enzymes;Fatty liverPerformed By: #### CBC, CMP, AMM, ADAL, PT, LIPID #### [facility] [address] [place] [address] USAChloride [Moles/Vol]102 mmol/NFbyink21-817BdcyxkvpuCincinnati Va Medical CenterComment on above:Order Comment: Reason for Exam Elevated liver enzymes;Fatty liverPerformed By: #### CBC, CMP, AMM, ADAL, PT, LIPID #### [facility] [address] [place] [address] USACO2 [Moles/Vol]25.6 mmol/YKbxfzg78.0-30.0C[facility] Medical CenterComment on above:Order Comment: Reason for Exam Elevated liver enzymes;Fatty liverPerformed By: #### CBC, CMP, AMM, ADAL, PT, LIPID #### [facility] [address] [place] [address] USACreatinine [Mass/Vol]0.78 mg/dLNormal0.44-1.03C[facility] Va Medical CenterComment on above:Order Comment: Reason for Exam Elevated liver enzymes;Fatty liverPerformed By: #### CBC, CMP, AMM, ADAL, PT, LIPID #### [facility] [address] [place] [id number] USAEstimated GFR ( Daphne> 60NormMercy Health West HospitalComment on above:Order Comment: Reason for Exam Elevated liver enzymes;Fatty liverResult Comment: GFR estimated reference range: According to KDOQI guidelines, <60 ml/min/1.73m2 is sufficient to diagnose a patient with chronic kidney disease.Performed By: #### CBC, CMP, AMM, ADAL, PT, LIPID #### [facility] [address] [place] [id number] USAEstimated GFR (Non- Am> 60NoMercy Health Lorain HospitalComment on above:Order Comment: Reason for Exam Elevated liver enzymes;Fatty liverPerformed By: #### CBC, CMP, AMM, ADAL, PT, LIPID #### [facility] [address] [place] [id number] USAGlobulin (S) [Mass/Vol]2.7 g/dLNoMercy Health Lorain HospitalComment on above:Order Comment: Reason for Exam Elevated liver enzymes;Fatty liverPerformed By: #### CBC, CMP, AMM, ADAL, PT, LIPID #### [facility] [address] [place] [id number] USAGlucose [Mass/Vol]96 mg/cSCpxxjc41-356SwwkvltrnCincinnati Va Medical CenterComment on above:Order Comment: Reason for Exam Elevated liver enzymes;Fatty liverResult Comment: Random Glucose Reference Range is dependent on time and content of last meal. Glucose of more than 200 mg/dL in a nonstressed, ambulatory subject supports the diagnosis of Diabetes Mellitus. ADA recommended reference rangePerformed By: #### CBC, CMP, AMM, ADAL, PT, LIPID #### [facility] [address] [id number] USAPotassium [Moles/Vol]4.0 mmol/LNormal3.5-5.1FSalem City HospitalComment on above:Order Comment: Reason for Exam Elevated liver enzymes;Fatty liverPerformed By: #### CBC, CMP, AMM, ADAL, PT, LIPID #### [facility] [address] [place] [address] USAProtein [Mass/Vol]7.1 g/dLNormal6.1-7.9C[facility] Medical CenterComment on above:Order Comment: Reason for Exam Elevated liver enzymes;Fatty liverPerformed By: #### CBC, CMP, AMM, ADAL, PT, LIPID #### [facility] [address] [place] [address] USASodium [Moles/Vol]135 mmol/WRao037-725DocvjyrkhCincinnati Va Medical CenterComment on above:Order Comment: Reason for Exam Elevated liver enzymes;Fatty liverPerformed By: #### CBC, CMP, AMM, ADAL, PT, LIPID #### [facility] [address] [place] [address] USAUrea nitrogen [Mass/Vol]11 mg/dLNormal9-23C[facility] Medical CenterComment on above:Order Comment: Reason for Exam Elevated liver enzymes;Fatty liverPerformed By: #### CBC, CMP, AMM, ADAL, PT, LIPID #### [facility] [address] [place] [address] USAFerritinon [id number] [Mass/Vol]127.6 ng/mLNormal 11-306.8C[facility] Medical CenterComment on above:Order Comment: Reason for Exam Elevated liver enzymes;Fatty liverPerformed By: #### CBC, CMP, AMM, ADAL, PT, LIPID #### [facility] [address] [place] [address] USALipid Panelon [id number] [Mass/Vol]226 mg/dL Txjh106-281HjiihfecdCincinnati Va Medical CenterComment on above:Order Comment: Reason for Exam Elevated liver enzymes;Fatty liverResult Comment: Chol less than 200 mg/dl low risk Chol 201-239 mg/dl borderline risk Chol 240 mg/dl and greater high riskPerformed By: #### CBC, CMP, AMM, ADAL, PT, LIPID #### [facility] [address] [place] [address] USACholesterol in HDL [Mass/Vol]50 mg/aOKogkdd15-57RpwpqxuijCincinnati Va Medical CenterComment on above:Order Comment: Reason for Exam Elevated liver enzymes;Fatty liverResult Comment: HDL CHOL ATP-III CLASSIFICATION Cardiovascular Risk HDL > or equal to 60 mg/dL LOW HDL < 40 mg/dL HIGHPerformed By: #### CBC, CMP, AMM, ADAL, PT, LIPID #### [facility] [address] [place] [address] USACholesterol.total/Cholesterol in HDL [Mass ratio]4.5 {ratio}Normal<5.0C[facility] Va Medical CenterComment on above:Order Comment: Reason for Exam Elevated liver enzymes;Fatty liverResult Comment: PERFORMED BY: [place] [address] PATHOLOGIST MEAT PACKAGER DAGMAR CANO M.D.Performed By: #### CBC, CMP, AMM, ADAL, PT, LIPID #### [facility] [address] [place] [address] USALDL Cholesterol,Evxfvpeynf629 mg/dLHigh0-100C[facility] Medical CenterComment on above:Order Comment: Reason for Exam Elevated liver enzymes;Fatty liverResult Comment: LDL ATP III CLASSIFICATION LDL less than 100 mg/dL Optimal LDL 100-129 mg/dL Near or above optimal LDL 130-159 mg/dL Borderline high LDL 160-189 mg/dL High LDL greater than 189 mg/dL Very highPerformed By: #### CBC, CMP, AMM, ADAL, PT, LIPID #### [facility] [address] [place] [address] USATriglyceride w/Teahdx821 mg/bTQiux56-508DuhhipltqCincinnati Va Medical CenterComment on above:Order Comment: Reason for Exam Elevated liver enzymes;Fatty liverResult Comment: TRIG ATP III CLASSIFICATION TRIG less than 150 mg/dL Normal TRIG 150-199 mg/dL Borderline high TRIG 200-500 mg/dL High TRIG greater than 500 mg/dL Very high Standard traceable to the Center for Disease Conrtrol and Prevention (CDC) test method.Performed By: #### CBC, CMP, AMM, ADAL, PT, LIPID #### [facility] [address] [place] [address] USAVLDL KMFVIJZZKHK51 mg/dLNormalCincinnati Va Medical CenterComment on above:Order Comment: Reason for Exam Elevated liver enzymes;Fatty liverPerformed By: #### CBC, CMP, AMM, ADAL, PT, LIPID #### [facility] [address] [place] [address] USAProthrombin Time INRon [id number] Coag (PPP) [Relative time]1.1 {INR}NormalCincinnati Va Medical CenterComment on above:Order Comment: Reason for Exam Elevated liver enzymes;Fatty liverResult Comment: INR Therapeutic Range A) Pre- and [...] heart valves: 3 - 4.5 PERFORMED BY: [place] [address] PATHOLOGIST MEAT PACKAGER DAGMAR CANO M.D.Performed By: #### CBC, CMP, AMM, ADAL, PT, LIPID #### [facility] [address] [place] [address] USAPT Coag (PPP) [Time]12.1 sNormal9.0-12.9C[facility] Va Medical CenterComment on above:Order Comment: Reason for Exam Elevated liver enzymes;Fatty liverPerformed By: #### CBC, CMP, AMM, ADAL, PT, LIPID #### [facility] [address] [place] [address] USAMG MAMM SCREEN 3D ENMANUEL CADon [id number] MAMM SCREEN 3D ENMANUEL CADPatient: HERNANDEZNAIMA Exam Date: 11/05/2021 : 1970 Gender:F Ordering : DR OSCAR NAVARRO . Admission #: [id number] Family : Order #: [id number] CLICK HERE TO VIEW EXAM RADIOLOGY REPORT [...] LOCATION: [facility] BREAST COMPOSITION: Scattered areas fibroglandular density. FINDINGS: [...] by: Montrell Romeo MD on 11/05/2021 at 10:43Peoples HospitalOG PANEL 2: 30 to 65on 11-05-2021..NormalThe [facility] YoungstownComaspirus iron river hospital on above:Result Comment: Performed at: WBPerformed By: #### [id number] #### [facility] [address] [place] [address] Dr. Peg Alexander Gdln ACOG Kqmyemj92-11OtqycfFcoAshtabula County Medical CenterComment on above:Performed By: #### [id number] #### [facility] [address] [place] [address] Dr. Peg ShelbyDIAGNOSIS:CommentSamaritan North Health Center on above: Result Comment: NEGATIVE FOR INTRAEPITHELIAL LESION OR MALIGNANCY. Performed at: WBPerformed By: #### [id number] #### [facility] [address] [place] [address] Dr. Peg ShelbyHPV AptimaNegativeNormalNegativeOhiohealth Riverside Methodist HospitalComaspirus iron river hospital on above:Result Comment: This nucleic acid amplification test detects fourteen high-risk HPV types (16,18,31,33,35,39,45,51,52,56,58,59,66,68) without differentiation. Performed at: =GPerformed By: #### [id number] #### [facility] [address] [place] [address] Dr. Peg ShelbyMethrobertology:CommentSamaritan North Health Center on above: Result Comment: This liquid based ThinPrep(R) pap test was screened with the use of an image guided system. Performed at: WBPerformed By: #### [id number] #### [facility] [address] [place] [address] Dr. Peg ShelbyNote:CommentNoOhioHealth Berger Hospital on above:Result Comment: The Pap smear is a screening test designed to aid in the detection of premalignant and malignant conditions of the uterine cervix. It is not a diagnostic procedure and should not be used as the sole means of detecting cervical cancer. Both false-positive and false-negative reports do occur. . Performed at: WBPerformed By: #### [id number] #### [place] [address] Dr. Peg ShelbyPerformed by:CommentNoOhioHealth Berger Hospital on above: Result Comment: Janey Gonzalez, Electrical [employer] (ASCP) Performed at: WBPerformed By: #### [id number] #### [place] [address] Dr. Peg ShelbySpecimeperez adequacy:CommentSamaritan North Health Center on above:Result Comment: Satisfactory for evaluation. Endocervical and/or squamous metaplastic cells (endocervical component) are present. Performed at: WBPerformed By: #### [id number] #### [facility] [address] [place] [address] Dr. Peg ShelbyVAGINITIS/VAGINOSIS DNA PROBEon [id number] speciesNegative NormalNegativeCincinnati VA Medical Center on above:Performed By: #### VAGINT #### [place] [address] Dr. Peg Eliaslllydia vaginalisPositiveAbnormalNegativeThe [facility] YoungstownComaspirus iron river hospital on above:Performed By: #### VAGINT #### [facility] [address] [address] [address] Peg Rosahomonas vaginalisNegativeNormalNegativeOhiohealth Riverside Methodist Hospital Comment on above:Performed By: #### VAGINT #### [facility] [address] [place], [place] [address] Dr. Peg Serna SINGLE QUAD RT UPPERon [id number] SINGLE QUAD RT UPPEREXAM: Ultrasound of the right upper quadrant HISTORY: [...] Electronically authenticated by: MONTRELL WU Date: 2021-10-16 07:39[facility]leness HospitalLIPID PROFILEon [id number]-HDL RATIO NORMSEE BELOWOhioHealth O'Bleness HospitalComment on above:Result Comment: 3.3 - 4.4 LOW RISK 4.4 - 7.1 AVERAGE RISK 7.1 - 11.0 MODERATE RISK >11.0 HIGH RISKPerformed By: #### LIPID, CMP #### [facility] [address] [address] [address] Peg ShelbyCholesterol [Mass/Vol]235 mg/dLCritically high<=200The [facility] YoungstownComment on above:Performed By: #### LIPID, CMP #### [facility] [address] [place], [place] [address] Dr. ePg ShelbyCholesterol in HDL [Mass/Vol]42 mg/yNPaalgc70-50Ynt [facility] YoungstownComment on above:Performed By: #### LIPID, CMP #### [facility] [address] [place] [address] Dr. Peg ShelbyCholesterol in LDL [Mass/Vol]139.8 mg/dLOhioHealth O'Bleness HospitalComaspirus iron river hospital on above:Performed By: #### LIPID, CMP #### [facility] [address] [place] [address] Dr. Peg Brookeesteran.total/Cholesterol in HDL [Mass ratio]5.6 {ratio} NormalThe [facility] YoungstownComaspirus iron river hospital on above:Performed By: #### LIPID, CMP #### [facility] [address] [place] [address] Dr. Peg Munson NORMAL> or = 60 mg/dl - LOW CARDIOVASCULAR RISK <40 mg/dl - HIGH CARDIOVASCULAR RISKOhioHealth O'Bleness HospitalComaspirus [facility] river hospital on above:Performed By: #### LIPID, CMP #### [facility] [address] [place] [address] Dr. Peg Rivera CALC NORMALSEE BELOWOhioHealth O'Bleness HospitalComment on above:Result Comment: <100 mg/dl OPTIMAL 100 - 129 mg/dl NEAR OR ABOVE OPTIMAL 130 - 159 mg/dl BORDERLINE HIGH 160 - 189 mg/dl HIGH >190 mg/dl VERY HIGH Performed By: #### LIPID, CMP #### [facility] [address] [place] [address] Dr. Peg ShelbyTriglyceride [Mass/Vol]266 mg/dLCritically high<=150The [facility] on above:Performed By: #### LIPID, CMP #### [facility] [address] [place] [address] Dr. Peg ShelbyVLDL CALC53.2 mg/dLNoAshtabula County Medical CenterComaspirus iron river hospital on above: Performed By: #### LIPID, CMP #### [facility] [address] [place] [address] Dr. Peg Herrera 14(COMP METB)on [id number] [Mass/Vol]3.9 g/dLNormal 3.4-5.0[facility] on above:Performed By: #### LIPID, CMP #### [facility] [address] [address] [address] Peg ShelbyAlbumin/Globulin [Mass ratio]1.1 {ratio}NormalThe [facility] YoungstownComment on above:Performed By: #### LIPID, CMP #### [facility] [address] [address] [address] Peg VickP [Catalytic activity/Vol]90 U/LTbiucp73-004Uht [facility] YoungstownComment on above:Performed By: #### LIPID, CMP #### [facility] [address] [address] [address] Peg VickT [Catalytic activity/Vol]131 U/LCritically wpae16-44Acr [facility]stownComment on above:Performed By: #### LIPID, CMP #### [facility] [address] [address] [address] Peg Howardon gap [Moles/Vol]10.7 mmol/LNormalThe [facility] Comment on above:Performed By: #### LIPID, CMP #### [facility] [address] [address] [address] Peg ShelbyAST [Catalytic activity/Vol]78 U/LCritically todv43-41Yrj [facility] YoungstownComment on above:Performed By: #### LIPID, CMP #### [facility] [address] [address] [address] Peg ShelbyBilirubin [Mass/Vol]0.5 mg/dLNormal0.2-1.0The [facility] Comment on above:Performed By: #### LIPID, CMP #### [facility] [address] [address] [address] Peg ShelbyCalcium [Mass/Vol]8.6 mg/dLNormal8.5-10.1The [facility] Comment on above:Performed By: #### LIPID, CMP #### [facility] [address] [address] [address] Peg ShelbyChloride [Moles/Vol]104 mmol/ZStysog45-212Toh [facility] Comment on above:Performed By: #### LIPID, CMP #### [facility] [address] [address] [address] Peg ShelbyCO2 [Moles/Vol]29.5 mmol/UOuabbr42.0-32.0The [facility] Comment on above:Performed By: #### LIPID, CMP #### [facility] [address] [address] [address] Peg ShelbyCreatinine [Mass/Vol]0.83 mg/dLNormal0.55-1.02The [facility] YoungstownComment on above:Performed By: #### LIPID, CMP #### [facility] [address] [address] [address] Peg BentleyGFR-AF RWANDAN>60Normal>=60The [facility] YoungstownComment on above:Performed By: #### LIPID, CMP #### [facility] [address] [address] [address] Peg BentleyGFR-NON AF RWANDAN>60Normal>=60The [facility] YoungstownComment on above:Performed By: #### LIPID, CMP #### [facility] [address] [address] [address] Peg ShelbyGlobulin (S) [Mass/Vol]3.4 g/dLNormalThe [facility] YoungstownComment on above:Performed By: #### LIPID, CMP #### [facility] [address] [address] [address] Peg ShelbyGlucose [Mass/Vol]108 mg/dLCritically lxxu03-956Uzc [facility] YoungstownComment on above:Performed By: #### LIPID, CMP #### [facility] [address] [address] [address] Peg ShelbyPotassium [Moles/Vol]4.2 mmol/LNormal3.5-5.1The [facility] Comment on above:Performed By: #### LIPID, CMP #### [facility] [address] [address] [address] Peg ShelbyProtein [Mass/Vol]7.3 g/dLNormal6.4-8.2The [facility] Comment on above:Performed By: #### LIPID, CMP #### [facility] [address] [address] [address] Peg ShelbySodium [Moles/Vol]140 mmol/MBglgst001-352XryOhiohealth Riverside Methodist Hospital Comment on above:Performed By: #### LIPID, CMP #### [facility] [address] [place] [address] [address] Peg Warren nitrogen [Mass/Vol]14.0 mg/dLNormal7.0-18.0The [facility] YoungstownComment on above:Performed By: #### LIPID, CMP #### [facility] [address] [address] [address] Peg ShelbyUrea nitrogen/Creatinine [Mass ratio]16.9 mg/mgOhioHealth O'Bleness HospitalComment on above:Performed By: #### LIPID, CMP #### [facility] [address] [place] [address] Dr. Peg MeyerID PROFILEon [id number]-HDL RATIO NORMSMercy Health Lorain HospitalComment on above:Result Comment: 3.3 - 4.4 LOW RISK 4.4 - 7.1 AVERAGE RISK 7.1 - 11.0 MODERATE RISK >11.0 HIGH RISKPerformed By: #### CMP, LIPID #### [facility] [address] [place] [address] Dr. Peg Brookeesterol [Mass/Vol]245 mg/dLCritically high<=200The [facility] YoungstownComment on above:Performed By: #### CMP, LIPID #### [facility] [address] [address] [address] Peg Brookeesterol in HDL [Mass/Vol]42 mg/dLOhioHealth O'Bleness Hospital Comment on above:Performed By: #### CMP, LIPID #### [facility] [address] [place] [address] Dr. Peg Brookeesterol in LDL [Mass/Vol]144.8 mg/dLOhioHealth O'Bleness HospitalComment on above:Performed By: #### CMP, LIPID #### [facility] [address] [place] [address] Dr. Yilan ChangCholesterol.total/Cholesterol in HDL [Mass ratio]5.8 {ratio} NormalThe Lancaster Municipal Hospitalment on above:Performed By: #### CMP, LIPID #### [facility] [address] [place] [address] Dr. Peg Munson NORMAL> or = 60 mg/dl - LOW CARDIOVASCULAR RISK <40 mg/dl - HIGH CARDIOVASCULAR RISKOhioHealth O'Bleness HospitalComment on above:Performed By: #### CMP, LIPID #### [facility] [address] [place] [address] Dr. Peg ShelbyLDL CALC NORMALSEE BELOWOhioHealth O'Bleness HospitalComment on above:Result Comment: <100 mg/dl OPTIMAL 100 - 129 mg/dl NEAR OR ABOVE OPTIMAL 130 - 159 mg/dl BORDERLINE HIGH 160 - 189 mg/dl HIGH >190 mg/dl VERY HIGH Performed By: #### CMP, LIPID #### [facility] [address] [place] [address] Dr. Pge ShelbyTriglyceride [Mass/Vol]291 mg/dLCritically high<=150The [facility]Com[facility] on above:Performed By: #### CMP, LIPID #### [facility] [address] [place] [address] Dr. Peg GillilandLDL CALC58.2 mg/dLNoOhioHealth Berger Hospital on above: Performed By: #### CMP, LIPID #### [facility] [address] [place] [address] Dr. Peg ShelbyPROF 14(COMP METB)on 17-24-7869Swxkqxy [Mass/Vol]4.0 g/dLNormal 3.5-5.0[facility] HospitalComment on above:Performed By: #### CMP, LIPID #### [facility] [address] [place] [address] Dr. Peg ShelbyAlbumin/Globulin [Mass ratio]1.1 {ratio}NormalThe [facility]Comasp[facility] on above:Performed By: #### CMP, LIPID #### [facility] [address] [place] [address] Dr. Yilan ChangALP [Catalytic activity/Vol]88 U/LRlajyl66-508Prh [facility] on above:Performed By: #### CMP, LIPID #### [facility] [address] [address] [address] Peg VickT [Catalytic activity/Vol]112 U/LCritically high9-52The [facility]Comment on above:Performed By: #### CMP, LIPID #### [facility] [address] [address] [address] Peg Howardon gap [Moles/Vol]12.5 mmol/LNormalThe [facility] Comment on above:Performed By: #### CMP, LIPID #### [facility] [address] [place] [address] Dr. Peg ShelbyAST [Catalytic activity/Vol]52 U/LCritically ostv92-16Loo [facility] on above:Performed By: #### CMP, LIPID #### [facility] [address] [place] [address] Dr. Peg ShelbyBilirubin [Mass/Vol]0.5 mg/dLNormal0.2-1.3TMercy Health [facility] Comment on above:Performed By: #### CMP, LIPID #### [facility] [address] [place] [address] Dr. Peg ShelbyCalcium [Mass/Vol]8.9 mg/dLNormal8.4-10.2[facility] Comment on above:Performed By: #### CMP, LIPID #### [facility] [address] [place] [address] Dr. Peg ShelbyChloride [Moles/Vol]104 mmol/RXmjfqw94-818Teh [facility] Comment on above:Performed By: #### CMP, LIPID #### [facility] [address] [place] [address] Dr. Peg ShelbyCO2 [Moles/Vol]30.5 mmol/LCritically high22.0-30.0The [facility] on above:Performed By: #### CMP, LIPID #### [facility] [address] [place] [address] Dr. Peg Pereiraatinine [Mass/Vol]0.82 mg/dLNormal0.52-1.04The [facility] on above:Performed By: #### CMP, LIPID #### [facility] [address] [place] [address] Dr. Peg BentleyGFR-AF RWANDAN>60Normal>=60The [facility] on above:Performed By: #### CMP, LIPID #### [facility] [address] [address] [address] Peg BentleyGFR-NON AF RWANDAN>60Normal>=60The [facility] above:Performed By: #### CMP, LIPID #### [facility] [address] [place] [address] Dr. Peg ShelbyGlobulin (S) [Mass/Vol]3.7 g/dLNormalThe [facility]Comment on above:Performed By: #### CMP, LIPID #### [facility] [address] [place] [address] Dr. Peg ShelbyGlucose [Mass/Vol]118 mg/dLCritically imao84-803Hyw [facility] Hospitalment on above:Performed By: #### CMP, LIPID #### [facility] [address] [place] [address] Dr. Peg ShelbyPotassium [Moles/Vol]4.0 mmol/LNormal3.4-5.0The [facility] Comment on above:Performed By: #### CMP, LIPID #### [facility] [address] [place] [address] Dr. Peg ShelbyProtein [Mass/Vol]7.7 g/dLNormal6.1-8.2[facility] Comment on above:Performed By: #### CMP, LIPID #### [facility] [address] [place] [address] Dr. Peg ShelbySodium [Moles/Vol]143 mmol/UNwbjbs797-661Aym [facility] Comment on above:Performed By: #### CMP, LIPID #### [facility] [address] [place] [address] Dr. Peg Warren nitrogen [Mass/Vol]13.0 mg/dLNormal7.0-17.0The [facility] on above:Performed By: #### CMP, LIPID #### [facility] [address] [address] [address] Peg Warren nitrogen/Creatinine [Mass ratio]15.9 mg/mgNormalThe [facility]Comasp[facility] hospital on above:Performed By: #### CMP, LIPID #### [facility] [address] [address] [address] Peg Shelby2019 Novel Coronavirus (CoVID-19), LUCINDA LCon 20-73-7211RKSX-CoV-2, LUCINDA (COVID-19) LCDetectedAbnormalNot [facility] on above: Order Comment: [id number] Results Called To Imelda at Dr. Alba's By JOSUE And Read Back For Confirmation On 12/23/2019 11:38:22EDT.Result Comment: This test was developed and its performance characteristics determined by [employer]. This test has not been FDA cleared [...] detected) result in this assay. Performed At: [facility] [address] [place], [place] [id number] Kenna Bach MD Ph:[phone] By: #### [id number] #### [facility] (DEFAULT) [address], [place] [address]Xaihfp Summaryon 42-84-5092Jfforo SummaryCODING DATE: 12/22/2019 [facility] STATUS: Home PAYOR: Commercial Insurance ADMIT [...] By: Sheryl Lovett Date Saved: 12/22/2019 01:57 [facility] CampusConsent Formson 12-22-2019 Consent [id number]#1.00[facility] Vital Signs Date TimeVital SignValuePerforming HzelngysbRqomplxk79-92-9280 08:27-0500Body .02 cmMaribeth Galvez APRN Work Phone: [facility]11-05-2025 08:27-0500 Body mass index (BMI) [Ratio]47.2 kg/q6UjakjgevMaribeth Galvez REFERENCE DATA EXPERT Work Phone: [phone]11-05-2025 08:27-0500 Body .1 kgMaribeth Galvez REFERENCE DATA EXPERT Work Phone: [facility]11-05-2025 08:27-0500 Diastolic blood dtpkbegk278 mm[Hg]Maribeth Galvez REFERENCE DATA EXPERT Work Phone: [phone]11-05-2025 08:27-0500 Heart vljs160 /minMaribeth Galvez APRN Work Phone: [facility]11-05-2025 08:27-0500 Respiratory rate14 /minMaribeth Taylorzoyazaida REFERENCE DATA EXPERT Work Phone: [phone] [place], [place] 8123511-05-2025 08:27-0500 SaO2% (BldA) [Mass fraction]96 %Maribeth Willzaida REFERENCE DATA EXPERT Work Phone: [phone] [place], [place] 812[address]11-05-2025 08:27-0500 Systolic blood itiwgwog415 mm[Hg]Maribeth Castilloryan REFERENCE DATA EXPERT Work Phone: [phone] [place], [place] 812[address]10-08-2025 08:54-0400 Body mdwuls355.02 cmMaribeth Castillorosalbazoyazaida REFERENCE DATA EXPERT Work Phone: [phone] [place], [place] 812[address]10-08-2025 08:54-0400 Body mass index (BMI) [Ratio]47.9 kg/a4PjukdgeiMaribeth Castillorosalbazoyar REFERENCE DATA EXPERT Work Phone: [phone] [place], [place] 812[address]10-08-2025 08:54-0400 Body .7 [degF]Maribeth Castilloryan REFERENCE DATA EXPERT Work Phone: [phone] [place], [place] [address]12[address]10-08-2025 08:54-0400 Body pobtzh828.92 kgMaribeth Willzaida REFERENCE DATA EXPERT Work Phone: [phone] [place], [place] [address]12[address]10-08-2025 08:54-0400 Diastolic blood gdywgqrz67 mm[Hg]Maribeth Castilloryan REFERENCE DATA EXPERT Work Phone: [phone] [place], [place] [address]12[address]10-08-2025 08:54-0400 Heart bray955 /minMaribeth Castillorosalbazoyazaida REFERENCE DATA EXPERT Work Phone: [phone] [place], [place] [address]12[address]10-08-2025 08:54-0400 SaO2% (BldA) [Mass fraction]97 %Maribeth Castilloryan REFERENCE DATA EXPERT Work Phone: [phone] [place], [place] 812[address]10-08-2025 08:54-0400 Systolic blood yqwrjijw642 mm[Hg]Maribeth Leonor REFERENCE DATA EXPERT Work Phone: [phone] [place], [place] 8123505-07-2025 13:28-0400 Body dowkwc800 cmEdellie Alba MD Work Phone: [phone] [place], [place] 7144905-07-2025 13:28-0400Body mass index (BMI) [Ratio]48.71 kg/m7BkyefwEnrique Alba MD Work Phone: [phone] [place], [place] 7144905-07-2025 13:28-0400Body anmuml133.74 kgEnrique Alba MD Work Phone: [phone] [place], [place] 714[address]05-07-2025 13:28-0400Heart rate77 /min Enrique Alba MD Work Phone: [phone] [place], [place] 714[address]05-07-2025 13:28-4453PzS2% (BldA) [Mass fraction]97 %Enrique Alba MD Work Phone: 1(439)[address] [place], [place] 714[address]04-07-2025 15:24-0400Body yvctnr077 cm Enrique Alba MD Work Phone: [phone] [place], [place] 714[address]04-07-2025 15:24-0400Body mass index (BMI) [Ratio]48.71 kg/m9LlivnoEnrique Alba MD Work Phone: 1(677)[address] [place], [place] 714[address]04-07-2025 15:24-0400Body ckehxq529.74 kgEnrique Alba MD Work Phone: [phone] [place], [place] 714[address]04-07-2025 15:24-0400Diastolic blood vowzxuah93 mm[Hg]Enrique Alba MD Work Phone: [phone] [place], [place] 714[address]04-07-2025 15:24-0400Heart rate90 /min Enrique Alba MD Work Phone: [phone] [place], [place] 714[address]04-07-2025 15:24-1394EoJ7% (BldA) [Mass fraction]97 %Enrique Alba MD Work Phone: [phone])[address] [place], [place] 714[address]04-07-2025 15:24-0400Systolic blood mm[Hg]Enrique Alba MD Work Phone: [phone] [place], [place] 7144902-18-2025 18:15-0500Body temperature 97.2 [degF]Luis Eduardo Levine SENIOR BUSINESS BROKER Work Phone: [facility]wnAzrugjymyj90-81-0720 18:15-0500Diastolic blood lmiipiin61 mm[Hg]Luis Eduardo Levine SENIOR BUSINESS BROKER Work Phone: [facility] LawnCtgnozrfdg76-27-0676 18:15-0500Heart rate88 /min Luis Eduardo Levine SENIOR BUSINESS BROKER Work Phone: [facility] LawnEvpphqqfqj56-94-5154 18:15-8562QoK8% (BldA) [Mass fraction]98 %Luis Eduardo Levine SENIOR BUSINESS BROKER Work Phone: [facility] LawnSobxflkdyd48-38-3920 18:15-0500Systolic blood pelakwsu496 mm[Hg]Luis Eduardo Levine SENIOR BUSINESS BROKER Work Phone: [facility] LawnXuxtlwvakc46-66-7170 10:20-0500Body mass index (BMI) [Ratio]48.86 kg/x1UllepeiBeatriz Chavis SENIOR BUSINESS BROKER Work Phone: [facility] LawnVjnpphcdow33-14-9903 10:20-0500Body temperature 97.59 [degF]Beatriz Sweeneyion SENIOR BUSINESS BROKER Work Phone: [facility] LawnZoorarwltq53-13-8150 10:20-0500Body nukbuq728.1 kgBeatriz Sweeneyion SENIOR BUSINESS BROKER Work Phone: [facility] LawnZepfarvslx20-13-2271 10:20-0500Diastolic blood mm[Hg]Beatriz Sweeneyion SENIOR BUSINESS BROKER Work Phone: [facility] LawnByaeqzyyoc32-02-1031 10:20-0500Heart etha389 /min Beatriz Sweeneyion SENIOR BUSINESS BROKER Work Phone: [facility] LawnJjggismwkm49-93-8242 10:20-6042PbZ5% (BldA) [Mass fraction]97 %Beatriz Sweeneyion SENIOR BUSINESS BROKER Work Phone: [facility] LawnTtosjgspct96-18-2239 10:20-0500Systolic blood mhjtqowc721 mm[Hg]Beatrizashley Sweeneyion SENIOR BUSINESS BROKER Work Phone: [facility] LawnAusievbpvr48-52-6564 13:48-0500Body skbmla794 cm Enrique Alba MD Work Phone: [facility] LawnZxpcrgmdao11-31-6492 13:48-0500Body mass index (BMI) [Ratio]36.31 kg/f6DopabeEnrique Alba MD Work Phone: [facility] LawnAbtwkapypi72-84-5393 13:48-0500Body skqqzy84.99 kgEnrique Alba MD Work Phone: [facility] LawnSebvmrwnfa39-85-9279 13:48-0500Heart rate93 /min Enrique Alba MD Work Phone: [facility] LawnQhgenxxndu34-33-4616 13:48-3228XgX2% (BldA) [Mass fraction]95 %Enrique Alba MD Work Phone: [facility] LawnUfbzmmwvli73-68-4596 11:40-0500Body mass index (BMI) [Ratio]36.34 kg/m2Janey Savage PA Work Phone: [facility] LawnEokhvqigmg47-06-9574 11:40-0500Body rwzilq52.04 kgAmy Janette PA Work Phone: [facility] LawnJlmiomuoek32-97-4401 11:40-0500Diastolic blood hqoxmlpr44 mm[Hg]Janey Savage PA Work Phone: [facility] LawnKxnzeckzlj50-39-7699 11:40-0500Systolic blood mm[Hg]Janey RILEY Work Phone: [facility] LawnOyuvecxbwj19-96-5858 14:26-0500Body cefbwm091 cm Enrique Alba MD Work Phone: [facility] LawnCtysqunvft01-18-9927 14:26-0500Body mass index (BMI) [Ratio]49.6 kg/s6UfreqaEnrique Alba MD Work Phone: [facility] LawnOeecpwlstb72-08-7200 14:26-0500Body .01 kgEnrique Alba MD Work Phone: [facility] LawnOqdghmyplq02-88-2622 15:35-0400Body cm Enrique Alba MD Work Phone: [phone] LawnSuzlatochm31-26-1196 15:35-0400Body mass index (BMI) [Ratio]49.6 kg/z8ArduwzEnrique Alba MD Work Phone: [phone] LawnSfsmevumjj07-69-0589 15:35-0400Body .01 kgEnrique Alba MD Work Phone: [phone])[facility] LawnEccqwtmvif10-47-1309 15:35-0400Diastolic blood naouvfix23 mm[Hg]Enrique Alba MD Work Phone: [phone] LawnFijkebmpsj05-62-2001 15:35-0400Heart rate97 /min Enrique Alba MD Work Phone: [phone] LawnFepmdkxmpu85-10-2185 15:35-9047ZaY9% (BldA) [Mass fraction]99 %Enrique Alba MD Work Phone: [phone] LawnDxkhbhsyzi65-15-3197 15:35-0400Systolic blood ydeocths730 mm[Hg]Enrique Alba MD Work Phone: [phone] LawnNpgrekglnh89-95-4469 16:24-0400Body gmlahg519 cm Enrique Alba MD Work Phone: [phone] LawnVawozzuchb74-02-4787 16:24-0400Body mass index (BMI) [Ratio]46.06 kg/p4SpdkxmEnrique Alba MD Work Phone: [phone] LawnDhtkzdcblf26-79-7878 16:24-0400Body ezprio248.94 kgEnrique Alba MD Work Phone: [phone] LawnFcbnzsibru47-89-2439 14:03-0400Body obwhsp165 [address] Work Phone: c[facility] CenterLimrwc50-49-1426 14:03-0400Body lfedjy492.[address] Work Phone: c[facility] CenterMlfdas62-75-4493 13:20-0400Body hvgkni415 cm Radha Hernandez MD Work Phone: [facility]07-05-2023 13:20-0400Body jbusxq003.2 kgJulianmackenziehali Hernandez MD Work Phone: [facility]04-06-2023 14:50-0400Diastolic blood auapzhsl81 mm[Hg]Mariajose Stallworth MD Work Phone: c[facility] CenterQylrax89-90-7199 14:50-0400Heart ctqx441 /minMariajose Stallworth MD Work Phone: c[facility] hospitaland Hlaman27-24-7022 14:50-0400Systolic blood ibggwqyv109 mm[Hg]Mariajose Stallworth MD Work Phone: c[facility] CenterWcfawf03-44-2593 14:00-0500Body xaonio729.02 Demetra Fuller Other [employer] Other 01-10-2023 14:00-0500Body mass index (BMI) [Ratio] 46.05 kg/x3Sfyvhdgrdeanne Fuller Other [employer] Other 01-10-2023 14:00-0500Body miuver663.94 kgLadeanne Fuller Other [employer] Other 01-10-2023 14:00-0500Diastolic blood rheowymh710 mm[Hg]Ernie Fuller Other [employer] Other 01-10-2023 14:00-0500Systolic blood jinkfsoo249 mm[Hg] Ernie Fuller Other [employer] Other 10-05-2022 10:45-0400Body .02 Demetra Fuller Other [employer] Other 10-05-2022 10:45-0400Body mass index (BMI) [Ratio] 47.29 kg/n4Kucbnjdwdeanne Fuller Other [employer] Other 10-05-2022 10:45-0400Body .11 kgLawrnadine Fuller Other [facility] [employer] Other Encounters Encounter DateEncounter TypeCare ProviderFacilityStart: 03-02-2025 End: 91-47-1174uekbfbthurEkuqfsfk Rohrbacher APRN Work Phone: [facility] Hospitalt[facility]: 03-02-2025 End: 38-06-3373Wdtiidu encounter procedurePatrickedwige Galvez APRN [facility] Work Phone: Start: 46-29-0159hzpyaidehoRKVJBUMVBTS [facility] Hospitaltart: 02-02-2025 End: 42-95-1252yblktjywtbMqrwtnzaEan Galvez APRN Work Phone: [facility] Work Phone: Start: 02-02-2025 End: 69-26-3250Ryxpfam encounter procedurePatrickjoellenjohan Castillorosalbazoyazaida FISHER [facility] Work Phone: Start: 11-09-2024 End: 65-45-9038Wlfrctwmj encounterApril Rachel MCCULLOUGH CI FM 100Comment on above: Care CoordinationStart: 11-04-2024 End: 21-91-8861Ycakjsgzi Result Jose Alba MD Work Phone: [facility] External Department UnsolicitedStart: 11-04-2024 End: 27-82-6606Ymcsltqjw Result EncounterEdellie Alba MD Work Phone: [facility] External Department UnsolicitedStart: 10-30-2024 End: 03-39-0105Ddzsvjltb Result EncounterGeneric External Data ProviderNOMS External Department UnsolicitedStart: 10-30-2024 End: 54-09-1136Hpakrgjdh Result EncounterGeneric External Data ProviderNOMS External Department UnsolicitedStart: 10-27-2024 End: 35-89-3033Xxcxglxdw Result Jose Alba MD Work Phone: NORE External Department UnsolicitedStart: 10-27-2024 End: 27-57-6382Lkyaedwca Result EncounterEdellie Alba MD Work Phone: NOJS External Department UnsolicitedStart: 09-01-2024 End: 75-47-0230Bhomsr flowsheetEnrique Alba MD Work Phone: [facility] CI FM 100Start: 09-01-2024 End: 75-28-7989Nmhkyb Ian Alba MD Work Phone: [facility] CI FM 100Start: 09-01-2024 End: 43-68-1540Qmnfec outpatient visit 25 minutesEnrique Alba MD Work Phone: [facility] CI FM 100Comment on above:Palpitations (Primary Dx); TachycardiaStart: 09-01-2024 End: 71-43-6133vfynnzxfluFDSCWP J HEMEYERNot AvailableStart: 08-02-2024 End: 01-31-8362Kipwpf outpatient visit 25 minutesEnrique Alba MD Work Phone: [facility] CI FM 100Comment on above:Restless leg syndrome (Primary Dx); Other chronic pain; Insomnia due to other mental disorder; Recurrent major depressive disorder, in partial remission (HCC) (CMS/HCC); Primary hypertension (CMS/HCC); Mixed dyslipidemia (CMS/HCC); Pre-diabetes; Morbid obesity (CMS/HCC); Adult BMI 45.0-49.9 kg/sq m (CMS/HCC)Start: 08-02-2024 End: 81-46-3875fgjwnbbdmsRUWHJH J HEMEYERNot AvailableStart: 08-02-2024 End: 48-65-0600Jcokhq flowsNavarro Alba MD Work Phone: [facility] CI FM 100Start: 08-02-2024 End: 58-49-5509Jpnxah Ian Alba MD Work Phone: [facility] CI FM 100Start: 06-16-2024 End: 81-95-2566Weztdkohj encounterLinmoustapha Perez Julián SENIOR BUSINESS BROKER Work Phone: N[facility] HSM FMStart: 06-15-2024 End: 21-49-3173Djdviv outpatient visit 25 minutesLinmoustapha Levine SENIOR BUSINESS BROKER Work Phone: [facility] SWS UCComment on above:Left foot pain (Primary Dx); Strain of left foot, initial encounterStart: 06-15-2024 End: 63-23-3097mnsmwxkafgFIADTTV N AUSTINNot AvailableStart: 05-09-2024 End: 33-57-6571RsxrvcGxuoeo J Hemeyer MD Work Phone: noMS CI FM 100Comment on above:Pre-diabetesStart: 04-17-2024 End: 48-98-7195tejrsijcoeXWADWKA L DIDIONNot AvailableStart: 04-17-2024 End: 85-43-4323Yqheet outpatient visit 25 minutesJesshong Chavis SENIOR BUSINESS BROKER Work Phone: noms SWS UCComment on above:Acute pain of left knee (Primary Dx)Start: 04-05-2024 End: 39-45-7864Sngjexrick Alba MD Work Phone: [facility] CI FM 100Start: 04-05-2024 End: 92-87-8762Hbqdeb Ian Alba MD Work Phone: [facility] CI FM 100Start: 04-05-2024 End: 63-50-2679dpnnuszoieCYKKQI J HEMEYERNot AvailableStart: 04-05-2024 End: 41-75-1323Uodxcc outpatient visit 15 minutesEnrique Alba MD Work Phone: [facility] CI FM 100Comment on above:Acute non-recurrent pansinusitis (Primary Dx)Start: 03-31-2024 End: 12-35-0295Yvoise Fco Alba MD Work Phone: [facility] CI FM 100Comment on above:Pre-diabetesStart: 03-29-2024 End: 12-98-9441Txuqrc flowsSuni RILEY Work Phone: noms BCP OBStart: 03-29-2024 End: 45-83-1171Ibnapt flowsheetJaney RILEY Work Phone: noms BCP OBStart: 03-29-2024 End: 64-02-2962Tvgotfvch Result EncounterGeneric External Data ProviderNOMS External Department UnsolicitedStart: 03-29-2024 End: 04-52-6268Arzzjdj encounter procedureAmy Janette PA Work Phone: [facility] Work Phone: Start: 03-29-2024 End: 80-70-0875Lefqzlvu preventive med est patient 40-64yrsAmy Janette RILEY Work Phone: [facility] OBComment on above:Well woman exam with routine gynecological exam; Yeast infection of the skinStart: 03-29-2024 End: 70-54-3749incywuncqvNWV RAMEYNot AvailableStart: 03-13-2024 End: 92-63-0523PhrgbwZwpgeoPiyush Alba MD Work Phone: [facility] CI FM 100Comment on above:Mixed dyslipidemia (CMS/HCC)Start: 03-12-2024 End: 54-94-8892BiwpviTxxyiyPiyush Alba MD Work Phone: [facility] CI FM 100Comment on above:Mixed dyslipidemia (CMS/HCC)Start: 03-11-2024 End: 53-84-6053Wsisae outpatient visit 25 minutesEdellie Alba MD Work Phone: [facility] CI FM 100Comment on above:Pre-diabetes (Primary Dx); Restless leg syndrome; Mixed dyslipidemia (CMS/HCC)Start: 03-11-2024 End: 72-13-8514nqfhzpftkqKJYNLE J HEMEYERNot AvailableStart: 03-11-2024 End: 07-47-5760Rqqyjn flowsNavarro Alba MD Work Phone: [facility] CI FM 100Start: 03-11-2024 End: 58-70-4690Azgjhc flowsNavarro Alba MD Work Phone: [facility] CI FM 100Start: 03-05-2024 End: 71-24-3440Aakypshbw Result EncounterEdellie Alba MD Work Phone: NOBH External Department UnsolicitedStart: 03-05-2024 End: 46-73-8094Humexqcdi Result EncounterEdellie Alba MD Work Phone: noms External Department UnsolicitedStart: 02-25-2024 End: 13-41-6148Wcihcvm encounter statusEdellie Alba MD Work Phone: [facility] Work Phone: Start: 02-25-2024 End: 13-72-6615Gjmwnsph preventive med est patient 40-64yrsEdellie Alba MD Work Phone: NOAV CI FM 100Comment on above:Encounter for wellness examination in adult (Primary Dx); Advance directive discussed with patient; Morbid obesity (CMS/HCC); Adult BMI 45.0-49.9 kg/sq m (CMS/HCC); Glucose intolerance (impaired glucose tolerance); Mixed hyperlipidemia (CMS/HCC); Primary hypertension (CMS/HCC); Menopausal and female climacteric states; Osteoporosis screening; Encounter for follow-up examination after completed treatment for conditions other than malignant neoplasm; Screening mammogram for breast cancerStart: 02-25-2024 End: 70-95-0146leqgpjvqmpMVBTHU J HEMEYERNot AvailableStart: 02-25-2024 End: 58-19-4783Fiomcv flowsNavarro Alba MD Work Phone: [facility] CI FM 100Start: 02-25-2024 End: 71-63-6200Npbaoi Ian Alba MD Work Phone: NOXC CI FM 100Start: 12-25-2023 End: 94-13-2232Hdknyiyee encounterEdellie Alba MD Work Phone: [facility] CI FM 100Start: 12-16-2023 End: 42-68-2113nkyyomriptZLUISQ J HEMEYERNot AvailableStart: 12-16-2023 End: 86-58-6409Cuyups outpatient visit 15 minutesEdellie Alba MD Work Phone: [facility] CI FM 100Comment on above:Insomnia due to other mental disorder; Recurrent major depressive disorder, in partial remission (HCC) (CMS/HCC); Morbid obesity (CMS/HCC); Adult BMI 45.0-49.9 kg/sq m (CMS/HCC)Start: 12-05-2022 End: 10-24-0007svahyfxeitDdvfxtqgzNoemí Gee RD Work Phone: Nutrition TherapyComment on above:Fatty liverStart: 12-05-2022 End: 83-00-9853Bfqxcijarkgn consultation with Teri Gee RD Work Phone: MIGUEL MATA FHCStart: 10-30-2022 End: 89-16-5254amltwwybpvMYMURBBertram HERNANDEZFacility:[facility] Start: 10-30-2022 End: 11-06-1754Rfhyivg encounter procedureRadha Hernandez MD Work Phone: GastroenterologyComment on above:Fatty liver (Primary Dx); Class 3 severe obesity due to excess calories in adult, unspecified BMI, unspecified whether serious comorbidity present (HCC)Start: 08-01-2022 End: 32-96-3297lftbbdbsfuGJFKQO S PERHALAFacility:[facility] Start: 08-01-2022 End: 30-77-5313Ubxyjls encounter Giorgi Stallworth MD Work Phone: RheumatologyComment on above:Erosive osteoarthritis of both hands (Primary Dx); Primary osteoarthritis involving multiple joints; NSAID long-term useStart: 06-17-2022 End: 40-16-2982etqrgmosvoRyscnh Cundiff [facility] hospital [employer] Other Start: 12-46-0490Skxkmeqmf Neptaliwilli Meryl Referral CoordinatorStart: 05-07-2022 End: 38-66-8077wkxunprfzlFtbxqmgv McCormack Other [facility] [employer] Other Start: 18-95-2655Zttubx outpatient visit 25 minutes Ernie Monson GastroenterologyStart: 02-20-2022 End: 86-75-3618gnxlqbvytxIxmjip J HemeyerFacility:[facility]: 01-30-2022 End: 75-42-2538jnoxycztvzStmwqwun McCormack Other [facility] [employer] Other Start: 03-81-7187Zoqloz outpatient new 45 minutes Ernie Monson GastroenterologyStart: 11-05-2021 End: 39-80-1454znqwczwatoVZ OSCAR ANAASIKFacility:L6Xhjxj: 11-01-2021 End: 82-81-5208lrzsfiqwamUJ EDWARD HEMEYERFacility:R0Ghbqg: 10-16-2021 End: 87-47-8914kwwxgkjohzKI EDWARD HEMEYERFacility:A3Cbkmk: 10-11-2021 End: 29-94-0223losywfdqhwBR EDWARD HEMEYERFacility:T0Uoxfo: 03-20-2021 End: 97-90-1608ofincgdxatYX EDWARD HEMEYERFacility:H1 Procedures DateProcedureProcedure DetailPerforming ClinicianStart: 65-92-1488KC KIMBERLYN PERF SPECT REST Magalys Alba MD Work Phone: Start: 33-46-2638THA HEMOGLOBIN S0AMxshjvq External Data ProviderStart: 77-09-7970BYP CBC WITH AUTO DIFFEnrique Alba MD Work Phone: Start: 13-13-2930Ynrfqozmgr examination knee 3 views Beatriz Chavis [employer] Work Phone: Start: 62-10-0899VGW,APTIMA HPV,AGE GDLNJaney RILEY Work Phone: Start: 58-54-7189Bxtaguyjexi observation [Identifier] in Cervix by Cyto Loan Alba MD Work Phone: Start: 16-60-9326FH TOMOSYNTHESIS SCREENING BIEnrique Alba MD Work Phone: Start: 10-24-5609BV DEXA AXIAL SKELETONEdellie Alba MD Work Phone: Start: 38-33-9476RSE LIPID PROFILE (FASTING)Enrique Alba MD Work Phone: Start: 31-97-4787JHX CMP (CMP) (FOR REMOTE COUNTS INCLUDE 234 BEDS AT THE [facility] USE) Enrique Alba MD Work Phone: Start: 24-22-2724UdruinjdmizYbanpq Hemeyer MD Work Phone: Start: 74-58-1358Sftvlkvnali observation [Identifier] in Cervix by Cyto Davina RILEY Work Phone: Start: 81-97-8122Hkphepn of operative procedure on kneeStatus post bilateral knee replacementsEnrique Alba MD Work Phone: Start: 75-02-5838CcxapugkcdnGfgtlu Hemeyer MD Work Phone: Start: 67-21-1325MeryumodnqqPdappobxh [address] Work Phone: Plan of Treatment DateCare ActivityDetailAuthorStart: 67-82-3811Oqzjdjlkr for malignant neoplasm of cervixNOMS HealthcareStart: 38-35-7734Liufnjjpw for malignant neoplasm of colonNOMS HealthcareStart: 72-35-3238Ozpcstrfu for malignant neoplasm of cervix [facility] HealthcareStart: 04-04-2025 End: 66-07-9797Vtkjsit encounter procedureNOMS BCP OBStart: 54-02-5768Ppcaidlhi for malignant neoplasm of breastMammogramNOMS HealthcareStart: 91-98-8573BSDNK- 19 Vaccine ( season)COVID-19 Vaccine ( season)[facility] HealthcareStart: 90-11-6198Ojqpcxplv vaccinationInfluenza Vaccine (#1)[facility] HealthcareStart: 09-01-2024 End: 80-28-6651Cqrias monitor studyHolter monitor Imaging Routine Palpitations Tachycardia Expected: 09/01/2024 (Approximate), Expires: 09/01/2025[facility] Work Phone: Comment on above:Expected: 09/01/2024 (Approximate), Expires: 09/01/2025Start: 09-01-2024 End: 51-73-3433Twylnua encounter rbgyqvywa88/07/2025 1:45 PM EDT Office Visit [facility] [address] [place] [address] Enrique Alba MD [address] [place] [address] (Fax) ArrivedNOMS CI FM 100Comment on above: ArrivedStart: 08-02-2024 End: 00-64-8397Dwproue encounter upymlkrrk45/07/2025 3:30 PM EDT Office Visit [facility] [address] [place] [address] Enrique Alba MD [address] [place] [address] (Fax) Primary hypertension (CMS/HCC); Mixed dyslipidemia (CMS/HCC); Pre-diabetes; Glucose intolerance (impaired glucose tolerance); Recurrent major depressive disorder, in partial remission (HCC) (CMS/HCC); Insomnia due to other mental disorder; Morbid obesity (CMS/HCC); Adult BMI 45.0-49.9 kg/sq m (CMS/HCC)[facility] CI FM 100Comment on above:Primary hypertension (CMS/HCC); Mixed dyslipidemia (CMS/HCC); Pre-diabetes; Glucose intolerance (impaired glucose tolerance); Recurrent major depressive disorder, in partial remission (HCC) (CMS/HCC); Insomnia due to other mental disorder; Morbid obesity (CMS/HCC); Adult BMI 45.0-49.9 kg/sq m (CMS/HCC)Start: 08-02-2024 End: 09-48-7617KYH W Auto Differential panel - BloodCBC and differential Lab Routine Restless leg syndrome Expected: 08/02/2024 (Approximate), Expires: 08/02/2025[facility] Work Phone: Comment on above:Expected: 08/02/2024 (Approximate), Expires: 08/02/2025Start: 08-02-2024 End: 74-83-0650Rxcb and Iron binding capacity panel - Serum or PlasmaIron and TIBC Lab Routine Restless leg syndrome Expected: 08/02/2024 (Approximate), Expires: 08/02/2025[facility] HealthcareComment on above:Expected: 08/02/2024 (Approximate), Expires: 08/02/2025Start: 03-29-2024 End: 52-75-5505Woaxfwb encounter procedureNOMS BCP OBComment on above:Arrived Start: 33-01-2279Ajydadtib for malignant neoplasm of cervixNOUT HealthcareStart: 02-26-2024 End: 05-03-7347Avxjhmqqjkpul metabolic 2000 panel - Serum or PlasmaComprehensive metabolic panel Lab Routine Glucose intolerance (impaired glucose tolerance) Primary hypertension (CMS/HCC) Expected: 02/26/2024 (Approximate), Expires: 02/25/2025[facility] Work Phone: Comment on above:Expected: 02/26/2024 (Approximate), Expires: 02/25/2025Start: 02-26-2024 End: 61-47-9783URX Breast - bilateral screeningBilateral screening mammogram with tomosynthesis Imaging Routine Screening mammogram for breast cancer Expected: 02/26/2024 (Approximate), Expires: 04/27/2025[facility] HealthcareComment on above:Expected: 02/26/2024 (Approximate), Expires: 04/27/2025Start: 02-26-2024 End: 01-76-3506KQY Skeletal system Views for bone densityDEXA bone density Imaging Routine Menopausal and female climacteric states Osteoporosis screening Encounter for follow-up examination after completed treatment for conditions other than malignant neoplasm Expected: 02/26/2024 (Approximate), Expires: 02/25/2025N[facility]S HealthcareComment on above:Expected: 02/26/2024 (Approximate), Expires: 02/25/2025Start: 02-26-2024 End: 84-29-3043Mxrec 1996 panel - Serum or PlasmaLipid panel Lab Routine Mixed hyperlipidemia (CMS/HCC) Expected: 02/26/2024 (Approximate), Expires:02/25/2025 [facility] HealthcareComment on above:Expected: 02/26/2024 (Approximate), Expires: 02/25/2025Start: 02-25-2024 End: 72-31-0666Xhczzko encounter tnpytcide37/30/2024 3:30 PM EDT Office Visit [facility] [address] [id number] Enrique Alba MD [address] [address] Encounter for wellness examination in adult; Advance directive discussedwith patient; Morbid obesity (CMS/HCC); Adult BMI 45.0-49.9 kg/sq m (CMS/HCC)[facility] CI FM 100Comment on above:Encounter for wellness examination in adult; Advance directive discussed with patient; Morbid obesity (CMS/HCC); Adult BMI 45.0-49.9 kg/sq m (CMS/HCC)Start: 61-32-4514Ghgetoyez vaccination Influenza Vaccine (#1)[facility] HealthcareStart: 15-33-6410Porvktljp vaccination INFLUENZA (#1)[facility]: 97-58-9209Buzdvkoss for malignant neoplasm of breastMammogramNOMS HealthcareStart: 10-30-2022 End: 93-41-5853XSDSDF SCREEN WITH REFLEXCELIAC SCREEN WITH REFLEX Lab Routine Fatty liver Expected: 10/30/2022, Expires: 12/30/2022[facility] Work Phone: Comment on above:Expected: 10/30/2022, Expires: 12/30/2022Start: 10-30-2022 End: 12-14-1775Eahhsohwxcmyh metabolic 2000 panel - Serum or PlasmaCOMP METABOLIC PANEL Lab Routine Fatty liver Expected: 10/30/2022, Expires: 12/30/2022[facility] Work Phone: Comment on above:Expected: 10/30/2022, Expires: 12/30/2022Start: 10-30-2022 End: 85-48-1350FCXVSHNRU A ANTIBODY, IGGHEPATITIS A ANTIBODY, IGG Lab Routine Fatty liver Expected: 10/30/2022, Expires: 12/30/2022[facility] Work Phone: Comment on above:Expected: 10/30/2022, Expires: 12/30/2022Start: 03-92-8764NVXCFZKUOR ASSESSMENTDEPRESSION ASSESSMENTKettering Health [facility]ytart: 98-10-3247ClacisdqpbuIGSMQNDGSHeeelfdbc ClinicStart: 2020 SHINGRIX VACCINE (1 of 2)SHINGRIX VACCINE (1 of 2)[facility]: 54-61-2828WVJLVWTP SCREENDIABETES SCREENKettering Health [facility]: 09-25-2015 COLOGUARD (FIT-DNA)COLOGUARD (FIT-DNA)[facility]: 09-25-2015 ColonoscopyCOLONOSCOPYK[facility]: 00-04-5853MWEYROMBLH CANCER SCREENINGCOLORECTAL CANCER SCREENINGK[facility]: 71-34-2056JZ COLONOGRAPHYCT COLONOGRAPHYKettering Health [facility]: 86-85-6171WHUZS OCCULT BLOOD FECAL OCCULT BLOODK[facility]: 46-18-3924RGLHU SCREENLIPID SCREEN [facility]: 11-01-5116ZNMTUYKOQIBYAIPWOUIZWNWOMYCtyewzyfu Clinic Start: 16-70-5556WyhtjucvimqQSHWHARBNPjebaozar ClinicStart: 83-98-9734ROI TESTINGHPV TESTINGK[facility]: 72-18-2393TJD TESTINGPAP TESTING [facility]: 26-27-5106Bhvsvdful for malignant neoplasm of cervixPap SmearCox Walnut LawnStart: 70-63-3287Qmbmjqitl A Vaccines (1 of 2 - Risk 2-dose series)Hepatitis A Vaccines (1 of 2 - Risk 2-dose series)[facility] HealthcareStart: 74-58-7406Eynvybwtr B Vaccines (1 of 3 - 19+ 3-dose series)Hepatitis B Vaccines (1 of 3 - 19+ 3-dose series)[facility] HealthcareStart: 99-75-8801Wqmpn microalbumin profileDTAP,TDAP,TD (1 - Tdap)[facility]: 43-16-4210YUHPPARVA C SCREENINGHEPATITIS C SCREENINGKettering Health [facility]: 89-90-2988GPP SCREENINGHIV SCREENINGK[facility]: 42-17-3013LTkH/Tdap/Td Vaccines (1 - Tdap) DTaP/Tdap/Td Vaccines (1 - Tdap)[facility] HealthcareStart: 76-72-4159YHD Vaccines (1 of 1 - Standard series)MMR Vaccines (1 of 1 - Standard series)[facility] Start: 07-00-8374XANHOZXXD B (1 of 3 - 3-dose series)HEPATITIS B (1 of 3 - 3- dose series)[facility]: 11-04-8816Atjsvuwio for malignant neoplasm of colonBL[facility]OUNTAIN [facility] HealthcarePatient EducationLow back pain in adultsWvumedicine [facility] Work Phone: THIN PREP TIS PAP AND HR HPV DNATHIN PREP TIS PAP AND HR HPV DNA Pathology and Cytology Routine Well woman exam with routine gynecol ogical exam Ordered: 03/29/2024[facility] Work Phone: comment on above:Ordered: [facility] Immunizations Immunization DateImmunizationNotesCare PhnskiliPtvjgbgx18-34-4253lanjduiym, seasonal, injectable, preservative freeMaribeth Galvez APRN Work Phone: [facility]09-09-2024influenza, injectable, madin francesca canine kidney, preservative freeEnrique Alba MD Work Phone: [facility] LawnAxhdkpenvv65-88-2838ktlhrjphd virus vaccine, unspecified formulationEnrique Alba MD Work Phone: [facility] LawnDjqyqafwyy86-05-5221Xsnokromm, injectable, Madin [place] Canine Kidney, preservative free, quadrivalentEnrique Alba MD Work Phone: [phone] [place], [place] [address]Elxqmgiejx24-04-0839ywxjhfqjk virus vaccine, unspecified formulationEnrique Alba MD Work Phone: [phone] [place], [place] [address]Ojshbnhqag10-69-8644Oogxcuxiy, injectable, Madin Francesca Canine Kidney, preservative free, quadrivalentEnrique Alba MD Work Phone: [phone] [place], [place] [address]Oxvkmwavkd58-06-5661AUGN-HCV-0 (COVID-19) vaccine, mRNA, spike protein, LNP, bivalent, preservative free, 30 mcg/0.3 mL dose, joyce-sucrose formulationEnrique Alba MD Work Phone: [phone] [place], [place] [address]Ecffbynysj18-37-7185yaeouw vaccine recombinant Enrique Alba MD Work Phone: [phone] [place], [place] [address]Gkdwbjhilq99-82-5152lgjocadxf, injectable, quadrivalent, preservative freeEnrique Alba MD Work Phone: [phone] [place], [place] [address]Lytgworadg60-53-5793lnsqqj vaccine recombinant Enrique Alba MD Work Phone: [phone] [place], [place] [address]Hktgymxnfd94-05-4636azbqodsla, injectable, quadrivalent, preservative freeEnrique Alba MD Work Phone: [phone] [place], [place] [address]Xykquetpwn56-41-0195fafnxgyoi, high dose seasonal, preservative-freeEnrique Alba MD Work Phone: [phone] [place], [place] [address]Tmfhlxtuiz76-46-7990hcjfaokdj, injectable, quadrivalent, preservative freeEnrique Alba MD Work Phone: [phone] [place], [place] [address]Mpvbsifgow42-08-7226Tfycqgtku, injectable, Madin Francesca Canine Kidney, preservative free, quadrivalentEnrique Alba MD Work Phone: [phone] [place], [place] [address]Cqrcxwsrci06-62-0471Tjvkyjyxt, injectable, Madin Francesca Canine Kidney, quadrivalent with preservativeEnrique Alba MD Work Phone: [phone] [place], [place] [address]Browcvreql84-25-1595npjesusmv, injectable, quadrivalent, preservative freeEdellie Alba MD Work Phone: [phone] [place], [place] [address]Fuxrtnufwa88-21-3227tjkkozcbo, injectable, quadrivalent, preservative freeEnrique Alba MD Work Phone: [phone] [place], [place] [address]Hmrtwtqopw78-30-8258abyezrqdw, seasonal, injectable, preservative freeEnrique Alba MD Work Phone: [phone] [place], [place] [address]Upywuttwxp92-70-2389qcloighsk, injectable, quadrivalent, preservative freeEdellie Alba MD Work Phone: [phone] [place], [place] [address]Ueebiwfwck88-29-0095atlkrtysy, seasonal, injectable, preservative freeEdellie Alba MD Work Phone: [phone] [place], [place] [address]Zegpidhwum21-36-3151sblckujtg, injectable, quadrivalent, preservative freeEdellie Alba MD Work Phone: [phone] [place], [place] [address]Kdfmloenly61-28-0317ydpragdqt virus vaccine, whole virusEdellie Alba MD Work Phone: [phone] [place] [address] Payers DatePayer CategoryPayerPolicy [id number] HEALTHSCOPE BENEFITS [id number] 2022-[facility] [id number] [address] [address] [place] [id number] 76-19-8946Dtpeafa Health Insurance1.2.840.803790.1.13.159.2.7.3.347115.315 [id number] 2.16.840.4.731506.94878087-22-8506Ewxm-duz41-67-1441 [id number] 2.16.840.1.704414.3.579.2.89931-55-6250Uhodanv6351984 2.16.840.1.994522.3.579.[id number] 2.16840.1.160479.3.57[id number] 2.16840.1.253111.3.57[id number] 2.840.1.741338.3.579.2.13967-64-0583Ldwnrin8979390 2.840.1.968437.3.579.2.07[id number] 2.0.1.140492.3.579.2.892966-20-3751Iqzfnmp9141930 2.0.1.736188.3.579.2.810810-51-9905Xzkammw0000976 2.0.1.992059.3.579.2.6[id number] 2..1.458885.3.579.2.[id number] 2.0.1.424594.3.579.2.141706-88-2097Lumkcgf0061574 2.0.1.905103.3.579.2.853721-82-0082Htkbsjh7088259 2.0.1.272218.3.579.2.589749-96-7895Jrmkxlb7260240 2.0.1.760389.3.579.[id number] 2.840.1.407501.3.579.2.[id number] 2.840.1.750986.3.579.[id number] 2.16.840.1.649267.3.579.2.531 Social History DateTypeDetailFacilityUnknown if ever smokedNorth [employer] Other Start: 10-30-2022 End: 87-48-6684Ybz Assigned At BirthK[facility]: 10-16-2012 End: 09-11-9463Vnrcvgl smoking status NHISNever smoked tobaccoMckitrick Hospital Work Phone: Start: 10-16-2012 End: 93-61-7314Izxilxp use and exposureSmokeless tobacco non-userMckitrick Hospital Work Phone: Start: 11-08-2019 End: 82-92-3255Qmuwjxz intakeCurrent non-drinker of alcohol (finding)[facility]: 00-09-9266Ccg Assigned At BirthNot on fileK[facility]tering Health [facility]: 10-30-2022 End: 28-69-8161Pqababy of Social functionKettering Health [facility]ytart: 28-62-6380Zwrlg Depression Screening Cecqziwxlg3Wamgpzmrt ClinicStart: 12-16-2023 End: 25-09-0177Wzvhvnjvu beverage intakeLifetime non-drinker (finding)[facility] HealthcareWithin the last year, have you been afraid of your partner or ex-partner?NoNOMS HealthcareAre you now , , , , never or living with a partner?MarriedNOMS HealthcareHow often to you have a drink containing alcohol?NeverNOMS HealthcareDo you feel stress - tense, restless, nervous, or anxious, or unable to sleep at night because yourmind is troubled all the time - these days [OSQ]Very muchNOMS Healthcare(I/We) worried whether (my/our) food would run out before (I/we) got money to buy more.Never trueNOMS HealthcareStart: 92-55-8939Ubvxkpkin57WYWB HealthcareStart: 11-13-2022 Alcohol CommentCaffeine intake: 2-3 cups per dayNOMS HealthcareSexFemale (finding)[facility]: 25-06-2336Yho Assigned At FemaleC[facility] Medical Equipment Procedure CodeEquipment CodeEquipment Original TextEquipment IdentifierDates Simplex P Bone Cement Radiopaque Full Dose Individual Pack - [id number] Start: 61-23-0690Oigvgei P Bone Cement Radiopaque Full Dose Individual Pack - [id number]_tatZuqnn: 86-00-4849Pczu Fem 4 Lt Kn Cr Ivan Trthln - [id number]_impStart: 63-32-0246Xwr Tib 3 9mm Kn X3 Cr Trthln - [id number] Start: 65-47-0737Ulmy Pat 10mm 32mm Asym Trthln - [id number]_emeFbmfa: 79-23-2856Kibd Pat 10mm 32mm Asym Trthln - [id number]_kdyKwmbq: 03-30-2013 Baseplt Tib Trthln 4 Prim - [id number]_klsCqrbo: 92-76-1876Vsvzesw Tib Trthln 3 Prim - [id number]_ssaCifrc: 03-30-2013 Functional Status XcxcMrzewizodqDsoonsAkpgdbez52-91-1786Kxggwea Health Questionnaire 2 item (PHQ- 2) [Reported][facility] Clinical Notes 01-30-2022 to 02-16-2025 Note Date & KxpsKwohBhfonlkv63-37-7755 NoteSubjective Patient ID: Naima Hernandez is a 54 y.o. female who presents for New Patient (Patient is here today to establish care with cardiology. Patient states she recently had a 30 day holter and a 72 hour holter, along with a stress test. Patient denies chest pain, /), Hypertension, Hyperlipidemia, Shortness of Breath (Sob/duarte with and without activity), Palpitations (Racing heart), Fatigue, and Dizziness (Dizziness/lightheaded with position changes). Was having accelerated heart rate Sob walking/going up stairs. HR 125 on watch while sitting. Drastically off between doctor's office and watch however 3-day monitor: one episode ventricular trigeminy During patient triggering, sinus or sinus tachycardia noted 30-day event monitor normal heart rate range and one reported episode of NSVT of 5 beats Stress test EKGs reviewed by me: normal during lexican infusion. Nuclear reported normal as well. Occasionally has hard time catching breath. Walked up 3 floors stairs and was short of breath. Can feel like a jolt when short of breath. Labs last year AST and ALT elevated. November 19 normal Hgb and iron saturation BP normally ran a little high Hypertension Associated symptoms include palpitations and shortness of breath. Pertinent negatives include no chest pain. Hyperlipidemia Associated symptoms include shortness of breath. Pertinent negatives include no chest pain. Shortness of Breath Pertinent negatives include no chest pain. Palpitations Associated symptoms include dizziness and shortness of breath. Pertinent negatives include no chest pain. Fatigue Associated symptoms include fatigue. Pertinent negatives include no chest pain. Dizziness Associated symptoms include fatigue. Pertinent negatives include no chest pain. Review of Systems Constitutional: Positive for fatigue. Respiratory: Positive for chest tightness and shortness of breath. Cardiovascular: Positive for palpitations. Negative for chest pain. Gastrointestinal: Positive for blood in stool. Genitourinary: Negative for hematuria. Neurological: Positive for dizziness. Negative for syncope. Objective Visit Vitals BP (!) 181/99 (BP Location: Right arm, Patient Position: Sitting) Pulse 98 Physical Exam Constitutional: Appearance: Normal appearance. She is obese. HENT: Head: Normocephalic and atraumatic. Cardiovascular: Rate and Rhythm: Occasional Extrasystoles are present. Chest Wall: PMI is not displaced. Thrill present. Pulses: Carotid pulses are 2+ on the right side and 2+ on the left side. Radial pulses are 2+ on the right side and 2+ on the left side. Heart sounds: Heart sounds not distant. No murmur heard. No friction rub. No gallop. Comments: HR increased to 102 bpm when moving from chair onto table Pulmonary: Effort: Pulmonary effort is normal. Breath sounds: Normal breath sounds. Musculoskeletal: Right lower leg: No edema. Left lower leg: No edema. Skin: General: Skin is warm and dry. Neurological: General: No focal deficit present. Mental Status: She is alert and oriented to person, place, and time. Mental status is at baseline. Psychiatric: Mood and Affect: Mood normal. Behavior: Behavior normal. Thought Content: Thought content normal. Judgment: Judgment normal. Assessment/Plan Mrs. Hernandez has improved body weight and has had some improvement in SOB with ozempic. However, even with minimal activity today, HR increased to 102 going onto table. Plan echo to assess for LVH and assess LV function. Plan routine stress test, J Calros protocol, to assess functional capacity and rhythm during exercise. BP elevated: 181/99 and last HbA1c 7.2 (needs improvement) Has Class 1 indication for MERRILL or ARB especially with high blood pressure. We discussed new diagnosis of diabetes and I recommended she get glucose test strips and meter as well as an endocrinology consult. Have also included information today regarding healthy eating, blood glucose monitoring, and diabetes action plan Diagnosis Plan 1. Shortness of breath 2. Tachycardia 3. Primary hypertension lisinopril 20 mg tablet 4. Diabetes mellitus type II, non insulin dependent ([facility]) lisinopril 20 mg tablet Ambulatory referral to Endocrinology Orders Placed This Encounter Procedures Ambulatory referral to Endocrinology Standing Status: Future Expected Date: 02/16/2025 Expiration Date: 08/17/2025 Referral Priority: Routine Referral Type: Consultation Referral Reason: Specialty Services Required Requested Specialty: Endocrinology Number of Visits Requested: 1 No results found for this or any previous visit (from the past 36 hours). No follow-ups on file.[facility]10-08-2025 Evaluation note* Diagnosis Onset Date Resolution Status Admit Date Depression with anxiety acuteOctober 2024 8:46amHypercholesterolemiaacuteOctober 2024 8:46am Low back painacuteOctober 2024 8:46amRestless legacuteOctober 2024 8:46amType 2 diabetes mellitusacuteOctober 2024 8:46amAnxietyacuteNovember 2024 8:20amType 2 diabetes mellitusacuteNovember 2024 8:20am [facility] Work Phone: 1(129) 671-259807-15-2025 Telephone encounter Note* Telephone Encounter - Enrique Alba MD - 11/09/2024 1:48 PM EDT I did review the patient's previous Holter monitor and both sections of her stress testing. I did a quick search on shortened MT interval during recovery phase only for Lexiscan and really could not find any significant information. Most of the problem seems to be with prolonged MT intervals. I did call the patient and we discussed. They are leaving for vacation this weekend as noted. During discussion it also turns out the patient has not been using her CPAP. I discussed with her that this could be part of the problem for the arrhythmia problem she is experiencing. We have mutually agreed that after their vacation she will reinstitute the CPAP and give me an update in about proximally 2-3 weeks. In the meantime, we will place her on low-dose nebivolol to help with the palpitations. The patient also notes that she is running out of the 100 mg gabapentin that she takes during the day sometimes when her hips bother her and I refilled that. [facility] LawnGlxnwjnycr73-87-0689 Miscellaneous Notes* Telephone Encounter - Enrique Alba MD - 11/09/2024 1:48 PM EDT I did review the patient's previous Holter monitor and both sections of her stress testing. I did a quick search on shortened MT interval during recovery phase only for Lexiscan and really could not find any significant information. Most of the problem seems to be with prolonged MT intervals. I did call the patient and we discussed. They are leaving for vacation this weekend as noted. During discussion it also turns out the patient has not been using her CPAP. I discussed with her that this could be part of the problem for the arrhythmia problem she is experiencing. We have mutually agreed that after their vacation she will reinstitute the CPAP and give me an update in about proximally 2-3 weeks. In the meantime, we will place her on low-dose nebivolol to help with the palpitations. The patient also notes that she is running out of the 100 mg gabapentin that she takes during the day sometimes when her hips bother her and I refilled that. * Telephone Encounter - Imelda DustyhaliSENDY - 11/09/2024 1:19 PM EDT Copied from : [place], July, it is Mary Hernandez. I received a notification from mg that the rest of my nuclear stress test results were in looked like it was a fax page. I could not download anything, but I did notice it came across as abnormal and I was just calling I did not know if the drJanet would want to see me. We are leaving for vacation this Friday and we will be gone for a week. So I did not know if I needed to try to get an appointment over the next few days to get in to see him or what exactly what is the next step of what he wanted to do? So if you could just let me know, I would appreciate it. [phone]. July. documented in this encounterCox Walnut [id number] Telephone encounter Note* Telephone Encounter - Imelda Ramos MA - 11/09/2024 1:19 PM EDT Copied from VM: Me, July, it is Mary Fullerming. I received a notification from mg that the rest of my nuclear stress test results were in looked like it was a fax page. I could not download anything, but I did notice it came across as abnormal and I was just calling I did not know if the drJanet would want to see me. We are leaving for vacation this Friday and we will be gone for a week. So I did not know if I needed to try to get an appointment over the next few days to get in to see him or what exactly what is the next step of what he wanted to do? So if you could just let me know, I would appreciate it. [phone]. July. [facility] LawnTsgvgdspfa48-33-1738 History of Present illness Narrative* Enrique Alba MD - 09/01/2024 1:45 PM EDT Images from the original note were not included. Patient ID: Naima Hernandez is a 53 y.o. female who presents for: Palpitations Patient complains of palpitations and shortness of breath. The symptoms are mild, occur intermittent , and last 10-15 minutes per episode. Cardiac risk factors include: dyslipidemia, hypertension, obesity (BMI >= 30 kg/m2), and sedentary lifestyle. Aggravating factors: started at [employer] at [employer] and intermittently she has it while she is at work . Alleviating factors: none. Associated symptoms: she calls it stopping breathing , she describes it as taking a huge breath every once in a while. Her description sounds like air hunger . She also notes that she has tract her heart rate in sometimes when she feels the palpitations it isbeating at about 130 beats per minute. No [...] (750 mg) by mouth in the morning and1 tablet (750 mg) before bedtime. Do not [...] Future - Holter monitor documented in this encounterCox Walnut [id number] History of Present illness Narrative* Enrique Alba MD - 08/02/2024 3:30 PM EDT Images from the original note were not included. Patient ID: Naima Hernandez is a 53 y.o. female who presents [...] obesity (BMI >= 30 kg/m2), and sedentary lifestyle.Use of agents associated with hypertension: none. History [...] tablet (160 mg) by mouth Daily 90 tablet1 [DISCONTINUED] rOPINIRole (Requip) 0.5 MG tablet One tablet at bedtime 90 tablet 1 metFORMIN XR (Glucophage-XR) 750 MG 24 hr tablet Take 1 tablet (750 mg) by mouth in the morning and1 tablet (750 mg) before bedtime. Do not [...] to worry about her illness. Permission giving. [place] for right now we can sort of [...] Defines a morbid obesity documented in this encounterCox Walnut [id number] Miscellaneous Notes* Telephone Encounter - Luis Eduardo Levine NP - 06/16/2024 3:00 PM EST Please notify patient that negative for acute fracture. Mild flattening of her arch. Does report small plantar enthesophyte which is a bony growth AKA heel spur. This is doubtful to be the cause of her pain. Follow up with PCP as she may need a Podiatry referral. Thanks. FINDINGS: There is slight narrowing of the 1st metatarsophalangeal articulation. Tarsometatarsal alignment isnormal. There is mild flattening of the arch and slight midfoot arthrosis. There is a tiny plantar calcaneal enthesophyte. Slight hammertoe deformities are seen IMPRESSION: Mild flattening of the arch and slight midfoot arthrosis Small plantar calcaneal enthesophyte documented in this encounterNOMS [id number] Telephone encounter Note* Telephone Encounter - Luis Eduardo Levine NP - 06/16/2024 3:00 PM EST Please notify patient that negative for acute fracture. Mild flattening of her arch. Does report small plantar enthesophyte which is a bony growth AKA heel spur. This is doubtful to be the cause of her pain. Follow up with PCP as she may need a Podiatry referral. Thanks. FINDINGS: There is slight narrowing of the 1st metatarsophalangeal articulation. Tarsometatarsal alignment isnormal. There is mild flattening of the arch and slight midfoot arthrosis. There is a tiny plantar calcaneal enthesophyte. Slight hammertoe deformities are seen IMPRESSION: Mild flattening of the arch and slight midfoot arthrosis Small plantar calcaneal enthesophyte [facility] [id number] History of Present illness Narrative* Luis Eduardo Levien NP - 06/15/2024 6:10 PM EST HPI: Historian of HPI: patient and significant other Naima Hernandez is a 53 y.o. female who presents [...] foot and does not radiate. She does havea foot brace that usually helps, but over [...] Medrol dose pack and follow up with PCPif no improvement in symptoms for further evaluation. FINDINGS: There is slight narrowing of the 1st metatarsophalangeal articulation. Tarsometatarsal alignment isnormal. There is mild flattening of the arch and slight midfoot arthrosis. There is a tiny plantar calcaneal enthesophyte. Slight hammertoe deformities are seen IMPRESSION: Mild flattening of the arch and slight midfoot arthrosis Small plantar calcaneal enthesophyte See telephone encounter. documented in this encounterCox Walnut LawnLuytpsygld75-04-1438 History of Present illness Narrative* Beatriz Chavis NP - 04/17/2024 10:05 AM EST HPI: Historian of HPI: patient is present Naima Hernandez is a 53 y.o. female who presents today to the Urgent Care with the following complaints and denials due left knee pain which has been present for 1 month(s). Pt states that her left knee has been hurting for a couple of weeks. Pt states that her knee lockedup the other day. Pt states that she [...] symptoms worsen or fail to improve. Beatriz Chavis NP documented in this encounterCox Walnut LawnRcwrkdroei59-79-1037 History of Present illness Narrative* Enrique Alba MD - 04/05/2024 1:45 PM EST Images from the original note were not included. Patient ID: Naima Hernandez is a 53 y.o. female who presents for: Upper Respiratory Infection Patient complains of symptoms of a URI. Symptoms include bilateral ear pressure/pain, nasal congestion, non productive cough, sore throat, vertigo, and wheezing. Onset of symptoms was 1 week ago, andhas been gradually worsening since that time. Treatment [...] (500 mg) by mouth in the morning and1 tablet (500 mg) in the evening. Take [...] mg) by mouth Daily for 7 days Dispense:7 tablet; Refill: 0 documented in this encounterCox Walnut LawnXvechsxoop63-22-1047 History of Present illness Narrative* OSVALDO Wilks - 03/29/2024 11:00 AM EST Reason for Appointment: Patient ID: Naima Hernandez is a 53 y.o. female who presents [...] glucose tolerance) 09/17/2022 Hepatitis 09/17/2022 HTN (hypertension) ([facility]) 09/17/2022 Insomnia due to other mental disorder 09/17/2022 Mixed dyslipidemia ([facility]) 09/17/2022 Morbid obesity ([facility]) 09/17/2022 Obstructive sleep apnea hypopnea, moderate 09/17/2022 Osteoarthritis of joint of toe of right foot 09/17/2022 Other chronic pain 09/17/2022 Overactive bladder 09/17/2022 Primary osteoarthritis, right hand 09/17/2022 Recurrent major depressive disorder, in partial remission (HCC) ([facility]) 09/17/2022 Sleep disorder 09/17/2022 Status post bilateral knee replacements 09/17/2022 Enuresis 09/17/2022 Urinary incontinence 09/17/2022 Adult BMI 45.0-49.9 kg/sq m ([facility]) 05/14/2023 Restless leg syndrome 08/14/2023 [...] JOINT REPLACEMENT OTHER SURGICAL HISTORY bilateral arthroscopy MT LAP,CHOLECYSTECTOMY 2016 TOTAL KNEE ARTHROPLASTY Bilateral 2014 [...] nursing note reviewed. Exam conducted with a binder cutter present. Vitals: Estimated body mass index is [...] behalf of: OSVALDO Wilks documented in this encounterCox Walnut [id number] History of Present illness Narrative* Enrique Alba MD - 03/11/2024 2:30 PM EST Images from the original note were not included. Patient ID: Naima Hernandez is a 53 y.o. female who presents for: Review Results: Patient is here in the office today to review recent labs or diagnostic imaging with Dr Nathaniel Alba per his request. Based on the results they will also review treatment options. Please see labs datedNovember 8th 2024. Review of Systems Constitutional: Negative for [...] discussed the importance of stretching in the eveningsome time. We discussed medication options. In prescribing [...] tablet (500 mg) by mouth in the evening.Take with meals Do not crush, chew, or [...] which is the exact [facility] I was [facility]. A new prescription for the 160 mg was sent. documented in this encounterCox Walnut [id number] History of Present illness Narrative* Enrique Alba MD - 02/25/2024 3:30 PM EDT Images from the original note were not included. Patient ID: Naima Hernandez is a 53 y.o. female who presents for: See Scanned Wellness packet Advance Directive/Living Will: No Health Care Power of Manager Research: No Review of Systems Constitutional: Positive for [...] through a living will, durable power of contract attorney for healthcare, or other advanced directives. We discussed telling chaudhry people about their advance and a copy will be kept in the EHR. I discussedthat they should also make me an emergency [...] mammogram with tomosynthesis; Future documented in this encounterNOResearch Belton HospitalQdslptqzfi46-04-0882 Telephone encounter Note* Telephone Encounter - Enrique Alba MD - 12/25/2023 11:16 AM EDT Rx sent [id number] Miscellaneous Notes* Telephone Encounter - Enrique Alba MD - 12/25/2023 11:16 AM EDT Rx sent documented in this encounterCox Walnut [id number] History of Present illness Narrative* Enrique Alba MD - 12/16/2023 4:30 PM EDT Images from the original note were not included. Patient ID: Naima Hernandez is a 53 y.o. female who presents [...] for sleep disturbance. Negative for agitation, behavioral problemsand suicidal ideas. The patient is nervous/anxious. Objective [...] capsule (37.5 mg) by mouth Daily Do notcrush or chew. Dispense: 30 capsule; Refill: 0 3. Morbid obesity (CMS/HCC) 4. Adult BMI 45.0-49.9 kg/sq m (CMS/HCC) documented in this encounterCox Walnut LawnVasqkaqrkt27-96-0238 NoteHNO ID: [id number] Author: Taylor Gee RD Service: ? Author Type: Registered Dietitian Type: Progress Notes Filed: 12/05/2022 2:43 PM Note Text: [facility] Nutrition Therapy: Virtual Consult - Initial Assessment I have communicated my name and active licensure. The patient?s identity and physical location were verified at the time of this visit. Either the patient or their legal contact center representative has been informed of the risks [...] Slimfast High Protein, Atkins, [employer], [employer] Nutrition Plan 6. Choose lean protein sources [...] 4-5 months on same day as Dr. Hernandez Patient presents with fatty liver for nutrition [...] cheese or fruit or none Lunch - [id number]-[id number] w/ chicken/ham, makenzie, onion, pepper FF ranch or meat loaf + applesauce Snack - work-sugar free pudding or fruit; home-chips w/ cheese or popcorn Dinner - meat loaf/hamburger/chicken/steak/shrimp + veg +/- sweet potato/SF baked beans [...] limitations affecting learning: None Referred by: Anibal Hernandez MNT Billing Type: Initial Assess/15 min 2 units SIGNATURE: Taylor Gee RD PATIENT NAME: Naima Fullerming DATE: 12/05/2022 TIME: 2:05 PM PAGER: [phone] [facility] History of Present illness Narrative* Taylor Gee RD - 12/05/2022 2:02 PM EDT [facility] Nutrition Therapy: Virtual Consult - Initial Assessment I have communicated my name and active licensure. The patient s identity and physical location wereverified at the time of this visit. Either the patient or their legal contact center representative has been informed of the risks and benefits of -- and alternatives to -- treatment through a remote evaluation andconsents to proceed with the evaluation remotely. Nutrition [...] 4-5 months on same day as Dr. Hernandez Patient presents with fatty liver for nutrition [...] cheese or fruit or none Lunch - [id number] w/ chicken/ham, makenzie, onion, pepper FF ranch or meat loaf + applesauce Snack - work-sugar free pudding or fruit; home-chips w/ cheese or popcorn Dinner - meat loaf/hamburger/chicken/steak/shrimp + veg +/- sweet potato/SF baked beans [...] limitations affecting learning: None Referred by: Anibal Hernandez MNT Billing Type: Initial Assess/15 min 2 units SIGNATURE: Taylor Gee RD PATIENT NAME: Naima Hernandez DATE: 12/05/2022 TIME: 2:05 PM PAGER: [phone] documented in [facility] NoteHNO ID: [id number] Author: Radha Hernandez MD Service: ? Author Type: Physician Type: Progress Notes Filed: 10/30/2022 2:34 PM Note Text: Hepatology Clinic Mindy Richey MD, FACG, FAASLD Director, [facility] Consult Requested By: Mike Salgado [address] [facility] [id number] for evaluation of her fatty liver .. 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 Please feel free to contact me if I can be of further assistance to you {I spent 45 minutes in the visit, with more than 50% of the total utgw-jt-kmpw time of the visit in counseling / coordination of care.[facility]07-05-2023 History of Present illness Narrative* Radha Hernandez MD - 10/30/2022 1:30 PM EDT Images from the original note were not included. Hepatology Clinic Mindy Richey MD, FACG, FAASLD Director, [facility] Consult Requested By: Mike Salgdao [address] [facility] [id number] for evaluation of her fatty liver .. 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 Please feel free to contact me if I can be of further assistance to you {I spent 45 minutes in the visit, with more than 50% of the total lmai-ek-edoa time of the visit incounseling / coordination of care. [facility]23 NoteHNO ID: [id number] Author: Mariajose Stallworth MD Service: ? Author Type: Physician Type: Progress Notes Filed: 08/01/2022 3:52 PM Note Text: Rheumatology Outpatient Clinic Date of Service: 08/01/2022 Patient: Naima Hernandez Medical Record: [id number] Primary Care Physician: Zeferino Flores Last Rheumatology visit: [facility] History of Present Illness Naima Hernandez is a 51 year old White female [...] Frequency: Continuous Continuous Intervention/Comfort measure: Medication;Massage;Therapeutic techniques-CPRP Medication;Relaxation;Heat;Exercise;Massage Comments: Fingers, toes, left hip, shoulders -- [...] , low transverse COLONOSCOP W/ OR W/O [facility] SPEC Colonoscopy EGD EXTRACTION, ERUPTED TOOTH [...] mouth as needed. meloxicam (more content not included)...[facility]04-06-2023 History of Present illness Narrative* Mariajose Stallworth MD - 08/01/2022 3:09 PM EDT Images from the original note were not included. Rheumatology Outpatient Clinic Date of Service: 08/01/2022 Patient: Naima Hernandez Medical Record: [id number] Primary Care Physician: Zeferino Flores Last Rheumatology visit: None at [facility] History of Present Illness Naima Hernandez is a 51 year old White female who presents on 08/01/2022 for an in-person visit for evaluation of New Patient (Arthritis in hands )and Joint Pain. She is currently taking meloxicam. Naima is RF negative - 9 (10/14/2019). Her most recent ARTIE was negative (10/14/2019). HISTORY OF PRESENT ILLNESS Patient presents for evaluation of joint pain in several different joints. She states that she is have problems with the DIP joints of several of the fingers most active in her left second DIP joint.She has also had problems with her feet [...] assessment. She also underwent hand x-rays that showerosive changes of osteoarthritis in the DIP joints. [...] Frequency: Continuous Continuous Intervention/Comfort measure: Medication;Massage;Therapeutic techniques-CPRP Medication;Relaxation;Heat;Exercise;Massage Comments: Fingers, toes, left hip, shoulders -- [...] , low transverse COLONOSCOP W/ OR W/O [facility] SPEC Colonoscopy EGD EXTRACTION, ERUPTED TOOTH [...] There is narrowing of all interphalangeal joints. Public Relations Professional: MARJ Transcribe Date/Time: Oct 10 2019 10:51A... Last MRI Hand - Impression Only No resulted procedures found. Last XR Chest - Impression Only No resulted procedures found. Last XR Cervical Spine - Impression Only No resulted procedures found. Health Maintenance Current Immunizations Never Reviewed Name Date COVID-19 vaccine, bivalent ([employer]) 01/15/2022 COVID-19 vaccine, monovalent (P[employer]ION[employer]anTree) 07/27/2021 , 03/08/2021 , 08/04/2020 Physical Exam GENERAL APPEARANCE: Well groomed. Alert and oriented x 3. In no distress. VITAL SIGNS: BP 177/81 Pulse 101 LMP 03/09/2013 SKIN: No rash, thickening, nodules, discoloration. EYES: PERRL, EOMI. No inflammation seen. HENT: External examination and palpation of the ears and nose normal. Lips, teeth, and gums normal.Oropharynx and tongue normal. No lesions or exudate. [...] in her DIP joints is unique and difficultto treat. I reviewed her labs and x-rays from 2019 and I do not feel any reassessment of these would be fruitful. I discussed concepts of treatment and they are quite limited. Certainly chronic NSAIDuse can provide benefit long-term at but it [...] which included preparing to see the patient, vurm-qd-swwv patient care, completing clinical documentation, obtaining and/or reviewing separately obtained history, performing a medically appropriate examination, counseling and educating the pat ient/family/caregiver, ordering medications, tests, or procedures, independently interpreting results (not separately reported), and communicating results to the patient/family/caregiver. Medical Decision Making: Problems: Moderate: 1+ chronic illnesses with change Data: Unique test result(s) reviewed: 3+ Risk: Moderate: Moderate risk from testing/treatment Medical Decision Making Level: 4 - Moderate Mariajose Stallworth MD Rheumatology Date: August 01, 2022 Time: 3:09 PM [facility] Evaluation note* Encounter Date Diagnosis Assessment Notes Treatment Notes Treatment Clinical Notes Apr, Fatty liver (ICD-10 - K76.0) LABS PATIENT ENCOURAGED WEIGHT LOSS. REFERRAL TO WEIGHT LOSS CLINIC WITH DR. LI. Apr,Elevated liver enzymes (ICD-10 - R74.8) [employer] Other 10-05-2022 Evaluation note* Encounter Date Diagnosis Assessment Notes Treatment Notes Treatment Clinical Notes Jan, Elevated liver enzymes (ICD-10 - R74.8) patient states this is usually a little elevated but this time it had tripeled we will order some testing at this time. Jan,Fatty liver (ICD-10 - K76.0)will order testing at this time encouraged weight loss with the patient patient to start vitamin e and milk thistle OTC [employer] Other Evaluation noteNo InformationNort [employer] Other Evaluation note* Diagnosis Erosive osteoarthritis of both hands- Primary Primary osteoarthritis involving multiple joints NSAID long-term use Encounter for long-term (current) use of non-steroidal anti-inflammatories documented [facility]* Diagnosis Fatty liver- Primary Other chronic nonalcoholic liver disease Class 3 severe obesity due to excess calories in adult, unspecified BMI, unspecified whether serious comorbidity present (HCC) [facility]* Diagnosis Fatty liver Other chronic nonalcoholic liver disease [facility]* Diagnosis Encounter for wellness examination in adult- Primary Advance directive discussed with patient Morbid obesity ([facility]/HCC) Morbid obesity Adult BMI 45.0-49.9 kg/sq m ([facility]/HCC) Glucose intolerance (impaired glucose tolerance) Impaired glucose tolerance test Mixed hyperlipidemia (CMS/HCC) Mixed hyperlipidemia Primary hypertension ([facility]/HCC) Unspecified essential hypertension Menopausal and female climacteric states Osteoporosis screening Special screening for osteoporosis Encounter for follow-up examination after completed treatment for conditions other than malignant neoplasm Screening mammogram for breast cancer documented in this encounter [facility] HealthcareEvaluation note* Diagnosis Mixed dyslipidemia ([facility]/HCC) documented in this encounter [facility] HealthcareEvaluation note* Diagnosis Pre-diabetes- Primary Other abnormal glucose Restless leg syndrome Restless legs syndrome (RLS) Mixed dyslipidemia ([facility]/HCC) documented in this encounter [facility] HealthcareEvaluation note* Diagnosis Well woman exam with routine gynecological exam Routine gynecological examination Yeast infection of the skin Candidiasis of skin and nails documented in this encounter [facility] HealthcareEvaluation note* Diagnosis Pre-diabetes Other abnormal glucose documented in this encounter [facility] HealthcareEvaluation note* Diagnosis Acute non-recurrent pansinusitis- Primary documented in this encounter [facility] HealthcareEvaluation note* Diagnosis Insomnia due to other mental disorder Recurrent major depressive disorder, in partial remission (HCC) ([facility]) Morbid obesity ([facility]/HCC) Morbid obesity Adult BMI 45.0-49.9 kg/sq m ([facility]) documented in this encounter [facility] HealthcareEvaluation note* Diagnosis Recurrent major depressive disorder, in partial remission (HCC) ([facility])- Primary documented in this encounter [...] major depressive disorder, in partial remission (HCC) ([facility]) Primary hypertension ([facility] CREST/HCC) Unspecified essential hypertension Mixed dyslipidemia (CMS/HCC) Pre-diabetes Other abnormal glucose Morbid obesity (CMS/HCC) Morbid obesity Adult BMI 45.0-49.9 kg/sq m (CMS/HCC) documented in this encounter [facility] HealthcareEvaluation note* Diagnosis Palpitations- Primary Tachycardia Unspecified tachycardia documented in this encounter [facility] HealthcareEvaluation note* Diagnosis Palpitations- Primary Primary hypertension Unspecified essential hypertension Bilateral hip pain Pain in joint, pelvic region and thigh documented in this encounter [facility] HealthcareEvaluation note* Diagnosis Onset Date Resolution Status Admit Date Depression with anxiety acuteOctober 2024 8:46am [facility] Work Phone: History general Narrative - Reported* Type Description Date Medical History Unspecified essential hypertensi on Medical HistoryHypercholesterolemiaMedical HistoryDepression with anxiety Surgical HistoryC/[id number] HistoryBilateral knee [id number] Surgical HistorycholecystectomySurgical Historywisdom teethSurgical Historycyst removalHospitalization HistorySee past surgical hx [employer] [facility] [employer] Other Reason for referral (narrative)No reason for referral information availableW[facility]umedicine [facility] Work Phone: Reason for visit NarrativePT HERE REQ OF DR. ALBA FOR ELEVATED LIVER ENZYMES, (referral note received)[employer] Other Summary Purpose Family History Relationship Condition Age at Onset Recorded Date/T prema family member Adopted Unknown motherMalignant neoplasmUnknownDeceasedUnknown Advance Directives Advance Directive Response Recorded Date/ Time Advance Directives No February 5:41pm Advance Directive Response Recorded Date/ Time Advance Directives No February 4:41pm Reason for Referral SpecialtyDiagnoses / ProceduresReferred By ContactReferred To ContactNutrition Diagnoses Fatty liver Procedures CONSULT TO NUTRITION THERAPY MEDICAL NUTRITION ASSMT&IVNTJ INDIV EACH 15 [place] MEDICAL NUTRITION ASSMT&IVNTJ INDIV EACH 15 [place] MEDICAL NUTRITION ASSMT&IVNTJ INDIV EACH 15 [place] MEDICAL NUTRITION ASSMT&IVNTJ INDIV EACH 15 [place] Radha Abdul MD [address] [address] Referral IDStakanuTaraDaija DateExpiration DateVisits RequestedVisits [id number] PCP Requested Referral Chief Complaint and Reason for Visit Chief Complaint Admit Date Est Care February 02, 2025 8: 46am Reason for Visit Admit Date Depression with anxiety February 02 8:46am Chief Complaint Admit Date Est Care February [...] 2 diabetes mellitus March 02, 025 8:20am Additional Source Comments INFORMATION SOURCE (unrecogn ized section and content) DATE CREATED AUTHOR 12/24/2019 [facility] DATE CREATED AUTHOR AUTHOR'S ORGANIZ ATION 11/14/2021 [facility] DATE CREATED AUTHOR AUTHOR'S ORGANIZ ATION 03/07/2022 [facility] DATE CREATED AUTHOR AUTHOR'S ORGANIZ ATION 12/06/2022 [facility] DATE CREATED AUTHOR AUTHOR'S ORGANIZ ATION 09/04/2024 [facility] DATE CREATED AUTHOR AUTHOR'S ORGANIZ ATION 02/21/2025 [facility] REASON FOR VISIT (unrecogniz ed section and content) ReasonCommentsNew PatientArthritis in handsJoint PainReasonCommentsNew Patient Consult for fatty liverSpecialtyDiagnoses / ProceduresReferred By Contact Referred To ContactGastroenterology / GASTROENTEROLOGY Diagnoses Encounter for follow-up examination after completed treatment for conditions other than malignant neoplasm Fatty liver Procedures OFFICE/OUTPATIENT ESTABLISHED MOD MDM 30-39 MIN NEW DDI PATIENT Mike Salgado DO [address] [place] [address] Radha Abdul MD [address] [place] [address] Referral IDStatusReasonStart DateExpiration DateVisits RequestedVisits [id number] Education AssessmentSpecialtyDiagnoses / ProceduresReferred By ContactReferred To Contact Nutrition Diagnoses Fatty liver Procedures CONSULT TO NUTRITION THERAPY MEDICAL NUTRITION ASSMT&IVNTJ INDIV EACH 15 [place] MEDICAL NUTRITION ASSMT&IVNTJ INDIV EACH 15 [place] MEDICAL NUTRITION ASSMT&IVNTJ INDIV EACH 15 [place] MEDICAL NUTRITION ASSMT&IVNTJ INDIV EACH 15 [place] Radha Abdul MD [address] [place] [address] Referral IDStatusReasonStart DateExpiration DateVisits RequestedVisits [id number] PCP Requested Referral /[id number] ExamReasonCommentsMed Change Request ReasonCommentsResultsReasonCommentsWell Women VisitReasonCommentsURIReason CommentsAnxietyReasonCommentsMed RefillReasonCommentsHypertensionHyperlipidemia AnxietySleeping ProblemReasonCommentsPalpitationsReasonOnset DateCommentsCare Uwlgaxyyomcn44/15/2025 Source Comments (unrecognize d section and content) In the event this informatio n is protected by the Federal Confidentiality of Alcohol and Drug Abuse Patient Records regulations: The Federal rules restrict any use of the information to criminally investigate or prosecute any alcohol or drug abuse patient.[facility] HospitalIn the event this information is protected by the Federal Confidentiality of Alcohol and Drug Abuse Patient Records regulations: The Federal rules restrict any use of the information to criminally investigate or prosecute any alcohol or drug abuse patient.[facility] HospitalIn the event this information is protected by the Federal Confidentiality of Alcohol and Drug Abuse Patient Records regulations: The Federal rules restrict any use of the information to criminally investigate or prosecute any alcohol or drug abuse patient.[facility] Care Teams (unrecognized sec tion and content) Team MemberRelationshipSpecialtyStart DateEnd Date Zeferino Flores PCP - GeneralInternal Medicine08/26/12Te MemberRelationshipSpecialtyStart Date End Date Zeferino Flores PCP - GeneralInternal Medicine08/26/12Temichael MemberRelationshipSpecialtyStart Date End Date Zeferino Flores PCP - GeneralInternal Medicine08/26/[address] [facility] [address] [id number] Registered DietitianNutrition12/05/22am MemberRelationshipSpecialtyStart Date End Date Enrique Alba MD (Fax) PCP - GeneralFamily Medicine09/16/22Team MemberRelationshipSpecialtyStart DateEnd Date Enrique Alba MD (Fax) PCP - GeneralFamily Medicine09/16/22Team MemberRelationshipSpecialtyStart DateEnd Date Enrique Alba MD (Fax) PCP - GeneralFamily Medicine523Team MemberRelationshipSpecialtyStart DateEnd Date Enrique Alba MD (Fax) PCP - GeneralFamily Medicine5Team MemberRelationshipSpecialtyStart DateEnd Date Enrique Alba MD (Fax) PCP - GeneralFamily Medicine5/Team MemberRelationshipSpecialtyStart DateEnd Date Enrique Alba MD (Fax) PCP - GeneralFamily Medicine09/16/22Team MemberRelationshipSpecialtyStart DateEnd Date Enrique Alba MD (Fax) PCP - GeneralFamily Medicine09/16/22Team MemberRelationshipSpecialtyStart DateEnd Date Enrique Alba MD (Fax) PCP - GeneralFamily Medicine09/16/22Team MemberRelationshipSpecialtyStart DateEnd Date Enrique Alba MD [address] [place] [address] PCP - GeneralFamily Medicine523Team MemberRelationshipSpecialtyStart DateEnd Date Enrique Alba MD [address] [place] [address] PCP - GeneralFamily Medicine5//23Team MemberRelationshipSpecialtyStart DateEnd Date Enrique Alba MD (Fax) PCP - GeneralFamily Medicine09/16/22Team MemberRelationshipSpecialtyStart DateEnd Date Enrique Alba MD (Fax) PCP - Generalmily Medicine09/16/22Team MemberRelationshipSpecialtyStart DateEnd Date Enrique Alba MD (Fax) PCP - Generalmily Medicine09/16/22Team MemberRelationshipSpecialtyStart DateEnd Date Enrique Alba MD (Fax) PCP - Generalmily Medicine09/16/22Team MemberRelationshipSpecialtyStart DateEnd Date Enrique Alba MD (Fax) PCP - Generalmily Medicine09/16/22Team MemberRelationshipSpecialtyStart DateEnd Date Enrique Alba MD (Fax) PCP - Generalmily Medicine09/16/22Team MemberRelationshipSpecialtyStart DateEnd Date Enrique Alba MD (Fax) PCP - GeneralFamily Medicine09/16/22 Team Status: Active Member Role Status Dates Maribeth Galvez APRN [employer] Primary Care Provider Active Team Status: Inactive Member Role Status Dates Maribeth Galvez APRN [employer] Primary Care Provider Active Start: February 02, 2025 End: February 02, 2025Maribeth Galvez APRN [employer]-CAttending ProviderActive Start: February 02, 2025 End: February 02, 2025 Team Status: Active Member Role/Relationship Status Dates Maribeth Galvez APRN [employer] Primary Care Provider Active Team Status: Inactive Member Role/Relationship Status Dates Maribeth Galvez APRN [employer] Primary Care Provider Active Start: February 02, 2025 End: February 02, 2025Maribeth Galvez APRN [employer]-CAttenwillie ProviderActive Start: February 02, 2025 End: February 02, 2025 Team Status: Inactive Member Role/Relationship Status Dates Maribeth Galvez APRN [employer] Primary Care Provider Active Start: February End: March 02, 2025Maribeth Galvez APRN [employer]-CAttending ProviderActive Start: March 02, 2025 End: March 02, 2025 Goals (unrecognized section and content) Goals may be documented in a n alternate section FOR RECORDS PERTAINING TO PATIENTS WHO ARE [...] BE BASED ON THE PRIMARY CLINICAL RECORDS. [facility]. provides no warranty or guarantee of the accuracy or completeness of information in this document.
--- NOTE | 2025-03-07 07:22 | MM_ITS ---
Patient Name: NAIMA HERNANDEZ MR#: [id number] : 1970 Exam Date: 03/07/2025 Ordering Doctor: OSVALDO DAVIS . RADIOLOGY REPORT PROCEDURE: MM TOMOSYNTHESIS SCREENING BI COMPARISON: MM TOMOSYNTHESIS SCREENING BI, 03/05/2024. MG MAMM SCREEN 3D RONEN CAD, 11/05/2021. MAMMO RONEN SCREEN, 07/12/2020. MG MAMM SCREEN RONEN W CAD, 05/14/2019. INDICATIONS: Screening Calculator Name NCI Breast Cancer Risk Assessment Tool 5 Year Breast Cancer Risk 1.90% Lifetime Breast Cancer Risk 13.30% Personal Breast Cancer No Personal Ovarian Cancer No Treatments None Family Cancers None LOCATION: [facility] BREAST COMPOSITION: There are scattered areas of fibroglandular density. FINDINGS: RIGHT BREAST: No significant suspicious finding. Benign-appearing lymph nodes are noted along the right chest wall. LEFT BREAST: No significant suspicious finding. Benign-appearing calcifications are present. DIAGNOSTIC CATEGORY 2--BENIGN FINDING. NO CHANGE FROM COMPARISON. RECOMMENDATIONS: ROUTINE MAMMOGRAM AND CLINICAL EVALUATION IN 12 MONTHS. Dictated by: Shayan Chen MD on 03/07/2025 at 10:55 Approved by: Shayan Chen MD on 03/07/2025 at 10:59
== END 2025-03-07 07:19 | disposition home or self-care (01) ==
LOC: MAMMO 07:18
PROVIDERS: PCP Nurse Practitioner Family; Visit Provider Physician Assistant
DX: Z12.31 Encounter for screening mammogram for malignant neoplasm of breast (principal)
CPT/HCPCS: 77063; 77067

== ENCOUNTER 2025-03-07 07:20 | Outpatient (OUT) | payer OTHER, SELFPAY ==
--- OUTSIDE RECORDS SUMMARY | 2025-03-07 07:23 | XMS_ITS | CCD ---
Author Organization [facility] CliniSyin Care Team Providers Care Fha Underwriter Name Role Phone ANJALI, DR BLAKELY Admitting [...] Primary Care Provider UnavailTaylor Puckett RD Unavailable RADHA ABDUL Referring UnavailTAYLOR Puckett Attending Unavailable ZEFERINO FLORES E Primary Care Unavailable RADHA ABDUL Attending UnavailMIKE Mayo Referring Unavailable JUNIE FLOREST E Primary Care Unavailable MARIAJOSE STALLWORTH Attending Unavailable ZEFERINO FLORES Primary Care Unavailable Enrique Alba MD Primary Care Provider [phone] Enrique Alba MD Primary Care Provider [phone] LUIS EDUARDO LEVINE Attending Unavailable LUIS EDUARDO [...] Provider Maribeth Galvez APRN Attending Provider [phone] Allergies Allergy ClassificationReported Allergen(s)Allergy TypeDate of OnsetReaction(s) Facility (20 sources)DULoxetine; 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: [DULOXETINE HCL]Drug Nnoeqxd99-92-0226[facility] (20 sources)metFORMIN; 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: [METFORMIN]Drug Nhhjamd22-08-9441[facility] Work Phone: Medications Current Medications MedicationDrug Class(es)DatesSig (Normalized)Sig (Original)[id number] 200 actuat albuterol 0.09 mg/actuat metered dose inhaler (20 sources)beta2-Adrenergic AgonistStart: 95-20-0870gsuc 2 puff(s) by inhalation every six hours for wheezingalbuterol HFA (ProAir HFA) 90 mcg/act inhaler Indications: Bronchitis Inhale 2 puffs every 6 (six) hours if needed for wheezing 18 g 3 05/14/2023 ActiveStart: 94-10-7032hrvz 2 puff(s) by inhalation every six hours as neededalbuterol HFA (PROVENTIL HFA, VENTOLIN HFA) 90 mcg/actuation inhaler Inhale 2 Puffs as instructed every 6 hours as needed. 0 09/26/2017 ActiveComment on above:Inhale 2 Puffs as instructed every 6 hours as needed.Blood-Glucose Sensor (Dexcom G6 Sensor) device (1 source)Start: 41-99-7524Ardzk-Glucose Sensor (Dexcom G6 Sensor) device Active 0 .Route 3 March 02, 2025 12:00am To check blood sugar dailyBlood- Glucose,Human Geography Faculty Member,Cont (Dexcom G7 Human Geography Faculty Member) misc (1 source)Start: 65-70-5710Clhhz-Glucose,Human Geography Faculty Member,Cont (Dexcom G7 Human Geography Faculty Member) misc Active 0 .Route 1 March 02, 2025 12:00am Check blood sugar dailybusPIRone hydrochloride 5 mg oral tablet (1 source)Start: 15-19-0173xchb 1 tablet by mouth twice dailyBuspirone 5 mg tablet Active 5 MG PO Twice daily 60 30 March 02, 2025 12:00am Anxiety Anxietydisorder, unspecified Complies with drug therapycitalopram 10 mg oral tablet (3 sources)Serotonin Reuptake InhibitorStart: 52-32-9933cioa 1 tablet by mouth once dailycitalopram (CeleXA) 10 MG tablet Indications: Hot flashes , Menopausal symptoms Take 1 tablet (10 mg) by mouth Daily 30 tablet 3 05/12/2024 Active diclofenac sodium 0.03 mg/mg topical gel (20 sources)Nonsteroidal Anti-inflammatory DrugStart: 31-61-5988mtrxeklbhr sodium 3 % gel Apply 1 application topically every 6 (six) hours. 07/23/2021 Activefenofibrate 160 mg oral tablet (20 sources)Peroxisome Proliferator Receptor alpha AgonistStart: 03-15-2024 End: 40-81-5077cqqj 1 tablet by mouth once dailyfenofibrate (Triglide) 160 MG tablet Indications: Mixed dyslipidemia Take 1 tablet (160 mg) by mouth Daily 90 tablet 1 08/02/2024 01/29/2025 ActiveStart: 03-11-2024 End: 74-21-3076gskf 1 capsule by mouth once dailyFenofibrate 150 MG capsule Indications: Mixed dyslipidemia (CMS/HCC) Take 150 mg by mouth Daily 30 capsule 03/11/2024 03/15/2024 Discontinued (Formulary change)Start: 01-29-2023 End: 52-93-1307vopt 1 tablet by mouth in the morningfenofibrate (Tricor) 145 MG tablet Indications: Mixed hyperlipidemia (CMS/HCC) Take 1 tablet (145 mg) by mouth in the morning. 90 tablet 1 01/29/2023 02/25/2024 Discontinued (Therapy completed)Fezolinetant (Veozah) 45 MG tablet (5 sources)Start: 07-21-2024 End: 12-80-2699javs 1 tablet by mouth once dailyFezolinetant (Veozah) 45 MG tablet Indications: Hot flashes , Menopausal symptoms Take 45 mg by mouth Daily 30 tablet 1 07/21/2024 09/01/2024 ActiveStart: 07-21-2024 End: 54-59-3614oykw 1 tablet by mouth once dailyFezolinetant (Veozah) 45 MG tablet Indications: Hot flashes , Menopausal symptoms Take 45 mg by mouth Daily 30 tablet 1 07/21/2024 08/20/2024 Activegabapentin 100 mg oral capsule (20 sources)Anti-epileptic AgentStart: 11-09-2024 End: 54-96-2595lauh 1 capsule by mouth three times daily as neededGabapentin 100 mg capsule Active 100 MG PO Three times daily as needed February 01, 2025 11:00pm Complies with drug therapyStart: 08-02-2024 End: 38-15-8229hzpb 1 capsule by mouth at bedtimegabapentin (Neurontin) 300 MG capsule Indications: Restless leg syndrome Take 1 capsule (300 mg) bymouth at bedtime 90 capsule 1 08/02/2024 01/29/2025 ActiveStart: 08-19-2023 End: 68-89-7128ycer 1 capsule by mouth at bedtimegabapentin (Neurontin) 300 MG capsule Indications: Acute left-sided back pain with sciatica Take 1 capsule (300 mg) by mouth at bedtime 90 capsule 1 08/19/2023 02/25/2024 Discontinued Start: 07-23-2023 End: 83-04-1449sqbukmgace (Neurontin) 100 MG capsule Indications: Acute left- sided back pain with sciatica 2 capsules three times daily as needed for pain 180 capsule 1 07/23/2023 02/25/2024 DiscontinuedlevoFLOXacin 750 mg oral tablet (2 sources)Quinolone AntimicrobialStart: 04-05-2024 End: 92-65-5114uniw 1 tablet by mouth once dailylevoFLOXacin (Levaquin) 750 MG tablet Indications: Acute non-recurrent pansinusitis Take 1 tablet (750 mg) by mouth Daily for 7 days 7 tablet 04/05/2024 04/12/2024 Activelisinopril 20 mg oral tablet (1 source)Angiotensin Converting Enzyme InhibitorStart: 46-17-3539prhy 1 tablet by mouth once dailyLisinopril 20 mg tablet Active 20 MG PO Daily February 20, 2025 11:00pm Complies with drug therapymagnesium oxide 400 mg oral tablet (6 sources)Start: 04-16-2024 End: 12-63-4663bkti 1 tablet by mouth once dailymagnesium oxide (Mag-Ox) 400 MG tablet Indications: Hot flashes Take 1 tablet (400 mg) by mouth Daily 30 tablet 2 04/16/2024 07/15/2024 Activemelatonin 10 mg oral tablet (20 sources)take 1 tablet by mouth at bedtimemelatonin 10 MG tablet Take 1 tablet by mouth at bedtime. Cigtzl92 hr metFORMIN hydrochloride 750 mg extended release oral tablet (20 sources)BiguanideStart: 57-85-1830wcth 1 tablet by mouth every twenty-four hours in the morningmetFORMIN XR (Glucophage-XR) 750 MG 24 hr tablet Indications: Pre-diabetes Take 1 tablet (750 mg) by mouth in the morning and 1 tablet (750 mg) before bedtime. Do not crush, chew, or split.. 60 tablet 05/13/2024 ActiveStart: 03-11-2024 End: 76-74-9219dexb 1 tablet by mouth every twenty-four hours in the morning metFORMIN XR (Glucophage-XR) 500 MG 24 hr tablet Indications: Pre-diabetes Take 1 tablet (500 mg) by mouth in the morning and 1 tablet (500 mg) in the evening. Take with meals. Do not crush, chew, orsplit.. 60 tablet 03/31/2024 04/30/2024 ActiveStart: 07-14-2023 End: 30-41-5095shkj 1 tablet by mouth in the morningmetFORMIN (Glucophage) 500 MG tablet Indications: Glucose intolerance (impaired glucose tolerance) Take 1 tablet (500 mg) by mouth in the morning and 1 tablet (500 mg) in the evening. Take before meals. 60 tablet 07/14/2023 12/16/2023 Discontinued (Therapy completed)Start: 07-14-2023 End: 13-80-6765sziv 1 tablet by mouth in the morningmetFORMIN (Glucophage) 850 MG tablet Indications: Glucose intolerance (impaired glucose tolerance) Take 1 tablet (850 mg) by mouth in the morning and 1 tablet (850 mg) in the evening. Take before meals. 60 tablet 07/14/2023 12/16/2023 Discontinued (Therapy completed)Start: 01-29-2023 End: 86-24-0558cvav 1 tablet by mouth in the morningmetFORMIN (Glucophage) 1000 MG tablet Indications: Glucose intolerance (impaired glucose tolerance)Take 1 tablet (1,000 mg) by mouth in the morning and 1 tablet (1,000 mg) in the evening. Take with meals. 180 tablet 1 01/29/2023 12/16/2023 Discontinued (Therapy completed)methylPREDNISolone (5 sources)CorticosteroidStart: 06-15-2024 End: 68-60-9688vootmwVYDCHUTzysil (Medrol Dospak) 4 MG tablets Indications: Left foot pain Follow schedule on package instructions 21 tablet 06/15/2024 06/22/2024 ActiveStart: 04-17-2024 End: 87-61-1989qmamucKQGCUJFdtfnv (Medrol Dospak) 4 MG tablets Indications: Acute pain of left knee Take as directed on package. 21 tablet 04/17/2024 04/24/2024 Activenebivolol 5 mg oral tablet (1 source)Start: 11-09-2024 End: 65-98-8746bjgx 1 tablet by mouth once dailynebivolol (Bystolic) 5 MG tablet Indications: Palpitations Take 1 tablet (5 mg) by mouth Daily 30 tablet 11/09/2024 12/09/2024 ActiverOPINIRole 1 mg oral tablet (20 sources)Nonergot Dopamine AgonistStart: 23-58-3690vmav 1 tablet by mouth once daily at bedtimeRopinirole 1 mg tablet Active 1 MG PO Daily at bedtime February 01, 2025 11:00pm administer 1-3 hours before bedtime Complies with drug therapyStart: 28-27-5915rEGWFGOqgo (Requip) 1 MG tablet Indications: Restless Leg Syndrome One tablet at bedtime 30 tablet 11/09/2024 ActiveStart: 09-15-2023 End: 57-71-6014mQFFWVQonq (Requip) 0.5 MG tablet Indications: Restless Leg Syndrome One tablet at bedtime 90 tablet 1 08/02/2024 ActiveTirzepatide (1 source)Start: 57-86-8443Wufvempjxzm (Mounjaro) 2.5 mg/0.5 mL pen injector Active 2.5 MG SUBCUT every week 2.5 30 0 2024 12:00am Type 2 diabetes mellitus Type 2 diabetes mellitus without complications for 4 weeks Complies with drug sbtactz20 hr venlafaxine 37.5 mg extended release oral capsule (9 sources)Serotonin and Norepinephrine Reuptake InhibitorStart: 11-03-2023 End: 15-02-1232tidf 1 capsule by mouth once dailyvenlafaxine XR (Effexor XR) 37.5 MG 24 hr capsule Indications: Recurrent major depressive disorder,in partial remission (HCC) (CMS/HCC) Take 1 capsule (37.5 mg) by mouth Daily Do not crush or chew. 30 capsule 12/16/2023 12/25/2023 Discontinued (Side effects) Start: 11-03-2023 End: 12-29-3944zjwr 1 tablet by mouth every twenty-four hours [...] tablet (2 sources)HMG-CoA Reductase InhibitorStart: 03-30-2018 End: 43-40-4434prqg 1 tablet by mouth once daily at bedtimeAtorvastatin 20 mg tablet Discontinued 20 MG PO Daily at bedtime March 30, 2018 12:00am February 02, 2025 7:58am hyperlipidemiadocusate sodium 100 mg oral capsule (2 sources)Start: 04-06-2018 End: 49-95-9072notf 1 capsule by mouth twice daily as needed for constipation Docusate Sodium (Colace) 100 mg capsule Discontinued 100 MG PO Twice daily as needed for constipation 60 1 April 06, 2018 9:46am February 02, 2025 7:58am escitalopram 5 mg oral tablet (4 sources)Serotonin Reuptake InhibitorStart: 12-25-2023 End: 03-48-3059avej 1 tablet by mouth once dailyescitalopram (Lexapro) 5 MG tablet Indications: Recurrent major depressive disorder, in partial remission (HCC) (CMS/HCC) Take 1 tablet (5 mg) by mouth Daily 30 tablet 12/25/2023 02/25/2024 Discontinued (Therapy completed)fluconazole 150 mg oral tablet (4 sources)Azole AntifungalStart: 03-29-2024 End: 03-17-7171yjhl 1 tablet by mouth oncefluconazole (Diflucan) 150 MG tablet Indications: Yeast infection of the skin Take 1 tablet (150 mg) by mouth 1 (one) time for 1 dose 1 tablet 03/29/2024 04/05/2024 Discontinued (Therapy completed) ibuprofen 600 mg oral tablet (2 sources)Nonsteroidal Anti-inflammatory DrugStart: 04-06-2018 End: 25-24-1919fauv 1 tablet by mouth every six hours as needed for pain Ibuprofen 600 mg tablet Discontinued 600 MG PO Q6H as needed for pain 30 April 06, 2018 12:00am February 02, 2025 7:59amliothyronine sodium 0.005 mg oral tablet (1 source)l-Triiodothyronine End: 11-86-4752djhl 1 tablet by mouth once dailyliothyronine (CYTOMEL) 5 mcg tablet Take 5 mcg by mouth once daily. 0 08/01/2022 DiscontinuedComment on above:Take 5 mcg by mouth once daily.losartan potassium 100 mg oral tablet (2 sources)Angiotensin 2 Receptor BlockerStart: 03-30-2018 End: 96-07-5803poby 1 tablet by mouth once daily at bedtimeLosartan 100 mg tablet Discontinued 100 MG PO Daily at bedtime March 30, 2018 12:00am February 02, 2025 7:59am htnmeloxicam 15 mg oral tablet (9 sources)Nonsteroidal Anti-inflammatory DrugStart: 08-01-2022 End: 68-31-2444yeku 1 tablet by mouth once dailymeloxicam (MOBIC) 15 mg tablet Indications: Erosive osteoarthritis of both hands Take 1 tablet by mouth once daily. 30 tablet 2 08/01/2022 10/30/2022 ExpiredStart: 10-14-2019 End: 52-19-7337vbio 1 tablet by mouth once dailymeloxicam (MOBIC) 7.5 mg tablet Take 1 tablet by mouth once daily. Stop all other anti-inflammatories 30 tablet 0 10/14/2019 08/01/2022 Discontinued (Changing Therapy/Dosage Form)Comment on above:Take 1 tablet by mouth once daily.Take 1 tablet by mouth once daily. Stop all other anti-inflammatoriesmetaxalone 800 mg oral tablet (1 source) End: 57-68-9660mnaphkljjh (METAXALL) 800 mg tablet Take 800 mg by mouth as needed. 0 08/01/2022 DiscontinuedComment on above:Take 800 mg by mouth as needed.0.25 mg, 0.5 mg dose 1.5 ml semaglutide 1.34 mg/ml pen injector (3 sources)Start: 02-02-2025 End: 17-42-6909Cuhlkzrdimr (Ozempic) 0.25 mg or 0.5 mg(2 mg/1.5 mL) pen injector Discontinued 0.25 MG SUBCUT everyweek 1.5 0 February 03, 2025 7:14pm March 02, 2025 8:52am Type 2 diabetes mellitus Type 2 diabetes mellitus without complications for 4 weekssertraline 25 mg oral tablet (4 sources)Serotonin Reuptake InhibitorStart: 02-02-2025 End: 22-98-5445ldai 1 tablet by mouth once dailySertraline (Zoloft) 25 mg tablet Discontinued 25 MG PO Daily 30 30 0 February 01, 2025 11:00pm March 02, 2025 8:48am Anxiety with depression Other specified anxiety disordersStart: 03-30-2018 End: 46-68-6446htzu 1 tablet by mouth once daily at bedtimeSertraline 100 mg tablet Discontinued 100 MG PO Daily at bedtime March 30, 2018 12:00am 2024 7:59amVeozah 45 MG tablet (2 sources)Start: 08-18-2024 End: 93-70-4772oshv 1 tablet by mouth once dailyVeozah 45 MG tablet Take 1 tablet by mouth Daily 08/18/2024 09/01/2024 Discontinued (Therapy completed) Problems Active Problems Problem ClassificationProblemDateDocumented DateEpisodic/Chronic Administrative/social admission (2 sources)Advance directive discussed with patient; 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: [Other specified counseling]84-72-3165GrwnidnxPrnnpfp disorders (6 sources)Mixed anxiety and depressive disorder; 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: [Other specified anxiety disorders]39-62-1101OhbqgbqBytcrsy dysrhythmias (11 sources)Palpitations; 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: [Tachycardia]Onset: EpisodicDiabetes mellitus without complication (5 sources)Type 2 diabetes mellitus without complications; 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: [Type 2 diabetes mellitus]Onset: 80-87-5622LtyeznxWlwtrisuu of lipid metabolism (20 sources)Mixed hyperlipidemia; 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: [Mixed hyperlipidemia]Onset: 08-73-1589HmypdmsUmaipzanv hypertension (20 sources)Essential (primary) hypertension; 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: [Hypertensive disorder]Onset: 25-85-4706IbgnqoeJyylfubxijvng symptoms and ill-defined conditions (20 sources)Urge incontinence of urine; 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: [Urge incontinence]Onset: 817595-15-9235VhkbswxBxtoldlbplogr and screening for infectious disease (1 source)Encounter for screening for human papillomavirus (HPV); 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: [ENC SCREENING HUMAN PAPILLOMAVIRUS]Onset: 39-07-4388KppyqhwtUklskrx and fatigue (20 sources)Fatigue; 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: [Chronic fatigue, unspecified]Onset: 121319-89-9565YyescmkLrzkcytmdz disorders (17 sources)Menopausal syndrome; 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: [Menopausal and female climacteric states]Onset: 342354-50-1866BgruhovPxapdnkawylgr mental health disorders (20 sources)Insomnia disorder related to another mental disorder; 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: [Insomnia due to other mental disorder]Onset: 135206-37-1232UdxtlujRpew disorders (20 sources)Recurrent major depression in partial remission; 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: [Major depressive disorder, recurrent, in partial remission]Onset: 09-17-2022 98-38-5812WbytxmfYtdrykh (2 sources)Candidiasis of skin; 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: [Candidiasis of skin and nail] 64-42-4151MmqkuerpAcxwfvqcwkhuax (20 sources)Osteoarthritis of joint of bilateral hands; 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: [Erosive (osteo)arthritis]Onset: 19-82-4097KmwoirmZltew aftercare (3 sources)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; 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: [support clerk (current) use of non-steroidal anti-inflammatories (NSAID)]EpisodicOther connective tissue disease (3 sources)History of total knee arthroplasty; 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: [Presence of unspecified artificial knee joint]Onset: 097050-56-1560KiptucqOfuwl connective tissue disease (2 sources)Pain in left foot; 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: [Pain in left foot]06-15-2024 EpisodicOther diseases of bladder and urethra (20 sources)Overactive bladder; 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: [Overactive bladder]Onset: 071024-63-0799KreskelUjetv female genital disorders (1 source)Other specified noninflammatory disorders of vagina; 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: [OTH SPEC NONINFLAMMATORY D/O VAGINA]Onset: 14-74-7035ZcxwaoqeQehtb hereditary and degenerative nervous system conditions (20 sources)Restless legs; 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: [Restless legs syndrome]Onset: 196717-31-8698AchouxrEqosv liver diseases (1 source)Inflammatory liver disease, unspecified; 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: [INFLAMMATORY LIVER DISEASE UNS]Onset: 79-08-7192IxlydnrIzqab liver diseases (20 sources)Fatty (change of) liver, not elsewhere classified; 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: [Other chronic nonalcoholic liver disease]Onset: 26-49-5732TkxcswuOmwyk liver diseases (7 sources)Steatosis of liver; 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: [Fatty (change of) liver, not elsewhere classified]ChronicOther liver diseases (20 sources)Inflammatory disease of liver; 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: [Inflammatory liver disease, unspecified]Onset: 722866-86-2520BcyfkntGnznj liver diseases (3 sources)Elevated liver enzymes level; 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: [Abnormal levels of other serum enzymes]EpisodicOther liver diseases (3 sources)Abnormal levels of other serum enzymes; 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: [Abnormal levels of other serum enzymes]Onset: 58-37-3022RmydkasjWdwry lower respiratory disease (2 sources)Shortness of breath; 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: [Shortness of breath]Onset: 95-42-5329BtpfxgrrMakfv nervous system disorders (20 sources)Chronic pain; 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: [Other chronic pain]Onset: 09-17-2022 51-13-9308CpzjdxzWmrvn non-traumatic joint disorders (2 sources)Pain in left knee; 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: [Pain in joint, lower leg]04-17-2024 EpisodicOther non-traumatic joint disorders (1 source)Hip pain; 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: [Pain in right hip]13-63-2986SqwkxcodXiiqc nutritional; endocrine; and metabolic disorders (2 sources)Obesity; 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: [Obesity, unspecified]ChronicOther nutritional; endocrine; and metabolic disorders (1 source)Severe obesity; 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: [Morbid (severe) obesity due to excess calories]ChronicOther nutritional; endocrine; and metabolic disorders (20 sources)Morbid obesity; 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: [Morbid (severe) obesity due to excess calories]Onset: 586596-11-9655OitbbuoDadaq nutritional; endocrine; and metabolic disorders (20 sources)Body mass index 40+ - severely obese; 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: [Body mass index (BMI) 45.0-49.9, adult]Onset: 184740-47-4525TckjosoIhnfr screening for suspected conditions (not mental disorders or infectious disease) (13 sources)Encounter for screening mammogram for malignant neoplasm of breast; 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: [Encounter for screening for malignant neoplasm of cervix]Onset: 41-43-2628TorgsowaNybmp upper respiratory infections (2 sources)Acute pansinusitis; 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: [Acute pansinusitis, unspecified] 08-65-4984QwoodictMdtxgicw codes; unclassified (20 sources)Dependence on enabling machine or device; 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: [Dependence on other enabling machines and devices]Onset: hronic Residual codes; unclassified (20 sources)Obstructive sleep apnea syndrome; 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: [Obstructive sleep apnea (adult) (pediatric)]Onset: 040917-44-1790CefztokUunvuiew codes; unclassified (1 source)Acquired absence of other specified parts of digestive tract; 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: [ACQ ABSENCE OTH PART DIGESTV TRACT]Onset: 03-22-1455Fjmzscnq Spondylosis; intervertebral disc disorders; other back problems (2 sources)Low back pain; 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: [Low back pain]25-92-4577JvfalyyoBkstaqd and strains (2 sources)Strain of foot; 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: [Strain of unspecified muscle and tendon at ankle and foot level, left foot, initial encounter]42-11-3451Nhvpmuib Unclassified (1 source)New PatientOnset: 10-30-2022 Past or Other Problems Problem ClassificationProblemDateDocumented DateEpisodic/ChronicDiabetes mellitus without complication (20 sources)Impaired glucose tolerance (oral); 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: [Impaired glucose tolerance]Onset: 10-12-2021 Resolved: 571812-36-9096QmmpwsxsPcjoy female genital disorders (20 sources)Pain in female genitalia on intercourse; 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: [Unspecified dyspareunia]Onset: 09-17-2022 Resolved: 612506-90-6195OenpcgmVweje female genital disorders (20 sources)Disorder of female genital system; 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: [Unspecified condition associated with female genital organs and menstrual cycle]Onset: 09-17-2022 Resolved: 085198-11-7092UcfnwpfoJmggz nervous system disorders (20 sources)Left-sided piriformis syndrome; 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: [Lesion of sciatic nerve, left lower limb]Onset: 09-17-2022 Resolved: 994989-11-2941AwonhsaKppsz non-traumatic joint disorders (3 sources)Pain in right knee; 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: [Pain in joint, lower leg]Onset: 920627-08-9002JziclgmxKmnjldcm codes; unclassified (20 sources)Sleep disorder; 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: [Sleep disorder, unspecified]Onset: 220639-56-7809QutkjmmiFpwykcyp codes; unclassified (15 sources)Flushing; 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: [Flushing]Onset: EpisodicThyroid disorders (20 sources)Sick-euthyroid syndrome; 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: [Sick-euthyroid syndrome] Onset: 293481-21-9987Dxeugose Results Test NameValueInterpretationReference OueeiMbaobtibTaE4e HPLC (Bld) [Mass fraction]Ordered By: Maribeth Galvez on 63-75-9983CkI8z (Bld) [Mass fraction]6.5 %[facility] HospitalOffice Visiton 09-57-8171Jnfolp- up [id number] Naima Hernandez 1970 F Date Provider Department Center 02/16/2025 245-SOURAV SALDANA [facility] Family History Adopted: Yes Problem Relation Age of Onset No Known Problems Mother No Known Problems Father Family Status - Relation Status Age at Mother Father Level of Service:72282 AL OFFICE/OUTPATIENT NEW HIGH MDM 60 MINUTES Reason for Visit and Comments: New Patient [632] - Patient is here today to establish care with cardiology. Patient states she recently had a 30 day holter and a 72 hour holter, along with a stress test. Patient denies chest pain, Hypertension [495869] Hyperlipidemia [182] Shortness of Breath [] - Sob/duarte with and without activity Palpitations [] - Racing heart Fatigue [46] Dizziness [] - Dizziness/lightheaded with position changesNormalUniversity of Memorial Hermann Orthopedic & Spine HospitalNM KIMBERLYN PERF SPECT REST STRon 09-22-[place] [address] Nuclear Medicine Report Signed Patient: NAIMA HERNANDEZ MR#: [id number] : 1970 Acct:[id number] Age/Sex: 54 / F ADM Date: 11/03/24 Loc: [place] Attending Dr: ENRIQUE ALBA Ordering Physician: ENRIQUE ALBA Date of Service: 11/03/24 Procedure(s): NM kmiberlyn perf SPECT rest str Accession Number(s): [id number] cc: ENRIQUE ALBA Patient Name: NAIMA HERNANDEZ MR#: [id number] : 1970 Exam Date: 11/03/2024 Ordering Doctor: [...] the study was pending per attending physician [facility]. For more details, please see separate cardiac [...] Signed By: 11/04/24 1615 DD/ 1614 TD/TT: Cafeteria Server:TBHRadiology, Radiologist, MD - 11/04/2024 [place] [address] Nuclear Medicine Report Signed Patient: NAIMA HERNANDEZ MR#: [id number] : 1970 Acct:[id number] Age/Sex: 54 / F ADM Date: 11/03/24 Loc: [place] Attending Dr: ENRIQUE ALBA Ordering Physician: ENRIQUE ALBA Date of Service: 11/03/24 Procedure(s): NM kimberlyn perf SPECT rest str Accession Number(s): [id number] cc: ENRIQUE ALBA Patient Name: NAIMA HERNANDEZ MR#: [id number] : 1970 Exam Date: 11/03/2024 Ordering Doctor: [...] the study was pending per attending physician [facility]. For more details, please see separate cardiac [...] Signed By: 11/04/24 1615 DD/ 13 TD/TT: Cafeteria Server: MARII [facility] CenterRadiology Study observation (narrative)[facility] KIMBERLYN PERF SPECT REST STROrdered By: Radiologist Radiology on 59-96-4593ZQSRCapital [facility] Work Phone: MLR HEMOGLOBIN A1Con 56-59-3010Ypiubnh [Mass/Vol]166 mg/dLCapital Region Medical CenterHbA1c (Bld) [Mass fraction]7.4 %High4.5 - 6.2 %[facility] CenterComment on above:ADA RECOMMENDED LIMIT 4.0 - 6.0 ADA THERAPEUTIC TARGET < 7.0 ACTION SUGGESTED > 7.0 Interpretation and review of laboratory resultsAbnormalNOSaint Louis University HospitalCLINISYNC [facility] CenterALL CBC WITH AUTO DIFFon 13-54-0787PHVYXDQSB ABSOLUTE YJKJ1EPFXSaint Louis University HospitalBasophils/100 WBC (Bld)0.6 %0.2 - 2.0 %NOMGolden Valley Memorial HospitalEosinophils/100 WBC (Bld)1.8 %0.9 - 7.0 %[facility] CenterErythrocyte distribution width (RBC) [Ratio]13.7 %11.0 - 15.0 %[facility] CenterHematocrit (Bld) [Volume fraction]43.9 %36.0 - 48.0 %[facility] CenterHemoglobin (Bld) [Mass/Vol]14.8 g/dL12.0 - 16.0 g/dLCapital Region Medical CenterIMMATURE GRANULOCYTES ABS AUTO0.02NOSaint Louis University HospitalImmature granulocytes/100 WBC (Bld)0.4 %0.0 - 0.5 %[facility] CenterLYMPHOCYTES ABSOLUTE AUTO1.4NOSaint Louis University HospitalLymphocytes/100 WBC (Bld)26.3 %20.5 - 60.0 %[facility] CenterH (RBC) [Entitic mass]28.1 pg26.7 - 34.0 pgMercy hospital springfield (RBC) [Mass/Vol]33.7 g/dL29.9 - 35.2 g/dLCapital Region Medical CenterMCV (RBC) [Entitic vol]83.3 fL 81.0 - 99.0 fLCapital Region Medical CenterMONOCYTES ABSOLUTE AUTO0.3[facility] Monocytes/100 WBC (Bld)6.2 %1.7 - 12.0 %[facility] CenterNEUTROPHILS ABSOLUTE AUTO 3.3NOMS [facility] Medical CenterNeutrophils/100 WBC (Bld)64.7 %43.0 - 75.0 %[facility] Platelet mean volume (Bld) [Entitic vol]10 fL9.5 - 13.5 fLCapital Region Medical CenterTB EO #0.1NOMS [facility] Medical CenterTB AWV550ATRFSt. Louis VA Medical Center RBC5.27NOSt. Louis VA Medical Center WBC5.1 [facility] CenterCLINISYNCNOMS HealthcareXR Foot - left 3 Viewson 93-22-5684JZUQ: XR FOOT 3+ VIEWS LEFT HISTORY: Pain [...] DA PORTER MD at 16-Jun-2024 09:39:44 AM [facility] Da Vargas MD - 06/16/2024 EXAM: [...] DA PORTER MD at 16-Jun-2024 09:39:44 AM [facility] NOMS HealthcareXR Foot - left 3 ViewsOrdered By: Da Porter on 99-93-4477FUFYCapital Region Medical Center Work Phone: XR FOOT 3+ VIEWS LEFTon 94-88-0725PJ FOOT 3+ VIEWS LEFTEXAM: XR FOOT 3+ [...] DA PORTER MD at 16-Jun-2024 09:39:44 AM [facility]adiologyNormalNot AvailableXR Foot - left 3 Viewson 06-15-2024 Radiology Study observation (narrative)NOMS HealthcareXR Knee - left 3 Viewson 39-54-5145KP KNEE 3 VIEWS LEFT Reason for exam: [...] signed and approved by the interpreting Radiologist. [facility] HealthcareXR Knee - left 3 ViewsOrdered By: Messi Carballo on 38-50-1487UNHWCapital Region Medical Center Work Phone: XR KNEE 3 VIEWS LEFTon 51-38-1012YC KNEE 3 VIEWS LEFT XR KNEE 3 [...] Radiologist.NormalNot AvailableXR Knee - left 3 Viewson 64-91-6377Rekrhrrod Study observation (narrative)NOEL NazarioIMA HPV,AGE GDLNon 04-03-2024 AGE GDLN ACOG TESTINGNote.[facility] HealthcareComment on above:TESTS RESULT FLAG UNITS REF RANGE LAB Clinician Provided Cytology Information Source.............Cervix;Endocervix No. of containers..01 ThinPrep Vial Age Algo ACOG Annabelle... FLAG LEGEND: L-Low Normal,H-High Normal,LL-Alert Low,HH-Alert High <-Panic Low,>-Panic High,A-Abnormal,AA-Critical Abnormal Performed at: 01 =[address] [address] Grace Ramos MD, HPV APTIMANegativeNegativeNOMS HealthcareComment on above:This nucleic acid amplification test detects fourteen high- risk HPV types (16,18,31,33,35,39,45,51,52,56,58,59,66,68) without differentiation. Performed at: =[address] [id number] Sports Cartoonist: Grace Ramos MD, Phone: [phone] Performed at: [address] [id number] Sports Cartoonist: Grace Ramos MD, Phone: [phone] IGP, APTIMA HPV, RFX 16/18,45Note.NOMS HealthcareComment on above:TESTS RESULT FLAG UNITS REF RANGE LAB DIAGNOSIS: 02 NEGATIVE FOR INTRAEPITHELIAL LESION OR MALIGNANCY. Specimen adequacy: 02 Satisfactory for evaluation. Endocervical and/or squamous metaplastic cells (endocervical component) are present. Performed by: Nathalia Ellis, Top And Seat Cover Fitter (ASCP) . 02 Note: Note 02 The [...] High,A-Abnormal,AA-Critical Abnormal Performed at: 02 [address] [facility] [address] [address] Grace Ramos MD, BRUSH-SPATULA CERVIX ENDOCERVIX CLINISYNCNOMA HealthcareALL LIPID PROFILE (FASTING)on 87-76-1169OCUQ HDL RATIO 4.5NOMA HealthcareComment on above:3.3 - 4.4 LOW RISK 4.4 - 7.1 AVERAGE RISK 7.1 - 11.0 MODERATE RISK >11.0 HIGH RISK Cholesterol [Mass/Vol]232 mg/dLHighNINF - 200 mg/dLNOSaint Louis University HospitalCholesterol in HDL [Mass/Vol]51 mg/dL40 - 60 mg/dLNOMA HealthcareComment on above:> or =60 mg/dl - LOW CARDIOVASCULAR RISK <40 mg/dl - HIGH CARDIOVASCULAR RISK Magnesium [Mass/Vol]122 mg/dLNOMA HealthcareComment on above:<100 mg/dl OPTIMAL 100-129 mg/dl NEAR OR ABOVE OPTIMAL 130-159 mg/dl BORDERLINE HIGH 160-189 mg/dl HIGH >190 mg/dl VERY HIGH Magnesium [Mass/Vol]59.2 mg/dLNOMA HealthcareTriglyceride [Mass/Vol]296 mg/dL HighNINF - 150 mg/dLNOSaint Louis University HospitalCCF CMP (CMP) (FOR REMOTE [facility] USE)on 17-92-8393Chhctsi [Mass/Vol]3.9 g/dL3.4 - 5.0 g/dLNOMA HealthcareALBUMIN GLOBULIN RATIO1.1NOMS HealthcareALP [Catalytic activity/Vol]102 U/L46 - 116 U/L NOMS HealthcareALT [Catalytic activity/Vol]153 U/LHigh14 - 59 U/LNOMS Healthcare Anion gap [Moles/Vol]14.3 mmol/LNOMS HealthcareAST [Catalytic activity/Vol]98 U/LHigh15 - 37 U/LNOMS HealthcareBilirubin [Mass/Vol]0.4 mg/dL0.2 - 1.0 mg/dL [facility] HealthcareCalcium [Mass/Vol]8.4 mg/dLLow8.5 - 10.1 mg/dLNOMA Healthcare Chloride [Moles/Vol]105 mmol/L98 - 107 mmol/LNOMS HealthcareCO2 [Moles/Vol]29.7 mmol/L21.0 - 32.0 mmol/LNOMS HealthcareCreatinine [Mass/Vol]0.98 mg/dL0.55 - 1.02 mg/dLNOMA HealthcareGFR/1.73 sq M.predicted CKD-EPI (S/P/Bld) [Vol rate/Area]>60>=60 mL/min/1.73m 2NOMS HealthcareGlobulin (S) [Mass/Vol]3.6 g/dL [facility] HealthcareGlucose [Mass/Vol]112 mg/gKRkmz48 - 106 mg/dLNOSaint Louis University Hospital Potassium [Moles/Vol]4 mmol/L3.5 - 5.1 mmol/LNOMS HealthcareProtein [Mass/Vol] 7.5 g/dL6.4 - 8.2 g/dLNOSaint Louis University HospitalSodium [Moles/Vol]145 mmol/L136 - 145 mmol/LNOMS HealthcareTBH EGFR-NON AF GDYMYJOI38Xry>=60 mL/min/1.73m 2NOMS HealthcareUrea nitrogen [Mass/Vol]13 mg/dL7.0 - 18.0 mg/dLNOSaint Louis University HospitalUrea nitrogen/Creatinine [Mass ratio]13.3 mg/mgNOSaint Louis University HospitalMM TOMOSYNTHESIS SCREENING BIon 71-86-2698JksF[place] [address] Mammography Report Signed Patient: Naima Hernandez MR#: [id number] : 1970 Acct:[id number] Age/Sex: 53 / F ADM Date: 03/05/24 Loc: MAMMO Attending Dr: ENRIQUE ALBA Ordering Physician: ENRIQUE ALBA Results: Date of Service: 03/05/24 Follow Up: Procedure(s): MM tomosynthesis screening BI Accession Number(s): [id number] cc: ENRIQUE ALBA Patient Name: NAIMA HERNANDEZ MR#: [id number] : 1970 Exam Date: 03/05/2024 Ordering Doctor: [...] Treatments None Family Cancers None LOCATION: [facility] BREAST COMPOSITION: There are scattered areas of [...] Signed By: 03/05/24 1105 DD/ 1104 TD/TT: Cafeteria Server:TBHRadiology, Radiologist, MD - 03/05/2024 [place] [address] Mammography Report Signed Patient: Naima Hernandez MR#: [id number] : 1970 Acct:[id number] Age/Sex: 53 / F ADM Date: 03/05/24 Loc: MAMMO Attending Dr: ENRIQUE ALBA Ordering Physician: ENRIQUE ALBA Results: Date of Service: 03/05/24 Follow Up: Procedure(s): MM tomosynthesis screening BI Accession Number(s): [id number] cc: ENRIQUE ALBA Patient Name: NAIMA HERNANDEZ MR#: [id number] : 1970 Exam Date: 03/05/2024 Ordering Doctor: [...] Treatments None Family Cancers None LOCATION: [facility] BREAST COMPOSITION: There are scattered areas of [...] Signed By: 03/05/24 1105 DD/ 1104 TD/TT: Cafeteria Server: MARII [facility] Medical CenterRadiology Study observation (narrative)[facility] TOMOSYNTHESIS SCREENING BIOrdered By: Radiologist Radiology on 63-01-7912SGBNCapital Region Medical Center Work Phone: No Panel Informationon 68-01-4018Guxictcenpsdqj and review of laboratory resultsAbnormalNOSaint Louis University HospitalCLINISYNCNCOMMUNITY H[facility] HealthcareXR DEXA AXIAL SKELETONon 50-78-6419[address] [address] XRay Report Signed Patient: Naima Hernandez MR#: [id number] : 1970 Acct:[id number] Age/Sex: 53 / F ADM Date: 03/05/24 Loc: MAMMO Attending Dr: ENRIQUE ALBA Ordering Physician: ENRIQUE ALBA Date of Service: 03/05/24 Procedure(s): XR DEXA axial skeleton Accession Number(s): [id number] cc: ENRIQUE ALBA [address] [address] Patient Name: NAIMA HERNANDEZ MRN: [id number] date: 1970 Sex: F Assigned Patient Location: MAMMO Current Patient Location: [facility] Accession/Order Number: [id number] Exam Date: 03/05/2024 07:00 Report Date: 03/05/2024 [...] prevention and treatment of osteoporosis. Osteoporos Int. 2021;33(10):7765-3862. doi: 10.1007/a28421-853-94690-d. Epub 2021Aug 23. Erratum in: Osteoporos Int. 2021Nov 22;: PMID: 45262497; PMCID: [id number]. Electronically authenticated by: MILA STARKS Date: 03/05/2024 07:37 Dictated By: Mila Starks M.D. Signed By: 03/05/24 0739 DD/ 0737 TD/TT: Cafeteria Server:TBHRadiology, Radiologist, - 03/05/2024 [place] [address] XRay Report Signed Patient: Naima Hernandez MR#: [id number] : 1970 Acct:[id number] Age/Sex: 53 / F ADM Date: 03/05/24 Loc: MAMMO Attending Dr: ENRIQUE ALBA Ordering Physician: ENRIQUE ALBA Date of Service: 03/05/24 Procedure(s): XR DEXA axial skeleton Accession Number(s): [id number] cc: ENRIQUE ALBA [place] [address] Patient Name: NAIMA HERNANDEZ MRN: [facility]:[id number] date: 1970 Sex: F Assigned Patient Location: [facility] Current Patient Location: [facility] Accession/Order Number: [id number] Exam Date: 03/05/2024 07:00 Report Date: 03/05/2024 [...] prevention and treatment of osteoporosis. Osteoporos Int. 2021;33(10):8190-4324. doi: 10.1007/q73204-146-70621-j. Epub 2021Aug 23. Erratum in: Osteoporos Int. 2021Nov 22;: PMID: 56980372; PMCID: [id number]. Electronically authenticated by: MILA STARKS Date: 03/05/2024 07:37 Dictated By: Mila Starks M.D. Signed By: 03/05/24738 DD/ 6 TD/TT: Cafeteria Server: MARII HealthcareRadiology Study observation (narrative)[facility] CenterXR DEXA AXIAL SKELETONOrdered By: Radiologist Radiology on 44-18-3343HCEM [employer] Work Phone: cNOVon 60-85-8368RWIJHzqciu Visit (GASTAV) NAIMA HERNANDEZ ([id number]) 1970 F Date Time Provider Department 10/30/22 1:00 PM RADHA ABDUL During your visit today, we recorded the following information about you: Weight Height 120.2 kg 1.6 m Radha Richey MD 10/30/2022 2:34 PM Signed Hepatology Clinic Mindy Richey MD, FACG, FAASLD Director, [facility] Hepatology [facility] Consult Requested By: Mike Salgado [address] [facility] [address] for evaluation of her fatty liver .. [...] no edema no spiders no palmar erythema LINING FELLER BLINDSTITCH no asterixis , a+0 X3 Glucose Date [...] Radha Richey MD Consider seeing me at [facility] on a Thank you again for your kind referral. Please feel free to contact me if I can be of further assistance to you {I spent 45 minutes in the visit, with more than 50% of the total qakk-yi-vjwi time of the visit in counseling / coordination of care. Referring Provider: MIKE SALGADO [[id number]] Allergies As of Date: 10/30/2022 (No Known Allergies) Date Reviewed: 10/30/2022 Reviewed by: RIVER Stuart - Fully Assessed Reason for Visit: New Patient [172] Cmt: Consult for fatty liver Primary Visit Diagnosis:Fatty liver [K76.0] Other Visit Diagnosis:Class 3 severe obesity due to excess calories in adult, unspecified BMI, unspecified whether serious comorbidity present (HCC) [E66.01] Order(s):CELIAC SCREEN WITH REFLEX [SQCELSCR] Order #: [id number] FUTURE HEPATITIS A ANTIBODY, IGG [SQAHAVG] Order #: [id number] FUTURE (more content not included)...NormalBellevue HospitalOVon 41-73-9359ENLMStogpd Visit (RHEUAV) NAIMA HERNANDEZ ([id number]) 1970 F Date Time Provider Department 08/01/22 3:00 PM MARIAJOSE STALLWORTH During your visit today, we recorded the following information about you: Pulse Blood pressure 101/minute 177/81 Mariajose Stallworth MD 08/01/2022 3:52 PM Signed Rheumatology Outpatient Clinic Date of Service: 08/01/2022 Patient: Naima Hernandez Medical Record: [id number] Primary Care Physician: Zeferino Flores Last Rheumatology visit: None at [facility] History of Present Illness Naima Hernandez [...] , low transverse COLONOSCOP W/ OR W/O [facility] SPEC Colonoscopy EGD EXTRACTION, ERUPTED TOOTH OR EXPOSED ROOT (ELEVATION AND/OR FORCEPS REMOVAL) KNEE SCOPE,MENISECTOMY,MED OR LAT Bilateral Family History No family history on file. Social History Social History Tobacco Use Smoking status: Never Smokeless tobacco: Never Substance Use Topics Alcohol use: No Drug use: No C (more content not included)...NormalG[facility]beigh Hospital Clekettering health main campusAmmoniaon 78-56-1580Irvkhon (P) [Moles/Vol]19 umol/GDytjym75-52VjdwqlrjpSelect Medical Ohiohealth Rehabilitation HospitalComment on above:Order Comment: Reason for Exam Elevated liver enzymes;Fatty liverResult Comment: PERFORMED BY: [place] [address] PATHOLOGIST CUSTOMER FACILITIES SUPERVISOR DAGMAR CANO M.D.Performed By: #### CBC, CMP, AMM, ADAL, PT, LIPID #### [place] [address] USAComplete Blood Count Auto Diffon 63-26-2813Tgxibtrdc (Bld) [#/Vol]0.0 10*3/uLNormal0.0-0.2FMercy Health St. Anne HospitalComment on above:Order Comment: Reason for Exam Elevated liver enzymes;Fatty liverResult Comment: PERFORMED BY: [place] [address] PATHOLOGIST CUSTOMER FACILITIES SUPERVISOR DAGMAR CANO M.D.Performed By: #### CBC, CMP, AMM, ADAL, PT, LIPID #### [facility] [address] [place] [address] USABasophils/100 WBC (Bld)0.4 %Normal.[facility] Rehabilitation HospitalComment on above:Order Comment: Reason for Exam Elevated liver enzymes;Fatty liverPerformed By: #### CBC, CMP, AMM, ADAL, PT, LIPID #### [address] [address] USAEosinophils (Bld) [#/Vol]0.1 10*3/uLNormal0.0-0.45 [facility] HospitalComment on above:Order Comment: Reason for Exam Elevated liver enzymes;Fatty liverPerformed By: #### CBC, CMP, AMM, ADAL, PT, LIPID #### [facility] [address] [place] [address] USAEosinophils/100 WBC (Bld)1.1 %Normal.[facility] Rehabilitation HospitalComment on above:Order Comment: Reason for Exam Elevated liver enzymes;Fatty liverPerformed By: #### CBC, CMP, AMM, ADAL, PT, LIPID #### [facility] [address] [place] [address] USAErythrocyte distribution width (RBC) [Ratio]14.6 %Normal 11.9-15.3FMercy Health St. Anne HospitalComment on above:Order Comment: Reason for Exam Elevated liver enzymes;Fatty liverPerformed By: #### CBC, CMP, AMM, ADAL, PT, LIPID #### [place] [address] USAHematocrit (Bld) [Volume fraction]45.3 %Dtmong46.0-46.4 [facility] HospitalComment on above:Order Comment: Reason for Exam Elevated liver enzymes;Fatty liverPerformed By: #### CBC, CMP, AMM, ADAL, PT, LIPID #### [place] [address] USAHemoglobin (Bld) [Mass/Vol]15.2 g/vVYfhutj54.8-15.4 [facility] HospitalComment on above:Order Comment: Reason for Exam Elevated liver enzymes;Fatty liverPerformed By: #### CBC, CMP, AMM, ADAL, PT, LIPID #### [facility] [address] [place] [address] USALymphocytes (Bld) [#/Vol]1.6 10*3/uLNormal1.00-4.8 [facility] HospitalComment on above:Order Comment: Reason for Exam Elevated liver enzymes;Fatty liverPerformed By: #### CBC, CMP, AMM, ADAL, PT, LIPID #### [facility] [address] [place] [address] USALymphocytes/100 WBC (Bld)26.9 %Normal.[facility] HospitalComment on above:Order Comment: Reason for Exam Elevated liver enzymes;Fatty liverPerformed By: #### CBC, CMP, AMM, ADAL, PT, LIPID #### [facility] [address] StreetH (RBC) [Entitic mass]27.3 reAkakhu27.7-34.3FMercy Health St. Anne HospitalComment on above:Order Comment: Reason for Exam Elevated liver enzymes;Fatty liverPerformed By: #### CBC, CMP, AMM, ADAL, PT, LIPID #### [address] StreetV (RBC) [Entitic vol]81.5 xYFuvzfa77-305FpnfzpdamSelect Medical Ohiohealth Rehabilitation HospitalComment on above:Order Comment: Reason for Exam Elevated liver enzymes;Fatty liverPerformed By: #### CBC, CMP, AMM, ADAL, PT, LIPID #### [place] [address] USAMean Corpuscular HGB Conc33.5 g/wQYtfkhs19.0-35.0[facility] HospitalComment on above:Order Comment: Reason for Exam Elevated liver enzymes;Fatty liverPerformed By: #### CBC, CMP, AMM, ADAL, PT, LIPID #### [place] [address] USAMonocytes (Bld) [#/Vol]0.4 10*3/uLNormal0.0-0.8[facility] HospitalComment on above:Order Comment: Reason for Exam Elevated liver enzymes;Fatty liverPerformed By: #### CBC, CMP, AMM, ADAL, PT, LIPID #### [place] [address] USAMonocytes/100 WBC (Bld)6.3 %Normal.[facility] HospitalComment on above:Order Comment: Reason for Exam Elevated liver enzymes;Fatty liverPerformed By: #### CBC, CMP, AMM, ADAL, PT, LIPID #### [facility] [address] [place] [id number] USANeutrophils (Bld) [#/Vol]3.9 10*3/uLNormal1.8-7.7FMercy Health St. Anne HospitalComment on above:Order Comment: Reason for Exam Elevated liver enzymes;Fatty liverPerformed By: #### CBC, CMP, AMM, ADAL, PT, LIPID #### [facility] [address] [place] [address] USANeutrophils/100 WBC (Bld)65.3 %Normal.[facility] HospitalComment on above:Order Comment: Reason for Exam Elevated liver enzymes;Fatty liverPerformed By: #### CBC, CMP, AMM, ADAL, PT, LIPID #### [facility] [address] [place] [address] USANucleated RBC/100 WBC (Bld) [Ratio]0.2 %Normal0-0.5 [facility] HospitalComveterans affairs medical center on above:Order Comment: Reason for Exam Elevated liver enzymes;Fatty liverPerformed By: #### CBC, CMP, AMM, ADAL, PT, LIPID #### [facility] [address] [place] [address] USAPlatelet mean volume (Bld) [Entitic vol]8.2 fLNormal 6.3-10.7FMercy Health St. Anne HospitalComveterans affairs medical center on above:Order Comment: Reason for Exam Elevated liver enzymes;Fatty liverPerformed By: #### CBC, CMP, AMM, ADAL, PT, LIPID #### [facility] [address] [place] [address] USAPlatelets (Bld) [#/Vol]282 10*3/kVZgdzep751-133GympmudmxSelect Medical Ohiohealth Rehabilitation HospitalComveterans affairs medical center on above:Order Comment: Reason for Exam Elevated liver enzymes;Fatty liverPerformed By: #### CBC, CMP, AMM, ADAL, PT, LIPID #### [facility] [address] [place] [address] USARBC (Bld) [#/Vol]5.56 10*6/uLHigh3.60-5.00[facility] HospitalComment on above:Order Comment: Reason for Exam Elevated liver enzymes;Fatty liverPerformed By: #### CBC, CMP, AMM, ADAL, PT, LIPID #### [facility] [address] [place] [address] USAWBC (Bld) [#/Vol]5.9 10*3/uLNormal4.5-11.0[facility] HospitalComment on above:Order Comment: Reason for Exam Elevated liver enzymes;Fatty liverPerformed By: #### CBC, CMP, AMM, ADAL, PT, LIPID #### [facility] [address] [place] [address] USAComprehensive Metabolic Panelon 87-71-4282Ggmwhhb [Mass/Vol]4.4 g/dLNormal3.2-5.5FMercy Health St. Anne HospitalComment on above:Order Comment: Reason for Exam Elevated liver enzymes;Fatty liverPerformed By: #### CBC, CMP, AMM, ADAL, PT, LIPID #### [place] [address] USAAlbumin/Globulin [Mass ratio]1.6 {ratio}NormalSelect Medical Ohiohealth Rehabilitation HospitalComment on above:Order Comment: Reason for Exam Elevated liver enzymes;Fatty liverPerformed By: #### CBC, CMP, AMM, ADAL, PT, LIPID #### [facility] [address] [place] [address] USAALP [Catalytic activity/Vol]75 U/KYslkzg89-33HughgyjhdSelect Medical Ohiohealth Rehabilitation HospitalComment on above:Order Comment: Reason for Exam Elevated liver enzymes;Fatty liverPerformed By: #### CBC, CMP, AMM, ADAL, PT, LIPID #### [facility] [address] [place] [address] USAALT [Catalytic activity/Vol]71 U/MIhkg18-57OknlzfjcySelect Medical Ohiohealth Rehabilitation HospitalComment on above:Order Comment: Reason for Exam Elevated liver enzymes;Fatty liverPerformed By: #### CBC, CMP, AMM, ADAL, PT, LIPID #### [facility] [address] [place] [address] USAAnion gap [Moles/Vol]11.4 mmol/LNormal6.0-15.0[facility] HospitalComment on above:Order Comment: Reason for Exam Elevated liver enzymes;Fatty liverPerformed By: #### CBC, CMP, AMM, ADAL, PT, LIPID #### [facility] [address] [place] [address] USAAST [Catalytic activity/Vol]51 U/CKmkh74-67WopcztwmzSelect Medical Ohiohealth Rehabilitation HospitalComment on above:Order Comment: Reason for Exam Elevated liver enzymes;Fatty liverPerformed By: #### CBC, CMP, AMM, ADAL, PT, LIPID #### [facility] [address] [place] [address] USABilirubin [Mass/Vol]0.7 mg/dLNormal0.3-1.2FMercy Health St. Anne HospitalComment on above:Order Comment: Reason for Exam Elevated liver enzymes;Fatty liverPerformed By: #### CBC, CMP, AMM, ADAL, PT, LIPID #### [facility] [address] [place] [address] USACalcium [Mass/Vol]9.3 mg/dLNormal8.2-10.2FMercy Health St. Anne HospitalComment on above:Order Comment: Reason for Exam Elevated liver enzymes;Fatty liverPerformed By: #### CBC, CMP, AMM, ADAL, PT, LIPID #### [facility] [address] [place] [address] USAChloride [Moles/Vol]102 mmol/QIwfsyq02-932SgdzbqisvSelect Medical Ohiohealth Rehabilitation HospitalComment on above:Order Comment: Reason for Exam Elevated liver enzymes;Fatty liverPerformed By: #### CBC, CMP, AMM, ADAL, PT, LIPID #### [facility] [address] [place] [address] USACO2 [Moles/Vol]25.6 mmol/IUbjeos29.0-30.0[facility] HospitalComment on above:Order Comment: Reason for Exam Elevated liver enzymes;Fatty liverPerformed By: #### CBC, CMP, AMM, ADAL, PT, LIPID #### [facility] [address] [place] [address] USACreatinine [Mass/Vol]0.78 mg/dLNormal0.44-1.03[facility] HospitalComment on above:Order Comment: Reason for Exam Elevated liver enzymes;Fatty liverPerformed By: #### CBC, CMP, AMM, ADAL, PT, LIPID #### [facility] [address] [place] [id number] USAEstimated GFR ( Daphne> 60NormMetroHealth Parma Medical CenterComment on above:Order Comment: Reason for Exam Elevated liver enzymes;Fatty liverResult Comment: GFR estimated reference range: According to KDOQI guidelines, <60 ml/min/1.73m2 is sufficient to diagnose a patient with chronic kidney disease.Performed By: #### CBC, CMP, AMM, ADAL, PT, LIPID #### [facility] [address] [place] [id number] USAEstimated GFR (Non- Am> 60NoLima City HospitalComment on above:Order Comment: Reason for Exam Elevated liver enzymes;Fatty liverPerformed By: #### CBC, CMP, AMM, ADAL, PT, LIPID #### [facility] [address] [id number] USAGlobulin (S) [Mass/Vol]2.7 g/dLNoLima City HospitalComment on above:Order Comment: Reason for Exam Elevated liver enzymes;Fatty liverPerformed By: #### CBC, CMP, AMM, ADAL, PT, LIPID #### [facility] [address] [id number] USAGlucose [Mass/Vol]96 mg/oXHeoycm92-217IvzuewxmsSelect Medical [facility] Rehabilitation HospitalComment on above:Order Comment: Reason for Exam Elevated liver enzymes;Fatty liverResult Comment: Random Glucose Reference Range is dependent on time and content of last meal. Glucose of more than 200 mg/dL in a nonstressed, ambulatory subject supports the diagnosis of Diabetes Mellitus. ADA recommended reference rangePerformed By: #### CBC, CMP, AMM, ADAL, PT, LIPID #### [facility] [address] [id number] USAPotassium [Moles/Vol]4.0 mmol/LNormal3.5-5.1FMercy Health St. Anne HospitalComment on above:Order Comment: Reason for Exam Elevated liver enzymes;Fatty liverPerformed By: #### CBC, CMP, AMM, ADAL, PT, LIPID #### [facility] [address] [place] [address] USAProtein [Mass/Vol]7.1 g/dLNormal6.1-7.9[facility] HospitalComment on above:Order Comment: Reason for Exam Elevated liver enzymes;Fatty liverPerformed By: #### CBC, CMP, AMM, ADAL, PT, LIPID #### [facility] [address] [place] [address] USASodium [Moles/Vol]135 mmol/DZzd734-221HwnmhrlilSelect Medical [facility] Rehabilitation HospitalComment on above:Order Comment: Reason for Exam Elevated liver enzymes;Fatty liverPerformed By: #### CBC, CMP, AMM, ADAL, PT, LIPID #### [facility] [address] [place] [address] USAUrea nitrogen [Mass/Vol]11 mg/dLNormal9-23[facility] HospitalComment on above:Order Comment: Reason for Exam Elevated liver enzymes;Fatty liverPerformed By: #### CBC, CMP, AMM, ADAL, PT, LIPID #### [facility] [address] [place] [address] USAFerritinon 28-20-2565Nyigrwuk [Mass/Vol]127.6 ng/mLNormal 11-306.8[facility] HospitalComment on above:Order Comment: Reason for Exam Elevated liver enzymes;Fatty liverPerformed By: #### CBC, CMP, AMM, ADAL, PT, LIPID #### [facility] [address] [place] [address] USALipid Panelon 91-63-3262Axrknyfenmr [Mass/Vol]226 mg/dL Llcv116-203LidcingjiSelect Medical Ohiohealth Rehabilitation HospitalComment on above:Order Comment: Reason for Exam Elevated liver enzymes;Fatty liverResult Comment: Chol less than 200 mg/dl low risk Chol 201-239 mg/dl borderline risk Chol 240 mg/dl and greater high riskPerformed By: #### CBC, CMP, AMM, ADAL, PT, LIPID #### [facility] [address] [place] [address] USACholesterol in HDL [Mass/Vol]50 mg/rRRmelwn57-31NnxqipameSelect Medical Ohiohealth Rehabilitation HospitalComment on above:Order Comment: Reason for Exam Elevated liver enzymes;Fatty liverResult Comment: HDL CHOL ATP-III CLASSIFICATION Cardiovascular Risk HDL > or equal to 60 mg/dL LOW HDL < 40 mg/dL HIGHPerformed By: #### CBC, CMP, AMM, ADAL, PT, LIPID #### [facility] [address] [place] [address] USACholesterol.total/Cholesterol in HDL [Mass ratio]4.5 {ratio}Normal<5.0[facility] HospitalComment on above:Order Comment: Reason for Exam Elevated liver enzymes;Fatty liverResult Comment: PERFORMED BY: [place] [address] PATHOLOGIST CUSTOMER FACILITIES SUPERVISOR DAGMAR CANO M.D.Performed By: #### CBC, CMP, AMM, ADAL, PT, LIPID #### [facility] [address] [place] [address] USALDL Cholesterol,Shtlvdagje867 mg/dLHigh0-100[facility] HospitalComment on above:Order Comment: Reason for Exam Elevated liver enzymes;Fatty liverResult Comment: LDL ATP III CLASSIFICATION LDL less than 100 mg/dL Optimal LDL 100-129 mg/dL Near or above optimal LDL 130-159 mg/dL Borderline high LDL 160-189 mg/dL High LDL greater than 189 mg/dL Very highPerformed By: #### CBC, CMP, AMM, ADAL, PT, LIPID #### [facility] [address] [place] [address] USATriglyceride w/Nsfjtw144 mg/ePWxxp58-690JbtwyugbrSelect Medical Ohiohealth Rehabilitation HospitalComment on above:Order Comment: Reason for Exam Elevated liver enzymes;Fatty liverResult Comment: TRIG ATP III CLASSIFICATION TRIG less than 150 mg/dL Normal TRIG 150-199 mg/dL Borderline high TRIG 200-500 mg/dL High TRIG greater than 500 mg/dL Very high Standard traceable to the Center for Disease Conrtrol and Prevention (CDC) test method.Performed By: #### CBC, CMP, AMM, ADAL, PT, LIPID #### [facility] [address] [place] [address] USAVLDL SMPBIOHDGQT32 mg/dLNormalSelect Medical Ohiohealth Rehabilitation HospitalComment on above:Order Comment: Reason for Exam Elevated liver enzymes;Fatty liverPerformed By: #### CBC, CMP, AMM, ADAL, PT, LIPID #### [facility] [address] [place] [address] USAProthrombin Time INRon [id number] Coag (PPP) [Relative time]1.1 {INR}NormalSelect Medical Ohiohealth Rehabilitation HospitalComment on above:Order Comment: Reason for Exam [...] heart valves: 3 - 4.5 PERFORMED BY: [place] [address] PATHOLOGIST CUSTOMER FACILITIES SUPERVISOR DAGMAR CANO M.D.Performed By: #### CBC, CMP, AMM, ADAL, PT, LIPID #### [facility] [address] [place] [address] USAPT Coag (PPP) [Time]12.1 sNormal9.0-12.9[facility] HospitalComment on above:Order Comment: Reason for Exam Elevated liver enzymes;Fatty liverPerformed By: #### CBC, CMP, AMM, ADAL, PT, LIPID #### [facility] [address] [place] [address] USAMG MAMM SCREEN 3D ENMANUEL CADon [id number] MAMM SCREEN 3D ENMANUEL CADPatient: HERNANDEZNAIMA Exam Date: 11/05/2021 : 1970 Gender:F Ordering : DR OSCAR NAVARRO . Admission #: [id number] Family : Order #: [id number] CLICK HERE TO VIEW EXAM RADIOLOGY REPORT PROCEDURE: MAMMOGRAM SCREENING 3D BILATERAL CAD COMPARISON: MG MAMM SCREEN ENMANUEL W CAD, 05/14/2019. MAMMO ENMANUEL SCREEN, 07/12/2020. INDICATIONS: Screening mammography Calculator Name NCI Breast Cancer Risk Assessment Tool 5 Year Breast Cancer Risk 1.60% Lifetime Breast Cancer Risk 14.00% Personal Breast Cancer No Personal Ovarian Cancer No Treatments None Family Cancers None LOCATION: [facility] BREAST COMPOSITION: Scattered areas fibroglandular density. FINDINGS: [...] by: Montrell Romeo MD on 11/05/2021 at 10:43Aultman HospitalOG PANEL 2: 30 to 65on 11-05-2021..NormalThe [facility] Medical CenterComveterans affairs medical center on above:Result Comment: Performed at: WBPerformed By: #### [id number] #### [facility] [address] [place] [address] Dr. Peg Alexander Gdln ACOG Slzpezt43-41FwikuaHzvParma Community General HospitalComment on above:Performed By: #### [id number] #### [facility] [address] [place] [address] Dr. Peg ShelbyDIAGNOSIS:CommentMercy Health St. [facility] on above: Result Comment: NEGATIVE FOR INTRAEPITHELIAL LESION OR MALIGNANCY. Performed at: WBPerformed By: #### [id number] #### [facility] [address] [place] [address] Dr. Peg ShelbyHPV AptimaNegativeNormalNegativeLima Memorial HospitalComveterans affairs medical center on above:Result Comment: This nucleic acid amplification test detects fourteen high-risk HPV types (16,18,31,33,35,39,45,51,52,56,58,59,66,68) without differentiation. Performed at: =GPerformed By: #### [id number] #### [facility] [address] [place] [address] Dr. Peg ShelbyMethrobertology:CommentMercy Health St. Elizabeth [facility]man Hospital on above: Result Comment: This liquid based ThinPrep(R) pap test was screened with the use of an image guided system. Performed at: WBPerformed By: #### [id number] #### [facility] [address] [place] [address] Dr. Peg ShelbyNote:CommentNoTriHealth McCull[facility] on above:Result Comment: The Pap smear is a screening test designed to aid in the detection of premalignant and malignant conditions of the uterine cervix. It is not a diagnostic procedure and should not be used as the sole means of detecting cervical cancer. Both false-positive and false-negative reports do occur. . Performed at: WBPerformed By: #### [id number] #### [address] [place] [address] Dr[address] Peg ShelbyPerformed by:CommentNoTriHealth McCullough-Hyde Memorial Hospital on above: Result Comment: Janey Gonzalez, Top And Seat Cover Fitter (ASCP) Performed at: WBPerformed By: #### [id number] #### [place] [address] Dr. Peg ShelbySpecimeperez adequacy:CommentMercy Health St. Elizabeth [facility]man Hospital on above:Result Comment: Satisfactory for evaluation. Endocervical and/or squamous metaplastic cells (endocervical component) are present. Performed at: WBPerformed By: #### [id number] #### [facility] [address] [place] [address] Dr. Peg ShelbyVAGINITIS/VAGINOSIS DNA PROBEon 80-31-0260Ylzrccf speciesNegative NormalNegativeTrinity Health System [facility] Campus on above:Performed By: #### VAGINT #### [address] [place] [address] Dr[address] Peg Eliaslllydia vaginalisPositiveAbnormalNegativeThe [facility] CenterComveterans affairs medical center on above:Performed By: #### VAGINT #### [facility] [address] [address] [address] Peg Rosahomonas vaginalisNegativeNormalNegativeLima Memorial Hospital Comment on above:Performed By: #### VAGINT #### [facility] [address] [place], [place] [address] Dr. Peg Serna SINGLE QUAD RT UPPERon [id number] SINGLE QUAD RT UPPEREXAM: Ultrasound of the [...] Electronically authenticated by: MONTRELL WU Date: 2021-10-16 07:39[facility] Community HospitalLIPID PROFILEon 14-85-8486FPRF-HDL RATIO NORMSEE BELOWHocking Valley Community HospitalComment on above:Result Comment: 3.3 - 4.4 LOW RISK 4.4 - 7.1 AVERAGE RISK 7.1 - 11.0 MODERATE RISK >11.0 HIGH RISKPerformed By: #### LIPID, CMP #### [facility] [address] [address] [address] Peg ShelbyCholesterol [Mass/Vol]235 mg/dLCritically high<=200The [facility] CenterComment on above:Performed By: #### LIPID, CMP #### [facility] [address] [place], [place] [address] Dr. Peg ShelbyCholesterol in HDL [Mass/Vol]42 mg/pIEupems58-28Tii [facility] CenterComment on above:Performed By: #### LIPID, CMP #### [facility] [address] [place] [address] Dr. Peg ShelbyCholesterol in LDL [Mass/Vol]139.8 mg/dLHocking Valley Community HospitalComveterans affairs medical center on above:Performed By: #### LIPID, CMP #### [facility] [address] [place] [address] Dr. Peg Brookeesteran.total/Cholesterol in HDL [Mass ratio]5.6 {ratio} NormalThe [facility] Medical CenterComveterans affairs medical center on above:Performed By: #### LIPID, CMP #### [facility] [address] [place] [address] Dr. Peg Munson NORMAL> or = 60 mg/dl - LOW CARDIOVASCULAR RISK <40 mg/dl - HIGH CARDIOVASCULAR RISKHocking Valley Community HospitalComveterans affairs medical center on above:Performed By: #### LIPID, CMP #### [facility] [address] [place] [address] Dr. Peg Rivera CALC NORMALSEE BELOWHocking Valley Community HospitalComment on above:Result Comment: <100 mg/dl OPTIMAL 100 - 129 mg/dl NEAR OR ABOVE OPTIMAL 130 - 159 mg/dl BORDERLINE HIGH 160 - 189 mg/dl HIGH >190 mg/dl VERY HIGH Performed By: #### LIPID, CMP #### [facility] [address] [place] [address] Dr. Peg ShelbyTriglyceride [Mass/Vol]266 mg/dLCritically high<=150The [facility] on above:Performed By: #### LIPID, CMP #### [facility] [address] [place] [address] Dr. Peg ShelbyVLDL CALC53.2 mg/dLNoParma Community General HospitalComveterans affairs medical center on above: Performed By: #### LIPID, CMP #### [facility] [address] [place] [address] Dr. Peg Herrera 14(COMP METB)on 25-34-3300Uxjlext [Mass/Vol]3.9 g/dLNormal 3.4-5.0[facility] on above:Performed By: #### LIPID, CMP #### [facility] [address] [address] [address] Peg ShelbyAlbumin/Globulin [Mass ratio]1.1 {ratio}NormalThe [facility] CenterComment on above:Performed By: #### LIPID, CMP #### [facility] [address] [address] [address] Peg VickP [Catalytic activity/Vol]90 U/UWnzbno28-916Ryk [facility] CenterComment on above:Performed By: #### LIPID, CMP #### [facility] [address] [address] [address] Peg VickT [Catalytic activity/Vol]131 U/LCritically obzi69-14Qxw [facility] CenterComment on above:Performed By: #### LIPID, CMP #### [facility] [address] [address] [address] Peg Howardon gap [Moles/Vol]10.7 mmol/LNormalThe [facility] Comment on above:Performed By: #### LIPID, CMP #### [facility] [address] [address] [address] Peg ShelbyAST [Catalytic activity/Vol]78 U/LCritically cdgr64-31Qyi [facility] CenterComment on above:Performed By: #### LIPID, CMP #### [facility] [address] [address] [address] Peg ShelbyBilirubin [Mass/Vol]0.5 mg/dLNormal0.2-1.0The [facility] Comment on above:Performed By: #### LIPID, CMP #### [facility] [address] [address] [address] Peg ShelbyCalcium [Mass/Vol]8.6 mg/dLNormal8.5-10.1The [facility] Comment on above:Performed By: #### LIPID, CMP #### [facility] [address] [address] [address] Peg ShelbyChloride [Moles/Vol]104 mmol/DKwlmau14-962Rql [facility] Comment on above:Performed By: #### LIPID, CMP #### [facility] [address] [address] [address] Peg ShelbyCO2 [Moles/Vol]29.5 mmol/UNxhkcg57.0-32.0The [facility] Comment on above:Performed By: #### LIPID, CMP #### [facility] [address] [address] [address] Peg ShelbyCreatinine [Mass/Vol]0.83 mg/dLNormal0.55-1.02The [facility] CenterComment on above:Performed By: #### LIPID, CMP #### [facility] [address] [address] [address] Peg BentleyGFR-AF PALESTINIAN>60Normal>=60The [facility] CenterComment on above:Performed By: #### LIPID, CMP #### [facility] [address] [address] [address] Peg BentleyGFR-NON AF PALESTINIAN>60Normal>=60The [facility] CenterComment on above:Performed By: #### LIPID, CMP #### [facility] [address] [address] [address] Peg ShelbyGlobulin (S) [Mass/Vol]3.4 g/dLNormalThe [facility] CenterComment on above:Performed By: #### LIPID, CMP #### [facility] [address] [address] [address] Peg ShelbyGlucose [Mass/Vol]108 mg/dLCritically vtck54-143Brj [facility] CenterComment on above:Performed By: #### LIPID, CMP #### [facility] [address] [address] [address] Peg ShelbyPotassium [Moles/Vol]4.2 mmol/LNormal3.5-5.1The [facility] Comment on above:Performed By: #### LIPID, CMP #### [facility] [address] [address] [address] Peg ShelbyProtein [Mass/Vol]7.3 g/dLNormal6.4-8.2The [facility] Comment on above:Performed By: #### LIPID, CMP #### [facility] [address] [address] [address] Peg ShelbySodium [Moles/Vol]140 mmol/FRnqoop377-986UydLima Memorial Hospital Comment on above:Performed By: #### LIPID, CMP #### [facility] [address] [address] [address] Peg Warren nitrogen [Mass/Vol]14.0 mg/dLNormal7.0-18.0The [facility] CenterComment on above:Performed By: #### LIPID, CMP #### [facility] [address] [address] [address] Peg ShelbyUrea nitrogen/Creatinine [Mass ratio]16.9 mg/mgHocking Valley Community HospitalComment on above:Performed By: #### LIPID, CMP #### [facility] [address] [place] [address] Dr. Peg MeyerID PROFILEon 79-95-2271IUUJ-HDL RATIO NORMSThe Christ HospitalComment on above:Result Comment: 3.3 - 4.4 LOW RISK 4.4 - 7.1 AVERAGE RISK 7.1 - 11.0 MODERATE RISK >11.0 HIGH RISKPerformed By: #### CMP, LIPID #### [facility] [address] [place] [address] Dr. Peg Brookeesterol [Mass/Vol]245 mg/dLCritically high<=200The [facility] CenterComment on above:Performed By: #### CMP, LIPID #### [facility] [address] [address] [address] Peg Brookeesterol in HDL [Mass/Vol]42 mg/dLHocking Valley Community Hospital Comment on above:Performed By: #### CMP, LIPID #### [facility] [address] [place] [address] Dr. Peg Brookeesterol in LDL [Mass/Vol]144.8 mg/dLHocking Valley Community HospitalComment on above:Performed By: #### CMP, LIPID #### [facility] [address] [place] [address] Dr. Yilan ChangCholesterol.total/Cholesterol in HDL [Mass ratio]5.8 {ratio} NormalThe [facility] Allen Hospitalment on above:Performed By: #### CMP, LIPID #### [facility] [address] [place] [address] Dr. Peg Munson NORMAL> or = 60 mg/dl - LOW CARDIOVASCULAR RISK <40 mg/dl - HIGH CARDIOVASCULAR RISKHocking Valley Community HospitalComment on above:Performed By: #### CMP, LIPID #### [facility] [address] [place] [address] Dr. Peg ShelbyLDL CALC NORMALSEE BELOWHocking Valley Community HospitalComment on above:Result Comment: <100 mg/dl OPTIMAL 100 - 129 mg/dl NEAR OR ABOVE OPTIMAL 130 - 159 mg/dl BORDERLINE HIGH 160 - 189 mg/dl HIGH >190 mg/dl VERY HIGH Performed By: #### CMP, LIPID #### [facility] [address] [place] [address] Dr. Peg ShelbyTriglyceride [Mass/Vol]291 mg/dLCritically high<=150The [facility] CenterComveterans affairs medical center on above:Performed By: #### CMP, LIPID #### [facility] [address] [place] [address] Dr. Peg GillilandLDL CALC58.2 mg/dLNoTriHealth [facility] on above: Performed By: #### CMP, LIPID #### [facility] [address] [place] [address] Dr. Peg ShelbyPROF 14(COMP METB)on 50-36-8392Gtvxbrd [Mass/Vol]4.0 g/dLNormal 3.5-5.0L[facility] HospitalComment on above:Performed By: #### CMP, LIPID #### [facility] [address] [place] [address] Dr. Peg ShelbyAlbumin/Globulin [Mass ratio]1.1 {ratio}NormalThe [facility] CenterComveterans affairs medical center on above:Performed By: #### CMP, LIPID #### [facility] [address] [place] [address] Dr. Yilan ChangALP [Catalytic activity/Vol]88 U/OJrctgj99-417Tbr [facility] CenterComment on above:Performed By: #### CMP, LIPID #### [facility] [address] [address] [address] Peg VickT [Catalytic activity/Vol]112 U/LCritically high9-52The [facility] CenterComment on above:Performed By: #### CMP, LIPID #### [facility] [address] [address] [address] Peg Howardon gap [Moles/Vol]12.5 mmol/LNormalThe [facility] Comment on above:Performed By: #### CMP, LIPID #### [facility] [address] [place] [address] Dr. Peg ShelbyAST [Catalytic activity/Vol]52 U/LCritically qjci19-03Ayb [facility] CenterComment on above:Performed By: #### CMP, LIPID #### [facility] [address] [place] [address] Dr. Peg ShelbyBilirubin [Mass/Vol]0.5 mg/dLNormal0.2-1.3TOhioHealth Nelsonville Health Center Comment on above:Performed By: #### CMP, LIPID #### [facility] [address] [place] [address] Dr. Peg ShelbyCalcium [Mass/Vol]8.9 mg/dLNormal8.4-10.2[facility] Comment on above:Performed By: #### CMP, LIPID #### [facility] [address] [place] [address] Dr. Peg ShelbyChloride [Moles/Vol]104 mmol/VFesmni16-703Dcy [facility] Comment on above:Performed By: #### CMP, LIPID #### [facility] [address] [place] [address] Dr. Peg ShelbyCO2 [Moles/Vol]30.5 mmol/LCritically high22.0-30.0The [facility] CenterComment on above:Performed By: #### CMP, LIPID #### [facility] [address] [place] [address] Dr. Peg Pereiraatinine [Mass/Vol]0.82 mg/dLNormal0.52-1.04The [facility] CenterComment on above:Performed By: #### CMP, LIPID #### [facility] [address] [place] [address] Dr. Peg BentleyGFR-AF PALESTINIAN>60Normal>=60The [facility] CenterComment on above:Performed By: #### CMP, LIPID #### [facility] [address] [address] [address] Peg BentleyGFR-NON AF PALESTINIAN>60Normal>=60The [facility] CenterComment on above:Performed By: #### CMP, LIPID #### [facility] [address] [place] [address] Dr. Peg ShelbyGlobulin (S) [Mass/Vol]3.7 g/dLNormalThe [facility] CenterComment on above:Performed By: #### CMP, LIPID #### [facility] [address] [place] [address] Dr. Peg ShelbyGlucose [Mass/Vol]118 mg/dLCritically sylw88-567Ooc [facility] Hospitalment on above:Performed By: #### CMP, LIPID #### [facility] [address] [place] [address] Dr. Peg ShelbyPotassium [Moles/Vol]4.0 mmol/LNormal3.4-5.0The [facility] Comment on above:Performed By: #### CMP, LIPID #### [facility] [address] [place] [address] Dr. Peg ShelbyProtein [Mass/Vol]7.7 g/dLNormal6.1-8.2[facility] Comment on above:Performed By: #### CMP, LIPID #### [facility] [address] [place] [address] Dr. Peg ShelbySodium [Moles/Vol]143 mmol/FBccazh341-725Cqw [facility] Comment on above:Performed By: #### CMP, LIPID #### [facility] [address] [place] [address] Dr. Peg Warren nitrogen [Mass/Vol]13.0 mg/dLNormal7.0-17.0The [facility] on above:Performed By: #### CMP, LIPID #### [facility] [address] [address] [address] Peg Warren nitrogen/Creatinine [Mass ratio]15.9 mg/mgNormalThe [facility] CenterComveterans affairs medical center on above:Performed By: #### CMP, LIPID #### [facility] [address] [address] [address] Peg Shelby2019 Novel Coronavirus (CoVID-19), LUCINDA LCon 98-92-3780KFHC-CoV-2, LUCINDA (COVID-19) LCDetectedAbnormalNot [facility] on above: Order Comment: [id number] Results Called To Imelda at Dr. Alba's By JOSUE And Read Back For Confirmation On 12/23/2019 11:38:22EDT.Result Comment: This test was developed and its performance characteristics determined by [employer] This test has not been FDA cleared [...] detected) result in this assay. Performed At: [facility] [address] [place], [place] [id number] Kenna Bach MD Ph:[phone] By: #### [id number] #### [facility] (DEFAULT) [address] [place], [place] [address]Wiljxn Summaryon 54-30-5866Btgnhj SummaryCODING DATE: 12/22/2019 [facility] STATUS: Home PAYOR: Commercial Insurance ADMIT DX: [...] By: Sheryl Lovett Date Saved: 12/22/2019 01:57 [facility]imaConsent Formson 12-22-2019 Consent [id number] Vital Signs Date TimeVital SignValuePerforming LacugvwvpMjxrjeuw16-61-7867 08:27-0500Body osfgjj107.02 cmMaribeth Galvez APRN Work Phone: [facility]11-05-2025 08:27-0500 Body mass index (BMI) [Ratio]47.2 kg/p4IrkpfxaqMaribeth Galvez HOISTING ENGINEER [employer] Work Phone: [phone]11-05-2025 08:27-0500 Body nximzb785.1 kgMaribeth Galvez HOISTING ENGINEER [employer] Work Phone: [facility]11-05-2025 08:27-0500 Diastolic blood moznefey947 mm[Hg]Maribeth Galvez HOISTING ENGINEER [employer] Work Phone: [phone]11-05-2025 08:27-0500 Heart pdek083 /minMaribeth Galvez APRN Work Phone: [facility]11-05-2025 08:27-0500 Respiratory rate14 /minMaribeth Taylorzoyazaida HOISTING ENGINEER PILE DRIVING Work Phone: [phone] [place], [place] 1503111-05-2025 08:27-0500 SaO2% (BldA) [Mass fraction]96 %Maribeth Willzaida HOISTING ENGINEER PILE DRIVING Work Phone: [phone] [place], [place] 1503111-05-2025 08:27-0500 Systolic blood mm[Hg]Maribeth Castilloryan HOISTING ENGINEER PILE DRIVING Work Phone: [phone] [place], [place] 1503110-08-2025 08:54-0400 Body uibwzz816.02 cmMaribeth Castillorosalbazoyazaida HOISTING ENGINEER PILE DRIVING Work Phone: [phone] [place], [place] 1503110-08-2025 08:54-0400 Body mass index (BMI) [Ratio]47.9 kg/s0IwthdxucMaribeth Castillorosalbazoyar HOISTING ENGINEER PILE DRIVING Work Phone: [phone] [place], [place] 1503110-08-2025 08:54-0400 Body jntnkwqsgoo33.7 [degF]Maribeth Castilloryan HOISTING ENGINEER PILE DRIVING Work Phone: [phone] [place], [place] 1503110-08-2025 08:54-0400 Body ccltiq834.92 kgMaribeth Willzaida HOISTING ENGINEER PILE DRIVING Work Phone: [phone] [place], [place] 1503110-08-2025 08:54-0400 Diastolic blood astbganf94 mm[Hg]Maribeth Castilloryan HOISTING ENGINEER PILE DRIVING Work Phone: [phone] [place], [place] 1503110-08-2025 08:54-0400 Heart iuye574 /minMaribeth Castillorosalbazoyazaida HOISTING ENGINEER PILE DRIVING Work Phone: [phone] [place], [place] 1503110-08-2025 08:54-0400 SaO2% (BldA) [Mass fraction]97 %Maribeth Castilloryan HOISTING ENGINEER PILE DRIVING Work Phone: [phone] [place], [place] 1503110-08-2025 08:54-0400 Systolic blood vdbyhpjg831 mm[Hg]Maribeth Leonor HOISTING ENGINEER PILE DRIVING Work Phone: [phone] [place], [place] 1503105-07-2025 13:28-0400 Body cyhtup512 cmEdellie Alba MD Work Phone: [phone] [place], [place] 6832405-07-2025 13:28-0400Body mass index (BMI) [Ratio]48.71 kg/j0OasigdEnrique Alba MD Work Phone: [phone] [place], [place] 6832405-07-2025 13:28-0400Body .74 kgEnrique Alba MD Work Phone: [phone] [place], [place] 6832405-07-2025 13:28-0400Heart rate77 /min Enrique Alba MD Work Phone: [phone] [place], [place] 6832405-07-2025 13:28-8614VbO3% (BldA) [Mass fraction]97 %Enrique Alba MD Work Phone: [phone] [place], [place] 6832404-07-2025 15:24-0400Body hqdqqy943 cm Enrique Alba MD Work Phone: [phone] [place], [place] 6832404-07-2025 15:24-0400Body mass index (BMI) [Ratio]48.71 kg/d3NqjpxfEnrique Alba MD Work Phone: [phone] [place], [place] 6832404-07-2025 15:24-0400Body .74 kgEnrique Alba MD Work Phone: [phone] [place], [place] 6832404-07-2025 15:24-0400Diastolic blood atyvjrol98 mm[Hg]Enrique Alba MD Work Phone: [phone] [place], [place] 6832404-07-2025 15:24-0400Heart rate90 /min Enrique Alba MD Work Phone: [phone] [place], [place] 6832404-07-2025 15:24-5157CfQ1% (BldA) [Mass fraction]97 %Enrique Alba MD Work Phone: [phone] [place], [place] 6832404-07-2025 15:24-0400Systolic blood awwfuwxt515 mm[Hg]Enrique Alba MD Work Phone: [phone] [place], [place] 6832402-18-2025 18:15-0500Body temperature 97.2 [degF]Luis Eduardo Levine STORY ANALYST Work Phone: [facility] CenterNzalnsijjf20-27-0097 18:15-0500Diastolic blood iftwfkia05 mm[Hg]Luis Eduardo Levine STORY ANALYST Work Phone: [facility] CenterFofeuesbdb57-94-9634 18:15-0500Heart rate88 /min Luis Eduardo Levine STORY ANALYST Work Phone: [facility] CenterAodohvmgui55-12-2970 18:15-2923AxX1% (BldA) [Mass fraction]98 %Luis Eduardo Levine STORY ANALYST Work Phone: [facility] CenterJbpdhugndw03-01-0655 18:15-0500Systolic blood mfnpcyri394 mm[Hg]Luis Eduardo Levine STORY ANALYST Work Phone: [facility] CenterCqvwnhrpsr73-04-7317 10:20-0500Body mass index (BMI) [Ratio]48.86 kg/v9MzavfckBeatriz Chavis STORY ANALYST Work Phone: [facility] CenterBqqfzgcynj09-78-2807 10:20-0500Body temperature 97.59 [degF]Beatriz Sweeneyion STORY ANALYST Work Phone: [facility] CenterKajeuvhhlo28-21-1526 10:20-0500Body .1 kgBeatriz Sweeneyion STORY ANALYST Work Phone: [facility] CenterPelqheiymv29-04-2162 10:20-0500Diastolic blood idkfegiz32 mm[Hg]Beatriz Sweeneyion STORY ANALYST Work Phone: [facility] CenterPokgzqcfzv68-53-9776 10:20-0500Heart jkwi557 /min Beatriz Sweeneyion STORY ANALYST Work Phone: [facility] CenterPocylntppy83-43-3613 10:20-7809OuI2% (BldA) [Mass fraction]97 %Beatriz Sweeneyion STORY ANALYST Work Phone: [facility] CenterRyjpjgbjuk04-13-0200 10:20-0500Systolic blood zfkzrqci162 mm[Hg]Beatrizashley Sweeneyion STORY ANALYST Work Phone: [facility] CenterPcgxpxpjli33-78-6792 13:48-0500Body cm Enrique Alba MD Work Phone: [facility] CenterGlcbgvfjxb72-51-6153 13:48-0500Body mass index (BMI) [Ratio]36.31 kg/l1VvuigjEnrique Alba MD Work Phone: [facility] CenterTmufqvbfdt46-60-5703 13:48-0500Body .99 kgEnrique Alba MD Work Phone: [facility] CenterGdmobyplms10-12-4196 13:48-0500Heart rate93 /min Enrique Alba MD Work Phone: [facility] CenterSnlmgmexdx48-56-5825 13:48-1575ZyN3% (BldA) [Mass fraction]95 %Enrique Alba MD Work Phone: [facility] CenterLgyrcwuojh44-65-0897 11:40-0500Body mass index (BMI) [Ratio]36.34 kg/m2Janey Savage PA Work Phone: [facility] CenterUrdfauwgma68-63-5532 11:40-0500Body pdiyjk86.04 kgAmy Janette PA Work Phone: [facility] CenterRlgxlmiacg77-67-5589 11:40-0500Diastolic blood gceounuo64 mm[Hg]Janey Savage PA Work Phone: [facility] CenterUdswdferij67-69-1473 11:40-0500Systolic blood cdvbtyte552 mm[Hg]Janey RILEY Work Phone: [facility] CenterKshrfgffek38-47-3089 14:26-0500Body annbcs214 cm Enrique Alba MD Work Phone: [facility] CenterNtfichwygv29-88-1192 14:26-0500Body mass index (BMI) [Ratio]49.6 kg/m1HnhuuqEnrique Alba MD Work Phone: [facility] CenterXxlovmrweo43-98-4621 14:26-0500Body uegyjb313.01 kgEnrique Alba MD Work Phone: [facility] CenterHrnfephsyd91-34-2416 15:35-0400Body ryshbn578 cm Enrique Alba MD Work Phone: [phone] CenterLomyxabsvq42-47-2411 15:35-0400Body mass index (BMI) [Ratio]49.6 kg/n6VqiwarEnrique Alba MD Work Phone: [phone] CenterJhnsjxahfk06-49-0945 15:35-0400Body ovpfmt592.01 kgEnrique Alba MD Work Phone: [phone])[facility] CenterPlkpczqquy36-26-6148 15:35-0400Diastolic blood hkcwyduc18 mm[Hg]Enrique Alba MD Work Phone: [phone] CenterWgtkijgqck96-96-0164 15:35-0400Heart rate97 /min Enrique Alba MD Work Phone: [phone] CenterKwjmduzfnr55-18-5340 15:35-4942UmR7% (BldA) [Mass fraction]99 %Enrique Alba MD Work Phone: [phone] CenterUbvuniaubj66-13-7642 15:35-0400Systolic blood bnrxyvvk087 mm[Hg]Enrique Alba MD Work Phone: [phone] CenterZixedeoxgo13-56-8241 16:24-0400Body yxwekc261 cm Enrique Alba MD Work Phone: [phone] CenterAzdsnjznud86-88-8034 16:24-0400Body mass index (BMI) [Ratio]46.06 kg/d3BhwpjtEnrique Alba MD Work Phone: [phone] CenterDgzispfwqv65-10-1087 16:24-0400Body esfkrz737.94 kgEnrique Alba MD Work Phone: [phone] CenterBdxkpzniox69-39-2619 14:03-0400Body dqnwag[address] Work Phone: c[facility] CenterAwhcst77-66-0109 14:03-0400Body .[address] Work Phone: c[facility] CenterWbnrjc92-52-3888 13:20-0400Body tukvll391 cm Radha Hernandez MD Work Phone: [facility]07-05-2023 13:20-0400Body ktssam171.2 kgJulianmackenziehali Hernandez MD Work Phone: [facility]04-06-2023 14:50-0400Diastolic blood japqkgtz97 mm[Hg]Mariajose Stallworth MD Work Phone: c[facility] CenterNzzkcl04-41-0995 14:50-0400Heart zosu832 /minMariajose Stallworth MD Work Phone: [facility]and Wnynhr85-81-8935 14:50-0400Systolic blood oexlcxnx207 mm[Hg]Mariajose Stallworth MD Work Phone: c[facility] CenterFxkicg80-94-9458 14:00-0500Body ijyrwz253.02 Demetar Fuller Other [employer] Other 01-10-2023 14:00-0500Body mass index (BMI) [Ratio] 46.05 kg/r7Tgrleslbdeanne Fuller Other [employer] Other 01-10-2023 14:00-0500Body lufbch647.94 kgLadeanne Fuller Other [employer] Other 01-10-2023 14:00-0500Diastolic blood jpfagcgk370 mm[Hg]Ernie Fuller Other [employer] Other 01-10-2023 14:00-0500Systolic blood ndspweug407 mm[Hg] Ernie Fuller Other [employer] Other 10-05-2022 10:45-0400Body wchpon844.02 Demetra Fuller Other [employer] Other 10-05-2022 10:45-0400Body mass index (BMI) [Ratio] 47.29 kg/r8Womspzbjdeanne Fuller Other [employer] Other 10-05-2022 10:45-0400Body ekllio460.11 kgLawrnadine Fuller Other [facility] [employer] Other Encounters Encounter DateEncounter TypeCare ProviderFacilityStart: 03-02-2025 End: 43-08-3192mtcbcrjrlqBgrfhtcv Rohrbacher APRN Work Phone: [facility] 03-[facility]2025 End: 20-45-7240Wxbtcyu encounter procedurePatrickedwige Galvez APRN [facility] Work Phone: Start: 29-82-9005xamedrumymMYRDWWGMCDB [facility] Systemtart: 02-02-2025 End: 09-58-9076jkagqojubyBecuzaorEan Galvez APRN Work Phone: [facility] Work Phone: Start: 02-02-2025 End: 49-44-5205Nrpbfms encounter procedurePatrickjoellenjohan Castillorosalbazoyazaida FISHER [facility] Work Phone: Start: 11-09-2024 End: 63-85-4233Xqctvbswt encounterApril Rachel MCCULLOUGH CI FM 100Comment on above: Care CoordinationStart: 11-04-2024 End: 19-36-9789Xtqukysxk Result Jose Alba MD Work Phone: NOKM External Department UnsolicitedStart: 11-04-2024 End: 16-57-4460Pywpifrhk Result EncounterEdellie Alba MD Work Phone: NOCP External Department UnsolicitedStart: 10-30-2024 End: 76-16-8039Zddxzhyud Result EncounterGeneric External Data ProviderNOMS External Department UnsolicitedStart: 10-30-2024 End: 40-62-1319Vqxcnymnj Result EncounterGeneric External Data ProviderNOMS External Department UnsolicitedStart: 10-27-2024 End: 12-69-0698Xluyslrga Result Jose Alba MD Work Phone: NOOA External Department UnsolicitedStart: 10-27-2024 End: 85-80-4080Ejxvcbixk Result EncounterEdellie Alba MD Work Phone: NOQT External Department UnsolicitedStart: 09-01-2024 End: 27-41-8372Acybap flowsheetEnrique Alba MD Work Phone: [phone] CI FM 100Start: 09-01-2024 End: 72-13-7617Dovikt Ian Alba MD Work Phone: [facility] CI FM 100Start: 09-01-2024 End: 73-74-8994Tkrqtn outpatient visit 25 minutesEnrique Alba MD Work Phone: [facility] CI FM 100Comment on above:Palpitations (Primary Dx); TachycardiaStart: 09-01-2024 End: 32-42-3333ldlllgygwuUPNRNM J HEMEYERNot AvailableStart: 08-02-2024 End: 33-04-2095Uldsin outpatient visit 25 minutesEnrique Alba MD Work Phone: [facility] CI FM 100Comment on above:Restless leg syndrome (Primary Dx); Other chronic pain; Insomnia due to other mental disorder; Recurrent major depressive disorder, in partial remission (HCC) (CMS/HCC); Primary hypertension (CMS/HCC); Mixed dyslipidemia (CMS/HCC); Pre-diabetes; Morbid obesity (CMS/HCC); Adult BMI 45.0-49.9 kg/sq m (CMS/HCC)Start: 08-02-2024 End: 78-50-2551vvchtgesqiATQXLE J HEMEYERNot AvailableStart: 08-02-2024 End: 63-64-1312Xxqbbb flowsNavarro Alba MD Work Phone: [facility] CI FM 100Start: 08-02-2024 End: 59-39-9732Fwssbd Ian Alba MD Work Phone: [facility] CI FM 100Start: 06-16-2024 End: 99-50-8499Tkizpgsng encounterLinmoustapha Perez Julián STORY ANALYST Work Phone: [facility] HSM FMStart: 06-15-2024 End: 72-40-1152Ubipsf outpatient visit 25 minutesLinmoustapha Levine STORY ANALYST Work Phone: [facility] SWS UCComment on above:Left foot pain (Primary Dx); Strain of left foot, initial encounterStart: 06-15-2024 End: 40-55-1887uykqjxnzsbHODVCXZ N AUSTINNot AvailableStart: 05-09-2024 End: 97-77-5029ZqxtiuVnsqza J Hemeyer MD Work Phone: noMS CI FM 100Comment on above:Pre-diabetesStart: 04-17-2024 End: 53-28-6437cezrpnaydyMQQYVSS L DIDIONNot AvailableStart: 04-17-2024 End: 28-00-8450Wmrhii outpatient visit 25 minutesJesshong Chavis STORY ANALYST Work Phone: noms SWS UCComment on above:Acute pain of left knee (Primary Dx)Start: 04-05-2024 End: 78-29-0708Ormfosrick Alba MD Work Phone: [facility] CI FM 100Start: 04-05-2024 End: 00-69-3783Bowjlr Ian Alba MD Work Phone: [facility] CI FM 100Start: 04-05-2024 End: 76-17-8937ysbqcxgwckZFOPCO J HEMEYERNot AvailableStart: 04-05-2024 End: 21-84-1766Ugoztk outpatient visit 15 minutesEnrique Alba MD Work Phone: [facility] CI FM 100Comment on above:Acute non-recurrent pansinusitis (Primary Dx)Start: 03-31-2024 End: 28-53-7725Pobjvn Fco Alba MD Work Phone: [facility] CI FM 100Comment on above:Pre-diabetesStart: 03-29-2024 End: 72-20-5104Czzpfa flowsSuni RILEY Work Phone: noms BCP OBStart: 03-29-2024 End: 85-69-1282Ymbvve flowsheetJaney RILEY Work Phone: [facility]oms BCP OBStart: 03-29-2024 End: 09-64-8051Gupgbnprd Result EncounterGeneric External Data ProviderNOMS External Department UnsolicitedStart: 03-29-2024 End: 17-23-2051Jtykqqn encounter procedureAmy Janette PA Work Phone: [facility] Work Phone: Start: 03-29-2024 End: 75-97-7653Krlpifdt preventive med est patient 40-64yrsAmy Janette RILEY Work Phone: [facility]oms [facility] OBComment on above:Well woman exam with routine gynecological exam; Yeast infection of the skinStart: 03-29-2024 End: 75-71-2724yadzglgkchQJC RAMEYNot AvailableStart: 03-13-2024 End: 71-53-7835TrnurlNlkrtqPiyush Alba MD Work Phone: [facility] CI FM 100Comment on above:Mixed dyslipidemia (CMS/HCC)Start: 03-12-2024 End: 94-17-2493WppqfzLkacnhPiyush Alba MD Work Phone: [facility] CI FM 100Comment on above:Mixed dyslipidemia (CMS/HCC)Start: 03-11-2024 End: 03-71-2222Bssqeu outpatient visit 25 minutesEdellie Alba MD Work Phone: [facility] CI FM 100Comment on above:Pre-diabetes (Primary Dx); Restless leg syndrome; Mixed dyslipidemia (CMS/HCC)Start: 03-11-2024 End: 33-41-9573xavymhzihqKWIKJY J HEMEYERNot AvailableStart: 03-11-2024 End: 38-42-2256Qrpukx flowsNavarro Alba MD Work Phone: [facility] CI FM 100Start: 03-11-2024 End: 86-37-9589Ggoshm flowsNavarro Alba MD Work Phone: [facility] CI FM 100Start: 03-05-2024 End: 12-39-5536Ekebsumnl Result EncounterEdellie Alba MD Work Phone: NOHP External Department UnsolicitedStart: 03-05-2024 End: 78-23-7842Aqhflmjym Result EncounterEdellie Alba MD Work Phone: noms External Department UnsolicitedStart: 02-25-2024 End: 44-67-4836Flprpar encounter statusEdellie Alba MD Work Phone: [facility] Work Phone: Start: 02-25-2024 End: 09-93-8043Xmiriqlj preventive med est patient 40-64yrsEdellie Alba MD Work Phone: NOKS CI FM 100Comment on above:Encounter for wellness [...] Screening mammogram for breast cancerStart: 02-25-2024 End: 27-01-9155wngflzrmytEINUKC J HEMEYERNot AvailableStart: 02-25-2024 End: 31-01-4789Cmtgcj flowsNavarro Alba MD Work Phone: [facility] CI FM 100Start: 02-25-2024 End: 85-02-0377Cdrblg Ian Alba MD Work Phone: NOCB CI FM 100Start: 12-25-2023 End: 49-07-8489Thxodsepf encounterEdellie Alba MD Work Phone: [facility] CI FM 100Start: 12-16-2023 End: 14-91-0698vodgngrwafRZQUGZ J HEMEYERNot AvailableStart: 12-16-2023 End: 27-18-5242Krvzlg outpatient visit 15 minutesEdellie Alba MD Work Phone: [facility] CI FM 100Comment on above:Insomnia due to other mental disorder; Recurrent major depressive disorder, in partial remission (HCC) (CMS/HCC); Morbid obesity (CMS/HCC); Adult BMI 45.0-49.9 kg/sq m (CMS/HCC)Start: 12-05-2022 End: 28-45-0058mxsiqkwllpLkahstzvlNoemí Gee RD Work Phone: Nutrition TherapyComment on above:Fatty liverStart: 12-05-2022 End: 32-08-4731Qkdicdbgwfbj consultation with Teri Gee RD Work Phone: MIGUEL MATA FHCStart: 10-30-2022 End: 46-27-1848yiopwydtrnBUFHWLBertram HERNANDEZFacility:[facility] Start: 10-30-2022 End: 91-15-7305Scsyfle encounter procedureRadha Hernandez MD Work Phone: GastroenterologyComment on above:Fatty liver (Primary Dx); Class 3 severe obesity due to excess calories in adult, unspecified BMI, unspecified whether serious comorbidity present (HCC)Start: 08-01-2022 End: 38-72-7252swfrshitqnAGFTCY S PERHALAFacility:[facility] Start: 08-01-2022 End: 44-31-3332Zgfpevv encounter Giorgi Stallworth MD Work Phone: RheumatologyComment on above:Erosive osteoarthritis of both hands (Primary Dx); Primary osteoarthritis involving multiple joints; NSAID long-term useStart: 06-17-2022 End: 34-95-1942ntwdlzcjkhYoerwb Cundiff Other [facility] [employer] Other Start: 46-36-7282Hwmbibeyc Neptaliwilli Meryl Referral CoordinatorStart: 05-07-2022 End: 57-36-2313aqvpazehzgSltwzatj McCormack Other [employer] Other Start: 35-06-6820Nheepy outpatient visit 25 minutes Ernie Monson GastroenterologyStart: 02-20-2022 End: 12-46-8896sfgwffpccbZxmwsw J HemeyerFacility:[facility]tart: 01-30-2022 End: 76-49-1726ijnjchgxkvCsmxovzu McCormack Other [facility] [employer] Other Start: 13-11-9199Mfsibi outpatient new 45 minutes Ernie Monson GastroenterologyStart: 11-05-2021 End: 34-25-3354amfbnfjbzrYD OSCAR ANAASIKFacility:V0Xpkly: 11-01-2021 End: 90-76-8778jnvrwremixDV EDWARD HEMEYERFacility:G4Opmlt: 10-16-2021 End: 57-69-0069pjgqitgkduXS EDWARD HEMEYERFacility:T9Ltdvh: 10-11-2021 End: 22-91-1132ylmzbeidgjPO EDWARD HEMEYERFacility:A2Ghvpp: 03-20-2021 End: 30-01-3163bvjtumpyfeIS EDWARD HEMEYERFacility:H1 Procedures DateProcedureProcedure DetailPerforming ClinicianStart: CN KIMBERLYN PERF SPECT REST Magalys Alba MD Work Phone: Start: 38-74-3409EQM HEMOGLOBIN G8GVjwsbsz External Data ProviderStart: 92-08-7763FZV CBC WITH AUTO DIFFEnrique Alba MD Work Phone: Start: 21-58-0059Ipcyzksgac examination knee 3 views Beatriz Chavis STORY ANALYST Work Phone: Start: 40-49-5592AIP,APTIMA HPV,AGE GDLNJaney RILYE Work Phone: Start: 67-63-4446Yvpebpyqjnb observation [Identifier] in Cervix by Cyto Loan Alba MD Work Phone: Start: 98-96-9307TL TOMOSYNTHESIS SCREENING BIEnrique Alba MD Work Phone: Start: 56-35-5457FY DEXA AXIAL SKELETONEdellie Alba MD Work Phone: Start: 15-56-7914IPO LIPID PROFILE (FASTING)Enrique Alba MD Work Phone: Start: 46-35-5760HJR CMP (CMP) (FOR REMOTE [facility] USE) Enrique Alba MD Work Phone: Start: 61-34-9605IzkaxtkprkcUtwcdj Hemeyer MD Work Phone: Start: 44-84-2956Sfchtsdynby observation [Identifier] in Cervix by Cyto Davina RILEY Work Phone: Start: 90-40-8323Nqpxqxd of operative procedure on kneeStatus post bilateral knee replacementsEnrique Alba MD Work Phone: Start: 46-76-7043UtffietmikeJbsdgd Hemeyer MD Work Phone: Start: 42-11-2908GydvsshftiqDgedbrqhx [address] RD Work Phone: Plan of Treatment DateCare ActivityDetailAuthorStart: 51-67-0098Xkbpzmxwh for malignant neoplasm of cervixNOMS HealthcareStart: 57-96-1845Ozesfdtkz for malignant neoplasm of colonNOMS HealthcareStart: 10-65-0935Twdolcgih for malignant neoplasm of cervix [facility] HealthcareStart: 04-04-2025 End: 06-13-1521Ysrjnlr encounter procedureNOMS BCP OBStart: 70-70-9391Jdvbomjis for malignant neoplasm of breastMammogramNOMS HealthcareStart: 22-37-2213IREMY- 19 Vaccine ( season)COVID-19 Vaccine ( season)[facility] HealthcareStart: 94-68-7481Rsyvgzhwv vaccinationInfluenza Vaccine (#1)[facility] HealthcareStart: 09-01-2024 End: 90-12-3766Pcsvjg monitor studyHolter monitor Imaging Routine Palpitations Tachycardia Expected: 09/01/2024 (Approximate), Expires: 09/01/2025[facility] Work Phone: Comment on above:Expected: 09/01/2024 (Approximate), Expires: 09/01/2025Start: 09-01-2024 End: 26-84-7045Hzkvuqv encounter ppvyrvzlf46/07/2025 1:45 PM EDT Office Visit [facility] [address] [place] [address] Enrique Alba MD [address] [place] [address] (Fax) ArrivedNOMS CI FM 100Comment on above: ArrivedStart: 08-02-2024 End: 13-10-4021Htsjviv encounter njqzowtft98/07/2025 3:30 PM EDT Office Visit [facility] [address] [place] [address] Enrique Alba MD [address] [place] [address] (Fax) Primary hypertension (CMS/HCC); Mixed dyslipidemia (CMS/HCC); [...] BMI 45.0-49.9 kg/sq m (CMS/HCC)Start: 08-02-2024 End: 21-29-6580OSI W Auto Differential panel - BloodCBC and differential Lab Routine Restless leg syndrome Expected: 08/02/2024 (Approximate), Expires: 08/02/2025[facility] Work Phone: Comment on above:Expected: 08/02/2024 (Approximate), Expires: 08/02/2025Start: 08-02-2024 End: 51-76-2370Ofbx and Iron binding capacity panel - Serum or PlasmaIron and TIBC Lab Routine Restless leg syndrome Expected: 08/02/2024 (Approximate), Expires: 08/02/2025[facility] HealthcareComment on above:Expected: 08/02/2024 (Approximate), Expires: 08/02/2025Start: 03-29-2024 End: 70-09-6784Dofqtvu encounter procedureNOMS BCP OBComment on above:Arrived Start: 31-74-7692Avlzqauue for malignant neoplasm of cervixNOMA HealthcareStart: 02-26-2024 End: 72-58-0656Xtdfvgxzhnyom metabolic 2000 panel - Serum or PlasmaComprehensive metabolic panel Lab Routine Glucose intolerance (impaired glucose tolerance) Primary hypertension (CMS/HCC) Expected: 02/26/2024 (Approximate), Expires: 02/25/2025[facility] Work Phone: Comment on above:Expected: 02/26/2024 (Approximate), Expires: 02/25/2025Start: 02-26-2024 End: 42-55-2926TMO Breast - bilateral screeningBilateral screening mammogram with tomosynthesis Imaging Routine Screening mammogram for breast cancer Expected: 02/26/2024 (Approximate), Expires: 04/27/2025[facility] HealthcareComment on above:Expected: 02/26/2024 (Approximate), Expires: 04/27/2025Start: 02-26-2024 End: 72-74-6763OVB Skeletal system Views for bone densityDEXA bone density Imaging Routine Menopausal and female climacteric states Osteoporosis screening Encounter for follow-up examination after completed treatment for conditions other than malignant neoplasm Expected: 02/26/2024 (Approximate), Expires: 02/25/2025NOMS HealthcareComment on above:Expected: 02/26/2024 (Approximate), Expires: 02/25/2025Start: 02-26-2024 End: 34-59-9646Pkbif 1996 panel - Serum or PlasmaLipid panel Lab Routine Mixed hyperlipidemia (CMS/HCC) Expected: 02/26/2024 (Approximate), Expires:02/25/2025 [facility] HealthcareComment on above:Expected: 02/26/2024 (Approximate), Expires: 02/25/2025Start: 02-25-2024 End: 60-86-2694Vzrciiy encounter mtzmvjeem32/30/2024 3:30 PM EDT Office Visit [facility] [address] [id number] Enrique Alba MD [address] [address] Encounter for wellness examination in adult; Advance directive discussedwith patient; Morbid obesity (CMS/HCC); Adult BMI 45.0-49.9 kg/sq m (CMS/HCC)[facility] 100Comment on above:Encounter for wellness examination in adult; Advance directive discussed with patient; Morbid obesity (CMS/HCC); Adult BMI 45.0-49.9 kg/sq m (CMS/HCC)Start: 11-64-6204Sxnnjmazi vaccination Influenza Vaccine (#1)[facility] HealthcareStart: 22-28-9252Mkprrlmmx vaccination INFLUENZA (#1)[facility]: 93-88-8460Nijylawfi for malignant neoplasm of breastMammogramNOMS HealthcareStart: 10-30-2022 End: 14-68-3692KCYAEL SCREEN WITH REFLEXCELIAC SCREEN WITH REFLEX Lab Routine Fatty liver Expected: 10/30/2022, Expires: 12/30/2022[facility] Work Phone: Comment on above:Expected: 10/30/2022, Expires: 12/30/2022Start: 10-30-2022 End: 90-73-9145Soaymvyvvyved metabolic 2000 panel - Serum or PlasmaCOMP METABOLIC PANEL Lab Routine Fatty liver Expected: 10/30/2022, Expires: 12/30/2022[facility] Work Phone: Comment on above:Expected: 10/30/2022, Expires: 12/30/2022Start: 10-30-2022 End: 96-51-9555ZDRSDUQOD A ANTIBODY, IGGHEPATITIS A ANTIBODY, IGG Lab Routine Fatty liver Expected: 10/30/2022, Expires: 12/30/2022[facility] Work Phone: Comment on above:Expected: 10/30/2022, Expires: 12/30/2022Start: 36-30-5481FEFGBYGVLU ASSESSMENTDEPRESSION ASSESSMENTOur Lady of Mercy Hospitaltart: 60-93-2139IuzavkrajxaRVQQYJZRIGyuubqymf ClinicStart: 2020 SHINGRIX VACCINE (1 of 2)SHINGRIX VACCINE (1 of 2)[facility]: 80-45-8921TVVOTSXG SCREENDIABETES SCREENOur Lady of Mercy Hospitaltart: 09-25-2015 COLOGUARD (FIT-DNA)COLOGUARD (FIT-DNA)[facility]: [facility]2015 ColonoscopyCOLONOSCOPYOur [facility] of [facility] Hospitaltart: 66-87-5100YCQZBWNXTB CANCER SCREENINGCOLORECTAL CANCER SCREENINGOur [facility] of [facility] Hospitaltart: 62-67-9322DH COLONOGRAPHYCT COLONOGRAPHYOur [facility] of Mercy Hospitalt[facility]: 13-70-6019DHCMR OCCULT BLOOD FECAL OCCULT BLOODOur Lady of Mercy Hospitaltart: 69-71-5587HWTCZ SCREENLIPID SCREEN [facility]: 30-34-1353ZGRQNYRFQFOTLXVMTQWCHTTCTDEeoezadod Clinic Start: 17-31-7590KkdghjkbqmaSIPJWILKPAsrdaztsh ClinicStart: 69-75-4180LGD TESTINGHPV TESTINGOur [facility] of Mer[facility] Hospitaltart: 26-20-4754UWX TESTINGPAP TESTING [facility]: 24-18-7016Gkszvbdau for malignant neoplasm of cervixPap SmearCapital Region Medical CenterStart: 40-11-4739Opixyujqc A Vaccines (1 of 2 - Risk 2-dose series)Hepatitis A Vaccines (1 of 2 - Risk 2-dose series)[facility] HealthcareStart: 61-21-7187Tpjuzuvim B Vaccines (1 of 3 - 19+ 3-dose series)Hepatitis B Vaccines (1 of 3 - 19+ 3-dose series)[facility] HealthcareStart: 06-71-1537Yrwds microalbumin profileDTAP,TDAP,TD (1 - Tdap)[facility]: 98-86-9226UUHXJMMMQ C SCREENINGHEPATITIS C SCREENINGOur [facility] of [facility] Hospitaltart: 83-67-4188OEV SCREENINGHIV SCREENINGOur Lady of Mer[facility] Hospitaltart: 10-92-3996STjP/Tdap/Td Vaccines (1 - Tdap) DTaP/Tdap/Td Vaccines (1 - Tdap)[facility] HealthcareStart: 32-43-8029LRN Vaccines (1 of 1 - Standard series)MMR Vaccines (1 of 1 - Standard series)[facility] Start: 77-26-5747GIEYMQIUQ B (1 of 3 - 3-dose series)HEPATITIS B (1 of 3 - 3- dose series)[facility]: 75-35-5005Ymvweihzf for malignant neoplasm of colonMOAB REGIONAL HOSPITAL HealthcarePatient EducationLow back pain in adultsK[facility] Work Phone: THIN PREP TIS PAP AND HR HPV DNATHIN PREP TIS PAP AND HR HPV DNA Pathology and Cytology Routine Well woman exam with routine gynecol ogical exam Ordered: 03/29/2024[facility] Work Phone: comment on above:Ordered: [facility] Immunizations Immunization DateImmunizationNotesCare RdtvtjkbXvjdpauv05-82-8524cibsmyess, seasonal, injectable, preservative freeMaribeth Galvez APRN Work Phone: [facility]09-09-2024influenza, injectable, madin francesca canine kidney, preservative freeEnrique Alba MD Work Phone: [facility] CenterNbfhiamsws84-62-6234akhvioooy virus vaccine, unspecified formulationEnrique Alba MD Work Phone: [facility] CenterKqrtdtlxiv48-46-4353Brihursia, injectable, Madin Tolstoy Canine Kidney, preservative free, quadrivalentEnrique Alba MD Work Phone: [phone] [place], [place] [address]Bsjlssesrr52-77-1863vjoutfpng virus vaccine, unspecified formulationEnrique Alba MD Work Phone: [phone] [place], [place] [address]Nyhvhljcwg53-74-2165Nvvbxjbrg, injectable, Madin Francesca Canine Kidney, preservative free, quadrivalentEnrique Alba MD Work Phone: [phone] [place], [place] [address]Blicnvlvzx15-72-2550ASFE-NHC-0 (COVID-19) vaccine, mRNA, spike protein, LNP, bivalent, preservative free, 30 mcg/0.3 mL dose, joyce-sucrose formulationEnrique Alba MD Work Phone: [phone] [place], [place] [address]Zobxoibevc80-54-5674hiuhkd vaccine recombinant Enrique Alba MD Work Phone: [phone] [place], [place] [address]Znsouprico62-47-1364xosxsiswh, injectable, quadrivalent, preservative freeEnrique Alba MD Work Phone: [phone] [place], [place] [address]Iadqyfdtnh55-33-4148dzxbjm vaccine recombinant Enrique Alba MD Work Phone: [phone] [place], [place] [address]Yxlhgqrbmm56-26-9760lzyoysxzx, injectable, quadrivalent, preservative freeEnrique Alba MD Work Phone: [phone] [place], [place] [address]Anrimbtokl30-78-2030fueagimul, high dose seasonal, preservative-freeEnrique Alba MD Work Phone: [phone] [place], [place] [address]Woasmnbjmj12-48-4834pjdkhctfv, injectable, quadrivalent, preservative freeEnrique Alba MD Work Phone: [phone] [place], [place] [address]Nwjvsrrdcl16-94-9339Ocpltayhu, injectable, Madin Francesca Canine Kidney, preservative free, quadrivalentEnrique Alba MD Work Phone: [phone] [place], [place] [address]Oyvnkouggv54-34-3017Rtymdwwda, injectable, Madin Francesca Canine Kidney, quadrivalent with preservativeEnrique Alba MD Work Phone: [phone] [place], [place] [address]Kycizctrnw82-94-5654vucaankmw, injectable, quadrivalent, preservative freeEdellie Alba MD Work Phone: [phone] [place], [place] [address]Uajiapepad39-14-5790zxrlqjiyz, injectable, quadrivalent, preservative freeEnrique Alba MD Work Phone: [phone] [place], [place] [address]Pgxdkekbig56-44-4588mujhqvzxp, seasonal, injectable, preservative freeEnrique Alba MD Work Phone: [phone] [place], [place] [address]Zctntktbpq34-48-7419evumeeyxt, injectable, quadrivalent, preservative freeEdellie Alba MD Work Phone: [phone] [place], [place] [address]Dlbxgproce13-72-7200pljuzsrby, seasonal, injectable, preservative freeEdellie Alba MD Work Phone: [phone] [place], [place] [address]Fpkypjbpow54-15-0519sxzwqnutn, injectable, quadrivalent, preservative freeEdellie Alba MD Work Phone: [phone] [place], [place] [address]Oqudgbokdi79-87-7446twrsnglal virus vaccine, whole virusEdellie Alba MD Work Phone: [phone] [place] [address] Payers DatePayer CategoryPayerPolicy [id number] HEALTHSCOPE BENEFITS [id number] [facility] [phone] [address] [address] [place] [id number] 26-65-6728Yftlndx Health Insurance1.2.840.352299.1.13.159.2.7.3.417633.315 [id number] 2.16.840.6.809214.75516974-02-7962Fzbn-fka75-92-1570 [id number] 2.16.840.1.569053.3.57[id number] 2.16.840.1.784516.3.57[id number] 2.16840.1.576407.3.57[id number] 2.16840.1.662513.3.57[id number] 2.840.1.420480.3.57[id number] 2.840.1.837183.3.57[id number] 2.0.1.178562.3.57[id number] 2.0.1.013731.3.57[id number] 2.0.1.963609.3.57[id number] 2..1.035684.3.57[id number] 2.0.1.392633.3.57[id number] 2.0.1.676909.3.57[id number] 2.0.1.271235.3.57[id number] 2.0.1.437553.3.57[id number] 2.840.1.426176.3.57[id number] 2.840.1.639179.3.579.[id number] 2.16.840.1.694283.3.579.2.531 Social History DateTypeDetailFacilityUnknown if ever smokedNorth Fliptu Other Start: 10-30-2022 End: 10-08-6225Wkw Assigned At BirthOur [facility]tart: 10-16-2012 End: 26-19-2549Fbaybps smoking status NHISNever smoked tobaccoGlenbeigh Hospital Work Phone: Start: 10-16-2012 End: 40-39-8400Hfgkvte use and exposureSmokeless tobacco non-userGlenbeigh Hospital Work Phone: Start: 11-08-2019 End: 19-82-4977Kwavvzw intakeCurrent non-drinker of alcohol (finding)[facility]: 48-36-5718Ulv Assigned At BirthNot on fileOur Lady of Mercy Hospitaltart: 10-30-2022 End: 96-82-6321Fjrxbnm of Social functionOur Lady of Mercy Hospitaltart: 73-72-2096Hiemy Depression Screening Hywvqoktje0Iairaayzi ClinicStart: 12-16-2023 End: 40-59-9222Ydeurlvqp beverage intakeLifetime non-drinker (finding)[facility] HealthcareWithin the last [...] got money to buy more.Never trueNOMS HealthcareStart: 98-27-1451Sinnzwhbl65MSIO HealthcareStart: 11-13-2022 Alcohol CommentCaffeine intake: 2-3 cups per dayNOMS HealthcareSexFemale (finding)[facility]: 29-40-1625Unz Assigned At Female[facility] Medical Equipment Procedure CodeEquipment CodeEquipment Original TextEquipment IdentifierDates Simplex P Bone Cement Radiopaque Full Dose Individual Pack - [id number] Start: 92-79-3706Tfojvct P Bone Cement Radiopaque Full Dose Individual Pack - [id number]: 08-00-3621Opfv Fem 4 Lt Kn Cr Ivan Trthln - [id number]_impStart: 58-02-1732Ygn Tib 3 9mm Kn X3 Cr Trthln - [id number] Start: 98-71-6767Nfjg Pat 10mm 32mm Asym Trthln - [id number]_cobKjjum: 30-27-1475Klcf Pat 10mm 32mm Asym Trthln - [id number]: 03-30-2013 Baseplt Tib Trthln 4 Prim - [id number]_vfdHmgvn: 75-77-8409Vzzppgq Tib Trthln 3 Prim - [id number]: 03-30-2013 Functional Status QmugWpbzbpnjjmXccupsQuyyggmc13-34-2250Typagpt Health Questionnaire 2 item (PHQ- 2) [Reported][facility] Clinical Notes 01-30-2022 to 02-16-2025 Note Date & YnvdMefeCjxuqlta85-40-7855 NoteSubjective Patient ID: Naima Hernandez is a [...] LV function. Plan routine stress test, J Carlos protocol, to assess functional capacity and rhythm [...] Diabetes mellitus type II, non insulin dependent ([facility]) lisinopril 20 mg tablet Ambulatory referral to Endocrinology Orders Placed This Encounter Procedures Ambulatory referral to Endocrinology Standing Status: Future Expected Date: 02/16/2025 Expiration Date: 08/17/2025 Referral Priority: Routine Referral Type: Consultation Referral Reason: Specialty Services Required Requested Specialty: Endocrinology Number of Visits Requested: 1 No results found for this or any previous visit (from the past 36 hours). No follow-ups on file.[facility]10-08-2025 Evaluation note* Diagnosis Onset Date Resolution Status Admit Date Depression with anxiety acuteOctober 2024 8:46amHypercholesterolemiaacuteOctober 2024 8:46am Low back painacuteOctober 2024 8:46amRestless legacuteOctober 2024 8:46amType 2 diabetes mellitusacuteOctober 2024 8:46amAnxietyacuteNovember 2024 8:20amType 2 diabetes mellitusacuteNovember 2024 8:20am [facility] Work Phone: [phone] 886-132607-15-2025 Telephone encounter Note* Telephone Encounter - Enrique Alba MD - 11/09/2024 1:48 PM EDT I did review the patient's previous Holter monitor and both sections of her stress testing. I did a quick search on shortened AL interval during recovery phase only for Lexiscan and really could not find any significant information. Most of the problem seems to be with prolonged AL intervals. I did call the patient and [...] hips bother her and I refilled that. [facility] CenterJffchbuere20-18-7016 Miscellaneous Notes* Telephone Encounter - Enrique Alba MD - 11/09/2024 1:48 PM EDT I did review the patient's previous Holter monitor and both sections of her stress testing. I did a quick search on shortened AL interval during recovery phase only for Lexiscan and really could not find any significant information. Most of the problem seems to be with prolonged AL intervals. I did call the patient and [...] let me know, I would appreciate it. [phone]. July. documented in this encounterCapital Region Medical CenterBgfsmezjad75-18-9124 Telephone encounter Note* Telephone Encounter - Imelda Ramos MA - 11/09/2024 1:19 PM EDT Copied from VM: Pr, July, it is Mary Fullerming. I received [...] let me know, I would appreciate it. [phone]. July. [facility] CenterLwpysqxqov13-33-8510 History of Present illness Narrative* Enrique Alba [...] lifestyle. Aggravating factors: [facility] [employer] and intermittently she has it while she [...] Future - Holter monitor documented in this encounterCapital Region Medical CenterOscjwquzyg59-11-3437 History of Present illness Narrative* Enrique Alba MD - 08/02/2024 3:30 PM EDT Images from the original note were not included. Patient ID: aNima Hernandez is a 53 y.o. female who [...] Defines a morbid obesity documented in this encounterCapital Region Medical CenterJkguixnycz45-67-3067 Miscellaneous Notes* Telephone Encounter - Luis Eduardo [...] plantar calcaneal enthesophyte documented in this encounterNOMS Ckymsogeps55-63-1573 Telephone encounter Note* Telephone Encounter - Luis [...] midfoot arthrosis Small plantar calcaneal enthesophyte [facility] Zgpdyrhzjs13-28-9975 History of Present illness Narrative* Luis Eduardo Levine NP - 06/15/2024 6:10 PM EST HPI: [...] enthesophyte See telephone encounter. documented in this encounterCapital Region Medical CenterOmxfidqsaa08-23-6588 History of Present illness Narrative* Beatriz Chavis [...] improve. Beatriz Chavis NP documented in this encounterCapital Region Medical CenterDvefucfksm19-68-9009 History of Present illness Narrative* Enrique Alba [...] Dispense:7 tablet; Refill: 0 documented in this encounterCapital Region Medical CenterEhlttbumwg55-23-9764 History of Present illness Narrative* OSVALDO Wilks [...] glucose tolerance) 09/17/2022 Hepatitis 09/17/2022 HTN (hypertension) ([facility]) 09/17/2022 Insomnia due to other mental disorder 09/17/2022 Mixed dyslipidemia ([facility]) 09/17/2022 Morbid obesity ([facility]) 09/17/2022 Obstructive sleep apnea hypopnea, moderate 09/17/2022 Osteoarthritis of joint of toe of right foot 09/17/2022 Other chronic pain 09/17/2022 Overactive bladder 09/17/2022 Primary osteoarthritis, right hand 09/17/2022 Recurrent major depressive disorder, in partial remission (HCC) ([facility]) 09/17/2022 Sleep disorder 09/17/2022 Status post bilateral knee replacements 09/17/2022 Enuresis 09/17/2022 Urinary incontinence 09/17/2022 Adult BMI 45.0-49.9 kg/sq m ([facility]) 05/14/2023 Restless leg syndrome 08/14/2023 Pre-diabetes [...] nursing note reviewed. Exam conducted with a meat dresser present. Vitals: Estimated body mass index is [...] behalf of: OSVALDO Wilks documented in this encounterCapital Region Medical CenterUhsmgcatrh69-28-0163 History of Present illness Narrative* Enrique Alba [...] which is the [facility] I was [facility]. A new prescription for the 160 mg was sent. documented in this encounterCapital Region Medical CenterGvaiklqsqv09-38-3311 History of Present illness Narrative* Enrique Alba MD - 02/25/2024 3:30 PM EDT Images from the original note were not included. Patient ID: Naima Hernandez is a 53 y.o. female who presents for: See Scanned Wellness packet Advance Directive/Living Will: No Health Care Power of Health Care Specialist: No Review of Systems Constitutional: Positive for [...] a living will, durable power of deputy attorney general for healthcare, or other advanced directives. We [...] mammogram with tomosynthesis; Future documented in this encounterNOSaint Louis University HospitalOpmncddjhv58-77-8564 Telephone encounter Note* Telephone Encounter - Enrique Alba MD - 12/25/2023 11:16 AM EDT Rx sent [facility] CenterWlhmxubonp17-97-9696 Miscellaneous Notes* Telephone Encounter - Enrique Alba MD - 12/25/2023 11:16 AM EDT Rx sent documented in this encounterCapital Region Medical CenterUkkxmynucv12-31-3320 History of Present illness Narrative* Enrique Alba [...] 45.0-49.9 kg/sq m (CMS/HCC) documented in this encounterCapital Region Medical CenterXpnyzctlbo16-54-2953 NoteHNO ID: [id number] Author: Taylor Gee RD Service: ? Author Type: Registered Dietitian Type: Progress Notes Filed: 12/05/2022 2:43 PM Note Text: [facility] Nutrition Therapy: Virtual Consult - Initial Assessment I have communicated my name and active licensure. The patient?s identity and physical location were verified at the time of this visit. Either the patient or their legal payable representative has been informed of the risks [...] Slimfast High Protein, Atkins, Fairlife Core Power, [employer] Nutrition Plan 6. Choose lean protein sources [...] cheese or fruit or none Lunch - 01h-8wd-nonkv w/ chicken/ham, makenzie, onion, pepper FF ranch [...] Fullerming DATE: 12/05/2022 TIME: 2:05 PM PAGER: [phone] [facility]08-[facility] History of Present illness Narrative* Taylor Gee RD - 12/05/2022 2:02 PM EDT [facility] Nutrition Therapy: Virtual Consult - Initial Assessment I have communicated my name and active licensure. The patient s identity and physical location wereverified at the time of this visit. Either the patient or their legal payable representative has been informed of the risks [...] cheese or fruit or none Lunch - 96l-1oh-pruxc w/ chicken/ham, makenzie, onion, pepper FF ranch [...] Hernandez DATE: 12/05/2022 TIME: 2:05 PM PAGER: [phone] documented in this encounterGlenbeigh Hospital07-05-2023 NoteHNO ID: [id number] Author: Radha Hernandez MD Service: ? Author Type: Physician Type: Progress Notes Filed: 10/30/2022 2:34 PM Note Text: Hepatology Clinic Mindy Richey MD, FACG, FAASLD Director, [facility] Hepatology [facility] Consult Requested By: Mike Salgado [address] [facility] [address] for evaluation of her fatty liver .. [...] no edema no spiders no palmar erythema LINING FELLER BLINDSTITCH no asterixis , a+0 X3 Glucose Date [...] Radha Richey MD Consider seeing me at [facility] on a Thank you again for your kind referral. Please feel free to contact me if I can be of further assistance to you {I spent 45 minutes in the visit, with more than 50% of the total tsxx-ht-dcpp time of the visit in counseling / coordination of care.[facility]07-05-2023 History of Present illness Narrative* Radha Hernandez MD - 10/30/2022 1:30 PM EDT Images from the original note were not included. Hepatology Clinic Mindy Richey MD, FACG, FAASLD Director, [facility] Hepatology [facility] Consult Requested By: Mike Salgado [address] [facility] [address] for evaluation of her fatty liver .. [...] no edema no spiders no palmar erythema LINING FELLER BLINDSTITCH no asterixis , a+0 X3 Glucose Date [...] Radha Richey MD Consider seeing me at [facility] on a Thank you again for your kind referral. Please feel free to contact me if I can be of further assistance to you {I spent 45 minutes in the visit, with more than 50% of the total kpll-th-dpim time of the visit incounseling / coordination of care. documented in this encounterGlenbeigh Hospital04-06-2023 NoteHNO ID: [id number] Author: Mariajose Stallworth MD Service: ? Author Type: Physician Type: Progress Notes Filed: 08/01/2022 3:52 PM Note Text: Rheumatology Outpatient Clinic Date of Service: 08/01/2022 Patient: Naima Hernandez Medical Record: [id number] Primary Care Physician: Zeferino Flores Last Rheumatology visit: None at [facility] History of Present Illness Naima Hernandez [...] , low transverse COLONOSCOP W/ OR W/O [facility] SPEC Colonoscopy EGD EXTRACTION, ERUPTED [...] mouth as needed. meloxicam (more content not included)...[facility]04-06-2023 History of Present illness Narrative* Mariajose Stallworth MD - 08/01/2022 3:09 PM EDT Images from the original note were not included. Rheumatology Outpatient Clinic Date of Service: 08/01/2022 Patient: Naima Hernandez Medical Record: [id number] Primary Care Physician: Zeferino Flores Last Rheumatology visit: None at [facility] History of Present Illness Naima Hernandez [...] , low transverse COLONOSCOP W/ OR W/O [facility] SPEC Colonoscopy EGD EXTRACTION, ERUPTED [...] There is narrowing of all interphalangeal joints. Cafeteria Server: MARJ Transcribe Date/Time: Oct 10 2019 10:51A... Last MRI Hand - Impression Only No resulted procedures found. Last XR Chest - Impression Only No resulted procedures found. Last XR Cervical Spine - Impression Only No resulted procedures found. Health Maintenance Current Immunizations Never Reviewed Name Date COVID-19 vaccine, bivalent ([employer]) 01/15/2022 COVID-19 vaccine, monovalent ([employer]) 07/27/2021 , 03/08/2021 , 08/04/2020 Physical Exam [...] which included preparing to see the patient, ykjf-oy-qesa patient care, completing clinical documentation, obtaining and/or [...] 2022 Time: 3:09 PM documented in this encounterGlenbeigh Hospital01-10-2023 Evaluation note* Encounter Date Diagnosis Assessment Notes Treatment Notes Treatment Clinical Notes Apr, Fatty liver (ICD-10 - K76.0) LABS PATIENT ENCOURAGED WEIGHT LOSS. REFERRAL TO WEIGHT LOSS CLINIC WITH DR. LI. Apr,Elevated liver enzymes (ICD-10 - R74.8) [facility] Other 10-05-2022 Evaluation note* Encounter Date Diagnosis [...] start vitamin e and milk thistle OTC [facility] Other Evaluation noteNo InformationNort F[facility]pt[facility] Other Evaluation note* Diagnosis Erosive osteoarthritis of both hands- Primary Primary osteoarthritis involving multiple joints NSAID long-term use Encounter for long-term (current) use of non-steroidal anti-inflammatories documented in this encounter [facility] HospitalEvalusaint [facility] note* Diagnosis Fatty liver- Primary Other chronic nonalcoholic liver disease Class 3 severe obesity due to excess calories in adult, unspecified BMI, unspecified whether serious comorbidity present (HCC) documented in this encounter [facility] HospitalEvaluation [facility]* Diagnosis Fatty liver Other chronic nonalcoholic liver disease documented [facility] this encounter [facility] HospitalEvaluation [facility]* Diagnosis Encounter for wellness examination in adult- Primary Advance directive discussed with patient Morbid obesity ([facility]/HCC) Morbid obesity Adult BMI 45.0-49.9 kg/sq m ([facility]/HCC) Glucose intolerance (impaired glucose tolerance) Impaired glucose tolerance test Mixed hyperlipidemia (CMS/HCC) Mixed hyperlipidemia Primary hypertension ([facility]/HCC) Unspecified essential hypertension Menopausal and female climacteric states Osteoporosis screening Special screening for osteoporosis Encounter for follow-up examination after completed treatment for conditions other than malignant neoplasm Screening mammogram for breast cancer documented in this encounter [facility] HealthcareEvaluation note* Diagnosis Mixed dyslipidemia ([facility]/HCC) documented in this encounter [facility] HealthcareEvaluation [facility]* Diagnosis Pre-diabetes- Primary Other abnormal glucose Restless leg syndrome Restless legs syndrome (RLS) Mixed dyslipidemia ([facility]/HCC) documented in this encounter [facility] HealthcareEvaluation note* Diagnosis Well woman exam with routine gynecological exam Routine gynecological examination Yeast infection of the skin Candidiasis of skin and nails documented in this encounter [facility] HealthcareEvaluation note* Diagnosis Pre-diabetes Other abnormal glucose documented in this encounter [facility] note* Diagnosis Acute non-recurrent pansinusitis- Primary documented in this encounter [facility] note* Diagnosis Insomnia due to other mental disorder Recurrent major depressive disorder, in partial remission (HCC) ([facility]) Morbid obesity ([facility]/HCC) Morbid obesity Adult BMI 45.0-49.9 kg/sq m ([facility]) documented in this encounter [facility] HealthcareEvaluation note* Diagnosis Recurrent major depressive disorder, in partial remission (HCC) ([facility])- Primary documented in this encounter NOMS [...] major depressive disorder, in partial remission (HCC) ([facility]) Primary hypertension ([facility]/HCC) Unspecified essential hypertension Mixed dyslipidemia (CMS/HCC) Pre-diabetes Other abnormal glucose Morbid obesity (CMS/HCC) Morbid obesity Adult BMI 45.0-49.9 kg/sq m (CMS/HCC) documented in this encounter [facility]* Diagnosis Palpitations- Primary Tachycardia Unspecified tachycardia documented in this encounter [facility] HealthcareEvaluation note* Diagnosis Palpitations- Primary Primary hypertension Unspecified essential hypertension Bilateral hip pain Pain in joint, pelvic region and thigh documented in this encounter [facility] HealthcareEvaluation note* Diagnosis Onset Date Resolution Status Admit Date Depression with anxiety acuteOctober 2024 8:46am [facility] Work Phone: History general Narrative - Reported* Type Description Date Medical History Unspecified essential hypertensi on Medical HistoryHypercholesterolemiaMedical HistoryDepression with anxiety Surgical HistoryC/Hdfitka3930Vhycbtxx HistoryBilateral knee rrvitfzduqh0767 Surgical HistorycholecystectomySurgical Historywisdom teethSurgical Historycyst removalHospitalization HistorySee past surgical hx [employer] [facility] [employer] Other Reason for referral (narrative)No reason for referral information availableKettering Memorial Hospital Work Phone: Reason for visit NarrativePT HERE REQ OF DR. ALBA FOR ELEVATED LIVER ENZYMES, (referral note received)[employer] Other Summary Purpose Family History Relationship Condition [...] THERAPY MEDICAL NUTRITION ASSMT&IVNTJ INDIV EACH 15 MA MEDICAL NUTRITION ASSMT&IVNTJ INDIV EACH 15 MA MEDICAL NUTRITION ASSMT&IVNTJ INDIV EACH 15 MA MEDICAL NUTRITION ASSMT&IVNTJ INDIV EACH 15 MA Radha Abdul MD [address] [address] Referral IDStakanuTaraDaija DateExpiration DateVisits RequestedVisits [id number] PCP Requested Referral Chief Complaint and Reason [...] section and content) DATE CREATED AUTHOR 12/24/2019 [facility] DATE CREATED AUTHOR AUTHOR'S ORGANIZ ATION 11/14/2021 [facility] DATE CREATED AUTHOR AUTHOR'S ORGANIZ ATION 03/07/2022 [facility] DATE CREATED AUTHOR AUTHOR'S ORGANIZ ATION 12/06/2022 [facility] DATE CREATED AUTHOR AUTHOR'S ORGANIZ ATION 09/04/2024 [facility] DATE CREATED AUTHOR AUTHOR'S ORGANIZ ATION 02/21/2025 [facility] REASON FOR VISIT (unrecogniz ed section and content) ReasonCommentsNew PatientArthritis in handsJoint PainReasonCommentsNew Patient Consult for fatty liverSpecialtyDiagnoses / ProceduresReferred By Contact Referred To ContactGastroenterology / GASTROENTEROLOGY Diagnoses Encounter for follow-up examination after completed treatment for conditions other than malignant neoplasm Fatty liver Procedures OFFICE/OUTPATIENT ESTABLISHED MOD MDM 30-39 MIN NEW DDI PATIENT Mike Salgado DO [address] [place] [address] Radha Abdul MD [address] [place] [address] Referral IDStatusReasonStart DateExpiration DateVisits RequestedVisits [id number]/5/202312/[id number] Education AssessmentSpecialtyDiagnoses / ProceduresReferred By ContactReferred To Contact Nutrition Diagnoses Fatty liver Procedures CONSULT TO NUTRITION THERAPY MEDICAL NUTRITION ASSMT&IVNTJ INDIV EACH 15 MA MEDICAL NUTRITION ASSMT&IVNTJ INDIV EACH 15 MA MEDICAL NUTRITION ASSMT&IVNTJ INDIV EACH 15 MA MEDICAL NUTRITION ASSMT&IVNTJ INDIV EACH 15 MA Radha Abdul MD [address] [place] [address] Referral IDStatusReasonStart DateExpiration DateVisits RequestedVisits [id number] PCP Requested Referral /[id number] ExamReasonCommentsMed Change Request ReasonCommentsResultsReasonCommentsWell Women VisitReasonCommentsURIReason CommentsAnxietyReasonCommentsMed RefillReasonCommentsHypertensionHyperlipidemia AnxietySleeping ProblemReasonCommentsPalpitationsReasonOnset DateCommentsCare Czuhxwuxwqey90/15/2025 Source Comments (unrecognize d section and content) In the event this informatio n is protected by the Federal Confidentiality of Alcohol and Drug Abuse Patient Records regulations: The Federal rules restrict any use of the information to criminally investigate or prosecute any alcohol or drug abuse patient.[facility] HospitalIn the event this information is protected by the Federal Confidentiality of Alcohol and Drug Abuse Patient Records regulations: The Federal rules restrict any use of the information to criminally investigate or prosecute any alcohol or drug abuse patient.[facility] HospitalIn the event this information is protected by the Federal Confidentiality of Alcohol and Drug Abuse Patient Records regulations: The Federal rules restrict any use of the information to criminally investigate or prosecute any alcohol or drug abuse patient.[facility] Care Teams (unrecognized sec tion and content) Team MemberRelationshipSpecialtyStart DateEnd Date Zeferino Flores PCP - GeneralInternal Medicine08/26/12Te MemberRelationshipSpecialtyStart Date End Date Zeferino Flores PCP - GeneralInternal Medicine08/26/12Temichael MemberRelationshipSpecialtyStart Date End Date Zeferino Flores PCP - GeneralInternal Medicine08/26/[address] [facility] [address] [id number] Registered DietitianNutrition12/05/22am MemberRelationshipSpecialtyStart Date End Date Enrique [...] DateEnd Date Enrique Alba MD [address] [place] [address] PCP - GeneralFamily Medicine523Team MemberRelationshipSpecialtyStart DateEnd Date Enrique Alba MD [address] [place] [address] PCP - GeneralFamily Medicine5//23Team MemberRelationshipSpecialtyStart DateEnd Date [...] Member Role Status Dates Maribeth Galvez APRN STORY ANALYST-C Primary Care Provider Active Team Status: Inactive Member Role Status Dates Maribeth Galvez APRN STORY ANALYST-C Primary Care Provider Active Start: February 02, 2025 End: February 02, 2025Maribeth Galvez APRN STORY ANALYST-CAttending ProviderActive Start: February 02, 2025 End: February 02, 2025 Team Status: Active Member Role/Relationship Status Dates Maribeth Galvez APRN STORY ANALYST-C Primary Care Provider Active Team Status: Inactive Member Role/Relationship Status Dates Maribeth Galvez APRN STORY ANALYST-C Primary Care Provider Active Start: February 02, 2025 End: February 02, 2025Maribeth Galvez APRN STORY ANALYST-CAttenwillie ProviderActive Start: February 02, 2025 End: February 02, 2025 Team Status: Inactive Member Role/Relationship Status Dates Maribeth Galvez APRN STORY ANALYST-C Primary Care Provider Active Start: February End: March 02, 2025Maribeth Galvez APRN STORY ANALYST-CAttending ProviderActive Start: March 02, 2025 End: March [...] BE BASED ON THE PRIMARY CLINICAL RECORDS. [employer] [facility]. provides no warranty or guarantee of the accuracy or completeness of information in this document.
--- NOTE | 2025-03-07 09:00 | CA_ITS ---
Patient Name: NAIMA HERNANDEZ MR#: [id number] : 1970 Exam Date: 03/07/2025 Ordering Doctor: SOURAV SALDANA ECHOCARDIOGRAM REPORT PROCEDURE: CA ECHO DOPPLER COMPLETE INDICATIONS: LVH, SOB COMPARISON: None. DESCRIPTION: COMPLETE ECHOCARDIOGRAM Real-time transthoracic echocardiography with 2D, M-mode, spectral and color flow Doppler performed. QUALITY: Technical quality was good. LEFT VENTRICLE: Normal chamber size. Severe concentric left ventricular hypertrophy. LV EF: Global left ventricular systolic function is hyperdynamic; visually estimated ejection fraction is 65 to 70%. No wall motion abnormalities. DIASTOLIC: Grade I diastolic dysfunction. ATRIAL SEPTUM: Inadequately seen. LEFT ATRIUM: Normal chamber size. RIGHT ATRIUM: Normal chamber size. RIGHT VENTRICLE: Normal chamber size. Normal right ventricular systolic function. TRICUSPID VALVE: Normal mobility and thickness. No stenosis with trivial regurgitation. Unable to assess right-sided pressures due to lack of measurable tricuspid regurgitation MITRAL VALVE: Mildly thickened with normal mobility. No evidence of mitral valve stenosis. Mitral annular calcification. No mitral regurgitation. AORTIC VALVE: Normal trileaflet appearance. Thickened aortic valve. Normal leaflet mobility. No evidence of aortic valve stenosis. No aortic regurgitation. AORTIC ROOT: Normal diameter and appearance. PULMONIC VALVE: Normal thickness and mobility. No stenosis. Trivial regurgitation. PERICARDIUM: Anterior free space; trivial effusion versus fat pad. IVC: Collapses with inspiration. Normal size. STRAIN: Global longitudinal strain (4CH) -12.9%, (2CH) -15.3%, (APLAX) -13.4%, (average) -13.8%. Strain pattern not consistent with specific entity; mildly decreased measurements particularly in the anteroseptal region. No prior studies to compare. CONCLUSION: 1. Global left ventricular systolic function is hyperdynamic; visually estimated ejection fraction is 65 to 70% 2. Severe left ventricular hypertrophy 3. Grade 1 diastolic dysfunction 4. Normal right ventricular size and systolic function 5. No significant valvular abnormalities 6. Anterior free space; trivial effusion versus fat pad Adult Echocardiography Procedure Report Left Ventricle LVEDD (3.7 - 5.6 cm): 3.49 cm LVESD (2.2 - 4.0 cm): 2.61 cm LVIVS thickness (0.6 - 1.2 cm): 1.75 cm LVPW thickness (0.5 - 1.0 cm): 1.82 cm e': 0.09 m/s E - e': 6.70 LVOT Max Gradient: 3.32 mm[Hg] LVOT Area (cm2): 0.91 m/s Peak Velocity (LVOT): 0.91 m/s Mean Velocity (LVOT): 0.65 m/s LVOT Diameter 2.28 cm Left Ventricular Ejection Fraction: 62.97 % Left Atrium LA Volume Index (2D A2C): 25.10 ml/m2 Left Atrium Systolic Dimension: 4.60 cm Mitral Valve MV E to A Ratio: 0.77 Mitral Valve A-Wave Peak Velocity: 0.81 m/s Mitral Valve E-Wave Peak Velocity: 0.62 m/s Right Ventricle RV Internal Diastolic Dimension: 3.22 cm Aorta AO Root Diam: 3.36 cm Ascending Ao Diam: 3.19 cm Aortic Valve AoV Area (Peak Grayson): 2.85 cm2, 2.85 cm2 AoV Area (VTI): 3.09 cm2, 3.09 cm2 Peak Velocity(Antegrade Flow): 1.31 m/s Peak Gradient(Antegrade Flow): 6.88 mm[Hg] Mean Velocity(Antegrade Flow): 0.91 m/s Mean Gradient(Antegrade Flow): 3.79 mm[Hg] Velocity Time Integral: 21.03 cm Tricuspid Valve Peak Velocity (Regurgitant Flow): 1.74 m/s Pulmonic Valve Peak Velocity: 0.86 m/s Peak Gradient: 2.91 mm[Hg], 3.01 mm[Hg] Right Atrium Right Atrium Systolic Pressure: 34.13 ml, 34.13 ml Dictated by: Vianney Johnston M.D. on 03/07/2025 at 11:21 Approved by: Vianney Johnston M.D. on 03/07/2025 at 11:28
--- NOTE | 2025-03-07 09:25 | PC.NURSE ---
Nursing Note Cardiac Stress Test Reviewed: Medication, allergies and patient history reviewed. Stress Test: [x ] Patient tolerated stress test well. [ ] Patient unable to tolerate walking on treadmill. Switched to Lexiscan stress test. [x ] No chest pain noted per patient [ ] Chest pain that resolved prior to leaving stress lab. [ ] No dyspnea noted. [x ] Dyspnea that resolved prior to leaving stress lab. [x ] Patient left stress lab asymptomatic and hemodynamically stable. [ ] Patient taken to the Emergency Room due to non-resolving symptoms following stress test. [x ] Patient achieved target heart rate. [ ] Patient unable to achieve target heart rate. [ ] Aminophylline administered as reversal agent to Lexiscan (Regadenoson). [ ] Nitro administered. Nursing Comments:Pt did well on TM Dr. Gillette was in room for test.Pt was on the J Carlos protocol and did well. No CP and SOB resolved with rest.
--- NOTE | 2025-03-07 09:45 | PM.STRESS ---
Stress Test Stress Test Requesting physician: SOURAV SALDANA Procedure: J Carlos protocol stress test General Information: Reason for Stress Test: Palpitations with exercise Cardiac History and Risk Factors: Hypertension, family history CAD Resting 12 - Lead Electrocardiogram: Normal sinus rhythm 87 bpm, reversal of leads V2-V3 Stress Test: Protocol: J Carlos Exercise Capacity: Able to exercise to stage 7 (7 METS) Blood Pressure Response: Normal Rhythm: During exercise there significant ventricular ectopy which began in Stage 5 and was symptomatic, including prolonged ventricular bigeminy. This resolved at peak exercise and recurred in recovery. ST - Response: None Patient Response: Palpitations during exercise Interpretation: Significant and sustained ventricular ectopy including ventricular bigeminy observed during exercise. No ischemic ST changes were observed. Also noted was an early increase in sinus heart rate to 108 beats per minute in Stage 1 indicative of deconditioning.
== END 2025-03-07 07:21 | disposition home or self-care (01) ==
LOC: CARD 07:20
PROVIDERS: PCP Nurse Practitioner Family; Visit Provider Internal Medicine Cardiovascular Disease
DX: Z12.31 Encounter for screening mammogram for malignant neoplasm of breast (principal); I51.7 Cardiomegaly; R06.02 Shortness of breath
CPT/HCPCS: 77063; 77067; 93017; 93306; 93356

== ENCOUNTER 2025-03-22 07:10 | Outpatient (OUT) | payer OTHER, SELFPAY ==
--- OUTSIDE RECORDS SUMMARY | 2025-03-22 07:13 | XMS_ITS | Continuity of Care Document ---
Author Organization [facility] Address [address] [place] [id number] Phone Care Team Providers Care Office Manager Receptionist Name Role Phone Maribeth Galvez APRN Primary Care Provider Maribeth Galvez APRN Attending Provider Care Teams Patient Care Team Team Status: Active Member Role/Relationship Status Dates Maribeth Galvez APRN DENIAL MANAGEMENT REPRESENTATIVE-C Primary Care Provider Active Visit Care Team Team Status: Inactive Member Role/Relationship Status Dates Maribeth Galvez APRN DENIAL MANAGEMENT REPRESENTATIVE-C Primary Care Provider Active Start: February 02, 2025 End: February 02, 2025Maribeth Galvez APRN DENIAL MANAGEMENT REPRESENTATIVE-CAttending ProviderActive Start: February 02, 2025 End: February 02, 2025 Visit Care Team Team Status: Inactive Member Role/Relationship Status Dates Maribeth Galvez APRN DENIAL MANAGEMENT REPRESENTATIVE-C Primary Care Provider Active Start: February End: March 02, 2025Maribeth Galvez APRN DENIAL MANAGEMENT REPRESENTATIVE-CAttending ProviderActive Start: March 02, 2025 End: March [...] 8:46am Anxiety March 02, 2025 8 :20am Hypercholesterolemia March 02, 2025 8:20am Low back pain March 02, 2025 8 :20am Restless leg March 02, 2025 8 :20am Type 2 diabetes mellitus March 02, 8:20am Allergies, Adverse Reactions, Alerts Allergen Type Severity Reaction Last Updated Verified Status No Known Allergies Allergy Unknown March 02, 2025 8:30amYesActive Social History Smoking Status Status Start Date End Date Date of Observa tion Never smoked tobacco (finding) February 02, 2025 9:00am Observation Status Observation Response Date of Response Legal Sex Female (finding) Sex Assigned At BirthFemaleMay 1970 Family History Relationship Condition Age at [...] Daily February 20, 2025 11:00pmComplies with drug therapyBlood-Glucose Sensor (Freestyle Ana 2 Plus Sensor) deviceActive0.Dnhhq80NkeaiveaMarch 15, 2025 12:00am Type 2 diabetes mellitus Type 2 diabetes mellitus without complicationsAs directedTirzepatide (Mounjaro) 2.5 mg/0.5 mL pen injectorActive2.5MGSUBCUTevery week2.2024 8:57amType 2 diabetes mellitus Type 2 diabetes mellitus without complicationsfor 4 weeksUnknownAtorvastatin 20 mg nfyvcaUwphmwdwizrn44BDBBWeorq at bedtimeDecebanner desert medical center 2017 12:00amOct2024 7:58amhyperlipidemiaSertraline 100 mg gjpvzeOehpshyagoad312UKZIEdaxg at bedtimemarlette regional hospital2017 12:00amOctcaverna memorial hospital 2024 7:59amLosartan 100 mg xmigyhLretzzofrysb887KEVUBbvtd at bedtimemarlette regional hospital2017 12:00amOctcaverna memorial hospital 2024 7:59amhtnDocusate Sodium (Colace) 100 mg fvgkscxAkmltexeuqoi899XDHAZvjyi daily as needed for lcyqjqovungl200Jfjixanz 10th, 2018 9:46amOctcaverna memorial hospital 2024 7:58amIbuprofen 600 mg roddxpIufiswrquubh984MUIEY1P as needed for ezxz940 April 06, 2018 12:00amOctcaverna memorial hospital 2024 7:59amBuspirone 5 mg tabletActive5 MGPOTwice eijeg80536Mhjkujbw 5th, 2025 12:00amAnxiety Anxiety disorder, unspecifiedComplies with drug therapyTirzepatide (Mounjaro) 2.5 mg/0.5 mL pen injectorDiscontinued2.5MGSUBCUTevery week2.5300March 02, 2025 12:00amNove2024 8:58amType 2 diabetes mellitus Type 2 diabetes mellitus without complicationsfor 4 weeksBlood- Glucose,Leather Cleaner,Cont (Dexcom G7 Leather Cleaner) miscDiscontinued0.Bakqv70HtmfnyviMarch 02, 2025 12:00amN2024 1:26pmCheck blood sugar dailyBlood-Glucose Sensor (Dexcom G6 Sensor) deviceDiscontinued0.Hgqcn26JmhjuzxsMarch 02, 2025 12:00am March 09, 2025 1:26pmTo check blood sugar dailyRopinirole 1 mg tabletActive 1MGPODaily at bedtimeOct2024 11:00pmadminister 1-3 hours before bedtimeComplies with drug therapyGabapentin 100 mg kxyzweyLbalcb330LVAKNeecg times daily as neededOct2024 11:00pmComplies with drug therapy Semaglutide (Ozempic) 0.25 mg or 0.5 mg(2 mg/1.5 mL) pen injectorDiscontinued 0.25MGSUBCUTevery weekOct2024 11:00pmOctcaverna memorial hospital 2024 7:15pmfor 4 weeksSertraline (Zoloft) 25 mg iefahvBpoucjdywnhi74KFGKAujyq08136Kudpote 7th, 2025 11:00pmMarch 02, 2025 8:48amAnxiety with depression Other specified anxiety disordersSemaglutide (Ozempic) 0.25 mg or 0.5 mg(2 mg/1.5 mL) pen injectorDiscontinued0.25MGSUBCUTevery week1.50Oct2024 7:14pmMarch 02, 2025 8:52amType 2 diabetes mellitus Type 2 diabetes mellitus without complicationsfor 4 weeks Immunizations Immunization Event Date Not Given Reason Dose Number Equipment Sales Specialist Lot Number Reason(s) Given Vaccine Information Statement (VIS) Detail Administration Location Influenza, seasonal, injectable, pf February [id number] [facility] Relevant Diagnostic Tests and/or Laboratory Data Laboratory Results Test Collection Date/Time Result Date/Time Result Interpretation Reference Range Result Comment Performing Site Bedside Hemoglobin A1c March 02, 2025 9:18am Novem 2024 9:19am 6.5 % Vital Signs Vital Reading Result Reference Range Collection Date/Time Height 63 [in_i] February 02, 2025 7:29ggMjsobz327.92 [facility] 7:54amBody Temperature 97.7 [degF]97.6-99.0[facility] 2024 7:54amHeart Zhvf285 /wvu76-720Jwahipt 8th, 2025 7:54amOxygen saturation by Pulse qugjttlf82 %95-100[facility]2024 7:54amBP Onreebst072 mm[Hg]100-140February 02, 2025 7:54amBP Bjwgkombj89 mm[Hg] 60-100[facility]2024 7:54amBMI (Body Mass Index)47.9 kg/t0[place] 2024 7:43oqByogeb47 [in_i]March 02, 2025 8:21dnAmxujl504.10 [facility] 8:27amHeart Jouu992 /szx65-881PiwcpdzqMarch 02, 2025 8:27amRespiratory rate14 /min 12-24March 02, 2025 8:27amOxygen saturation by Pulse zdlaqiiw85 %95-100 March 02, 2025 8:27amBP Wyedvkmv318 mm[Hg]100-140March 02, 2025 8:27amBP Osutloxzh523 mm[Hg]60-100March 02, 2025 8:27amBMI (Body Mass Index)47.2 kg/m0ZozmdwulMarch 02, 2025 8:27am Advance Directives Advance Directive Response Recorded Date/ Time Advance Directives No February 4:41pm Insurance Providers Guarantor Javed Cuadra Address [address] [id number] Info.Home Phone: Payer Group Member ID Coverage Type Subscriber Relationship to Subscriber Effective Date Expiration Date [employer] Id: [id number] B Fleming , D Id: [id number] [address] [id number] Home Phone: Encounters Encounter Location(s) Arrival/Admit Date Discharge/Departure Date Discharge/Departure Disposition Provider(s) Departed Physician/ Provider Office Visit -[facility] February 02, 2025 8:46am February 02, 2025 9:46am Discharged to home care or self care (routine discharge) Maribeth Galvez APRN CNP Departed Physician/ Provider Office Visit -[facility] March 02, 2025 8:20am March 02, 2025 [...] 2025 8:46am Anxiety Unknown March 02 8:20am Hypercholesterolemia Unknown February 8:20am Low back pain Unknown March 02 8:20am Restless leg Unknown March 02 8:20am Type 2 diabetes mellitus Unknown 2024 8:20am Assessments Diagnosis Onset Date Resolution Status Admit Date Depression with anxiety acuteFebruary 02, 2025 8:46amHypercholesterolemiaacuteOctober 2024 8:46am Low back painacuteOctober 2024 8:46amRestless legacuteOctober 2024 8:46amType 2 diabetes mellitusacuteOctober 2024 8:46amAnxietyacuteNovember 2024 8:20amHypercholesterolemiaacuteNovember 2024 8:20amLow back pain acuteNovember 2024 8:20amRestless legacuteNovember 2024 8:20amType 2 diabetes mellitusacuteNovember 2024 8:20am Plan of Treatment Author Maribeth Galvez [facility]edoAuthoredNovdign[facility] 2024 9:34amPatient is not suicidal or homicidal at this time. Discussed treatment options with patient today. It was decided in collaboration with the patient to start Buspar daily for management of anxiety. Medication profile and possible SE reviewed with [...] verbalizes understanding and agrees to treatment plan. A1c is down to 6.5. Reports that she is having abdominal pain, nausea, diarrhea since starting the Ozempic. Due to side effects will order Mounjaro as pt does need treatment for her diabetes and GLP-1 is working to control her blood glucose levels. GLP-1 is beneficial for her treatment. But due to side effects will change GLP-1 being used. ??Prior to your visit today we reviewed [...] Barriers to these goals have been discussed. Discussed importance of maintaining an LDL level at specified goal. Discussed associated risk factors of hyperlipidemia including stroke and heart attack. Treatment with medications discussed and we have agrees upon appropriate action of treatment and goals. Discussed dietary modifications, including decreasing red meat consumption, decreased alcohol consumption, avoiding fried foods, and cake and cookies, and sweets. Encouraged increasing fiber in diet and eat a diet rich in omega-3. Encouraged to exercise at least 150 minutes weekly. Barriers to plan of care have been addressed. Follow-up as directed. Patient given a copy of the plan of care. Continue Ropinirole. Beneficial for symptoms Uses Gabapentin as needed when has flare of back pain sciatica. Does not need refills today. Author aMribeth Galvez [facility] ToledoAuthoredOctober 2024 7:55xsP1w 7.4 Continue Ozempic ??Prior to your visit [...] scheduled test information is unavailable Pending Tests Test Name Ordered Date Scheduled Date Comprehensive Metabolic Panel March 05, 2025 9:35am Future Visits Future appointment information is unavailable Future Procedures Procedure Name Ordered Date Scheduled Date Complete Blood Count Auto Diff March 05 9:35am Lipid PanelNovember 2024 9:35amMicroAlb Creat Ratio,UNovember 2024 9:35am Future Medications Future medication information is unavailable Patient Instructions Instruction Admit Date Low back pain in adults February 02 8:46am Low back pain in adults March 02 8:20am
--- OUTSIDE RECORDS SUMMARY | 2025-03-22 07:13 | XMS_ITS | Clinical Summary ---
Author Organization [facility] Address [address] [place] [address] Care Team Providers Care Costume Designer Name Role Phone BarryNorris Primary Care Provider [phone] Maribeth Galvez DARKROOM TECHNICIAN Unavailable [phone] Allergies Active AllergyReactionsCriticalityNoted DateCommentsDuloxetine Hcl10/15/2021 Other Reaction(s): severe drowsiness MetforminGI rugivysthql04/14/2024 Medications MedicationSigDispense QuantityRefillsLast FilledStart DateEnd DateStatus diclofenac [...] (160 mg) by mouth Daily 90 tablet 5Active gabapentin (Neurontin) 100 MG capsule Indications:Bilateral hip painTake 1 capsule (100 mg) by mouth 3 (three) times a day as needed (hip pain) 90 capsule 50/501/6Active nebivolol (Bystolic) 5 MG tablet Indications:PalpitationsTake 1 tablet (5 mg) by mouth Daily 30 tablet 5Active rOPINIRole (Requip) 1 MG tablet Indications:Restless Leg SyndromeOne tablet at bedtime 90 tablet 5Active Ozempic, 0.25 or 0.5 MG/DOSE, 2 MG/3ML solution pen-injector INJECT 0.5 MG UNDER THE SKIN ELWXWQ555Active lisinopril 20 MG tablet Take 20 mg by mouth in the morning.6Active sertraline (Zoloft) 25 MG tablet Take 25 mg by mouth in the morning.5Active busPIRone (Buspar) 5 MG tablet Take 5 mg by mouth in the morning and 5 mg in the evening.5Active Tirzepatide (Mounjaro) 2.5 MG/0.5ML solution auto-injector Inject 2.5 mg under the skin 1 (one) time per week5Active Active Problems ProblemNoted DateDiagnosed DateVentricular caqlxz5903/07/2025Menopausal symptoms 05/12/2024Hot abverei6605/12/2024Pre-kksegvuz38/23/2024Restless leg syndrome 4Adult BMI 45.0-49.9 kg/sq m04Arthritis of left hand09/17/2022 Arthritis of right hand09/17/2022hronic tcuigpc7209/17/2022ependence on other enabling nqxkcrc8509/17/2022ESS (euthyroid sick syndrome)09/17/2022Fatty liver disease, ssfwuvlpfsuu42/23/9391Tcpjefasl21/23/2023HTN (hypertension)09/17/2022 Insomnia due to other mental /23/2023Mixed iankingomcam04/23/2023 Morbid xsowauk9009/17/2022Obstructive sleep apnea hypopnea, tubwzovr50/23/2023 Osteoarthritis of joint of toe of right foot09/17/2022Other chronic pain 09/17/2022Overactive fyqetbh3009/17/2022rimary osteoarthritis, right hand 09/17/2022Recurrent major depressive disorder, in partial ddsxdyayv59/23/2023 Sleep srszkuoj25/23/2023Status post bilateral knee nnpneuiylvxe03/23/2023 Awbdytpo36/23/2023Urinary qjojkebaoliy99/23/2023 Resolved Problems ProblemNoted DateDiagnosed DateResolved DateGlucose intolerance (impaired glucose tolerance)/10/2024Gynecological / Pain in female genitalia on huyjykypsfj61iriformis syndrome of left side Encounters DateTypeDepartmentCare CmwdNfuybbfexlb70/18/2025Orders Only [facility] [place] [address] [facility] [address] [place] [phone] Rachel July, Palpitations; Multifocal PVCs with pairing; Cklemtlnkri29/10/2025linisync Result Encounter [facility] External Department Unsolicited Janey Davis PA 02/22/2025Orders Only [facility] [address] [phone] Rachel July, MA 02/01/2025Telephone [facility] [place] [address] [facility] [address] [place] [phone] Fátima Burgos RN Euiwacd7301/27/2025Telephone [facility] Margie BHAKTA [address] [place] [address] [place] [phone] Nubia Martinez MA from Last 3 Months Immunizations ImmunizationAdministration DatesNext DueInfluenza Whole03/17/2013Influenza, High Dose Seasonal, Preservative Free02/01/2020Influenza, Injectable, MDCK, preservative free01/05/2024Influenza, injectable, MDCK, preservative free, veankisavfrn54/25/2023,01/15/2022,01/21/2019Influenza, injectable, MDCK, eqgcxblfxpzk25/27/2018Influenza, injectable, quadrivalent, preservative free 01/27/2021,02/02/2020,01/30/2019,01/21/2018,01/28/2017,03/17/2016,01/09/2015 Influenza, seasonal, injectable, preservative free03/02/2025,01/18/2017, 02/18/20153050TQBI-SVA-0 (COVID-19) vaccine, mRNA, spike protein, LNP, bivalent, preservative free, 30 mcg/0.3 mLdose, joyce-sucrose ypmvcuazdfn33/20/2022Zoster, Aomznacxdls51/16/2021,12/02/2020 Family History * Patient is adopted Medical HistoryRelationNameCommentsCancerMotherMila Debra KarunagsRelationNameStatus CommentsDaughterAliveFatherAliveMotherMila Debra KarunagsDeceased Social History Tobacco UseTypesPacks/DayYears UsedDateSmoking Tobacco: NeverSmokeless Tobacco: Never Tobacco Cessation:Counseling Given: Yes Alcohol UseStandard Drinks/WeekCommentsNever0 (1 standard drink = 0.6 oz pure alcohol)Caffeine intake: 2-3 cups per kjwE8496 Health LiteracyAnswerDate RecordedHow often do you need [...] relatives?Once a week12/15/2023How often do you attend scientologist or mormonism services?More than 4 times per year12/15/2023o you belong to any clubs or organizations such as scientologist groups, unions, [employer] or athletic You[employer]Unlock ups, or school groups?No12/15/2023How often do you attend meetings of the clubs or organizations you belong to?Never12/15/2023re you , , , , never , or living with a partner?Xdhexqd1512/15/2023 AUDIT-CAnswerDate RecordedQ1: How often do you have [...] at all 12/15/2023HQ-2AnswerDate RecordedPatient Health Questionnaire-2 Score0 08/02/2024[facility] [place] [facility] - Occupational Stress QuestionnaireAnswerDate [...] steady place to sleep or slept in universal health serviceser (including now)?No09/18/2022Housing Stability Vital SignAnswerDate RecordedIn the last 12 months, was there a time when you were not able to pay the mortgage or rent on time?No12/15/2023In the past 12 months, how many times have you moved where you were living?t any time in the past 12 months, were you homeless or living in a mcc (including now)?No 12/15/2023EducationAnswerDate RecordedWhat is the highest level of school you have completed or the highest degree you have received?Some college, no degree 11/13/2022CommentsNoSex and Gender InformationValueDate RecordedSex Assigned at BirthNot on fileLegal XasNprtpk74/15/2023 7:24 PM EDTGender Identity Not on fileSexual OrientationNot on fileOccupationIndustryJob Start DateJob End DateWorks, full timeNot on fileNot on fileNot on file Last Filed Vital Signs Vital SignReadingTime TakenCommentsBlood Dowpugyr066/8004 3:24 PM EDT Lymoc5620 1:28 PM FCWAvpoeustwcw26.2 ??C (97.2 ??F)06/15/2024 6:15 PM ESTRespiratory Rate--Oxygen Syqrmjyklr11%09/01/2024 1:28 PM EDTInhaled Oxygen Concentration--Zjwgqk480 kg (275 lb)09/01/2024 1:28 PM PZBAuqquo466 cm (5' 3 ) 09/01/2024 1:28 PM EDTBody Mass Index48.71009/01/2024 1:28 PM EDT Plan of Treatment DateTypeDepartmentCare Team (Latest Contact Info)Iajfdfxusbm45/03/2025 3:40 PM ESTOffice Visit [facility] [address] [place] [address] Susanne Heredia MD [address] [place] [address] 04/04/2025 3:00 PM ESTOffice Visit MARII BHAKTA [address] [place] [phone] Janey Davis PA [address] [facility] [address] [place], [place] [phone] Health MaintenanceDue DateLast DoneCommentsCT Xuprcptlpsqp20/30/1971Colonoscopy 1970FIT1970FOBT1970 9961Tazcrmitkmfol00/30/1971HPV/Rafydc6103/18/2024 03/18/2019COVID-19 Vaccine ( season)/12/2023, 01/20/2023, 07/27/2021, Additional history yxzoqnOymkgllhd50, 03/05/2024, 11/05/2021, Additional history existsColorectal Cancer Gucbzlypq43/24/2027 FIT-DNA/ervical Cancer Umsabplju78/02/2027Pap Smear /05/2023, 11/01/2022Influenza QucfkucZjoebkjdz30/05/2025, 01/05/2024, 01/20/2023, Additional history existsPneumococcal Vaccine: Pediatrics (0 to 5 Years) and At-Risk Patients (6 to 64 Years)Aged OutNo longer eligible based on patient's age to complete this topic Procedures Procedure NamePriorityDate/TimeAssociated DiagnosisCommentsCARDIAC EVENT MONITOR Bjctkei5403/15/2025 3:12 PM EST Palpitations Multifocal PVCs with pairing Tachycardia MM TOMOSYNTHESIS SCREENING BI03/07/2025 10:59 AM EST PAP WMURHMgsvodp37/02/2024 12:00 AM ESTLAB COLOGUARD?? COLON CANCER SCREEN Ztqsifu8109/19/2023 12:30 PM EDT Screening for colon cancer THINPREP TIS PAP REFLEX HPV MRNA E6/E7 (11793)Mkpajsk7603/18/2019 from Last 3 Months or Most Recently Relevant to Health Maintenance Results * Cardiac event monitor (03/15/2025 3:12 PM EST)Anatomical RegionLaterality ModalityHeartOther Narrative Authorizing ProviderResult TypeResult StatusEnrique Burgos [facility] [place] CARDIAC SERVICES PROCEDURESFinal Result * MM TOMOSYNTHESIS SCREENING BI (03/07/2025 10:59 AM EST)Anatomical Region LateralityModalityOtherSpecimen (Source)Anatomical Location / Laterality Collection Method / VolumeCollection TimeReceived Time03/07/2025 10:59 AM EST Narrative 03/07/2025 11:00 AM EST [facility] ?[address] ? [place] [address] ? Mammography Report ? Signed ? Patient: RIOS,NAIMA M ? MR#: [id number] ?? : 1970 ?Acct:[id number] ?? Age/Sex: 54 / F ?ADM Date: 11/10/25 ?? Loc: MAMMO ? Attending Dr: Janey Davis ? Ordering Physician: Janey Davis ?Results: ? Date of Service: 11/10/25 ?Follow Up: ? Procedure(s): MM tomosynthesis screening BI ?? Accession Number(s): [id number] ? cc: Janey Davis; MARIBETH GALVEZ ? Patient Name: ? NAIMA RIOS ? MR#: [id number] ? : 1970 ? Exam Date: 03/07/2025 ?? Ordering Doctor: OSVALDO DAVIS . ? RADIOLOGY REPORT ? PROCEDURE: ? MM TOMOSYNTHESIS SCREENING BI ? COMPARISON: ? MM TOMOSYNTHESIS SCREENING BI, 03/05/2024. ??MG MAMM SCREEN 3D ?? RONEN CAD, 11/05/2021. ??MAMMO RONEN SCREEN, 07/12/2020. ??MG MAMM SCREEN RONEN W CAD, ?? 05/14/2019. ? INDICATIONS: ? Screening ? Calculator Name ? NCI Breast Cancer Risk Assessment Tool ?? 5 Year Breast Cancer Risk ? 1.90% ?? Lifetime Breast Cancer Risk ? 13.30% ?? Personal Breast Cancer ?No ?? Personal Ovarian Cancer ? No ?? Treatments ? None ?? Family Cancers ? None ? LOCATION: ? [facility] ? BREAST COMPOSITION: ? There are scattered areas of fibroglandular density. ? FINDINGS: ? RIGHT BREAST: ??No significant suspicious finding. ??Benign-appearing lymph ?? nodes are noted along the right chest wall. ? LEFT BREAST: ??No significant suspicious finding. ??Benign-appearing ?? calcifications are present. ? DIAGNOSTIC CATEGORY 2--BENIGN FINDING. NO CHANGE FROM COMPARISON. ? RECOMMENDATIONS: ? ROUTINE MAMMOGRAM AND CLINICAL EVALUATION IN 12 MONTHS. ? Dictated by: Shayan Chen MD on 03/07/2025 at 10:55 ? Approved by: Shayan Chen MD on 03/07/2025 at 10:59 ? Dictated By: ?Shayan Chen M.D. ? Signed By: ?11/10/25 1100 ? DD/ 1059 ? TD/TT: ? Sampler Tester: Procedure Note Radiology, Radiologist, MD - 03/07/2025 [facility] [place] [id number] Mammography Report Signed Patient: NAIMA RIOS MMR#: [id number] : 1970Acct:[id number] Age/Sex: 54 / FADM Date: 03/07/25 Loc: MAMMO Attending Dr: Janey Davis Ordering Physician: Janey Wadeults: Date of Service: 03/07/25Follow Up: Procedure(s): MM tomosynthesis screening BI Accession Number(s): [id number] cc: Janey Davis; MARIBETH GALVEZ Patient Name: NAIMA RIOS MR#: [id number] : 1970 Exam Date: 03/07/2025 Ordering Doctor: OSVALDO DAVIS . RADIOLOGY REPORT PROCEDURE: MM TOMOSYNTHESIS SCREENING BI COMPARISON: MM TOMOSYNTHESIS SCREENING BI, 03/05/2024. MG MAMM QIYIDJ7U RONEN CAD, 11/05/2021. MAMMO RONEN SCREEN, 07/12/2020. MG MAMM SCREEN RONEN WCAD, 05/14/2019. INDICATIONS: Screening Calculator Name NCI Breast Cancer Risk Assessment Tool 5 Year Breast Cancer Risk 1.90% Lifetime Breast Cancer Risk 13.30% Personal Breast Cancer No Personal Ovarian Cancer No Treatments None Family Cancers None LOCATION: [facility] BREAST COMPOSITION: There are scattered areas of fibroglandulardensity. FINDINGS: RIGHT BREAST: No significant suspicious finding. Benign-appearing lymph nodes are noted along the right chest wall. LEFT BREAST: No significant suspicious finding. Benign-appearing calcifications are present. DIAGNOSTIC CATEGORY 2--BENIGN FINDING. NO CHANGE FROM COMPARISON. RECOMMENDATIONS: ROUTINE MAMMOGRAM AND CLINICAL EVALUATION IN 12 MONTHS. Dictated by: Shayan Chen MD on 03/07/2025 at 10:55 Approved by: Shayan Chen MD on 03/07/2025 at 10:59 Dictated By: Shayan Chen M.D. Signed By:03/07/25 1100 DD/ 1059 TD/TT: Sampler Tester: Authorizing ProviderResult TypeResult StatusAmy [place] PACLINISYNC IMAGINGFinal Result * Pap Smear (03/29/2024 12:00 AM EST)Specimen (Source)Anatomical Location / LateralityCollection Method / VolumeCollection TimeReceived TimeSwabCervical swab / Unknown Narrative Authorizing ProviderResult TypeResult StatusFazio Nurse [facility] Ob[facility] CYTOLOGY ORDERABLESFinal ResultPerforming OrganizationAddressCity/State/ZIP CodePhone Number EXTERNAL LAB * Cologuard?? colon cancer screening (09/19/2023 12:30 PM EDT)ComponentValueRef RangeTest MethodAnalysis TimePerformed AtPathologist SignatureNONINV COLON CA DNA+OCC BLD SCRN STL-CPQEboahrapNspfmxep23/30/2024 9:11 AM EDTEXACT Joroto (CLIA #:[id number])Comment: NEGATIVE TEST RESULT. A negative Cologuard result [...] Vincent. et al, N Engl J Med 2014;370(14):3433-1371) The normal value (reference range) for this assay is negative. COLOGUARD RE-SCREENING RECOMMENDATION: Periodic colorectal cancer screening is an important part ofpreventive healthcare for asymptomatic individuals at average risk for colorectal cancer. ??Following a negative Cologuard result, the Stateless Cancer Society and U.S. Multi-Society Task Force screening guidelines recommend a Cologuard re-screening interval of 3 years. References: Stateless Cancer Society Guideline for Colorectal Cancer Screening: https://www.cancer.or g/cancer/qabtn-ywgbzy-ixsmda/lysxahnoo-bhmvtptcq-wnwbcjq/acs-recommendations.htm kristal MENDOSA, [place] MARK, Hernesto ABRAMS, Colorectal Cancer Screening: Recommendations for Physicians and Patients from the U.S. Multi-Society Task Force on Colorectal Cancer Screening , Am J Gastroenterology 2017; 112:9492-9338. TEST DESCRIPTION: Composite algorithmic analysis of stool [...] (Jonel Boyd al, N Engl J Med 2014;370(14):4435-4064.) Cologuard may produce a false negative or false positive result (no colorectal cancer or precancerous polyp present at colonoscopy follow up). A negative Cologuard test result does not guarantee the absence of CRC or advanced adenoma (pre-cancer). The current Cologuard screening interval is every 3 years. (Stateless Cancer Society and U.S. Multi-Society Task Force). Cologuard performance data in a 10,000 patient pivotal study using colonoscopy as the reference method can be accessed at the following location: www.exactlabs.com/results. Additional description of the Cologuard test process, warnings and precautions can be found at www.cologuard.com. Specimen (Source)Anatomical Location / LateralityCollection Method / Volume Collection TimeReceived TimeStool specimen (specimen)09/19/2023 12:30 PM EDT 09/20/2023 7:56 AM EDT Narrative Authorizing ProviderResult TypeResult StatusEnrique ENAMORADO [facility] ORDERABLESFinal ResultPerforming OrganizationAddressCity/State/ZIP CodePhone Number [facility] (CLIA #:[id number]) [address] [place] [address], * THINPREP TIS PAP REFLEX HPV MRNA E6/E7 (64007) (03/18/2019)ComponentValueRef RangeTest MethodAnalysis TimePerformed AtPathologist SignatureCLINICAL INFORMATION:None [...] LEGACY EXTERNAL LABCYTOTECHNOLOGIST:SEE COMMENTNOMS LEGACY EXTERNAL LABComment: [facility], CT(ASCP) CT screening location: [employer] [place] [address]. COMMENTSEE COMMENTNOMS LEGACY EXTERNAL LABComment: EXPLANATORY NOTE: [...] Collection TimeReceived Time03/18/2019 Narrative Authorizing ProviderResult TypeResult StatusPat BALLARD LABSFinal ResultPerforming OrganizationAddressCity/State/ZIP CodePhone Number [facility] from Last 3 Months or Most Recently Relevant to Health Maintenance Insurance Care Teams Team MemberRelationshipSpecialtyStart DateEnd Date Norris Reddy DO [address] [place] [phone] PCP - GeneralInternal Odcwzqfw61/19/25 Maribeth Galvez NP [address] [place] [address] Referring PhysicianFamily Jhgxpiww75/19/25
--- OUTSIDE RECORDS SUMMARY | 2025-03-22 07:13 | XMS_ITS | Clinical Summary ---
Author Organization [id number] [address] [place] [address] Care Team Providers Care Student Driving Instructor Name Role Phone Enrique Burgos MD Primary Care Provider + [phone] Social History Tobacco UseTypesPacks/DayYears UsedDateSmoking Tobacco: Never AssessedChildcare AnswerDate DhntzxbqWzhhwfuaaDppvtfz96/25/2021EmploymentAnswerDate Recorded DbvxvxjnccOfhcrhm95/25/2021Purpose - LifeAnswerDate RecordedPurpose and direction in klbbTnokxnv04/25/2021CommentsNoSex and Gender Information ValueDate RecordedSex Assigned at BirthNot on fileLegal RllWchhig18/04/2015 6:35 PM EDTGender IdentityNot on fileSexual OrientationNot on file Last Filed Vital Signs Vital SignReadingTime TakenCommentsBlood Pressure--Pulse--Temperature-- Respiratory Rate--Oxygen Saturation--Inhaled Oxygen Concentration--Pdljat891.2 kg (265 lb)07/12/2020 7:54 AM ADJPstbny269 cm (5' 3 )07/12/2020 7:54 AM EDTBody Mass Index46.9407/12/2020 7:54 AM EDT Plan of Treatment Health MaintenanceDue DateLast DoneCommentsDepression Afjpqhger45/30/1983Tobacco Uscipzaen61/30/1983Adult BMI Riedtpoof99/30/1989DTaP,Tdap and Td Vaccines (1 - Tdap)1989Pap Smear09/25/1991Zoster (Shingles) Vaccine (1 of 2)2020 Influenza Rzqhnxk2012/27/2024 Medical Devices Not on file Insurance Care Teams Team MemberRelationshipSpecialtyStart DateEnd Enrique Burgos MD PCP - GeneralFamily Medicine07/12/20
--- OUTSIDE RECORDS SUMMARY | 2025-03-22 07:13 | XMS_ITS | CCD ---
Author Organization [facility] Care Team Providers Care Director Of Oncology Name Role Phone ANJALI, DR BLAKELY Admitting [...] MONTRELL [employer] Unavailable Ernie Fuller Unavailable [phone] Enrique Alba Primary [facility] Unavailable Ernie Fuller Attending UnavailErnie Moreno Admitting Unavailabl Ben Gooden Unavailable Pollo Florest E Primary Care Provider UnavailTaylor Puckett RD Unavailable [phone] RADHA ABDUL Referring UnavailTAYLOR Puckett Attending Unavailable ELYSE FLORESGHT E Primary Care Unavailable RADHA ABDUL Attending Unavailabl MIKE Rogers Referring Unavailable ELYSE FLORESGHT E Primary Care Unavailable MARIAJOSE STALLWORTH Attending Unavailable ELYSE FLORESGHT E Primary Care Unavailable Enrique Alba MD Primary Care Provider Enrique Alba MD Primary Care Provider [phone] LUIS EDUARDO LEVINE Attending Unavailable LUIS EDUARDO LEVINE Referring Unavailable ENRIQUE ALBA Attending Unavailable ENRIQUE ALBA Attending Unavailable ENRIQUE ALBA Attending Unavailable ENRIQUE ALBA Attending Unavailable ENRIQUE ALBA Attending Unavailable JANEY SAVAGE Attending Unavailable ENRIQUE ALBA Attending Unavailable BEATRIZ CHAVIS Attending Unavailable BEATRIZ CHAVIS Referring Unavailable Maribeth Galvez APRN Primary Care Provider Maribeth Galvez APRN Attending Provider Maribeth Galvez APRN Primary Care Provider Maribeth Galvez APRN Attending Provider SOURAV SALDANA Attending Unavailable SOURAV SALDANA Attending Unavailable Allergies Allergy ClassificationReported Allergen(s)Allergy TypeDate of OnsetReaction(s) Facility (20 sources)DULoxetine; 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: [DULOXETINE HCL]Drug Hmajzeb10-62-7434FBZN [facility] (20 sources)metFORMIN; 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: [METFORMIN]Drug Dvnfflo85-27-9304CK[facility] Phone: Medications Current Medications MedicationDrug Class(es)DatesSig (Normalized)Sig (Original)[id number] 200 actuat albuterol 0.09 mg/actuat metered dose inhaler (20 sources)beta2-Adrenergic AgonistStart: 91-83-4409udbp 2 puff(s) by inhalation every six hours for wheezingalbuterol HFA (ProAir HFA) 90 mcg/act inhaler Indications: Bronchitis Inhale 2 puffs every 6 (six) hours if needed for wheezing 18 g 3 05/14/2023 ActiveStart: 93-07-8369ajvo 2 puff(s) by inhalation every six hours as neededalbuterol HFA (PROVENTIL HFA, VENTOLIN HFA) 90 mcg/actuation inhaler Inhale 2 Puffs as instructed every 6 hours as needed. 0 09/26/2017 ActiveComment on above:Inhale 2 Puffs as instructed every 6 hours as needed.Blood-Glucose Sensor (Dexcom G6 Sensor) device (1 source)Start: 57-27-1080Xroqv-Glucose Sensor (Dexcom G6 Sensor) device Active 0 .Route 3 March 02, 2025 12:00am To check blood sugar dailyBlood- Glucose,Child Care Aide,Cont (Dexcom G7 Child Care Aide) misc (1 source)Start: 52-25-8536Sbshx-Glucose,Child Care Aide,Cont (Dexcom G7 Child Care Aide) misc Active 0 .Route 1 March 02, 2025 12:00am Check blood sugar dailybusPIRone hydrochloride 5 mg oral tablet (1 source)Start: 08-10-8044oyky 1 tablet by mouth twice dailyBuspirone 5 mg tablet Active 5 MG PO Twice daily 60 30 March 02, 2025 12:00am Anxiety Anxietydisorder, unspecified Complies with drug therapycitalopram 10 mg oral tablet (3 sources)Serotonin Reuptake InhibitorStart: 16-27-3827qqmu 1 tablet by mouth once dailycitalopram (CeleXA) 10 MG tablet Indications: Hot flashes , Menopausal symptoms Take 1 tablet (10 mg) by mouth Daily 30 tablet 3 05/12/2024 Active diclofenac sodium 0.03 mg/mg topical gel (20 sources)Nonsteroidal Anti-inflammatory DrugStart: 92-98-0321buwsnrsjvf sodium 3 % gel Apply 1 application topically every 6 (six) hours. 07/23/2021 Activefenofibrate 160 mg oral tablet (20 sources)Peroxisome Proliferator Receptor alpha AgonistStart: 03-15-2024 End: 64-76-1222ftia 1 tablet by mouth once dailyfenofibrate (Triglide) 160 MG tablet Indications: Mixed dyslipidemia Take 1 tablet (160 mg) by mouth Daily 90 tablet 1 08/02/2024 ActiveStart: 03-11-2024 End: 20-71-4163cxal 1 capsule by mouth once dailyFenofibrate 150 MG capsule Indications: Mixed dyslipidemia (CMS/HCC) Take 150 mg by mouth Daily 30 capsule 03/11/2024 03/15/2024 Discontinued (Formulary change)Start: 01-29-2023 End: 22-86-5835qxcm 1 tablet by mouth in the morningfenofibrate (Tricor) 145 MG tablet Indications: Mixed hyperlipidemia (CMS/HCC) Take 1 tablet (145 mg) by mouth in the morning. 90 tablet 1 01/29/2023 02/25/2024 Discontinued (Therapy completed)Fezolinetant (Veozah) 45 MG tablet (5 sources)Start: 07-21-2024 End: 78-17-6107yptr 1 tablet by mouth once dailyFezolinetant (Veozah) 45 MG tablet Indications: Hot flashes , Menopausal symptoms Take 45 mg by mouth Daily 30 tablet 1 07/21/2024 09/01/2024 ActiveStart: 07-21-2024 End: 59-96-1896rriy 1 tablet by mouth once dailyFezolinetant (Veozah) 45 MG tablet Indications: Hot flashes , Menopausal symptoms Take 45 mg by mouth Daily 30 tablet 1 07/21/2024 08/20/2024 Activegabapentin 100 mg oral capsule (20 sources)Anti-epileptic AgentStart: 11-09-2024 End: 42-42-3053ffwb 1 capsule by mouth three times daily as needed for pain gabapentin (Neurontin) 100 MG capsule Indications: Bilateral hip pain Take 1 capsule (100 mg) by mouth 3 (three) times a day as needed (hip pain) 90 capsule 5 11/09/2024 05/08/2025 ActiveStart: 08-02-2024 End: 31-89-0097kekv 1 capsule by mouth at bedtimegabapentin (Neurontin) 300 MG capsule Indications: Restless leg syndrome Take 1 capsule (300 mg) bymouth at bedtime 90 capsule 1 08/02/2024 ActiveStart: 08-19-2023 End: 52-59-7138dvhc 1 capsule by mouth at bedtimegabapentin (Neurontin) 300 MG capsule Indications: Acute left-sided back pain with sciatica Take 1 capsule (300 mg) by mouth at bedtime 90 capsule 1 08/19/2023 02/25/2024 Discontinued Start: 07-23-2023 End: 79-26-9296nenrjthwps (Neurontin) 100 MG capsule Indications: Acute left- sided back pain with sciatica 2 capsules three times daily as needed for pain 180 capsule 1 07/23/2023 02/25/2024 DiscontinuedlevoFLOXacin 750 mg oral tablet (2 sources)Quinolone AntimicrobialStart: 04-05-2024 End: 64-10-7779qeqb 1 tablet by mouth once dailylevoFLOXacin (Levaquin) 750 MG tablet Indications: Acute non-recurrent pansinusitis Take 1 tablet (750 mg) by mouth Daily for 7 days 7 tablet 04/05/2024 04/12/2024 Activelisinopril 20 mg oral tablet (2 sources)Angiotensin Converting Enzyme InhibitorStart: 02-16-2025 End: 76-62-7551whbc 1 tablet by mouth once dailyLisinopril 20 mg tablet Active 20 MG PO Daily February 20, 2025 11:00pm Complies with drug therapymagnesium oxide 400 mg oral tablet (6 sources)Start: 04-16-2024 End: 14-56-2054vrmm 1 tablet by mouth once dailymagnesium oxide (Mag-Ox) 400 MG tablet Indications: Hot flashes Take 1 tablet (400 mg) by mouth Daily 30 tablet 2 04/16/2024 07/15/2024 Activemelatonin 10 mg oral tablet (20 sources)take 1 tablet by mouth at bedtimemelatonin 10 MG tablet Take 1 tablet by mouth at bedtime. Qstcws64 hr metFORMIN hydrochloride 750 mg extended release oral tablet (20 sources)BiguanideStart: 95-39-3393kllj 1 tablet by mouth every twenty-four hours in the morningmetFORMIN XR (Glucophage-XR) 750 MG 24 hr tablet Indications: Pre-diabetes Take 1 tablet (750 mg) by mouth in the morning and 1 tablet (750 mg) before bedtime. Do not crush, chew, or split.. 60 tablet 05/13/2024 ActiveStart: 03-11-2024 End: 22-98-2568qrtq 1 tablet by mouth every twenty-four hours in the morning metFORMIN XR (Glucophage-XR) 500 MG 24 hr tablet Indications: Pre-diabetes Take 1 tablet (500 mg) by mouth in the morning and 1 tablet (500 mg) in the evening. Take with meals. Do not crush, chew, orsplit.. 60 tablet 03/31/2024 04/30/2024 ActiveStart: 07-14-2023 End: 94-04-6420gejm 1 tablet by mouth in the morningmetFORMIN (Glucophage) 500 MG tablet Indications: Glucose intolerance (impaired glucose tolerance) Take 1 tablet (500 mg) by mouth in the morning and 1 tablet (500 mg) in the evening. Take before meals. 60 tablet 07/14/2023 12/16/2023 Discontinued (Therapy completed)Start: 07-14-2023 End: 96-92-8260xogo 1 tablet by mouth in the morningmetFORMIN (Glucophage) 850 MG tablet Indications: Glucose intolerance (impaired glucose tolerance) Take 1 tablet (850 mg) by mouth in the morning and 1 tablet (850 mg) in the evening. Take before meals. 60 tablet 07/14/2023 12/16/2023 Discontinued (Therapy completed)Start: 01-29-2023 End: 34-01-5391kgdr 1 tablet by mouth in the morningmetFORMIN (Glucophage) 1000 MG tablet Indications: Glucose intolerance (impaired glucose tolerance)Take 1 tablet (1,000 mg) by mouth in the morning and 1 tablet (1,000 mg) in the evening. Take with meals. 180 tablet 1 01/29/2023 12/16/2023 Discontinued (Therapy completed)methylPREDNISolone (5 sources)CorticosteroidStart: 06-15-2024 End: 38-03-3032ncvgboTHNEURTdbpph (Medrol Dospak) 4 MG tablets Indications: Left foot pain Follow schedule on package instructions 21 tablet 06/15/2024 06/22/2024 ActiveStart: 04-17-2024 End: 60-54-8982zqgadfPBVMRHFpiqyu (Medrol Dospak) 4 MG tablets Indications: Acute pain of left knee Take as directed on package. 21 tablet 04/17/2024 04/24/2024 Activenebivolol 5 mg oral tablet (2 sources)Start: 11-09-2024 End: 07-01-0237ahiw 1 tablet by mouth once dailynebivolol (Bystolic) 5 MG tablet Indications: Palpitations Take 1 tablet (5 mg) by mouth Daily 30 tablet 11/09/2024 ActiveOzempic, 0.25 or 0.5 MG/DOSE, 2 MG/3ML solution pen-injector (1 source)Start: 22-90-0213tximkw 0.5 mg by subcutaneous injection every week Ozempic, 0.25 or 0.5 MG/DOSE, 2 MG/3ML solution pen-injector INJECT 0.5 MG UNDER THE SKIN WEEKLY 01/09/2025 ActiverOPINIRole 1 mg oral tablet (20 sources)Nonergot Dopamine AgonistStart: 77-31-2520dqsn 1 tablet by mouth once daily at bedtimeRopinirole 1 mg tablet Active 1 MG PO Daily at bedtime February 01, 2025 11:00pm administer 1-3 hours before bedtime Complies with drug therapyStart: 39-60-7341jMDASQZqnr (Requip) 1 MG tablet Indications: Restless Leg Syndrome One tablet at bedtime 30 tablet 11/09/2024 ActiveStart: 09-15-2023 End: 28-91-7485wFKFNUFvoi (Requip) 0.5 MG tablet Indications: Restless Leg Syndrome One tablet at bedtime 90 tablet 1 08/02/2024 Activesertraline 25 mg oral tablet (5 sources)Serotonin Reuptake InhibitorStart: 02-02-2025 End: 83-34-1994unrn 1 tablet by mouth in the morningsertraline (Zoloft) 25 MG tablet Take 25 mg by mouth in the morning. 02/02/2025 ActiveStart: 03-30-2018 End: 62-78-1492ylni 1 tablet by mouth once daily at bedtimeSertraline 100 mg tablet Discontinued 100 MG PO Daily at bedtime March 30, 2018 12:00am 2024 7:59amTirzepatide (1 source)Start: 30-27-7177Dojlqujflqp (Mounjaro) 2.5 mg/0.5 mL pen injector Active 2.5 MG SUBCUT every week 2.5 30 2024 12:00am Type 2 diabetes mellitus Type 2 diabetes mellitus without complications for 4 weeks Complies with drug hr venlafaxine 37.5 mg extended release oral capsule (9 sources)Serotonin and Norepinephrine Reuptake InhibitorStart: 11-03-2023 End: 89-43-9513mxnr 1 capsule by mouth once dailyvenlafaxine XR (Effexor XR) 37.5 MG 24 hr capsule Indications: Recurrent major depressive disorder,in partial remission (HCC) (CMS/HCC) Take 1 capsule (37.5 mg) by mouth Daily Do not crush or chew. 30 capsule 12/16/2023 12/25/2023 Discontinued (Side effects) Start: 11-03-2023 End: 08-52-7520xxev 1 tablet by mouth every twenty-four hours [...] tablet (2 sources)HMG-CoA Reductase InhibitorStart: 03-30-2018 End: 71-98-9172ijhx 1 tablet by mouth once daily at bedtimeAtorvastatin 20 mg tablet Discontinued 20 MG PO Daily at bedtime March 30, 2018 12:00am February 02, 2025 7:58am hyperlipidemiadocusate sodium 100 mg oral capsule (2 sources)Start: 04-06-2018 End: 18-90-8027blww 1 capsule by mouth twice daily as needed for constipation Docusate Sodium (Colace) 100 mg capsule Discontinued 100 MG PO Twice daily as needed for constipation 60 April 06, 2018 9:46am February 02, 2025 7:58am escitalopram 5 mg oral tablet (4 sources)Serotonin Reuptake InhibitorStart: 12-25-2023 End: 07-14-9874cmju 1 tablet by mouth once dailyescitalopram (Lexapro) 5 MG tablet Indications: Recurrent major depressive disorder, in partial remission (HCC) (CMS/HCC) Take 1 tablet (5 mg) by mouth Daily 30 tablet 12/25/2023 02/25/2024 Discontinued (Therapy completed)fluconazole 150 mg oral tablet (4 sources)Azole AntifungalStart: 03-29-2024 End: 82-16-3887ecrg 1 tablet by mouth oncefluconazole (Diflucan) 150 MG tablet Indications: Yeast infection of the skin Take 1 tablet (150 mg) by mouth 1 (one) time for 1 dose 1 tablet 03/29/2024 04/05/2024 Discontinued (Therapy completed) ibuprofen 600 mg oral tablet (2 sources)Nonsteroidal Anti-inflammatory DrugStart: 04-06-2018 End: 64-20-0307xrdk 1 tablet by mouth every six hours as needed for pain Ibuprofen 600 mg tablet Discontinued 600 MG PO Q6H as needed for pain 30 April 06, 2018 12:00am February 02, 2025 7:59amliothyronine sodium 0.005 mg oral tablet (1 source)l-Triiodothyronine End: 30-19-0957cuas 1 tablet by mouth once dailyliothyronine (CYTOMEL) 5 mcg tablet Take 5 mcg by mouth once daily. 0 08/01/2022 DiscontinuedComment on above:Take 5 mcg by mouth once daily.losartan potassium 100 mg oral tablet (2 sources)Angiotensin 2 Receptor BlockerStart: 03-30-2018 End: 86-46-0358ulmf 1 tablet by mouth once daily at bedtimeLosartan 100 mg tablet Discontinued 100 MG PO Daily at bedtime March 30, 2018 12:00am February 02, 2025 7:59am htnmeloxicam 15 mg oral tablet (9 sources)Nonsteroidal Anti-inflammatory DrugStart: 08-01-2022 End: 77-86-2690ccxx 1 tablet by mouth once dailymeloxicam (MOBIC) 15 mg tablet Indications: Erosive osteoarthritis of both hands Take 1 tablet by mouth once daily. 30 tablet 2 08/01/2022 10/30/2022 ExpiredStart: 10-14-2019 End: 15-45-6260azux 1 tablet by mouth once dailymeloxicam (MOBIC) 7.5 mg tablet Take 1 tablet by mouth once daily. Stop all other anti-inflammatories 30 tablet 0 10/14/2019 08/01/2022 Discontinued (Changing Therapy/Dosage Form)Comment on above:Take 1 tablet by mouth once daily.Take 1 tablet by mouth once daily. Stop all other anti-inflammatoriesmetaxalone 800 mg oral tablet (1 source) End: 81-01-1838fjwrlhttwn (METAXALL) 800 mg tablet Take 800 mg by mouth as needed. 0 08/01/2022 DiscontinuedComment on above:Take 800 mg by mouth as needed.0.25 mg, 0.5 mg dose 1.5 ml semaglutide 1.34 mg/ml pen injector (3 sources)Start: 02-02-2025 End: 18-48-1848Yjybgzsrtdw (Ozempic) 0.25 mg or 0.5 mg(2 mg/1.5 mL) pen injector Discontinued 0.25 MG SUBCUT everyweek 1.5 0 February 03, 2025 7:14pm March 02, 2025 8:52am Type 2 diabetes mellitus Type 2 diabetes mellitus without complications for 4 weeksVeozah 45 MG tablet (2 sources)Start: 08-18-2024 End: 43-31-2198nojk 1 tablet by mouth once dailyVeozah 45 MG tablet Take 1 tablet by mouth Daily 08/18/2024 09/01/2024 Discontinued (Therapy completed) Problems Active Problems Problem ClassificationProblemDateDocumented DateEpisodic/Chronic Administrative/social admission (2 sources)Advance directive discussed with patient; 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: [Other specified counseling]24-49-4068GojehyhnMnpiilb disorders (6 sources)Mixed anxiety and depressive disorder; 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: [Other specified anxiety disorders]06-91-1163QnnouhvYdqtgyt dysrhythmias (2 sources)Ventricular premature depolarization; 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: [Ventricular premature depolarization]Onset: 55-08-8357WxbarvpWuzdjmd dysrhythmias (11 sources)Palpitations; 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: [Tachycardia]Onset: EpisodicDiabetes mellitus without complication (5 sources)Type 2 diabetes mellitus; 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: [Type 2 diabetes mellitus without complications]Onset: 244515-60-6646BbkomwdOnfyogerw of lipid metabolism (20 sources)Mixed hyperlipidemia; 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: [Mixed hyperlipidemia]Onset: 21-42-7455ZtqlkxbYaehtcpdb hypertension (20 sources)Essential (primary) hypertension; 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: [Hypertensive disorder]Onset: 71-35-1314JokfjncDsbappvcwhomn symptoms and ill-defined conditions (20 sources)Urge incontinence of urine; Translations: [Urge incontinence]Onset: 055719-56-5003RhsdgngJvwdbqonxukkr and screening for infectious disease (1 source)Encounter for screening for human papillomavirus (HPV); Translations: [ENC SCREENING HUMAN PAPILLOMAVIRUS]Onset: 07-71-2291TjxaqqbnJcwukse and fatigue (20 sources)Fatigue; Translations: [Chronic fatigue, unspecified]Onset: 455483-25-6503JdozzgsJfenedccmq disorders (18 sources)Menopausal syndrome; Translations: [Menopausal and female climacteric states]Onset: 497203-92-6621WlyeiouFoklvlwsqezri mental health disorders (20 sources)Insomnia disorder related to another mental disorder; Translations: [Insomnia due to other mental disorder]Onset: 694620-56-3615UmxchnhRgxd disorders (20 sources)Recurrent major depression in partial remission; Translations: [Major depressive disorder, recurrent, in partial remission]Onset: 09-17-2022 36-92-3008DkpqjwiQaozuxj (2 sources)Candidiasis of skin; Translations: [Candidiasis of skin and nail] 18-26-7542ZbrqvdyjOpdcrxjrqazsgc (20 sources)Osteoarthritis of joint of bilateral hands; Translations: [Erosive (osteo)arthritis]Onset: 34-26-0187ZhzqvmqNqlql aftercare (3 sources)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; Translations: [assisted (current) use of non-steroidal anti-inflammatories (NSAID)]EpisodicOther connective tissue disease (3 sources)History of total knee arthroplasty; Translations: [Presence of unspecified artificial knee joint]Onset: 946775-10-2703UsqdbygXacep connective tissue disease (2 sources)Pain in left foot; Translations: [Pain in left foot]06-15-2024 EpisodicOther diseases of bladder and urethra (20 sources)Overactive bladder; Translations: [Overactive bladder]Onset: 112395-91-3302VupfnzuUrxzb female genital disorders (1 source)Other specified noninflammatory disorders of vagina; Translations: [OTH SPEC NONINFLAMMATORY D/O VAGINA]Onset: 55-81-6484XuqebpneRjlpb hereditary and degenerative nervous system conditions (20 sources)Restless legs; Translations: [Restless legs syndrome]Onset: 695680-13-4026VwgrsykFwcjr liver diseases (1 source)Inflammatory liver disease, unspecified; Translations: [INFLAMMATORY LIVER DISEASE UNS]Onset: 69-31-8832DsuxskcBqewm liver diseases (20 sources)Fatty (change of) liver, not elsewhere classified; Translations: [Other chronic nonalcoholic liver disease]Onset: 01-87-5485MsvhsvoYggkb liver diseases (7 sources)Steatosis of liver; Translations: [Fatty (change of) liver, not elsewhere classified]ChronicOther liver diseases (20 sources)Inflammatory disease of liver; Translations: [Inflammatory liver disease, unspecified]Onset: 673187-98-2984FpuupogSiwsr liver diseases (3 sources)Elevated liver enzymes level; Translations: [Abnormal levels of other serum enzymes]EpisodicOther liver diseases (3 sources)Abnormal levels of other serum enzymes; Translations: [Abnormal levels of other serum enzymes]Onset: 82-67-6164AmauyxwcOigfz lower respiratory disease (2 sources)Shortness of breath; Translations: [Shortness of breath]Onset: 84-90-7202VyohdjrwPwzsz nervous system disorders (20 sources)Chronic pain; Translations: [Other chronic pain]Onset: 09-17-2022 41-96-0223KqorsreGrduv non-traumatic joint disorders (2 sources)Pain in left knee; Translations: [Pain in joint, lower leg]04-17-2024 EpisodicOther non-traumatic joint disorders (1 source)Hip pain; Translations: [Pain in right hip]26-33-5297ZpfeoxunWiuke nutritional; endocrine; and metabolic disorders (2 sources)Obesity; Translations: [Obesity, unspecified]ChronicOther nutritional; endocrine; and metabolic disorders (1 source)Severe obesity; Translations: [Morbid (severe) obesity due to excess calories]ChronicOther nutritional; endocrine; and metabolic disorders (20 sources)Morbid obesity; Translations: [Morbid (severe) obesity due to excess calories]Onset: 083188-81-0525WnnahwhVscwi nutritional; endocrine; and metabolic disorders (20 sources)Body mass index 40+ - severely obese; Translations: [Body mass index (BMI) 45.0-49.9, adult]Onset: 919822-15-4659TlozyigIddtb screening for suspected conditions (not mental disorders or infectious disease) (13 sources)Encounter for screening mammogram for malignant neoplasm of breast; Translations: [Encounter for screening for malignant neoplasm of cervix]Onset: 91-76-7317IcruezcfEoplu upper respiratory infections (2 sources)Acute pansinusitis; Translations: [Acute pansinusitis, unspecified] 48-25-8744KazlmsxnMhvycsza codes; unclassified (20 sources)Dependence on enabling machine or device; Translations: [Dependence on other enabling machines and devices]Onset: hronic Residual codes; unclassified (20 sources)Obstructive sleep apnea syndrome; Translations: [Obstructive sleep apnea (adult) (pediatric)]Onset: 977245-88-1329TihrlbhGshufiru codes; unclassified (1 source)Acquired absence of other specified parts of digestive tract; Translations: [ACQ ABSENCE OTH PART DIGESTV TRACT]Onset: 39-97-8380Mnhvfabn Spondylosis; intervertebral disc disorders; other back problems (2 sources)Low back pain; Translations: [Low back pain]68-98-8497KjkddmcnOtiospi and strains (2 sources)Strain of foot; Translations: [Strain of unspecified muscle and tendon at ankle and foot level, left foot, initial encounter]41-12-9996Irzuaany Unclassified (1 source)New PatientOnset: 10-30-2022 Past or Other Problems Problem ClassificationProblemDateDocumented DateEpisodic/ChronicDiabetes mellitus without complication (20 sources)Impaired glucose tolerance (oral); Translations: [Impaired glucose tolerance]Onset: 10-12-2021 Resolved: 909559-26-9638SsozioqfEdpwh female genital disorders (20 sources)Pain in female genitalia on intercourse; Translations: [Unspecified dyspareunia]Onset: 09-17-2022 Resolved: 754060-71-8432WvcsxweWmfqj female genital disorders (20 sources)Disorder of female genital system; Translations: [Unspecified condition associated with female genital organs and menstrual cycle]Onset: 09-17-2022 Resolved: 814675-24-7903DbhslxvnVbiwc nervous system disorders (20 sources)Left-sided piriformis syndrome; Translations: [Lesion of sciatic nerve, left lower limb]Onset: 09-17-2022 Resolved: 524463-81-1742IymjgzxAhbok non-traumatic joint disorders (3 sources)Pain in right knee; Translations: [Pain in joint, lower leg]Onset: 788802-65-8945RjdyzyteOdcjxfnr codes; unclassified (20 sources)Sleep disorder; Translations: [Sleep disorder, unspecified]Onset: 555417-47-8052WotjsmvbWmhugmlj codes; unclassified (16 sources)Flushing; Translations: [Flushing]Onset: 900508-61-8261 EpisodicThyroid disorders (20 sources)Sick-euthyroid syndrome; Translations: [Sick-euthyroid syndrome] Onset: 972584-31-4649Qudtexth Results Test NameValueInterpretationReference RangeFacilityMM TOMOSYNTHESIS SCREENING BI [place] 16[place] [address] Mammography Report Signed Patient: NAIMA HERNANDEZ MR#: [id number] : 1970 Acct:[id number] Age/Sex: 54 / F ADM Date: 03/07/25 Loc: MAMMO Attending Dr: Janey Savage Ordering Physician: Jaeny Savage Results: Date of Service: 03/07/25 Follow Up: Procedure(s): MM tomosynthesis screening BI Accession Number(s): [id number] cc: Janey Savage; MARIBETH GALVEZ Patient Name: NAIMA HERNANDEZ MR#: [id number] : 1970 Exam Date: 03/07/2025 Ordering Doctor: OSVALDO SAVAGE . RADIOLOGY REPORT PROCEDURE: MM TOMOSYNTHESIS SCREENING BI COMPARISON: MM TOMOSYNTHESIS SCREENING BI, 03/05/2024. MG MAMM SCREEN 3D ENMANUEL CAD, 11/05/2021. MAMMO ENMANUEL SCREEN, 07/12/2020. MG MAMM SCREEN ENMANUEL W CAD, 05/14/2019. INDICATIONS: Screening Calculator Name NCI Breast Cancer Risk Assessment Tool 5 Year Breast Cancer Risk 1.90% Lifetime Breast Cancer Risk 13.30% Personal Breast Cancer No Personal Ovarian Cancer No Treatments None Family Cancers None LOCATION: [facility] BREAST COMPOSITION: There are scattered areas of fibroglandular density. FINDINGS: RIGHT BREAST: No significant suspicious finding. [...] 10:59 Dictated By: Shayan Chen M.D. Signed By: 03/07/25 1100 DD/ 1059 TD/TT: Manager Trading:TBHRadiology, Radiologist, - 03/07/2025 [place] [address] Mammography Report Signed Patient: NAIMA HERNANDEZ MR#: [id number] : 1970 Acct:[id number] Age/Sex: 54 / F ADM Date: 03/07/25 Loc: MAMMO Attending Dr: Janey Savage Ordering Physician: Janey Savage Results: Date of Service: 03/07/25 Follow Up: Procedure(s): MM tomosynthesis screening BI Accession Number(s): [id number] cc: Janey Savage; MARIBETH GALVEZ Patient Name: NAIMA HERNANDEZ MR#: [id number] : 1970 Exam Date: 03/07/2025 Ordering Doctor: OSVALDO SAVAGE . RADIOLOGY REPORT PROCEDURE: MM TOMOSYNTHESIS SCREENING BI COMPARISON: MM TOMOSYNTHESIS SCREENING BI, 03/05/2024. MG MAMM SCREEN 3D ENMANUEL CAD, 11/05/2021. MAMMO ENMANUEL SCREEN, 07/12/2020. MG MAMM SCREEN ENMANUEL W CAD, 05/14/2019. INDICATIONS: Screening Calculator Name NCI Breast Cancer Risk Assessment Tool 5 Year Breast Cancer Risk 1.90% Lifetime Breast Cancer Risk 13.30% Personal Breast Cancer No Personal Ovarian Cancer No Treatments None Family Cancers None LOCATION: [facility] BREAST COMPOSITION: There are scattered areas of fibroglandular density. FINDINGS: RIGHT BREAST: No significant suspicious finding. [...] 10:59 Dictated By: Shayan Chen M.D. Signed By: 03/07/25 1100 DD/ 1059 TD/TT: Manager Trading: MARII HealthcareRadiology Study observation (narrative)MARII LiuMM TOMOSYNTHESIS SCREENING BIOrdered By: Radiologist Radiology on 65-58-3407[facility] Work Phone: Office Visiton [phone]-up [id number] Naima Hernandez 1970 Date Provider Department Center 03/07/2025 SOURAV MACIAS [facility]ie [facility] Family History Adopted: Yes Problem Relation Age of Onset No Known Problems Mother No Known Problems Father Family Status - Relation Status Age at Mother Father Level of Service:39776 [place] OFFICE/OUTPATIENT ESTABLISHED LOW MDM 20 MIN Reason for Visit and Comments: Follow-up [147777] - Patient is here today for a follow up stress test and Echo. Patient denies chest pain,edema. Patient complains of SOB/DUARTE, occasional palpitations/racing heart, lightheaded/dizziness with position changes Hypertension [291891] Hyperlipidemia [182] Shortness of Breath [526320] - SOB/DUARTE with going up and downstairs. Palpitations [040549] - Palpitations/racing hearts Dizziness [189346] - Dizziness/lightheadedNormalUniversity of Midland Memorial HospitalHbA1c HPLC (Bld) [Mass fraction]Ordered By: Maribeth Galvez on 34-05-2538LhP3a (Bld) [Mass fraction]6.5 %[facility] Office Visiton 89-59-1469Uohutc-up [id number] Naima Hernandez 1970 Provider Department Center 02/16/2025 SOURAV MACIAS NGUYỄN [facility] Family History Adopted: Yes Problem Relation Age of Onset No Known Problems Mother No Known Problems Father Family Status - Relation Status Age at Mother Father Level of Service:90133 [place] OFFICE/OUTPATIENT NEW HIGH MDM 60 MINUTES Reason for Visit and Comments: New Patient [632] - Patient is here today to establish care with cardiology. Patient states she recently had a 30 day holter and a 72 hour holter, along with a stress test. Patient denies chest pain, Hypertension [407321] Hyperlipidemia [182] Shortness of Breath [] - Sob/duarte with and without activity Palpitations [] - Racing heart Fatigue [46] Dizziness [] - Dizziness/lightheaded with position changesNormalUniversity of Midland Memorial HospitalNM KIMBERLYN PERF SPECT REST STRon 29-63-9597[address] [address] Nuclear Medicine Report Signed Patient: NAIMA HERNANDEZ MR#: [id number] : 1970 Acct:[id number] Age/Sex: 54 / F ADM Date: 11/03/24 Loc: NM Attending Dr: ENRIQUE ALBA Ordering Physician: ENRIQUE ALBA Date of Service: 11/03/24 Procedure(s): NM kimberlyn perf SPECT rest str Accession Number(s): [id number] cc: ENRIQUE ALBA Patient Name: NAIMA HERNANDEZ MR#: [id number] : 1970 Exam Date: 11/03/2024 Ordering Doctor: [...] the study was pending per attending physician [facility]. For more details, please see [...] Signed By: 11/04/24 1615 DD/ 1614 TD/TT: Manager Trading:TBHRadiology, Radiologist, - 11/04/2024 [place] [address] Nuclear Medicine Report Signed Patient: NAIMA HERNANDEZ MR#: [id number] : 1970 Acct:[id number] Age/Sex: 54 / F ADM Date: 11/03/24 Loc: NM Attending Dr: ENRIQUE ALBA Ordering Physician: ENRIQUE ALBA Date of Service: 11/03/24 Procedure(s): NM kimberlyn perf SPECT rest str Accession Number(s): [id number] cc: ENRIQUE ALBA Patient Name: NAIMA HERNANDEZ MR#: [id number] : 1970 Exam Date: 11/03/2024 Ordering Doctor: [...] the study was pending per attending physician [facility]. For more details, please see [...] Johnston M.D. Signed By: 11/04/24 1615 DD/ TD/TT: Manager Trading: [facility] Memorial HospitalRadiology Study observation (narrative)[facility] KIMBERLYN PERF SPECT REST STROrdered By: Radiologist Radiology on 92-30-6574ZIVUScotland County Memorial Hospital Work Phone: MLR HEMOGLOBIN A1Con 73-01-1186Pbggvmv [Mass/Vol]166 mg/dLNOPershing Memorial HospitalLzmtvgxmhbAlP2d (Bld) [Mass fraction]7.4 %High4.5 - 6.2 %Sc[facility] County Memorial HospitalComment on above:ADA RECOMMENDED LIMIT 4.0 - 6.0 ADA THERAPEUTIC TARGET < 7.0 ACTION SUGGESTED > 7.0 Interpretation and review of laboratory resultsAbnormalScotland County Memorial HospitalCLINISYNC [facility] Memorial HospitalALL CBC WITH AUTO DIFFon 91-05-7279ENNJGLIAW ABSOLUTE MGMM8ZQUJ HealthcareBasophils/100 WBC (Bld)0.6 %0.2 - 2.0 %NOM HealthcareEosinophils/100 WBC (Bld)1.8 %0.9 - 7.0 %[facility] Memorial HospitalErythrocyte distribution width (RBC) [Ratio]13.7 %11.0 - 15.0 %[facility] Memorial HospitalHematocrit (Bld) [Volume fraction]43.9 %36.0 - 48.0 %[facility] Memorial HospitalHemoglobin (Bld) [Mass/Vol]14.8 g/dL12.0 - 16.0 g/dLNOPershing Memorial HospitalIMMATURE GRANULOCYTES ABS AUTO0.02NOPershing Memorial HospitalImmature granulocytes/100 WBC (Bld)0.4 %0.0 - 0.5 %[facility] HospitalLYMPHOCYTES ABSOLUTE AUTO1.4NOMS HealthcareLymphocytes/100 WBC (Bld)26.3 %20.5 - 60.0 %[facility] Memorial HospitalMCH (RBC) [Entitic mass]28.1 pg26.7 - 34.0 pgNOMercy Hospital JoplinHC (RBC) [Mass/Vol]33.7 g/dL29.9 - 35.2 g/dLNOPershing Memorial HospitalMCV (RBC) [Entitic vol]83.3 fL 81.0 - 99.0 fLNOWA HealthcareMONOCYTES ABSOLUTE AUTO0.3NOW[facility] Healthcare Monocytes/100 WBC (Bld)6.2 %1.7 - 12.0 %NOMS HealthcareNEUTROPHILS ABSOLUTE AUTO 3.3NOWA HealthcareNeutrophils/100 WBC (Bld)64.7 %43.0 - 75.0 %[facility] Platelet mean volume (Bld) [Entitic vol]10 fL9.5 - 13.5 fLNOPershing Memorial HospitalTBH EO #0.1NOMS Acmc Healthcare SystemTB [id number] Acmc Healthcare SystemTB RBC5.27NOMercy Hospital St. Louis WBC5.1 [facility] Memorial HospitalCLINISYNCNOMS HealthcareXR Foot - left 3 Viewson 61-17-2330NNBF: XR FOOT 3+ VIEWS LEFT HISTORY: Pain [...] DA PORTER MD at 16-Jun-2024 09:39:44 AM [facility] IMAGINGDa mccallum MD - 06/16/2024 EXAM: XR FOOT 3+ [...] DA PORTER MD at 16-Jun-2024 09:39:44 AM [facility] NOMS HealthcareXR Foot - left 3 ViewsOrdered By: Da Porter on 24-71-3500BJAGScotland County Memorial Hospital Work Phone: XR FOOT 3+ VIEWS LEFTon 04-60-9155UL FOOT 3+ VIEWS LEFTEXAM: XR FOOT 3+ [...] DA PORTER MD at 16-Jun-2024 09:39:44 AM [facility] TeleradiologyNormalNot AvailableXR Foot - left 3 Viewson 06-15-2024 Radiology Study observation (narrative)NOMS HealthcareXR Knee - left 3 Viewson 63-50-8722SL KNEE 3 VIEWS LEFT Reason for exam: [...] signed and approved by the interpreting Radiologist. NOMS HealthcareXR Knee - left 3 ViewsOrdered By: Messi Carballo on 22-86-1206[facility] Work Phone: XR KNEE 3 VIEWS LEFTon 69-71-1353MQ KNEE 3 VIEWS LEFT XR KNEE 3 [...] Radiologist.NormalNot AvailableXR Knee - left 3 Viewson 04-41-6018Tcgrwwace Study observation (narrative)NOMS HealthcareIGP,APTIMA HPV,AGE GDLNon 04-03-2024 AGE GDLN ACOG TESTINGNote.[facility] HealthcareComment on above:TESTS RESULT FLAG UNITS REF RANGE LAB Clinician Provided Cytology Information Source.............Cervix;Endocervix No. of containers..01 ThinPrep Vial Age Algo ACOG Annabelle... 30-65 01 FLAG LEGEND: L-Low Normal,H-High Normal,LL-Alert Low,HH-Alert High <-Panic Low,>-Panic High,A-Abnormal,AA-Critical Abnormal Performed at: 01 =[facility] [place] [address] Grace Ramos MD, HPV APTIMANegativeNegativeNOMS HealthcareComment on above:This nucleic acid amplification test detects fourteen high- risk HPV types (16,18,31,33,35,39,45,51,52,56,58,59,66,68) without differentiation. Performed at: = - [facility] [id number] Cnc Grinder: Grace Ramos MD, Phone: [phone] Performed at: - [facility] [id number] Cnc Grinder: Grace Ramos MD, Phone: [phone] IGP, APTIMA HPV, RFX 16/18,45Note.NOMS HealthcareComment on above:TESTS RESULT FLAG UNITS REF RANGE LAB DIAGNOSIS: 02 NEGATIVE FOR INTRAEPITHELIAL LESION OR MALIGNANCY. Specimen adequacy: 02 Satisfactory for evaluation. Endocervical and/or squamous metaplastic cells (endocervical component) are present. Performed by: Nathalia Ellis, Regulatory Affairs Strategy Specialist (ASCP) . 02 Note: Note 02 [...] High,A-Abnormal,AA-Critical Abnormal Performed at: 02 [address] [facility] [address] [place] [address] Grace Ramos MD, BRUSH-SPATULA CERVIX ENDOCERVIX CLINISYNCNOWA HealthcareALL LIPID PROFILE (FASTING)on 24-47-5100OEWN HDL RATIO 4.5NOWA HealthcareComment on above:3.3 - 4.4 LOW RISK 4.4 - 7.1 AVERAGE RISK 7.1 - 11.0 MODERATE RISK >11.0 HIGH RISK Cholesterol [Mass/Vol]232 mg/dLHighNINF - 200 mg/dLNOWA HealthcareCholesterol in HDL [Mass/Vol]51 mg/dL40 - 60 mg/dLNOWA HealthcareComment on above:> or =60 mg/dl - LOW CARDIOVASCULAR RISK <40 mg/dl - HIGH CARDIOVASCULAR RISK Magnesium [Mass/Vol]122 mg/dLNOWA HealthcareComment on above:<100 mg/dl OPTIMAL 100-129 mg/dl NEAR OR ABOVE OPTIMAL 130-159 mg/dl BORDERLINE HIGH 160-189 mg/dl HIGH >190 mg/dl VERY HIGH Magnesium [Mass/Vol]59.2 mg/dLNOWA HealthcareTriglyceride [Mass/Vol]296 mg/dL HighNINF - 150 mg/dLNOWA HealthcareCCF CMP (CMP) (FOR REMOTE [facility] USE)on 38-68-4194Ralfdmw [Mass/Vol]3.9 g/dL3.4 - 5.0 g/dLNOWA HealthcareALBUMIN GLOBULIN RATIO1.1[facility] HealthcareALP [Catalytic activity/Vol]102 U/L46 - 116 U/L NOMS HealthcareALT [Catalytic activity/Vol]153 U/LHigh14 - 59 U/LNOMS Healthcare Anion gap [Moles/Vol]14.3 mmol/LNOMS HealthcareAST [Catalytic activity/Vol]98 U/LHigh15 - 37 U/LNOMS HealthcareBilirubin [Mass/Vol]0.4 mg/dL0.2 - 1.0 mg/dL NOMS HealthcareCalcium [Mass/Vol]8.4 mg/dLLow8.5 - 10.1 mg/dLNOMS Healthcare Chloride [Moles/Vol]105 mmol/L98 - 107 mmol/LNOMS HealthcareCO2 [Moles/Vol]29.7 mmol/L21.0 - 32.0 mmol/LNOMS HealthcareCreatinine [Mass/Vol]0.98 mg/dL0.55 - 1.02 mg/dLNOMS HealthcareGFR/1.73 sq M.predicted CKD-EPI (S/P/Bld) [Vol rate/Area]>60>=60 mL/min/1.73m 2NOMS HealthcareGlobulin (S) [Mass/Vol]3.6 g/dL NOMS HealthcareGlucose [Mass/Vol]112 mg/wKRvje09 - 106 mg/dLNOWA Healthcare Potassium [Moles/Vol]4 mmol/L3.5 - 5.1 mmol/LNOMS HealthcareProtein [Mass/Vol] 7.5 g/dL6.4 - 8.2 g/dLNOWA HealthcareSodium [Moles/Vol]145 mmol/L136 - 145 mmol/LNOMS HealthcareTBH EGFR-NON AF DBSPLMZT82Vnj>=60 mL/min/1.73m 2NOMS HealthcareUrea nitrogen [Mass/Vol]13 mg/dL7.0 - 18.0 mg/dLNOWA HealthcareUrea nitrogen/Creatinine [Mass ratio]13.3 mg/mgNOMS HealthcareMM TOMOSYNTHESIS SCREENING BIon 85-54-0341QffM[place] [address] Mammography Report Signed Patient: Naima Hernandez MR#: [id number] : 1970 Acct:[id number] Age/Sex: 53 / F ADM Date: 03/05/24 Loc: MAMMO Attending Dr: ENRIQUE ALBA Ordering Physician: ENRIQUE ALBA Results: Date of Service: 03/05/24 Follow Up: Procedure(s): MM tomosynthesis screening BI Accession Number(s): [id number] cc: ENRIQUE ALBA Patient Name: NAIMA HERNANDEZ MR#: [id number] : 1970 Exam Date: 03/05/2024 Ordering Doctor: [...] LOCATION: [facility] BREAST COMPOSITION: There are scattered areas of [...] Signed By: 03/05/24 1105 DD/ 1104 TD/TT: Manager Trading:TBHRadiology, Radiologist, - 03/05/2024 [place] [address] Mammography Report Signed Patient: Naima Hernandez MR#: [id number] : 1970 Acct:[id number] Age/Sex: 53 / F ADM Date: 03/05/24 Loc: MAMMO Attending Dr: ENRIQUE ALBA Ordering Physician: ENRIQUE ALBA Results: Date of Service: 03/05/24 Follow Up: Procedure(s): MM tomosynthesis screening BI Accession Number(s): [id number] cc: ENRIQUE ALBA Patient Name: NAIMA HERNANDEZ MR#: [id number] : 1970 Exam Date: 03/05/2024 Ordering Doctor: [...] LOCATION: [facility] BREAST COMPOSITION: There are scattered areas of [...] Signed By: 03/05/24 1105 DD/ 1104 TD/TT: Manager Trading: [facility] Memorial HospitalRadiology Study observation (narrative)[facility] TOMOSYNTHESIS SCREENING BIOrdered By: Radiologist Radiology on 35-51-6758OSHDScotland County Memorial Hospital Work Phone: No Panel Informationon 43-37-2476Itdrwedrsnkiiq and review of laboratory resultsAbnormalScotland County Memorial HospitalCLINISYNRalph H. Johnson VA Medical CenterXR DEXA AXIAL SKELETONon 65-74-9847Awp[address] [address] XRay Report Signed Patient: aNima Hernandez MR#: [id number] : 1970 Acct:[id number] Age/Sex: 53 / F ADM Date: 03/05/24 Loc: MAMMO Attending Dr: ENRIQUE ALBA Ordering Physician: ENRIQUE ALBA Date of Service: 03/05/24 Procedure(s): XR DEXA axial skeleton Accession Number(s): [id number] cc: ENRIQUE ALBA [address] [place] [address] Patient Name: NAIMA HERNANDEZ MRN: [id number] date: 1970 Sex: F Assigned Patient Location: [facility] Current Patient Location: [facility] Accession/Order Number: [id number] Exam Date: 03/05/2024 07:00 Report Date: 03/05/2024 [...] prevention and treatment of osteoporosis. Osteoporos Int. 2021;33(10):8220-5772. doi: 10.1007/w21743-081-84138-q. Epub 2021Aug 23. Erratum in: Osteoporos Int. 2021Nov 22;: PMID: 15769971; PMCID: [id number]. Electronically authenticated by: MILA STARKS Date: 03/05/2024 07:37 Dictated By: Mila Starks M.D. Signed By: 03/05/24738 DD/ 6 TD/TT: Manager Trading:TBHRadiology, Radiologist, - 03/05/2024 [place] [address] XRay Report Signed Patient: Naima Hernandez MR#: [id number] : 1970 Acct:[id number] Age/Sex: 53 / F ADM Date: 03/05/24 Loc: MAMMO Attending Dr: ENRIQUE ALBA Ordering Physician: ENRIQUE ALBA Date of Service: 03/05/24 Procedure(s): XR DEXA axial skeleton Accession Number(s): [id number] cc: ENRIQUE ALBA [place] [id number] Patient Name: NAIMA HERNANDEZ MRN: [id number] date: 1970 Sex: F Assigned Patient Location: [facility] Current Patient Location: [facility] Accession/Order Number: [id number] Exam Date: 03/05/2024 07:00 Report Date: 03/05/2024 [...] prevention and treatment of osteoporosis. Osteoporos Int. 2021;33(10):0525-7881. doi: 10.1007/p75800-754-34438-y. Epub 2021Aug 23. Erratum in: Osteoporos Int. 2021Nov 22;: PMID: 59203216; PMCID: [id number]. Electronically authenticated by: MILA STARKS Date: 03/05/2024 07:37 Dictated By: Mila Starks M.D. Signed By: 03/05/24738 DD/ 6 TD/TT: Manager Trading: MARII HealthcareRadiology Study observation (narrative)MARII HealthcareXR DEXA AXIAL SKELETONOrdered By: Radiologist Radiology on 22-02-9957QDRX Healthcare Work Phone: cNOVon [phone] Visit (GASTAV) NAIMA HERNANDEZ ([id number]) 1970 F Date Time Provider Department 10/30/22 1:00 PM RADHA ABDUL During your visit today, we recorded the following information about you: Weight Height 120.2 kg 1.6 m Radha Richey MD 10/30/2022 2:34 PM Signed Hepatology Clinic Mindy Richey MD, FACG, FAASLD Director, [facility] Hepatology [facility] Consult Requested By: Mike Salgado [address] [facility] [address] for evaluation of her fatty liver .. [...] no edema no spiders no palmar erythema CON[employer]ESC[employer] SITTER no asterixis , a+0 X3 Glucose Date [...] Radha Richey MD [facility] Thank you again for your kind referral. Please feel free to contact me if I can be of further assistance to you {I spent 45 minutes in the visit, with more than 50% of the total buis-oa-wjho time of the visit in counseling / coordination of care. Referring Provider: MIKE SALGADO [[id number]] Allergies As of Date: 10/30/2022 (No Known Allergies) Date Reviewed: 10/30/2022 Reviewed by: RIVER Stuart - Fully Assessed Reason for Visit: New Patient [172] Cmt: Consult for fatty liver Primary Visit Diagnosis:Fatty liver [K76.0] Other Visit Diagnosis:Class 3 severe obesity due to excess calories in adult, unspecified BMI, unspecified whether serious comorbidity present (HCC) [E66.01] Order(s):CELIAC SCREEN WITH REFLEX [SQCELSCR] Order #: [id number] FUTURE HEPATITIS A ANTIBODY, IGG [SQAHAVG] Order #: [id number] FUTURE (more content not included)...NormalMetroHealth [facility] 70-67-7845BSHQCcntfy Visit (VIDAL) NAIMA HERNANDEZ ([id number]) 1970 F Date Time Provider Department 08/01/22 3:00 PM MARIAJOSE STALLWORTH During your visit today, we recorded the following information about you: Pulse Blood pressure 101/minute 177/81 Mariajose Stallworth MD 08/01/2022 3:52 PM Signed Rheumatology Outpatient Clinic Date of Service: 08/01/2022 Patient: Naima Hernandez Medical Record: [id number] Primary Care Physician: Zeferino Flores Last Rheumatology visit: None at [facility] History of Present Illness Naima Hernandez [...] knee pain 08/26/2012 OA BMI 40.0-44.9, adult ([facility]) BMI 42 Mixed hyperlipidemia Hyperlipidemia Past Surgical History PAST SURGICAL HISTORY Procedure Laterality Date DELIVERY ONLY , low transverse COLONOSCOP W/ OR W/O [facility] SPEC Colonoscopy EGD EXTRACTION, ERUPTED TOOTH OR EXPOSED ROOT (ELEVATION AND/OR FORCEPS REMOVAL) KNEE SCOPE,MENISECTOMY,MED OR LAT Bilateral Family History No family history on file. Social History Social History Tobacco Use Smoking status: Never Smokeless tobacco: Never Substance Use Topics Alcohol use: No Drug use: No C (more content not included)...NormalSelect Medical Specialty [facility] 62-25-8118Eqzquif (P) [Moles/Vol]19 umol/ESzavkj16-00PlozwghcdWadsworth-Rittman HospitalComment on above:Order Comment: Reason for Exam Elevated liver enzymes;Fatty liverResult Comment: PERFORMED BY: [place] [address] PATHOLOGIST ASSEMBLY PERSON DAGMAR CANO M.D.Performed By: #### CBC, CMP, AMM, ADAL, PT, LIPID #### [place] [address] USAComplete Blood Count Auto Diffon 25-16-0425Jewjwygpm (Bld) [#/Vol]0.0 10*3/uLNormal0.0-0.2FMansfield HospitalComment on above:Order Comment: Reason for Exam Elevated liver enzymes;Fatty liverResult Comment: PERFORMED BY: [place] [address] PATHOLOGIST ASSEMBLY PERSON DAGMAR CANO M.D.Performed By: #### CBC, CMP, AMM, ADAL, PT, LIPID #### [place] [address] USABasophils/100 WBC (Bld)0.4 %Normal.Wadsworth-Rittman HospitalComment on above:Order Comment: Reason for Exam Elevated liver enzymes;Fatty liverPerformed By: #### CBC, CMP, AMM, ADAL, PT, LIPID #### [place] [address] USAEosinophils (Bld) [#/Vol]0.1 10*3/uLNormal0.0-0.45 [facility]sworth-Rittman HospitalComment on above:Order Comment: Reason for Exam Elevated liver enzymes;Fatty liverPerformed By: #### CBC, CMP, AMM, ADAL, PT, LIPID #### [place] [address] USAEosinophils/100 WBC (Bld)1.1 %Normal.Wadsworth-Rittman HospitalComment on above:Order Comment: Reason for Exam Elevated liver enzymes;Fatty liverPerformed By: #### CBC, CMP, AMM, ADAL, PT, LIPID #### [facility] [address] [place] [address] USAErythrocyte distribution width (RBC) [Ratio]14.6 %Normal 11.9-15.3FMansfield HospitalComment on above:Order Comment: Reason for Exam Elevated liver enzymes;Fatty liverPerformed By: #### CBC, CMP, AMM, ADAL, PT, LIPID #### [facility] [address] [place] [address] USAHematocrit (Bld) [Volume fraction]45.3 %Ufvgnk13.0-46.4 [facility]sworth-Rittman HospitalComment on above:Order Comment: Reason for Exam Elevated liver enzymes;Fatty liverPerformed By: #### CBC, CMP, AMM, ADAL, PT, LIPID #### [place] [address] USAHemoglobin (Bld) [Mass/Vol]15.2 g/jWEontix68.8-15.4 [facility]-Rittman HospitalComment on above:Order Comment: Reason for Exam Elevated liver enzymes;Fatty liverPerformed By: #### CBC, CMP, AMM, ADAL, PT, LIPID #### [place] [address] USALymphocytes (Bld) [#/Vol]1.6 10*3/uLNormal1.00-4.8 [facility]-Rittman HospitalComment on above:Order Comment: Reason for Exam Elevated liver enzymes;Fatty liverPerformed By: #### CBC, CMP, AMM, ADAL, PT, LIPID #### [place] [address] USALymphocytes/100 WBC (Bld)26.9 %Normal.Wadsworth-Rittman HospitalComment on above:Order Comment: Reason for Exam Elevated liver enzymes;Fatty liverPerformed By: #### CBC, CMP, AMM, ADAL, PT, LIPID #### [place] [address] USAMCH (RBC) [Entitic mass]27.3 mhEcnimo58.7-34.3FMansfield HospitalComment on above:Order Comment: Reason for Exam Elevated liver enzymes;Fatty liverPerformed By: #### CBC, CMP, AMM, ADAL, PT, LIPID #### [facility] [address] [place] [address] USAMCV (RBC) [Entitic vol]81.5 xKKsdzsu69-526QzcylhfirWadsworth-Rittman HospitalComment on above:Order Comment: Reason for Exam Elevated liver enzymes;Fatty liverPerformed By: #### CBC, CMP, AMM, ADAL, PT, LIPID #### [facility] [address] [place] [address] USAMean Corpuscular HGB Conc33.5 g/yHQrrwez66.0-35.0Wadsworth-Rittman HospitalComment on above:Order Comment: Reason for Exam Elevated liver enzymes;Fatty liverPerformed By: #### CBC, CMP, AMM, ADAL, PT, LIPID #### [facility] [address] [place] [address] USAMonocytes (Bld) [#/Vol]0.4 10*3/uLNormal0.0-0.8Wadsworth-Rittman HospitalComment on above:Order Comment: Reason for Exam Elevated liver enzymes;Fatty liverPerformed By: #### CBC, CMP, AMM, ADAL, PT, LIPID #### [facility] [address] [place] [address] USAMonocytes/100 WBC (Bld)6.3 %Normal.Wadsworth-Rittman HospitalComment on above:Order Comment: Reason for Exam Elevated liver enzymes;Fatty liverPerformed By: #### CBC, CMP, AMM, ADAL, PT, LIPID #### [facility] [address] [place] [address] USANeutrophils (Bld) [#/Vol]3.9 10*3/uLNormal1.8-7.7FMansfield HospitalComment on above:Order Comment: Reason for Exam Elevated liver enzymes;Fatty liverPerformed By: #### CBC, CMP, AMM, ADAL, PT, LIPID #### [facility] [address] [place] [address] USANeutrophils/100 WBC (Bld)65.3 %Normal.Wadsworth-Rittman HospitalComment on above:Order Comment: Reason for Exam Elevated liver enzymes;Fatty liverPerformed By: #### CBC, CMP, AMM, ADAL, PT, LIPID #### [facility] [address] [place] [address] USANucleated RBC/100 WBC (Bld) [Ratio]0.2 %Normal0-0.5 [facility]-Rittman HospitalComsturgis hospital on above:Order Comment: Reason for Exam Elevated liver enzymes;Fatty liverPerformed By: #### CBC, CMP, AMM, ADAL, PT, LIPID #### [facility] [address] [place] [address] USAPlatelet mean volume (Bld) [Entitic vol]8.2 fLNormal 6.3-10.7FMansfield HospitalComment on above:Order Comment: Reason for Exam Elevated liver enzymes;Fatty liverPerformed By: #### CBC, CMP, AMM, ADAL, PT, LIPID #### [facility] [address] [place] [address] USAPlatelets (Bld) [#/Vol]282 10*3/iMZdgfph771-520MqbxgxyqdWadsworth-Rittman HospitalComment on above:Order Comment: Reason for Exam Elevated liver enzymes;Fatty liverPerformed By: #### CBC, CMP, AMM, ADAL, PT, LIPID #### [facility] [address] [place] [address] USARBC (Bld) [#/Vol]5.56 10*6/uLHigh3.60-5.00Wadsworth-Rittman HospitalComment on above:Order Comment: Reason for Exam Elevated liver enzymes;Fatty liverPerformed By: #### CBC, CMP, AMM, ADAL, PT, LIPID #### [facility] [address] [place] [address] USAWBC (Bld) [#/Vol]5.9 10*3/uLNormal4.5-11.0Wadsworth-Rittman HospitalComsturgis hospital on above:Order Comment: Reason for Exam Elevated liver enzymes;Fatty liverPerformed By: #### CBC, CMP, AMM, ADAL, PT, LIPID #### [facility] [address] [place], [place] [id number] USAComprehensive Metabolic Panelon [id number] [Mass/Vol]4.4 g/dLNormal3.2-5.5FMansfield HospitalComment on above:Order Comment: Reason for Exam Elevated liver enzymes;Fatty liverPerformed By: #### CBC, CMP, AMM, ADAL, PT, LIPID #### [facility] [address] [place] [address] USAAlbumin/Globulin [Mass ratio]1.6 {ratio}SCCI Hospital LimaComment on above:Order Comment: Reason for Exam Elevated liver enzymes;Fatty liverPerformed By: #### CBC, CMP, AMM, ADAL, PT, LIPID #### [place] [address] USAALP [Catalytic activity/Vol]75 U/KZrdlfy75-75MdqnvgsbrWadsworth-Rittman HospitalComment on above:Order Comment: Reason for Exam Elevated liver enzymes;Fatty liverPerformed By: #### CBC, CMP, AMM, ADAL, PT, LIPID #### [facility] [address] [place] [address] USAALT [Catalytic activity/Vol]71 U/RDcsj08-54AfqrggnsjWadsworth-Rittman HospitalComment on above:Order Comment: Reason for Exam Elevated liver enzymes;Fatty liverPerformed By: #### CBC, CMP, AMM, ADAL, PT, LIPID #### [facility] [address] [place] [address] USAAnion gap [Moles/Vol]11.4 mmol/LNormal6.0-15.0Wadsworth-Rittman HospitalComment on above:Order Comment: Reason for Exam Elevated liver enzymes;Fatty liverPerformed By: #### CBC, CMP, AMM, ADAL, PT, LIPID #### [facility] [address] [place] [address] USAAST [Catalytic activity/Vol]51 U/ZTbrf57-42BhwkkbwvwWadsworth-Rittman HospitalComment on above:Order Comment: Reason for Exam Elevated liver enzymes;Fatty liverPerformed By: #### CBC, CMP, AMM, ADAL, PT, LIPID #### [address] [place] [address] USABilirubin [Mass/Vol]0.7 mg/dLNormal0.3-1.2FMansfield HospitalComment on above:Order Comment: Reason for Exam Elevated liver enzymes;Fatty liverPerformed By: #### CBC, CMP, AMM, ADAL, PT, LIPID #### [facility] [address] [place] [address] USACalcium [Mass/Vol]9.3 mg/dLNormal8.2-10.2FMansfield HospitalComment on above:Order Comment: Reason for Exam Elevated liver enzymes;Fatty liverPerformed By: #### CBC, CMP, AMM, ADAL, PT, LIPID #### [facility] [address] [place] [address] USAChloride [Moles/Vol]102 mmol/ZVutgdc89-747SunbrrujbWadsworth-Rittman HospitalComment on above:Order Comment: Reason for Exam Elevated liver enzymes;Fatty liverPerformed By: #### CBC, CMP, AMM, ADAL, PT, LIPID #### [facility] [address] [place] [address] USACO2 [Moles/Vol]25.6 mmol/JFnoxtl58.0-30.0Wadsworth-Rittman HospitalComment on above:Order Comment: Reason for Exam Elevated liver enzymes;Fatty liverPerformed By: #### CBC, CMP, AMM, ADAL, PT, LIPID #### [facility] [address] [place] [address] USACreatinine [Mass/Vol]0.78 mg/dLNormal0.44-1.03Wadsworth-Rittman HospitalComment on above:Order Comment: Reason for Exam Elevated liver enzymes;Fatty liverPerformed By: #### CBC, CMP, AMM, ADAL, PT, LIPID #### [facility] [address] [place] [address] USAEstimated GFR ( Daphne> 60NormalWadsworth-Rittman HospitalComment on above:Order Comment: Reason for Exam Elevated liver enzymes;Fatty liverResult Comment: GFR estimated reference range: According to KDOQI guidelines, <60 ml/min/1.73m2 is sufficient to diagnose a patient with chronic kidney disease.Performed By: #### CBC, CMP, AMM, ADAL, PT, LIPID #### [facility] [address] [place] [address] USAEstimated GFR (Non- Am> 60NoDelaware County HospitalComment on above:Order Comment: Reason for Exam Elevated liver enzymes;Fatty liverPerformed By: #### CBC, CMP, AMM, ADAL, PT, LIPID #### [facility] [address] [place] [address] USAGlobulin (S) [Mass/Vol]2.7 g/dLNoDelaware County HospitalComment on above:Order Comment: Reason for Exam Elevated liver enzymes;Fatty liverPerformed By: #### CBC, CMP, AMM, ADAL, PT, LIPID #### [place] [address] USAGlucose [Mass/Vol]96 mg/uVUdchkx03-486LclbxhiesWadsworth-Rittman HospitalComment on above:Order Comment: Reason for Exam Elevated liver enzymes;Fatty liverResult Comment: Random Glucose Reference Range is dependent on time and content of last meal. Glucose of more than 200 mg/dL in a nonstressed, ambulatory subject supports the diagnosis of Diabetes Mellitus. ADA recommended reference rangePerformed By: #### CBC, CMP, AMM, ADAL, PT, LIPID #### [place] [address] USAPotassium [Moles/Vol]4.0 mmol/LNormal3.5-5.1FMansfield HospitalComment on above:Order Comment: Reason for Exam Elevated liver enzymes;Fatty liverPerformed By: #### CBC, CMP, AMM, ADAL, PT, LIPID #### [facility] [address] [place] [address] USAProtein [Mass/Vol]7.1 g/dLNormal6.1-7.9Wadsworth-Rittman HospitalComment on above:Order Comment: Reason for Exam Elevated liver enzymes;Fatty liverPerformed By: #### CBC, CMP, AMM, ADAL, PT, LIPID #### [facility] [address] [place] [address] USASodium [Moles/Vol]135 mmol/WAgl450-044UltmvlksxWadsworth-Rittman HospitalComment on above:Order Comment: Reason for Exam Elevated liver enzymes;Fatty liverPerformed By: #### CBC, CMP, AMM, ADAL, PT, LIPID #### [facility] [address] [place] [id number] USAUrea nitrogen [Mass/Vol]11 mg/dLNormal9-23Wadsworth-Rittman HospitalComment on above:Order Comment: Reason for Exam Elevated liver enzymes;Fatty liverPerformed By: #### CBC, CMP, AMM, ADAL, PT, LIPID #### [facility] [address] [place] [id number] USAFerritinon [id number] [Mass/Vol]127.6 ng/mLNormal 11-306.8Wadsworth-Rittman HospitalComment on above:Order Comment: Reason for Exam Elevated liver enzymes;Fatty liverPerformed By: #### CBC, CMP, AMM, ADAL, PT, LIPID #### [facility] [address] [place] [id number] USALipid Panelon [id number] [Mass/Vol]226 mg/dL Gerw557-149MupskyivvWadsworth-Rittman HospitalComment on above:Order Comment: Reason for Exam Elevated liver enzymes;Fatty liverResult Comment: Chol less than 200 mg/dl low risk Chol 201-239 mg/dl borderline risk Chol 240 mg/dl and greater high riskPerformed By: #### CBC, CMP, AMM, ADAL, PT, LIPID #### [facility] [address] [place] [id number] USACholesterol in HDL [Mass/Vol]50 mg/dDUziucw73-28YisslfxquWadsworth-Rittman HospitalComment on above:Order Comment: Reason for Exam Elevated liver enzymes;Fatty liverResult Comment: HDL CHOL ATP-III CLASSIFICATION Cardiovascular Risk HDL > or equal to 60 mg/dL LOW HDL < 40 mg/dL HIGHPerformed By: #### CBC, CMP, AMM, ADAL, PT, LIPID #### [facility] [address] [place] [address] USACholesterol.total/Cholesterol in HDL [Mass ratio]4.5 {ratio}Normal<5.0Wadsworth-Rittman HospitalComment on above:Order Comment: Reason for Exam Elevated liver enzymes;Fatty liverResult Comment: PERFORMED BY: [address] [address] PATHOLOGIST ASSEMBLY PERSON DAGMAR CANO M.D.Performed By: #### CBC, CMP, AMM, ADAL, PT, LIPID #### [facility] [address] [place] [address] USALDL Cholesterol,Tgioxzcemc526 mg/dLHigh0-100Wadsworth-Rittman HospitalComment on above:Order Comment: Reason for Exam Elevated liver enzymes;Fatty liverResult Comment: LDL ATP III CLASSIFICATION LDL less than 100 mg/dL Optimal LDL 100-129 mg/dL Near or above optimal LDL 130-159 mg/dL Borderline high LDL 160-189 mg/dL High LDL greater than 189 mg/dL Very highPerformed By: #### CBC, CMP, AMM, ADAL, PT, LIPID #### [address] [address] USATriglyceride w/Pbluzj478 mg/wGDvbl35-090YzjxbtulbWadsworth-Rittman HospitalComment on above:Order Comment: Reason for Exam Elevated liver enzymes;Fatty liverResult Comment: TRIG ATP III CLASSIFICATION TRIG less than 150 mg/dL Normal TRIG 150-199 mg/dL Borderline high TRIG 200-500 mg/dL High TRIG greater than 500 mg/dL Very high Standard traceable to the Center for Disease Conrtrol and Prevention (CDC) test method.Performed By: #### CBC, CMP, AMM, ADAL, PT, LIPID #### [facility] [address] [place] [address] USAVLDL YTYOEQFRBSU68 mg/dLNormalWadsworth-Rittman HospitalComment on above:Order Comment: Reason for Exam Elevated liver enzymes;Fatty liverPerformed By: #### CBC, CMP, AMM, ADAL, PT, LIPID #### [facility] [address] [place] [address] USAProthrombin Time INRon [id number] Coag (PPP) [Relative time]1.1 {INR}SCCI Hospital LimaComment on above:Order Comment: Reason for Exam Elevated [...] heart valves: 3 - 4.5 PERFORMED BY: [place] [address] PATHOLOGIST ASSEMBLY PERSON DAGMAR CANO M.D.Performed By: #### CBC, CMP, AMM, ADAL, PT, LIPID #### [facility] [address] [place] [address] USAPT Coag (PPP) [Time]12.1 sNormal9.0-12.9Wadsworth-Rittman HospitalComment on above:Order Comment: Reason for Exam Elevated liver enzymes;Fatty liverPerformed By: #### CBC, CMP, AMM, ADAL, PT, LIPID #### [facility] [address] [place], [place] [id number] USAMG MAMM SCREEN 3D ENMANUEL CADon [id number] MAMM SCREEN 3D ENMANUEL CADPatient: HERNANDEZNAIMA Exam Date: 11/05/2021 : 1970 Gender:F Ordering : DR OSCAR NAVARRO . Admission #: [id number] Family : Order #: [id number] CLICK HERE TO VIEW EXAM RADIOLOGY REPORT [...] LOCATION: [facility] BREAST COMPOSITION: Scattered areas fibroglandular density. FINDINGS: [...] by: Montrell Romeo MD on 11/05/2021 at 10:43[facility] PANEL 2: 30 to 65on 11-05-2021..NormalThe [facility] on above:Result Comment: Performed at: WBPerformed By: #### [id number] #### [facility] [address] [place] [address] Dr. Peg ShelbyAge Gdln ACOG Htpqkpw32-31ZrzaycNceUniversity Hospitals Conneaut Medical CenterComsturgis hospital on above:Performed By: #### [id number] #### [facility] [address] [place] [address] Dr. Peg ShelbyDIAGNOSIS:CommentRiverside Methodist Hospital on above: Result Comment: NEGATIVE FOR INTRAEPITHELIAL LESION OR MALIGNANCY. Performed at: WBPerformed By: #### [id number] #### [facility] [address] [place] [address] Dr. Peg ShelbyHPV AptimaNegativeNormalNegativeWooster Community Hospital on above:Result Comment: This nucleic acid amplification test detects fourteen high-risk HPV types (16,18,31,33,35,39,45,51,52,56,58,59,66,68) without differentiation. Performed at: =GPerformed By: #### [id number] #### [facility] [address] [place] [address] Dr. ePg ShelbyMethodology:CommentRiverside Methodist Hospital on above: Result Comment: This liquid based ThinPrep(R) pap test was screened with the use of an image guided system. Performed at: WBPerformed By: #### [id number] #### [facility] [address] [place] [address] Dr. Peg ShelbyNote:CommentRiverside Methodist Hospital on above:Result Comment: The Pap smear is a screening test designed to aid in the detection of premalignant and malignant conditions of the uterine cervix. It is not a diagnostic procedure and should not be used as the sole means of detecting cervical cancer. Both false-positive and false-negative reports do occur. . Performed at: WBPerformed By: #### [id number] #### [facility] [address] [place] [address] Dr. Peg ShelbyPerformed by:CommentNoOhioHealth Grant Medical CenterComment on above: Result Comment: Janey Gonzalez, Regulatory Affairs Strategy Specialist (ASCP) Performed at: Performed By: #### [id number] #### [place] [address] Dr. Peg ShelbySpecimeperez adequacy:CommentUniversity Hospitals Conneaut Medical CenterComsturgis hospital on above:Result Comment: Satisfactory for evaluation. Endocervical and/or squamous metaplastic cells (endocervical component) are present. Performed at: WBPerformed By: #### [id number] #### [facility] [address] [place] [address] Dr. Peg ShelbyVAGINITIS/VAGINOSIS DNA PROBEon [id number] speciesNegative NormalNegativeToledo HospitalComment on above:Performed By: #### VAGINT #### [place] [address] Dr. Peg Savagednerella vaginalisPositiveAbnormalNegativeToledo HospitalComment on above:Performed By: #### VAGINT #### [facility] [address] [place] [address] Dr. Peg ShelbyTrichomonas vaginalisNegativeNormalNegativeToledo Hospital Comment on above:Performed By: #### VAGINT #### [facility] [address] [place] [address] Dr. Peg ShelbyUS SINGLE QUAD RT UPPERon [id number] SINGLE QUAD RT UPPEREXAM: Ultrasound of the [...] Electronically authenticated by: MONTRELL WU Date: 2021-10-16 07:39University [facility] Conneaut Medical CenterLIPID PROFILEon [id number]-HDL RATIO NORMSEE BELOWUniversity Hospitals Conneaut Medical CenterComsturgis hospital on above:Result Comment: 3.3 - 4.4 LOW RISK 4.4 - 7.1 AVERAGE RISK 7.1 - 11.0 MODERATE RISK >11.0 HIGH RISKPerformed By: #### LIPID, CMP #### [facility] [address] [place] [address] Dr. Peg Brookeesteran [Mass/Vol]235 mg/dLCritically high<=200The [facility] on above:Performed By: #### LIPID, CMP #### [facility] [address] [place] [address] Dr. Peg Brookeesterol in HDL [Mass/Vol]42 mg/kGAdogtq94-86Wyh [facility] on above:Performed By: #### LIPID, CMP #### [facility] [address] [place] [address] Dr. Peg Brookeesterol in LDL [Mass/Vol]139.8 mg/dLRiverside Methodist Hospital on above:Performed By: #### LIPID, CMP #### [facility] [address] [place] [address] Dr. Peg Owens.total/Cholesterol in HDL [Mass ratio]5.6 {ratio} NormalThe [facility] on above:Performed By: #### LIPID, CMP #### [facility] [address] [place] [address] Dr. Peg Munson NORMAL> or = 60 mg/dl - LOW CARDIOVASCULAR RISK <40 mg/dl - HIGH CARDIOVASCULAR RISKUniversity Hospitals Conneaut Medical CenterComment on above:Performed By: #### LIPID, CMP #### [facility] [address] [place] [address] Dr. Peg Rivera CALC NORMALSEE BELOWUniversity Hospitals Conneaut Medical CenterComment on above:Result Comment: <100 mg/dl OPTIMAL 100 - 129 mg/dl NEAR OR ABOVE OPTIMAL 130 - 159 mg/dl BORDERLINE HIGH 160 - 189 mg/dl HIGH >190 mg/dl VERY HIGH Performed By: #### LIPID, CMP #### [facility] [address] [place] [address] Dr. Peg ShelbyTriglyceride [Mass/Vol]266 mg/dLCritically high<=150[facility] on above:Performed By: #### LIPID, CMP #### [facility] [address] [place] [address] Dr. Peg GilliladnLDL CALC53.2 mg/dLNoOhioHealth Grant Medical CenterComsturgis hospital on above: Performed By: #### LIPID, CMP #### [facility] [address] [place] [address] Dr. Peg Herrera 14(COMP METB)on [id number] [Mass/Vol]3.9 g/dLNormal 3.4-5.0[facility] on above:Performed By: #### LIPID, CMP #### [facility] [address] [place] [address] Dr. Peg ShelbyAlbumin/Globulin [Mass ratio]1.1 {ratio}NormalThe [facility] on above:Performed By: #### LIPID, CMP #### [facility] [address] [place] [address] Dr. Peg Mustafa [Catalytic activity/Vol]90 U/YZglhbv16-860Qxr [facility] on above:Performed By: #### LIPID, CMP #### [facility] [address] [place] [address] Dr. Yilan ChangALT [Catalytic activity/Vol]131 U/LCritically jqwj50-96Bks [facility] OhioComment on above:Performed By: #### LIPID, CMP #### [facility] [address] [place] [address] Dr. Peg ShelbyAnion gap [Moles/Vol]10.7 mmol/LNormalToledo Hospital Comment on above:Performed By: #### LIPID, CMP #### [facility] [address] [place] [address] [address] Peg ShelbyAST [Catalytic activity/Vol]78 U/LCritically fgfc25-07Bzo [facility] Southeast OhioComment on above:Performed By: #### LIPID, CMP #### [facility] [address] [place] [address] Dr. Peg ShelbyBilirubin [Mass/Vol]0.5 mg/dLNormal0.2-1.0[facility] Comment on above:Performed By: #### LIPID, CMP #### [facility] [address] [place] [address] Dr. Peg ShelbyCalcium [Mass/Vol]8.6 mg/dLNormal8.5-10.1[facility] Comment on above:Performed By: #### LIPID, CMP #### [facility] [address] [place] [address] Dr. Peg ShelbyChloride [Moles/Vol]104 mmol/ASqdzar64-012NynToledo Hospital Comment on above:Performed By: #### LIPID, CMP #### [facility] [address] [place] [address] Dr. Peg ShelbyCO2 [Moles/Vol]29.5 mmol/PQrtnnd24.0-32.0The [facility] Comment on above:Performed By: #### LIPID, CMP #### [facility] [address] [place] [address] Dr. Peg ShelbyCreatinine [Mass/Vol]0.83 mg/dLNormal0.55-1.02The [facility] - Southeast OhioComment on above:Performed By: #### LIPID, CMP #### [facility] [address] [place], [place] [address] Dr. Peg BentleyGFR-AF GUAMANIAN>60Normal>=60The [facility] - Southeast OhioComment on above:Performed By: #### LIPID, CMP #### [facility] [address] [place] [address] [address] Peg BentleyGFR-NON AF GUAMANIAN>60Normal>=60The [facility] Southeast OhioComment on above:Performed By: #### LIPID, CMP #### [facility] [address] [place] [address] [address] Peg ShelbyGlobulin (S) [Mass/Vol]3.4 g/dLNormalThe [facility] Southeast OhioComment on above:Performed By: #### LIPID, CMP #### [facility] [address] [place] [address] Dr. Peg ShelbyGlucose [Mass/Vol]108 mg/dLCritically cluw87-665Qlk [facility] OhioComment on above:Performed By: #### LIPID, CMP #### [facility] [address] [place] [address] Dr. Peg ShelbyPotassium [Moles/Vol]4.2 mmol/LNormal3.5-5.1The [facility] Comment on above:Performed By: #### LIPID, CMP #### [facility] [address] [place] [address] Dr. Peg ShelbyProtein [Mass/Vol]7.3 g/dLNormal6.4-8.2[facility] Comment on above:Performed By: #### LIPID, CMP #### [facility] [address] [place] [address] Dr. Peg ShelbySodium [Moles/Vol]140 mmol/BExfbyd818-135Okx [facility] Comment on above:Performed By: #### LIPID, CMP #### [facility] [address] [place] [address] Dr. Peg ShelbyUrea nitrogen [Mass/Vol]14.0 mg/dLNormal7.0-18.0The [facility] Southeast OhioComment on above:Performed By: #### LIPID, CMP #### [facility] [address] [place] [address] [address] Peg ShelbyUrea nitrogen/Creatinine [Mass ratio]16.9 mg/mgNoOhioHealth Grant Medical CenterComment on above:Performed By: #### LIPID, CMP #### [facility] [address] [place] [address] Dr. Peg MeyerID PROFILEon 66-26-2912YHML-HDL RATIO NORMSEE [facility] Medical CenterComment on above:Result Comment: 3.3 - 4.4 LOW RISK 4.4 - 7.1 AVERAGE RISK 7.1 - 11.0 MODERATE RISK >11.0 HIGH RISKPerformed By: #### CMP, LIPID #### [facility] [address] [place] [address] Dr. Peg ShelbyCholesterol [Mass/Vol]245 mg/dLCritically high<=200Toledo HospitalComment on above:Performed By: #### CMP, LIPID #### [facility] [address] [place] [address] Dr. Peg ShelbyCholesterol in HDL [Mass/Vol]42 mg/dLUniversity Hospitals Conneaut Medical Center Comment on above:Performed By: #### CMP, LIPID #### [facility] [address] [place] [address] Dr. Peg ShelbyCholesterol in LDL [Mass/Vol]144.8 mg/dLUniversity Hospitals Conneaut Medical CenterComment on above:Performed By: #### CMP, LIPID #### [facility] [address] [place] [address] Dr. Peg Brookeesteran.total/Cholesterol in HDL [Mass ratio]5.8 {ratio} NormalToledo HospitalComment on above:Performed By: #### CMP, LIPID #### [facility] [address] [place] [address] Dr. Peg ShelbyHDL NORMAL> or = 60 mg/dl - LOW CARDIOVASCULAR RISK <40 mg/dl - HIGH CARDIOVASCULAR RISKUniversity Hospitals Conneaut Medical CenterComment on above:Performed By: #### CMP, LIPID #### [facility] [address] [place] [address] Dr. Peg Rivera CALC NORMALSEE BELOWNoOhioHealth Grant Medical CenterComment on above:Result Comment: <100 mg/dl OPTIMAL 100 - 129 mg/dl NEAR OR ABOVE OPTIMAL 130 - 159 mg/dl BORDERLINE HIGH 160 - 189 mg/dl HIGH >190 mg/dl VERY HIGH Performed By: #### CMP, LIPID #### [facility] [address] [place] [address] [address] Peg ShelbyTriglyceride [Mass/Vol]291 mg/dLCritically high<=150The [facility] OhioComment on above:Performed By: #### CMP, LIPID #### [facility] [address] [place] [address] [address] Peg ShelbyVLDL CALC58.2 mg/dLNoOhioHealth Grant Medical CenterComment on above: Performed By: #### CMP, LIPID #### [facility] [address] [place] [address] Dr. Peg ShelbyPROF 14(COMP METB)on 15-29-4594Bsmqloz [Mass/Vol]4.0 g/dLNormal 3.5-5.0The [facility] OhioComment on above:Performed By: #### CMP, LIPID #### [facility] [address] [place] [address] Dr. Peg ShelbyAlbumin/Globulin [Mass ratio]1.1 {ratio}NormalThe [facility] OhioComment on above:Performed By: #### CMP, LIPID #### [facility] [address] [place] [address] [address] Peg Mustafa [Catalytic activity/Vol]88 U/DOuqqle50-249Kvv [facility] OhioComment on above:Performed By: #### CMP, LIPID #### [facility] [address] [place] [address] [address] Peg Jones [Catalytic activity/Vol]112 U/LCritically high9-52The [facility] OhioComment on above:Performed By: #### CMP, LIPID #### [facility] [address] [place] [address] Dr. Peg Anaya gap [Moles/Vol]12.5 mmol/LNormalThe [facility] Comment on above:Performed By: #### CMP, LIPID #### [facility] [address] [place] [address] [address] Peg ShelbyAST [Catalytic activity/Vol]52 U/LCritically olqp27-10Dgp [facility] Southeast OhioComment on above:Performed By: #### CMP, LIPID #### [facility] [address] [place] [address] Dr. Peg ShelbyBilirubin [Mass/Vol]0.5 mg/dLNormal0.2-1.3The [facility] Comment on above:Performed By: #### CMP, LIPID #### [facility] [address] [place] [address] Dr. Peg ShelbyCalcium [Mass/Vol]8.9 mg/dLNormal8.4-10.2[facility] Comment on above:Performed By: #### CMP, LIPID #### [facility] [address] [place] [address] Dr. Peg ShelbyChloride [Moles/Vol]104 mmol/HNyuaet47-384Muv [facility] Comment on above:Performed By: #### CMP, LIPID #### [facility] [address] [place] [address] Dr. Peg ShelbyCO2 [Moles/Vol]30.5 mmol/LCritically high22.0-30.0The [facility] OhioComment on above:Performed By: #### CMP, LIPID #### [facility] [address] [place] [address] Dr. Peg ShelbyCreatinine [Mass/Vol]0.82 mg/dLNormal0.52-1.04The [facility] OhioComment on above:Performed By: #### CMP, LIPID #### [facility] [address] [place] [address] Dr. Peg BentleyGFR-AF GUAMANIAN>60Normal>=60The [facility] OhioComment on above:Performed By: #### CMP, LIPID #### [facility] [address] [place] [address] Dr. Peg BentleyGFR-NON AF GUAMANIAN>60Normal>=60The [facility] OhioComment on above:Performed By: #### CMP, LIPID #### [facility] [address] [address] [address] Peg ShelbyGlobulin (S) [Mass/Vol]3.7 g/dLNormalThSelect Medical Specialty Hospital - CantonComment on above:Performed By: #### CMP, LIPID #### [facility] [address] [address] [address] Peg ShelbyGlucose [Mass/Vol]118 mg/dLCritically uowa51-718Iyd [facility] OhioComment on above:Performed By: #### CMP, LIPID #### [facility] [address] [place] [address] Dr. Peg ShelbyPotassium [Moles/Vol]4.0 mmol/LNormal3.4-5.0The [facility] Comment on above:Performed By: #### CMP, LIPID #### [facility] [address] [place] [address] Dr. Peg ShelbyProtein [Mass/Vol]7.7 g/dLNormal6.1-8.2The [facility] Comment on above:Performed By: #### CMP, LIPID #### [facility] [address] [place] [address] Dr. Peg ShelbySodium [Moles/Vol]143 mmol/ZCkbzfi877-276HirT[facility] Comment on above:Performed By: #### CMP, LIPID #### [facility] [address] [place] [address] Dr. Peg ShelbyUrea nitrogen [Mass/Vol]13.0 mg/dLNormal7.0-17.0The [facility] OhioComment on above:Performed By: #### CMP, LIPID #### [facility] [address] [place] [address] Dr. Peg Warren nitrogen/Creatinine [Mass ratio]15.9 mg/mgNoOhioHealth Grant Medical CenterComment on above:Performed By: #### CMP, LIPID #### [facility] [address] [place] [address] Dr. Peg Shelby2019 Novel Coronavirus (CoVID-19), LUCINDA LCon 06-47-2167JQKY-CoV-2, LUCINDA (COVID-19) LCDetectedAbnormalNot [facility] CenterComment on above: Order Comment: [id number] Results Called To Imelda at Dr. Alba's By JOSUE And Read Back For Confirmation On 12/23/2019 11:38:22EDT.Result Comment: This test was developed and its performance characteristics determined by [employer]. This test has not been FDA cleared [...] detected) result in this assay. Performed At: [facility] [address] [place] [id number] Kenna Bach MD Ph:[phone] By: #### [id number] #### [facility] (DEFAULT) [address] [place] [address] [id number] Summaryon 60-11-3481Knudwd SummaryCODING DATE: 12/22/2019 FINAL [facility] STATUS: Home PAYOR: Commercial Insurance ADMIT [...] By: Sheryl Lovett Date Saved: 12/22/2019 01:57 [facility] CenterConsent Formson 12-22-2019 Consent [id number]#1.00OTGTSelect [facility]ty [facility] Vital Signs Date TimeVital SignValuePerforming UbtvpdzpmLytioxgk28-27-0783 08:27-0500Body ztzlpy199.02 cmMaribeth Galvez SCIENCE TEACHER Work Phone: [phone]11-05-2025 08:27-0500 Body mass index (BMI) [Ratio]47.2 kg/h4OkmkugviMaribeth Galvez SCIENCE TEACHER Work Phone: [phone] [place], [place] 5507711-05-2025 08:27-0500 Body ypjdkm065.1 kgMaribeth Galvez SCIENCE TEACHER Work Phone: [phone] [place], [place] 5507711-05-2025 08:27-0500 Diastolic blood rduseysu031 mm[Hg]Maribeth Galvez SCIENCE TEACHER Work Phone: [phone] [place], [place] 550[address]11-05-2025 08:27-0500 Heart lloy516 /minMaribeth Galvez SCIENCE TEACHER Work Phone: [phone] [place], [place] 550[address]11-05-2025 08:27-0500 Respiratory rate14 /minMaribeth Galvez SCIENCE TEACHER Work Phone: [phone] [place], [place] 550[address]11-05-2025 08:27-0500 SaO2% (BldA) [Mass fraction]96 %Maribeth Galvez SCIENCE TEACHER Work Phone: [phone] [place], [place] [address]11-05-2025 08:27-0500 Systolic blood wcmyxufj464 mm[Hg]Maribeth Galvez SCIENCE TEACHER Work Phone: [phone]10-08-2025 08:54-0400 Body zldiap391.02 cmMaribeth Castilloryan SCIENCE TEACHER Work Phone: [phone] [place], [place] 550[address]10-08-2025 08:54-0400 Body mass index (BMI) [Ratio]47.9 kg/s2DeektltdMaribeth Galvez SCIENCE TEACHER Work Phone: [phone] [place], [place] 550[address]10-08-2025 08:54-0400 Body xqorajkydtd60.7 [degF]Maribeth Castilloryan SCIENCE TEACHER Work Phone: [phone] [place], [place] [address]10-08-2025 08:54-0400 Body wuzoww590.92 kgMaribeth Galvez SCIENCE TEACHER Work Phone: [phone] [place], [place] 550[address]10-08-2025 08:54-0400 Diastolic blood dqurwdad24 mm[Hg]Maribeth Castilloryan SCIENCE TEACHER Work Phone: [phone] [place], [place] 550[address]10-08-2025 08:54-0400 Heart cfwe809 /minMaribeth Castilloryan SCIENCE TEACHER Work Phone: [phone] [place], [place] 550[address]10-08-2025 08:54-0400 SaO2% (BldA) [Mass fraction]97 %Maribeth Castilloryan FISHER Work Phone: [phone] [place], [place] 550[address]10-08-2025 08:54-0400 Systolic blood fjdqbuus145 mm[Hg]Maribeth Castilloryan FISHER Work Phone: [phone] [place], [place] 550[address]05-07-2025 13:28-0400 Body fhrtid787 cmEdellie Alba MD Work Phone: [facility] HospitalFfilzissbf67-02-8379 13:28-0400Body mass index (BMI) [Ratio]48.71 kg/f8OpamotEnrique Alba MD Work Phone: [facility] HospitalSftgffeggz59-96-2535 13:28-0400Body zuxbut336.74 kgEnrique Alba MD Work Phone: [facility] HospitalNfpcoejumu13-06-4752 13:28-0400Heart rate77 /min Enrique Alba MD Work Phone: [facility] HospitalPxodppjjna26-03-7122 13:28-6574PmJ3% (BldA) [Mass fraction]97 %Enrique Alba MD Work Phone: [phone] HospitalScwibyzqbc38-45-6461 15:24-0400Body vewulq469 cm Enrique Alba MD Work Phone: [phone] HospitalSpoeigpvfy73-58-3389 15:24-0400Body mass index (BMI) [Ratio]48.71 kg/z0GyqjfsEnrique Alba MD Work Phone: [phone] HospitalSwtkqapovv68-48-0699 15:24-0400Body sqheyp636.74 kgEnrique Alba MD Work Phone: [phone] HospitalNiuphsaoqm78-12-0575 15:24-0400Diastolic blood mtumxbyn81 mm[Hg]Enrique Alba MD Work Phone: [phone] HospitalZadwghxpvs94-56-0467 15:24-0400Heart rate90 /min Enrique Alba MD Work Phone: [phone] HospitalYeskgmqmkq26-35-2047 15:24-4004CbL6% (BldA) [Mass fraction]97 %Enrique Alba MD Work Phone: [phone] HospitalUhhhswebtb42-10-4798 15:24-0400Systolic blood easevjbh142 mm[Hg]Enrique Alba MD Work Phone: [facility] HospitalFcifyvmetf83-27-1036 18:15-0500Body temperature 97.2 [degF]Luis Eduardo Levine FULLING MILL OPERATOR Work Phone: [facility] HospitalZxtxxlcpyk47-08-6270 18:15-0500Diastolic blood ugpzcpep10 mm[Hg]Luis Eduardo Levine FULLING MILL OPERATOR Work Phone: [facility] HospitalEwutqjmavf26-90-9442 18:15-0500Heart rate88 /min Luis Eduardo Levine FULLING MILL OPERATOR Work Phone: NOPershing Memorial HospitalDlssbdguhz71-58-3667 18:15-4176BzB0% (BldA) [Mass fraction]98 %Luis Eduardo Levine FULLING MILL OPERATOR Work Phone: noPershing Memorial HospitalTpjbfzejkc41-10-2588 18:15-0500Systolic blood bdcrqafc137 mm[Hg]Luis Eduardo Levine FULLING MILL OPERATOR Work Phone: [facility] HospitalYseioysrgt02-31-5930 10:20-0500Body mass index (BMI) [Ratio]48.86 kg/k4CqayscsBeatriz Chavis FULLING MILL OPERATOR Work Phone: [facility] HospitalShtavtkglv94-23-4001 10:20-0500Body temperature 97.59 [degF]Beatriz Chavis FULLING MILL OPERATOR Work Phone: [facility] HospitalQrbdrplxbd97-54-7586 10:20-0500Body .1 kgBeatriz Chavis FULLING MILL OPERATOR Work Phone: [facility] HospitalNqhgiulbxl11-55-2307 10:20-0500Diastolic blood yusluyfb26 mm[Hg]Beatriz Chavis FULLING MILL OPERATOR Work Phone: [facility] HospitalAlukjzoujb74-57-1334 10:20-0500Heart uvfa779 /min Beatriz Chavis FULLING MILL OPERATOR Work Phone: [facility] HospitalOyinwjkiql10-91-2602 10:20-8459XhM7% (BldA) [Mass fraction]97 %Beatriz Chavis FULLING MILL OPERATOR Work Phone: [facility] HospitalWybwwcnzie83-70-4492 10:20-0500Systolic blood pdtcmadp451 mm[Hg]Beatriz Chavis FULLING MILL OPERATOR Work Phone: [facility] HospitalQltzrsnwev76-76-4987 13:48-0500Body luyqes053 cm Enrique Alba MD Work Phone: [facility] HospitalCkqbjvcvjt21-43-5897 13:48-0500Body mass index (BMI) [Ratio]36.31 kg/i2ByetfeEnrique Alba MD Work Phone: noPershing Memorial HospitalGyfnwtdbtr10-42-4933 13:48-0500Body lipzar39.99 kgEnrique Alba MD Work Phone: noPershing Memorial HospitalXtdlwvmqbr06-91-1850 13:48-0500Heart rate93 /min Enrique Alba MD Work Phone: [facility] HospitalIljxbmbgia92-83-9884 13:48-4986OcD5% (BldA) [Mass fraction]95 %Enrique Alba MD Work Phone: [phone] HospitalAhsjpwmsli59-47-0473 11:40-0500Body mass index (BMI) [Ratio]36.34 kg/m2Janey Janette PA Work Phone: [facility] HospitalLieesrlngz38-94-5196 11:40-0500Body vudaju61.04 kgAmy Janette PA Work Phone: [facility] HospitalAfvpxzbpwc95-10-4486 11:40-0500Diastolic blood afiwkhwl65 mm[Hg]Janey Savage PA Work Phone: [facility] HospitalWbrugxfblm44-94-0745 11:40-0500Systolic blood jboiknrb280 mm[Hg]Janey Savage PA Work Phone: [facility] HospitalHweytezkld98-60-6617 14:26-0500Body jjeoel387 cm Enrique Alba MD Work Phone: [phone] [place], [place] [address]Fimsgzigsc93-90-4544 14:26-0500Body mass index (BMI) [Ratio]49.6 kg/b6BdxfpeEnrique Alba MD Work Phone: [phone] [place], [place] [address]Kcldizzftt56-73-9507 14:26-0500Body uojehz108.01 kgEnrique Alba MD Work Phone: [phone] HospitalXfvyypesxq61-22-6983 15:35-0400Body zrciba677 cm Enrique Alba MD Work Phone: [phone] [place], [place] [address]Pnwvcfjumr74-14-9307 15:35-0400Body mass index (BMI) [Ratio]49.6 kg/q2XymjlsEnrique Alba MD Work Phone: [phone] [place], [place] [address]Gqtkhosbmp85-48-3442 15:35-0400Body ymjuuv941.01 kgEnrique Alba MD Work Phone: [phone] HospitalGllgfaltks31-72-8493 15:35-0400Diastolic blood ogpwoxia08 mm[Hg]Enrique Alba MD Work Phone: [phone] [place], [place] [address] 15:35-0400Heart rate97 /min Enrique Alba MD Work Phone: [phone] HospitalWjipdejmty84-63-5078 15:35-4513TyS2% (BldA) [Mass fraction]99 %Enrique Alba MD Work Phone: [phone] HospitalGhsdmksvnr95-95-6161 15:35-0400Systolic blood urtkjheo294 mm[Hg]Enrique Alba MD Work Phone: [phone] [address]Raevmsnuzt46-88-8032 16:24-0400Body wpteag325 cm Enrique Alba MD Work Phone: [phone] [address]Tyuczhzcpl68-30-4992 16:24-0400Body mass index (BMI) [Ratio]46.06 kg/f5CqwmsnEnrique Alba MD Work Phone: [phone] HospitalBcvwapjyre97-45-9392 16:24-0400Body urrqcu097.94 kgEnrique Alba MD Work Phone: [phone] [address]Ejuvgiwkzh33-84-9624 14:03-0400Body eoomis[address] Work Phone: [phone]'s Hospital for RehabilitationPqzbay37-88-2009 14:03-0400Body .[address] Work Phone: [phone]'s Hospital for RehabilitationWfwjqz61-36-8123 13:20-0400Body pdjpza241 cm Radha Hernandez MD Work Phone: [phone]07-05-2023 13:20-0400Body ljduqv053.2 kgRadha Hernandez MD Work Phone: [phone]04-06-2023 14:50-0400Diastolic blood oqzbqjfz09 mm[Hg]Mariajose Stallworth MD Work Phone: [phone]'s Hospital for RehabilitationPgcdrx82-91-0578 14:50-0400Heart xshs310 /minMariajose Stallworth MD Work Phone: [phone] Hagtks03-33-6480 14:50-0400Systolic blood jenpycla597 mm[Hg]Mariajose Stallworth MD Work Phone: cChildren's Hospital for RehabilitationZrfijq44-01-5770 14:00-0500Body taevdd986.02 Demetra Fuller Other [employer] Other 01-10-2023 14:00-0500Body mass index (BMI) [Ratio] 46.05 kg/j1Otiymmbynadine Chenack Other [employer] Other 01-10-2023 14:00-0500Body .94 kgLawrnadine Fuller Other [employer] Other 01-10-2023 14:00-0500Diastolic blood oduiyzvs639 mm[Hg]Ernie Fuller Other [employer] Other 01-10-2023 14:00-0500Systolic blood rrqxaoxo722 mm[Hg] Ernie Fuller Other [employer] Other 10-05-2022 10:45-0400Body .02 Demetra Fuller Other [employer] Other 10-05-2022 10:45-0400Body mass index (BMI) [Ratio] 47.29 kg/n6Mvugiqasdeanne Chenack Other [employer] Other 10-05-2022 10:45-0400Body iuxfyu343.11 kgLawrnadine Chenack Other [employer] Other Encounters Encounter DateEncounter TypeCare ProviderFacilityStart: 03-07-2025 End: 67-99-6047Mtxfszeii Result EncounterJaney RILEY Work Phone: noms External Department UnsolicitedStart: 03-07-2025 End: 64-13-7996Gjbfsnmgt Result EncounterJaney RILEY Work Phone: noms External Department UnsolicitedStart: 03-07-2025 End: 24-11-7412mxtdwzxhsgAYPXPHNCBMLDetwiler Memorial Hospital Start: 03-02-2025 End: 42-94-8177aitkctxragTntpvocl Rohrosalbazyoazaida FISHER Work Phone: [facility] Hospitaltart: 03-02-2025 End: 92-02-9295Ipphhdz encounter procedureMaribeth Galvez SCIENCE TEACHER [facility] Work Phone: Start: 75-01-2041wpezfrwsdnIXJDBMPDUSSSt. Mary's Medical Center, [place] Campustart: 02-02-2025 End: 34-82-8571ugotgnmtorQfckkcdb Rohrbzoyazaida SCIENCE TEACHER Work Phone: [facility] Work Phone: Start: 02-02-2025 End: 71-23-0894Bnvpmtw encounter procedureMaribeth Galvez SCIENCE TEACHER [facility] Work Phone: Start: 11-09-2024 End: 00-37-5933Uvtjutjjj encounterApril Rachel MANCHARY CI FM 100Comment on above: Care CoordinationStart: 11-04-2024 End: 72-56-4427Ijcoubrjr Result Jose Alba MD Work Phone: noms External Department UnsolicitedStart: 11-04-2024 End: 62-04-5640Diwkpcvnz Result Jose Alba MD Work Phone: noms External Department UnsolicitedStart: 10-30-2024 End: 37-78-7384Qisvzwshc Result EncounterGeneric External Data ProviderNOMS External Department UnsolicitedStart: 10-30-2024 End: 61-75-7214Uppyhowbg Result EncounterGeneric External Data ProviderNOMS External Department UnsolicitedStart: 10-27-2024 End: 71-25-9019Xiokekxod Result Jose Alba MD Work Phone: NOII External Department UnsolicitedStart: 10-27-2024 End: 04-05-5568Rutjyqbko Result Jose Alba MD Work Phone: NORY External Department UnsolicitedStart: 09-01-2024 End: 19-49-3350Hmyebm flowsNavarro Alba MD Work Phone: [facility] CI FM 100Start: 09-01-2024 End: 24-72-6744Daczln Ian Alba MD Work Phone: [facility] CI FM 100Start: 09-01-2024 End: 32-80-6929Wfghtv outpatient visit 25 minutesEnrique Alba MD Work Phone: NOUY CI FM 100Comment on above:Palpitations (Primary Dx); TachycardiaStart: 09-01-2024 End: 61-91-1303iituqucuyeUIMDKD J HEMEYERNot AvailableStart: 08-02-2024 End: 25-12-7620Qzaohe outpatient visit 25 minutesEnrique Alba MD Work Phone: [facility] CI FM 100Comment on above:Restless leg syndrome (Primary Dx); Other chronic pain; Insomnia due to other mental disorder; Recurrent major depressive disorder, in partial remission (HCC) (CMS/HCC); Primary hypertension (CMS/HCC); Mixed dyslipidemia (CMS/HCC); Pre-diabetes; Morbid obesity (CMS/HCC); Adult BMI 45.0-49.9 kg/sq m (CMS/HCC)Start: 08-02-2024 End: 33-48-7964fcejmijbghHFKDDE J HEMEYERNot AvailableStart: 08-02-2024 End: 94-89-8931Stouke Ian Alba MD Work Phone: [facility] CI FM 100Start: 08-02-2024 End: 85-40-0114Kottsb Ian Alba MD Work Phone: [facility] CI FM 100Start: 06-16-2024 End: 53-11-8761Aikicyrod encounterLindsmaximilian Levine FULLING MILL OPERATOR Work Phone: [facility] HSM FMStart: 06-15-2024 End: 44-80-6632Hkcwdr outpatient visit 25 minutesLindsmaximilian N Julián FULLING MILL OPERATOR Work Phone: NORG SWS UCComment on above:Left foot pain (Primary Dx); Strain of left foot, initial encounterStart: 06-15-2024 End: 36-98-4394qsyinueypjHCMAYLC N AUSTINNot AvailableStart: 05-09-2024 End: 79-73-3336EgeuwjBntkka J Hemeyer MD Work Phone: [facility] CI FM 100Comment on above:Pre-diabetesStart: 04-17-2024 End: 92-59-0903xbaqtiqiycPZYHPAX L DIDIONNot AvailableStart: 04-17-2024 End: 18-84-6257Xplbfu outpatient visit 25 minutesJessica L Didravi FULLING MILL OPERATOR Work Phone: noms SWS UCComment on above:Acute pain of left knee (Primary Dx)Start: 04-05-2024 End: 85-61-4141Ngquda flowsNavarro Alba MD Work Phone: [phone] CI FM 100Start: 04-05-2024 End: 87-10-3072Gasexp Ian Alba MD Work Phone: [facility] CI FM 100Start: 04-05-2024 End: 73-86-6153xheqqhamldOEIAUI J HEMEYERNot AvailableStart: 04-05-2024 End: 01-39-4797Elrwom outpatient visit 15 minutesEnrique Alba MD Work Phone: [facility] CI FM 100Comment on above:Acute non-recurrent pansinusitis (Primary Dx)Start: 03-31-2024 End: 63-20-6893Ofkcyi Fco Alba MD Work Phone: [facility] CI FM 100Comment on above:Pre-diabetesStart: 03-29-2024 End: 90-87-9193Shnhnv flowsoralJaney RILEY Work Phone: noms BCP OBStart: 03-29-2024 End: 81-94-9124Iudomr flowsoralJaney RILEY Work Phone: noms BCP OBStart: 03-29-2024 End: 39-55-7277Zxojxbybm Result EncounterGeneric External Data ProviderNOMS External Department UnsolicitedStart: 03-29-2024 End: 48-40-2881Sqtthfb encounter procedureJaney Janette PA Work Phone: [facility] Work Phone: Start: 03-29-2024 End: 61-11-5289Vspzoeqs preventive med est patient 40-64yrsAmy Janette RILEY Work Phone: noms BCP OBComment on above:Well woman exam with routine gynecological exam; Yeast infection of the skinStart: 03-29-2024 End: 16-03-8023gvjhankxrtCEG RAMEYNot AvailableStart: 03-13-2024 End: 39-01-6448UyjxvtQzehmzPiyush Alba MD Work Phone: [facility] CI FM 100Comment on above:Mixed dyslipidemia (CMS/HCC)Start: 03-12-2024 End: 54-52-5249VjcuvnWdrfvsPiyush Alba MD Work Phone: [facility] CI FM 100Comment on above:Mixed dyslipidemia (CMS/HCC)Start: 03-11-2024 End: 19-28-3061Ygfglb outpatient visit 25 minutesEdellie Alba MD Work Phone: [facility] CI FM 100Comment on above:Pre-diabetes (Primary Dx); Restless leg syndrome; Mixed dyslipidemia (CMS/HCC)Start: 03-11-2024 End: 79-97-4086ufehyzuslaGHZYRDRochelle Lares AvailableStart: 03-11-2024 End: 77-61-8077Fodden flowsheetEnrique Alba MD Work Phone: [facility] CI FM 100Start: 03-11-2024 End: 06-46-1895Fpxbwy flowsNavarro Alba MD Work Phone: NOJC CI FM 100Start: 03-05-2024 End: 50-38-0556Vdjgsjaol Result EncounterEdellie Alba MD Work Phone: noms External Department UnsolicitedStart: 03-05-2024 End: 55-25-1961Lkeestlpt Result EncounterEdellie Alba MD Work Phone: noms External Department UnsolicitedStart: 02-25-2024 End: 14-87-9371Gtmelon encounter statusEnrique Alba MD Work Phone: [facility] Work Phone: Start: 02-25-2024 End: 29-88-6002Iestkgjf preventive med est patient 40-64yrsEdellie Alba MD Work Phone: NOXW CI FM 100Comment on above:Encounter for wellness [...] Screening mammogram for breast cancerStart: 02-25-2024 End: 39-50-3738hnfexkhcpfJCTOYK J HEMEYERNot AvailableStart: 02-25-2024 End: 33-30-5427Kqkpzl flowsheetEnrique Alba MD Work Phone: noms CI FM 100Start: 02-25-2024 End: 92-63-5499Wywjhk flowsNavarro Alba MD Work Phone: NOKZ CI FM 100Start: 12-25-2023 End: 74-40-0155Fjrtpqbau encounterEdellie Alba MD Work Phone: [facility] CI FM 100Start: 12-16-2023 End: 51-47-7810ldlklxhmwgZFAOJU J HEMEYERNot AvailableStart: 12-16-2023 End: 59-45-7621Fdyuly outpatient visit 15 minutesEdellie Alba MD Work Phone: [facility] CI FM 100Comment on above:Insomnia due to other mental disorder; Recurrent major depressive disorder, in partial remission (HCC) (CMS/HCC); Morbid obesity (CMS/HCC); Adult BMI 45.0-49.9 kg/sq m (CMS/HCC)Start: 12-05-2022 End: 99-67-0693lbvnttsmrdKbrrfaeua M Patton RD Work Phone: Nutrition TherapyComment on above:Fatty liverStart: 12-05-2022 End: 41-86-5838Nhcyokzzhbww consultation with patientTaylor Gee RD Work Phone: MIGUEL MATA FHCStart: 10-30-2022 End: 42-61-9803smeavcfqgrHAQCFVBertram HERNANDEZFacility:[facility] Start: 10-30-2022 End: 33-81-2475Iclrnsr encounter Gopal Hernandez MD Work Phone: GastroenterologyComment on above:Fatty liver (Primary Dx); Class 3 severe obesity due to excess calories in adult, unspecified BMI, unspecified whether serious comorbidity present (HCC)Start: 08-01-2022 End: 75-02-1469tmelrtqgueOUMLBM S PERHALAFacility:[facility] Start: 08-01-2022 End: 34-16-3319Oyaseuv encounter Giorgi Stallworth MD Work Phone: RheumatologyComment on above:Erosive osteoarthritis of both hands (Primary Dx); Primary osteoarthritis involving multiple joints; NSAID long-term useStart: 06-17-2022 End: 86-24-6730bwbhkhvcorFijayu Cundiff Other [facility] [employer] Other Start: 03-91-7974Wjtijkusx Neptaliwilli ChavezTheodora Referral CoordinatorStart: 05-07-2022 End: 49-77-4816dxdxkezsqtVoaqavxl McCormack Other noQuantiaMD [employer] Other Start: 61-03-0243Zkutds outpatient visit 25 minutes Ernie Monson GastroenterologyStart: 02-20-2022 End: 67-36-2833asniovjnexUcwgde J HemeyerFacility:[facility] Centertart: 01-30-2022 End: 75-29-8090yvqskctuccIvzdxpvw McCormack Other [facility] [employer] Other Start: 52-76-7335Jvfgvf outpatient new 45 minutes Ernie Monson GastroenterologyStart: 11-05-2021 End: 09-74-4173wernpsehxiPO OSCAR KARASIKFacility:Q3Ospyo: 11-01-2021 End: 26-15-0361fmvfnirxxfBX EDWARD HEMEYERFacility:K8Ajias: 10-16-2021 End: 18-87-6574npuuklmimxYF EDWARD HEMEYERFacility:C1Ewytj: 10-11-2021 End: 00-85-1497lkskgsqhfxHQ EDWARD HEMEYERFacility:W5Pftud: 03-20-2021 End: 35-20-5616expkcaoxysON EDWARD HEMEYERFacility:H1 Procedures DateProcedureProcedure DetailPerforming ClinicianStart: 20-32-4387RB TOMOSYNTHESIS SCREENING Eula RILEY Work Phone: Start: 82-35-4583SzgpnuevqhvZcx Ramey PA Work Phone: Start: 32-73-0391SV KIMBERLYN PERF SPECT REST Magalys Alba MD Work Phone: Start: 60-55-9894CZA HEMOGLOBIN Q3EPainjio External Data ProviderStart: 03-06-1196PQN CBC WITH AUTO Josefina Alba MD Work Phone: Start: 55-32-8926Tmnokcmong examination knee 3 views Beatriz David Cahvis [employer] Work Phone: Start: 89-29-7225BNR,APTIMA HPV,AGE GDLNJaney RILEY Work Phone: Start: 85-32-5140Xjkdablgelj observation [Identifier] in Cervix by Cyto stainEdellie Alba MD Work Phone: Start: 22-65-6236CZ TOMOSYNTHESIS SCREENING BIEnrique Alba MD Work Phone: Start: 05-94-9388HF DEXA AXIAL SKELETONEnrique Alba MD Work Phone: Start: 67-24-3677HVQ LIPID PROFILE (FASTING)Enrique Alba MD Work Phone: Start: 38-12-3614ZAX CMP (CMP) (FOR REMOTE [facility] USE) Enrique Alba MD Work Phone: Start: 72-68-7574BcahrnacvbaJygvtw Hemeyer MD Work Phone: Start: 03-81-7995Kazmvlbnhyx observation [Identifier] in Cervix by Cyto Davina RILEY Work Phone: Start: 87-90-5271Ksslofx of operative procedure on kneeStatus post bilateral knee replacementsEnrique Alba MD Work Phone: Start: 00-59-0565SpvnkgluvfgOqoyvq Hemeyer MD Work Phone: Start: 06-81-9579OioedmsvciqXyntmhqov [address] Work Phone: Plan of Treatment DateCare ActivityDetailAuthorStart: 63-85-1539Ommogcvje for malignant neoplasm of cervixNOMS HealthcareStart: 44-54-9878Hjsrzqkko for malignant neoplasm of colonNOMS HealthcareStart: 91-85-1115Zfwxpfvhc for malignant neoplasm of cervix [facility] HealthcareStart: 04-04-2025 End: 99-75-7554Fnztkrm encounter procedureNOMS BCP OBStart: 09-30-1662Zbhqvcrfx for malignant neoplasm of breastMammogramNOWA HealthcareStart: 09-75-5206VMNCH- 19 Vaccine ( season)COVID-19 Vaccine ( season)[facility]OMS HealthcareStart: 05-61-1312Keoamhisz vaccinationInfluenza Vaccine (#1)NOM HealthcareStart: 09-01-2024 End: 11-31-4210Khwibm monitor studyHolter monitor Imaging Routine Palpitations Tachycardia Expected: 09/01/2024 (Approximate), Expires: 09/01/2025[facility] Work Phone: Comment on above:Expected: 09/01/2024 (Approximate), Expires: 09/01/2025Start: 09-01-2024 End: 12-81-4530Cardefq encounter lniqojnbr84/07/2025 1:45 PM EDT Office Visit [facility] [address] [facility] [address] [place] [address] Enrique Alba MD [address] [place] [address] ArrivedNOMS CI FM 100Comment on above: ArrivedStart: 08-02-2024 End: 77-28-2731Crzrjpa encounter xcygsnuyi80/07/2025 3:30 PM EDT Office Visit [facility] [address] [facility] [address] [place] [address] Enrique Alba MD [address] [place] [address] (Fax) Primary hypertension (CMS/HCC); Mixed dyslipidemia (CMS/HCC); [...] BMI 45.0-49.9 kg/sq m (CMS/HCC)Start: 08-02-2024 End: 96-92-1160RIP W Auto Differential panel - BloodCBC and differential Lab Routine Restless leg syndrome Expected: 08/02/2024 (Approximate), Expires: 08/02/2025[facility] Work Phone: Comment on above:Expected: 08/02/2024 (Approximate), Expires: 08/02/2025Start: 08-02-2024 End: 38-39-6118Nrvn and Iron binding capacity panel - Serum or PlasmaIron and TIBC Lab Routine Restless leg syndrome Expected: 08/02/2024 (Approximate), Expires: 08/02/2025NOWA HealthcareComment on above:Expected: 08/02/2024 (Approximate), Expires: 08/02/2025Start: 03-29-2024 End: 16-53-9858Ryvwtvi encounter procedureNOMS BCP OBComment on above:Arrived Start: 81-50-5434Whwvskadx for malignant neoplasm of cervixNOWA HealthcareStart: 02-26-2024 End: 85-72-6482Psmrxxerwbjzi metabolic 2000 panel - Serum or PlasmaComprehensive metabolic panel Lab Routine Glucose intolerance (impaired glucose tolerance) Primary hypertension (CMS/HCC) Expected: 02/26/2024 (Approximate), Expires: 02/25/2025[facility] Work Phone: Comment on above:Expected: 02/26/2024 (Approximate), Expires: 02/25/2025Start: 02-26-2024 End: 22-11-9356SYH Breast - bilateral screeningBilateral screening mammogram with tomosynthesis Imaging Routine Screening mammogram for breast cancer Expected: 02/26/2024 (Approximate), Expires: 04/27/2025NOWA HealthcareComment on above:Expected: 02/26/2024 (Approximate), Expires: 04/27/2025Start: 02-26-2024 End: 84-48-7615CLJ Skeletal system Views for bone densityDEXA bone density Imaging Routine Menopausal and female climacteric states Osteoporosis screening Encounter for follow-up examination after completed treatment for conditions other than malignant neoplasm Expected: 02/26/2024 (Approximate), Expires: 02/25/2025NOMS HealthcareComment on above:Expected: 02/26/2024 (Approximate), Expires: 02/25/2025Start: 02-26-2024 End: 38-53-6632Kwxmd 1996 panel - Serum or PlasmaLipid panel Lab Routine Mixed hyperlipidemia (CMS/HCC) Expected: 02/26/2024 (Approximate), Expires:02/25/2025 NOMS HealthcareComment on above:Expected: 02/26/2024 (Approximate), Expires: 02/25/2025Start: 02-25-2024 End: 23-72-1582Wgqhdus encounter mjfcnentf63/30/2024 3:30 PM EDT Office Visit [facility] [address] [facility] [address] [place] [address] Enrique Alba MD [address] [facility] 100 [place] [address] Encounter for wellness examination in adult; Advance directive discussedwith patient; Morbid obesity (CMS/HCC); Adult BMI 45.0-49.9 kg/sq m (CMS/HCC)[facility] CI FM 100Comment on above:Encounter for wellness examination in adult; Advance directive discussed with patient; Morbid obesity (CMS/HCC); Adult BMI 45.0-49.9 kg/sq m (CMS/HCC)Start: 70-66-6531Zhwnmqepa vaccination Influenza Vaccine (#1)[facility] HealthcareStart: 14-21-1786Isebeqjap vaccination INFLUENZA (#1)[facility] Hospitaltart: 75-41-5866Ncfqhhgrr for malignant neoplasm of breastMammogramNOMS HealthcareStart: 10-30-2022 End: 50-81-0131ZBFSWX SCREEN WITH REFLEXCELIAC SCREEN WITH REFLEX Lab Routine Fatty liver Expected: 10/30/2022, Expires: 12/30/2022[facility] Work Phone: Comment on above:Expected: 10/30/2022, Expires: 12/30/2022Start: 10-30-2022 End: 34-37-6287Mfbrxxixyhohy metabolic 2000 panel - Serum or PlasmaCOMP METABOLIC PANEL Lab Routine Fatty liver Expected: 10/30/2022, Expires: 12/30/2022[facility] Work Phone: Comment on above:Expected: 10/30/2022, Expires: 12/30/2022Start: 10-30-2022 End: 75-91-7933KWXZRAJQX A ANTIBODY, IGGHEPATITIS A ANTIBODY, IGG Lab Routine Fatty liver Expected: 10/30/2022, Expires: 12/30/2022[facility] Work Phone: Comment on above:Expected: 10/30/2022, Expires: 12/30/2022Start: 61-95-5210EYEHZTHFEN ASSESSMENTDEPRESSION ASSESSMENTProMedica Fostoria Community Hospitaltart: 33-79-4645QofderxygbvMXDTUAMZCZgywauzdz ClinicStart: 2020 SHINGRIX VACCINE (1 of 2)SHINGRIX VACCINE (1 of 2)[facility] Hospitaltart: 06-40-2155AHQZNOPZ SCREENDIABETES SCREENProMedica Fostoria Community Hospitaltart: 09-25-2015 COLOGUARD (FIT-DNA)COLOGUARD (FIT-DNA)[facility] Hospitaltart: 09-25-2015 ColonoscopyCOLONOSCOPYProMedica Fostoria Community Hospitaltart: 36-64-7000YPQBKRCXVC CANCER SCREENINGCOLORECTAL CANCER SCREENINGProMedica Fostoria Community Hospitaltart: 68-15-4043UV COLONOGRAPHYCT COLONOGRAPHYProMedica Fostoria Community Hospitaltart: 02-97-0794PLLRI OCCULT BLOOD FECAL OCCULT BLOODProMedica Fostoria Community Hospitaltart: 72-20-7499EMSBX SCREENLIPID SCREEN [facility]tart: 27-96-3727HECFLBASYDCCNXTAJTUTYRZDQBDkxslbsle Clinic Start: 58-03-0983RxhxxwubficGSVZOZSTRYewhdbens ClinicStart: 73-24-6556XCI TESTINGHPV TESTINGProMedica Fostoria Community Hospitaltart: 44-14-2040PRH TESTINGPAP TESTING [facility]tart: 46-98-1683Wmsrecchn for malignant neoplasm of cervixPap SmearKANE COUNTY HUMAN RESOURCE SSD HealthcareStart: 21-98-5170Oztbnmexy A Vaccines (1 of 2 - Risk 2-dose series)Hepatitis A Vaccines (1 of 2 - Risk 2-dose series)[facility] HospitalStart: 42-10-4328Phmsndfoe B Vaccines (1 of 3 - 19+ 3-dose series)Hepatitis B Vaccines (1 of 3 - 19+ 3-dose series)[facility] HealthcareStart: 27-81-1155Xajca microalbumin profileDTAP,TDAP,TD (1 - Tdap)[facility] Hospitaltart: 24-28-9536RGAPEQOQH C SCREENINGHEPATITIS C SCREENINGProMedica Fostoria Community Hospitaltart: 72-15-4057OXY SCREENINGHIV SCREENINGProMedica Fostoria Community Hospitaltart: 85-10-8073ICwQ/Tdap/Td Vaccines (1 - Tdap) DTaP/Tdap/Td Vaccines (1 - Tdap)[facility] HospitalStart: 26-25-4177BWP Vaccines (1 of 1 - Standard series)MMR Vaccines (1 of 1 - Standard series)[facility] Start: 66-02-5022HUBUISXEK B (1 of 3 - 3-dose series)HEPATITIS B (1 of 3 - 3- dose series)[facility] Hospitaltart: 93-86-6931Swwmsyvse for malignant neoplasm of colonKANE COUNTY HUMAN RESOURCE SSD HealthcarePatient EducationLow back pain in adultsOhiohealth Shelby Hospital Work Phone: THIN PREP TIS PAP AND HR HPV DNATHIN PREP TIS PAP AND HR HPV DNA Pathology and Cytology Routine Well woman exam with routine gynecol ogical exam Ordered: 03/29/2024[facility] Work Phone: comment on above:Ordered: 4CNation[facility] Immunizations Immunization DateImmunizationNotesCare YqpmntluPyidacpe43-70-6431qbostuior, seasonal, injectable, preservative Bull Galvez APRN Work Phone: [facility]09-09-2024influenza, injectable, felixin francesca canine kidney, preservative Jimenez Alba MD Work Phone: [facility] HospitalUqolmllcum91-54-7042nxleqdtjt virus vaccine, unspecified formulationEnrique Alba MD Work Phone: [phone] [place], [place] [address]Swvokfozld51-31-5811Jxzjfcdrp, injectable, Madin Morehouse Canine Kidney, preservative free, quadrivalentEnrique Alba MD Work Phone: [phone] [place], [place] [address]Mmorydncww16-13-4470zsgvwmckd virus vaccine, unspecified formulationEnrique Alba MD Work Phone: [phone] [place], [place] [address]Omnvbavwrn58-65-2704Oelrzxdzq, injectable, Madin Francesca Canine Kidney, preservative free, quadrivalentEnrique Alba MD Work Phone: [phone] [place], [place] [address]Xdamxjgnfq46-63-3026YCFB-HIR-1 (COVID-19) vaccine, mRNA, spike protein, LNP, bivalent, preservative free, 30 mcg/0.3 mL dose, joyce-sucrose formulationEnrique Alba MD Work Phone: [phone] [place], [place] [address]Yevjzucsgt19-96-6868iuajiw vaccine recombinant Enrique Alba MD Work Phone: [phone] [place], [place] [address]Gezugykumt48-37-1663iwtqbypek, injectable, quadrivalent, preservative freeEnrique Alba MD Work Phone: [phone] [place], [place] [address]Ltwomzfqri83-77-0005bwjosc vaccine recombinant Enrique Alba MD Work Phone: [phone] [place], [place] [address]Eswornpxcn48-91-1056rebvhphvi, injectable, quadrivalent, preservative freeEnrique Alba MD Work Phone: [phone] [place], [place] [address]Uuavmnifhw73-63-6844dldqziezp, high dose seasonal, preservative-freeEnrique Alba MD Work Phone: [phone] [place], [place] [address]Xpncakxatu47-36-5611vttnmlevd, injectable, quadrivalent, preservative freeEnrique Alba MD Work Phone: [phone] [place], [place] [address]Laaimoxmoc65-97-4642Hvcvvmuah, injectable, Madin Morehouse Canine Kidney, preservative free, quadrivalentEnrique Alba MD Work Phone: [phone] [place], [place] [address]Fqyowsxwdz91-68-0324Tljwzalgv, injectable, Madin Francesca Canine Kidney, quadrivalent with preservativeEnrique Alba MD Work Phone: [facility] HospitalEbgfrgikjm28-36-0224mfzxusisz, injectable, quadrivalent, preservative freeEnrique Alba MD Work Phone: [facility] HospitalSyvusfeldr56-46-6478ukuzdqneg, injectable, quadrivalent, preservative freeEnrique Alba MD Work Phone: [facility] HospitalKpffscewcu69-65-4509wkejgulop, seasonal, injectable, preservative freeEdellie Alba MD Work Phone: [facility] HospitalSpwrjwkxoe00-33-1052vojknarvm, injectable, quadrivalent, preservative freeEdellie Alba MD Work Phone: [facility] HospitalTehvsyuyqy56-38-1439gdfwkegaa, seasonal, injectable, preservative freeEdellie Alba MD Work Phone: [facility] HospitalPpwmrjccqx15-91-2056ghlnounic, injectable, quadrivalent, preservative freeEdellie Alba MD Work Phone: [facility] HospitalJbgqlggbnh53-08-1332vqbqpgsee virus vaccine, whole virusEdellie Alba MD Work Phone: [facility] Payers DatePayer CategoryPayerPolicy [id number] [employer] [id number] 2022-[facility] [phone] [address] [address] [place] [id number] 78-22-4635Mswpltb Health [id number].3.703418.315 [id number] 2.16.840.7.113023.11239864-12-1040Ilie-ciz23-83-4708 [id number] 2.840.1.170224.3.57[id number] 2.840.1.930555.3.57[id number] 2.840.1.246589.3.57[id number] 2.840.1.579429.3.57[id number] 2.0.1.769933.3.57[id number] 2.0.1.477400.3.57[id number] 2.0.1.807551.3.57[id number] 2.0.1.167658.3.57[id number] 2..1.155830.3.57[id number] 2..1.497514.3.57[id number] 2.0.1.122102.3.57[id number] 2..1.319017.3.57[id number] 2.0.1.547473.3.57[id number] 2.0.1.377833.3.57[id number] 2.0.1.154969.3.57[id number] 2.16.840.1.623721.3.579.[id number] 2.16.840.1.060043.3.579.2.531 Social History DateTypeDetailFacilityUnknown if ever smokedNort Conferize Other Start: 10-30-2022 End: 93-50-1359Glr Assigned At BirthPro[facility] Hospitaltart: 10-16-2012 End: 44-29-0400Toqdtyo smoking status NHISNever smoked tobaccoCleveland Clinic South Pointe Hospital Work Phone: Start: 10-16-2012 End: 30-03-5097Xudquah use and exposureSmokeless tobacco non-userCleveland Clinic South Pointe Hospital Work Phone: Start: 11-08-2019 End: 87-13-6988Hqqbocf intakeCurrent non-drinker of alcohol (finding)[facility] Hospitaltart: 49-00-3088Lkr Assigned At BirthNot on fileProMedica Fostoria Community Hospitaltart: 10-30-2022 End: 04-98-1647Ccghhmf of Social functionProMedica Fostoria Community Hospitaltart: 03-17-5725Qrmcp Depression Screening Zoimukyemu8Vtuxjwhrk ClinicStart: 12-16-2023 End: 74-84-2319Bupvyjzlm beverage intakeLifetime non-drinker (finding)[facility] HealthcareWithin the last [...] got money to buy more.Never trueNOMS HealthcareStart: 26-09-3698Xqxypkxkl65XRZJ HealthcareStart: 11-13-2022 Alcohol CommentCaffeine intake: 2-3 cups per dayKANE COUNTY HUMAN RESOURCE SSD HealthcareSexFemale (finding)[facility] Centertart: 72-96-5640Gsw Assigned At [facility] Medical Equipment Procedure CodeEquipment CodeEquipment Original TextEquipment IdentifierDates Simplex P Bone Cement Radiopaque Full Dose Individual Pack - [id number] Start: 95-20-2868Cbydxub P Bone Cement Radiopaque Full Dose Individual Pack - [id number]: 28-99-1844Sgpf Fem 4 Lt Kn Cr Ivan Trthln - [id number]: 69-84-0663Rcw Tib 3 9mm Kn X3 Cr Trthln - [id number] Start: 98-89-4206Vfrk Pat 10mm 32mm Asym Trthln - [id number]: 99-98-6087Ajgp Pat 10mm 32mm Asym Trthln - [id number]: 03-30-2013 Baseplt Tib Trthln 4 Prim - [id number]: 62-95-0541Qjlitqz Tib Trthln 3 Prim - [id number]: 03-30-2013 Functional Status XqvuBcjeamrsklCaazjnBftrswlh84-88-9027Ewuxaze Health Questionnaire 2 item (PHQ- 2) [Reported][facility] Clinical Notes 01-30-2022 to 03-07-2025 Note Date & SjstOpkxUlktlxqa13-57-2143 NoteSubjective Patient ID: Naima Hernandez is a 54 y.o. female who presents for Follow-up (Patient is here today for a follow up stress test and Echo. Patient denies chest pain,edema. Patient complains of SOB/DUARTE, occasional palpitations/racing heart, lightheaded/dizziness with position changes), Hypertension, Hyperlipidemia, Shortness of Breath (SOB/DUARTE with going up and downstairs. ), Palpitations (Palpitations/racing hearts), and Dizziness (Dizziness/lightheaded/). Had J Carlos protocol stress test this morning. Able to exercise into Stage 7 however, she started having significant, symptomatic exercise-induced PVCs in Stage 5 including bigeminy. This reproduces her symptoms of palpitations and racing heart beats when climbing stairs to her daughter's dorm room at [employer]. Hypertension Associated symptoms include palpitations and shortness of breath. Hyperlipidemia Associated symptoms include shortness of breath. Shortness of Breath Palpitations Associated symptoms include dizziness and shortness of breath. Dizziness Review of Systems Respiratory: Positive for shortness of breath. Cardiovascular: Positive for palpitations. Neurological: Positive for dizziness. Objective Visit Vitals BP 139/88 (BP Location: Left arm, Patient Position: Sitting) Pulse 100 Physical Exam Constitutional: Appearance: Normal appearance. She is obese. Cardiovascular: Comments: Normal radial pulse L Skin: General: Skin is warm and dry. Neurological: Mental Status: She is alert. Psychiatric: Mood and Affect: Mood normal. Behavior: Behavior normal. Thought Content: Thought content normal. Judgment: Judgment normal. Assessment/Plan Mrs. Hernandez has significant exercise-induced ventricular ectopy in a pattern of bigeminy. I have discussed with her cardiac catheterization to assess for coronary artery disease which, in her age group, is the most common cause of exercise ventricular arrythmias. I discussed with her the expected risks of cath including bleeding, , AK, vascular injury, etc., she voices understanding. Plan L radial access to limit bleeding and other risks. Diagnosis Plan 1. Tachycardia 2. Ventricular ectopy No orders of the defined types were placed in this encounter. No results found for this or any previous visit (from the past 36 hours). No follow-ups on file.[facility]10-22-2025 Note Subjective Patient ID: Naima Hernandez is a 54 [...] Diabetes mellitus type II, non insulin dependent ([facility]) lisinopril 20 mg tablet Ambulatory [...] the past 36 hours). No follow-ups on file.[facility]10-08-2025 Evaluation note* Diagnosis Onset Date Resolution Status Admit Date Depression with anxiety acuteOctober 2024 8:46amHypercholesterolemiaacuteOctober 2024 8:46am Low back painacuteOctober 2024 8:46amRestless legacuteOctober 2024 8:46amType 2 diabetes mellitusacuteOctober 2024 8:46amAnxietyacuteNovember 2024 8:20amType 2 diabetes mellitusacuteNovember 2024 8:20am [facility] Work Phone: 1(449) 407-537907-15-2025 Telephone encounter Note* Telephone Encounter - Enrique Alba MD - 11/09/2024 1:48 PM EDT I did review the patient's previous Holter monitor and both sections of her stress testing. I did a quick search on shortened NH interval during recovery phase only for Lexiscan and really could not find any significant information. Most of the problem seems to be with prolonged NH intervals. I did call the patient and [...] hips bother her and I refilled that. [facility] HospitalBlzszhpxgg69-66-8692 Miscellaneous Notes* Telephone Encounter - Enrique Alba MD - 11/09/2024 1:48 PM EDT I did review the patient's previous Holter monitor and both sections of her stress testing. I did a quick search on shortened NH interval during recovery phase only for Lexiscan and really could not find any significant information. Most of the problem seems to be with prolonged NH intervals. I did call the patient and [...] refilled that. * Telephone Encounter - Imelda Ramos MA - 11/09/2024 1:19 PM EDT Copied from : [place], July, it is Mary Gabriel. I received a notification from [employer] that the rest of my nuclear stress test results were in looked like it was a fax page. I could not download anything, but I did notice it came across as abnormal and I was just calling I did not know if the dr. would want to see me. We are [...] let me know, I would appreciate it. [phone]. , July. documented in this encounterScotland County Memorial HospitalMnlhydchgb79-50-2262 Telephone encounter Note* Telephone Encounter - Imelda Ramos MA - 11/09/2024 1:19 PM EDT Copied from : [place], July, it is Mary Gabriel. I received a notification from mg that [...] let me know, I would appreciate it. [phone]. July. [facility] HospitalRnlfxkjlxz72-66-6013 History of Present illness Narrative* Enrique Alba [...] problem that has been going on since [facility] No cause is established today. The [...] Future - Holter monitor documented in this encounterScotland County Memorial HospitalEqdldifufq56-31-3027 History of Present illness Narrative* Enrique Alba [...] to worry about her illness. Permission giving. Aurelio for right now we can sort of [...] Defines a morbid obesity documented in this encounterScotland County Memorial HospitalZhamjhhoqm42-90-0153 Miscellaneous Notes* Telephone Encounter - Luis Eduardo [...] plantar calcaneal enthesophyte documented in this encounterNOMS Wqmstovvdy55-44-8680 Telephone encounter Note* Telephone Encounter - Luis [...] midfoot arthrosis Small plantar calcaneal enthesophyte [facility] Vxeyrldtid75-37-8338 History of Present illness Narrative* Luis Eduardo [...] enthesophyte See telephone encounter. documented in this encounterScotland County Memorial HospitalNxwhaaureo10-13-2895 History of Present illness Narrative* Beatriz Chavis [...] improve. Beatriz Chavis NP documented in this encounterScotland County Memorial HospitalUqdphjbziq64-16-6622 History of Present illness Narrative* Enrique Alba [...] Dispense:7 tablet; Refill: 0 documented in this encounterScotland County Memorial HospitalQhzzgezssm61-91-6272 History of Present illness Narrative* OSVALDO Wilks [...] glucose tolerance) 09/17/2022 Hepatitis 09/17/2022 HTN (hypertension) ([facility]) 09/17/2022 Insomnia due to other mental disorder 09/17/2022 Mixed dyslipidemia ([facility]) 09/17/2022 Morbid obesity ([facility]) 09/17/2022 Obstructive sleep apnea hypopnea, moderate 09/17/2022 Osteoarthritis of joint of toe of right foot 09/17/2022 Other chronic pain 09/17/2022 Overactive bladder 09/17/2022 Primary osteoarthritis, right hand 09/17/2022 Recurrent major depressive disorder, in partial remission (HCC) ([facility]) 09/17/2022 Sleep disorder 09/17/2022 Status post bilateral knee replacements 09/17/2022 Enuresis 09/17/2022 Urinary incontinence 09/17/2022 Adult BMI 45.0-49.9 kg/sq m ([facility]/HCC) 05/14/2023 Restless leg syndrome 08/14/2023 Pre-diabetes 03/20/2024 [...] History: Procedure Laterality Date SECTION, LOW TRANSVERSE 2005 CHOLECYSTECTOMY CYST REMOVAL chest DILATION AND CURETTAGE [...] nursing note reviewed. Exam conducted with a candy butcher present. Vitals: Estimated body mass index is [...] behalf of: OSVALDO Wilks documented in this encounterScotland County Memorial HospitalGjqydlbsps64-96-5128 History of Present illness Narrative* Enrique Alba [...] also review treatment options. Please see labs date2023. Review of Systems Constitutional: Negative for chills [...] which is the exact opposite of [facility] when I was prescribing. A new prescription for the 160 mg was sent. documented in this encounterScotland County Memorial HospitalQisnyiomsr87-56-6846 History of Present illness Narrative* Enrique Alba MD - 02/25/2024 3:30 PM EDT Images from the original note were not included. Patient ID: Naima Hernandez is a 53 y.o. female who presents for: See Scanned Wellness packet Advance Directive/Living Will: No Health Care Power of Senior Scientist: No Review of Systems Constitutional: Positive for [...] through a living will, durable power of cemetery laborer for healthcare, or other advanced directives. We [...] Future - Lipid panel 7. Primary hypertension ([facility]/HCC) Chronic problem, stable, to goal - Comprehensive [...] mammogram with tomosynthesis; Future documented in this encounterNOPershing Memorial [id number] Telephone encounter Note* Telephone Encounter - Enrique Alba MD - 12/25/2023 11:16 AM EDT Rx sent [facility] [id number] Miscellaneous Notes* Telephone Encounter - Enrique Alba MD - 12/25/2023 11:16 AM EDT Rx sent documented in this encounterScotland County Memorial HospitalOkubnddbpo25-24-7259 History of Present illness Narrative* Enrique Alba [...] 45.0-49.9 kg/sq m (CMS/HCC) documented in this encounterScotland County Memorial HospitalTahmjvhfwq72-80-1989 NoteHNO ID: [id number] Author: Taylor Gee RD Service: ? Author Type: Registered Dietitian Type: Progress Notes Filed: 12/05/2022 2:43 PM Note Text: [facility] Nutrition Therapy: Virtual Consult - Initial Assessment I have communicated my name and active licensure. The patient?s identity and physical location were verified at the time of this visit. Either the patient or their legal patient account representative has been informed of the risks [...] cheese or fruit or none Lunch - 35c-4ca-jchrq w/ chicken/ham, makenzie, onion, pepper FF ranch [...] Fullerming DATE: 12/05/2022 TIME: 2:05 PM PAGER: [phone] O[facility]len[facility]08-10-[facility] History of Present illness Narrative* Taylor Gee RD - 12/05/2022 2:02 PM EDT [facility] Nutrition Therapy: Virtual Consult - Initial Assessment I have communicated my name and active licensure. The patient s identity and physical location wereverified at the time of this visit. Either the patient or their legal patient account representative has been informed of the risks [...] Orgain Clean Protein, Slimfast High Protein, Atkins, [employer] Core Power, [employer] Nutrition Plan 6. Choose lean protein sources [...] cheese or fruit or none Lunch - 90j-4co-hizsr w/ chicken/ham, makenzie, onion, pepper FF ranch [...] Hernandez DATE: 12/05/2022 TIME: 2:05 PM PAGER: [phone] documented in this encounterC[facility] NoteHNO ID: [id number] Author: Radha Hernandez MD Service: ? Author Type: Physician Type: Progress Notes Filed: 10/30/2022 2:34 PM Note Text: Hepatology Clinic Mindy Richey MD, FACG, FAASLD Director, [facility] Hepatology [facility] Consult Requested By: Mike Salgado [address] [facility] [address] for evaluation of her fatty liver .. [...] distress HEENT negative no icterus Lungs CTA enmnauel COR rrm- Abdomen benign Extremities no edema no spiders no palmar erythema CONVALESCENT SITTER no asterixis , a+0 X3 Glucose Date [...] Radha Richey MD [facility] Thank you again for your kind referral. Please feel free to contact me if I can be of further assistance to you {I spent 45 minutes in the visit, with more than 50% of the total axxs-fb-hdde time of the visit in counseling / coordination of care.[facility]07-05-2023 History of Present illness Narrative* Radha Hernandez MD - 10/30/2022 1:30 PM EDT Images from the original note were not included. Hepatology Clinic Mindy Richey MD, FACG, FAASLD Director, [facility] Hepatology [facility] Consult Requested By: Mike Salgado [address] [id number] for evaluation of her fatty liver .. [...] no edema no spiders no palmar erythema CONVALESCENT SITTER no asterixis , a+0 X3 Glucose Date [...] Radha Richey MD [facility] Thank you again for your kind referral. Please feel free to contact me if I can be of further assistance to you {I spent 45 minutes in the visit, with more than 50% of the total fbam-us-wkya time of the visit incounseling / coordination of care. documented in this encounterCleveland [facility]04-[facility]-2023 NoteHNO ID: [id number] Author: Mariajose Stallworth MD Service: ? Author Type: Physician Type: Progress Notes Filed: 08/01/2022 3:52 PM Note Text: Rheumatology Outpatient Clinic Date of Service: 08/01/2022 Patient: Naima Hernandez Medical Record: [id number] Primary Care Physician: Zeferino Flores Last Rheumatology visit: None at [facility] History of Present Illness Naima Hernandez [...] , low transverse COLONOSCOP W/ OR W/O [facility] SPEC Colonoscopy EGD EXTRACTION, ERUPTED [...] mouth as needed. meloxicam (more content not included)...[facility]04-06-[facility]23 History of Present illness Narrative* Mariajose Stallworth MD - 08/01/2022 3:09 PM EDT Images from the original note were not included. Rheumatology Outpatient Clinic Date of Service: 08/01/2022 Patient: Naima Hernandez Medical Record: [id number] Primary Care Physician: Zeferino Flores Last Rheumatology visit: None at [facility] History of Present Illness Naima Hernandez [...] , low transverse COLONOSCOP W/ OR W/O [facility] SPEC Colonoscopy EGD EXTRACTION, ERUPTED [...] There is narrowing of all interphalangeal joints. Manager Trading: MARJ Transcribe Date/Time: Oct 10 2019 10:51A... [...] which included preparing to see the patient, tnwt-cc-vlqa patient care, completing clinical documentation, obtaining and/or [...] 2022 Time: 3:09 PM documented in this encounterCleveland [facility]01-[facility] Evaluation note* Encounter Date Diagnosis Assessment Notes Treatment Notes Treatment Clinical Notes Apr, Fatty liver (ICD-10 - K76.0) LABS PATIENT ENCOURAGED WEIGHT LOSS. REFERRAL TO WEIGHT LOSS CLINIC WITH DR. LI. Apr,Elevated liver enzymes (ICD-10 - R74.8) [employer] Other 10-05-2022 Evaluation note* Encounter Date Diagnosis [...] start vitamin e and milk thistle OTC [employer] Other Evaluation noteNo InformationNortCommunity Bound, Inc[employer] Other Evaluation note* Diagnosis Erosive osteoarthritis of both hands- Primary Primary osteoarthritis involving multiple joints NSAID long-term use Encounter for long-term (current) use of non-steroidal anti-inflammatories documented in this encounter [facility]* Diagnosis Fatty liver- Primary Other chronic nonalcoholic liver disease Class 3 severe obesity due to excess calories in adult, unspecified BMI, unspecified whether serious comorbidity present (HCC) documented [facility] this encounter [facility]* Diagnosis Fatty liver Other chronic nonalcoholic liver disease documented [facility] this encounter [facility]* Diagnosis Encounter for wellness examination in adult- Primary Advance directive discussed with patient Morbid obesity (CMS/HCC) Morbid obesity Adult BMI 45.0-49.9 kg/sq m (CMS/HCC) Glucose intolerance (impaired glucose tolerance) Impaired glucose tolerance test Mixed hyperlipidemia ([facility]/HCC) Mixed hyperlipidemia Primary hypertension ([facility]/HCC) Unspecified essential hypertension Menopausal and female climacteric states Osteoporosis screening Special screening for osteoporosis Encounter for follow-up examination after completed treatment for conditions other than malignant neoplasm Screening mammogram for breast cancer documented in this encounter [facility] HealthcareEvaluation note* Diagnosis Mixed dyslipidemia (CMS/HCC) documented in this encounter [facility] HealthcareEvaluation note* Diagnosis Pre-diabetes- Primary Other abnormal glucose Restless leg syndrome Restless legs syndrome (RLS) Mixed dyslipidemia ([facility]/HCC) documented in this encounter [facility] HealthcareEvaluation note* Diagnosis Well woman exam with routine gynecological exam Routine gynecological examination Yeast infection of the skin Candidiasis of skin and nails [facility] Diagnosis Pre-diabetes Other abnormal glucose documented in this encounter [facility] HealthcareEvaluation note* Diagnosis Acute non-recurrent pansinusitis- Primary documented in this encounter [facility] HealthcareEvaluation note* Diagnosis Insomnia due to other mental disorder Recurrent major depressive disorder, in partial remission (HCC) (CMS/HCC) Morbid obesity ([facility]/HCC) Morbid obesity Adult BMI 45.0-49.9 kg/sq m ([facility]) documented in this encounter [facility] HealthcareEvaluation note* Diagnosis Recurrent major depressive disorder, in partial remission (HCC) ([facility]/HCC)- Primary [facility] [...] kg/sq m (CMS/HCC) documented in this encounter [facility]* Diagnosis Palpitations- Primary Tachycardia Unspecified tachycardia documented in this encounter [facility]* Diagnosis Palpitations- Primary Primary hypertension Unspecified essential hypertension Bilateral hip pain Pain in joint, pelvic region and thigh documented in this encounter [facility] note* Diagnosis Onset Date Resolution Status Admit Date Depression with anxiety acuteOctober 2024 8:46am [facility] Work Phone: History general Narrative - Reported* Type Description Date Medical History Unspecified essential hypertensi on Medical HistoryHypercholesterolemiaMedical HistoryDepression with anxiety Surgical HistoryC/Bmedevo1279Ivmqjbck HistoryBilateral knee [id number] Surgical HistorycholecystectomySurgical Historywisdom teethSurgical Historycyst removalHospitalization HistorySee past surgical hx [employer] Other Reason for referral (narrative)No reason for referral information availableOhiohealth Shelby Hospital Work Phone: Reason for visit NarrativePT HERE REQ OF DR. ALBA FOR ELEVATED LIVER ENZYMES, (referral note received)[facility] Other Summary Purpose Family History Relationship Condition [...] THERAPY MEDICAL NUTRITION ASSMT&IVNTJ INDIV EACH 15 [place] MEDICAL NUTRITION ASSMT&IVNTJ INDIV EACH 15 [place] MEDICAL NUTRITION ASSMT&IVNTJ INDIV EACH 15 [place] MEDICAL NUTRITION ASSMT&IVNTJ INDIV EACH 15 [place] Radha Abdul MD [address] [place] [address] Referral IDStaChris DateExpiration DateVisits RequestedVisits [id number] PCP Requested Referral Chief Complaint and Reason [...] section and content) DATE CREATED AUTHOR 12/24/2019 [facility] DATE CREATED AUTHOR AUTHOR'S ORGANIZ ATION 11/14/2021 [facility] DATE CREATED AUTHOR AUTHOR'S ORGANIZ ATION 03/07/2022 [facility] DATE CREATED AUTHOR AUTHOR'S ORGANIZ ATION 12/06/2022 [facility] DATE CREATED AUTHOR AUTHOR'S ORGANIZ ATION 09/04/2024 [facility] DATE CREATED AUTHOR AUTHOR'S ORGANIZ ATION 03/07/2025 [facility] REASON FOR VISIT (unrecogniz ed section and content) ReasonCommentsNew PatientArthritis in handsJoint PainReasonCommentsNew Patient Consult for fatty liverSpecialtyDiagnoses / ProceduresReferred By Contact Referred To ContactGastroenterology / GASTROENTEROLOGY Diagnoses Encounter for follow-up examination after completed treatment for conditions other than malignant neoplasm Fatty liver Procedures OFFICE/OUTPATIENT ESTABLISHED MOD MDM 30-39 MIN NEW DDI PATIENT Mike Salgado DO [address] [place] [address] Radha Abdul MD [address] [place] [address] Referral IDStatusReasonStart DateExpiration DateVisits RequestedVisits [id number]/5/202312/31/454678NvpxqyKjwavcaqOaycsqo Education AssessmentSpecialtyDiagnoses / ProceduresReferred By ContactReferred To Contact Nutrition Diagnoses Fatty liver Procedures CONSULT TO NUTRITION THERAPY MEDICAL NUTRITION ASSMT&IVNTJ INDIV EACH 15 [place] MEDICAL NUTRITION ASSMT&IVNTJ INDIV EACH 15 [place] MEDICAL NUTRITION ASSMT&IVNTJ INDIV EACH 15 [place] MEDICAL NUTRITION ASSMT&IVNTJ INDIV EACH 15 [place] Radha Abdul MD [address] [place] [id number] Referral IDStatusReasonStart DateExpiration DateVisits RequestedVisits [id number] PCP Requested Referral /[id number] ExamReasonCommentsMed Change Request ReasonCommentsResultsReasonCommentsWell Women VisitReasonCommentsURIReason CommentsAnxietyReasonCommentsMed RefillReasonCommentsHypertensionHyperlipidemia AnxietySleeping ProblemReasonCommentsPalpitationsReasonOnset DateCommentsCare Zgdrftlgutst17/15/2025 Source Comments (unrecognize d section and content) In the event this informatio n is protected by the Federal Confidentiality of Alcohol and Drug Abuse Patient Records regulations: The Federal rules restrict any use of the information to criminally investigate or prosecute any alcohol or drug abuse patient.[facility] HospitalIn the event this information is protected by the Federal Confidentiality of Alcohol and Drug Abuse Patient Records regulations: The Federal rules restrict any use of the information to criminally investigate or prosecute any alcohol or drug abuse patient.[facility] HospitalIn the event this information is protected by the Federal Confidentiality of Alcohol and Drug Abuse Patient Records regulations: The Federal rules restrict any use of the information to criminally investigate or prosecute any alcohol or drug abuse patient.[facility] Care Teams (unrecognized sec tion and content) Team MemberRelationshipSpecialtyStart DateEnd Date Zeferino Flores PCP - GeneralInternal Medicine08/26/12Team MemberRelationshipSpecialtyStart Date End Date Zeferino Flores PCP - GeneralInternal Medicine08/26/12Team MemberRelationshipSpecialtyStart Date End Date Zeferino Flores PCP - GeneralInternal Medicine08/26/[address] [place] [address] Registered DietitianNutrition12/05/22Team MemberRelationshipSpecialtyStart Date End Date Enrique Alba MD (Fax) PCP - GeneralFamily Medicine09/16/22Team MemberRelationshipSpecialtyStart DateEnd Date Enrique Alba MD (Fax) PCP - GeneralFamily Medicine5Team MemberRelationshipSpecialtyStart DateEnd Date Enrique Alba MD (Fax) PCP - GeneralFamily Medicine5//23Team MemberRelationshipSpecialtyStart DateEnd Date Enrique Alba MD (Fax) PCP - GeneralFamily Medicine5Team MemberRelationshipSpecialtyStart DateEnd Date Enrique Alba MD (Fax) PCP - GeneralFamily Medicine5/Team MemberRelationshipSpecialtyStart DateEnd Date Enrique Alba MD (Fax) PCP - Generalmily Medicine09/16/22Team MemberRelationshipSpecialtyStart DateEnd Date Enrique Alba MD (Fax) PCP - GeneralFamily Medicine5Team MemberRelationshipSpecialtyStart DateEnd Date Enrique Alba MD (Fax) PCP - GeneralFamily Medicine23Team MemberRelationshipSpecialtyStart DateEnd Date Enrique Alba MD [address] [place] [phone] PCP - GeneralFamily Medicine5//23Team MemberRelationshipSpecialtyStart DateEnd Date Enrique Alba MD [address] [place] [phone] PCP - GeneralFamily Medicine09/16/22Team MemberRelationshipSpecialtyStart DateEnd Date [...] Status: Active Member Role Status Dates Maribeth Galevz APRN FULLING MILL OPERATOR-C Primary Care Provider Active Team Status: Inactive Member Role Status Dates Maribeth Galvez APRN FULLING MILL OPERATOR-C Primary Care Provider Active Start: February 02, 2025 End: February 02, 2025Patrickedwige Galvez APRN FULLING MILL OPERATOR-CAttending ProviderActive Start: February 02, 2025 End: February 02, 2025 Team Status: Active Member Role/Relationship Status Dates Maribeth NATALIA Galvez FULLING MILL OPERATOR-C Primary Care Provider Active Team Status: Inactive Member Role/Relationship Status Dates Maribeth NATALIA Galvez FULLING MILL OPERATOR-C Primary Care Provider Active Start: February 02, 2025 End: February 02, 2025Patrickedwige Galvez SCIENCE TEACHER FULLING MILL OPERATOR-CAttending ProviderActive Start: February 02, 2025 End: February 02, 2025 Team Status: Inactive Member Role/Relationship Status Dates Maribeth NATALIA Galvez FULLING MILL OPERATOR-C Primary Care Provider Active Start: February End: March 02, 2025Patrickedwige Galvez SCIENCE TEACHER FULLING MILL OPERATOR-CAttending ProviderActive Start: March 02, 2025 End: March 02, 2025Team MemberRelationshipSpecialtyStart DateEnd Date Enrique Alba MD PCP - GeneralFamily Medicine09/16/22 Goals (unrecognized section and content) Goals may [...] BE BASED ON THE PRIMARY CLINICAL RECORDS. [employer] provides no warranty or guarantee of the accuracy or completeness of information in this document.
--- OUTSIDE RECORDS SUMMARY | 2025-03-22 07:13 | XMS_ITS | Clinical Summary ---
Author Organization [facility] Address [address] [facility] [place] [address] Care Team Providers Care Activity Aide Name Role Phone Unavailable Primary Care Provider Unavailabl e Source Comments The following information is NOT included in Care Everywhere downloads:Psychiatric notes, ECG results, Cardiac Rehab notes, Pulmonary Function notes, data from [employer] (includes but not limited toPregnancy data,audiograms, eye exams, pre-surgical evaluation notes, well-child exam data).[facility] Allergies No known active allergies Active Problems ProblemNoted DateDiagnosed DatePrimary localized osteoarthrosis, lower leg 02/06/2005Tear of medial cartilage or meniscus of knee, mcldwqr4302/06/2005 Social History Tobacco UseTypesPacks/DayYears UsedDateSmoking Tobacco: Never Assessed CommentsNoSex and Gender InformationValueDate RecordedSex Assigned at BirthNot on fileLegal UypAumiwh03/04/2012 12:09 PM ESTGender IdentityNot on fileSexual OrientationNot on file Plan of Treatment Health MaintenanceDue DateLast JrrbRhoqkipnRwmxjdtazsr53/30/1971HIV Test 1985Hepatitis C Vmfzcsyg82/30/1989Tdap Udhagng6309/24/1988Hepatitis A (HAV) Vaccine (optional start 19+ years)1989Hepatitis B (HBV) Vaccine (1 of 3 - 19+ 3-dose series)1989Tetanus (Td or Tdap) Hqtuthb8409/24/1989Pap Smear 09/25/19912468Aysdachdivk34/30/2011CRC Tpuldmsjl52/30/3454Pdaltbzvbib93/30/2016 Cologuard (Stool DNA)09/25/2015FIT09/25/2015Pneumococcal Vaccine(s) (50+ yrs) (1 of 1 - PCV)1Shingles (RZV) Vaccine (1 of 2)1COVID-19 Vaccine (1 - 2024- season)2024Influenza Vaccine (#1)2024 Insurance
--- OUTSIDE RECORDS SUMMARY | 2025-03-22 07:13 | XMS_ITS | Encounter Summary ---
Author Organization [facility] Address [address] [place] [address] Care Team Providers Care Director Cardiovascular Name Role Phone Enrique Burgos MD Primary Care Provider [phone] Norris Reddy DO Primary Care Provider [phone] Maribeth Galvez MARKET DEVELOPMENT SPECIALIST Unavailable [phone] Encounter Details DateTypeDepartmentCare Team (Latest Contact Info)Ncaamaqchmm05/18/2025Orders Only [facility] [address] [phone] Rachel, [place], [place] Palpitations; Multifocal PVCs with pairing; Tachycardia Social History Tobacco UseTypesPacks/DayYears UsedDateSmoking Tobacco: NeverSmokeless Tobacco: NeverAlcohol UseStandard Drinks/WeekCommentsNever0 (1 standard drink = 0.6 oz pure alcohol)Caffeine intake: 2-3 cups per wtxQ1806 Health LiteracyAnswerDate RecordedHow often do you need [...] relatives?Once a week12/15/2023How often do you attend tenriism or bahai services?More than 4 times per year12/15/2023o you belong to any clubs or organizations such as tenriism groups, unions, fraUniversal World Entertainment LLC or athletic desirae ups, or school groups?No12/15/2023How often do you attend meetings of the clubs or organizations you belong to?Never12/15/2023re you , , , , never , or living with a partner?Agplpvp2112/15/2023 AUDIT-CAnswerDate RecordedQ1: How often do you have [...] at all 12/15/2023HQ-2AnswerDate RecordedPatient Health Questionnaire-2 Score0 08/02/2024[facility] - Occupational Stress QuestionnaireAnswerDate [...] steady place to sleep or slept in [facility] (including now)?No09/18/2022Housing Stability Vital SignAnswerDate RecordedIn the last 12 months, was there a time when you were not able to pay the mortgage or rent on time?No12/15/2023In the past 12 months, how many times have you moved where you were living?t any time in the past 12 months, were you homeless or living in a prison (including now)?No 12/15/2023EducationAnswerDate RecordedWhat is the highest level of school you have completed or the highest degree you have received?Some college, no degree 11/13/2022CommentsNoSex and Gender InformationValueDate RecordedSex Assigned at BirthNot on fileLegal ZbtIfjvvu81/15/2023 7:24 PM EDTGender Identity Not on fileSexual OrientationNot on fileOccupationIndustryJob Start DateJob End DateWorks, full timeNot on fileNot on fileNot on filedocumented as of this encounter Plan of Treatment DateTypeDepartmentCare Team (Latest Contact Info)Nwegatptwem75/03/2025 3:40 PM ESTOffice Visit [facility] [place] [facility] [address] [place] [address] Susanne Heredia MD [address] [place] [address] 04/04/2025 3:00 PM ESTOffice Visit [facility] [address] [place] [address] Janey Savage PA [address] [place] [address] documented as of this encounter Procedures Procedure NamePriorityDate/TimeAssociated DiagnosisCommentsCARDIAC EVENT MONITOR Fhiasre1003/15/2025 3:12 PM EST Palpitations Multifocal PVCs with pairing Tachycardia documented in this encounter Results * Cardiac event monitor (03/15/2025 3:12 PM EST)Anatomical RegionLaterality ModalityHeartOther Narrative Authorizing ProviderResult TypeResult StatusEdellie Burgos [facility] PROCEDURESFinal Result documented in this encounter Visit Diagnoses Diagnosis Palpitations Multifocal PVCs with pairing Tachycardia Unspecified tachycardia documented in this encounter Care Teams Team MemberRelationshipSpecialtyStart DateEnd Date Enrique Burgos MD [address] [place] [address] PCP - GeneralFamily Medicine09/16/2310 Norris Reddy DO [address] [place], [place] [address] [phone] PCP - GeneralInternal Coszxfwx72/19/25 Maribeth Galvez NP [address] [place] [address] Referring PhysicianFamily Csxqgmxc83/19/25documented as of this encounter
--- OUTSIDE RECORDS SUMMARY | 2025-03-22 07:14 | XMS_ITS | Clinical Summary ---
Author Organization [facility] Address [address] [place] [address] Care Team Providers Care Elementary Teacher Name Role Phone Maribeth Galvez NP Primary Care Provider [phone] Allergies Active AllergyReactionsCriticalityNoted DateCommentsDuloxetine HclUnknown 10/15/2021 Other Reaction(s): severe drowsiness MetforminGI tsdmkocyccb51/14/2024 Medications MedicationSigDispense QuantityRefillsLast FilledStart DateEnd DateStatus albuterol [...] by mouth in the morning. 30 tablet ctive busPIRone (Buspar) 5 mg tablet Take 5 mg by mouth two times daily.5Active Active Problems ProblemNoted DateDiagnosed InheUrpgdzd88/10/2025Low back pain03/07/2025Type 2 diabetes zrruqpak72/10/0381Jtzchzhfxne24/10/2025Ventricular dpuqcf07/01/2025 Depression with djdcsvr8102/15/20250367Prktuxberdwwdeyhlcfv77/21/2025Hot flashes 05/12/2024Menopausal /15/2025Pre-yhlgzhzi21/23/2024estless leg /18/2024dult BMI 45.0-49.9 kg/sq m005/14/2023rthritis of left hand 09/17/2022hronic xpqnmrm4109/17/2022ependence on other enabling machine 09/17/20220275Luumiyla52/23/2023ESS (euthyroid sick syndrome)09/17/2022Fatty liver disease, rtcxadoqypik11/23/4703Jpyunegqx15/23/2023HTN (hypertension)09/17/2022 Insomnia due to other mental barazgwn80/23/2023Mixed octtgdvytcfm30/23/2023 Morbid qlmuijl5209/17/2022Obstructive sleep apnea hypopnea, dqavsmil06/23/2023 Osteoarthritis of joint of toe of right foot09/17/2022Other chronic pain 09/17/2022Overactive ecyhdoc3109/17/2022rimary osteoarthritis, right hand 09/17/2022Recurrent major depressive disorder, in partial /23/2023 Status post bilateral knee puwxlkkbvduh07/23/2023Sleep zhmcitns12/23/2023S/P total knee gsuechexfimk91/02/2013ilateral knee pain08/26/2012Primary localized osteoarthrosis, lower leg02/06/2005 Encounters DateTypeDepartmentCare TvjoOhfghwrocno76/14/2025Telephone [facility] [address] [place] [facility] [place] [address] Farhana Motley MA 03/07/2025 10:40 AM ESTOffice Visit [facility] [address] [place] [facility] [place] [place] [address] Leonides Gillette MD Tachycardia (Primary Dx); Ventricular hxxjyi7703/07/2025Orders Only [facility] [address] [place] [facility] [place] [address] Adina Craft MA 03/07/2025Orders Only [facility] [address] [place] [facility] [place] [address] Provider, MD Viral 02/17/2025Orders Only [facility] [address] [place] [facility] [address] Glenny Brooke MA LVH (left ventricular hypertrophy) (Primary Dx); Shortness of dtxumu8402/16/2025 3:40 PM EDTOffice Visit [facility] [address] [place] [facility] [place] [address] Leonides Gillette MD Shortness of breath (Primary [...] and Gender InformationValueDate Recorded Sex Assigned at GhhcyXycsxf44/22/2025 1:53 PM EDTLegal SwxKgbngy56/05/2025 2:36 PM EDTGender AwocdxkuVajscm86/22/2025 1:53 PM EDTSexual OrientationHeterosexual or Aiksgvji73/22/2025 1:53 PM EDT Last Filed Vital Signs Vital SignReadingTime TakenCommentsBlood Zgojcxil013/8803/07/2025 9:52 AM EST Lbqqq13426/10/2025 9:52 AM ESTTemperature--Respiratory Rate--Oxygen Saturation 94%03/07/2025 9:52 AM ESTInhaled Oxygen Concentration--Acxxrs048 kg (268 lb) 03/07/2025 9:52 AM IOTBypasm740 cm (5' 3 )03/07/2025 9:52 AM ESTBody Mass Index 47.4703/07/2025 9:52 AM EST Plan of Treatment DateTypeDepartmentCare Team (Latest Contact Info)Dkygmtktmeq55/02/2025 9:30 AM ESTHospital Encounter [facility] Heart [facility] [address] [place] [address] Leonides Gillette MD [address] [place] [address] Tachycardia; Ventricular oggcck2303/29/2025 9:30 AM EST - 03/29/2025 10:30 AM ESTSurgery [facility] Heart [facility] [address] [place] [address] Leonides Gillette MD [address] [place] [address] Coronary angiographyHealth MaintenanceDue DateLast DoneCommentsCT Colonography 1970 4892Xndgssdqcyv20/30/1971Diabetes: Hemoglobin A1C1970FOBT1970 Mppohumthfonb22/30/1971Diabetes: Retinopathy Dlieasmhw47/30/1981Depression Yrydvavqy71/30/1983Diabetes: Urine Protein Bvfzuijgb00/30/1990Hepatitis B Vaccines (1 of 3 - 19+ 3-dose series)1989Pneumococcal Vaccine: Pediatrics (0 to 5 Years) and At-Risk Patients (6 to 64 Years) (1 of 2 - PCV)1989 Adult Ysyjpub3409/24/1992HPV/Nrzumw4409/24/20008771Pvltywycv54/17/202303/FIT /4COVID-19 Vaccine (2024- season)509/12/2023, 01/20/2023, 01/15/2022, Additional history existsColorectal Cancer Screening 09/18/2026FIT-DNA/ervical Cancer Ijvhmalwh54/02/2027Pap Smear/05/2023Zoster NnhckkpdKpesnlmpx79/16/2021, 12/02/2020Influenza FskunxhHhxniciwz93/05/2025, 01/05/2024, 01/20/2023, Additional history existsHIB VaccinesAged OutNo longer eligible based on patient's [...] to complete this topic Procedures Procedure NamePriorityDate/TimeAssociated DiagnosisCommentsCOMPLETE TRANSTHORACIC ECHO (TTE) W/WO IMAGING AGENT, STRAIN, 3D, BUBBLE STUDYRoutine 03/07/2025 11:36 AM ESTROUTINE STRESS (TREADMILL ONLY)Yhkblrd4703/07/2025 9:55 AM ESTfrom Last 3 Months Results * Complete Echo (TTE) w/wo Imaging Agent, Strain, 3D, Bubble Study (03/07/2025 11:36 AM EST)Anatomical RegionLateralityModalityUltrasound Narrative Authorizing ProviderResult TypeResult StatusHistorical Provider [facility] ECHO PROCEDURESFinal Result from Last 3 Months Insurance Care Teams Team MemberRelationshipSpecialtyStart DateEnd Date Maribeth aGlvez NP [address] [place] [address] PCP - GeneralFamily Oezfbhjy17/22/25
--- OUTSIDE RECORDS SUMMARY | 2025-03-22 07:14 | XMS_ITS | Clinical Summary ---
Author Organization [facility] Address [address] [place] [address] Care Team Providers Care Toolroom Checker Name Role Phone Ronak Flores Primary Care Provider Taylor Mejia RD Unavailable [phone] Allergies No known active allergies Medications MedicationSigDispense QuantityRefillsLast FilledStart DateEnd DateStatus albuterol HFA (PROVENTIL HFA, VENTOLIN HFA) 90 mcg/actuation inhaler Inhale 2 Puffs as instructed every 6 hours as needed.09/26/2017Active Active Problems ProblemNoted DateDiagnosed DateS/P total knee aellzsdrybhi07/02/2013ilateral knee pain08/26/2012 Social History Tobacco UseTypesPacks/DayYears UsedDateSmoking Tobacco: NeverSmokeless Tobacco: Never Tobacco Cessation:Counseling Given: Not Answered Alcohol UseStandard Drinks/WeekCommentsNo0 (1 standard drink = 0.6 oz pure alcohol)PHQ-2AnswerDate RecordedPHQ-2 khpgt852rea Deprivation Index AnswerDate RecordedNational Score (1-100), lower number is lower risk87 10/30/2022State Score (1-10), lower number is lower cvko28610/30/2022ata from: https://www.neighborhoodatlas.medicine.[facility].edu/. Last address used for nkfgbqfjwzu[address]10/30/2022CommentsNoSex and Gender InformationValueDate RecordedSex Assigned at BirthNot on fileLegal SexFemale 03/29/2012 8:03 AM ESTGender IdentityNot on fileSexual OrientationNot on file Last Filed Vital Signs Vital SignReadingTime TakenCommentsBlood Ijtsktjr514/8104/09/2022 2:50 PM EDT Nynng32540/06/2023 2:50 PM VATUjyfnlgdbgi04.4 ??C (97.5 ??F)04/01/2013 1:45 PM ESTRespiratory Djfz947806/02/2012 1:45 PM ESTOxygen Lfmkwsrwqz66%04/01/2013 1:45 PM ESTInhaled Oxygen Concentration--Ygkuxo893.9 kg (260 lb)12/05/2022 2:03 PM XFNIhddft014 cm (5' 3 )12/05/2022 2:03 PM EDTBody Mass Index46.0612/05/2022 2:03 PM EDT Plan of Treatment Health MaintenanceDue DateLast DoneCommentsAnxiety Wvnwtfero99/30/1989Depression Orplsnlgj50/30/1989HIV Xtnhbmkne11/30/1989Hepatitis C Hzvddbiux80/30/1989 DTaP,Tdap,Td Vaccine (1 - Tdap)1989Hepatitis B Vaccine (1 of 3 - 19+ 3- dose series)1989Cervical Cancer Gnvsjhphg15/30/1992CT Colonography 09/25/2015Cologuard (FIT-DNA)09/25/20150791Fpvjznfiztp37/30/2016Colorectal Cancer Whuixsvzp43/30/2016Fecal Occult Blood09/25/2015Lipid Akxgagjmx96/30/2016 Uuhohrkezkwnb25/30/2016Diabetes Xkknqdvpd51, 03/30/2013, 03/19/2013, Additional history existsPneumococcal Vaccine: 50+ (1 of 1 - PCV) 2020Mammogram Cukialvjb80/ovid-19 Vaccine ( - 2024- season)509/, 07/27/2021, 03/08/2021, Additional history exists Influenza Vaccine (#1)509/, 01/27/2021, 02/02/2020, Additional history existsShingrix AhnsaxwBdpmqqehn23/16/2021, 12/02/2020 Medical Devices ImplantedTypeAreaManufacturerDevice [facility] Expiration DateModel / Serial / LotSimplex P Bone Cement Radiopaque Full Dose Individual Pack - [id number] Implanted:Qty: 1 on 10/27/2012 at [facility] 02/25/[id number] / / [id number] P Bone Cement Radiopaque Full Dose Individual Pack - [id number] Implanted:Qty: 1 on 10/27/2012 at [facility] 01/25/[id number] / / [id number] P Bone Cement Radiopaque Full Dose Individual Pack - [id number] Implanted:Qty: 2 on 03/30/2013 at [facility] /[id number] / / [id number] Tib 4 13mm Kn X3 Cr Trthln - [id number] Implanted:Qty: 1 on 10/27/2012 at [facility] SFHJEXDWBZH01/31/[id number] / / [id number] Fem 4 Lt Kn Cr Ivan Trthln - [id number] Implanted:Qty: 1 on 10/27/2012 at [facility] ZSYGGSGUYNE40/23/[id number] / / [id number] Fem 4 Rt Kn Cr Ivan Trthln - [id number] Implanted:Qty: 1 on 03/30/2013 at [facility] MGPNVKKIRTR14/09/[id number] / / [id number] Tib 3 9mm Kn X3 Cr Trthln - [id number] Implanted:Qty: 1 on 03/30/2013 at [facility] UAPIBICSRLE20/29/[id number] / / MMPJMWComp Pat 10mm 32mm Asym Trthln - [id number] Implanted:Qty: 1 on 10/27/2012 at [facility] MWIBDVUSPWO32/07/[id number] / / WPT114Gdus Pat 10mm 32mm Asym Trthln - [id number] Implanted:Qty: 1 [facility]30/2013 [facility] NRQYACFYEDK80/04/[id number] / / [id number] Tib Trthln 4 Prim - [id number] Implanted:Qty: 1 on 10/27/2012 at [facility] [employer] 08/03/[id number] / / HMKGABaseplt Tib Trthln 3 Prim - [id number] Implanted:Qty: 1 on 03/30/2013 at [facility] [employer] 03/10/[id number] / / [id number] Procedures Procedure NamePriorityDate/TimeAssociated DiagnosisCommentsBASIC METABOLIC PANEL Gsfpqjv4603/31/2013 10:32 PM EST from Last 3 Months or Most Recently Relevant to Health Maintenance Results * (ABNORMAL) BASIC METABOLIC PNL (03/31/2013 10:32 PM EST)ComponentValueRef RangeTest MethodAnalysis TimePerformed AtPathologist KaqakkfpaMpxvxmo933(H)65 - 100 mg/dLMER[facility] XBLMBKCLBKHMB029 - 25 mg/dLMERCY [facility]ALTH [facility]ERR[facility]BUR[facility] LABORATORYCreatinine0.720.70 - 1.40 mg/dLMERCY HEALTH [facility] LABORATORY Aoofdi230882 - 148 mmol/LCMEMORIAL HEALTH SYSTEM LABORATORYPotassium4.33.5 - 5.0 mmol/LCMEMORIAL HEALTH SYSTEM DAPSRPPHSGEafprrie18346 - 110 mmol/LCMEMORIAL HEALTH SYSTEM BPOLRUZEUDMS930(L)23 - 32 mmol/LCMEMORIAL HEALTH SYSTEM LABORATORY Anion Xpt854 - 15 mmol/LCMEMORIAL HEALTH SYSTEM LABORATORYCalcium8.68.5 - 10.5 mg/dLMERCY [facility] LABORATORYSpecimen (Source)Anatomical Location / LateralityCollection Method / VolumeCollection TimeReceived TimeBlood specimen (specimen)BLOOD SPECIMEN / Clrvxiz9703/31/2013 10:32 PM EST03/31/2013 10:33 PM EST Narrative Authorizing ProviderResult TypeResult StatusCarlton Denny MDLABORATORYFinal ResultPerforming OrganizationAddressCity/State/ZIP CodePhone Number [facility] [address] [place] [address] from Last 3 Months or Most Recently Relevant to Health Maintenance Insurance Care Teams Team MemberRelationshipSpecialtyStart DateEnd Date Ronak Flores PCP - GeneralInternal Medicine08/26/12 Taylor Gee, [place] [id number] [facility] [place], [place] [id number] Registered DietitianNutrition12/05/22
--- OUTSIDE RECORDS SUMMARY | 2025-03-22 07:14 | XMS_ITS | Encounter Summary ---
Author Organization [facility] Address [address] [place] [address] Care Team Providers Care Medical Staff Manager Name Role Phone AnnaMaribeth davis MITALI Primary Care Provider [phone] Encounter Details DateTypeDepartmentCare Team (Latest Contact Info)Eciwmndaujp14/10/2025Orders Only [facility] [place] [address] [place] [address] Adina Craft MA Social History Tobacco UseTypesPacks/DayYears UsedDateSmoking Tobacco: NeverSmokeless Tobacco: NeverAlcohol UseStandard Drinks/WeekCommentsNot Currently0 (1 standard drink = 0.6 oz pure alcohol)CommentsUnknownSex and Gender InformationValueDate RecordedSex Assigned at OpascGsubhw05/22/2025 1:53 PM EDTLegal SexFemale 11/30/2024 2:36 PM EDTGender HtxhnmfiEnuegr70/22/2025 1:53 PM EDTSexual OrientationHeterosexual or Rsvdotpe09/22/2025 1:53 PM EDTdocumented as of this encounter Functional Status * BPAnswerDate of LrhydjbmqvFzhhtl664/ 9:52 AM Farhana Tapia MA * PulseAnswerDate of WoxhsshhgoObbxtt78205/10/2025 9:52 AM Farhana Tapia MA * Patient PositionAnswerDate of LdlkuahhseCsvxzyMuujvfe25/10/2025 9:52 AM Farhana Farris MA * BPAnswerDate of CbqvlkazjqDeblod312/ 9:52 AM Farhana Tapia MA * PulseAnswerDate of NbukbdqdyyVmyjeu07185/10/2025 9:52 AM Farhana Tapia MA * KeH0BpczxqUunx of MouieloaihParthg3188/10/2025 9:52 AM Farhana Tapia MA * BP LocationAnswerDate of AssessmentAuthorLeft arm03/07/2025 9:52 AM Farhana Farris MA * Patient PositionAnswerDate of ChlnwlaifrMdmnriEjlgedl59/10/2025 9:52 AM Farhana Farris MA documented as of this encounter Plan of Treatment DateTypeDepartmentCare Team (Latest Contact Info)Bksnvvojhxo01/02/2025 9:30 AM ESTHospital Encounter [facility] Heart [facility] [address] [facility] [place] [address] Leonides Gillette MD [address] [place] [address] Tachycardia; Ventricular zpcwbk3703/29/2025 9:30 AM EST - 03/29/2025 10:30 AM ESTSurgery [facility] [address] [facility] [place] [address] Leonides Gillette MD [address] [facility] [place] [address] Coronary angiographydocumented as of this encounter Procedures Procedure NamePriorityDate/TimeAssociated DiagnosisCommentsCOMPLETE TRANSTHORACIC ECHO (TTE) W/WO IMAGING AGENT, STRAIN, 3D, BUBBLE STUDYRoutine 03/07/2025 11:36 AM ESTdocumented in this encounter Results * Complete Echo (TTE) w/wo Imaging Agent, Strain, 3D, Bubble Study (03/07/2025 11:36 AM EST)Anatomical RegionLateralityModalityUltrasound Narrative Authorizing ProviderResult TypeResult StatusHistorical Provider [facility] [place] ECHO PROCEDURESFinal Result documented in this encounter Visit Diagnoses Not on filedocumented in this encounter Care Teams Team MemberRelationshipSpecialtyStart DateEnd Date Maribeth Galvez NP [address] [place] [address] PCP - GeneralFamily Shrdqhph65/22/25documented as of this encounter
--- OUTSIDE RECORDS SUMMARY | 2025-03-22 07:14 | XMS_ITS | Encounter Summary ---
Author Organization [facility] Address [address] [place] [address] Care Team Providers Care General Car Supervisor Yard Name Role Phone Kati Galvezfer MITALI Primary Care Provider [phone] Encounter Details DateTypeDepartmentCare Team (Latest Contact Info)Jpnxjzdlyxm65/10/2025Orders Only [facility] at [address] [address] ProviderViral MD [facility] [place] [address] Social History Tobacco UseTypesPacks/DayYears UsedDateSmoking Tobacco: NeverSmokeless Tobacco: NeverAlcohol UseStandard Drinks/WeekCommentsNot Currently0 (1 standard drink = 0.6 oz pure alcohol)CommentsUnknownSex and Gender InformationValueDate RecordedSex Assigned at RpgplKkuodt45/22/2025 1:53 PM EDTLegal SexFemale 11/30/2024 2:36 PM EDTGender RpwikoupFkukyl26/22/2025 1:53 PM EDTSexual OrientationHeterosexual or Xcuqngzt37/22/2025 1:53 PM EDTdocumented as of this encounter Functional Status * BPAnswerDate of XwwwkscoicQotxcj337 9:52 AM Farhana Tapia MA * PulseAnswerDate of CrzgtimsjzKpehbd15143/10/2025 9:52 AM Farhana Tapia MA * Patient PositionAnswerDate of MbnqeoxbldVzqokmFuhuewu90/10/2025 9:52 AM Farhana Farris MA * BPAnswerDate of ZsmoakupnoAiunts170 9:52 AM Farhana Tapia MA * PulseAnswerDate of WimdpauhneKkjztg07821/10/2025 9:52 AM Farhana Tapia MA * NtE4JyuudbGgil of ElfcaeucckWifxwb9891/10/2025 9:52 AM Farhana Tapia MA * BP LocationAnswerDate of AssessmentAuthorLeft arm03/07/2025 9:52 AM Farhana Farris MA * Patient PositionAnswerDate of MskaypafjpBsjkzjHtchluv63/10/2025 9:52 AM Farhana Farris MA documented as of this encounter Plan of Treatment DateTypeDepartmentCare Team (Latest Contact Info)Gjdhiqxxqzr38/02/2025 9:30 AM ESTHospital Encounter [facility] Heart [facility] Lab [address] [place] [address] Leonides Gillette MD [address] [place] [address] Tachycardia; Ventricular rosvbl2103/29/2025 9:30 AM EST - 03/29/2025 10:30 AM ESTSurgery [facility] [address] [facility] [place] [address] Leonides Gillette MD [address] [place] [address] Coronary angiographydocumented as of this encounter Procedures Procedure NamePriorityDate/TimeAssociated DiagnosisCommentsROUTINE STRESS (TREADMILL ONLY)Jtypcsq7003/07/2025 9:55 AM ESTdocumented in this encounter Visit Diagnoses Not on filedocumented in this encounter Care Teams Team MemberRelationshipSpecialtyStart DateEnd Date Maribeth Galvez NP [address] [place] [address] PCP - GeneralFamily Naabvpkt51/22/25documented as of this encounter
--- OUTSIDE RECORDS SUMMARY | 2025-03-22 07:14 | XMS_ITS | Encounter Summary ---
Author Organization [facility] Address [address] [place] [place] [address] Care Team Providers Care Crossbow Maker Name Role Phone LeonorAnnieMaribeth CIGARETTE INSPECTOR Primary Care Provider [phone] Encounter Details DateTypeDepartmentCare Team (Latest Contact Info)Ilhdvgopral93/14/2025Telephone [address] [phone] Farhana Motley MA Social History Tobacco UseTypesPacks/DayYears UsedDateSmoking Tobacco: NeverSmokeless Tobacco: NeverAlcohol UseStandard Drinks/WeekCommentsNot Currently0 (1 standard drink = 0.6 oz pure alcohol)CommentsUnknownSex and Gender InformationValueDate RecordedSex Assigned at FokbdJxpsqu07/22/2025 1:53 PM EDTLegal SexFemale 11/30/2024 2:36 PM EDTGender ToisflmzMoenxe07/22/2025 1:53 PM EDTSexual OrientationHeterosexual or Cbblpnkg46/22/2025 1:53 PM EDTdocumented as of this encounter Miscellaneous Notes * Telephone Encounter - Farhana Motley MA - 03/11/2025 9:54 AM EST Spoke to [facility], referral received they will be reaching out to schedule her. documented in this encounter Plan of Treatment DateTypeDepartmentCare Team (Latest Contact Info)Pcgyafdrbqd90/02/2025 9:30 AM ESTHospital Encounter [facility] [address] [place] [address] Leonides Gillette MD [address] [facility] [place] [address] Tachycardia; Ventricular vnouqg7603/29/2025 9:30 AM EST - 03/29/2025 10:30 AM ESTSurgery [facility] [address] [place] [address] Leonides Gillette MD [address] [place] [address] Coronary angiographydocumented as of this encounter Visit Diagnoses Not on filedocumented in this encounter Care Teams Team MemberRelationshipSpecialtyStart DateEnd Date Maribeth Galvez NP [address] [place] [address] PCP - GeneralFamily Xqfauljg63/22/25documented as of this encounter
[2025-03-22 07:35] LABS: Hematocrit 44.9 % (36.0-48.0); Hemoglobin 14.7 g/dL (12.0-16.0); Immature Granulocytes Abs Auto 0.01 10^3/uL (0.00-0.03); Immature Granulocytes Pct Auto 0.2 % (0.0-0.5); Lymphocytes Absolute Auto 1.5 10^3/uL (1.2-3.8); Mean Corpuscular HGB Conc 32.7 g/dL (29.9-35.2); Mean Corpuscular Hemoglobin 27.9 pg (26.7-34.0); Mean Corpuscular Volume 85.2 fL (81.0-99.0); Platelet Count 222 10^3/uL (150-450); Red Blood Count 5.27 10^6/uL (4.20-5.40); White Blood Count 5.1 10^3/uL (4.0-11.0)
[2025-03-22 08:03] LABS: Microalbum Creatinine Ratio Ur 28.9 mg/g (0.0-29.9)
[2025-03-22 08:05] LABS: Alanine Aminotransferase 61 U/L (14-59); Albumin Globulin Ratio 0.9; Albumin Level 3.7 g/dL (3.4-5.0); Alkaline Phosphatase 107 U/L (46-116); Anion Gap 11.2; Aspartate Amino Transferase 45 U/L (15-37); Blood Urea Nitrogen 15.0 mg/dL (7.0-18.0); Calcium 8.7 mg/dL (8.5-10.1); Carbon Dioxide 30.0 mmol/L (21.0-32.0); Chloride 105 mmol/L (98-107); Cholesterol 231 mg/dL (<=200); Estimated GFR (African America >60 (>=60 mL/min/1.73m^2); Estimated GFR (Non-African Ame >60 (>=60 mL/min/1.73m^2); Globulin 3.9 g/dL; Glucose 119 mg/dL (74-106); HDL Cholesterol 37 mg/dL (40-60); Potassium 4.2 mmol/L (3.5-5.1); Sodium 142 mmol/L (136-145); Total Protein 7.6 g/dL (6.4-8.2); Triglycerides 203 mg/dL (<=150); VLDL CHOLESTEROL 40.6 mg/dL
== END 2025-03-22 07:11 | disposition home or self-care (01) ==
LOC: LAB 07:11
PROVIDERS: PCP Nurse Practitioner Family; Visit Provider Nurse Practitioner Family
DX: E11.9 Type 2 diabetes mellitus without complications (principal); E78.00 Pure hypercholesterolemia, unspecified
CPT/HCPCS: 36415; 80053; 80061; 82043; 82570; 85025

== ENCOUNTER 2025-04-04 19:56 | Outpatient (REF) | payer OTHER, SELFPAY ==
--- OUTSIDE RECORDS SUMMARY | 2025-03-25 15:11 | XMS_ITS | Continuity of Care Document ---
Author Organization [facility] Address [address] [place] [id number] Phone Care Team Providers Care Nuclear Medical Technologist Name Role Phone Maribeth Galvez APRN Primary Care Provider Maribeth Galvez APRN Attending Provider [phone] Care Teams Patient Care Team Team Status: Active Member Role/Relationship Status Dates Maribeth Galvez APRN GAMER-C Primary Care Provider Active Visit Care Team Team Status: Inactive Member Role/Relationship Status Dates Maribeth Galvez APRN GAMER-C Primary Care Provider Active Start: February End: March 02, 2025Maribeth Galvez APRN GAMER-CAttending ProviderActive Start: March 02, 2025 End: March 02, 2025 Chief Complaint and Reason for Visit Chief Complaint Admit Date 4 WK F/U March 02, 2025 8 :20am Reason for Visit Admit Date Anxiety March 02, 2025 8 :20am Hypercholesterolemia March 02, 2025 8:20am Low back pain March 02, 2025 8 :20am Restless leg March 02, 2025 8 :20am Type 2 diabetes mellitus March 02 8:20am Allergies, Adverse Reactions, Alerts Allergen Type [...] 20, 2025 11:00pmComplies with drug therapyBlood-Glucose Sensor ([employer] Ana 2 Plus Sensor) deviceActive0.Iawcn98VuyujiymMarch 15, 2025 12:00am Type 2 diabetes mellitus Type 2 diabetes mellitus without complicationsAs directedTirzepatide (Mounjaro) 2.5 mg/0.5 mL pen injectorActive2.5MGSUBCUTevery week2.5302024 8:57amType 2 diabetes mellitus Type 2 diabetes mellitus without complicationsfor 4 weeksUnknownAtorvastatin 20 mg qhmujoApgfnypeuqhe28UOIPJhumf at bedtimeWell[facility] 2017 12:00[facility] 2024 7:58amhyperlipidemiaSertraline 100 mg tzdnlnUqtjygdgdjva140RNLLXmtiv at bedtimeWellspan [facility] 2017 12:00amOctober 2024 7:59amLosartan 100 mg mtaaezHmdirotoovkb789EBBGNlppl at bedtimeDebanner del [facility] 2017 12:00amOctober 2024 7:59amhtnDocusate Sodium (Colace) 100 mg msbduwaHbvaovseaoxv321XXDCTqpry daily as needed for entoynsvratz240Wsnqeowv 2017 9:46amOctnorton hospital 2024 7:58amIbuprofen 600 mg fuiclzSupyktaifiei853MUTCP4W as needed for umsm690 April 06, 2018 12:00amOctnorton hospital 2024 7:59amBuspirone 5 mg tabletActive5 MGPOTwice hpwdd86896Lhcitbky 5th, 2025 12:00amAnxiety Anxiety disorder, unspecifiedComplies with drug therapyTirzepatide (Mounjaro) 2.5 mg/0.5 mL pen injectorDiscontinued2.5MGSUBCUTevery week2.5300Nov2024 12:00amNovember 2024 8:58amType 2 diabetes mellitus Type 2 diabetes mellitus without complicationsfor 4 weeksBlood- Glucose,Clinical Practitioner,Cont (Dexcom G7 Clinical Practitioner) miscDiscontinued0.Cvjvz58LgmaodhcMarch 02, 2025 12:00amNove2024 1:26pmCheck blood sugar dailyBlood-Glucose Sensor (Dexcom G6 Sensor) deviceDiscontinued0.Zqsow48KearczitMarch 02, 2025 12:00am March 09, 2025 1:26pmTo check blood sugar dailyRopinirole 1 mg tabletActive 1MGPODaily at bedtimeOctnorton hospital 2024 11:00pmadminister 1-3 hours before bedtimeComplies with drug therapyGabapentin 100 mg bxbcoowImsyze844ZUPCUyrdx times daily as neededOct2024 11:00pmComplies with drug therapy Semaglutide (Ozempic) 0.25 mg or 0.5 mg(2 mg/1.5 mL) pen injectorDiscontinued 0.25MGSUBCUTevery weekOct2024 11:00pmOctnorton hospital 2024 7:15pmfor 4 weeksSertraline (Zoloft) 25 mg fglpacAfpcgpgnukdo64BQEVBorid97571Pdcqihn 2024 11:00pmNov2024 8:48amAnxiety with depression Other specified anxiety disordersSemaglutide (Ozempic) 0.25 mg or 0.5 mg(2 mg/1.5 mL) pen injectorDiscontinued0.25MGSUBCUTevery week1.50Octnorton hospital 2024 7:14pmNovbanner heart hospital 2024 8:52amType 2 diabetes mellitus Type 2 diabetes mellitus without complicationsfor 4 weeks Immunizations Immunization Event Date Not Given Reason Dose Number Office System Analyst Lot Number Reason(s) Given Vaccine Information Statement (VIS) Detail Administration Location Influenza, seasonal, injectable, pf February [id number] [facility] Relevant Diagnostic Tests and/or Laboratory Data Laboratory Results Test Collection Date/Time Result Date/Time Result Interpretation Reference Range Result Comment Performing Site Bedside Hemoglobin A1c March 02, 2025 9:18am Novem matt 2024 9:19am 6.5 % Vital Signs Vital Reading Result Reference Range Collection Date/Time Height 63 [in_i] March 02, 2025 8:81wsYovvdc838.10 kgMarch 02, 2025 8:27amHeart Sznj247 /aug13-074AcllxiueMarch 02, 2025 8:27amRespiratory rate14 /fwg04-33GljogvgoMarch 02, 2025 8:27amOxygen saturation by Pulse rrnskohc47 %95-100March 02, 2025 8:27amBP Logbntvz588 mm[Hg]100-140March 02, 2025 8:27amBP Wymjgyikq128 mm[Hg]60-100March 02, 2025 8:27amBMI (Body Mass Index)47.2 kg/k9SpqqacdtMarch 02, 2025 8:27am Advance Directives Advance Directive Response Recorded Date/ Time Advance Directives No February 4:41pm Insurance Providers Guarantor Javed Cuadra Address [address] [place] [id number] Info.Home Phone: Payer Group Member ID Coverage Type Subscriber Relationship to Subscriber Effective Date Expiration Date [employer] Id: [id number] B Fleming , D Id: [id number] [address] [place] [id number] Home Phone: Encounters Encounter Location(s) Arrival/Admit Date Discharge/Departure Date Discharge/Departure Disposition Provider(s) Departed Physician/ Provider Office Visit -[facility] March 02, 2025 8:20am March 02, 2025 9:47am Discharged to home care or self care (routine discharge) Maribeth Galvez APRN CNP Recent Diagnosis Onset Date Admit Date Anxiety Unknown March 02 8:20am Hypercholesterolemia Unknown February 8:20am Low back pain Unknown March 02 8:20am Restless leg Unknown March 02 8:20am Type 2 diabetes mellitus Unknown Novembe r 2024 8:20am Assessments Diagnosis Onset Date Resolution Status Admit Date Anxiety acuteMarch 02, 2025 8:20amHypercholesterolemiaacuteNovember 2024 8:20am Low back painacuteMarch 02, 2025 8:20amRestless legacuteMarch 02, 2025 8:20amType 2 diabetes mellitusacuteMarch 02, 2025 8:20am Plan of Treatment Author [facility]vez [facility]March 05, 2025 9:34amPatient is not suicidal or homicidal at [...]
--- OUTSIDE RECORDS SUMMARY | 2025-04-04 19:59 | XMS_ITS | CCD ---
Author Organization [facility] Care Team Providers Care Food Counter Worker Name Role Phone ANJALI, DR BLAKELY Admitting [...] Provider Enrique Alba MD Primary Care Provider [phone] LUIS EDUARDO LEVINE Attending Unavailable LUIS EDUARDO LEVINE Referring Unavailable ENRIQUE ALBA Attending Unavailable ENRIQUE ALBA Attending Unavailable ENRIQUE ALBA Attending Unavailable ENRIQUE ALBA Attending Unavailable ENRIQUE ALBA Attending Unavailable JANEY SAVAGE Attending Unavailable ENRIQUE ALBA Attending Unavailable BEATRIZ CHAVIS Attending Unavailable BEATRIZ CHAVIS Referring Unavailable Maribeth Galvez APRN Primary Care Provider Maribeth Galvez APRN Attending Provider [phone] Maribeth Galvez APRN Primary Care Provider Maribeth Galvez APRN Attending Provider SOURAV SALDANA Attending Unavailable SOURAV SALDANA Attending Unavailable Allergies Allergy ClassificationReported Allergen(s)Allergy TypeDate of OnsetReaction(s) Facility (20 sources)DULoxetine; Translations: [DULOXETINE HCL]Drug [id number] (20 sources)metFORMIN; Translations: [METFORMIN]Drug Kckgyej92-70-4090WSN[facility]ours Foundation Work Phone: Medications Current Medications MedicationDrug Class(es)DatesSig (Normalized)Sig (Original)[id number] 200 actuat albuterol 0.09 mg/actuat metered dose inhaler (20 sources)beta2-Adrenergic AgonistStart: 47-52-2223azva 2 puff(s) by inhalation every six hours for wheezingalbuterol HFA (ProAir HFA) 90 mcg/act inhaler Indications: Bronchitis Inhale 2 puffs every 6 (six) hours if needed for wheezing 18 g 3 05/14/2023 ActiveStart: 80-19-1441zjuc 2 puff(s) by inhalation every six hours as neededalbuterol HFA (PROVENTIL HFA, VENTOLIN HFA) 90 mcg/actuation inhaler Inhale 2 Puffs as instructed every 6 hours as needed. 0 09/26/2017 ActiveComment on above:Inhale 2 Puffs as instructed every 6 hours as needed.Blood-Glucose Sensor (Dexcom G6 Sensor) device (1 source)Start: 99-86-7844Tbhik-Glucose Sensor (Dexcom G6 Sensor) device Active 0 .Route 3 March 02, 2025 12:00am To check blood sugar dailyBlood- Glucose,Research Assistant Member,Cont (Dexcom G7 Research Assistant Member) misc (1 source)Start: 80-13-0931Ygygu-Glucose,Research Assistant Member,Cont (Dexcom G7 Research Assistant Member) misc Active 0 .Route 1 March 02, 2025 12:00am Check blood sugar dailybusPIRone hydrochloride 5 mg oral tablet (1 source)Start: 60-46-9711hpsq 1 tablet by mouth twice dailyBuspirone 5 mg tablet Active 5 MG PO Twice daily 60 30 March 02, 2025 12:00am Anxiety Anxietydisorder, unspecified Complies with drug therapycitalopram 10 mg oral tablet (3 sources)Serotonin Reuptake InhibitorStart: 11-76-5006zarn 1 tablet by mouth once dailycitalopram (CeleXA) 10 MG tablet Indications: Hot flashes , Menopausal symptoms Take 1 tablet (10 mg) by mouth Daily 30 tablet 3 05/12/2024 Active diclofenac sodium 0.03 mg/mg topical gel (20 sources)Nonsteroidal Anti-inflammatory DrugStart: 86-09-8290glckigjkjs sodium 3 % gel Apply 1 application topically every 6 (six) hours. 07/23/2021 Activefenofibrate 160 mg oral tablet (20 sources)Peroxisome Proliferator Receptor alpha AgonistStart: 03-15-2024 End: 02-33-5627fchd 1 tablet by mouth once dailyfenofibrate (Triglide) 160 MG tablet Indications: Mixed dyslipidemia Take 1 tablet (160 mg) by mouth Daily 90 tablet 1 08/02/2024 ActiveStart: 03-11-2024 End: 48-68-2484vazy 1 capsule by mouth once dailyFenofibrate 150 MG capsule Indications: Mixed dyslipidemia (CMS/HCC) Take 150 mg by mouth Daily 30 capsule 03/11/2024 03/15/2024 Discontinued (Formulary change)Start: 01-29-2023 End: 45-43-1046lgju 1 tablet by mouth in the morningfenofibrate (Tricor) 145 MG tablet Indications: Mixed hyperlipidemia (CMS/HCC) Take 1 tablet (145 mg) by mouth in the morning. 90 tablet 1 01/29/2023 02/25/2024 Discontinued (Therapy completed)Fezolinetant (Veozah) 45 MG tablet (5 sources)Start: 07-21-2024 End: 08-98-7728fcbb 1 tablet by mouth once dailyFezolinetant (Veozah) 45 MG tablet Indications: Hot flashes , Menopausal symptoms Take 45 mg by mouth Daily 30 tablet 1 07/21/2024 09/01/2024 ActiveStart: 07-21-2024 End: 63-14-0398siiu 1 tablet by mouth once dailyFezolinetant (Veozah) 45 MG tablet Indications: Hot flashes , Menopausal symptoms Take 45 mg by mouth Daily 30 tablet 1 07/21/2024 08/20/2024 Activegabapentin 100 mg oral capsule (20 sources)Anti-epileptic AgentStart: 11-09-2024 End: 02-59-7019dixg 1 capsule by mouth three times daily as needed for pain gabapentin (Neurontin) 100 MG capsule Indications: Bilateral hip pain Take 1 capsule (100 mg) by mouth 3 (three) times a day as needed (hip pain) 90 capsule 5 11/09/2024 05/08/2025 ActiveStart: 08-02-2024 End: 97-35-9126xnog 1 capsule by mouth at bedtimegabapentin (Neurontin) 300 MG capsule Indications: Restless leg syndrome Take 1 capsule (300 mg) bymouth at bedtime 90 capsule 1 08/02/2024 ActiveStart: 08-19-2023 End: 16-07-5180bvin 1 capsule by mouth at bedtimegabapentin (Neurontin) 300 MG capsule Indications: Acute left-sided back pain with sciatica Take 1 capsule (300 mg) by mouth at bedtime 90 capsule 1 08/19/2023 02/25/2024 Discontinued Start: 07-23-2023 End: 18-04-3731uphsbgesac (Neurontin) 100 MG capsule Indications: Acute left- sided back pain with sciatica 2 capsules three times daily as needed for pain 180 capsule 1 07/23/2023 02/25/2024 DiscontinuedlevoFLOXacin 750 mg oral tablet (2 sources)Quinolone AntimicrobialStart: 04-05-2024 End: 06-92-0805uhow 1 tablet by mouth once dailylevoFLOXacin (Levaquin) 750 MG tablet Indications: Acute non-recurrent pansinusitis Take 1 tablet (750 mg) by mouth Daily for 7 days 7 tablet 04/05/2024 04/12/2024 Activelisinopril 20 mg oral tablet (2 sources)Angiotensin Converting Enzyme InhibitorStart: 02-16-2025 End: 66-23-0829kzyj 1 tablet by mouth once dailyLisinopril 20 mg tablet Active 20 MG PO Daily February 20, 2025 11:00pm Complies with drug therapymagnesium oxide 400 mg oral tablet (6 sources)Start: 04-16-2024 End: 77-93-1222oppg 1 tablet by mouth once dailymagnesium oxide (Mag-Ox) 400 MG tablet Indications: Hot flashes Take 1 tablet (400 mg) by mouth Daily 30 tablet 2 04/16/2024 07/15/2024 Activemelatonin 10 mg oral tablet (20 sources)take 1 tablet by mouth at bedtimemelatonin 10 MG tablet Take 1 tablet by mouth at bedtime. Tgwxwi73 hr metFORMIN hydrochloride 750 mg extended release oral tablet (20 sources)BiguanideStart: 20-75-9932hrzc 1 tablet by mouth every twenty-four hours in the morningmetFORMIN XR (Glucophage-XR) 750 MG 24 hr tablet Indications: Pre-diabetes Take 1 tablet (750 mg) by mouth in the morning and 1 tablet (750 mg) before bedtime. Do not crush, chew, or split.. 60 tablet 05/13/2024 ActiveStart: 03-11-2024 End: 89-62-1527bwrj 1 tablet by mouth every twenty-four hours in the morning metFORMIN XR (Glucophage-XR) 500 MG 24 hr tablet Indications: Pre-diabetes Take 1 tablet (500 mg) by mouth in the morning and 1 tablet (500 mg) in the evening. Take with meals. Do not crush, chew, orsplit.. 60 tablet 03/31/2024 04/30/2024 ActiveStart: 07-14-2023 End: 08-79-7148sazc 1 tablet by mouth in the morningmetFORMIN (Glucophage) 500 MG tablet Indications: Glucose intolerance (impaired glucose tolerance) Take 1 tablet (500 mg) by mouth in the morning and 1 tablet (500 mg) in the evening. Take before meals. 60 tablet 07/14/2023 12/16/2023 Discontinued (Therapy completed)Start: 07-14-2023 End: 42-92-7195uyaq 1 tablet by mouth in the morningmetFORMIN (Glucophage) 850 MG tablet Indications: Glucose intolerance (impaired glucose tolerance) Take 1 tablet (850 mg) by mouth in the morning and 1 tablet (850 mg) in the evening. Take before meals. 60 tablet 07/14/2023 12/16/2023 Discontinued (Therapy completed)Start: 01-29-2023 End: 42-49-9289vmsa 1 tablet by mouth in the morningmetFORMIN (Glucophage) 1000 MG tablet Indications: Glucose intolerance (impaired glucose tolerance)Take 1 tablet (1,000 mg) by mouth in the morning and 1 tablet (1,000 mg) in the evening. Take with meals. 180 tablet 1 01/29/2023 12/16/2023 Discontinued (Therapy completed)methylPREDNISolone (5 sources)CorticosteroidStart: 06-15-2024 End: 53-56-1332xkdejyORODDMKzufwg (Medrol Dospak) 4 MG tablets Indications: Left foot pain Follow schedule on package instructions 21 tablet 06/15/2024 06/22/2024 ActiveStart: 04-17-2024 End: 46-39-6937xerjcnOGDDFEAfixys (Medrol Dospak) 4 MG tablets Indications: Acute pain of left knee Take as directed on package. 21 tablet 04/17/2024 04/24/2024 Activenebivolol 5 mg oral tablet (2 sources)Start: 11-09-2024 End: 94-21-4607rreh 1 tablet by mouth once dailynebivolol (Bystolic) 5 MG tablet Indications: Palpitations Take 1 tablet (5 mg) by mouth Daily 30 tablet 11/09/2024 ActiveOzempic, 0.25 or 0.5 MG/DOSE, 2 MG/3ML solution pen-injector (1 source)Start: 14-70-8585yqyvfi 0.5 mg by subcutaneous injection every week Ozempic, 0.25 or 0.5 MG/DOSE, 2 MG/3ML solution pen-injector INJECT 0.5 MG UNDER THE SKIN WEEKLY 01/09/2025 ActiverOPINIRole 1 mg oral tablet (20 sources)Nonergot Dopamine AgonistStart: 05-50-8299mbed 1 tablet by mouth once daily at bedtimeRopinirole 1 mg tablet Active 1 MG PO Daily at bedtime February 01, 2025 11:00pm administer 1-3 hours before bedtime Complies with drug therapyStart: 44-08-5885sMRZYUJglm (Requip) 1 MG tablet Indications: Restless Leg Syndrome One tablet at bedtime 30 tablet 11/09/2024 ActiveStart: 09-15-2023 End: 19-75-9220cAOXZYEsww (Requip) 0.5 MG tablet Indications: Restless Leg Syndrome One tablet at bedtime 90 tablet 1 08/02/2024 Activesertraline 25 mg oral tablet (5 sources)Serotonin Reuptake InhibitorStart: 02-02-2025 End: 08-50-9521xxdh 1 tablet by mouth in the morningsertraline (Zoloft) 25 MG tablet Take 25 mg by mouth in the morning. 02/02/2025 ActiveStart: 03-30-2018 End: 00-64-2965erkb 1 tablet by mouth once daily at bedtimeSertraline 100 mg tablet Discontinued 100 MG PO Daily at bedtime March 30, 2018 12:00am 2024 7:59amTirzepatide (1 source)Start: 90-77-6355Nfcpllvckub (Mounjaro) 2.5 mg/0.5 mL pen injector Active 2.5 MG SUBCUT every week 2.5 30 2024 12:00am Type 2 diabetes mellitus Type 2 diabetes mellitus without complications for 4 weeks Complies with drug csoeekk12 hr venlafaxine 37.5 mg extended release oral capsule (9 sources)Serotonin and Norepinephrine Reuptake InhibitorStart: 11-03-2023 End: 00-21-0774odla 1 capsule by mouth once dailyvenlafaxine XR (Effexor XR) 37.5 MG 24 hr capsule Indications: Recurrent major depressive disorder,in partial remission (HCC) (CMS/HCC) Take 1 capsule (37.5 mg) by mouth Daily Do not crush or chew. 30 capsule 12/16/2023 12/25/2023 Discontinued (Side effects) Start: 11-03-2023 End: 06-50-8406zmpp 1 tablet by mouth every twenty-four hours [...] tablet (2 sources)HMG-CoA Reductase InhibitorStart: 03-30-2018 End: 58-95-6673uupt 1 tablet by mouth once daily at bedtimeAtorvastatin 20 mg tablet Discontinued 20 MG PO Daily at bedtime March 30, 2018 12:00am February 02, 2025 7:58am hyperlipidemiadocusate sodium 100 mg oral capsule (2 sources)Start: 04-06-2018 End: 35-84-1184qmrn 1 capsule by mouth twice daily as needed for constipation Docusate Sodium (Colace) 100 mg capsule Discontinued 100 MG PO Twice daily as needed for constipation 60 April 06, 2018 9:46am February 02, 2025 7:58am escitalopram 5 mg oral tablet (4 sources)Serotonin Reuptake InhibitorStart: 12-25-2023 End: 31-39-3904eaum 1 tablet by mouth once dailyescitalopram (Lexapro) 5 MG tablet Indications: Recurrent major depressive disorder, in partial remission (HCC) (CMS/HCC) Take 1 tablet (5 mg) by mouth Daily 30 tablet 12/25/2023 02/25/2024 Discontinued (Therapy completed)fluconazole 150 mg oral tablet (4 sources)Azole AntifungalStart: 03-29-2024 End: 63-46-4053kfee 1 tablet by mouth oncefluconazole (Diflucan) 150 MG tablet Indications: Yeast infection of the skin Take 1 tablet (150 mg) by mouth 1 (one) time for 1 dose 1 tablet 03/29/2024 04/05/2024 Discontinued (Therapy completed) ibuprofen 600 mg oral tablet (2 sources)Nonsteroidal Anti-inflammatory DrugStart: 04-06-2018 End: 22-73-1092sgkc 1 tablet by mouth every six hours as needed for pain Ibuprofen 600 mg tablet Discontinued 600 MG PO Q6H as needed for pain 30 April 06, 2018 12:00am February 02, 2025 7:59amliothyronine sodium 0.005 mg oral tablet (1 source)l-Triiodothyronine End: 40-64-5332znqg 1 tablet by mouth once dailyliothyronine (CYTOMEL) 5 mcg tablet Take 5 mcg by mouth once daily. 0 08/01/2022 DiscontinuedComment on above:Take 5 mcg by mouth once daily.losartan potassium 100 mg oral tablet (2 sources)Angiotensin 2 Receptor BlockerStart: 03-30-2018 End: 75-50-0009duky 1 tablet by mouth once daily at bedtimeLosartan 100 mg tablet Discontinued 100 MG PO Daily at bedtime March 30, 2018 12:00am February 02, 2025 7:59am htnmeloxicam 15 mg oral tablet (9 sources)Nonsteroidal Anti-inflammatory DrugStart: 08-01-2022 End: 79-53-3202ahdu 1 tablet by mouth once dailymeloxicam (MOBIC) 15 mg tablet Indications: Erosive osteoarthritis of both hands Take 1 tablet by mouth once daily. 30 tablet 2 08/01/2022 10/30/2022 ExpiredStart: 10-14-2019 End: 27-57-1430tfra 1 tablet by mouth once dailymeloxicam (MOBIC) 7.5 mg tablet Take 1 tablet by mouth once daily. Stop all other anti-inflammatories 30 tablet 0 10/14/2019 08/01/2022 Discontinued (Changing Therapy/Dosage Form)Comment on above:Take 1 tablet by mouth once daily.Take 1 tablet by mouth once daily. Stop all other anti-inflammatoriesmetaxalone 800 mg oral tablet (1 source) End: 52-92-3961qullxpcqej (METAXALL) 800 mg tablet Take 800 mg by mouth as needed. 0 08/01/2022 DiscontinuedComment on above:Take 800 mg by mouth as needed.0.25 mg, 0.5 mg dose 1.5 ml semaglutide 1.34 mg/ml pen injector (3 sources)Start: 02-02-2025 End: 63-03-8168Qdnjvihmgjo (Ozempic) 0.25 mg or 0.5 mg(2 mg/1.5 mL) pen injector Discontinued 0.25 MG SUBCUT everyweek 1.5 0 February 03, 2025 7:14pm March 02, 2025 8:52am Type 2 diabetes mellitus Type 2 diabetes mellitus without complications for 4 weeksVeozah 45 MG tablet (2 sources)Start: 08-18-2024 End: 35-13-8923uxku 1 tablet by mouth once dailyVeozah 45 MG tablet Take 1 tablet by mouth Daily 08/18/2024 09/01/2024 Discontinued (Therapy completed) Problems Active Problems Problem ClassificationProblemDateDocumented DateEpisodic/Chronic Administrative/social admission (2 sources)Advance directive discussed with patient; Translations: [Other specified counseling]38-42-1088PoqwndjkHkgyfyk disorders (6 sources)Mixed anxiety and depressive disorder; Translations: [Other specified anxiety disorders]27-83-2303WudliqqPxqakuf dysrhythmias (2 sources)Ventricular premature depolarization; Translations: [Ventricular premature depolarization]Onset: 43-19-6470JtmrljeLtmokcb dysrhythmias (11 sources)Palpitations; Translations: [Tachycardia]Onset: EpisodicDiabetes mellitus without complication (5 sources)Type 2 diabetes mellitus; Translations: [Type 2 diabetes mellitus without complications]Onset: 107288-31-3942IqeyhyrLajxvdefm of lipid metabolism (20 sources)Mixed hyperlipidemia; Translations: [Mixed hyperlipidemia]Onset: 01-53-4353FwraislYessbvwgg hypertension (20 sources)Essential (primary) hypertension; Translations: [Hypertensive disorder]Onset: 14-98-9969EwjrqbkXoospivysdshb symptoms and ill-defined conditions (20 sources)Urge incontinence of urine; Translations: [Urge incontinence]Onset: 210212-96-9856FgwqatiAzojgzjrltucu and screening for infectious disease (1 source)Encounter for screening for human papillomavirus (HPV); Translations: [ENC SCREENING HUMAN PAPILLOMAVIRUS]Onset: 22-46-0135UsahsxxyHaptriq and fatigue (20 sources)Fatigue; Translations: [Chronic fatigue, unspecified]Onset: 082681-38-7275OmmkdipRbueiodlaj disorders (18 sources)Menopausal syndrome; Translations: [Menopausal and female climacteric states]Onset: 364792-51-8151LxeiouzKruhfbnuaxfbv mental health disorders (20 sources)Insomnia disorder related to another mental disorder; Translations: [Insomnia due to other mental disorder]Onset: 891367-20-8117DyuhhhnYmef disorders (20 sources)Recurrent major depression in partial remission; Translations: [Major depressive disorder, recurrent, in partial remission]Onset: 09-17-2022 86-09-0553KrvinomYkropev (2 sources)Candidiasis of skin; Translations: [Candidiasis of skin and nail] 14-09-1430OigxszsyMuhroukvtxmhrb (20 sources)Osteoarthritis of joint of bilateral hands; Translations: [Erosive (osteo)arthritis]Onset: 70-75-7003UwfhppsAppph aftercare (3 sources)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; 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: [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) use of non-steroidal anti-inflammatories (NSAID)]EpisodicOther connective tissue disease (3 sources)History of total knee arthroplasty; Translations: [Presence of unspecified artificial knee joint]Onset: 956557-19-3200OmqvlldCeemd connective tissue disease (2 sources)Pain in left foot; Translations: [Pain in left foot]06-15-2024 EpisodicOther diseases of bladder and urethra (20 sources)Overactive bladder; Translations: [Overactive bladder]Onset: 618278-89-6019CfyxxwqKpkmf female genital disorders (1 source)Other specified noninflammatory disorders of vagina; Translations: [OTH SPEC NONINFLAMMATORY D/O VAGINA]Onset: 90-75-2278TqsklejlOexwo hereditary and degenerative nervous system conditions (20 sources)Restless legs; Translations: [Restless legs syndrome]Onset: 493513-43-4777HqniynnUatdc liver diseases (1 source)Inflammatory liver disease, unspecified; Translations: [INFLAMMATORY LIVER DISEASE UNS]Onset: 07-72-7826UxvazmnLmsej liver diseases (20 sources)Fatty (change of) liver, not elsewhere classified; Translations: [Other chronic nonalcoholic liver disease]Onset: 58-30-4079IfymuhnJwdhh liver diseases (7 sources)Steatosis of liver; Translations: [Fatty (change of) liver, not elsewhere classified]ChronicOther liver diseases (20 sources)Inflammatory disease of liver; Translations: [Inflammatory liver disease, unspecified]Onset: 945511-69-5538AglmuznTjgch liver diseases (3 sources)Elevated liver enzymes level; Translations: [Abnormal levels of other serum enzymes]EpisodicOther liver diseases (3 sources)Abnormal levels of other serum enzymes; Translations: [Abnormal levels of other serum enzymes]Onset: 76-89-5367PfwkmwnqGpciq lower respiratory disease (2 sources)Shortness of breath; Translations: [Shortness of breath]Onset: 98-75-0714LqosrpxsRmexr nervous system disorders (20 sources)Chronic pain; Translations: [Other chronic pain]Onset: 09-17-2022 87-41-9658OqschnzPcztu non-traumatic joint disorders (2 sources)Pain in left knee; Translations: [Pain in joint, lower leg]04-17-2024 EpisodicOther non-traumatic joint disorders (1 source)Hip pain; Translations: [Pain in right hip]68-82-0393DhdogxqcRjdde nutritional; endocrine; and metabolic disorders (2 sources)Obesity; Translations: [Obesity, unspecified]ChronicOther nutritional; endocrine; and metabolic disorders (1 source)Severe obesity; Translations: [Morbid (severe) obesity due to excess calories]ChronicOther nutritional; endocrine; and metabolic disorders (20 sources)Morbid obesity; Translations: [Morbid (severe) obesity due to excess calories]Onset: 376392-39-7942PxbsnnmVoznq nutritional; endocrine; and metabolic disorders (20 sources)Body mass index 40+ - severely obese; Translations: [Body mass index (BMI) 45.0-49.9, adult]Onset: 564475-59-2474FtwaqhjBkpdk screening for suspected conditions (not mental disorders or infectious disease) (13 sources)Encounter for screening mammogram for malignant neoplasm of breast; Translations: [Encounter for screening for malignant neoplasm of cervix]Onset: 65-10-2559LikfkujvNetep upper respiratory infections (2 sources)Acute pansinusitis; Translations: [Acute pansinusitis, unspecified] 03-04-1696NdgznflvBuxtjqng codes; unclassified (20 sources)Dependence on enabling machine or device; Translations: [Dependence on other enabling machines and devices]Onset: hronic Residual codes; unclassified (20 sources)Obstructive sleep apnea syndrome; Translations: [Obstructive sleep apnea (adult) (pediatric)]Onset: 775527-66-5945TonsehmVhvulzgi codes; unclassified (1 source)Acquired absence of other specified parts of digestive tract; Translations: [ACQ ABSENCE OTH PART DIGESTV TRACT]Onset: 01-77-6843Juflmesh Spondylosis; intervertebral disc disorders; other back problems (2 sources)Low back pain; Translations: [Low back pain]27-74-7663JynovgeyEeccxze and strains (2 sources)Strain of foot; Translations: [Strain of unspecified muscle and tendon at ankle and foot level, left foot, initial encounter]24-81-9933Qlbaqaqo Unclassified (1 source)New PatientOnset: 10-30-2022 Past or Other Problems Problem ClassificationProblemDateDocumented DateEpisodic/ChronicDiabetes mellitus without complication (20 sources)Impaired glucose tolerance (oral); Translations: [Impaired glucose tolerance]Onset: 10-12-2021 Resolved: 475146-26-3593SrssbfzbYnrpf female genital disorders (20 sources)Pain in female genitalia on intercourse; Translations: [Unspecified dyspareunia]Onset: 09-17-2022 Resolved: 472795-18-8102XvyxsfwRbdbz female genital disorders (20 sources)Disorder of female genital system; Translations: [Unspecified condition associated with female genital organs and menstrual cycle]Onset: 09-17-2022 Resolved: 152552-70-0175WvorzilxQrdpa nervous system disorders (20 sources)Left-sided piriformis syndrome; Translations: [Lesion of sciatic nerve, left lower limb]Onset: 09-17-2022 Resolved: 760072-15-1896TxiqetgDagyx non-traumatic joint disorders (3 sources)Pain in right knee; Translations: [Pain in joint, lower leg]Onset: 885148-12-0416BllirtzrIndkeogx codes; unclassified (20 sources)Sleep disorder; Translations: [Sleep disorder, unspecified]Onset: 505513-56-1928HqvugywaRgwpmivw codes; unclassified (16 sources)Flushing; Translations: [Flushing]Onset: 539855-39-3145 EpisodicThyroid disorders (20 sources)Sick-euthyroid syndrome; Translations: [Sick-euthyroid syndrome] Onset: 326600-50-8843Lwfxwsux Results Test NameValueInterpretationReference RangeFacilityMM TOMOSYNTHESIS SCREENING BI on 65[place]19[place] [address] Mammography Report Signed Patient: NAIMA HERNANDEZ MR#: [id number] : 1970 Acct:[id number] Age/Sex: 54 / F ADM Date: 03/07/25 Loc: MAMMO Attending Dr: Janey Savage Ordering Physician: Janey Savage Results: Date of Service: 03/07/25 Follow Up: Procedure(s): MM tomosynthesis screening BI Accession Number(s): [id number] cc: Janey Savage; MARIBETH GALVEZ Patient Name: NAIMA HERNANDEZ MR#: [id number] : 1970 Exam Date: 03/07/2025 Ordering Doctor: [...] LOCATION: [facility] BREAST COMPOSITION: There are scattered areas [...] Signed By: 03/07/25 1100 DD/ 1059 TD/TT: Sprinkler Repair Technician:TBHRadiology, Radiologist, - 03/07/2025 [place] [address] Mammography Report Signed Patient: NAIMA HERNANDEZ MR#: [id number] : 1970 Acct:[id number] Age/Sex: 54 / F ADM Date: 03/07/25 Loc: MAMMO Attending Dr: Janey Savage Ordering Physician: Janey Savage Results: Date of Service: 03/07/25 Follow Up: Procedure(s): MM tomosynthesis screening BI Accession Number(s): [id number] cc: Janey Savage; MARIBETH GALVEZ Patient Name: NAIMA HERNANDEZ MR#: [id number] : 1970 Exam Date: 03/07/2025 Ordering Doctor: [...] LOCATION: [facility] BREAST COMPOSITION: There are scattered areas [...] Signed By: 03/07/25 1100 DD/ 1059 TD/TT: Sprinkler Repair Technician: MARII HealthcareRadiology Study observation (narrative)MARII LiuMM TOMOSYNTHESIS SCREENING BIOrdered By: Radiologist Radiology on [id number] Work Phone: Office Visiton [phone]-up [id number] Naima Hernandez 1970 Date Provider Department Center 03/07/2025 SOURAV MACIAS [facility] Family History Adopted: Yes Problem Relation Age of Onset No Known Problems Mother No Known Problems Father Family Status - Relation Status Age at Mother Father Level of Service:[address] [place] OFFICE/OUTPATIENT ESTABLISHED LOW MDM 20 MIN Reason for Visit and Comments: Follow-up [731352] - Patient is here today for a follow up stress test and Echo. Patient denies chest pain,edema. Patient complains of SOB/DUARTE, occasional palpitations/racing heart, lightheaded/dizziness with position changes Hypertension [014733] Hyperlipidemia [182] Shortness of Breath [158444] - SOB/DUARTE with going up and downstairs. Palpitations [729816] - Palpitations/racing hearts Dizziness [199271] - Dizziness/lightheadedNormalUniversity of Hill Country Memorial HospitalHbA1c HPLC (Bld) [Mass fraction]Ordered By: Maribeth Galvez on 25-02-2359DhG9u (Bld) [Mass fraction]6.5 %[facility] Office Visiton 73-28-8357Bpaoke-up [id number] Naima Hernandez 1970 Provider Department Center 02/16/2025 SOURAV MACIAS NGUYỄN [facility] Family History Adopted: Yes Problem Relation Age of Onset No Known Problems Mother No Known Problems Father Family Status - Relation Status Age at Mother Father Level of Service:57997 [place] OFFICE/OUTPATIENT NEW HIGH MDM 60 MINUTES Reason for Visit and Comments: New Patient [632] - Patient is here today to establish care with cardiology. Patient states she recently had a 30 day holter and a 72 hour holter, along with a stress test. Patient denies chest pain, Hypertension [374892] Hyperlipidemia [182] Shortness of Breath [] - Sob/duarte with and without activity Palpitations [] - Racing heart Fatigue [46] Dizziness [] - Dizziness/lightheaded with position changesNormalUniversity of Hill Country Memorial HospitalNM KIMBERLYN PERF SPECT REST STRon 92-81-5523W[address] [address] Nuclear Medicine Report Signed Patient: NAIMA HERNANDEZ MR#: [id number] : 1970 Acct:[id number] Age/Sex: 54 / F ADM Date: 11/03/24 Loc: NM Attending Dr: ENRIQUE ALBA Ordering Physician: ENRIQUE ALBA Date of Service: 11/03/24 Procedure(s): NM kimberlyn perf SPECT rest str Accession Number(s): [id number] cc: ENRIQUE ALBA Patient Name: NAIMA HERNANDEZ MR#: [id number] : 1970 Exam Date: 11/03/2024 Ordering Doctor: [...] the study was pending per attending physician [facility]. For more details, please see separate [...] Signed By: 11/04/24 1615 DD/ 1614 TD/TT: Sprinkler Repair Technician:TBHRadiology, Radiologist, - 11/04/2024 [place] [address] Nuclear Medicine Report Signed Patient: NAIMA HERNANDEZ MR#: [id number] : 1970 Acct:[id number] Age/Sex: 54 / F ADM Date: 11/03/24 Loc: NM Attending Dr: ENRIQUE ALBA Ordering Physician: ENRIQUE ALBA Date of Service: 11/03/24 Procedure(s): NM kimberlyn perf SPECT rest str Accession Number(s): [id number] cc: ENRIQUE ALBA Patient Name: NAIMA HERNANDEZ MR#: [id number] : 1970 Exam Date: 11/03/2024 Ordering Doctor: [...] the study was pending per attending physician [facility]. For more details, please see separate [...] M.D. Signed By: 11/04/24 1615 DD/ TD/TT: Sprinkler Repair Technician: [facility] HospitalRadiology Study observation (narrative)[facility] KIMBERLYN PERF SPECT REST STROrdered By: Radiologist Radiology on 47-62-7200IALIChildren's Mercy Hospital Work Phone: MLR HEMOGLOBIN A1Con 88-62-7062Ubpvaao [Mass/Vol]166 mg/dLNOPike County Memorial HospitalNkmnclncieTwH9n (Bld) [Mass fraction]7.4 %High4.5 - 6.2 %[facility] Mer[facility] HospitalComment on above:ADA RECOMMENDED LIMIT 4.0 - 6.0 ADA THERAPEUTIC TARGET < 7.0 ACTION SUGGESTED > 7.0 Interpretation and review of laboratory resultsAbnormalChildren's Mercy HospitalCLINISYNC [facility] HospitalALL CBC WITH AUTO DIFFon 08-37-2203PNSZCDXBH ABSOLUTE NCFP1IJUY HealthcareBasophils/100 WBC (Bld)0.6 %0.2 - 2.0 %NOM HealthcareEosinophils/100 WBC (Bld)1.8 %0.9 - 7.0 %[facility] Mercy HospitalErythrocyte distribution width (RBC) [Ratio]13.7 %11.0 - 15.0 %[facility] Mer[facility] HospitalHematocrit (Bld) [Volume fraction]43.9 %36.0 - 48.0 %[facility] HospitalHemoglobin (Bld) [Mass/Vol]14.8 g/dL12.0 - 16.0 g/dLNOPike County Memorial HospitalIMMATURE GRANULOCYTES ABS AUTO0.02NOPike County Memorial HospitalImmature granulocytes/100 WBC (Bld)0.4 %0.0 - 0.5 %[facility] HospitalLYMPHOCYTES ABSOLUTE AUTO1.4NOMS HealthcareLymphocytes/100 WBC (Bld)26.3 %20.5 - 60.0 %[facility] Mercy HospitalMCH (RBC) [Entitic mass]28.1 pg26.7 - 34.0 pgNOUniversity of Missouri Health CareHC (RBC) [Mass/Vol]33.7 g/dL29.9 - 35.2 g/dLNOPike County Memorial HospitalMCV (RBC) [Entitic vol]83.3 fL 81.0 - 99.0 fLNONM HealthcareMONOCYTES ABSOLUTE AUTO0.3NONM Healthcare Monocytes/100 WBC (Bld)6.2 %1.7 - 12.0 %NOMS HealthcareNEUTROPHILS ABSOLUTE AUTO 3.3NONM HealthcareNeutrophils/100 WBC (Bld)64.7 %43.0 - 75.0 %[facility] Platelet mean volume (Bld) [Entitic vol]10 fL9.5 - 13.5 fLNOPike County Memorial HospitalTBH EO #0.1NOMS [facility] HospitalTB [id number] [facility] HospitalTB RBC5.27NOProgress [facility] WBC5.1 [facility] Mercy HospitalCLINISYNCNOMS HealthcareXR Foot - left 3 Viewson 97-68-9074BWLL: XR FOOT 3+ VIEWS LEFT HISTORY: Pain [...] DA PORTER MD at 16-Jun-2024 09:39:[address] [facility] IMAGINGDa mccallum MD - 06/16/2024 EXAM: [...] DA PORTER MD at 16-Jun-2024 09:39:44 AM [facility] NOMS HealthcareXR Foot - left 3 ViewsOrdered By: Da Porter on 68-12-2791PFQYChildren's Mercy Hospital Work Phone: XR FOOT 3+ VIEWS LEFTon 13-58-2556KO FOOT 3+ VIEWS LEFTEXAM: XR FOOT 3+ [...] DA PORTER MD at 16-Jun-2024 09:39:44 AM All-[place] TeleradiologyNormalNot AvailableXR Foot - left 3 Viewson 06-15-2024 Radiology Study observation (narrative)NOMS HealthcareXR Knee - left 3 Viewson 88-85-2053HC KNEE 3 VIEWS LEFT Reason for exam: [...] left 3 ViewsOrdered By: Messi Carballo on 71-18-9544EJLS Healthcare Work Phone: XR KNEE 3 VIEWS LEFTon 01-52-9058TP KNEE 3 VIEWS LEFT XR KNEE 3 [...] Radiologist.NormalNot AvailableXR Knee - left 3 Viewson 75-78-7027Zmyhlhfph Study observation (narrative)NOMS HealthcareIGP,APTIMA HPV,AGE GDLNon 04-03-2024 AGE GDLN ACOG TESTINGNote.[facility] HealthcareComment on above:TESTS RESULT FLAG UNITS REF RANGE LAB Clinician Provided Cytology Information Source.............Cervix;Endocervix No. of containers..01 ThinPrep Vial Age Algo ACOG Annabelle... 30-65 01 FLAG LEGEND: L-Low Normal,H-High Normal,LL-Alert Low,HH-Alert High <-Panic Low,>-Panic High,A-Abnormal,AA-Critical Abnormal Performed at: 01 =[address] [facility] [place] [address] Grace Ramos MD, HPV APTIMANegativeNegativeNOMS HealthcareComment on above:This nucleic acid amplification test detects fourteen high- risk HPV types (16,18,31,33,35,39,45,51,52,56,58,59,66,68) without differentiation. Performed at: = - [facility] [id number] [employer] Researcher: Grace Ramos MD, Phone: [phone] Performed at: - [facility] [id number] Sw[employer] Genetics Researcher: Grace Ramos MD, Phone: [phone] IGP, APTIMA HPV, RFX 16/18,45Note.NOMS HealthcareComment on above:TESTS RESULT FLAG UNITS REF RANGE LAB DIAGNOSIS: 02 NEGATIVE FOR INTRAEPITHELIAL LESION OR MALIGNANCY. Specimen adequacy: 02 Satisfactory for evaluation. Endocervical and/or squamous metaplastic cells (endocervical component) are present. Performed by: Nathalia Ellis, Felled Seam Operator Chainstitch (ASCP) . 02 Note: Note 02 The [...] High,A-Abnormal,AA-Critical Abnormal Performed at: 02 [address] [facility] [address] [place] [address] Grace Ramos MD, BRUSH-SPATULA CERVIX ENDOCERVIX CLINISYNCNONM HealthcareALL LIPID PROFILE (FASTING)on 06-14-3732UXJL HDL RATIO 4.5NONM HealthcareComment on above:3.3 - 4.4 LOW RISK 4.4 - 7.1 AVERAGE RISK 7.1 - 11.0 MODERATE RISK >11.0 HIGH RISK Cholesterol [Mass/Vol]232 mg/dLHighNINF - 200 mg/dLNONM HealthcareCholesterol in HDL [Mass/Vol]51 mg/dL40 - 60 mg/dLNONM HealthcareComment on above:> or =60 mg/dl - LOW CARDIOVASCULAR RISK <40 mg/dl - HIGH CARDIOVASCULAR RISK Magnesium [Mass/Vol]122 mg/dLNONM HealthcareComment on above:<100 mg/dl OPTIMAL 100-129 mg/dl NEAR OR ABOVE OPTIMAL 130-159 mg/dl BORDERLINE HIGH 160-189 mg/dl HIGH >190 mg/dl VERY HIGH Magnesium [Mass/Vol]59.2 mg/dLNONM HealthcareTriglyceride [Mass/Vol]296 mg/dL HighNINF - 150 mg/dLNONM HealthcareCCF CMP (CMP) (FOR REMOTE [facility] USE)on 60-92-3675Ssthhuo [Mass/Vol]3.9 g/dL3.4 - 5.0 g/dLNONM HealthcareALBUMIN GLOBULIN RATIO1.1NTHE [facility]IL[facility] HealthcareALP [Catalytic activity/Vol]102 U/L46 - 116 U/L [...] HealthcareGlobulin (S) [Mass/Vol]3.6 g/dL NOMS HealthcareGlucose [Mass/Vol]112 mg/qPSwda36 - 106 mg/dLNONM Healthcare Potassium [Moles/Vol]4 mmol/L3.5 - 5.1 mmol/LNOMS HealthcareProtein [Mass/Vol] 7.5 g/dL6.4 - 8.2 g/dLNONM HealthcareSodium [Moles/Vol]145 mmol/L136 - 145 mmol/LNOMS HealthcareTBH EGFR-NON AF INLHVHVG16Vat>=60 mL/min/1.73m 2NOMS HealthcareUrea nitrogen [Mass/Vol]13 mg/dL7.0 - 18.0 mg/dLNONM HealthcareUrea nitrogen/Creatinine [Mass ratio]13.3 mg/mgNOMS HealthcareMM TOMOSYNTHESIS SCREENING BIon 14-60[place]6146[place]vv[place] [address] Mammography Report Signed Patient: Naima Hernandez MR#: [id number] : 1970 Acct:[id number] Age/Sex: 53 / F ADM Date: 03/05/24 Loc: MAMMO Attending Dr: ENRIQUE ALBA Ordering Physician: ENRIQUE ALBA Results: Date of Service: 03/05/24 Follow Up: Procedure(s): MM tomosynthesis screening BI Accession Number(s): [id number] cc: ENRIQUE ALBA Patient Name: NAIMA HERNANDEZ MR#: [id number] : 1970 Exam Date: 03/05/2024 Ordering Doctor: [...] LOCATION: [facility] BREAST COMPOSITION: There are scattered areas [...] Signed By: 03/05/24 1105 DD/ 1104 TD/TT: Sprinkler Repair Technician:TBHRadiology, Radiologist, - 03/05/2024 [place] [address] Mammography Report Signed Patient: Naima Hernandez MR#: [id number] : 1970 Acct:[id number] Age/Sex: 53 / F ADM Date: 03/05/24 Loc: MAMMO Attending Dr: ENRIQUE ALBA Ordering Physician: ENRIQUE ALBA Results: Date of Service: 03/05/24 Follow Up: Procedure(s): MM tomosynthesis screening BI Accession Number(s): [id number] cc: ENRIQUE ALBA Patient Name: NAIMA HERNANDEZ MR#: [id number] : 1970 Exam Date: 03/05/2024 Ordering Doctor: [...] LOCATION: [facility] BREAST COMPOSITION: There are scattered areas [...] Signed By: 03/05/24 1105 DD/ 1104 TD/TT: Sprinkler Repair Technician: [facility] HospitalRadiology Study observation (narrative)[facility] TOMOSYNTHESIS SCREENING BIOrdered By: Radiologist Radiology on 14-39-3000BTWIChildren's Mercy Hospital Work Phone: No Panel Informationon 21-25-9225Urqicxcxnmirtn and review of laboratory resultsAbnormalChildren's Mercy HospitalCLINISYNFormerly [facility] DarlingtonXR DEXA AXIAL SKELETONon 40-62-0718Ezc[address] [address] XRay Report Signed Patient: Naima Hernandez MR#: [id number] : 1970 Acct:[id number] Age/Sex: 53 / F ADM Date: 03/05/24 Loc: MAMMO Attending Dr: ENRIQUE ALBA Ordering Physician: ENRIQUE ALBA Date of Service: 03/05/24 Procedure(s): XR DEXA axial skeleton Accession Number(s): [id number] cc: ENRIQUE ALBA [address] [place] [address] Patient Name: NAIMA HERNANDEZ MRN: [id number] date: 1970 Sex: F Assigned Patient Location: [facility] Current Patient Location: [facility] Accession/Order Number: [id number] Exam Date: 03/05/2024 07:00 Report Date: 03/05/2024 [...] prevention and treatment of osteoporosis. Osteoporos Int. 2021;33(10):9246-9721. doi: 10.1007/a30522-532-96607-u. Epub 2021Aug 23. Erratum in: Osteoporos Int. 2021Nov 22;: PMID: 99075248; PMCID: UBO5482711. Electronically authenticated by: MILA STARKS Date: 03/05/2024 07:37 Dictated By: Mila Starks M.D. Signed By: 03/05/24738 DD/ 6 TD/TT: Sprinkler Repair Technician:TBHRadiology, Radiologist, - 03/05/2024 [place] [address] XRay Report Signed Patient: Naima Hernandez MR#: [id number] : 1970 Acct:[id number] Age/Sex: 53 / F ADM Date: 03/05/24 Loc: MAMMO Attending Dr: ENRIQUE ALBA Ordering Physician: ENRIQUE ALBA Date of Service: 03/05/24 Procedure(s): XR DEXA axial skeleton Accession Number(s): [id number] cc: ENRIQUE ALBA [facility] [place] [id number] Patient Name: NAIMA HERNANDEZ MRN: [id number] date: 1970 Sex: F Assigned Patient Location: [facility] Current Patient Location: [facility] Accession/Order Number: [id number] Exam Date: 03/05/2024 07:00 Report Date: 03/05/2024 [...] prevention and treatment of osteoporosis. Osteoporos Int. 2021;33(10):7583-6298. doi: 10.1007/k07949-989-63712-k. Epub 2021Aug 23. Erratum in: Osteoporos Int. 2021Nov 22;: PMID: 06262050; PMCID: [id number]. Electronically authenticated by: MILA STARKS Date: 03/05/2024 07:37 Dictated By: Mila Starks M.D. Signed By: 03/05/24738 DD/ 6 TD/TT: Sprinkler Repair Technician: MARII HealthcareRadiology Study observation (narrative)MARII HealthcareXR DEXA AXIAL SKELETONOrdered By: Radiologist Radiology on 04-90-2779CCWB Healthcare Work Phone: cNOVon 09-75-8841LJAVBsidps Visit (GASTAV) NAIMA HERNANDEZ ([id number]) 1970 F Date Time Provider Department 10/30/22 1:00 PM RADHA ABDUL During your visit today, we recorded the following information about you: Weight Height 120.2 kg 1.6 m Radha Richey MD 10/30/2022 2:34 PM Signed [facility]atology [facility] Mindy Richey MD, FACG, FAASLD Director, [facility] Consult Requested By: Mike Salgado [address] [facility] [address] for evaluation of her fatty liver .. 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 Please feel free to contact me if I can be of further assistance to you {I spent 45 minutes in the visit, with more than 50% of the total plcj-nc-fwqk time of the visit in counseling / coordination of care. Referring Provider: MIKE SALGADO [[id number]] Allergies As of Date: 10/30/2022 (No Known Allergies) Date Reviewed: 10/30/2022 Reviewed by: RIVER Stuart - Fully Assessed Reason for Visit: New Patient [172] Cmt: Consult for fatty liver Primary Visit Diagnosis:Fatty liver [K76.0] Other Visit Diagnosis:Class 3 severe obesity due to excess calories in adult, unspecified BMI, unspecified whether serious comorbidity present (HCC) [E66.01] Order(s):CELIAC SCREEN WITH REFLEX [SQCELSCR] Order #: [id number] FUTURE HEPATITIS A ANTIBODY, IGG [SQAHAVG] Order #: [id number] FUTURE (more content not included)...NormalSumma Health Barberton Campus 26-93-5184VJLZLnwjrk Visit (VIDAL) NAIMA HERNANDEZ ([id number]) 1970 F Date Time Provider Department 08/01/22 3:00 PM MARIAJOSE STALLWORTH During your visit today, we recorded the following information about you: Pulse Blood pressure 101/minute 177/81 Mariajose Stallworth MD 08/01/2022 3:52 PM Signed Rheumatology Outpatient Clinic Date of Service: 08/01/2022 Patient: Naima Hernandez Medical Record: [id number] Primary Care Physician: Zeferino Flores Last Rheumatology visit: None at [facility] History of Present Illness Naima Hernandez is [...] knee pain 08/26/2012 OA BMI 40.0-44.9, adult ([facility]) BMI 42 Mixed hyperlipidemia Hyperlipidemia Past Surgical History PAST SURGICAL HISTORY Procedure Laterality Date DELIVERY ONLY , low transverse COLONOSCOP W/ OR W/O [facility] SPEC Colonoscopy EGD EXTRACTION, ERUPTED TOOTH OR EXPOSED ROOT (ELEVATION AND/OR FORCEPS REMOVAL) KNEE SCOPE,MENISECTOMY,MED OR LAT Bilateral Family History No family history on file. Social History Social History Tobacco Use Smoking status: Never Smokeless tobacco: Never Substance Use Topics Alcohol use: No Drug use: No C (more content not included)...NormalH[facility] 30-18-8925Aaxgszt (P) [Moles/Vol]19 umol/OHtrdie66-56IxvlyybhjMercer County Community HospitalComment on above:Order Comment: Reason for Exam Elevated liver enzymes;Fatty liverResult Comment: PERFORMED BY: [place] [address] PATHOLOGIST SURGICAL ONCOLOGIST DAGMAR CANO M.D.Performed By: #### CBC, CMP, AMM, ADAL, PT, LIPID #### [place] [address] USAComplete Blood Count Auto Diffon 02-06-9321Hlyizhxcl (Bld) [#/Vol]0.0 10*3/uLNormal0.0-0.2FAdams County Regional Medical CenterComment on above:Order Comment: Reason for Exam Elevated liver enzymes;Fatty liverResult Comment: PERFORMED BY: [place] [address] PATHOLOGIST SURGICAL ONCOLOGIST DAGMAR CANO M.D.Performed By: #### CBC, CMP, AMM, ADAL, PT, LIPID #### [place] [address] USABasophils/100 WBC (Bld)0.4 %Normal.[facility] County Community HospitalComment on above:Order Comment: Reason for Exam Elevated liver enzymes;Fatty liverPerformed By: #### CBC, CMP, AMM, ADAL, PT, LIPID #### [place] [address] USAEosinophils (Bld) [#/Vol]0.1 10*3/uLNormal0.0-0.45 [facility] HospitalComment on above:Order Comment: Reason for Exam Elevated liver enzymes;Fatty liverPerformed By: #### CBC, CMP, AMM, ADAL, PT, LIPID #### [place] [address] USAEosinophils/100 WBC (Bld)1.1 %Normal.[facility] Community HospitalComment on above:Order Comment: Reason for Exam Elevated liver enzymes;Fatty liverPerformed By: #### CBC, CMP, AMM, ADAL, PT, LIPID #### [facility] [address] [place] [address] USAErythrocyte distribution width (RBC) [Ratio]14.6 %Normal 11.9-15.3FAdams County Regional Medical CenterComment on above:Order Comment: Reason for Exam Elevated liver enzymes;Fatty liverPerformed By: #### CBC, CMP, AMM, ADAL, PT, LIPID #### [facility] [address] [place] [address] USAHematocrit (Bld) [Volume fraction]45.3 %Xlqthe61.0-46.4 [facility] HospitalComment on above:Order Comment: Reason for Exam Elevated liver enzymes;Fatty liverPerformed By: #### CBC, CMP, AMM, ADAL, PT, LIPID #### [place] [address] USAHemoglobin (Bld) [Mass/Vol]15.2 g/kFYnrovr48.8-15.4 [facility] HospitalComment on above:Order Comment: Reason for Exam Elevated liver enzymes;Fatty liverPerformed By: #### CBC, CMP, AMM, ADAL, PT, LIPID #### [place] [address] USALymphocytes (Bld) [#/Vol]1.6 10*3/uLNormal1.00-4.8 [facility] HospitalComment on above:Order Comment: Reason for Exam Elevated liver enzymes;Fatty liverPerformed By: #### CBC, CMP, AMM, ADAL, PT, LIPID #### [place] [address] USALymphocytes/100 WBC (Bld)26.9 %Normal.[facility] Community HospitalComment on above:Order Comment: Reason for Exam Elevated liver enzymes;Fatty liverPerformed By: #### CBC, CMP, AMM, ADAL, PT, LIPID #### [place] [address] USAMCH (RBC) [Entitic mass]27.3 hwIbxvfl24.7-34.3FAdams County Regional Medical CenterComment on above:Order Comment: Reason for Exam Elevated liver enzymes;Fatty liverPerformed By: #### CBC, CMP, AMM, ADAL, PT, LIPID #### [facility] [address] [place] [address] USAMCV (RBC) [Entitic vol]81.5 cNRwviqv75-112BmmuwkgtxMercer County Community HospitalComment on above:Order Comment: Reason for Exam Elevated liver enzymes;Fatty liverPerformed By: #### CBC, CMP, AMM, ADAL, PT, LIPID #### [facility] [address] [place] [address] USAMean Corpuscular HGB Conc33.5 g/zMJqzoki24.0-35.0[facility] HospitalComment on above:Order Comment: Reason for Exam Elevated liver enzymes;Fatty liverPerformed By: #### CBC, CMP, AMM, ADAL, PT, LIPID #### [facility] [address] [place] [address] USAMonocytes (Bld) [#/Vol]0.4 10*3/uLNormal0.0-0.8[facility] Community HospitalComment on above:Order Comment: Reason for Exam Elevated liver enzymes;Fatty liverPerformed By: #### CBC, CMP, AMM, ADAL, PT, LIPID #### [facility] [address] [place] [address] USAMonocytes/100 WBC (Bld)6.3 %Normal.[facility] Community HospitalComment on above:Order Comment: Reason for Exam Elevated liver enzymes;Fatty liverPerformed By: #### CBC, CMP, AMM, ADAL, PT, LIPID #### [facility] [address] [place] [address] USANeutrophils (Bld) [#/Vol]3.9 10*3/uLNormal1.8-7.7FAdams County Regional Medical CenterComment on above:Order Comment: Reason for Exam Elevated liver enzymes;Fatty liverPerformed By: #### CBC, CMP, AMM, ADAL, PT, LIPID #### [facility] [address] [place] [address] USANeutrophils/100 WBC (Bld)65.3 %Normal.[facility] Community HospitalComment on above:Order Comment: Reason for Exam Elevated liver enzymes;Fatty liverPerformed By: #### CBC, CMP, AMM, ADAL, PT, LIPID #### [facility] [address] [place] [address] USANucleated RBC/100 WBC (Bld) [Ratio]0.2 %Normal0-0.5 [facility] HospitalComcorewell health blodgett hospital on above:Order Comment: Reason for Exam Elevated liver enzymes;Fatty liverPerformed By: #### CBC, CMP, AMM, ADAL, PT, LIPID #### [facility] [address] [place] [address] USAPlatelet mean volume (Bld) [Entitic vol]8.2 fLNormal 6.3-10.7FAdams County Regional Medical CenterComment on above:Order Comment: Reason for Exam Elevated liver enzymes;Fatty liverPerformed By: #### CBC, CMP, AMM, ADAL, PT, LIPID #### [facility] [address] [place] [address] USAPlatelets (Bld) [#/Vol]282 10*3/mQDrajbb714-897VxeljthqnMercer County Community HospitalComment on above:Order Comment: Reason for Exam Elevated liver enzymes;Fatty liverPerformed By: #### CBC, CMP, AMM, ADAL, PT, LIPID #### [facility] [address] [place] [address] USARBC (Bld) [#/Vol]5.56 10*6/uLHigh3.60-5.00Mer[facility] County Community HospitalComment on above:Order Comment: Reason for Exam Elevated liver enzymes;Fatty liverPerformed By: #### CBC, CMP, AMM, ADAL, PT, LIPID #### [facility] [address] [place] [address] USAWBC (Bld) [#/Vol]5.9 10*3/uLNormal4.5-11.0[facility] Community HospitalComcorewell health blodgett hospital on above:Order Comment: Reason for Exam Elevated liver enzymes;Fatty liverPerformed By: #### CBC, CMP, AMM, ADAL, PT, LIPID #### [facility] [address] [place], [place] [address] USAComprehensive Metabolic Panelon 00-61-6318Adiphyl [Mass/Vol]4.4 g/dLNormal3.2-5.5FAdams County Regional Medical CenterComment on above:Order Comment: Reason for Exam Elevated liver enzymes;Fatty liverPerformed By: #### CBC, CMP, AMM, ADAL, PT, LIPID #### [facility] [address] [place] [address] USAAlbumin/Globulin [Mass ratio]1.6 {ratio}Kindred Hospital DaytonComment on above:Order Comment: Reason for Exam Elevated liver enzymes;Fatty liverPerformed By: #### CBC, CMP, AMM, ADAL, PT, LIPID #### [place] [address] USAALP [Catalytic activity/Vol]75 U/KDtewky25-65HfixfecwqMercer County Community HospitalComment on above:Order Comment: Reason for Exam Elevated liver enzymes;Fatty liverPerformed By: #### CBC, CMP, AMM, ADAL, PT, LIPID #### [facility] [address] [place] [address] USAALT [Catalytic activity/Vol]71 U/STfvx89-74ZbdlubgtjMercer County Community HospitalComment on above:Order Comment: Reason for Exam Elevated liver enzymes;Fatty liverPerformed By: #### CBC, CMP, AMM, ADAL, PT, LIPID #### [facility] [address] [place] [address] USAAnion gap [Moles/Vol]11.4 mmol/LNormal6.0-15.0[facility] Community HospitalComment on above:Order Comment: Reason for Exam Elevated liver enzymes;Fatty liverPerformed By: #### CBC, CMP, AMM, ADAL, PT, LIPID #### [facility] [address] [place] [address] USAAST [Catalytic activity/Vol]51 U/RWqff29-71YhrblfvzrMercer County Community HospitalComment on above:Order Comment: Reason for Exam Elevated liver enzymes;Fatty liverPerformed By: #### CBC, CMP, AMM, ADAL, PT, LIPID #### [address] [place] [address] USABilirubin [Mass/Vol]0.7 mg/dLNormal0.3-1.2FAdams County Regional Medical CenterComment on above:Order Comment: Reason for Exam Elevated liver enzymes;Fatty liverPerformed By: #### CBC, CMP, AMM, ADAL, PT, LIPID #### [facility] [address] [place] [address] USACalcium [Mass/Vol]9.3 mg/dLNormal8.2-10.2FAdams County Regional Medical CenterComment on above:Order Comment: Reason for Exam Elevated liver enzymes;Fatty liverPerformed By: #### CBC, CMP, AMM, ADAL, PT, LIPID #### [facility] [address] [place] [address] USAChloride [Moles/Vol]102 mmol/HYankjw80-101GwzohhmylMercer County Community HospitalComment on above:Order Comment: Reason for Exam Elevated liver enzymes;Fatty liverPerformed By: #### CBC, CMP, AMM, ADAL, PT, LIPID #### [facility] [address] [place] [address] USACO2 [Moles/Vol]25.6 mmol/EIhyxkq58.0-30.0[facility] County Community HospitalComment on above:Order Comment: Reason for Exam Elevated liver enzymes;Fatty liverPerformed By: #### CBC, CMP, AMM, ADAL, PT, LIPID #### [facility] [address] [place] [address] USACreatinine [Mass/Vol]0.78 mg/dLNormal0.44-1.03Mercer County Community HospitalComment on above:Order Comment: Reason for Exam Elevated liver enzymes;Fatty liverPerformed By: #### CBC, CMP, AMM, ADAL, PT, LIPID #### [facility] [address] [place] [address] USAEstimated GFR ( Daphne> 60NormalMercer County Community HospitalComment on above:Order Comment: Reason for Exam Elevated liver enzymes;Fatty liverResult Comment: GFR estimated reference range: According to KDOQI guidelines, <60 ml/min/1.73m2 is sufficient to diagnose a patient with chronic kidney disease.Performed By: #### CBC, CMP, AMM, ADAL, PT, LIPID #### [facility] [address] [place] [address] USAEstimated GFR (Non- Am> 60NoLake County Memorial Hospital - WestComment on above:Order Comment: Reason for Exam Elevated liver enzymes;Fatty liverPerformed By: #### CBC, CMP, AMM, ADAL, PT, LIPID #### [facility] [address] [place] [address] USAGlobulin (S) [Mass/Vol]2.7 g/dLNoLake County Memorial Hospital - WestComment on above:Order Comment: Reason for Exam Elevated liver enzymes;Fatty liverPerformed By: #### CBC, CMP, AMM, ADAL, PT, LIPID #### [place] [id number] USAGlucose [Mass/Vol]96 mg/qDYqjgob88-780WgyptpukiMercer County Community HospitalComment on above:Order Comment: Reason for Exam Elevated liver enzymes;Fatty liverResult Comment: Random Glucose Reference Range is dependent on time and content of last meal. Glucose of more than 200 mg/dL in a nonstressed, ambulatory subject supports the diagnosis of Diabetes Mellitus. ADA recommended reference rangePerformed By: #### CBC, CMP, AMM, ADAL, PT, LIPID #### [place] [address] USAPotassium [Moles/Vol]4.0 mmol/LNormal3.5-5.1FAdams County Regional Medical CenterComment on above:Order Comment: Reason for Exam Elevated liver enzymes;Fatty liverPerformed By: #### CBC, CMP, AMM, ADAL, PT, LIPID #### [facility] [address] [place] [address] USAProtein [Mass/Vol]7.1 g/dLNormal6.1-7.9Mer[facility] County Community HospitalComment on above:Order Comment: Reason for Exam Elevated liver enzymes;Fatty liverPerformed By: #### CBC, CMP, AMM, ADAL, PT, LIPID #### [facility] [address] [place] [address] USASodium [Moles/Vol]135 mmol/ZHok418-922PkrmutkdgMercer County Community HospitalComment on above:Order Comment: Reason for Exam Elevated liver enzymes;Fatty liverPerformed By: #### CBC, CMP, AMM, ADAL, PT, LIPID #### [facility] [address] [place] [id number] USAUrea nitrogen [Mass/Vol]11 mg/dLNormal9-23Mer[facility] County Community HospitalComment on above:Order Comment: Reason for Exam Elevated liver enzymes;Fatty liverPerformed By: #### CBC, CMP, AMM, ADAL, PT, LIPID #### [facility] [address] [place] [id number] USAFerritinon 57-76-2016Zzfzdniy [Mass/Vol]127.6 ng/mLNormal 11-306.8Mer[facility] County Community HospitalComment on above:Order Comment: Reason for Exam Elevated liver enzymes;Fatty liverPerformed By: #### CBC, CMP, AMM, ADAL, PT, LIPID #### [facility] [address] [place] [id number] USALipid Panelon [id number] [Mass/Vol]226 mg/dL Rita112-833LggfsmehjMercer County Community HospitalComment on above:Order Comment: Reason for Exam Elevated liver enzymes;Fatty liverResult Comment: Chol less than 200 mg/dl low risk Chol 201-239 mg/dl borderline risk Chol 240 mg/dl and greater high riskPerformed By: #### CBC, CMP, AMM, ADAL, PT, LIPID #### [facility] [address] [place] [id number] USACholesterol in HDL [Mass/Vol]50 mg/iGQuqahu38-02TtaghpbqzMercer County Community HospitalComment on above:Order Comment: Reason for Exam Elevated liver enzymes;Fatty liverResult Comment: HDL CHOL ATP-III CLASSIFICATION Cardiovascular Risk HDL > or equal to 60 mg/dL LOW HDL < 40 mg/dL HIGHPerformed By: #### CBC, CMP, AMM, ADAL, PT, LIPID #### [facility] [address] [place] [address] USACholesterol.total/Cholesterol in HDL [Mass ratio]4.5 {ratio}Normal<5.0Mercer County Community HospitalComment on above:Order Comment: Reason for Exam Elevated liver enzymes;Fatty liverResult Comment: PERFORMED BY: [address] [address] PATHOLOGIST SURGICAL ONCOLOGIST DAGMAR CANO M.D.Performed By: #### CBC, CMP, AMM, ADAL, PT, LIPID #### [facility] [address] [place] [address] USALDL Cholesterol,Peiojczqxa008 mg/dLHigh0-100Mer[facility] County Community HospitalComment on above:Order Comment: Reason for Exam Elevated liver enzymes;Fatty liverResult Comment: LDL ATP III CLASSIFICATION LDL less than 100 mg/dL Optimal LDL 100-129 mg/dL Near or above optimal LDL 130-159 mg/dL Borderline high LDL 160-189 mg/dL High LDL greater than 189 mg/dL Very highPerformed By: #### CBC, CMP, AMM, ADAL, PT, LIPID #### [address] [address] USATriglyceride w/Iwbejj971 mg/eWEjws35-464ZvftufoxiMercer County Community HospitalComment on above:Order Comment: Reason for Exam Elevated liver enzymes;Fatty liverResult Comment: TRIG ATP III CLASSIFICATION TRIG less than 150 mg/dL Normal TRIG 150-199 mg/dL Borderline high TRIG 200-500 mg/dL High TRIG greater than 500 mg/dL Very high Standard traceable to the Center for Disease Conrtrol and Prevention (CDC) test method.Performed By: #### CBC, CMP, AMM, ADAL, PT, LIPID #### [facility] [address] [place] [address] USAVLDL NRAZWPFYXUO21 mg/dLNormalMercer County Community HospitalComment on above:Order Comment: Reason for Exam Elevated liver enzymes;Fatty liverPerformed By: #### CBC, CMP, AMM, ADAL, PT, LIPID #### [facility] [address] [place] [address] USAProthrombin Time INRon [id number] Coag (PPP) [Relative time]1.1 {INR}Kindred Hospital DaytonComment on above:Order Comment: Reason for Exam Elevated [...] heart valves: 3 - 4.5 PERFORMED BY: [place] [address] PATHOLOGIST SURGICAL ONCOLOGIST DAGMAR CANO M.D.Performed By: #### CBC, CMP, AMM, ADAL, PT, LIPID #### [facility] [address] [place] [address] USAPT Coag (PPP) [Time]12.1 sNormal9.0-12.9Mer[facility] County Community HospitalComment on above:Order Comment: Reason for Exam Elevated liver enzymes;Fatty liverPerformed By: #### CBC, CMP, AMM, ADAL, PT, LIPID #### [facility] [address] [place], [place] [address] USAMG MAMM SCREEN 3D ENMANUEL CADon [id number] MAMM SCREEN 3D ENMANUEL CADPatient: HERNANDEZNAIMA Exam Date: 11/05/2021 : 1970 Gender:F Ordering : DR OSCAR NAVARRO . Admission #: [id number] Family : Order #: [id number] CLICK HERE TO VIEW EXAM RADIOLOGY REPORT [...] by: Montrell Romeo MD on 11/05/2021 at 10:43[facility] PANEL 2: 30 to 65on 11-05-2021..NormalThe [facility] on above:Result Comment: Performed at: WBPerformed By: #### [id number] #### [facility] [address] [place] [address] Dr. Peg ShelbyAge Gdln ACOG Svwevni67-60ElzrgrKqnKettering Health HamiltonComcorewell health blodgett hospital on above:Performed By: #### [id number] #### [facility] [address] [place] [address] Dr. Peg ShelbyDIAGNOSIS:CommentGalion Hospital on above: Result Comment: NEGATIVE FOR INTRAEPITHELIAL LESION OR MALIGNANCY. Performed at: WBPerformed By: #### [id number] #### [facility] [address] [place] [address] Dr. Peg ShelbyHPV AptimaNegativeNormalNegativeWVUMedicine Barnesville Hospital on above:Result Comment: This nucleic acid amplification test detects fourteen high-risk HPV types (16,18,31,33,35,39,45,51,52,56,58,59,66,68) without differentiation. Performed at: =GPerformed By: #### [id number] #### [facility] [address] [place] [address] Dr. Peg ShelbyMethodology:CommentGalion Hospital on above: Result Comment: This liquid based ThinPrep(R) pap test was screened with the use of an image guided system. Performed at: WBPerformed By: #### [id number] #### [facility] [address] [place] [address] Dr. Peg ShelbyNote:CommentGalion Hospital on above:Result Comment: The Pap smear is a screening test designed to aid in the detection of premalignant and malignant conditions of the uterine cervix. It is not a diagnostic procedure and should not be used as the sole means of detecting cervical cancer. Both false-positive and false-negative reports do occur. . Performed at: WBPerformed By: #### [id number] #### [facility] [address] [place] [address] Dr. Peg ShelbyPerformed by:CommentNoMercy Health West HospitalComment on above: Result Comment: Janey Gonzalez, Felled Seam Operator Chainstitch (ASCP) Performed at: Performed By: #### [id number] #### [place] [address] Dr. Peg ShelbySpecimeperez adequacy:CommentKettering Health HamiltonComcorewell health blodgett hospital on above:Result Comment: Satisfactory for evaluation. Endocervical and/or squamous metaplastic cells (endocervical component) are present. Performed at: WBPerformed By: #### [id number] #### [facility] [address] [place] [address] Dr. Peg ShelbyVAGINITIS/VAGINOSIS DNA PROBEon [id number] speciesNegative NormalNegativeMary Rutan HospitalComment on above:Performed By: #### VAGINT #### [place] [address] Dr. Peg Savagednerella vaginalisPositiveAbnormalNegativeMary Rutan HospitalComment on above:Performed By: #### VAGINT #### [facility] [address] [place] [address] Dr. Peg ShelbyTrichomonas vaginalisNegativeNormalNegativeMary Rutan Hospital Comment on above:Performed By: #### VAGINT #### [facility] [address] [place] [address] Dr. Peg ShelbyUS SINGLE QUAD RT UPPERon [id number] SINGLE QUAD RT UPPEREXAM: Ultrasound of the [...] Electronically authenticated by: MONTRELL WU Date: 2021-10-16 07:39K[facility]tering Health HamiltonLIPID PROFILEon [id number]-HDL RATIO NORMSEE BELOWKettering Health HamiltonComcorewell health blodgett hospital on above:Result Comment: 3.3 - 4.4 LOW RISK 4.4 - 7.1 AVERAGE RISK 7.1 - 11.0 MODERATE RISK >11.0 HIGH RISKPerformed By: #### LIPID, CMP #### [facility] [address] [place] [address] Dr. Peg Brookeesteran [Mass/Vol]235 mg/dLCritically high<=200The [facility] on above:Performed By: #### LIPID, CMP #### [facility] [address] [place] [address] Dr. Peg Brookeesterol in HDL [Mass/Vol]42 mg/wWSuvpql94-72Ddq [facility] on above:Performed By: #### LIPID, CMP #### [facility] [address] [place] [address] Dr. Peg Brookeesterol in LDL [Mass/Vol]139.8 mg/dLGalion Hospital on above:Performed By: #### LIPID, CMP #### [facility] [address] [place] [address] Dr. Peg Owens.total/Cholesterol in HDL [Mass ratio]5.6 {ratio} NormalThe [facility] on above:Performed By: #### LIPID, CMP #### [facility] [address] [place] [address] Dr. Peg Munson NORMAL> or = 60 mg/dl - LOW CARDIOVASCULAR RISK <40 mg/dl - HIGH CARDIOVASCULAR RISKKettering Health HamiltonComment on above:Performed By: #### LIPID, CMP #### [facility] [address] [place] [address] Dr. Peg Rivera CALC NORMALSEE BELOWKettering Health HamiltonComment on above:Result Comment: <100 mg/dl OPTIMAL 100 - 129 mg/dl NEAR OR ABOVE OPTIMAL 130 - 159 mg/dl BORDERLINE HIGH 160 - 189 mg/dl HIGH >190 mg/dl VERY HIGH Performed By: #### LIPID, CMP #### [facility] [address] [place] [address] Dr. Peg ShelbyTriglyceride [Mass/Vol]266 mg/dLCritically high<=150The [facility] on above:Performed By: #### LIPID, CMP #### [facility] [address] [place] [address] Dr. Peg GillilandLDL CALC53.2 mg/dLNoMercy Health West HospitalComcorewell health blodgett hospital on above: Performed By: #### LIPID, CMP #### [facility] [address] [place] [address] Dr. Peg Herrera 14(COMP METB)on [id number] [Mass/Vol]3.9 g/dLNormal 3.4-5.0WVUMedicine [facility] on above:Performed By: #### LIPID, CMP #### [facility] [address] [place] [address] Dr. Peg ShelbyAlbumin/Globulin [Mass ratio]1.1 {ratio}NormalThe [facility] on above:Performed By: #### LIPID, CMP #### [facility] [address] [place] [address] Dr. Peg Mustafa [Catalytic activity/Vol]90 U/EJvpocg59-888Cxd [facility] on above:Performed By: #### LIPID, CMP #### [facility] [address] [place] [address] Dr. Yilan ChangALT [Catalytic activity/Vol]131 U/LCritically lccx34-65Eqv St. Charles HospitalComment on above:Performed By: #### LIPID, CMP #### [facility] [address] [place] [address] Dr. Peg ShelbyAnion gap [Moles/Vol]10.7 mmol/LNormalMary Rutan Hospital Comment on above:Performed By: #### LIPID, CMP #### [facility] [address] [place] [address] [address] Peg ShelbyAST [Catalytic activity/Vol]78 U/LCritically iprs53-28Lge St. Charles HospitalComment on above:Performed By: #### LIPID, CMP #### [facility] [address] [place] [address] Dr. Peg ShelbyBilirubin [Mass/Vol]0.5 mg/dLNormal0.2-1.0[facility] Comment on above:Performed By: #### LIPID, CMP #### [facility] [address] [place] [address] Dr. Peg ShelbyCalcium [Mass/Vol]8.6 mg/dLNormal8.5-10.1[facility] Comment on above:Performed By: #### LIPID, CMP #### [facility] [address] [place] [address] Dr. Peg ShelbyChloride [Moles/Vol]104 mmol/CSssbxh81-389NnrMary Rutan Hospital Comment on above:Performed By: #### LIPID, CMP #### [facility] [address] [place] [address] Dr. Peg ShelbyCO2 [Moles/Vol]29.5 mmol/OZwpetp99.0-32.0The [facility] Comment on above:Performed By: #### LIPID, CMP #### [facility] [address] [place] [address] Dr. Peg ShelbyCreatinine [Mass/Vol]0.83 mg/dLNormal0.55-1.02The St. Charles HospitalComment on above:Performed By: #### LIPID, CMP #### [facility] [address] [place], [place] [address] Dr. Peg BentleyGFR-AF GUYANESE>60Normal>=60The St. Charles HospitalComment on above:Performed By: #### LIPID, CMP #### [facility] [address] [address] [address] Peg BentleyGFR-NON AF GUYANESE>60Normal>=60The St. Charles HospitalComment on above:Performed By: #### LIPID, CMP #### [facility] [address] [place] [address] [address] Peg ShelbyGlobulin (S) [Mass/Vol]3.4 g/dLNormalThe St. Charles HospitalComment on above:Performed By: #### LIPID, CMP #### [facility] [address] [place] [address] Dr. Peg ShelbyGlucose [Mass/Vol]108 mg/dLCritically obaw72-271Adm St. Charles HospitalComment on above:Performed By: #### LIPID, CMP #### [facility] [address] [place] [address] Dr. Peg ShelbyPotassium [Moles/Vol]4.2 mmol/LNormal3.5-5.1The [facility] Comment on above:Performed By: #### LIPID, CMP #### [facility] [address] [place] [address] Dr. Peg ShelbyProtein [Mass/Vol]7.3 g/dLNormal6.4-8.2[facility] Comment on above:Performed By: #### LIPID, CMP #### [facility] [address] [place] [address] Dr. Peg ShelbySodium [Moles/Vol]140 mmol/ZUcibre701-077Toy [facility] Comment on above:Performed By: #### LIPID, CMP #### [facility] [address] [place] [address] Dr. Peg ShelbyUrea nitrogen [Mass/Vol]14.0 mg/dLNormal7.0-18.0The St. Charles HospitalComment on above:Performed By: #### LIPID, CMP #### [facility] [address] [address] [address] Peg ShelbyUrea nitrogen/Creatinine [Mass ratio]16.9 mg/mgNoMercy Health West HospitalComment on above:Performed By: #### LIPID, CMP #### [facility] [address] [place] [address] Dr. Peg MeyerID PROFILEon [id number]-HDL RATIO NORMSEE [facility] Health SystemComment on above:Result Comment: 3.3 - 4.4 LOW RISK 4.4 - 7.1 AVERAGE RISK 7.1 - 11.0 MODERATE RISK >11.0 HIGH RISKPerformed By: #### CMP, LIPID #### [facility] [address] [place] [address] Dr. Peg ShelbyCholesterol [Mass/Vol]245 mg/dLCritically high<=200Mary Rutan HospitalComment on above:Performed By: #### CMP, LIPID #### [facility] [address] [place] [address] Dr. Peg ShelbyCholesterol in HDL [Mass/Vol]42 mg/dLKettering Health Hamilton Comment on above:Performed By: #### CMP, LIPID #### [facility] [address] [place] [address] Dr. Peg ShelbyCholesterol in LDL [Mass/Vol]144.8 mg/dLKettering Health HamiltonComment on above:Performed By: #### CMP, LIPID #### [facility] [address] [place] [address] Dr. Peg Brookeesteran.total/Cholesterol in HDL [Mass ratio]5.8 {ratio} NormalMary Rutan HospitalComment on above:Performed By: #### CMP, LIPID #### [facility] [address] [place] [address] Dr. Peg ShelbyHDL NORMAL> or = 60 mg/dl - LOW CARDIOVASCULAR RISK <40 mg/dl - HIGH CARDIOVASCULAR RISKKettering Health HamiltonComment on above:Performed By: #### CMP, LIPID #### [facility] [address] [place] [address] Dr. Peg Rivera CALC NORMALSEE BELOWNoMercy Health West HospitalComment on above:Result Comment: <100 mg/dl OPTIMAL 100 - 129 mg/dl NEAR OR ABOVE OPTIMAL 130 - 159 mg/dl BORDERLINE HIGH 160 - 189 mg/dl HIGH >190 mg/dl VERY HIGH Performed By: #### CMP, LIPID #### [facility] [address] [address] [address] Peg ShelbyTriglyceride [Mass/Vol]291 mg/dLCritically high<=150The St. Charles HospitalComment on above:Performed By: #### CMP, LIPID #### [facility] [address] [address] [address] Peg ShelbyVLDL CALC58.2 mg/dLNoMercy Health West HospitalComment on above: Performed By: #### CMP, LIPID #### [facility] [address] [place] [address] Dr. Peg ShelbyPROF 14(COMP METB)on 05-37-6920Pariecs [Mass/Vol]4.0 g/dLNormal 3.5-5.0The St. Charles HospitalComment on above:Performed By: #### CMP, LIPID #### [facility] [address] [place] [address] Dr. Peg ShelbyAlbumin/Globulin [Mass ratio]1.1 {ratio}NormalThe St. Charles HospitalComment on above:Performed By: #### CMP, LIPID #### [facility] [address] [address] [address] Peg Mustafa [Catalytic activity/Vol]88 U/AKohqdy49-498Uor St. Charles HospitalComment on above:Performed By: #### CMP, LIPID #### [facility] [address] [address] [address] Peg Jones [Catalytic activity/Vol]112 U/LCritically high9-52The St. Charles HospitalComment on above:Performed By: #### CMP, LIPID #### [facility] [address] [place] [address] Dr. Peg Anaya gap [Moles/Vol]12.5 mmol/LNormalThe [facility] Comment on above:Performed By: #### CMP, LIPID #### [facility] [address] [address] [address] Peg ShelbyAST [Catalytic activity/Vol]52 U/LCritically qkug93-44Vnb St[facility] Charles HospitalComment on above:Performed By: #### CMP, LIPID #### [facility] [address] [place] [address] Dr. Peg ShelbyBilirubin [Mass/Vol]0.5 mg/dLNormal0.2-1.3The [facility] Comment on above:Performed By: #### CMP, LIPID #### [facility] [address] [place] [address] Dr. Peg ShelbyCalcium [Mass/Vol]8.9 mg/dLNormal8.4-10.2[facility] Comment on above:Performed By: #### CMP, LIPID #### [facility] [address] [place] [address] Dr. Peg ShelbyChloride [Moles/Vol]104 mmol/LHyrbyh13-633Iax [facility] Comment on above:Performed By: #### CMP, LIPID #### [facility] [address] [place] [address] Dr. Peg ShelbyCO2 [Moles/Vol]30.5 mmol/LCritically high22.0-30.0The St. Charles HospitalComment on above:Performed By: #### CMP, LIPID #### [facility] [address] [place] [address] Dr. Peg ShelbyCreatinine [Mass/Vol]0.82 mg/dLNormal0.52-1.04The [facility] Charles HospitalComment on above:Performed By: #### CMP, LIPID #### [facility] [address] [place] [address] Dr. Peg BentleyGFR-AF GUYANESE>60Normal>=60The St[facility] Charles HospitalComment on above:Performed By: #### CMP, LIPID #### [facility] [address] [place] [address] Dr. Peg BentleyGFR-NON AF GUYANESE>60Normal>=60The [facility] Charles HospitalComment on above:Performed By: #### CMP, LIPID #### [facility] [address] [address] [address] Peg ShelbyGlobulin (S) [Mass/Vol]3.7 g/dLNormalThSt. Mary's Medical Center, Ironton CampusComment on above:Performed By: #### CMP, LIPID #### [facility] [address] [address] [address] Peg ShelbyGlucose [Mass/Vol]118 mg/dLCritically bwwh76-724Kku St. Charles HospitalComment on above:Performed By: #### CMP, LIPID #### [facility] [address] [place] [address] Dr. Peg ShelbyPotassium [Moles/Vol]4.0 mmol/LNormal3.4-5.0The [facility] Comment on above:Performed By: #### CMP, LIPID #### [facility] [address] [place] [address] Dr. Peg ShelbyProtein [Mass/Vol]7.7 g/dLNormal6.1-8.2The [facility] Comment on above:Performed By: #### CMP, LIPID #### [facility] [address] [place] [address] Dr. Peg ShelbySodium [Moles/Vol]143 mmol/VYbrvyn360-722EbwMary Rutan Hospital Comment on above:Performed By: #### CMP, LIPID #### [facility] [address] [place] [address] Dr. Peg ShelbyUrea nitrogen [Mass/Vol]13.0 mg/dLNormal7.0-17.0The St. Charles HospitalComment on above:Performed By: #### CMP, LIPID #### [facility] [address] [place] [address] Dr. Peg Warren nitrogen/Creatinine [Mass ratio]15.9 mg/mgNoMercy Health West HospitalComment on above:Performed By: #### CMP, LIPID #### [facility] [address] [place] [address] Dr. Peg Shelby2019 Novel Coronavirus (CoVID-19), LUCINDA LCon [id number]-CoV-2, LUCINDA (COVID-19) LCDetectedAbnormalNot Wright-Patterson Medical CenterComment on above: Order Comment: [id number] Results Called To Imelda at Dr. Alba's By JOSUE And Read Back For Confirmation On 12/23/2019 11:38:22EDT.Result Comment: This test was developed and its performance characteristics determined by [employer]. This test has not been FDA cleared [...] detected) result in this assay. Performed At: [facility] [address] [facility] [facility] [place] [id number] Kenna Bach MD Ph:[phone] By: #### [id number] #### [facility] (DEFAULT) [address] [place] [id number] Summaryon [id number] SummaryCODING DATE: 12/22/2019 FINAL [facility] STATUS: Home PAYOR: Commercial Insurance ADMIT [...] By: Sheryl Lovett Date Saved: 12/22/2019 01:57 [facility] HospitalConsent Formson 12-22-2019 Consent [id number]#1.00OTGTThe [facility] Vital Signs Date TimeVital SignValuePerforming FrfjzmawfCbnczpwf40-89-2423 08:27-0500Body wrsknu425.02 cmMaribeth Galvez FAGOTER Work Phone: [phone]11-05-2025 08:27-0500 Body mass index (BMI) [Ratio]47.2 kg/o9OijckxucMaribeth Galvez FAGOTER Work Phone: [phone] [place], [place] [address]11-05-2025 08:27-0500 Body ncilkg100.1 kgMaribeth Galvez FAGOTER Work Phone: [phone] [place], [place] [address]11-05-2025 08:27-0500 Diastolic blood arabello771 mm[Hg]Maribeth Galvez FAGOTER Work Phone: [phone] [place], [place] [address]11-05-2025 08:27-0500 Heart ygsa986 /minMaribeth Galvez FAGOTER Work Phone: [phone] [place], [place] [address]11-05-2025 08:27-0500 Respiratory rate14 /minMaribeth Galvez FAGOTER Work Phone: [phone] [address] [place], [place] 9452511-05-2025 08:27-0500 SaO2% (BldA) [Mass fraction]96 %Maribeth Galvez FAGOTER Work Phone: [phone] [place], [place] 9452511-05-2025 08:27-0500 Systolic blood neyjdpaf017 mm[Hg]Maribeth Galvez FAGOTER Work Phone: [phone]10-08-2025 08:54-0400 Body eibvuj255.02 cmMaribeth Castilloryan FAGOTER Work Phone: [phone] [place], [place] 9452510-08-2025 08:54-0400 Body mass index (BMI) [Ratio]47.9 kg/h6LggahjriMaribeth Galvez FAGOTER Work Phone: [phone] [place], [place] 9452510-08-2025 08:54-0400 Body erawoenshuc19.7 [degF]Maribeth Castilloryan FAGOTER Work Phone: [phone] [place], [place] 9452510-08-2025 08:54-0400 Body .92 kgMaribeth Galvez FAGOTER Work Phone: [phone] [place], [place] 9452510-08-2025 08:54-0400 Diastolic blood xgjppxgy88 mm[Hg]Maribeth Castilloryan FAGOTER Work Phone: [phone] [place], [place] 9452510-08-2025 08:54-0400 Heart uxhj187 /minMaribeth Castilloryan FAGOTER Work Phone: [phone] [place], [place] 9452510-08-2025 08:54-0400 SaO2% (BldA) [Mass fraction]97 %Maribeth Castilloryan FISHER Work Phone: [phone] [place], [place] 9452510-08-2025 08:54-0400 Systolic blood mm[Hg]Maribeth Castilloryan FISHER Work Phone: [phone] [place], [place] 9452505-07-2025 13:28-0400 Body otudwi887 cmEdellie Alba MD Work Phone: [facility] HospitalQvfwvsusdh07-42-3028 13:28-0400Body mass index (BMI) [Ratio]48.71 kg/j2EvzjkjEnrique Alba MD Work Phone: [facility] HospitalRfxngwmsrx33-92-6581 13:28-0400Body taefnq975.74 kgEnrique Alba MD Work Phone: [facility] HospitalSpstckploj18-75-9911 13:28-0400Heart rate77 /min Enrique Alba MD Work Phone: [facility] HospitalMalnlxhfdk79-49-2668 13:28-6520ZjS9% (BldA) [Mass fraction]97 %Enrique Alba MD Work Phone: [phone] HospitalIjjeyupdzg01-51-8237 15:24-0400Body cm Enrique Alba MD Work Phone: [phone] HospitalCgnejactzy75-01-6876 15:24-0400Body mass index (BMI) [Ratio]48.71 kg/t3PxvaziEnrique Alba MD Work Phone: [phone] HospitalBjexzfgqhh76-97-3204 15:24-0400Body pmziae116.74 kgEnrique Alba MD Work Phone: [phone] HospitalNzzsynuxmj31-74-1765 15:24-0400Diastolic blood mm[Hg]Enrique Alba MD Work Phone: [phone] HospitalLopvqnadxy05-92-7117 15:24-0400Heart rate90 /min Enrique Alba MD Work Phone: [phone] HospitalDiiovzezto60-12-6819 15:24-5814GlR3% (BldA) [Mass fraction]97 %Enrique Alba MD Work Phone: [phone] HospitalSacwicnglh99-95-4405 15:24-0400Systolic blood ohnibgbg369 mm[Hg]Enrique Alba MD Work Phone: [facility] HospitalGiwruuauaf53-86-6030 18:15-0500Body temperature 97.2 [degF]Luis Eduardo Levine COMMERCIAL MAINTENANCE TECHNICIAN Work Phone: [facility] HospitalGjuszgcsyj90-44-8827 18:15-0500Diastolic blood pyffeezn24 mm[Hg]Luis Eduardo Levine COMMERCIAL MAINTENANCE TECHNICIAN Work Phone: [facility] HospitalZqaskllbbw07-17-2309 18:15-0500Heart rate88 /min Luis Eduardo Levine COMMERCIAL MAINTENANCE TECHNICIAN Work Phone: NOPike [facility] HospitalIrpfsxkpuv79-35-2873 18:15-0151GqU8% (BldA) [Mass fraction]98 %Luis Eduardo Levine COMMERCIAL MAINTENANCE TECHNICIAN Work Phone: noPike [facility] HospitalTrqxwvcbbq29-13-4716 18:15-0500Systolic blood ezvhroot932 mm[Hg]Luis Eduardo Levine COMMERCIAL MAINTENANCE TECHNICIAN Work Phone: [facility] HospitalBfjcqvmuoz77-50-8504 10:20-0500Body mass index (BMI) [Ratio]48.86 kg/r0JcaahiqBeatriz Chavis COMMERCIAL MAINTENANCE TECHNICIAN Work Phone: [facility] HospitalZpuxfhytqo30-13-5642 10:20-0500Body temperature 97.59 [degF]Beatriz Chavis COMMERCIAL MAINTENANCE TECHNICIAN Work Phone: [facility] HospitalUoqemfqxff71-13-8474 10:20-0500Body ztbmat654.1 kgBeatriz Chavis COMMERCIAL MAINTENANCE TECHNICIAN Work Phone: [facility] HospitalBxcpfwulzv42-61-2780 10:20-0500Diastolic blood njbihuyt17 mm[Hg]Beatriz Chavis COMMERCIAL MAINTENANCE TECHNICIAN Work Phone: [facility] HospitalZhqpexsluy83-74-5843 10:20-0500Heart uljb656 /min Beartiz Chavis COMMERCIAL MAINTENANCE TECHNICIAN Work Phone: [facility] HospitalDqcwgdnlhx91-08-4477 10:20-2951IaI8% (BldA) [Mass fraction]97 %Beatriz Chavis COMMERCIAL MAINTENANCE TECHNICIAN Work Phone: [facility] HospitalDmaetnshan89-71-0406 10:20-0500Systolic blood frbvjuwd191 mm[Hg]Beatriz Chavis COMMERCIAL MAINTENANCE TECHNICIAN Work Phone: [facility] HospitalJrnhcplxef80-51-3303 13:48-0500Body agfzvu042 cm Enrique Alba MD Work Phone: [facility] HospitalAoofhkniet91-85-3130 13:48-0500Body mass index (BMI) [Ratio]36.31 kg/y1UxquteEnrique Alba MD Work Phone: noPike [facility] HospitalTtzlzczikv17-79-6986 13:48-0500Body dymmal73.99 kgEnrique Alba MD Work Phone: noPike [facility] HospitalBtwsltjoqm90-75-7382 13:48-0500Heart rate93 /min Enrique Alba MD Work Phone: [facility] HospitalJfuokrpvdz40-44-9780 13:48-7803CcZ9% (BldA) [Mass fraction]95 %Enrique Alba MD Work Phone: [phone] HospitalTzngkhfzqv38-81-2165 11:40-0500Body mass index (BMI) [Ratio]36.34 kg/m2Janey Janette PA Work Phone: [facility] HospitalWdwvayzurs48-73-7609 11:40-0500Body vddriq79.04 kgAmy Janette PA Work Phone: [facility] HospitalXqduilehna63-82-1976 11:40-0500Diastolic blood dghjxlro76 mm[Hg]Janey Savage PA Work Phone: [facility] HospitalNadqpfvden04-62-8822 11:40-0500Systolic blood pczjeanf966 mm[Hg]Janey Savage PA Work Phone: [facility] HospitalExvoidpxdx10-46-5584 14:26-0500Body cm Enrique Alba MD Work Phone: [phone] [place], [place] [address]Migwretats70-07-1539 14:26-0500Body mass index (BMI) [Ratio]49.6 kg/k4IsubmgEnrique Alba MD Work Phone: [phone] [place], [place] [address]Tjjphfpqaj51-22-3652 14:26-0500Body lqjdho717.01 kgEnrique Alba MD Work Phone: [phone] HospitalGwfcxosumz05-50-6579 15:35-0400Body xqsifk537 cm Enrique Alba MD Work Phone: [phone] [place], [place] [address]Ycvwdogdut82-60-2557 15:35-0400Body mass index (BMI) [Ratio]49.6 kg/u0CsutizEnrique Alba MD Work Phone: [phone] [place], [place] [address]Frvtnyiuee96-77-4635 15:35-0400Body ssvxcy683.01 kgEnrique Alba MD Work Phone: [phone] HospitalIzfebqtuyc97-39-9172 15:35-0400Diastolic blood pxojygru38 mm[Hg]Enrique Alba MD Work Phone: [phone] [place], [place] [address] 15:35-0400Heart rate97 /min Enrique Alba MD Work Phone: [phone] HospitalAjvenzbcat74-41-4425 15:35-2370FiZ6% (BldA) [Mass fraction]99 %Enrique Alba MD Work Phone: [phone] HospitalUiuzwhpfmf13-61-1644 15:35-0400Systolic blood hpkpusds965 mm[Hg]Enrique Alba MD Work Phone: [phone] [address]Ivdtevmkxf96-00-6809 16:24-0400Body pdslpe662 cm Enrique Alba MD Work Phone: [phone] [address]Xpagxtlodn38-64-4649 16:24-0400Body mass index (BMI) [Ratio]46.06 kg/p8KwpfijEnrique Alba MD Work Phone: [phone] HospitalOdaotfofmw01-62-6177 16:24-0400Body .94 kgEnrique Alba MD Work Phone: [phone] [address]Jtqiiadhhx10-37-4093 14:03-0400Body cm Taylor [address]ee [address] Work Phone: [phone] Regional Medical CenterDertky93-11-2980 14:03-0400Body forixf108.[address] Work Phone: [phone] Regional Medical CenterTscres42-53-1486 13:20-0400Body gxybka311 cm Radha Hernandez MD Work Phone: [phone]07-05-2023 13:20-0400Body ouwdcz374.2 kgRadha Hernandez MD Work Phone: [phone]04-06-2023 14:50-0400Diastolic blood mm[Hg]Mariajose Stallworth MD Work Phone: [phone] Regional Medical CenterBrclmr20-58-2992 14:50-0400Heart cmkv449 /minMariajose Stallworth MD Work Phone: [phone] Gstlvy53-40-1013 14:50-0400Systolic blood hyfubncy058 mm[Hg]Mariajose Stallworth MD Work Phone: cCommunity Regional Medical CenterUdyhgb24-03-8354 14:00-0500Body uwxdvo514.02 Demetra Fuller Other [employer] Other 01-10-2023 14:00-0500Body mass index (BMI) [Ratio] 46.05 kg/o6Stiytvejnadine Chenack Other [employer] Other 01-10-2023 14:00-0500Body zadjqe012.94 kgLawrnadine Fuller Other [employer] Other 01-10-2023 14:00-0500Diastolic blood lyrxbnbm091 mm[Hg]Ernie Fuller Other [employer] Other 01-10-2023 14:00-0500Systolic blood mm[Hg] Ernie Fuller Other [employer] Other 10-05-2022 10:45-0400Body okstln649.02 Demetra Fuller Other [employer] Other 10-05-2022 10:45-0400Body mass index (BMI) [Ratio] 47.29 kg/y5Vjovkkaydeanne Chenack Other [employer] Other 10-05-2022 10:45-0400Body xloasp561.11 kgLawrnadine Chenack Other [employer] Other Encounters Encounter DateEncounter TypeCare ProviderFacilityStart: 03-07-2025 End: 31-39-6607Jatjkvdgv Result EncounterJaney RILEY Work Phone: noms External Department UnsolicitedStart: 03-07-2025 End: 94-57-7792Plcrppfsx Result EncounterJaney RILEY Work Phone: noms External Department UnsolicitedStart: 03-07-2025 End: 54-19-5395ldumbqwqwwZTQIPNULFPKOhio State Health System Start: 03-02-2025 End: 64-90-6299pfykqalzaoGpgbplqr Rohrosalbazoyazaida FISHER Work Phone: [facility]tart: 03-02-2025 End: 49-12-7098Qpirihj encounter procedureMaribeth Galvez FAGOTER [facility] Work Phone: Start: 83-98-2483qwzhrqrzhgDQNSCSQYOEGKindred Hospital Daytontart: 02-02-2025 End: 39-04-6027virogotjprByxjyhpl Rohrbzoyazaida FAGOTER Work Phone: [facility] Work Phone: Start: 02-02-2025 End: 43-86-5071Dddzhkg encounter procedureMaribeth Galvez FAGOTER [facility] Work Phone: Start: 11-09-2024 End: 83-86-3990Effczyybu encounterApril Rachel MANCHARY CI FM 100Comment on above: Care CoordinationStart: 11-04-2024 End: 26-51-6713Slvusjjvw Result Jose Alba MD Work Phone: noms External Department UnsolicitedStart: 11-04-2024 End: 55-89-8671Ykbyogbxf Result Jose Alba MD Work Phone: noms External Department UnsolicitedStart: 10-30-2024 End: 39-35-7085Odipbaylq Result EncounterGeneric External Data ProviderNOMS External Department UnsolicitedStart: 10-30-2024 End: 15-42-1886Hpplktzco Result EncounterGeneric External Data ProviderNOMS External Department UnsolicitedStart: 10-27-2024 End: 87-54-1649Irwzkacox Result Jose Alba MD Work Phone: NOKX External Department UnsolicitedStart: 10-27-2024 End: 43-88-1794Pajmsnlfl Result Jose Alba MD Work Phone: NOVG External Department UnsolicitedStart: 09-01-2024 End: 76-28-3160Lohngg flowsNavarro Alba MD Work Phone: [facility] CI FM 100Start: 09-01-2024 End: 29-09-2043Vpgkdb Ian Alba MD Work Phone: [facility] CI FM 100Start: 09-01-2024 End: 01-06-2849Cfydua outpatient visit 25 minutesEnrique Alba MD Work Phone: NOVV CI FM 100Comment on above:Palpitations (Primary Dx); TachycardiaStart: 09-01-2024 End: 70-85-9380jpvhpllnkyTUNEDI J HEMEYERNot AvailableStart: 08-02-2024 End: 76-94-4459Ofafvk outpatient visit 25 minutesEnrique Alba MD Work Phone: [facility] CI FM 100Comment on above:Restless leg syndrome (Primary Dx); Other chronic pain; Insomnia due to other mental disorder; Recurrent major depressive disorder, in partial remission (HCC) (CMS/HCC); Primary hypertension (CMS/HCC); Mixed dyslipidemia (CMS/HCC); Pre-diabetes; Morbid obesity (CMS/HCC); Adult BMI 45.0-49.9 kg/sq m (CMS/HCC)Start: 08-02-2024 End: 80-89-0701wzwzncfacoKISTHG J HEMEYERNot AvailableStart: 08-02-2024 End: 95-42-3750Gernyy Ian Alba MD Work Phone: [facility] CI FM 100Start: 08-02-2024 End: 15-13-2474Fnsfea Ian Alba MD Work Phone: [facility] CI FM 100Start: 06-16-2024 End: 75-07-5942Rbkltjdml encounterLindsmaximilian Levine COMMERCIAL MAINTENANCE TECHNICIAN Work Phone: [facility] HSM FMStart: 06-15-2024 End: 26-76-6522Bymshr outpatient visit 25 minutesLindsmaximilian N Julián COMMERCIAL MAINTENANCE TECHNICIAN Work Phone: NOMX SWS UCComment on above:Left foot pain (Primary Dx); Strain of left foot, initial encounterStart: 06-15-2024 End: 72-16-6791aeatbrrgafVDFXVUS N AUSTINNot AvailableStart: 05-09-2024 End: 24-41-3096GilcgjVajhkj J Hemeyer MD Work Phone: [facility] CI FM 100Comment on above:Pre-diabetesStart: 04-17-2024 End: 34-68-2527eqyepdgymgZPRSWKX L DIDIONNot AvailableStart: 04-17-2024 End: 11-81-4555Vgtkzj outpatient visit 25 minutesJessica L Didravi COMMERCIAL MAINTENANCE TECHNICIAN Work Phone: noms SWS UCComment on above:Acute pain of left knee (Primary Dx)Start: 04-05-2024 End: 27-68-2510Axpnju flowsNavarro Alba MD Work Phone: [phone] CI FM 100Start: 04-05-2024 End: 44-29-2894Vinnnj Ian Alba MD Work Phone: [facility] CI FM 100Start: 04-05-2024 End: 46-77-4317wbijmwybyjDJPOGA J HEMEYERNot AvailableStart: 04-05-2024 End: 05-98-4135Qvadyi outpatient visit 15 minutesEnrique Alba MD Work Phone: [facility] CI FM 100Comment on above:Acute non-recurrent pansinusitis (Primary Dx)Start: 03-31-2024 End: 25-09-2202Akdaxw Fco Alba MD Work Phone: [facility] CI FM 100Comment on above:Pre-diabetesStart: 03-29-2024 End: 38-64-1421Tuiyhj flowsoralJaney RILEY Work Phone: noms BCP OBStart: 03-29-2024 End: 06-19-2756Vgaflc flowsoralJaney RILEY Work Phone: noms BCP OBStart: 03-29-2024 End: 52-30-3901Myjernrxl Result EncounterGeneric External Data ProviderNOMS External Department UnsolicitedStart: 03-29-2024 End: 88-24-1939Cripvwc encounter procedureJaney Janette PA Work Phone: [facility] Work Phone: Start: 03-29-2024 End: 53-52-2396Angyrske preventive med est patient 40-64yrsAmy Janette RLIEY Work Phone: noms BCP OBComment on above:Well woman exam with routine gynecological exam; Yeast infection of the skinStart: 03-29-2024 End: 19-34-4529mizjbodwweNYF RAMEYNot AvailableStart: 03-13-2024 End: 58-26-1119PyrpnyNptpmlPiyush Alba MD Work Phone: [facility] CI FM 100Comment on above:Mixed dyslipidemia (CMS/HCC)Start: 03-12-2024 End: 46-63-2252UlsbpjTayhobPiyush Alba MD Work Phone: [facility] CI FM 100Comment on above:Mixed dyslipidemia (CMS/HCC)Start: 03-11-2024 End: 89-57-2615Sckrhq outpatient visit 25 minutesEdellie Alba MD Work Phone: [facility] CI FM 100Comment on above:Pre-diabetes (Primary Dx); Restless leg syndrome; Mixed dyslipidemia (CMS/HCC)Start: 03-11-2024 End: 13-46-8502xsyequjphhINYSNRRochelle Lares AvailableStart: 03-11-2024 End: 60-54-1192Hpnpnt flowsheetEnrique Alba MD Work Phone: [facility] CI FM 100Start: 03-11-2024 End: 65-39-5324Sgygyt flowsNavarro Alba MD Work Phone: NOOL CI FM 100Start: 03-05-2024 End: 28-08-4929Usslrxvtt Result EncounterEdellie Alba MD Work Phone: noms External Department UnsolicitedStart: 03-05-2024 End: 89-60-2528Yumgctkxv Result EncounterEdellie Alba MD Work Phone: noms External Department UnsolicitedStart: 02-25-2024 End: 40-48-3153Aegqrlk encounter statusEnrique Alba MD Work Phone: [facility] Work Phone: Start: 02-25-2024 End: 51-04-9537Njjjsrco preventive med est patient 40-64yrsEdellie Alba MD Work Phone: NOOB CI FM 100Comment on above:Encounter for wellness [...] Screening mammogram for breast cancerStart: 02-25-2024 End: 02-99-8565qcyfajyphmMIYFKR J HEMEYERNot AvailableStart: 02-25-2024 End: 50-17-0478Iqwsla flowsheetEnrique Alba MD Work Phone: noms CI FM 100Start: 02-25-2024 End: 84-60-6814Lzwrzy flowsNavarro Alba MD Work Phone: NOHX CI FM 100Start: 12-25-2023 End: 59-16-0235Fslngcafj encounterEdellie Alba MD Work Phone: [facility] CI FM 100Start: 12-16-2023 End: 21-58-5995negqsrwecjYLKFMW J HEMEYERNot AvailableStart: 12-16-2023 End: 23-70-8399Mbqhib outpatient visit 15 minutesEdellie Alba MD Work Phone: [facility] CI FM 100Comment on above:Insomnia due to other mental disorder; Recurrent major depressive disorder, in partial remission (HCC) (CMS/HCC); Morbid obesity (CMS/HCC); Adult BMI 45.0-49.9 kg/sq m (CMS/HCC)Start: 12-05-2022 End: 49-50-1866duvbgnyzajWprinmrww M Patton RD Work Phone: Nutrition TherapyComment on above:Fatty liverStart: 12-05-2022 End: 43-16-4151Jzouekmmdyjw consultation with patientTaylor Gee RD Work Phone: MIGUEL MATA FHCStart: 10-30-2022 End: 80-14-2119ewiivuoourHCICCKBertram HERNANDEZFacility:[facility] Start: 10-30-2022 End: 18-08-5461Ncbgpwa encounter Gopal Hernandez MD Work Phone: GastroenterologyComment on above:Fatty liver (Primary Dx); Class 3 severe obesity due to excess calories in adult, unspecified BMI, unspecified whether serious comorbidity present (HCC)Start: 08-01-2022 End: 85-03-5012zdjngaibxhHQZAZJ S PERHALAFacility:[facility] Start: 08-01-2022 End: 42-18-0390Pgjumcs encounter Giorgi Stallworth MD Work Phone: RheumatologyComment on above:Erosive osteoarthritis of both hands (Primary Dx); Primary osteoarthritis involving multiple joints; NSAID long-term useStart: 06-17-2022 End: 64-24-8687fjawbgvbwyBlyukn Cundiff Other [facility] [place] Other Start: 92-90-9739Bwagfwuzd Neptaliwilli ChavezTheodora Referral CoordinatorStart: 05-07-2022 End: 04-82-4644pxrwdaezhhLphbziti McCormack Other no[facility] [place] Other Start: 92-50-7321Ifhcng outpatient visit 25 minutes Ernie Monson GastroenterologyStart: 02-20-2022 End: 57-04-3443ntwlygntwdKmoymn J HemeyerFacility:[facility] Centertart: 01-30-2022 End: 89-94-4704gakhzogbqnJmaxgdoi McCormack Other [facility] [place] Other Start: 04-71-5313Wuwdog outpatient new 45 minutes Ernie Monson GastroenterologyStart: 11-05-2021 End: 10-75-0185kdhmwxpfpsAF OSCAR KARASIKFacility:Q4Hncbq: 11-01-2021 End: 79-48-4780bbmsfcggvbLW EDWARD HEMEYERFacility:B7Iurrz: 10-16-2021 End: 69-17-8906fnlekeyedrZN EDWARD HEMEYERFacility:J9Kokrj: 10-11-2021 End: 59-65-6979njzqovczieWH EDWARD HEMEYERFacility:H1Ndkdt: 03-20-2021 End: 38-76-6560zgblnlzffnFF EDWARD HEMEYERFacility:H1 Procedures DateProcedureProcedure DetailPerforming ClinicianStart: 35-40-0438HR TOMOSYNTHESIS SCREENING Eula RILEY Work Phone: Start: 08-21-3154YbetogunkdsJmq Ramey PA Work Phone: Start: 18-38-4580FX KIMBERLYN PERF SPECT REST Magalys Alba MD Work Phone: Start: 20-97-8957DZG HEMOGLOBIN C1UDpjvgov External Data ProviderStart: 55-29-3257EJJ CBC WITH AUTO Josefina Alba MD Work Phone: Start: 92-38-4548Ldbebdofoc examination knee 3 views Beatriz David Chavis COMMERCIAL MAINTENANCE TECHNICIAN Work Phone: Start: 11-72-8855YKY,APTIMA HPV,AGE GDLNJaney RILEY Work Phone: Start: 76-52-2245Vcxfgurklpn observation [Identifier] in Cervix by Cyto stainEdellie Alba MD Work Phone: Start: 70-11-3035FR TOMOSYNTHESIS SCREENING BIEnrique Alba MD Work Phone: Start: 27-21-2474QV DEXA AXIAL SKELETONEnrique Alba MD Work Phone: Start: 68-22-2934CFC LIPID PROFILE (FASTING)Enrique Alba MD Work Phone: Start: 83-33-6046UPF CMP (CMP) (FOR REMOTE [facility] USE) Enrique Alba MD Work Phone: Start: 55-43-7429SskldezkzwkBgtdcn Hemeyer MD Work Phone: Start: 70-77-6834Rrelrxtyhga observation [Identifier] in Cervix by Cyto Davina RILEY Work Phone: Start: 04-95-7365Umldbtu of operative procedure on kneeStatus post bilateral knee replacementsEnrique Alba MD Work Phone: Start: 13-74-0388EnwcvvjfngiEeenof Hemeyer MD Work Phone: Start: 73-50-8308QurphefcumxYdtbdmmce Patton RD Work Phone: Plan of Treatment DateCare ActivityDetailAuthorStart: 32-81-2460Ujqiygcua for malignant neoplasm of cervixNOMS HealthcareStart: 44-17-7996Iixukxfhp for malignant neoplasm of colonNOMS HealthcareStart: 96-46-0243Qlnizxbet for malignant neoplasm of cervix [facility] HealthcareStart: 04-04-2025 End: 85-95-0181Uwpldfd encounter procedureNOMS BCP OBStart: 28-39-3183Enbbwbxcw for malignant neoplasm of breastMammogramNONM HealthcareStart: 80-07-2938SCVIM- 19 Vaccine ( season)COVID-19 Vaccine ( season)[facility]OM[facility] HealthcareStart: 72-11-3073Ysrjxapir vaccinationInfluenza Vaccine (#1)NOM HealthcareStart: 09-01-2024 End: 47-08-2529Sfiybd monitor studyHolter monitor Imaging Routine Palpitations Tachycardia Expected: 09/01/2024 (Approximate), Expires: 09/01/2025[facility] Work Phone: Comment on above:Expected: 09/01/2024 (Approximate), Expires: 09/01/2025Start: 09-01-2024 End: 75-30-4941Qfnvbus encounter gnmyxpklj48/07/2025 1:45 PM EDT Office Visit [facility] [address] [facility] [address] [place] [address] Enrique Alba MD [address] [place] [address] ArrivedNOMS CI FM 100Comment on above: ArrivedStart: 08-02-2024 End: 08-72-4107Jygwenc encounter lqakzitye40/07/2025 3:30 PM EDT Office Visit [facility] [address] [facility] [address] [place] [address] Enrique Alba MD [address] [place] [address] (Fax) Primary hypertension (CMS/HCC); Mixed dyslipidemia (CMS/HCC); [...] BMI 45.0-49.9 kg/sq m (CMS/HCC)Start: 08-02-2024 End: 33-20-6604CBP W Auto Differential panel - BloodCBC and differential Lab Routine Restless leg syndrome Expected: 08/02/2024 (Approximate), Expires: 08/02/2025[facility] Work Phone: Comment on above:Expected: 08/02/2024 (Approximate), Expires: 08/02/2025Start: 08-02-2024 End: 62-10-5788Szmo and Iron binding capacity panel - Serum or PlasmaIron and TIBC Lab Routine Restless leg syndrome Expected: 08/02/2024 (Approximate), Expires: 08/02/2025NONM HealthcareComment on above:Expected: 08/02/2024 (Approximate), Expires: 08/02/2025Start: 03-29-2024 End: 92-56-8709Ssgnmla encounter procedureNOMS BCP OBComment on above:Arrived Start: 14-51-5086Qjyvaffwk for malignant neoplasm of cervixNONM HealthcareStart: 02-26-2024 End: 65-63-0502Revjlknkhoexx metabolic 2000 panel - Serum or PlasmaComprehensive metabolic panel Lab Routine Glucose intolerance (impaired glucose tolerance) Primary hypertension (CMS/HCC) Expected: 02/26/2024 (Approximate), Expires: 02/25/2025[facility] Work Phone: Comment on above:Expected: 02/26/2024 (Approximate), Expires: 02/25/2025Start: 02-26-2024 End: 65-26-0420XLA Breast - bilateral screeningBilateral screening mammogram with tomosynthesis Imaging Routine Screening mammogram for breast cancer Expected: 02/26/2024 (Approximate), Expires: 04/27/2025NONM HealthcareComment on above:Expected: 02/26/2024 (Approximate), Expires: 04/27/2025Start: 02-26-2024 End: 56-70-6489LDR Skeletal system Views for bone densityDEXA bone density Imaging Routine Menopausal and female climacteric states Osteoporosis screening Encounter for follow-up examination after completed treatment for conditions other than malignant neoplasm Expected: 02/26/2024 (Approximate), Expires: 02/25/2025NOMS HealthcareComment on above:Expected: 02/26/2024 (Approximate), Expires: 02/25/2025Start: 02-26-2024 End: 55-33-8121Wdpbo 1996 panel - Serum or PlasmaLipid panel Lab Routine Mixed hyperlipidemia (CMS/HCC) Expected: 02/26/2024 (Approximate), Expires:02/25/2025 [facility] HealthcareComment on above:Expected: 02/26/2024 (Approximate), Expires: 02/25/2025Start: 02-25-2024 End: 12-52-3417Aybwnah encounter dedadmwno37/30/2024 3:30 PM EDT Office Visit [facility] [address] [facility] [address] [place] [address] Enrique Alba MD [address] [facility] [address] [place] [address] Encounter for wellness examination in adult; Advance directive discussedwith patient; Morbid obesity (CMS/HCC); Adult BMI 45.0-49.9 kg/sq m (CMS/HCC)[facility] 100Comment on above:Encounter for wellness examination in adult; Advance directive discussed with patient; Morbid obesity (CMS/HCC); Adult BMI 45.0-49.9 kg/sq m (CMS/HCC)Start: 72-40-3697Frrllulkl vaccination Influenza Vaccine (#1)[facility] HealthcareStart: 06-88-6685Xymacodur vaccination [facility]ENZA (#1)[facility]: 85-94-2212Xxcfbhmmt for malignant neoplasm of breastMammogramNOMS HealthcareStart: 10-30-2022 End: 90-46-5223AZSESE SCREEN WITH REFLEXCELIAC SCREEN WITH REFLEX Lab Routine Fatty liver Expected: 10/30/2022, Expires: 12/30/2022[facility] Work Phone: Comment on above:Expected: 10/30/2022, Expires: 12/30/2022Start: 10-30-2022 End: 80-95-5959Vmjzreycywupi metabolic 2000 panel - Serum or PlasmaCOMP METABOLIC PANEL Lab Routine Fatty liver Expected: 10/30/2022, Expires: 12/30/2022[facility] Work Phone: Comment on above:Expected: 10/30/2022, Expires: 12/30/2022Start: 10-30-2022 End: 51-78-7511KMXQLVSLL A ANTIBODY, IGGHEPATITIS A ANTIBODY, IGG Lab Routine Fatty liver Expected: 10/30/2022, Expires: 12/30/2022[facility] Work Phone: Comment on above:Expected: 10/30/2022, Expires: 12/30/2022Start: 69-11-3707XIOMJQRMDZ ASSESSMENTDEPRESSION ASSESSMENTMercy Health West Hospitaltart: 22-18-7911GjzcsoalrozZZUPSHRLNWibkoqjge ClinicStart: 2020 SHINGRIX VACCINE (1 of 2)SHINGRIX VACCINE (1 of 2)[facility]: 97-83-8161ZPSXIGIE SCREENDIABETES SCREENMercy Health West Hospitaltart: 09-25-2015 COLOGUARD (FIT-DNA)COLOGUARD (FIT-DNA)[facility]: 09-25-2015 ColonoscopyCOLONOSCOPYMercy Health West Hospitaltart: 49-79-4318KYEPEKEUAE CANCER SCREENINGCOLORECTAL CANCER SCREENINGMercy Health West Hospitaltart: 94-95-1643RE COLONOGRAPHYCT COLONOGRAPHYMercy Health West Hospitaltart: 79-99-3415TLXLE OCCULT BLOOD FECAL OCCULT BLOODMercy Health West Hospitaltart: 54-77-0274QTOSP SCREENLIPID SCREEN [facility]: 15-55-7470RJRPLLURUHYOOFKDKUNHHJWYMIBpccarlss Clinic Start: 30-75-5932OoyzpijlvkvZCEEKHEQXWmghseiqx ClinicStart: 44-07-2465ESJ TESTINGHPV TESTINGMercy Health West Hospitaltart: 14-83-4918BFJ TESTINGPAP TESTING [facility]: 32-07-4363Gnohncizj for malignant neoplasm of cervixPap SmearGUNNISON VALLEY [facility]OSPITAL HealthcareStart: 44-85-6532Stgnvlksr A Vaccines (1 of 2 - Risk 2-dose series)Hepatitis A Vaccines (1 of 2 - Risk 2-dose series)[facility] HospitalStart: 82-07-4862Kbjvfrxxt B Vaccines (1 of 3 - 19+ 3-dose series)Hepatitis B Vaccines (1 of 3 - 19+ 3-dose series)[facility] HealthcareStart: 18-43-6991Iyrlw microalbumin profileDTAP,TDAP,TD (1 - Tdap)[facility]: 22-65-3865OGIOKLIVD C SCREENINGHEPATITIS C SCREENINGMercy Health West Hospitaltart: 25-88-5673MVV SCREENINGHIV SCREENINGMercy Health West Hospitaltart: 59-70-0804GFsP/Tdap/Td Vaccines (1 - Tdap) DTaP/Tdap/Td Vaccines (1 - Tdap)[facility] HospitalStart: 92-61-7769PKL Vaccines (1 of 1 - Standard series)MMR Vaccines (1 of 1 - Standard series)[facility] Start: 68-46-1897OFNAESQLX B (1 of 3 - 3-dose series)HEPATITIS B (1 of 3 - 3- dose series)[facility]: 19-59-7027Cqqxysaqg for malignant neoplasm of colonGUNNISON VALLEY HOSPITAL HealthcarePatient EducationLow back pain in adultsCleveland Clinic [facility] Work Phone: THIN PREP TIS PAP AND HR HPV DNATHIN PREP TIS PAP AND HR HPV DNA Pathology and Cytology Routine Well woman exam with routine gynecol ogical exam Ordered: 03/29/2024[facility] Work Phone: comment on above:Ordered: [facility] Immunizations Immunization DateImmunizationNotesCare LxcpzcuaQiwdppmo51-64-6520ptwhmjfnm, seasonal, injectable, preservative Bull Galvez APRN Work Phone: [facility]09-09-2024influenza, injectable, felixin francesca canine kidney, preservative Jimenez Alba MD Work Phone: [facility] HospitalDauvfalkdn66-36-6176ueweanpuw virus vaccine, unspecified formulationEnrique Alba MD Work Phone: [phone] [place], [place] [address]Emhwcffwtv50-41-1258Unnlspizn, injectable, Madin Sandy Canine Kidney, preservative free, quadrivalentEnrique Alba MD Work Phone: [phone] [place], [place] [address]Gidoikmufh26-33-2489iwnlzmset virus vaccine, unspecified formulationEnrique Alba MD Work Phone: [phone] [place], [place] [address]Tzplyvvwme44-27-1741Mhdnkgbbc, injectable, Madin Francesca Canine Kidney, preservative free, quadrivalentEnrique Alba MD Work Phone: [phone] [place], [place] [address]Qacsrcdrav01-97-5777CCPR-OOE-3 (COVID-19) vaccine, mRNA, spike protein, LNP, bivalent, preservative free, 30 mcg/0.3 mL dose, joyce-sucrose formulationEnrique Alba MD Work Phone: [phone] [place], [place] [address]Vopyfslhnb66-75-8856qofxce vaccine recombinant Enrique Alba MD Work Phone: [phone] [place], [place] [address]Dtsalpvdkw03-48-8069hvvlhxcqa, injectable, quadrivalent, preservative freeEnrique Alba MD Work Phone: [phone] [place], [place] [address]Shzpuwchpe67-00-2383rwqwnw vaccine recombinant Enrique Alba MD Work Phone: [phone] [place], [place] [address]Mbywgrluta70-41-3678mibmaqaxp, injectable, quadrivalent, preservative freeEnrique Alba MD Work Phone: [phone] [place], [place] [address]Sxvpwwhdcv19-98-5223mswknspov, high dose seasonal, preservative-freeEnrique Alba MD Work Phone: [phone] [place], [place] [address]Giqxpkdqnd93-35-1050rklvpiarj, injectable, quadrivalent, preservative freeEnrique Alba MD Work Phone: [phone] [place], [place] [address]Xjlynsyeze60-78-0658Yhvvuapxc, injectable, Madin Sandy Canine Kidney, preservative free, quadrivalentEnrique Alba MD Work Phone: [phone] [place], [place] [address]Bcglhvwqdl73-95-2948Ittlimmgv, injectable, Madin Sandy Canine Kidney, quadrivalent with preservativeEnrique Alba MD Work Phone: [facility] HospitalPvbhqhvywn65-15-3540uwhsyscsh, injectable, quadrivalent, preservative freeEnrique Alba MD Work Phone: [facility] HospitalGhmeqfugxp76-28-7497fryegotrm, injectable, quadrivalent, preservative freeEnrique Alba MD Work Phone: [facility] HospitalNucwhjpvtm43-26-7431dgzlgfyrz, seasonal, injectable, preservative freeEdellie Alba MD Work Phone: [facility] HospitalXawqldazmu16-29-0962snlkyjqir, injectable, quadrivalent, preservative freeEdellie Alba MD Work Phone: [facility] HospitalVtjjvrwrbe22-43-1314takwcbetd, seasonal, injectable, preservative freeEdellie Alba MD Work Phone: [facility] HospitalJybnnxrrsa14-29-4683ujlrbpylq, injectable, quadrivalent, preservative freeEdellie Alba MD Work Phone: [facility] HospitalCzmpjeymlu55-43-8695cgjypztiu virus vaccine, whole virusEdellie Alba MD Work Phone: [facility] Payers DatePayer CategoryPayerPolicy [id number] [employer] [id number] 2022-[facility] [phone] [address] [address] [place] [id number] 61-27-4710Cqxpkxq Health [id number]681.315 [id number] 2.16.840.0.530284.27194798-40-8322Sicj-tkb63-62-2536 [id number] 2.840.1.572332.3.57[id number] 2.840.1.540821.3.57[id number] 2.840.1.800078.3.57[id number] 2.840.1.537492.3.57[id number] 2.0.1.853160.3.57[id number] 2.0.1.209412.3.57[id number] 2.0.1.564038.3.57[id number] 2.0.1.560645.3.57[id number] 2..1.731845.3.57[id number] 2..1.454370.3.57[id number] 2.0.1.794786.3.57[id number] 2..1.956180.3.57[id number] 2.0.1.824413.3.57[id number] 2.0.1.017687.3.57[id number] 2.0.1.452830.3.57[id number] 2.16.840.1.021686.3.579.[id number] 2.16.840.1.947042.3.579.2.531 Social History DateTypeDetailFacilityUnknown if ever smokedNort Paradine Other Start: 10-30-2022 End: 35-71-3436Qxx Assigned At BirthMercy Health West Hospitaltart: 10-16-2012 End: 80-98-2514Kmjdoae smoking status NHISNever smoked tobaccoUpper Valley Medical Center Work Phone: Start: 10-16-2012 End: 42-96-4976Ncgrjqy use and exposureSmokeless tobacco non-userUpper Valley Medical Center Work Phone: Start: 11-08-2019 End: 18-76-4855Gmzwqrb intakeCurrent non-drinker of alcohol (finding)[facility]tart: 65-65-8146Fym Assigned At BirthNot on fileMercy Health West Hospitaltart: 10-30-2022 End: 80-69-1489Jmqjdxk of Social functionMercy Health West Hospitaltart: 91-78-4348Eeesr Depression Screening Eusuufhprr7Eupczupne ClinicStart: 12-16-2023 End: 73-22-6572Pjmziphbs beverage intakeLifetime non-drinker (finding)[facility] HealthcareWithin the last [...] got money to buy more.Never trueNOMS HealthcareStart: 22-66-1019Zzegxvfoz56LLSX HealthcareStart: 11-13-2022 Alcohol CommentCaffeine intake: 2-3 cups per dayGUNNISON VALLEY HOSPITAL HealthcareSexFemale (finding)[facility] Centertart: 27-67-3707Dzd Assigned At [facility] Medical Equipment Procedure CodeEquipment CodeEquipment Original TextEquipment IdentifierDates Simplex P Bone Cement Radiopaque Full Dose Individual Pack - [id number] Start: 93-50-5594Jidiuhb P Bone Cement Radiopaque Full Dose Individual Pack - [id number]: 16-65-1643Nmht Fem 4 Lt Kn Cr Ivan Trthln - [id number]: 39-91-1963Eld Tib 3 9mm Kn X3 Cr Trthln - [id number] Start: 42-61-2497Jgzg Pat 10mm 32mm Asym Trthln - [id number]: 95-30-0743Yjrm Pat 10mm 32mm Asym Trthln - [id number]: 03-30-2013 Baseplt Tib Trthln 4 Prim - [id number]: 62-89-5327Zngzypx Tib Trthln 3 Prim - [id number]: 03-30-2013 Functional Status BqxmXrpjtmfooiLrnaeaUvanhlau37-48-8392Rxzpepi Health Questionnaire 2 item (PHQ- 2) [Reported][facility] Clinical Notes 01-30-2022 to 03-07-2025 Note Date & DogjIcrdYxbujfyk08-18-4487 NoteSubjective Patient ID: Naima Hernandez is a [...] stairs to her daughter's dorm room at [employer]. Hypertension Associated symptoms include palpitations and shortness [...] expected risks of cath including bleeding, , ID, vascular injury, etc., she voices understanding. Plan L radial access to limit bleeding and other risks. Diagnosis Plan 1. Tachycardia 2. Ventricular ectopy No orders of the defined types were placed in this encounter. No results found for this or any previous visit (from the past 36 hours). No follow-ups on file.[facility]10-22-2025 Note Subjective Patient ID: Naima Hernandez is [...] Diabetes mellitus type II, non insulin dependent ([facility]) lisinopril 20 mg tablet Ambulatory [...] the past 36 hours). No follow-ups on file.[facility]10-08-2025 Evaluation note* Diagnosis Onset Date Resolution Status Admit Date Depression with anxiety acuteOctober 2024 8:46amHypercholesterolemiaacuteOctober 2024 8:46am Low back painacuteOctober 2024 8:46amRestless legacuteOctober 2024 8:46amType 2 diabetes mellitusacuteOctober 2024 8:46amAnxietyacuteNovember 2024 8:20amType 2 diabetes mellitusacuteNovember 2024 8:20am [facility] Work Phone: [phone] 224-196607-15-2025 Telephone encounter Note* Telephone Encounter - Enrique Alba MD - 11/09/2024 1:48 PM EDT I did review the patient's previous Holter monitor and both sections of her stress testing. I did a quick search on shortened TN interval during recovery phase only for Lexiscan and really could not find any significant information. Most of the problem seems to be with prolonged TN intervals. I did call the patient and [...] hips bother her and I refilled that. [facility] HospitalJmjuejqgln80-02-8594 Miscellaneous Notes* Telephone Encounter - Enrique Alba MD - 11/09/2024 1:48 PM EDT I did review the patient's previous Holter monitor and both sections of her stress testing. I did a quick search on shortened TN interval during recovery phase only for Lexiscan and really could not find any significant information. Most of the problem seems to be with prolonged TN intervals. I did call the patient and [...] 11/09/2024 1:19 PM EDT Copied from : Id, July, it is Mary Gabriel. I received a notification from [employer] that the rest of my nuclear stress [...] let me know, I would appreciate it. [phone]. , July. documented in this encounterChildren's Mercy HospitalQrpbnitwwn95-25-1868 Telephone encounter Note* Telephone Encounter - Imelda Ramos MA - 11/09/2024 1:19 PM EDT Copied from : Id, July, it is Mary Gabriel. I received [...] let me know, I would appreciate it. [phone]. July. [facility] HospitalKveplstbnv08-17-7604 History of Present illness Narrative* Enrique Alba [...] lifestyle. Aggravating factors: started at [employer] and intermittently she has it while she [...] problem that has been going on since [facility] No cause is established today. [...] Future - Holter monitor documented in this encounterChildren's Mercy HospitalUrycvwjhol03-64-8909 History of Present illness Narrative* Enrique Alba [...] Defines a morbid obesity documented in this encounterChildren's Mercy HospitalZjifbmqryj55-42-8274 Miscellaneous Notes* Telephone Encounter - Luis Eduardo [...] plantar calcaneal enthesophyte documented in this encounterNOMS Ldzdacvmpa91-35-2071 Telephone encounter Note* Telephone Encounter - Luis [...] midfoot arthrosis Small plantar calcaneal enthesophyte [facility] Kgamcqhxcb45-91-3130 History of Present illness Narrative* Luis Eduardo [...] enthesophyte See telephone encounter. documented in this encounterChildren's Mercy HospitalRffxnoomuk07-93-5261 History of Present illness Narrative* Beatriz Chavis [...] improve. Beatriz Chavis NP documented in this encounterChildren's Mercy HospitalZiqyijxvvp43-08-2255 History of Present illness Narrative* Enrique Alba [...] Dispense:7 tablet; Refill: 0 documented in this encounterChildren's Mercy HospitalEmisknljhw39-60-6371 History of Present illness Narrative* OSVALDO Wilks [...] glucose tolerance) 09/17/2022 Hepatitis 09/17/2022 HTN (hypertension) ([facility]) 09/17/2022 Insomnia due to other mental disorder 09/17/2022 Mixed dyslipidemia ([facility]) 09/17/2022 Morbid obesity ([facility]) 09/17/2022 Obstructive sleep apnea hypopnea, moderate 09/17/2022 Osteoarthritis of joint of toe of right foot 09/17/2022 Other chronic pain 09/17/2022 Overactive bladder 09/17/2022 Primary osteoarthritis, right hand 09/17/2022 Recurrent major depressive disorder, in partial remission (HCC) ([facility]) 09/17/2022 Sleep disorder 09/17/2022 Status post bilateral knee replacements 09/17/2022 Enuresis 09/17/2022 Urinary incontinence 09/17/2022 Adult BMI 45.0-49.9 kg/sq m ([facility]/HCC) 05/14/2023 Restless leg syndrome 08/14/2023 Pre-diabetes 03/20/2024 [...] JOINT REPLACEMENT OTHER SURGICAL HISTORY bilateral arthroscopy TN LAP,CHOLECYSTECTOMY 2016 TOTAL KNEE ARTHROPLASTY Bilateral 2014 [...] nursing note reviewed. Exam conducted with a oven tender bagels present. Vitals: Estimated body mass index is [...] behalf of: OSVALDO Wilks documented in this encounterChildren's Mercy HospitalGllvtydwnn18-47-9062 History of Present illness Narrative* Enrique Alba [...] which [facility] the [facility] was [facility]. A new prescription for the 160 mg was sent. documented in this encounterChildren's Mercy HospitalXqqcvibpeu86-51-4118 History of Present illness Narrative* Enrique Alba MD - 02/25/2024 3:30 PM EDT Images from the original note were not included. Patient ID: Naima Hernandez is a 53 y.o. female who presents for: See Scanned Wellness packet Advance Directive/Living Will: No Health Care Power of Mexican Food Maker: No Review of Systems Constitutional: Positive for [...] through a living will, durable power of collections attorney for healthcare, or other advanced directives. [...] Future - Lipid panel 7. Primary hypertension ([facility]/HCC) Chronic problem, stable, to goal - Comprehensive [...] mammogram with tomosynthesis; Future documented in this encounterNOPike County Memorial HospitalDrrejyjbod75-75-9236 Telephone encounter Note* Telephone Encounter - Enriqeu Alba MD - 12/25/2023 11:16 AM EDT Rx sent [facility] Mhgrbutzam63-93-2175 Miscellaneous Notes* Telephone Encounter - Enrique Alba MD - 12/25/2023 11:16 AM EDT Rx sent documented in this encounterChildren's Mercy HospitalYiivgusmnh33-56-4330 History of Present illness Narrative* Enrique Alba [...] 45.0-49.9 kg/sq m (CMS/HCC) documented in this encounterChildren's Mercy HospitalBlttzkgwjd27-81-8059 NoteHNO ID: [id number] Author: Taylor Gee RD Service: ? Author Type: Registered Dietitian Type: Progress Notes Filed: 12/05/2022 2:43 PM Note Text: [facility] Nutrition Therapy: Virtual Consult - Initial Assessment I have communicated my name and active licensure. The patient?s identity and physical location were verified at the time of this visit. Either the patient or their legal traffic representative has been informed of the risks [...] 4-5 months on same day as Dr. Hernnadez Patient presents with fatty liver for nutrition [...] cheese or fruit or none Lunch - 32a-5pb-lzedq w/ chicken/ham, makenzie, onion, pepper FF ranch [...] Fullerming DATE: 12/05/2022 TIME: 2:05 PM PAGER: [id number] [facility]als [facility]08-10-2023 History of Present illness Narrative* Taylor Gee RD - 12/05/2022 2:02 PM EDT [facility] Nutrition Therapy: Virtual Consult - Initial Assessment I have communicated my name and active licensure. The patient s identity and physical location wereverified at the time of this visit. Either the patient or their legal traffic representative has been informed of the risks [...] Orgain Clean Protein, Slimfast High Protein, Atkins, Talk Local Core Power, Talk Local Nutrition Plan 6. Choose lean protein sources [...] cheese or fruit or none Lunch - 47e-7wt-wwphq w/ chicken/ham, makenzie, onion, pepper FF ranch [...] Hernandez DATE: 12/05/2022 TIME: 2:05 PM PAGER: [phone] documented in this encounterUpper Valley Medical Center07-05-2023 NoteHNO ID: [id number] Author: Radha Hernandez MD Service: ? Author Type: Physician Type: Progress Notes Filed: 10/30/2022 2:34 PM Note Text: Hepatology Clinic Mindy Richey MD, FACG, FAASLD Director, [facility] Consult Requested By: Mike Salgado [address] [facility] [address] for evaluation of her fatty liver .. 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 Please feel free to contact me if I can be of further assistance to you {I spent 45 minutes in the visit, with more than 50% of the total wwrq-cz-hdbj time of the visit in counseling / coordination of care.[facility]07-05-2023 History of Present illness Narrative* Radha Hernandez MD - 10/30/2022 1:30 PM EDT Images from the original note were not included. Hepatology Clinic Mindy Richey MD, FACG, FAASLD Director, [facility] Consult Requested By: Mike Salgado [address] [facility] [address] for evaluation of her fatty liver .. 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 Please feel free to contact me if I can be of further assistance to you {I spent 45 minutes in the visit, with more than 50% of the total jttm-jl-qmaz time of the visit incounseling / coordination of care. documented in this encounterUpper Valley Medical Center04-06-2023 NoteHNO ID: [id number] Author: Mariajose Stallworth MD Service: ? Author Type: Physician Type: Progress Notes Filed: 08/01/2022 3:52 PM Note Text: Rheumatology Outpatient Clinic Date of Service: 08/01/2022 Patient: Naima Hernandez Medical Record: [id number] Primary Care Physician: Zeferino Flores Last Rheumatology visit: None at [facility] History of Present Illness Naima Hernandez is [...] , low transverse COLONOSCOP W/ OR W/O [facility] SPEC Colonoscopy EGD EXTRACTION, ERUPTED [...] mouth as needed. meloxicam (more content not included)...[facility]04-06-2023 History of Present illness Narrative* Mariajose Stallworth MD - 08/01/2022 3:09 PM EDT Images from the original note were not included. Rheumatology Outpatient Clinic Date of Service: 08/01/2022 Patient: Naima Hernandez Medical Record: [id number] Primary Care Physician: Zeferino Flores Last Rheumatology visit: None at [facility] History of Present Illness Naima Hernandez is [...] , low transverse COLONOSCOP W/ OR W/O [facility] SPEC Colonoscopy EGD EXTRACTION, ERUPTED [...] There is narrowing of all interphalangeal joints. Sprinkler Repair Technician: MARJ Transcribe Date/Time: Oct 10 2019 10:51A... [...] which included preparing to see the patient, phvb-by-npko patient care, completing clinical documentation, obtaining and/or [...] 2022 Time: 3:09 PM documented in this encounterUpper Valley Medical Center01-10-2023 Evaluation note* Encounter Date Diagnosis Assessment Notes Treatment Notes Treatment Clinical Notes Apr, Fatty liver (ICD-10 - K76.0) LABS PATIENT ENCOURAGED WEIGHT LOSS. REFERRAL TO WEIGHT LOSS CLINIC WITH DR. LI. Apr,Elevated liver enzymes (ICD-10 - R74.8) [employer] Other 10-05-2022 Evaluation note* Encounter Date Diagnosis [...] start vitamin e and milk thistle OTC [facility] Other Evaluation noteNo InformationNortNovaPlanner Other Evaluation note* Diagnosis Erosive osteoarthritis of both hands- Primary Primary osteoarthritis involving multiple joints NSAID long-term use Encounter for long-term (current) use of non-steroidal anti-inflammatories documented in this encounter [facility] CenterEvaluation [facility]* Diagnosis Fatty liver- Primary Other chronic nonalcoholic liver disease Class 3 severe obesity due to excess calories in adult, unspecified BMI, unspecified whether serious comorbidity present (HCC) documented in this encounter [facility] CenterEvaluation [facility]* Diagnosis Fatty liver Other chronic nonalcoholic liver disease documented in this encounter [facility] CenterEvaluation [facility]* Diagnosis Encounter for wellness examination in adult- Primary Advance directive discussed with patient Morbid obesity (CMS/HCC) Morbid obesity Adult BMI 45.0-49.9 kg/sq m (CMS/HCC) Glucose intolerance (impaired glucose tolerance) Impaired glucose tolerance test Mixed hyperlipidemia ([facility]/HCC) Mixed hyperlipidemia Primary hypertension ([facility]/HCC) Unspecified essential hypertension Menopausal and female climacteric states Osteoporosis screening Special screening for osteoporosis Encounter for follow-up examination after completed treatment for conditions other than malignant neoplasm Screening mammogram for breast cancer documented in this encounter [facility] HealthcareEvaluation note* Diagnosis Mixed dyslipidemia (CMS/HCC) documented in this encounter [facility] HealthcareEvaluation note* Diagnosis Pre-diabetes- Primary Other abnormal glucose Restless leg syndrome Restless legs syndrome (RLS) Mixed dyslipidemia ([facility]/HCC) documented in this encounter [facility] HealthcareEvaluation note* Diagnosis Well woman [...] in partial remission (HCC) (CMS/HCC) Morbid obesity ([facility]/HCC) Morbid obesity Adult BMI 45.0-49.9 kg/sq m ([facility]) documented in this encounter [facility] HealthcareEvaluation note* Diagnosis Recurrent major depressive disorder, in partial remission (HCC) ([facility]/HCC)- Primary documented in this encounter [facility] [...] kg/sq m (CMS/HCC) documented in this encounter [facility] HealthcareEvaluation note* Diagnosis Palpitations- Primary Tachycardia Unspecified tachycardia documented in this encounter [facility] HealthcareEvaluation note* Diagnosis Palpitations- Primary Primary hypertension Unspecified essential hypertension Bilateral hip pain Pain in joint, pelvic region and thigh documented in this encounter [facility] HealthcareEvaluation note* Diagnosis Onset Date Resolution Status Admit Date Depression with anxiety acuteOctober 2024 8:46am [facility] Work Phone: History general Narrative - Reported* Type Description Date Medical History Unspecified essential hypertensi on Medical HistoryHypercholesterolemiaMedical HistoryDepression with anxiety Surgical HistoryC/[id number] HistoryBilateral knee [id number] Surgical HistorycholecystectomySurgical Historywisdom teethSurgical Historycyst removalHospitalization HistorySee past surgical hx [employer] Other Reason for referral (narrative)No reason for referral information availableC[facility] Work Phone: Reason for visit NarrativePT HERE REQ OF DR. ALBA FOR ELEVATED LIVER ENZYMES, (referral note received)[employer] Other Summary Purpose Family History Relationship Condition [...] THERAPY MEDICAL NUTRITION ASSMT&IVNTJ INDIV EACH 15 ID MEDICAL NUTRITION ASSMT&IVNTJ INDIV EACH 15 ID MEDICAL NUTRITION ASSMT&IVNTJ INDIV EACH 15 ID MEDICAL NUTRITION ASSMT&IVNTJ INDIV EACH 15 ID Radha Abdul MD [address] [place] [address] Referral IDStaChris DateExpiration DateVisits RequestedVisits [id number] PCP Requested Referral Chief Complaint and Reason [...] section and content) DATE CREATED AUTHOR 12/24/2019 [facility] DATE CREATED AUTHOR AUTHOR'S ORGANIZ ATION 11/14/2021 [facility] DATE CREATED AUTHOR AUTHOR'S ORGANIZ ATION 03/07/2022 [facility] DATE CREATED AUTHOR AUTHOR'S ORGANIZ ATION 12/06/2022 [facility] DATE CREATED AUTHOR AUTHOR'S ORGANIZ ATION 09/04/2024 [facility] DATE CREATED AUTHOR AUTHOR'S ORGANIZ ATION 03/07/2025 [facility] REASON FOR VISIT (unrecogniz ed section and content) ReasonCommentsNew PatientArthritis in handsJoint PainReasonCommentsNew Patient Consult for fatty liverSpecialtyDiagnoses / ProceduresReferred By Contact Referred To ContactGastroenterology / GASTROENTEROLOGY Diagnoses Encounter for follow-up examination after completed treatment for conditions other than malignant neoplasm Fatty liver Procedures OFFICE/OUTPATIENT ESTABLISHED MOD MDM 30-39 MIN NEW DDI PATIENT Mike Salgado DO [address] [place] [address] Radha Abdul MD [address] [place] [address] Referral IDStatusReasonStart DateExpiration DateVisits RequestedVisits [id number] Education AssessmentSpecialtyDiagnoses / ProceduresReferred By ContactReferred To Contact Nutrition Diagnoses Fatty liver Procedures CONSULT TO NUTRITION THERAPY MEDICAL NUTRITION ASSMT&IVNTJ INDIV EACH 15 ID MEDICAL NUTRITION ASSMT&IVNTJ INDIV EACH 15 ID MEDICAL NUTRITION ASSMT&IVNTJ INDIV EACH 15 ID MEDICAL NUTRITION ASSMT&IVNTJ INDIV EACH 15 ID Radha Abdul MD [address] [place] [id number] Referral IDStatusReasonStart DateExpiration DateVisits RequestedVisits [id number] PCP Requested Referral /[id number] ExamReasonCommentsMed Change Request ReasonCommentsResultsReasonCommentsWell Women VisitReasonCommentsURIReason CommentsAnxietyReasonCommentsMed RefillReasonCommentsHypertensionHyperlipidemia AnxietySleeping ProblemReasonCommentsPalpitationsReasonOnset DateCommentsCare Kfvzgnvgalzy72/15/2025 Source Comments (unrecognize d section and content) In the event this informatio n is protected by the Federal Confidentiality of Alcohol and Drug Abuse Patient Records regulations: The Federal rules restrict any use of the information to criminally investigate or prosecute any alcohol or drug abuse patient.[facility] CenterIn the event this information is protected by the Federal Confidentiality of Alcohol and Drug Abuse Patient Records regulations: The Federal rules restrict any use of the information to criminally investigate or prosecute any alcohol or drug abuse patient.[facility] CenterIn the event this information is protected by the Federal Confidentiality of Alcohol and Drug Abuse Patient Records regulations: The Federal rules restrict any use of the information to criminally investigate or prosecute any alcohol or drug abuse patient.[facility] Care Teams (unrecognized sec tion and content) Team MemberRelationshipSpecialtyStart DateEnd Date Zeferino Flores PCP - GeneralInternal Medicine08/26/12Team MemberRelationshipSpecialtyStart Date End Date Zeferino Flores PCP - GeneralInternal Medicine08/26/12Team MemberRelationshipSpecialtyStart Date End Date Zeferino Flores PCP - GeneralInternal Medicine08/26/[address] [place] [address] Registered DietitianNutrition12/05/22Team MemberRelationshipSpecialtyStart Date End Date Enrique [...] Date Enrique Alba MD [address] [place] [phone] PCP - GeneralFamily Medicine5//23Team MemberRelationshipSpecialtyStart DateEnd Date Enrique Alba MD [address] [place] [phone] PCP - GeneralFamily Medicine09/16/22Team MemberRelationshipSpecialtyStart DateEnd Date [...] Member Role Status Dates Maribeth Galvez APRN COMMERCIAL MAINTENANCE TECHNICIAN-C Primary Care Provider Active Team Status: Inactive Member Role Status Dates Maribeth Galvez APRN COMMERCIAL MAINTENANCE TECHNICIAN-C Primary Care Provider Active Start: February 02, 2025 End: February 02, 2025Patrickedwige Galvez APRN COMMERCIAL MAINTENANCE TECHNICIAN-CAttending ProviderActive Start: February 02, 2025 End: February 02, 2025 Team Status: Active Member Role/Relationship Status Dates Maribeth NATALIA Galvez COMMERCIAL MAINTENANCE TECHNICIAN-C Primary Care Provider Active Team Status: Inactive Member Role/Relationship Status Dates Maribeth NATALIA Galvez COMMERCIAL MAINTENANCE TECHNICIAN-C Primary Care Provider Active Start: February 02, 2025 End: February 02, 2025Patrickedwige Galvez FAGOTER COMMERCIAL MAINTENANCE TECHNICIAN-CAttending ProviderActive Start: February 02, 2025 End: February 02, 2025 Team Status: Inactive Member Role/Relationship Status Dates Maribeth NATALIA Galvez COMMERCIAL MAINTENANCE TECHNICIAN-C Primary Care Provider Active Start: February End: March 02, 2025Patrickedwige Galvez FAGOTER COMMERCIAL MAINTENANCE TECHNICIAN-CAttending ProviderActive Start: March 02, 2025 End: March [...] BE BASED ON THE PRIMARY CLINICAL RECORDS. [employer] provides no warranty or guarantee of the accuracy or completeness of information in this document.
[2025-04-07 15:08] LABS: Age Gdln ACOG Testing Note (.); IGP, Aptima HPV, rfx 16/18,45 Note (.)
== END 2025-04-04 19:57 | disposition home or self-care (01) ==
LOC: LAB 19:56
PROVIDERS: PCP Nurse Practitioner Family; Visit Provider Physician Assistant
DX: Z01.419 Encounter for gynecological examination (general) (routine) without abnormal findings (principal)
CPT/HCPCS: 87624; 88175